=== PATIENT | female | born 1955 | race Caucasian/White ===

== ENCOUNTER 2019-04-26 13:24 | Outpatient (CLI) | payer BC, MEDICARE, SELFPAY ==
--- NOTE | ~2019-04-26 | XR_ITS ---
XR thoracic spine 3V 04/26/2019 14:24 Indication: Back pain Procedure: 3 views thoracic spine Comparison: No prior studies for comparison. Findings: There is mild thoracic spondylosis. No fracture, subluxation or dislocation. There is mild shaped curvature of the thoracic spine. Paraspinal soft tissues within normal limits. Pedicles are in tact. Surrounding osseous structures are unremarkable. Impression: 1: Mild thoracic spondylosis. Reviewed, dictated and finalized at location A. CTOR DATA ARCHITECTURE Impression: 1: Mild thoracic spondylosis.
--- NOTE | ~2019-04-26 | XR_ITS ---
XR lumbar spine 2-3V 04/26/2019 14:24 Indication: Low back pain Procedure: 3 views lumbar spine Comparison: No prior studies for comparison. Findings: There is mild disc narrowing at all lumbar levels. No fracture, subluxation or dislocation. No evidence for spondylolysis or spondylolisthesis. There is atherosclerosis of the aorta. Impression: 1: Mild lumbar spondylosis. Reviewed, dictated and finalized at location A. WORKER Impression: 1: Mild lumbar spondylosis.
--- NOTE | ~2019-04-26 | CT_ITS ---
EXAMINATION:CT lung screening DATE: 04/26/2019 14:12 INDICATION: Tobacco use. Current smoker with 50 pack year history. TECHNIQUE: Computed tomography (CT) of the chest was performed without intravenous contrast. Automate d exposure control and iterative reconstruction technique were employed. The dose-length product (DLP ) was 146.18 mGy-cm. COMPARISON: CT abdomen and pelvis 08/03/2018 FINDINGS: There is mild emphysema. There is mild scarring at the lung apices. Again seen is a 4 mm no dule in left lower lobe. There are mild chronic peripheral reticular opacities in the inferior lungs. There are a few other scattered nodules in the lungs measuring up to 3 mm. No pleural effusion. The heart size is normal. There are coronary artery calcifications. No pericardial effusion. There is a s mall sliding hiatal hernia. There is mild thoracic spondylosis. IMPRESSION: 1. Lung-RADS category 2: Benign appearance or behavior. Continue annual screening with noncontrast lo w-dose chest CT in 12 months. Reviewed, dictated and finalized at location B. ITY REVIEWER IMPRESSION: 1. Lung-RADS category 2: Benign appearance or behavior. Continue annual screeni ng with noncontrast low-dose chest CT in 12 months.
--- NOTE | ~2019-04-26 | XR_ITS ---
EXAMINATION: XR chest 2V 04/26/2019 14:24 INDICATION: Tobacco use. PROCEDURE: 2 view chest COMPARISON: Comparison to multiple prior studies sequentially, with oldest reviewed study dated 01/12. FINDINGS: The lungs are clear. The cardiomediastinal silhouette is within normal limits. There are no pleural effusions. There is no pneumothorax suspected. IMPRESSION: 1: NO ACUTE CARDIOPULMONARY DISEASE. Reviewed, dictated and finalized at location A. UTING ARCHITECT
--- NOTE | ~2019-04-26 | XR_ITS ---
EXAMINATION: XR tibia fibula RT 2V DATE: 04/26/2019 14:24 INDICATION: Right knee pain TECHNIQUE: Anteroposterior and lateral views of the right tibia and fibula were obtained. COMPARISON: Right knee radiographs dated 09/06/2018 FINDINGS: Right total knee arthroplasty with patellar resurfacing which appears to remain well seated in near-a natomic alignment. No fracture. Normal joint space at the right ankle and hindfoot. Soft tissues are unremarkable. No right ankle joint effusion. IMPRESSION: 1. Right total knee arthroplasty. No acute osseous abnormality. Reviewed, dictated and finalized at location A. RANGER
--- NOTE | ~2019-04-26 | XR_ITS ---
EXAMINATION: XR tibia fibula LT 2V DATE: 04/26/2019 14:24 INDICATION: Left knee pain TECHNIQUE: Anteroposterior and lateral views of the left tibia and fibula were obtained. COMPARISON: Left knee radiographs dated 12/04/2014 FINDINGS: Again seen is a left total knee arthroplasty with patellar resurfacing which appears to remain well s eated in near anatomic alignment. No fracture. No periprosthetic lucency to suggest loosening or infe ction. Although only partially imaged at the cephalad margin of the adonj-mt-lusg there appears to be increased density at the suprapatellar pouch suggesting a possible left knee joint effusion. Left an kle joint space appears relatively preserved. There is however a small lucent lesion with thin sclero tic margins at the medial aspect of the talar dome consistent with degenerative subchondral cyst or o steochondral lesion. No left ankle joint effusion. Soft tissues are otherwise unremarkable. IMPRESSION: 1. Left total knee arthroplasty with suggestion of possible left knee joint effusion. 2. Likely osteochondral lesion at the medial aspect of the talar dome. Reviewed, dictated and finalized at location A. K TECHNICIAN IMPRESSION: 1. Left total knee arthroplasty with suggestion of possible left knee joint eff usion. 2. Likely osteochondral lesion at the medial aspect of the talar dome.
[2019-04-26 14:35] LABS: Hematocrit 44.6 % (37.0-47.0); Hemoglobin 14.1 g/dL (12.0-15.0); Mean Corpuscular HGB Conc 31.6 g/dl (32-36); Mean Corpuscular Hemoglobin 29.1 pg (26-34); Mean Corpuscular Volume 92.1 fl (80-100); Mean Platelet Volume 10.7 fl (7.4-10.4); Platelet Count Result 270 k/mm3 (150-375); Red Blood Count 4.84 M/mm3 (4.2-5.4); Red Cell Distribution Width 14.6 % (11.5-14.5); White Blood Count 7.1 K/mm3 (4.5-10.0)
[2019-04-26 14:37] LABS: Add Urine Microscopic? NO; Appearance Urine Clear (Clear); Bilirubin Urine Negative (Negative); Blood Urine Negative (Negative); Color Urine Straw (Yellow); Glucose Urine UA Negative (Negative); Ketones Urine Negative (Negative); Leukocyte Esterase Ur Negative LEU/UL (NEGATIVE); Nitrate Urine Negative (Negative); Protein Urine Negative (Negative); Specific Grav Ur 1.009 (1.001-1.035); Urobilinogen Urine Negative mg/dL (<2.0)
[2019-04-26 14:48] LABS: Alanine Aminotransferase 19 U/L (4-35); Albumin Level 4.2 g/dL (3.5-5.1); Alkaline Phosphatase 139 U/L (38-126); Amylase 72 U/L (30-110); Aspartate Amino Transferase 22 U/L (14-36); Bilirubin,Total 0.6 mg/dL (0.2-1.3); Blood Urea Nitrogen 10 mg/dL (7-17); Calcium 9.7 mg/dL (8.4-10.2); Carbon Dioxide 28 mmol/L (22-30); Chloride 103 mmol/L (98-107); Cholesterol 133 mg/dL (0-200); Estimated Glomerular Filt Rate > 60; Glucose 105 mg/dL (65-105); HDL Direct 29 mg/dL; Lipase 150 U/L (23-300); Phosphorus 3.9 mg/dL (2.5-4.5); Sodium 140 mmol/L (137-145); Triglycerides 177 mg/dL (<150)
[2019-04-26 14:51] LABS: Hemoglobin A1C 7.2 % (<5.7)
[2019-04-26 15:00] LABS: LDL Cholesterol Direct 84 mg/dL
[2019-04-26 15:05] LABS: Erythrocyte Sedimentation Rate 29 mm/hr (0-20)
[2019-04-26 15:06] LABS: Creatinine Urine 31.9 mg/dL
[2019-04-26 15:18] LABS: Hepatitis B Surface Antigen Negative (Negative)
[2019-04-26 15:24] LABS: Free T4 Free Thyroxine 1.18 ng/mL (0.78-2.19); HAV RESULT Negative (Negative); Hepatitis B Core IgM Result Negative (Negative)
[2019-04-26 15:33] LABS: Microalbumin Urine Random < 6.0 mg/L (0-16.7)
[2019-04-26 15:34] LABS: MALB Creatinine Ratio < 18.8 mg/g (0-30)
[2019-04-26 15:36] LABS: Hepatitis C Virus Antibody Negative (Negative)
== END 2019-04-26 13:25 | disposition home or self-care (01) ==
LOC: ANHIMG 13:30
PROVIDERS: Visit Provider Emergency Medicine
DX: M12.9 Arthropathy, unspecified (principal); E11.9 Type 2 diabetes mellitus without complications; R05 Cough; Z12.2 Encounter for screening for malignant neoplasm of respiratory organs; Z72.0 Tobacco use
CPT/HCPCS: 36415; 71046; 72072; 72100; 73590; 80053; 80061; 80069; 81003; 82043; 82150; 83036; 83690; 84100; 84439; 84443; 85027; 85652; 86038; 86039; G0297

== ENCOUNTER 2019-07-25 10:06 | Outpatient (CLI) | payer BC, MEDICARE, SELFPAY ==
[2019-07-25] VITALS (7 sets, daily range): PULSE 73–101; O2SAT 85–97
--- NOTE | 2019-07-25 12:02 | HOMEO2EVAL ---
Home Oxygen Evaluation RC: Home Oxygen (O2) Evaluation Start: 07/25/19 11:53 Freq: Status: Active Protocol: RPE Activity Type Activity Date Activity User E-Sign Co-Sign Detail Recorded Client Recorded Date Recorded By Document 07/25/19 11:00 LORIE [email or web address] 07/25/19 12:02 LORIE Document 07/25/19 11:03 LORIE [email or web address] 07/25/19 12:02 LORIE Document 07/25/19 11:05 LORIE [email or web address] 07/25/19 12:02 LORIE Document 07/25/19 11:07 LORIE [email or web address] 07/25/19 12:02 LORIE Document 07/25/19 11:10 LORIE [email or web address] 07/25/19 12:02 LORIE Document 07/25/19 11:13 LORIE [email or web address] 07/25/19 12:02 LORIE Document 07/25/19 11:25 LORIE [email or web address] 07/25/19 12:02 LORIE 07/25/19 07/25/19 07/25/19 11:00 11:03 11:05 Home O2 Evaluation Test Phase Resting Exercise Exercise Oxygen Delivery Room Air Room Air Nasal Cannula Oxygen Flow Rate (L/min) 1 Pulse Oximetry (90-100 %) 97 85 L 85 L Pulse Rate (60-100 beats/min) 73 101 H Ambulation Distance (feet) Home Oxygen Evaluation Comments Treatment Charges O2 Evaluation 07/25/19 07/25/19 07/25/19 11:07 11:10 11:13 Home O2 Evaluation Test Phase Exercise Exercise Exercise Oxygen Delivery Nasal Cannula Nasal Cannula Nasal Cannula Oxygen Flow Rate (L/min) 2 3 4 Pulse Oximetry (90-100 %) 86 L 87 L 91 Pulse Rate (60-100 beats/min) 92 90 Ambulation Distance (feet) 600 Home Oxygen Evaluation Comments PT REQUIRES 4 L WITH ACTIVITY ONLY Treatment Charges 07/25/19 11:25 Home O2 Evaluation Test Phase Resting Oxygen Delivery Room Air Oxygen Flow Rate (L/min) Pulse Oximetry (90-100 %) 96 Pulse Rate (60-100 beats/min) 76 Ambulation Distance (feet) Home Oxygen Evaluation Comments Treatment Charges
--- NOTE | 2019-07-25 12:03 | PCRCNOTE ---
NO 6MWT COMPLETED, PT DESATS WITH WALKING, HOME O2 EVAL COMPLETED AND FAXED TO DR OFFICE. NEEDED 4 L WITH ACTIVITY. OFFICE TO SET UP
--- NOTE | 2019-07-25 12:04 | PCRCNOTE ---
NO POST SPIROMETRY COMPLETED. PT USED ALBUTEROL INHALER BEFORE COMING IN FOR TEST.
--- NOTE | 2019-07-29 14:02 | WPDPFTINT ---
PFT Interpretation PFT Interpretation: DOS: 07/25/2019 REQUESTING: Dr Neal REASON FOR TESTING: Shortness of breath PULMONARY FUNCTION TESTS Results are reproducible. Spirometry: FEV1 is 61%, moderately reduced, 1.3 L. FVC is mildly reduced, 71% predicted. FEV1% is reduced consistent with airflow obstruction. The [facility]01-07% is extremely reduced 30%. No bronchodilator was given as the patient used albuterol prior to arrival for testing. Lung volumes: Total lung capacity is 118%, normal. Residual volume is severely increased at 193% predicted consistent with air trapping. Diffusion: DLCO is 54%, moderately decreased. Flow volume loop: Irregular in shape, not reliable. IMPRESSION: Moderate obstructive ventilatory impairment, severe air trapping, moderate diffusion impairment. No bronchodilator was given due to the patient using albuterol prior to testing. This pattern can be seen in emphysema. Carole Neal MD
== END 2019-07-25 10:07 | disposition home or self-care (01) ==
PROVIDERS: PCP Family Medicine; Visit Provider Internal Medicine Critical Care Medicine
DX: J44.9 Chronic obstructive pulmonary disease, unspecified (principal)
CPT/HCPCS: 94375; 94618; 94726; 94729

== ENCOUNTER 2019-11-27 09:07 | Outpatient (CLI) | payer BC, MEDICARE, SELFPAY ==
--- NOTE | ~2019-11-27 | US_ITS ---
EXAMINATION: US aorta DATE: 11/27/2019 09:38 INDICATION: Abdominal aortic aneurysm without rupture TECHNIQUE: Grayscale, color Doppler, and pulsed Doppler images of the aorta and common iliac arteries were obtained. COMPARISON: 07/03/2018 FINDINGS: Maximum vascular dimensions are as follows: Proximal aorta: 2.5 cm Mid aorta: 2.3 cm Distal aorta: 4.4 cm Right common iliac artery: 1.4 cm Left common iliac artery: 1.8 cm Again seen is a fusiform infrarenal abdominal aortic aneurysm which measures 4.4 x 4.0 cm, previously up to 3.5 cm. IMPRESSION: 1. Fusiform infrarenal abdominal aortic aneurysm with sonographic increase in size. Reviewed, dictated and finalized at location A. IMPRESSION: 1. Fusiform infrarenal abdominal aortic aneurysm with sonographic increase in s ize.
== END 2019-11-27 09:08 | disposition home or self-care (01) ==
LOC: ANHIMG 09:12
PROVIDERS: PCP Family Medicine; Visit Provider Family Medicine
DX: I71.4 Abdominal aortic aneurysm, without rupture (principal)
CPT/HCPCS: 76775

== ENCOUNTER 2020-02-12 07:45 | Outpatient (CLI) | payer BC, MEDICARE, SELFPAY ==
--- NOTE | ~2020-02-12 | MR_ITS ---
EXAMINATION: MR MRCP wo con/w 3D wo ind pp DATE: 02/12/2020 09:15 INDICATION: Pancreatic cyst. TECHNIQUE: Magnetic resonance imaging (MRI) of the abdomen was performed without and with 16 mL Multi Agustin intravenous contrast. Sequences included coronal T2-weighted FS FSE, coronal T2-weighted FSE, a xial T1-weighted LAVA, coronal FS FIESTA, axial dual-echo T1-weighted SPGR, coronal lava-FLEX, sagitt al T2-weighted FSE, axial T2-weighted FSE, and axial DWI. Thick-slab T2-weighted FSE images were obta ined for magnetic resonance cholangiopancreatography (MRCP). Maximum intensity projection 3-D reconst ructions of the volumetric data were created by the technologist. Postcontrast sequences included cor onal LAVA-flex and time course of axial T1-weighted LAVA. COMPARISON: MRCP 02/16/2016 FINDINGS: ABDOMEN MRI: There is diffuse hepatic steatosis. The liver and spleen are normal. There are changes o f cholecystectomy. There are 7 mm and 5 mm cystic lesions in the body of pancreas that communicate wi th the main pancreatic duct. The adrenal glands and right kidney are normal. There is mild atrophy of left kidney. There are no dilated loops of bowel. There are no pathologically enlarged lymph nodes. There is no free intraperitoneal fluid. There is a 3.6 cm fusiform aneurysm of infrarenal aorta. ABDOMEN MRCP: The common duct is normal in caliber. No choledocholithiasis. The main pancreatic duct is normal in caliber. Again seen are the cystic lesions in the body of the pancreas. IMPRESSION: 1. Small cystic lesions of the body of the pancreas that communicate with the main pancreatic duct, s table from 02/16/2016, most likely benign. Abdomen MRI without and with contrast is recommended in on e year. 2. 3.6 cm fusiform aneurysm of infrarenal aorta. Reviewed, dictated and finalized at location A. IMPRESSION: 1. Small cystic lesions of the body of the pancreas that communicate with the m ain pancreatic duct, stable from 02/16/2016, most likely benign. Abdomen MRI wi thout and with contrast is recommended in one year. 2. 3.6 cm fusiform aneurysm of infrarenal aorta.
[2020-02-12 08:26] LABS: Estimated Glomerular Filt Rate > 60
== END 2020-02-12 07:46 | disposition home or self-care (01) ==
LOC: ANHIMG 07:55
PROVIDERS: PCP Family Medicine
DX: K86.2 Cyst of pancreas (principal); I71.4 Abdominal aortic aneurysm, without rupture
CPT/HCPCS: 74181; 76376; A9577

== ENCOUNTER 2020-02-12 09:39 | Outpatient (CLI) | payer BC, MEDICARE, SELFPAY ==
[2020-02-12 10:30] LABS: Basophils Percent Auto 0.3 % (0.2-1.2); Eosinophils Absolute Auto 0.1 K/mm3 (0-0.3); Eosinophils Percent Auto 1.3 % (0-4.4); Hematocrit 43.1 % (37.0-47.0); Hemoglobin 14.3 g/dL (12.0-15.0); Immature Granulocyte Absolute 0.01 K/mm3 (0.00-0.031); Immature Granulocyte Percent A 0.2 % (0-0.5); Lymphocytes Absolute Auto 2.26 K/mm3 (0.9-3.2); Lymphocytes Percent Auto 37.5 % (18.3-44.2); Mean Corpuscular HGB Conc 33.2 g/dl (32-36); Mean Corpuscular Hemoglobin 30.4 pg (26-34); Mean Corpuscular Volume 91.7 fl (80-100); Mean Platelet Volume 10.6 fl (7.4-10.4); Monocytes Absolute Auto 0.3 K/mm3 (0.1-0.6); Monocytes Percent Auto 4.8 % (2.6-8.5); Neutrophils Absolute Auto 3.4 K/mm3 (1.3-6.7); Neutrophils Percent Auto 55.9 % (45.5-73.1); Platelet Count Result 197 k/mm3 (150-375); Red Cell Distribution Width 14.1 % (11.5-14.5)
[2020-02-12 10:39] LABS: INR 0.9; Prothrombin Time 11.9 Seconds (11.1-14.7)
[2020-02-12 10:43] LABS: Alanine Aminotransferase 25 U/L (4-35); Albumin Level 4.3 g/dL (3.5-5.1); Alkaline Phosphatase 113 U/L (38-126); Anion Gap 6 mmol/L (8-16); Aspartate Amino Transferase 25 U/L (14-36); Bilirubin,Total 0.4 mg/dL (0.2-1.3); Blood Urea Nitrogen 12 mg/dL (7-17); Calcium 9.5 mg/dL (8.4-10.2); Carbon Dioxide 29 mmol/L (22-30); Chloride 106 mmol/L (98-107); Estimated Glomerular Filt Rate > 60; Glucose 125 mg/dL (65-105); Potassium 4.8 mmol/L (3.4-5.0); Sodium 141 mmol/L (137-145)
== END 2020-02-12 09:40 | disposition home or self-care (01) ==
PROVIDERS: PCP Family Medicine; Visit Provider Internal Medicine Cardiovascular Disease
DX: I25.118 Atherosclerotic heart disease of native coronary artery with other forms of angina pectoris (principal); Z01.810 Encounter for preprocedural cardiovascular examination
CPT/HCPCS: 36415; 80053; 85025; 85610

== ENCOUNTER 2020-02-15 00:51 | Outpatient (CLI) | payer BC, MEDICARE, SELFPAY ==
[2020-02-15 18:05] LABS: SARS-CoV-2 RNA PCR Negative
== END 2020-02-15 00:52 | disposition home or self-care (01) ==
LOC: ANHCOVIDDT 00:51
PROVIDERS: PCP Family Medicine; Visit Provider Internal Medicine Cardiovascular Disease
DX: Z01.812 Encounter for preprocedural laboratory examination (principal); Z20.828 Contact with and (suspected) exposure to other viral communicable diseases
CPT/HCPCS: 87635; C9803; U0003

== ENCOUNTER 2020-02-18 00:16 | Day surgery (SDC) | payer BC, MEDICARE, SELFPAY ==
[2020-02-18] VITALS (17 sets, daily range): BP systolic 101–125; BP diastolic 56–93; PULSE 55–79; RESP 14–20; TEMP 36–36.7; O2SAT 94–100; BMI 32.0
--- NOTE | 2020-02-18 08:41 | WPDMODSED ---
Moderate Sedation Note-Pt Data Patient Data Allergies Allergy/AdvReac Type Severity Reaction Status Date / Time canagliflozin Allergy Severe PANCREATITI Verified 02/17/20 15:38 S meperidine Allergy Severe TONGUE Verified 02/17/20 15:38 SWELLING/HIVES methotrexate Allergy Severe PANCREATITI Verified 02/17/20 15:38 S metformin AdvReac Diarrhea Verified 02/17/20 15:38 Home Medications Medication Instructions Recorded Confirmed Type Lantus U-100 Insulin 30 unit SUBCUT HS 03/07/19 02/18/20 History atorvastatin 80 mg PO DAILY 03/07/19 02/18/20 History carvedilol 3.125 mg PO BID 03/07/19 02/18/20 History lisinopril 5 mg PO DAILY 03/07/19 02/18/20 History tofacitinib 11 mg tablet,extended 11 mg PO DAILY 07/11/19 02/18/20 History release 24 hr fluticasone fur. 100 mcg-umeclid 1 inhalation INHALATION Q24H 90 10/18/19 02/18/20 Rx 62.5 mcg-vilant 25 mcg Days #28 each inhalat.powder albuterol sulfate 2.5 mg INHALATION Q4H PRN 10/29/19 02/17/20 History aspirin 81 mg tablet,delayed 81 mg PO DAILY tablet 10/29/19 02/18/20 History release glipizide 5 mg tablet 2.5 mg PO BID tablet 10/30/19 02/18/20 History ticagrelor 60 mg tablet 60 mg PO Q12H 10/30/19 02/18/20 History ezetimibe 10 mg PO DAILY 02/17/20 02/18/20 History isosorbide mononitrate 30 mg PO DAILY 02/17/20 02/18/20 History nitroglycerin 0.4 mg SUBLINGUAL Q5M PRN 02/17/20 02/17/20 History ergocalciferol (vitamin D2) 1,250 mcg PO WEEKLY 02/18/20 02/18/20 History pregabalin 50 mg PO BID 02/18/20 02/18/20 History Current Medications: Active Medications Sodium Chloride (Normal Saline Iv) 500 mls @ 100 mls/hr IV CONT .Q5H MARIA T Sedation/Anesthesia: No previous sedation/anesthesia problems (including family history). [facility] Past Medical History Medical History (Updated 10/30/19 @ 18:22 by Cholo Wilson MD) Abdominal aortic aneurysm (AAA) without rupture Arthritis Edmonds's palsy CAD in [place] artery Cataracts, bilateral Cholecystitis, acute COPD (chronic obstructive pulmonary disease) Coronary artery disease Diverticulitis Dyslipidemia Emphysema (subcutaneous) (surgical) resulting from a procedure Fatty liver disease, nonalcoholic Fibromyalgia GERD (gastroesophageal reflux disease) Hemorrhoids History of blood transfusion History of chemotherapy History of pancreatitis Hypercholesterolemia Irritable bowel syndrome Kidney stones Mitral valve prolapse Obstructive sleep apnea Osteoporosis Pancreatitis Peripheral neuropathy Peripheral polyneuropathy Rectal polyp Rheumatoid arthritis Sleep apnea Tobacco abuse Tonsillectomy planned Type 2 diabetes mellitus Type 2 diabetes mellitus without complication, without long-term current use of insulin Ulcer Vitamin D deficiency Surgical History Surgical History (Updated 10/30/19 @ 13:51 by Cholo Wilson MD) H/O cardiac catheterization with 4 cardiac stents History of cholecystectomy History of coronary artery stent placement 01/2018 and 04/2016 History of incisional hernia repair Family History Family History Father Family history of emphysema Other Cerebrovascular accident Diabetes mellitus Family history of cardiovascular disease Family history of coronary artery disease Family history of heart disease in male family member before age 55 Family history of lupus erythematosus Family history of osteoarthritis Family history of rheumatoid arthritis Family history of tuberculosis Hypertension Social History Social History (Updated 10/18/19 @ 10:16 by Ellie Macedo [facility]) Social History: started age 16, up at most 3 ppd; quit totally 2 years ago in Apr; restarted after of a niece and 2 brothers, now smokes less about half pack/day. Smoking packs per day: 0.75 Smoking cigarettes per day: 15.0 Years smoked: 48 Smoking pack-years: 36.00 Smoking status: Current every day smoker Tobacco t
--- NOTE | 2020-02-18 08:52 | PM.IMHP ---
H&P: HPI History of Present Illness Date/Time: 02/18/20 08:52 Chief complaint: CAD, stable angina Narrative: Keyla Arreaga is a 64 year old female With multiple medical problems -CAD, history of non ST elevation CT status post PCI / stenting of totally occluded mid LAD using 2.5 x 20 mm everolimus eluting stent on 12/22/2016, status post stenting of proximal LAD using 3.5 x 12 mm everolimus eluting stent, status post balloon angioplasty of ISR of major diagonal branch using a noncompliant balloon on 02/20/2018; type 2 diabetes mellitus, dyslipidemia, rheumatoid arthritis, chronic pancreatitis, AAA 3 cm from 01/29/2016 CT scan, tobacco abuse. patient has been experiencing recurrent episodes of chest discomfort. Her MPI from 12/18/2019 showed predominantly fixed defect with emelina-infarct ischemia in the anterior/anteroseptal area. Due to the recurrent episodes of chest discomfort, cardiac catheterization was recommended to re-evaluate coronary anatomy and rule out InStent restenosis. Review of Systems Review of Systems: Narrative: General: Negative for fever, chills, fatigue Psychological: positive for anxiety Ophthalmic: negative for loss of vision ENT: Negative for epistaxis, headaches Allergy and immunology: Negative for hives, nasal congestion Hematologic and lymphatic: Negative for overt bleeding problems Endocrine: Negative for hot flashes, palpitations Respiratory: Negative for cough, hemoptysis Cardiovascular: positive for chest pain Gastrointestinal: Negative for abdominal pain, nausea, vomiting, hematochezia Musculoskeletal: Negative for myalgia, joint pains Neurological: Negative for weakness Dermatological: Negative for rash, skin discoloration PMFSH Past Medical History Medical History Abdominal aortic aneurysm (AAA) without rupture Arthritis Edmonds's palsy CAD in [place] artery Cataracts, bilateral Cholecystitis, acute COPD (chronic obstructive pulmonary disease) Coronary artery disease Diverticulitis Dyslipidemia Emphysema (subcutaneous) (surgical) resulting from a procedure Fatty liver disease, nonalcoholic Fibromyalgia GERD (gastroesophageal reflux disease) Hemorrhoids History of blood transfusion History of chemotherapy History of pancreatitis Hypercholesterolemia Irritable bowel syndrome Kidney stones Mitral valve prolapse Obstructive sleep apnea Osteoporosis Pancreatitis Peripheral neuropathy Peripheral polyneuropathy Rectal polyp Rheumatoid arthritis Sleep apnea Tobacco abuse Tonsillectomy planned Type 2 diabetes mellitus Type 2 diabetes mellitus without complication, without long-term current use of insulin Ulcer Vitamin D deficiency Surgical History Surgical History H/O cardiac catheterization with 4 cardiac stents History of cholecystectomy History of coronary artery stent placement 01/2018 and 04/2016 History of incisional hernia repair Family History Family History Father Family history of emphysema Other Cerebrovascular accident Diabetes mellitus Family history of cardiovascular disease Family history of coronary artery disease Family history of heart disease in male family member before age 55 Family history of lupus erythematosus Family history of osteoarthritis Family history of rheumatoid arthritis Family history of tuberculosis Hypertension Social History Social History Social History: started age 16, up at most 3 ppd; quit totally 2 years ago in Apr; restarted after of a niece and 2 brothers, now smokes less about half pack/day. Smoking packs per day: 0.75 Smoking cigarettes per day: 15.0 Years smoked: 48 Smoking pack-years: 36.00 Smoking status: Current every day smoker Tobacco type: cigarettes Second hand tobacco smoke exposure: No
--- NOTE | 2020-02-18 08:57 | WPDCARDPROC ---
Cardiac Cath Procedure Note Date of procedure:: 02/18/20 Performing physician:: Karan Ngo MD
--- NOTE | 2020-02-18 09:26 | WPDCARDPROC ---
Cardiac Cath Procedure Note Date of procedure:: 02/18/20 Performing physician:: Karan Ngo MD Procedure Procedure note:: LEFT HEART CATHETERIZATION AND CORONARY ANGIOGRAM REPORT DATE OF PROCEDURE: 02/18/2020 INDICATION FOR PROCEDURE: chest pain, known CAD BRIEF CLINICAL HISTORY:64 year old female With multiple medical problems -CAD, history of non ST elevation [place] status post PCI / stenting of totally occluded mid LAD using 2.5 x 20 mm everolimus eluting stent on 12/22/2016, status post stenting of proximal LAD using 3.5 x 12 mm everolimus eluting stent, status post balloon angioplasty of ISR of major diagonal branch using a noncompliant balloon on 02/20/2018; type 2 diabetes mellitus, dyslipidemia, rheumatoid arthritis, chronic pancreatitis, AAA 3 cm from 01/29/2016 CT scan, tobacco abuse. patient has been experiencing recurrent episodes of chest discomfort. Her MPI from 12/18/2019 showed predominantly fixed defect with emelina-infarct ischemia in the anterior/anteroseptal area. Due to the recurrent episodes of chest discomfort, cardiac catheterization was recommended to re-evaluate coronary anatomy and rule out InStent restenosis. Benefits and risks of the procedure were discussed with the patient in depth, and informed consent was obtained prior to the procedure. Risks of the procedure include but are not limited to vascular complications including groin hematoma, retroperitoneal bleed, vessel perforation; periprocedural [place], cardiac arrhythmias, stroke, contrast induced nephropathy, and . After discussing all the benefits, risks and alternatives, patient was willing to proceed with the procedure. PROCEDURES PERFORMED: 1. Left heart catheterization- Selective left and right coronary angiogram; left ventriculogram and hemodynamic assessment 2. Selective right common femoral angiogram and deployment of Angio-Seal hemostatic device 3. Moderate sedation-CPT code 83774 MODERATE SEDATION: Midazolam 3 mg; fentanyl 75 mcg; Start time 0850 , Stop time 0920 ; Total [id number] time 30 minutes; Lauryn Kaur RN was trained observer for moderate sedation. ACCESS SITE: Right common femoral artery PROCEDURE NOTE: After obtaining informed consent, patient was brought to catheterization lab and prepped and draped in a usual sterile manner. After local anesthesia with lidocaine, right common femoral artery access was taken with micropuncture needle followed by insertion of a 6 [place] sheath. Selective left and right coronary angiogram was performed using 5 [place] JL4 and JR4 catheters respectively. Orthogonal views were taken. Next, a 5 [place] pigtail catheter was advanced in the LV cavity and was flushed with normal saline. LV pressure measurement was performed. After this, left ventriculogram was performed. The catheter was flushed again, and gradient across the aortic valve was measured on the pullback of the catheter. Finally, selective right common femoral angiogram was performed. The common femoral arteries relatively smaller caliber, therefore, closure device was not used. Patient tolerated procedure well without any immediate procedure related complications. FINDINGS: LEFT MAIN CORONARY: The left main coronary artery is a medium caliber, long vessel without significant focal stenosis. The vessel bifurcates into LAD and left circumflex branches. LEFT ANTERIOR DESCENDING ARTERY: The LAD is a smaller caliber vessel, tapers distally and becomes a very small caliber vessel near LV apex. Previously placed stents in the proximal and mid segment are widely patent without significant normal arch. Major diagonal branch stent is patent with mildl diffuse luminal loss. There is about 50% narrowing in the lower part of the proximal LAD and upper part of the mid LAD at the origin of the diagonal branch. LEFT CIRCUMFLEX ARTERY: The left circumflex artery is a medium caliber vessel, with mild diffuse disease. The vessel continues as OM 1 b
--- NOTE | 2020-02-18 09:40 | SUR.PHASEII ---
0930-pt back to room from CCL. Groin soft and non-tender, no evidence of bleeding or hematoma noted. 5F sheath in place. Moderate right pedal pulse noted. Will continue to monitor.
--- NOTE | 2020-02-18 12:11 | SUR.PHASEII ---
0945-5F sheath pulled by Esthela Ricketts RN with firm pressure applied. Firm pressure discontinued at 1015. Groin soft and non-tender, no evidence of bleeding or hematoma noted. Moderate right pedal pulse noted. Will continue to monitor.
--- NOTE | 2020-02-18 17:32 | SUR.PHASEII ---
1725-pt given D/C orders and instructions. Questions answered and verbalized understanding. AOx4. Groin soft and non-tender, no evidence of bleeding or hematoma noted. Moderate to weak right pedal pulse noted. Taken via wheelchair to waiting vehicle. No distress noted or verbalized at time of departure.
== END 2020-02-18 17:25 | disposition home or self-care (01) ==
PROVIDERS: PCP Family Medicine; Visit Provider Internal Medicine Cardiovascular Disease
PROC: 4A023N7 Measurement of Cardiac Sampling and Pressure, Left Heart, Percutaneous Approach (ICD-10-PCS; CPT 93452; principal; 2020-02-18 08:30)
DX: I25.10 Atherosclerotic heart disease of native coronary artery without angina pectoris (principal); T82.855A Stenosis of coronary artery stent, initial encounter; R07.9 Chest pain, unspecified; I25.2 Old myocardial infarction; Z95.5 Presence of coronary angioplasty implant and graft; E78.5 Hyperlipidemia, unspecified; E11.42 Type 2 diabetes mellitus with diabetic polyneuropathy; M06.9 Rheumatoid arthritis, unspecified; K86.1 Other chronic pancreatitis; I71.4 Abdominal aortic aneurysm, without rupture; Y83.8 Other surgical procedures as the cause of abnormal reaction of the patient, or of later complication, without mention of misadventure at the time of the procedure; J44.9 Chronic obstructive pulmonary disease, unspecified; K76.0 Fatty (change of) liver, not elsewhere classified; K21.9 Gastro-esophageal reflux disease without esophagitis; M79.7 Fibromyalgia; K58.9 Irritable bowel syndrome, unspecified; I34.1 Nonrheumatic mitral (valve) prolapse; G47.30 Sleep apnea, unspecified; M81.0 Age-related osteoporosis without current pathological fracture; E55.9 Vitamin D deficiency, unspecified; F17.210 Nicotine dependence, cigarettes, uncomplicated; Z79.4 Long term (current) use of insulin; Z79.82 Long term (current) use of aspirin
CPT/HCPCS: 93458; C1887; C1894; J1644; J2250; J3010; J7040

== ENCOUNTER 2020-02-25 07:36 | Outpatient (CLI) | payer BC, MEDICARE, SELFPAY ==
--- NOTE | ~2020-02-25 | DEXA_ITS ---
Bone Density Report Name: Keyla Arreaga Age: 64 Sex: Female Ethnicity: White Date of : 1955 Indication: monitoring treatment; cancer; asthma or emphysema; rheumatoid arthritis; postmenopausal Referring Provider: Cholo Wilson Study: Bone densitometry was performed. Exam Date: February 25, 2020 Accession number: [id number] Bone Density: Region BMD T-score Z-score Classification AP Spine (L1-L4) 0.970 -0.7 0.9 Normal Femoral Neck (Left) 0.655 -1.7 -0.3 Osteopenia Total Hip (Left) 0.970 0.2 1.4 Normal Total Hip Bilateral Avg 0.984 0.3 1.5 Normal Femoral Neck (Right) 0.671 -1.6 -0.2 Osteopenia Total Hip (Right) 0.996 0.4 1.6 Normal World Health Organization criteria for BMD impression classify patients as: Normal (T-score at or above -1.0), Osteopenia (T-score between -1.0 and -2.5), or Osteoporosis (T-score at or below -2.5). 10-year Fracture Risk: FRAX not reported because: Treated for osteoporosis Previous Exams: Region Exam Age BMD T-score BMD Change BMD Change Date g/cm2 vs Baseline vs Previous AP Spine(L1-L4) 02/25/2020 64 0.970 -0.7 -0.049(-4.8%)* -0.049(-4.8%)* 12/15/2014 59 1.018 -0.3 Total Hip(Left) 02/25/2020 64 0.970 0.2 -0.099(-9.3%)* -0.099(-9.3%)* 12/15/2014 59 1.069 1.0 Total Hip(Right) 02/25/2020 64 0.996 0.4 -0.068(-6.4%)* -0.068(-6.4%)* 12/15/2014 59 1.064 1.0 *Denotes significance at 95% confidence level, LSC for AP Spine = 0.022 g/cm2, LSC for Total Hip = 0.027 g/cm2 Clinical Information Provided by Patient: Smokes Has rheumatoid arthritis Is being treated for osteoporosis Has the following medical conditions: Asthma or Emphysema, Cancer Patient maximum height was 63 Menopause Age: 49 No regular weight bearing exercise Drinks caffeinated beverages Onset of menses at age 15 Number of children 2 Impression: The patient has low bone mass, based on the Left Femoral Neck T-score. The patient has risk factors, including: smoking. The BMD for the AP Spine(L1-L4) decreased, changing by -4.8% since the last DXA exam. The BMD for the Total Hip(Left) decreased, changing by -9.3% since the last DXA exam. The BMD for the Total Hip(Right) decreased, changing by -6.4% since the last DXA exam. Discussion: SIGNIFICANT BONE LOSS OBSERVED. Adherence to therapy (including calcium and vitamin D intake) should be assessed. If compliance is not a factor, review management and exclusion of secondary causes of bone loss.
--- NOTE | ~2020-02-25 | MM_ITS ---
EXAMINATION: MM screening jayda BI w rodney HISTORY: Screening TECHNIQUE: Craniocaudal and mediolateral oblique 3-D tomosynthesis images were obtained and synthetic 2-D images were generated. CAD analysis was submitted and interpreted. COMPARISON: Comparison to multiple prior studies sequentially, with oldest reviewed study dated 04/2016. BREAST PARENCHYMAL COMPOSITION: There are scattered areas of fibroglandular density. FINDINGS: There is no evidence of suspicious mass, calcification, or architectural distortion to sugg est malignancy in either breast. There has been no suspicious interval change. IMPRESSION: 1. No mammographic evidence of malignancy. 2. Recommend routine screening mammography in one year. BI-RADS Category 1: Negative Reviewed, dictated and finalized at location A. [facility]
== END 2020-02-25 07:37 | disposition home or self-care (01) ==
LOC: ANHIMG 07:39
PROVIDERS: PCP Family Medicine; Visit Provider Family Medicine
DX: Z12.31 Encounter for screening mammogram for malignant neoplasm of breast (principal); M85.89 Other specified disorders of bone density and structure, multiple sites; Z78.0 Asymptomatic menopausal state
CPT/HCPCS: 77063; 77067; 77080

== ENCOUNTER 2020-05-06 09:23 | Outpatient (CLI) | payer BC, MEDICARE, SELFPAY ==
--- NOTE | ~2020-05-06 | CT_ITS ---
EXAMINATION: CT lung screening EXAM DATE: 05/06/2020 09:54 INDICATION: Personal history of nicotine dependence. TECHNIQUE: Spiral low dose CT of the chest without contrast. Axial, coronal and sagittal images were reviewed. The dose-length product (DLP) for this examination was 142.13 mGy-cm. The exposure was t ailored according to patient size (auto mA exposure control), and iterative reconstruction (ASIR) was used as additional dose reduction technique. Comparison is made to prior examination from 04/26/2019. FINDINGS: Mild to moderate emphysema and hyperinflation. 3 mm pleural-based left lower lobe nodule un changed. 3 mm right upper lobe groundglass opacity unchanged. Tracheobronchial tree is patent. The re is no mediastinal, hilar or axillary lymphadenopathy. There are no pleural or pericardial effusi ons. There is no pneumothorax. Heart normal in size. There are dense left anterior descending c oronary arteries, could be severe coronary arterial sclerosis and/or coronary artery stent(s), which are difficult to distinguish due to cardiac motion on this non-gated exam. Correlate with cardiac his tory and consider cardiology consult if not recently evaluated. Upper abdomen is unremarkable. T here is mild thoracic spondylosis without osteoblastic or osteolytic lesions identified. IMPRESSION: 1. Lung-RADS category 2s, benign appearance or behavior (<1% chance of malignancy); recommend contin ued LDCT screening in 1 year. 2. Dense left anterior descending coronary arteries versus dense, clinical correlation. Consider car diology consult if these are not stents. Reviewed, dictated and finalized at location B. LIER QUALITY MANAGER IMPRESSION: 1. Lung-RADS category 2s, benign appearance or behavior (<1% chance of maligna ncy); recommend continued LDCT screening in 1 year. 2. Dense left anterior descending coronary arteries versus dense, clinical cor relation. Consider cardiology consult if these are not stents.
== END 2020-05-06 09:24 | disposition home or self-care (01) ==
PROVIDERS: PCP Family Medicine; Visit Provider Nurse Practitioner Family
DX: Z12.2 Encounter for screening for malignant neoplasm of respiratory organs (principal); Z87.891 Personal history of nicotine dependence
CPT/HCPCS: 71271

== ENCOUNTER 2020-06-18 07:59 | Outpatient (CLI) | payer MEDICARE, OTHER, SELFPAY ==
--- NOTE | ~2020-06-18 | US_ITS ---
EXAMINATION: US aorta EXAM DATE: 06/18/2020 08:37 INDICATION: I71.4 - Abdominal aortic aneurysm, without rupture F/U AAA. TECHNIQUE: Multiple grayscale and Doppler images of the aorta were obtained (by a technologist who pe rformed the scan) and subsequently reviewed. Comparison is made to prior examination from 11/27/2019. FINDINGS: Moderate amount of scattered aortic arteriosclerotic disease. The proximal aspect of the a portia measures 2.0 cm, the mid aspect measures up to 4.2 x 4.4 cm (last year maximal dimension was 4.0 x 4.4). IMPRESSION: Aneurysmal mid abdominal aorta up to 4.2 x 4.4 cm, stable or with minimal increase compar ed to last year. Reviewed, dictated and finalized at location B. 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
== END 2020-06-18 08:00 | disposition home or self-care (01) ==
PROVIDERS: PCP Family Medicine; Visit Provider Family Medicine
DX: I71.4 Abdominal aortic aneurysm, without rupture (principal)
CPT/HCPCS: 76775

== ENCOUNTER 2020-07-10 16:01 | Outpatient (CLI) | payer MEDICARE, OTHER, SELFPAY | END 2020-07-10 16:02 | disposition home or self-care (01) | LOC: ANHCOVIDVC 16:01 | PROVIDERS: PCP Family Medicine | DX: Z23 Encounter for immunization (principal) | CPT/HCPCS: 0001A; 91300 ==

== ENCOUNTER 2020-07-31 15:48 | Outpatient (CLI) | payer MEDICARE, OTHER, SELFPAY | END 2020-07-31 15:49 | disposition home or self-care (01) | LOC: ANHCOVIDVC 15:48 | PROVIDERS: PCP Family Medicine | DX: Z23 Encounter for immunization (principal) | CPT/HCPCS: 0002A; 91300 ==

== ENCOUNTER 2020-09-13 07:13 | Emergency (ER) | payer MEDICARE, OTHER, SELFPAY ==
[2020-09-13 07:20] VITALS: BP 145/84; PULSE 81; RESP 20; TEMP 36.2; O2SAT 100
[2020-09-13 07:38] LABS: Add Urine Microscopic? YES; Appearance Urine Cloudy (Clear); Bacteria Urine 1+ /hpf; Bilirubin Urine Negative (Negative); Blood Urine 3+ (Negative); Glucose Urine UA 1+ mg/dL (Negative); Ketones Urine Negative (Negative); Leukocyte Esterase Ur 2+ LEU/UL (Negative); Nitrate Urine Negative (Negative); Protein Urine 2+ mg/dL (Negative); RBC Urine 51-75 /hpf (0-2); Specific Grav Ur 1.005 (1.001-1.035); Squamous Epithelial Cell Urine Rare /hpf (Few); Urobilinogen Urine Negative mg/dL (<2.0); WBC Urine >75 /hpf
[2020-09-13 07:42] LABS: Color Urine Light Red (Yellow)
--- NOTE | 2020-09-13 08:27 | ED.FEMALEGU ---
HPI - Female Genitourinary General Chief complaint: Urogenital-Female Stated complaint: possible uti Time Seen by Provider: 09/13/20 08:11 Source: patient, family and RN notes reviewed Mode of arrival: ambulatory Limitations: no limitations History of Present Illness HPI Narrative: 64 years old white female with come this morning with severe burning urination and blood in the urine. Also complaining of bilateral flank pain. Patient denies any fever, chills, nausea, vomiting or having similar symptoms. Patient does not remember when the last time she had blood test. Related Data Home Medications Medication Instructions Recorded Confirmed Lantus U-100 Insulin 30 unit SUBCUT HS 03/07/19 09/13/20 atorvastatin 80 mg PO DAILY 03/07/19 09/13/20 carvedilol 3.125 mg PO BID 03/07/19 09/13/20 lisinopril 5 mg PO DAILY 03/07/19 09/13/20 tofacitinib 11 mg tablet,extended 11 mg PO DAILY 07/11/19 09/13/20 release 24 hr aspirin 81 mg tablet,delayed 81 mg PO DAILY tablet 10/29/19 09/13/20 release glipizide 5 mg tablet 2.5 mg PO BID tablet 10/30/19 09/13/20 ticagrelor 60 mg tablet 60 mg PO Q12H 10/30/19 09/13/20 ezetimibe 10 mg PO DAILY 02/17/20 09/13/20 isosorbide mononitrate 30 mg PO DAILY 02/17/20 09/13/20 nitroglycerin 0.4 mg SUBLINGUAL Q5M PRN 02/17/20 09/13/20 ergocalciferol (vitamin D2) 1,250 mcg PO WEEKLY 02/18/20 09/13/20 pregabalin 50 mg PO BID 02/18/20 09/13/20 Allergies Allergy/AdvReac Type Severity Reaction Status Date / Time canagliflozin Allergy Severe PANCREATITI Verified 09/13/20 07:23 S meperidine Allergy Severe TONGUE Verified 09/13/20 07:23 SWELLING/HIVES methotrexate Allergy Severe PANCREATITI Verified 09/13/20 07:23 S metformin AdvReac Diarrhea Verified 09/13/20 07:23 Review of Systems Review of Systems: Narrative: CONSTITUTIONAL: Denies fever, chills, or sweats. EYES: Denies visual changes, redness, or discharge. ENT: Denies rhinorrhea, congestion, sore throat, or otalgia. CARDIOVASCULAR: Denies chest pain, palpitations, or edema. RESPIRATORY: Denies cough or dyspnea. GASTROINTESTINAL: Denies abdominal pain, nausea, vomiting, or diarrhea. GENITOURINARY: Denies dysuria or hematuria. SKIN: Denies rash or itching. MUSCULOSKELETAL: Denies back pain, joint pain, or myalgia. NEUROLOGIC: Denies headache, numbness, or weakness. PSYCHIATRIC: Denies anxiety or depression. [facility] Past Medical History Medical History Abdominal aortic aneurysm (AAA) without rupture Arthritis Edmonds's palsy CAD in [place] artery Cataracts, bilateral Cholecystitis, acute COPD (chronic obstructive pulmonary disease) Coronary artery disease Diverticulitis Dyslipidemia Emphysema (subcutaneous) (surgical) resulting from a procedure Fatty liver disease, nonalcoholic Fibromyalgia GERD (gastroesophageal reflux disease) Hemorrhoids History of blood transfusion History of chemotherapy History of pancreatitis Hypercholesterolemia Irritable bowel syndrome Kidney stones Mitral valve prolapse Obstructive sleep apnea Osteoporosis Pancreatitis Peripheral neuropathy Peripheral polyneuropathy Rectal polyp Rheumatoid arthritis Sleep apnea Tobacco abuse Tonsillectomy planned Type 2 diabetes mellitus Type 2 diabetes mellitus without complication, without long-term current use of insulin Ulcer Vitamin D deficiency Surgical History Surgical History H/O cardiac catheterization with 4 cardiac stents History of cholecystectomy History of coronary artery stent placement 01/2018 and 04/2016 History of incisional hernia repair Family History Family History Father Family history of emphysema Other Cerebrovascular accident Diabetes mellitus Family history of cardiovascular disease Family history of coronary artery disease Family history of heart disease in male family
[2020-09-13] MEDS: NITROFURANTOIN MONOHYD MACROCR 100 MG CAP PO (08:38)
[2020-09-13] MEDS: PHENAZOPYRIDINE HCL 100 MG TABLET 200 MG PO (08:38)
[2020-09-13] MEDS: IBUPROFEN 600 MG TABLET PO (08:38)
== END 2020-09-13 08:48 | disposition home or self-care (01) ==
PROVIDERS: Emergency Provider Emergency Medicine; PCP Family Medicine
DX: N39.0 Urinary tract infection, site not specified (principal); R31.9 Hematuria, unspecified; I25.10 Atherosclerotic heart disease of native coronary artery without angina pectoris; J43.9 Emphysema, unspecified; E78.5 Hyperlipidemia, unspecified; E11.42 Type 2 diabetes mellitus with diabetic polyneuropathy; M06.9 Rheumatoid arthritis, unspecified; E55.9 Vitamin D deficiency, unspecified; G47.33 Obstructive sleep apnea (adult) (pediatric); K58.9 Irritable bowel syndrome, unspecified; K21.9 Gastro-esophageal reflux disease without esophagitis; M19.90 Unspecified osteoarthritis, unspecified site; Z79.82 Long term (current) use of aspirin; Z79.4 Long term (current) use of insulin; Z87.442 Personal history of urinary calculi; Z92.21 Personal history of antineoplastic chemotherapy; Z95.5 Presence of coronary angioplasty implant and graft; F17.210 Nicotine dependence, cigarettes, uncomplicated
CPT/HCPCS: 81001; 87077; 87086; 87088; 87186; 99283; A9270

== ENCOUNTER 2020-09-30 07:30 | Outpatient (CLI) | payer OTHER, MEDICARE, SELFPAY ==
--- NOTE | ~2020-09-30 | MR_ITS ---
EXAMINATION: MR MRCP wo/w con/w 3D wo ind DATE: 09/30/2020 09:08 INDICATION: Pancreatitis. TECHNIQUE: Magnetic resonance imaging (MRI) of the abdomen was performed without and with 16 mL Multi Agustin intravenous contrast. Sequences included coronal T2-weighted FS FSE, coronal T2-weighted FSE, a xial T1-weighted LAVA, coronal FS FIESTA, axial dual-echo T1-weighted SPGR, coronal lava-FLEX, sagitt al T2-weighted FSE, axial T2-weighted FSE, and axial DWI. Thick-slab T2-weighted FSE images were obta ined for magnetic resonance cholangiopancreatography (MRCP). Maximum intensity projection 3-D reconst ructions of the volumetric data were created by the technologist. Postcontrast sequences included cor onal LAVA-flex and time course of axial T1-weighted LAVA. COMPARISON: MRCP 02/12/2020, 02/16/2016 FINDINGS: ABDOMEN MRI: There is diffuse hepatic steatosis. There are 9 mm and 4 mm cystic lesions in the body o f the pancreas that communicate with the main pancreatic duct. The gallbladder is absent. The spleen, adrenal glands, and kidneys are normal. There is a 3.9 cm fusiform aneurysm of infrarenal aorta. The re is diverticulosis of the colon without evidence of diverticulitis. There are no dilated loops of b owel. There are no pathologically enlarged lymph nodes. There is no free intraperitoneal fluid. ABDOMEN MRCP: The common duct is normal in caliber. No choledocholithiasis. The main pancreatic duct is normal in caliber. IMPRESSION: 1. Small cystic lesions of the body of pancreas that can communicate with the main pancreatic duct wi th slight increase in size in the larger lesion, most likely benign. Abdomen MRI without and with con trast is recommended in one year. 2. 3.9 cm fusiform aneurysm of infrarenal aorta. Reviewed, dictated and finalized at location A. IMPRESSION: 1. Small cystic lesions of the body of pancreas that can communicate with the m ain pancreatic duct with slight increase in size in the larger lesion, most lik jose benign. Abdomen MRI without and with contrast is recommended in one year. 2. 3.9 cm fusiform aneurysm of infrarenal aorta.
[2020-09-30 08:16] LABS: Estimated Glomerular Filt Rate 50
== END 2020-09-30 07:31 | disposition home or self-care (01) ==
PROVIDERS: PCP Family Medicine
DX: K85.90 Acute pancreatitis without necrosis or infection, unspecified (principal); K86.2 Cyst of pancreas; I71.4 Abdominal aortic aneurysm, without rupture
CPT/HCPCS: 74183; 76376; A9577

== ENCOUNTER 2021-01-06 07:46 | Outpatient (CLI) | payer MEDICARE, OTHER, SELFPAY ==
--- NOTE | 2021-01-21 21:00 | WPDSLEEPSTUD ---
Sleep Study Date of Study: 01/06/21 Ordering Provider: Chip Flannery APRN Interpreting Physician: Carole Neal MD Sleep Study Type: Split Polysomnogram Height: 1.6 m Weight: 86.2 kg Body Mass Index: 33.6 Neck Circumference (inches): 17 [place]: 18 Reason for Sleep Study history of obstructive sleep apnea with CPAP * 02/12/2009 - Mild obstructive sleep apnea with an apnea-hypopnea index of 88.8, oxygen desaturation and heavy snoring Sleep History Keyla Arreaga is a 65 year old female with obstructive sleep apnea diagnosed in 2017. She was put on CPAP but was not able to tolerate a full face mask or a nasal mask. She wakes up at night gasping for breath and coughing. 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 She occasionally awakens from sleep feeling short of breath. She frequently awakens at night with heartburn, belching or coughing. She frequently snores loudly. She occasionally has trouble sleeping with a cold. She frequently wakes up gasping for breath at night. She constantly has breathing problems at night observed by others. She occasionally sweats excessively at night. She frequently notices her heart pounding or beating irregularly at night. She frequently falls asleep during the day, frequently falls asleep involuntarily rarely falls asleep while driving. She does not have loss of muscle tone with strong emotion. She does not have daytime difficulties due to excessive sleepiness. She is retired. She does not feel paralyzed on waking or falling asleep. She rarely has vivid dreamlike scenes on awakening or falling asleep. She does not feel afraid to go to sleep. She rarely has nightmares. She occasionally remembers her dreams. She does not have racing thoughts. She frequently feels sad or depressed. She does not have anxiety. She rarely has muscular tension. She constantly notices parts of her body jerking. She constantly kicks at night. She occasionally has crawling and aching feelings in her legs. She frequently has leg pain during the night. She occasionally has morning jaw pain. She does not grind her teeth during sleep. She constantly is bothered by pain during the day, but constantly awakened by pain at night. She constantly wakes up feeling stiff in the morning with sore achy muscles and pain in the neck and spine. She has fatigue, sexual problems, memory problems and concentration difficulties. She also has palpitations. Her normal bedtime is 11:30 p.m. falling asleep within 5 minutes. She may wake up once at night for 1/2 hour. During this time she may smoke and go to the bathroom. She wakes in the morning between 5:30 a.m. and 6:00 a.m.. She estimates getting 5-6 hours of sleep at night. Her weekend schedule is similar, going to bed at latest midnight. She takes naps in the afternoon or evening. A short nap 10 or 15 minutes is not refreshing. Habits: She is a current smoker. [facility] Past Medical History Medical History Abdominal aortic aneurysm (AAA) without rupture Arthritis Edmonds's palsy CAD in [place] artery Cholecystitis, acute COPD (chronic obstructive pulmonary disease) Coronary artery disease Diverticulitis Dyslipidemia Fatty liver disease, nonalcoholic Fibromyalgia GERD (gastroesophageal reflux disease) Hemorrhoids History of chemotherapy Irritable bowel syndrome Kidney stones Mitral valve prolapse Obstructive sleep apnea Osteoporosis Pancreatitis Peripheral neuropathy Rectal polyp Rheumatoid arthritis Sleep apnea Tobacco abuse Type 2 diabetes mellitus without complication, without long-term current use of insulin Ulcer Vitamin D deficiency Surgical History Surgical History Cataracts, bilateral H/O cardiac catheterization with 4 cardiac stents History of cholecystectomy History of coronary artery stent placement 01/2018 an
[2021-01-21 22:33] VITALS: BMI 33.6
== END 2021-01-07 06:48 | disposition home or self-care (01) ==
LOC: ANHCSM 07:53
PROVIDERS: PCP Family Medicine; Visit Provider Nurse Practitioner Family
DX: G47.33 Obstructive sleep apnea (adult) (pediatric) (principal)
CPT/HCPCS: 95811

== ENCOUNTER 2021-01-29 15:39 | Outpatient (CLI) | payer MEDICARE, SELFPAY ==
[2021-01-29 16:24] LABS: Add Urine Microscopic? YES; Appearance Urine Clear (Clear); Bilirubin Urine Negative (Negative); Blood Urine Negative (Negative); Color Urine Yellow (Yellow); Glucose Urine UA 2+ mg/dL (Negative); Ketones Urine Negative (Negative); Leukocyte Esterase Ur Negative LEU/UL (NEGATIVE); Mucus Urine Rare /lpf; Nitrate Urine Negative (Negative); Protein Urine Negative (Negative); RBC Urine 0-2 /hpf (0-2); Specific Grav Ur 1.015 (1.001-1.035); Squamous Epithelial Cell Urine Rare /hpf (Few); Urobilinogen Urine Negative mg/dL (<2.0)
== END 2021-01-29 15:40 | disposition home or self-care (01) ==
PROVIDERS: PCP Family Medicine; Visit Provider Urology
DX: N39.3 Stress incontinence (female) (male) (principal)
CPT/HCPCS: 81001

== ENCOUNTER 2021-02-19 14:51 | Emergency (ER) | payer MEDICARE, SELFPAY ==
[2021-02-19 14:56] VITALS: BP 124/93; PULSE 100; RESP 18; TEMP 36.3; O2SAT 99
--- NOTE | 2021-02-19 18:14 | PC.NURSE ---
called at 181
== END 2021-02-19 18:20 | disposition left against medical advice (07) ==
PROVIDERS: PCP Family Medicine
DX: U07.1 COVID-19 (principal)
CPT/HCPCS: 99199

== ENCOUNTER 2021-05-06 10:30 | Outpatient (CLI) | payer MEDICARE, SELFPAY ==
--- NOTE | ~2021-05-06 | CT_ITS ---
EXAMINATION:CT diagnostic chest w con DATE: 05/06/2021 11:02 INDICATION: Other nonspecific abnormal finding of lung field. Pulmonary nodules. TECHNIQUE: Computed tomography (CT) of the chest was performed with 75 mL Omnipaque 350 intravenous c ontrast. Automated exposure control and iterative reconstruction technique were employed. The dose-le ngth product (DLP) was 364.44 mGy-cm. COMPARISON: Chest CT 05/06/2020 FINDINGS: There is mild emphysema. There is mild scarring at the lung apices. There is mild atelectas is bilaterally. Again seen is a 4 mm nodule in right upper lobe. There are a few scattered nodules me asuring up to 3 mm. No pleural effusion. The heart size is normal. There are coronary artery calcific ations. No pericardial effusion. There is a small sliding hiatal hernia. There is cortical thinning o f the kidneys. There is moderate thoracic spondylosis and severe cervical spondylosis. IMPRESSION: 1. Lung-RADS category 2: Benign appearance or behavior. Continue annual screening with noncontrast lo w-dose chest CT in 12 months. Reviewed, dictated and finalized at location B. DO RESIDENT URGENT CARE IMPRESSION: 1. Lung-RADS category 2: Benign appearance or behavior. Continue annual screeni ng with noncontrast low-dose chest CT in 12 months.
[2021-05-06 10:58] LABS: Estimated Glomerular Filt Rate > 60
== END 2021-05-06 10:31 | disposition home or self-care (01) ==
LOC: ANHIMG 10:34
PROVIDERS: PCP Family Medicine; Visit Provider Nurse Practitioner
DX: R91.8 Other nonspecific abnormal finding of lung field (principal); I25.10 Atherosclerotic heart disease of native coronary artery without angina pectoris; K44.9 Diaphragmatic hernia without obstruction or gangrene; M47.813 Spondylosis without myelopathy or radiculopathy, cervicothoracic region
CPT/HCPCS: 71260; Q9967

== ENCOUNTER 2021-05-24 11:40 | Outpatient (CLI) | payer MEDICARE, SELFPAY ==
--- NOTE | ~2021-05-24 | XR_ITS ---
EXAMINATION: XR hip BI 2V w AP pelvis DATE: 05/24/2021 12:14 INDICATION: Ankylosing spondylitis of multiple sites TECHNIQUE: AP view the pelvis and two views of each hip were obtained. COMPARISON: 12/04/2014 FINDINGS: Bone alignment is normal. There is no fracture. There is mild osteoarthritis of the hips. N o abnormal sclerosis or erosion is identified. There are phleboliths of the pelvis. IMPRESSION: 1. No acute osseous abnormality. Reviewed, dictated and finalized at location B. ING WORKER
--- NOTE | ~2021-05-24 | XR_ITS ---
EXAMINATION: XR lumbar spine 2-3V DATE: 05/24/2021 12:14 INDICATION: Low back pain TECHNIQUE: Anteroposterior and lateral views of the lumbar spine, and cone-down lateral view of the l umbosacral junction were obtained. COMPARISON: 04/26/2019 FINDINGS: There is no fracture, dislocation, or subluxation. The vertebral body heights are normal. T here is mild loss of intervertebral disc space height throughout the lumbar spine. Small degenerative osteophytes project from the anterior endplates of multiple vertebral bodies. There is fusiform enla rgement of the infrarenal abdominal aorta, consistent with known aneurysm. IMPRESSION: 1. Mild lumbar spondylosis without acute findings or significant interval change. Reviewed, dictated and finalized at location B. ATCH MANAGER IMPRESSION: 1. Mild lumbar spondylosis without acute findings or significant interval denise gastelum
== END 2021-05-24 11:41 | disposition home or self-care (01) ==
LOC: ANHIMG 11:49
PROVIDERS: PCP Family Medicine; Visit Provider Internal Medicine
DX: M45.0 Ankylosing spondylitis of multiple sites in spine (principal); G47.01 Insomnia due to medical condition; M47.816 Spondylosis without myelopathy or radiculopathy, lumbar region
CPT/HCPCS: 72100; 73521

== ENCOUNTER 2021-06-09 07:59 | Outpatient (CLI) | payer MEDICARE, SELFPAY ==
--- NOTE | ~2021-06-09 | US_ITS ---
EXAMINATION: US aorta DATE: 06/09/2021 08:36 INDICATION: Abdominal aortic aneurysm without rupture TECHNIQUE: Grayscale, color Doppler, and pulsed Doppler images of the aorta and common iliac arteries were obtained. COMPARISON: 06/18/2020 FINDINGS: Maximum vascular dimensions are as follows: Proximal aorta: 2.7 cm Mid aorta: 4.6 cm Distal aorta: 1.8 cm Right common iliac artery: 1.4 cm Left common iliac artery: 1.1 cm There is a 4.6 x 4.1 cm fusiform aneurysm of the mid aorta without significant change. IMPRESSION: 1. 4.6 cm fusiform aneurysm of the mid abdominal aorta without significant change. Reviewed, dictated and finalized at location A. NE SERVICE STATION ATTENDANT IMPRESSION: 1. 4.6 cm fusiform aneurysm of the mid abdominal aorta without significant boo .
== END 2021-06-09 08:00 | disposition home or self-care (01) ==
LOC: ANHIMG 08:03
PROVIDERS: PCP Family Medicine; Visit Provider Internal Medicine Cardiovascular Disease
DX: I71.4 Abdominal aortic aneurysm, without rupture (principal)
CPT/HCPCS: 76775

== ENCOUNTER 2021-06-21 08:11 | Outpatient (CLI) | payer MEDICARE, SELFPAY ==
--- NOTE | ~2021-06-21 | MM_ITS ---
EXAMINATION: MM screening jayda BI w rodney HISTORY: Screening mammogram, family history of breast cancer in her sister. TECHNIQUE: Craniocaudal and mediolateral oblique 3-D tomosynthesis images were obtained and synthetic 2-D images were generated. CAD analysis was submitted and interpreted. COMPARISON: 02/25/2020, 12/12/2018 BREAST PARENCHYMAL COMPOSITION: There are scattered areas of fibroglandular density. FINDINGS: There is no evidence of suspicious mass, calcification, or architectural distortion to sugg est malignancy in either breast. There has been no suspicious interval change. IMPRESSION: 1. No mammographic evidence of malignancy. 2. Recommend routine screening mammography in one year. BI-RADS Category 1: Negative Reviewed, dictated and finalized at location A. AL WEAVER
== END 2021-06-21 08:12 | disposition home or self-care (01) ==
LOC: ANHIMG 08:12
PROVIDERS: PCP Family Medicine; Visit Provider Nurse Practitioner
DX: Z12.31 Encounter for screening mammogram for malignant neoplasm of breast (principal)
CPT/HCPCS: 77063; 77067

== ENCOUNTER 2021-06-24 01:18 | Day surgery (SDC) | payer MEDICARE, SELFPAY ==
[2021-05-20 12:31] VITALS: BMI 32.4
[2021-06-17 13:01] VITALS: BMI 32.4
[2021-06-24 08:15] VITALS: BP 138/85; PULSE 81; RESP 20; TEMP 36.4; O2SAT 100; BMI 32.5
[2021-06-24] MEDS: LACTATED RINGERS 1,000 ML 150 ML IV CONT (08:21)
[2021-06-24 08:22] LABS: Glucose Point of Care 176 mg/dl (65-105)
--- NOTE | 2021-06-24 08:51 | WPDANESEPPF ---
Anes - Initial Pre Proc Eval Procedure: Operation Date: 06/24/21 09:30 Proposed Procedures p Screening Colonoscopy - Eldon Carter MD Date/Time: 06/24/21 08:51 Surgeon: Eldon Carter MD Pre Op Diagnosis: neoplasm screening Patient Data Age: 65 Gender: F Height: 1.6 m Weight: 83.2 kg Last Vital Signs Temp 36.4 C L 06/24/21 08:15 Pulse 81 06/24/21 08:15 Resp 20 06/24/21 08:15 BP 138/85 06/24/21 08:15 Pulse Ox 100 06/24/21 08:15 Allergies Allergy/AdvReac Type Severity Reaction Status Date / Time canagliflozin Allergy Severe PANCREATITI Verified 06/24/21 08:13 S meperidine Allergy Severe TONGUE Verified 06/24/21 08:13 SWELLING/HIVES methotrexate Allergy Severe PANCREATITI Verified 06/24/21 08:13 S metformin AdvReac Diarrhea Verified 06/24/21 08:13 Home Medications Medication Instructions Recorded Confirmed Type atorvastatin 80 mg PO DAILY 03/07/19 06/24/21 History carvedilol 3.125 mg PO BID 03/07/19 06/24/21 History lisinopril 5 mg PO DAILY 03/07/19 06/24/21 History tofacitinib 11 mg tablet,extended 11 mg PO DAILY 07/11/19 06/24/21 History release 24 hr aspirin 81 mg tablet,delayed 81 mg PO DAILY tablet 10/29/19 06/24/21 History release nitroglycerin 0.4 mg SUBLINGUAL Q5M PRN 02/17/20 06/24/21 History ergocalciferol (vitamin D2) 1,250 mcg PO WEEKLY 02/18/20 06/24/21 History albuterol sulfate 2.5 mg INHALATION Q6H PRN #360 ml 08/03/20 06/24/21 Rx blood sugar diagnostic #50 ea 05/04/21 06/24/21 Rx blood-glucose meter #1 ea 05/04/21 06/24/21 Rx pen needle, diabetic 32 gauge x #50 ea 05/04/21 06/24/21 Rx 1/4 triamcinolone acetonide 0.1 % 1 applic TOPICAL BID 49 Days #30 g 05/10/21 06/24/21 Rx topical ointment albuterol sulfate 90 mcg/actuation 1 - 2 inh INHALATION Q4-6H PRN 05/12/21 06/24/21 Rx aerosol inhaler #8.5 g clopidogrel 75 mg PO DAILY 05/20/21 06/24/21 History glipizide 5 mg PO BID 05/20/21 06/24/21 History isosorbide mononitrate 60 mg PO DAILY 05/20/21 06/24/21 History pregabalin 100 mg PO HS 05/20/21 06/24/21 History dapagliflozin [Farxiga] 10 mg PO BIDWMEAL 06/17/21 06/24/21 History insulin glargine [Basaglar KwikPen 47 unit SUBCUT HS 06/17/21 06/24/21 History U-100 Insulin] Laboratory Tests 06/24/21 08:19 POC Capillary Glucose 176 mg/dl H mg/dl (65-105) Patient hx anesthesia problems: none Family hx anesthesia problems: none Results Review: All pre-operative results and documents have been reviewed as part of the pre-operative evaluation. [facility] Past Medical History Medical History Abdominal aortic aneurysm (AAA) without rupture Arthritis Edmonds's palsy CAD in [place] artery Cholecystitis, acute COPD (chronic obstructive pulmonary disease) Coronary artery disease Diverticulitis Dyslipidemia Fatty liver disease, nonalcoholic Fibromyalgia GERD (gastroesophageal reflux disease) Hemorrhoids History of chemotherapy Irritable bowel syndrome Kidney stones Mitral valve prolapse Obstructive sleep apnea Osteoporosis Pancreatitis Peripheral neuropathy Rectal polyp Rheumatoid arthritis Sleep apnea Tobacco abuse Ulcer Vitamin D deficiency Surgical History Surgical History Cataracts, bilateral H/O cardiac catheterization with 4 cardiac stents History of cholecystectomy History of coronary artery stent placement 01/2018 and 04/2016 History of incisional hernia repair Family History Family History Father Family history of emphysema Other Cerebrovascular accident Diabetes mellitus Family history of cardiovascular disease Family history of coronary artery disease Family history of heart disease in male family member before age 55 Family history of lupus erythematosus Family history of osteoarthritis Family history of rheumatoid arthritis
--- NOTE | 2021-06-24 08:53 | WPDGICN ---
Assessment and Plan Assessment and plan (1) Family history of colon cancer: Code(s): Z80.0 - Family history of malignant neoplasm of digestive organs Status: Acute Assessment and Plan: brother had colon cancer and a grandparent had colon cancer (2) Colon cancer screening: Code(s): Z12.11 - Encounter for screening for malignant neoplasm of colon Status: Acute Assessment and Plan: Colonoscopy with possible biopsy or polypectomy or cautery or injection of substances. (3) Change in bowel habits: Code(s): R19.4 - Change in bowel habit Status: Acute Assessment and Plan: will look for evidence of colitis. We may consider a trial of cholestyramine GI Consult Note Consult date/time: 06/24/21 08:53 HPI: Keyla Arreaga is a 65 year old female Who is referred for colon cancer screening. Her grandfather had colon cancer. Also, her brother has colon cancer in the last few years. She has had polyps in the past herself. She has not had a screening examination since 2008. She has had loose stools were alternating loose and hard stools for many years. Her gallbladder was removed about 40 years ago. She is diabetic but not currently on metformin Review of Systems Review of Systems: All systems reviewed & are unremarkable except as noted in HPI and below PMFSH Past Medical History Medical History Abdominal aortic aneurysm (AAA) without rupture Arthritis Edmonds's palsy CAD in [place] artery Cholecystitis, acute COPD (chronic obstructive pulmonary disease) Coronary artery disease Diverticulitis Dyslipidemia Fatty liver disease, nonalcoholic Fibromyalgia GERD (gastroesophageal reflux disease) Hemorrhoids History of chemotherapy Irritable bowel syndrome Kidney stones Mitral valve prolapse Obstructive sleep apnea Osteoporosis Pancreatitis Peripheral neuropathy Rectal polyp Rheumatoid arthritis Sleep apnea Tobacco abuse Ulcer Vitamin D deficiency Surgical History Surgical History Cataracts, bilateral H/O cardiac catheterization with 4 cardiac stents History of cholecystectomy History of coronary artery stent placement 01/2018 and 04/2016 History of incisional hernia repair Family History Family History Father Family history of emphysema Other Cerebrovascular accident Diabetes mellitus Family history of cardiovascular disease Family history of coronary artery disease Family history of heart disease in male family member before age 55 Family history of lupus erythematosus Family history of osteoarthritis Family history of rheumatoid arthritis Family history of tuberculosis Hypertension Social History Social History Social History: started age 16, up at most 3 ppd; quit totally 2 years ago in Apr; restarted after of a niece and 2 brothers, now smokes less about half pack/day. 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
[2021-06-24 09:53] VITALS: BP 94/53; PULSE 77; RESP 20; O2SAT 99
[2021-06-24 10:03] VITALS: BP 112/66; PULSE 78; RESP 22; O2SAT 98
[2021-06-24 10:13] VITALS: BP 122/72; PULSE 69; RESP 22; O2SAT 98
== END 2021-06-24 10:22 | disposition home or self-care (01) ==
PROVIDERS: PCP Family Medicine; Visit Provider Internal Medicine Gastroenterology
PROC: 0DJD8ZZ Inspection of Lower Intestinal Tract, Via Natural or Artificial Opening Endoscopic (ICD-10-PCS; CPT 45378; principal; 2021-06-24 09:30)
DX: Z12.11 Encounter for screening for malignant neoplasm of colon (principal); K57.30 Diverticulosis of large intestine without perforation or abscess without bleeding; R19.4 Change in bowel habit; Z80.0 Family history of malignant neoplasm of digestive organs; I71.4 Abdominal aortic aneurysm, without rupture; I25.10 Atherosclerotic heart disease of native coronary artery without angina pectoris; J44.9 Chronic obstructive pulmonary disease, unspecified; E78.5 Hyperlipidemia, unspecified; K75.81 Nonalcoholic steatohepatitis (NASH); M79.7 Fibromyalgia; K21.9 Gastro-esophageal reflux disease without esophagitis; I34.1 Nonrheumatic mitral (valve) prolapse; G47.33 Obstructive sleep apnea (adult) (pediatric); M81.0 Age-related osteoporosis without current pathological fracture; G62.9 Polyneuropathy, unspecified; M06.9 Rheumatoid arthritis, unspecified; E55.9 Vitamin D deficiency, unspecified; Z95.5 Presence of coronary angioplasty implant and graft; F17.210 Nicotine dependence, cigarettes, uncomplicated; Z79.82 Long term (current) use of aspirin; Z79.51 Long term (current) use of inhaled steroids; Z79.02 Long term (current) use of antithrombotics/antiplatelets; Z79.84 Long term (current) use of oral hypoglycemic drugs; Z79.4 Long term (current) use of insulin; E66.9 Obesity, unspecified; Z68.32 Body mass index [BMI] 32.0-32.9, adult
CPT/HCPCS: G0105; 82948; J2704; J7120

== ENCOUNTER 2021-10-13 07:51 | Outpatient (CLI) | payer OTHER, SELFPAY ==
[2021-10-13 08:00] VITALS: PULSE 80; O2SAT 95
[2021-10-13 08:05] VITALS: PULSE 92; O2SAT 86
[2021-10-13 08:10] VITALS: PULSE 94; O2SAT 88
[2021-10-13 08:15] VITALS: PULSE 96; O2SAT 90
[2021-10-13 08:25] VITALS: PULSE 81; O2SAT 95
--- NOTE | 2021-10-13 09:03 | HOMEO2EVAL ---
Evaluation was performed at [facility] Home Oxygen Evaluation RC: Home Oxygen (O2) Evaluation Start: 10/13/21 08:59 Freq: Status: Active Protocol: RPE Activity Type Activity Date Activity User E-sign Co-sign Detail Recorded Client Recorded Date Recorded By Document 10/13/21 08:00 [email or web address] [id number] 10/13/21 09:03 DJO Document 10/13/21 08:05 [email or web address] [email or web address] 10/13/21 09:03 DJO Document 10/13/21 08:10 [email or web address] [email or web address] 10/13/21 09:03 DJO Document 10/13/21 08:15 [email or web address] [email or web address] 10/13/21 09:03 DJO Document 10/13/21 08:25 [email or web address] [email or web address] 10/13/21 09:03 DJO 10/13/21 10/13/21 10/13/21 08:00 08:05 08:10 Home O2 Evaluation Test Phase Resting Exercise Exercise Oxygen Delivery Room Air Room Air Nasal Cannula Oxygen Flow Rate (L/min) 1 Pulse Oximetry (90-100 %) 95 86 L 88 L Pulse Rate (60-100 beats/min) 80 92 94 Activity Tolerance Rating of Perceived Dyspnea (PD) Ambulation Distance (feet) Ambulation Distance (meters) Treatment Charges O2 Evaluation - Inpatient 10/13/21 10/13/21 08:15 08:25 Home O2 Evaluation Test Phase Exercise Resting Oxygen Delivery Nasal Cannula Room Air Oxygen Flow Rate (L/min) 2 Pulse Oximetry (90-100 %) 90 95 Pulse Rate (60-100 beats/min) 96 81 Activity Tolerance Good Rating of Perceived Dyspnea (PD) +3 Moderate Difficulty, But Can Continue Ambulation Distance (feet) 750 Ambulation Distance (meters) 228.58 Treatment Charges
== END 2021-10-13 07:52 | disposition home or self-care (01) ==
LOC: ANHPFT 07:52
PROVIDERS: PCP Family Medicine; Visit Provider Physician Assistant
DX: J44.9 Chronic obstructive pulmonary disease, unspecified (principal); R09.02 Hypoxemia
CPT/HCPCS: 94618

== ENCOUNTER 2021-10-22 07:35 | Outpatient (CLI) | payer OTHER, SELFPAY ==
--- NOTE | ~2021-10-22 | MR_ITS ---
EXAMINATION: MR MRCP wo/w con/w 3D wo ind DATE: 10/22/2021 09:16 INDICATION: Pancreatic cyst TECHNIQUE: Magnetic resonance imaging (MRI) of the abdomen was performed without and with intravenous contrast. Sequences included coronal T2-weighted SS-FSE ARC, coronal T2-weighted FS SS-FSE, coronal T2-weighted 2D FS FIESTA, Water:Coronal LAVA-Flex, sagittal T2-weighted SS-FSE ARC, axial SSFSE ARC, axial 3D DualEcho, axial DWI B=600, axial T1-weighted LAVA, FAT:Coronal LAVA-Flex, and coronal in and opposed phase LAVA-Flex. Thick-slab T2-weighted FRFSE-XL images were obtained for magnetic resonance cholangiopancreatography (MRCP). Maximum intensity projection 3-D reconstructions of the volumetric data were created by the technologist. Postcontrast sequences included a time course of axial T1-weig hted LAVA, FAT:Coronal LAVA-Flex, coronal in and opposed phase LAVA-Flex, and Water:Coronal LAVA-Flex . COMPARISON: 09/30/2020, 02/12/2020, 02/16/2016 CONTRAST: Multihance, 17 cc FINDINGS: ABDOMEN MRI: There are adjacent cystic lesions of the pancreas which measure 6 mm and 4 mm, previousl y 7 mm and 5 mm, which connect to the main pancreatic duct. No new cystic lesion of the pancreas is i dentified. There is loss of hepatic parenchymal signal on opposed phase imaging, consistent with hepa tic steatosis. The gallbladder is surgically absent. The spleen and adrenal glands are normal. The ri ght kidney is unremarkable. There is mild atrophy of the left kidney. No pathologically enlarged abdo monserrat lymph nodes are identified. There are no dilated loops of bowel. There is a 3.9 cm fusiform inf rarenal abdominal aortic aneurysm. ABDOMEN MRCP: There is no intrahepatic or extrahepatic biliary dilatation. The pancreatic duct is nor mal in course and caliber. IMPRESSION: 1. Cystic lesions in the body of the pancreas, with communication to the main pancreatic duct, stable to slightly decreased in size. Follow-up abdominal MRI without and with contrast in one year is sylvia mmended. 2. 3.9 cm fusiform infrarenal abdominal aortic aneurysm. Reviewed, dictated and finalized at location F. IMPRESSION: 1. Cystic lesions in the body of the pancreas, with communication to the main p ancreatic duct, stable to slightly decreased in size. Follow-up abdominal MRI w ithout and with contrast in one year is recommended. 2. 3.9 cm fusiform infrarenal abdominal aortic aneurysm.
[2021-10-22 08:21] LABS: Estimated Glomerular Filt Rate > 60
== END 2021-10-22 07:36 | disposition home or self-care (01) ==
PROVIDERS: PCP Family Medicine
DX: K86.2 Cyst of pancreas (principal); I71.4 Abdominal aortic aneurysm, without rupture
CPT/HCPCS: 74183; 76376; A9577

== ENCOUNTER 2022-02-25 11:34 | Emergency (ER) | payer OTHER, SELFPAY ==
--- NOTE | ~2022-02-25 | XR_ITS ---
XR shoulder LT min 2V 02/25/2022 12:33 INDICATION: Left shoulder pain PROCEDURE: 4 views left shoulder COMPARISON: 12/04/2014 FINDINGS: Fracture, dislocation or subluxation is not identified. The soft tissues appear within norm al limits. No foreign bodies are identified. IMPRESSION: 1: NO ACUTE BONE OR JOINT ABNORMALITY IDENTIFIED. Reviewed, dictated and finalized at location A.
[2022-02-25 11:43] VITALS: BP 126/76; PULSE 86; RESP 16; TEMP 36.2; O2SAT 99
--- NOTE | 2022-02-25 12:14 | ED.EXTPRO ---
HPI - Extremity Problem General Chief complaint: Extremity Problem,Nontraumatic Stated complaint: left Shoulder pain Time Seen by Provider: 02/25/22 12:14 Source: patient, RN notes reviewed and old records reviewed Mode of arrival: ambulatory Limitations: no limitations History of Present Illness HPI Narrative: [age] year presents to [facility] of left shoulder pain since Monday. Has decreased range of motion. History of arthritis. Patient states that she was pushing herself to an upward position in bed when she felt a pop. No bruising or swelling noted, decreased range of motion secondary to pain. Full range of motion of the elbow, wrist. Positive radial pulse. Reports that she has been taking Tylenol Related Data Home Medications Medication Instructions Recorded Confirmed atorvastatin 80 mg tablet 80 mg PO DAILY 03/07/19 02/25/22 carvedilol 3.125 mg tablet 3.125 mg PO BID 03/07/19 02/25/22 lisinopril 5 mg tablet 5 mg PO DAILY 03/07/19 02/25/22 tofacitinib 11 mg tablet,extended 11 mg PO DAILY 07/11/19 02/25/22 release 24 hr (Xeljanz XR) aspirin 81 mg tablet,delayed 81 mg PO DAILY 10/29/19 02/25/22 release (Adult Low Dose Aspirin) ergocalciferol (vitamin D2) 1,250 1,250 mcg PO WEEKLY 02/18/20 02/25/22 mcg (50,000 unit) capsule clopidogrel 75 mg tablet 75 mg PO DAILY 05/20/21 02/25/22 isosorbide mononitrate 60 mg 60 mg PO DAILY 05/20/21 02/25/22 tablet,extended release 24 hr pregabalin 50 mg capsule 100 mg PO HS 05/20/21 02/25/22 insulin glargine 100 unit/mL (3 50 unit subcut .COMPLEX 11/02/21 02/25/22 mL) subcutaneous pen (Lantus Solostar U-100 Insulin) Allergies Allergy/AdvReac Type Severity Reaction Status Date / Time canagliflozin Allergy Severe PANCREATITI Verified 02/25/22 11:43 S meperidine Allergy Severe TONGUE Verified 02/25/22 11:43 SWELLING/HIVES methotrexate Allergy Severe PANCREATITI Verified 02/25/22 11:43 S metformin AdvReac Diarrhea Verified 02/25/22 11:43 Review of Systems Review of Systems: All systems reviewed & are unremarkable except as noted in HPI and below Constitutional: Constitutional: Reports no additional constitutional complaints, Denies chills and Denies fever(s) Eyes: Eyes: Reports no additional eye complaints ENT: Reports system reviewed and no additional complaints, except as documented Cardiovascular: Cardiovascular: Reports no additional cardiovascular complaints Respiratory: Respiratory: Reports no additional respiratory complaints Gastrointestinal: Gastrointestinal: Reports no additional gastrointestinal complaints Musculoskeletal: Musculoskeletal: Reports as per HPI and Reports arthralgias ( left shoulder anterior) Integumentary/Breasts: Skin/Breast: Reports system reviewed and no additional complaints, except as docu Neurologic: Reports system reviewed and no additional complaints, except as documented Psychiatric: Psychiatric: Reports no additional psychiatric complaints Allergic/Immunologic: Allergic/Immunologic: Reports no additional allergic/immunologic complaints COUNT INCLUDES THE [facility] Past Medical History Medical History Abdominal aortic aneurysm (AAA) without rupture Arthritis Edmonds's palsy CAD in [place] artery Cholecystitis, acute COPD (chronic obstructive pulmonary disease) Coronary artery disease Diverticulitis Dyslipidemia Fatty liver disease, nonalcoholic Fibromyalgia GERD (gastroesophageal reflux disease) Hemorrhoids History of chemotherapy Irritable bowel syndrome Kidney stones Mitral valve prolapse Obstructive sleep apnea Osteoporosis Pancreatitis Peripheral neuropathy Rectal polyp Rheumatoid arthritis Sleep apnea Ulcer Vitamin D deficiency Surgical History Surgical History Cataracts, bilateral H/O cardiac catheterization with 4 cardiac stents History of cholecystectomy History of coronary artery kylee
== END 2022-02-25 12:55 | disposition home or self-care (01) ==
PROVIDERS: Emergency Provider Nurse Practitioner; PCP Family Medicine
DX: M25.512 Pain in left shoulder (principal); F17.210 Nicotine dependence, cigarettes, uncomplicated; I25.10 Atherosclerotic heart disease of native coronary artery without angina pectoris; J44.9 Chronic obstructive pulmonary disease, unspecified; E78.5 Hyperlipidemia, unspecified; K76.0 Fatty (change of) liver, not elsewhere classified; K21.9 Gastro-esophageal reflux disease without esophagitis; I34.1 Nonrheumatic mitral (valve) prolapse; G47.33 Obstructive sleep apnea (adult) (pediatric); M81.0 Age-related osteoporosis without current pathological fracture; M06.9 Rheumatoid arthritis, unspecified; G62.9 Polyneuropathy, unspecified; Z95.5 Presence of coronary angioplasty implant and graft; Z79.82 Long term (current) use of aspirin
CPT/HCPCS: 73030; 99213; A4565; G0463

== ENCOUNTER 2022-05-10 11:18 | Outpatient (CLI) | payer MEDICARE, SELFPAY ==
--- NOTE | ~2022-05-10 | CT_ITS ---
EXAMINATION:CT lung screening DATE: 05/10/2022 11:38 INDICATION: Tobacco use. Current smoker with 51 pack year history. TECHNIQUE: Computed tomography (CT) of the chest was performed without intravenous contrast. Automate d exposure control and iterative reconstruction technique were employed. The dose-length product (DLP ) was 154.20 mGy-cm. COMPARISON: Chest CT 05/06/2021 FINDINGS: There is stable mild chronic scarring at the lung apices. There is mild emphysema. Again se en is a 4 mm nodule in right upper lobe. There is chronic peripheral septal thickening in the inferio r lungs. No pleural effusion. The heart size is normal. There are coronary artery calcifications. No pericardial effusion. There is severe thoracic spondylosis. IMPRESSION: 1. Lung-RADS category 2: Benign appearance or behavior. Continue annual screening with noncontrast lo w-dose chest CT in 12 months. Reviewed, dictated and finalized at location A. 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 Lung-RADS category 2: Benign appearance or behavior. Continue annual screeni ng with noncontrast low-dose chest CT in 12 months.
== END 2022-05-10 11:19 | disposition home or self-care (01) ==
PROVIDERS: PCP Family Medicine; Visit Provider Nurse Practitioner Family
DX: Z12.2 Encounter for screening for malignant neoplasm of respiratory organs (principal); F17.210 Nicotine dependence, cigarettes, uncomplicated
CPT/HCPCS: 71271

== ENCOUNTER 2022-10-22 17:00 | Emergency (ER) | payer MEDICARE, SELFPAY ==
--- NOTE | ~2022-10-22 | CT_ITS ---
EXAMINATION: CT abdomen pelvis w con DATE: 10/22/2022 20:15 INDICATION: Pancreatitis. Epigastric tenderness. TECHNIQUE: Computed tomography (CT) of the abdomen and pelvis was performed with 100 mL Omnipaque-350 intravenous contrast. Automated exposure control and iterative reconstruction technique were employe d. The dose-length product was 815.00 mGy-cm. COMPARISON: CT dated 08/03/2018 and MRI dated 10/22/2021 FINDINGS: Mild atelectasis and small pneumatocele at the right lung base. Heart size is normal. No pericardial or pleural effusion. Small sliding-type hiatal hernia. Gallbladder is again not visualized consistent with prior cholecystectomy. Liver, spleen, bilateral adrenal glands and right kidney are normal. Aga in seen are mildly dilated pancreatic side branches communicating with the borderline dilated main pa ncreatic duct at the body the pancreas which likely represents sequela chronic pancreatitis. Couple s mall regions of cortical scarring at the left kidney. There is marked descending and sigmoid colon di verticulosis without inflammatory change to suggest diverticulitis. No dilated bowel to suggest obstr uction. The appendix is not visualized. No pericecal inflammatory change to suggest acute appendiciti s. Stable appearance of postoperative change of prior umbilical/ventral hernia repair. Bladder, uteru s and bilateral adnexa are unremarkable. No free intraperitoneal gas or fluid. No pathologically enla rged abdominal or pelvic lymphadenopathy. Fusiform infrarenal abdominal aortic aneurysm which measure s up to 4.1 x 3.4 cm. No free intraperitoneal gas or fluid. No pathologically enlarged abdominal or p elvic lymphadenopathy. Mild lumbar and lower thoracic spondylosis. IMPRESSION: 1. No acute intra-abdominal/pelvic process. 2. Small sliding-type hiatal hernia. 3. Extensive diverticulosis. 4. 4.1 x 3.4 cm fusiform infrarenal abdominal aortic aneurysm. Reviewed, dictated and finalized at location A.
[2022-10-22 17:14] VITALS: BP 152/89; PULSE 75; RESP 17; TEMP 36.6; O2SAT 98
[2022-10-22 17:35] LABS: Basophils Percent Auto 0.3 % (0.2-1.2); Eosinophils Absolute Auto 0.1 K/mm3 (0-0.3); Eosinophils Percent Auto 1.2 % (0-4.4); Hematocrit 43.5 % (37.0-47.0); Immature Granulocyte Absolute 0.01 K/mm3 (0.00-0.031); Immature Granulocyte Percent A 0.1 % (0-0.5); Lymphocytes Absolute Auto 1.86 K/mm3 (0.9-3.2); Lymphocytes Percent Auto 27.6 % (18.3-44.2); Mean Corpuscular HGB Conc 32.2 g/dl (32-36); Mean Corpuscular Hemoglobin 29.9 pg (26-34); Mean Corpuscular Volume 92.8 fl (80-100); Mean Platelet Volume 9.9 fl (7.4-10.4); Monocytes Absolute Auto 0.4 K/mm3 (0.1-0.6); Monocytes Percent Auto 5.2 % (2.6-8.5); Neutrophils Absolute Auto 4.4 K/mm3 (1.3-6.7); Neutrophils Percent Auto 65.6 % (45.5-73.1); Platelet Count Result 204 k/mm3 (150-375); Red Blood Count 4.69 M/mm3 (4.2-5.4); Red Cell Distribution Width 14.9 % (11.5-14.5); White Blood Count 6.7 K/mm3 (4.5-10.0)
[2022-10-22 17:44] LABS: Alanine Aminotransferase 23 U/L (6-35); Albumin Level 4.3 g/dL (3.5-5.1); Alkaline Phosphatase 79 U/L (38-126); Anion Gap 4 mmol/L (8-16); Aspartate Amino Transferase 28 U/L (14-36); Bilirubin,Total 0.4 mg/dL (0.2-1.3); Blood Urea Nitrogen 12 mg/dL (7-17); Calcium 9.3 mg/dL (8.4-10.2); Carbon Dioxide 31 mmol/L (22-30); Chloride 106 mmol/L (98-107); Estimated Glomerular Filt Rate > 60; Glucose 139 mg/dL (65-110); Lipase 645 U/L (23-300); Potassium 4.1 mmol/L (3.4-5.0); Sodium 141 mmol/L (137-145)
[2022-10-22 17:52] LABS: Appearance Urine Clear (Clear); Bilirubin Urine Negative (Negative); Blood Urine Negative (Negative); Color Urine Yellow (Yellow); Glucose Urine UA Negative (Negative); Ketones Urine Negative (Negative); Leukocyte Esterase Ur Negative LEU/UL (Negative); Nitrate Urine Negative (Negative); Protein Urine Negative (Negative); Specific Grav Ur 1.006 (1.001-1.035); Urobilinogen Urine 0.2 mg/dL (<2.0); pH Urine 6.5 (5.0-9.0)
[2022-10-22 17:58] LABS: Add Urine Microscopic? NO
[2022-10-22 18:43] VITALS: BP 162/85; PULSE 76; RESP 18; O2SAT 96
--- NOTE | 2022-10-22 19:33 | ED.ABDPAIN ---
HPI - Abdominal Pain General Chief Complaint: Abdominal Pain Stated Complaint: i think I have pancreatitis .Hx with RUQ abd pain Time Seen by Provider: 10/22/22 18:49 History of Present Illness HPI narrative: Patient is a 66-year-old female with a history of pancreatitis, COPD, diabetes presenting with abdominal pain. Patient states that for the last 2 to 3 days she has had epigastric and left upper quadrant pain that radiates into her back that feels exactly like her prior episodes of pancreatitis. She denies any nausea or vomiting. States that she is still able to eat and drink though she cannot really eat much. Denies fevers, headache, chest pain, shortness of breath, cough, dysuria, leg swelling. States that she did have an episode of mild diarrhea earlier. Related Data Home Medications Medication Instructions Recorded Confirmed atorvastatin 80 mg tablet 80 mg PO DAILY 03/07/19 05/09/22 carvedilol 3.125 mg tablet 3.125 mg PO BID 03/07/19 05/09/22 lisinopril 5 mg tablet 5 mg PO DAILY 03/07/19 05/09/22 tofacitinib 11 mg tablet,extended 11 mg PO DAILY 07/11/19 05/09/22 release 24 hr (Xeljanz XR) aspirin 81 mg tablet,delayed 81 mg PO DAILY 10/29/19 05/09/22 release (Adult Low Dose Aspirin) clopidogrel 75 mg tablet 75 mg PO DAILY 05/20/21 05/09/22 isosorbide mononitrate 60 mg 60 mg PO DAILY 05/20/21 05/09/22 tablet,extended release 24 hr pregabalin 50 mg capsule 100 mg PO HS 05/20/21 05/09/22 insulin glargine 100 unit/mL (3 50 unit subcut .COMPLEX 11/02/21 05/09/22 mL) subcutaneous pen (Lantus Solostar U-100 Insulin) Allergies Allergy/AdvReac Type Severity Reaction Status Date / Time canagliflozin Allergy Severe PANCREATITI Verified 10/22/22 18:44 S meperidine Allergy Severe TONGUE Verified 10/22/22 18:44 SWELLING/HIVES methotrexate Allergy Severe PANCREATITI Verified 10/22/22 18:44 S metformin AdvReac Diarrhea Verified 10/22/22 18:44 Review of Systems Review of Systems: All systems reviewed & are unremarkable except as noted in HPI and below PMFSH Past Medical History Medical History Abdominal aortic aneurysm (AAA) without rupture Angina at rest Arthritis Edmonds's palsy CAD in [place] artery Cholecystitis, acute COPD (chronic obstructive pulmonary disease) Coronary artery disease Diverticulitis Dyslipidemia Fatty liver disease, nonalcoholic Fibromyalgia GERD (gastroesophageal reflux disease) Hemorrhoids History of chemotherapy Irritable bowel syndrome Kidney stones Mitral valve prolapse Obstructive sleep apnea Osteoporosis Pancreatitis Peripheral neuropathy Rectal polyp Rheumatoid arthritis Skin cancer Sleep apnea Ulcer Surgical History Surgical History Cataracts, bilateral H/O cardiac catheterization with 4 cardiac stents History of cholecystectomy History of coronary artery stent placement 01/2018 and 04/2016 History of incisional hernia repair Family History Family History Father Family history of emphysema Other Cerebrovascular accident Diabetes mellitus Family history of cardiovascular disease Family history of coronary artery disease Family history of heart disease in male family member before age 55 Family history of lupus erythematosus Family history of osteoarthritis Family history of rheumatoid arthritis Family history of tuberculosis Hypertension Social History Social History Social History: started age 16, up at most 3 ppd; quit totally 2 years ago in Apr; restarted after of a niece and 2 brothers, now smokes less about half pack/day. Smoking packs per day: 1 Smoking cigarettes per day: 20.0 Years smoked: 51 Smoking pack-years: 51.00 Smoking status: Current every day smoker Tobacco type: cigarette
[2022-10-22] MEDS: HYDROmorphone HCL INJ (*CRX) 1 MG/ML SYR 0.5 MG IV PUSH (19:45)
[2022-10-22] MEDS: SODIUM CHLORIDE 0.9% IV 1,000 ML 999 ML IV CONT (19:46)
[2022-10-22] MEDS: ONDANSETRON HCL ODT 4 MG TABLET PO (21:31)
[2022-10-22] MEDS: HYDROcodone/acetaminophen (*CRX) 5-325 MG TABLET 1 TAB PO (21:31)
== END 2022-10-22 21:33 | disposition home or self-care (01) ==
PROVIDERS: Emergency Provider Emergency Medicine; PCP Family Medicine
DX: K86.1 Other chronic pancreatitis (principal); J44.9 Chronic obstructive pulmonary disease, unspecified; E11.42 Type 2 diabetes mellitus with diabetic polyneuropathy; I25.10 Atherosclerotic heart disease of native coronary artery without angina pectoris; I34.1 Nonrheumatic mitral (valve) prolapse; E78.5 Hyperlipidemia, unspecified; K76.0 Fatty (change of) liver, not elsewhere classified; G47.33 Obstructive sleep apnea (adult) (pediatric); M06.9 Rheumatoid arthritis, unspecified; M79.7 Fibromyalgia; M81.0 Age-related osteoporosis without current pathological fracture; M19.90 Unspecified osteoarthritis, unspecified site; G47.30 Sleep apnea, unspecified; F17.210 Nicotine dependence, cigarettes, uncomplicated; Z95.5 Presence of coronary angioplasty implant and graft; Z85.828 Personal history of other malignant neoplasm of skin; Z92.21 Personal history of antineoplastic chemotherapy; Z98.42 Cataract extraction status, left eye; Z98.41 Cataract extraction status, right eye; Z90.49 Acquired absence of other specified parts of digestive tract; Z79.4 Long term (current) use of insulin; Z79.82 Long term (current) use of aspirin; I71.43 Infrarenal abdominal aortic aneurysm, without rupture; K57.90 Diverticulosis of intestine, part unspecified, without perforation or abscess without bleeding; K44.9 Diaphragmatic hernia without obstruction or gangrene
CPT/HCPCS: 36415; 74177; 80053; 81003; 83690; 85025; 96361; 96374; 99284; A9270; J1170; J7030; Q9967

== ENCOUNTER 2022-11-02 11:19 | Outpatient (CLI) | payer MEDICARE, SELFPAY ==
[2022-11-02 19:14] LABS: Appearance Urine Clear (Clear); Bacteria Urine None Seen /hpf; Bilirubin Urine Negative (Negative); Blood Urine Negative (Negative); Color Urine Yellow (Yellow); Glucose Urine UA Negative (Negative); Ketones Urine Negative (Negative); Leukocyte Esterase Ur Trace LEU/UL (Negative); Nitrate Urine Negative (Negative); Non Pathogenic Casts 0-2; Protein Urine Negative (Negative); RBC Urine 0-2 /hpf (0-2); Specific Grav Ur 1.004 (1.001-1.035); Squamous Epithelial Cell Urine Occasional /hpf (Few); Urobilinogen Urine 0.2 mg/dL (<2.0); WBC Urine 0-5 /hpf; pH Urine 5.5 (5.0-9.0)
[2022-11-02 19:29] LABS: Add Urine Microscopic? YES
== END 2022-11-02 11:20 | disposition home or self-care (01) ==
PROVIDERS: PCP Nurse Practitioner Adult Health; Visit Provider Internal Medicine
DX: R30.0 Dysuria (principal)
CPT/HCPCS: 81001

== ENCOUNTER 2022-11-03 07:21 | Outpatient (CLI) | payer MEDICARE, SELFPAY ==
--- NOTE | ~2022-11-03 | CT_ITS ---
CT of the Abdomen: Indication: Adrenal adenoma Technique: 2.5 mm axial scans were obtained through the abdomen prior to and following intravenous a dministration of 100 cc of Omnipaque 350. Dose reduction technique was used on this scan by utilizing automated exposure control and iterative reconstruction technique. The dose-length product (DLP) was 1406.27 mGy-cm. COMPARISON: 10/22/2022, 08/03/2018 Findings: Scans through the lung bases are unremarkable. The liver, spleen, pancreas, and kidneys are within normal limits. Gallbladder not visualized. Infrar enal abdominal aortic aneurysm measures 4.1 cm in diameter. Suggestion of subtle bilateral adrenal no dules, which are low-density on precontrast images, consistent with benign adenomas. No lymphadenopat hy. Visualized bowel loops are unremarkable. No ascites. Impression: Probable small bilateral adrenal nodules, consistent with benign adenomas. 4.1 cm infrarenal abdominal aortic aneurysm. Reviewed, dictated and finalized at location . Impression: Probable small bilateral adrenal nodules, consistent with benign adenomas. 4.1 cm infrarenal abdominal aortic aneurysm.
[2022-11-03 08:44] LABS: Hematocrit 43.2 % (37.0-47.0); Hemoglobin 14.1 g/dL (12.0-15.0); Mean Corpuscular HGB Conc 32.6 g/dl (32-36); Mean Corpuscular Hemoglobin 30.5 pg (26-34); Mean Corpuscular Volume 93.5 fl (80-100); Mean Platelet Volume 9.9 fl (7.4-10.4); Platelet Count Result 162 k/mm3 (150-375); Red Blood Count 4.62 M/mm3 (4.2-5.4); Red Cell Distribution Width 14.8 % (11.5-14.5); White Blood Count 6.3 K/mm3 (4.5-10.0)
[2022-11-03 09:03] LABS: Alanine Aminotransferase 21 U/L (6-35); Albumin Level 4.1 g/dL (3.5-5.1); Alkaline Phosphatase 85 U/L (38-126); Anion Gap 3 mmol/L (8-16); Aspartate Amino Transferase 23 U/L (14-36); Bilirubin,Total 0.3 mg/dL (0.2-1.3); Blood Urea Nitrogen 14 mg/dL (7-17); CRP < 0.5 mg/dL (<1.0); Calcium 9.2 mg/dL (8.4-10.2); Carbon Dioxide 30 mmol/L (22-30); Chloride 104 mmol/L (98-107); Estimated Glomerular Filt Rate > 60; Glucose 110 mg/dL (65-110); Potassium 4.3 mmol/L (3.4-5.0); Sodium 137 mmol/L (137-145)
[2022-11-03 09:42] LABS: Hepatitis B Surface Antigen Negative (Negative)
[2022-11-03 09:42] LABS: Rheumatoid Factor > 120.0 IU/ML (<12)
[2022-11-03 09:48] LABS: Erythrocyte Sedimentation Rate 19 mm/hr (0-20)
[2022-11-03 10:00] LABS: Hepatitis B Surface Anti Res Negative; Hepatitis C Virus Antibody Negative (Negative)
[2022-11-06 23:32] LABS: Anti Cyclic Citrullinated Pept >250 Units (<20)
[2022-11-07 12:43] LABS: NIL 0.02 IU/mL; Quantiferon TB Plus, 1T NEGATIVE (NEGATIVE)
== END 2022-11-03 07:22 | disposition home or self-care (01) ==
PROVIDERS: Internal Medicine; PCP Family Medicine; Visit Provider Internal Medicine Endocrinology, Diabetes & Metabolism
DX: M06.041 Rheumatoid arthritis without rheumatoid factor, right hand (principal); M06.042 Rheumatoid arthritis without rheumatoid factor, left hand; M06.9 Rheumatoid arthritis, unspecified; M19.90 Unspecified osteoarthritis, unspecified site; D35.00 Benign neoplasm of unspecified adrenal gland; I71.43 Infrarenal abdominal aortic aneurysm, without rupture
CPT/HCPCS: 36415; 74170; 80053; 85027; 85652; 86140; 86200; 86430; 86480; 86706; 86803; 87340; Q9967

== ENCOUNTER 2022-11-29 14:53 | Outpatient (CLI) | payer MEDICARE, SELFPAY ==
--- NOTE | ~2022-11-29 | MM_ITS ---
EXAMINATION: MM screening jayda BI w rodney HISTORY: Screening mammogram, family history of breast cancer in her mother and sister. TECHNIQUE: Craniocaudal and mediolateral oblique 3-D tomosynthesis images were obtained and synthetic 2-D images were generated. CAD analysis was submitted and interpreted. COMPARISON: 06/21/2021, 02/25/2020, 12/12/2018 BREAST PARENCHYMAL COMPOSITION: There are scattered areas of fibroglandular density. FINDINGS: No suspicious mass, calcification, or architectural distortion are identified in either ines ast to suggest malignancy. There has been no suspicious interval change. IMPRESSION: 1. No mammographic evidence of malignancy. 2. Recommend routine screening mammography in one year. BI-RADS Category 1: Negative Reviewed, dictated and finalized at location A.
--- NOTE | ~2022-11-29 | DEXA_ITS ---
Bone Density Report Name: ALBERTO STEIN Age: 67 Sex: Female Ethnicity: White Date of : 1955 Indication: postmenopausal; screening for osteoporosis; parental hip fracture; asthma or emphysema; rheumatoid arthritis; Referring Provider: JOCE, J LUIS Alatorre Study: Bone densitometry was performed. Exam Date: November 29, 2022 Accession number: [id number] Bone Density: Region BMD T-score Z-score Classification AP Spine(L1-L4) 0.954 -0.8 1.0 Normal Femoral Neck (Left) 0.639 -1.9 -0.3 Osteopenia Total Hip (Left) 0.900 -0.3 0.9 Normal Femoral Neck (Right) 0.616 -2.1 -0.5 Osteopenia Total Hip (Right) 0.925 -0.1 1.1 Normal Total Hip Mean 0.913 -0.2 1.0 Normal World Health Organization criteria for BMD impression classify patients as: Normal (T-score at or above -1.0), Osteopenia (T-score between -1.0 and -2.5), or Osteoporosis (T-score at or below -2.5). 10-year Fracture Risk(1): Major Osteoporotic Fracture 24% Hip Fracture 4.6% Reported Risk Factors: [place] (), Neck BMD=0.616, BMI=32.2, parental fracture, smoking, rheumatoid arthritis (1) FRAX(R) Version 3.08. Fracture probability calculated for an untreated patient. Fracture probability may be lower if the patient has received treatment. Previous Exams: Region Exam Age BMD T-score BMD Change BMD Change Date g/cm2 vs Baseline vs Previous AP Spine (L1-L4) 11/29/2022 67 0.954 -0.8 -0.064 (-6.3%) -0.015 (-1.6%) 02/25/2020 64 0.970 -0.7 -0.049 (-4.8%) -0.049 (-4.8%) 12/15/2014 59 1.018 -0.3 Total Hip(Left) 11/29/2022 67 0.900 -0.3 -0.169 (-15.8% -0.069 (-7.2%) 02/25/2020 64 0.970 0.2 -0.099 (-9.3%) -0.099 (-9.3%) 12/15/2014 59 1.069 1.0 Total Hip(Right) 11/29/2022 67 0.925 -0.1 -0.139 (-13.1% -0.071 (-7.1%) 02/25/2020 64 0.996 0.4 -0.068 (-6.4%) -0.068 (-6.4%) 12/15/2014 59 1.064 1.0 *Denotes significance at 95% confidence level, LSC for AP Spine = 0.022 g/cm2, LSC for Total Hip = 0.027 g/cm2 Clinical Information Provided by Patient: Parent has had a hip fracture Smokes Has rheumatoid arthritis Has the following medical conditions: Asthma or Emphysema Patient maximum height was 63 Menopause Age: 49 No regular weight bearing exercise Does not regularly consume dairy products Drinks caffeinated beverages Onset of menses at age 15 Number of children 2 Impression: The patient has low bone mass, based on t
== END 2022-11-29 14:54 | disposition home or self-care (01) ==
LOC: ANHIMG 14:54
PROVIDERS: PCP Family Medicine; Visit Provider Internal Medicine Endocrinology, Diabetes & Metabolism
DX: Z12.31 Encounter for screening mammogram for malignant neoplasm of breast (principal); Z78.0 Asymptomatic menopausal state; M85.852 Other specified disorders of bone density and structure, left thigh; M85.851 Other specified disorders of bone density and structure, right thigh
CPT/HCPCS: 77063; 77067; 77080

== ENCOUNTER 2022-12-02 12:21 | Emergency (ER) | payer MEDICARE, SELFPAY ==
[2022-12-02 12:27] VITALS: BP 121/64; PULSE 80; RESP 16; TEMP 36.2; O2SAT 100
--- NOTE | 2022-12-02 12:29 | ED.FEMALEGU ---
HPI - Female Genitourinary General Chief complaint: Urogenital-Female Stated complaint: Side Pain Source: patient and RN notes reviewed History of Present Illness HPI Narrative: 67 yo F presents to urgent care with complaints of left side pain since Monday. PT states this pain is constant and continues to get worse; rating her pain 8-10/10 on the pain scale. Pt reports chills the last couple nights. States she always has diarrhea and constipation but nothing new. Denies any N/V. Denies any new chest pain or new SOB. Denies any dysuria or hematuria at home. Reports hx of chronic pancreatitis, diverticulosis, and an abdominal aneurysm. Related Data Home Medications Medication Instructions Recorded Confirmed carvedilol 3.125 mg tablet 3.125 mg PO BID 03/07/19 12/02/22 aspirin 81 mg tablet,delayed 81 mg PO DAILY 10/29/19 12/02/22 release (Adult Low Dose Aspirin) glimepiride 2 mg tablet 2 mg PO QAM 11/24/22 12/02/22 insulin glargine 100 unit/mL (3 50 unit subcut .COMPLEX 11/24/22 12/02/22 mL) subcutaneous pen (Lantus Solostar U-100 Insulin) rosuvastatin 40 mg tablet 40 mg PO DAILY 11/24/22 12/02/22 Allergies Allergy/AdvReac Type Severity Reaction Status Date / Time canagliflozin Allergy Severe PANCREATITI Verified 12/02/22 12:32 S meperidine Allergy Severe TONGUE Verified 12/02/22 12:32 SWELLING/HIVES methotrexate Allergy Severe PANCREATITI Verified 12/02/22 12:32 S metformin AdvReac Diarrhea Verified 12/02/22 12:32 Review of Systems Review of Systems: Pertinent positives and pertinent negatives per HPI. [facility] Past Medical History Medical History Abdominal aortic aneurysm (AAA) without rupture Angina at rest Arthritis Edmonds's palsy CAD in [place] artery Cholecystitis, acute COPD (chronic obstructive pulmonary disease) Coronary artery disease Diverticulitis Dyslipidemia Fatty liver disease, nonalcoholic Fibromyalgia GERD (gastroesophageal reflux disease) Hemorrhoids History of chemotherapy Irritable bowel syndrome Kidney stones Mitral valve prolapse Obstructive sleep apnea Osteoporosis Pancreatitis Peripheral neuropathy Rectal polyp Rheumatoid arthritis Skin cancer Sleep apnea Ulcer Surgical History Surgical History Cataracts, bilateral H/O cardiac catheterization with 4 cardiac stents History of cholecystectomy History of coronary artery stent placement 01/2018 and 04/2016 History of incisional hernia repair Family History Family History Father Family history of emphysema Other Cerebrovascular accident Diabetes mellitus Family history of cardiovascular disease Family history of coronary artery disease Family history of heart disease in male family member before age 55 Family history of lupus erythematosus Family history of osteoarthritis Family history of rheumatoid arthritis Family history of tuberculosis Hypertension Social History Social History (Updated 10/24/22 @ 13:31 by La Pineda MA) Social History: started age 16, up at most 3 ppd; quit totally 2 years ago in Apr; restarted after of a niece and 2 brothers, now smokes less about half pack/day. Smoking packs per day: 1 Smoking cigarettes per day: 20.0 Years smoked: 51 Smoking pack-years: 51.00 Smoking status: Current every day smoker Tobacco type: cigarettes Second hand tobacco smoke exposure: No Additional smoking assessment comments: started age 16, Alcohol intake: never Substance use: never Substance use type: does not use Lack of Transportation: No Lack of Food: Sometimes True Current Housing: I Do Not Have Housing Concerned About Future Housing: No Difficulty Paying Gas/Electric Bills: No Difficulty Paying for Meds: No Currently Unemployed: No Education: High Scho
--- NOTE | 2022-12-02 13:42 | PC.NURSE ---
NO UC ORDERED PER PROVIDER
== END 2022-12-02 12:50 | disposition short-term general hospital (02) ==
PROVIDERS: Emergency Provider Nurse Practitioner Family; PCP Family Medicine
DX: R10.9 Unspecified abdominal pain (principal); M19.90 Unspecified osteoarthritis, unspecified site; I25.110 Atherosclerotic heart disease of native coronary artery with unstable angina pectoris; J44.9 Chronic obstructive pulmonary disease, unspecified; E78.5 Hyperlipidemia, unspecified; K76.0 Fatty (change of) liver, not elsewhere classified; M79.7 Fibromyalgia; K21.9 Gastro-esophageal reflux disease without esophagitis; I34.1 Nonrheumatic mitral (valve) prolapse; M81.0 Age-related osteoporosis without current pathological fracture; G62.9 Polyneuropathy, unspecified; M06.9 Rheumatoid arthritis, unspecified; Z85.828 Personal history of other malignant neoplasm of skin; Z92.21 Personal history of antineoplastic chemotherapy; Z95.5 Presence of coronary angioplasty implant and graft; Z79.82 Long term (current) use of aspirin
CPT/HCPCS: 81003; 99212; G0463

== ENCOUNTER 2022-12-02 13:19 | Emergency (ER) | payer MEDICARE, SELFPAY ==
[2022-12-02] VITALS (20 sets, daily range): BP systolic 94–135; BP diastolic 68–80; PULSE 70–87; RESP 14–26; TEMP 36.2; O2SAT 96–100
--- NOTE | ~2022-12-02 | CT_ITS ---
EXAMINATION: CT abdomen pelvis w con DATE: 12/02/2022 18:00 INDICATION: LUQ pain TECHNIQUE: Computed tomography (CT) of the abdomen and pelvis was performed with 100 mL Omnipaque-350 intravenous contrast. Automated exposure control and iterative reconstruction technique were employe d. The dose-length product was 905.69 mGy-cm. COMPARISON: CT abdomen 11/03/2022; CT abdomen pelvis 10/22/2022; MR MRCP 10/22/2021. FINDINGS: Lower thorax: Minimal bibasilar scar/atelectasis. Scattered air cysts in the right lower lobe. Ko ry artery calcifications. Small hiatal hernia. Liver: Normal. Biliary/Gallbladder: Gallbladder is absent. No bile duct dilation. Pancreas: Stable prominence of the pancreatic duct and sidebranches as well as subcentimeter pancreas cysts. Spleen: Normal. Adrenals:No mass. Kidneys: No suspicious mass or calcification. Bilateral cortical scarring. No hydronephrosis. Mild bi lateral urothelial enhancement in the ureters. GI tract: Moderate distal esophageal and antral wall edema. No small or large bowel dilation. Appendi x not visualized, presumably surgically absent. Moderate diverticulosis. Short segment pericolonic in flammatory change involving the descending colon in the left lateral abdomen. Mesentery/Peritoneum: No ascites, mass, or free air. Retroperitoneum: No mass. Atherosclerotic abdominal aortic and/or arterial calcifications. 4.6 cm fus iform infrarenal abdominal aortic aneurysm. Pelvis: Distended urinary bladder with mild wall thickening and inflammatory change. Soft Tissues: Soft tissues and body wall unremarkable. Bones: No acute osseous finding. IMPRESSION: Moderate esophagitis/gastritis. Pancreatic cysts. Patient is due for a previously recommended one year follow-up abdominal MRI withou t and with contrast. Mild uncomplicated mid descending colon diverticulitis. Possible cystitis and bilateral ascending infection. 4.6 cm infrarenal abdominal aortic aneurysm, recommend CT follow-up in 6 months. Reviewed, dictated and finalized at location K. IMPRESSION: Moderate esophagitis/gastritis. Pancreatic cysts. Patient is due for a previously recommended one year follow-u p abdominal MRI without and with contrast. Mild uncomplicated mid descending colon diverticulitis. Possible cystitis and bilateral ascending infection. 4.6 cm infrarenal abdominal aortic aneurysm, recommend CT follow-up in 6 months .
--- NOTE | ~2022-12-02 | XR_ITS ---
EXAMINATION: XR chest 1V Exam Date/Time: 12/02/2022 18:00 CDT HISTORY: dyspnea- hx of emphysema Comparison: 05/08/2019. RESULT: Lines, tubes, and devices: None. Lungs and pleura: Clear. Cardiomediastinal silhouette: Stable. Other: No acute osseous or upper abdominal finding. IMPRESSION: No acute cardiopulmonary process. Reviewed, dictated and finalized at location K.
[2022-12-02 13:43] LABS: Basophils Percent Auto 0.3 % (0.2-1.2); Eosinophils Absolute Auto 0.1 K/mm3 (0-0.3); Eosinophils Percent Auto 0.9 % (0-4.4); Hematocrit 43.2 % (37.0-47.0); Hemoglobin 13.6 g/dL (12.0-15.0); Immature Granulocyte Absolute 0.02 K/mm3 (0.00-0.031); Immature Granulocyte Percent A 0.2 % (0-0.5); Lymphocytes Percent Auto 23.3 % (18.3-44.2); Mean Corpuscular HGB Conc 31.5 g/dl (32-36); Mean Corpuscular Hemoglobin 29.7 pg (26-34); Mean Corpuscular Volume 94.3 fl (80-100); Mean Platelet Volume 10.1 fl (7.4-10.4); Monocytes Absolute Auto 0.5 K/mm3 (0.1-0.6); Monocytes Percent Auto 5.2 % (2.6-8.5); Neutrophils Percent Auto 70.1 % (45.5-73.1); Platelet Count Result 178 k/mm3 (150-375); Red Blood Count 4.58 M/mm3 (4.2-5.4); Red Cell Distribution Width 15.1 % (11.5-14.5); White Blood Count 8.6 K/mm3 (4.5-10.0)
[2022-12-02 13:56] LABS: Alanine Aminotransferase 27 U/L (6-35); Alkaline Phosphatase 76 U/L (38-126); Anion Gap 2 mmol/L (8-16); Aspartate Amino Transferase 26 U/L (14-36); Bilirubin,Total 0.4 mg/dL (0.2-1.3); Blood Urea Nitrogen 11 mg/dL (7-17); Carbon Dioxide 28 mmol/L (22-30); Chloride 104 mmol/L (98-107); Estimated CRCL calculation 61 ml/min; Estimated Glomerular Filt Rate > 60; Glucose 199 mg/dL (65-110); Potassium 4.1 mmol/L (3.4-5.0); Sodium 134 mmol/L (137-145)
[2022-12-02 15:42] LABS: Appearance Urine Clear (Clear); Bilirubin Urine Negative (Negative); Blood Urine Negative (Negative); Color Urine Yellow (Yellow); Glucose Urine UA 2+ mg/dL (Negative); Ketones Urine Negative (Negative); Leukocyte Esterase Ur Negative LEU/UL (Negative); Nitrate Urine Negative (Negative); Protein Urine Negative (Negative); Specific Grav Ur 1.011 (1.001-1.035); Urobilinogen Urine 0.2 mg/dL (<2.0); pH Urine 5.5 (5.0-9.0)
[2022-12-02 15:44] LABS: Add Urine Microscopic? NO
--- NOTE | 2022-12-02 15:45 | PC.NURSE ---
per pt, took tylenol at 0700, total 1000mg.
--- NOTE | 2022-12-02 16:54 | ECG_ITS ---
Measurements Intervals [place] Rate: 70 P: 59 NE: 165 QRS: 56 QRSD: 84 T: 70 QT: 397 QTc: 431 Interpretive Statements SINUS RHYTHM NORMAL ECG COMPARED TO ECG 05/08/2019 16:29:15 NO SIGNIFICANT CHANGES Electronically Signed On 12-03-2022 12:37:51 CDT by Salinas Murray M.D.
--- NOTE | 2022-12-02 16:57 | ED.ABDPAIN ---
HPI - Abdominal Pain General Chief Complaint: Abdominal Pain <Sherin Darden PA-C - Last Filed: 12/02/22 19:13> Stated Complaint: side pain <Sherin Darden PA-C - Last Filed: 12/02/22 19:13> Time Seen by Provider: 12/02/22 15:52 <Sherin Darden PA-C - Last Filed: 12/02/22 19:13> History of Present Illness HPI narrative: 67-year-old female with a history of COPD, diabetes, dyslipidemia, CAD with stent x4, [place] x2, CANDICE, abdominal aortic aneurysm without rupture and chronic pancreatitis reports for evaluation for left upper quadrant pain x4 days. Patient sent here from urgent care for further evaluation. She reports her pain started 4 days ago and was mild and intermittent, but has slowly progressed to increased pain that is now constant. Patient states that she normally has a right upper quadrant pain when she has pancreatitis flares. She is reporting nausea, no emesis. Last bowel movement today was normal. Patient is also reporting chest pain, shortness of breath and cough that is unchanged from her baseline. She states has been diagnosed with angina and follows with Dr. Ngo cardiology. States she had a stress test done 3 months ago that was normal. She denies fever, vomiting, urinary complaints, diarrhea, lower extremity edema. <Sherin Darden PA-C - Last Filed: 12/02/22 19:13> Related Data Home Medications: Home Medications Medication Instructions Recorded Confirmed carvedilol 3.125 mg tablet 3.125 mg PO BID 03/07/19 12/02/22 aspirin 81 mg tablet,delayed 81 mg PO DAILY 10/29/19 12/02/22 release (Adult Low Dose Aspirin) glimepiride 2 mg tablet 2 mg PO QAM 11/24/22 12/02/22 insulin glargine 100 unit/mL (3 50 unit subcut .COMPLEX 11/24/22 12/02/22 mL) subcutaneous pen (Lantus Solostar U-100 Insulin) rosuvastatin 40 mg tablet 40 mg PO DAILY 11/24/22 12/02/22 <PAULINO George Last Filed: 12/02/22 19:13> Allergies/Adverse Reactions: Allergies Allergy/AdvReac Type Severity Reaction Status Date / Time canagliflozin Allergy Severe PANCREATITI Verified 12/02/22 12:32 S meperidine Allergy Severe TONGUE Verified 12/02/22 12:32 SWELLING/HIVES methotrexate Allergy Severe PANCREATITI Verified 12/02/22 12:32 S metformin AdvReac Diarrhea Verified 12/02/22 12:32 <Sherin Darden PA-C - Last Filed: 12/02/22 19:13> Review of Systems Review of Systems: CONSTITUTIONAL: Denies fever, chills EYES: Denies visual changes, redness, or discharge. ENT: Denies rhinorrhea, congestion, sore throat, or otalgia. CARDIOVASCULAR: HPI RESPIRATORY: See HPI GASTROINTESTINAL: See HPI GENITOURINARY: Denies dysuria or hematuria. SKIN: Denies rash or itching. MUSCULOSKELETAL: Denies back pain, joint pain, or myalgia. NEUROLOGIC: Denies headache, numbness, dizziness, or weakness. PSYCHIATRIC: Denies anxiety or depression. <Sherin Darden PA-C - Last Filed: 12/02/22 19:13> [facility] Past Medical History Medical History: Medical History Abdominal aortic aneurysm (AAA) without rupture Angina at rest Arthritis Edmonds's palsy CAD in [place] artery Cholecystitis, acute COPD (chronic obstructive pulmonary disease) Coronary artery disease Diverticulitis Dyslipidemia Fatty liver disease, nonalcoholic Fibromyalgia GERD (gastroesophageal reflux disease) Hemorrhoids History of chemotherapy Irritable bowel syndrome Kidney stones Mitral valve prolapse Obstructive sleep apnea Osteoporosis Pancreatitis Peripheral neuropathy Rectal polyp Rheumatoid arthritis Skin cancer Sleep apnea Ulcer <Sherin Darden PA-C - Last Filed: 12/02/22 19:13> Surgical History Surgical History: Surgical History Cataracts, bilateral H/O cardiac catheterization with 4 cardiac stents History of cholecystectomy History of coronary artery stent placement 10
[2022-12-02] MEDS: ALBUTEROL SULFATE NEB 2.5 MG/3 ML INH INHALATION (17:11)
[2022-12-02] MEDS: IPRATROPIUM BR 0.02% INH SOLN 0.5 MG/2.5 ML VIAL INHALATION (17:11)
[2022-12-02] MEDS: SODIUM CHLORIDE 0.9% IV 1,000 ML 999 ML IV CONT (17:20)
[2022-12-02] MEDS: MORPHINE SULFATE (*CRX) 4 MG/ML INJ IV PUSH (17:21)
[2022-12-02 17:35] LABS: Lipase 99 U/L (23-300)
[2022-12-02 17:47] LABS: NT Pro B Type Natriuretic Pept 162 pg/mL (19.9-100); Troponin I < 0.012 ng/mL (0.000-0.034)
--- NOTE | 2022-12-02 18:59 | PC.NURSE ---
Pt given soda and sandwich for PO challange and pts request.
[2022-12-02] MEDS: AMOXICILLIN/CLAVULANATE K 875-125 MG TAB 1 TABLET PO (19:17)
== END 2022-12-02 19:33 | disposition home or self-care (01) ==
PROVIDERS: Preventive Medicine Aerospace Medicine; Emergency Provider Physician Assistant; PCP Family Medicine
DX: K57.92 Diverticulitis of intestine, part unspecified, without perforation or abscess without bleeding (principal); R06.02 Shortness of breath; J44.9 Chronic obstructive pulmonary disease, unspecified; E78.5 Hyperlipidemia, unspecified; E11.9 Type 2 diabetes mellitus without complications; I25.10 Atherosclerotic heart disease of native coronary artery without angina pectoris; I25.2 Old myocardial infarction; F17.210 Nicotine dependence, cigarettes, uncomplicated; Z79.82 Long term (current) use of aspirin; Z79.4 Long term (current) use of insulin
CPT/HCPCS: 36415; 71045; 74177; 80053; 81003; 83690; 83880; 84484; 85025; 93005; 94640; 96361; 96374; 99284; A9270; J2270; J7030; Q9967

== ENCOUNTER 2022-12-30 08:24 | Outpatient (CLI) | payer MEDICARE, SELFPAY ==
--- NOTE | ~2022-12-30 | MR_ITS ---
MRI of the abdomen: Clinical indication: Pancreatic cyst. Technique: Coronal SSFSE ARC, WATER:coronal LAVA-FLEX, Coronal 2D FIESTA FatSat, Axial SSFSE BH ARC, Axial 3D DualEcho BH, Axial SSFSE-IR, Axial DWI b=500, Axial 2D FIESTA FatSat, pre and dynamic postco ntrast Axial LAVA ARC, postcontrast Coronal In and Opposed phase LAVA FLEX . Following intravenous ad ministration of 16 cc MultiHance gadolinium, T1-weighted fat-sat imaging was performed in the axial a nd coronal planes. COMPARISON: 10/22/2021 Findings: Gallbladder is absent. The common bile duct is unremarkable. No filling defects are seen wi thin the CBD. No evidence of intrahepatic biliary ductal dilatation. The pancreatic duct is normal in size. There is relative signal drop off in the liver noted phase images relative to in phase images, consis tent with diffuse fatty infiltration. There is stable small cystic lesions in the pancreas, which shaji ear to communicate with the pancreatic ductal system comminuted mildly dilated at the pancreatic neck /body. No suspicious postcontrast enhancement identified. The spleen, adrenals, kidneys appear normal . There is focal aneurysmal dilatation of the distal abdominal aorta to 3.9 cm. Impression: Stable small cystic lesions of the pancreas, with communication with the pancreatic ductal system. Mi nimal dilatation of the pancreatic duct at the neck and body/neck. Overall, there is no significant i nterval change from prior exam. Diffuse fatty infiltration of liver. 3.9 cm distal abdominal aortic aneurysm. Reviewed, dictated and finalized at location . Impression: Stable small cystic lesions of the pancreas, with communication with the pancre atic ductal system. Minimal dilatation of the pancreatic duct at the neck and b venkata/neck. Overall, there is no significant interval change from prior exam. Diffuse fatty infiltration of liver. 3.9 cm distal abdominal aortic aneurysm.
== END 2022-12-30 08:25 | disposition home or self-care (01) ==
LOC: ANHIMG 08:28
PROVIDERS: PCP Family Medicine; Visit Provider Family Medicine
DX: K86.2 Cyst of pancreas (principal); I71.40 Abdominal aortic aneurysm, without rupture, unspecified
CPT/HCPCS: 74183; A9577

== ENCOUNTER 2023-01-09 20:50 | Emergency (ER) | payer MEDICARE, SELFPAY ==
--- NOTE | ~2023-01-09 | CT_ITS ---
Clinical Indication: Shortness of breath CT Scan of the Chest with Contrast: Technique: Contiguous sections were acquired throughout the chest after intravenous administration of 100 cc of Omnipaque 350. Dose reduction technique was used on this scan by utilizing automated expos ure control and iterative reconstruction technique. The dose-length product (DLP) was 521.91 mGy-cm. COMPARISON: 05/10/2022 Findings: There is no evidence of any significant mediastinal, hilar or axillary lymphadenopathy. There is no f illing defect in the pulmonary arterial tree to suggest pulmonary embolus. There is no evidence of ao rtic dissection or aneurysm. There is no evidence of pleural or pericardial effusion. The lungs are clear. No pulmonary nodules or infiltrates are noted. Mild emphysematous change noted. Images through the upper abdomen reveal no abnormalities. Impression: No evidence of pulmonary embolus, aortic dissection, or aortic aneurysm. Clear lungs. Mild emphysematous change. Reviewed, dictated and finalized at [facility]. Impression: No evidence of pulmonary embolus, aortic dissection, or aortic aneurysm. Clear lungs. Mild emphysematous change.
--- NOTE | ~2023-01-09 | XR_ITS ---
EXAMINATION: XR chest 2V DATE: 01/09/2023 23:04 INDICATION: Shortness of breath. TECHNIQUE: Frontal and lateral views of the chest were obtained. COMPARISON: Chest single view 12/02/2022, CT abdomen and pelvis 12/02/2022 FINDINGS: There is no pneumonia, pleural effusion, or pneumothorax. The heart size is normal. IMPRESSION: 1. No acute cardiopulmonary disease. Reviewed, dictated and finalized at location E.
[2023-01-09 20:52] VITALS: BP 156/98; PULSE 87; RESP 24; TEMP 36.4; O2SAT 97
--- NOTE | 2023-01-09 22:37 | ECG_ITS ---
Measurements Intervals [place] Rate: 73 P: 62 MO: 155 QRS: 52 QRSD: 87 T: 70 QT: 371 QTc: 409 Interpretive Statements SINUS RHYTHM BASELINE WANDER- I, AVR, AVL, AVF, V4-V6 NORMAL ECG COMPARED TO ECG 12/02/2022 17:12:32 NO SIGNIFICANT CHANGES Electronically Signed On 01-10-2023 6:28:45 CDT by Abel Leonard D.O.
[2023-01-09 22:39] VITALS: O2SAT 98
[2023-01-09 23:09] LABS: Basophils Percent Auto 0.2 % (0.2-1.2); Eosinophils Percent Auto 0.2 % (0-4.4); Hematocrit 42.2 % (37.0-47.0); Immature Granulocyte Absolute 0.05 K/mm3 (0.00-0.031); Immature Granulocyte Percent A 0.5 % (0-0.5); Lymphocytes Absolute Auto 2.87 K/mm3 (0.9-3.2); Lymphocytes Percent Auto 30.2 % (18.3-44.2); Mean Corpuscular HGB Conc 33.2 g/dl (32-36); Mean Corpuscular Volume 93.4 fl (80-100); Mean Platelet Volume 10.1 fl (7.4-10.4); Monocytes Absolute Auto 0.6 K/mm3 (0.1-0.6); Monocytes Percent Auto 6.7 % (2.6-8.5); Neutrophils Absolute Auto 5.9 K/mm3 (1.3-6.7); Neutrophils Percent Auto 62.2 % (45.5-73.1); Platelet Count Result 234 k/mm3 (150-375); Red Blood Count 4.52 M/mm3 (4.2-5.4); Red Cell Distribution Width 14.7 % (11.5-14.5); White Blood Count 9.5 K/mm3 (4.5-10.0)
--- NOTE | 2023-01-09 23:16 | PC.NURSE ---
report and care given to PRESTON Russo. all questions answered.
[2023-01-09 23:19] VITALS: O2SAT 98
[2023-01-09 23:20] VITALS: PULSE 81; RESP 23; O2SAT 98
[2023-01-09 23:21] LABS: Alanine Aminotransferase 34 U/L (6-35); Albumin Level 4.3 g/dL (3.5-5.1); Alkaline Phosphatase 76 U/L (38-126); Anion Gap 8 mmol/L (8-16); Aspartate Amino Transferase 30 U/L (14-36); Bilirubin,Total 0.4 mg/dL (0.2-1.3); Blood Urea Nitrogen 24 mg/dL (7-17); Calcium 9.4 mg/dL (8.4-10.2); Carbon Dioxide 28 mmol/L (22-30); Chloride 104 mmol/L (98-107); Estimated CRCL calculation 61 ml/min; Estimated Glomerular Filt Rate > 60; Glucose 119 mg/dL (65-110); Potassium 3.8 mmol/L (3.4-5.0); Sodium 140 mmol/L (137-145)
[2023-01-09] MEDS: methylPREDNISolone SOD SUCC 125 MG VIAL IV PUSH (23:35)
[2023-01-09] MEDS: MAGNESIUM SULF 2 GM/WATER 50ML 2 GM/50 ML BAG IVPB (23:36)
[2023-01-10] VITALS: PULSE 69; RESP 21
[2023-01-10] MEDS: ALBUTEROL SULFATE NEB 2.5 MG/3 ML INH 10 MG INHALATION
--- NOTE | 2023-01-10 00:06 | PCRCNOTE ---
pt refused ABG at this time. Doctor is aware
[2023-01-10 00:15] VITALS: BP 152/92; PULSE 68; RESP 18; O2SAT 100
[2023-01-10 00:39] LABS: D Dimer 3.15 ug/mL (<0.48)
[2023-01-10 00:55] LABS: NT Pro B Type Natriuretic Pept 356 pg/mL (19.9-100); Troponin I < 0.012 ng/mL (0.000-0.034)
[2023-01-10 01:08] VITALS: BP 154/88; PULSE 74; RESP 20; O2SAT 97; O2SAT 98
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
--- NOTE | 2023-01-10 02:20 | PC.NURSE ---
Pt able to ambulate to restroom without increase in SOB.
[2023-01-10 02:21] VITALS: BP 161/81; PULSE 69; RESP 17; O2SAT 94
[2023-01-10] MEDS: cefTRIAXone 2 GM/NS 100 ML 2 GM/100 ML BAG IVPB (03:53)
[2023-01-10 03:57] VITALS: BP 119/82; PULSE 92; RESP 21; O2SAT 92; O2SAT 94
== END 2023-01-10 04:44 | disposition home or self-care (01) ==
PROVIDERS: Emergency Provider Emergency Medicine; PCP Family Medicine
DX: J44.0 Chronic obstructive pulmonary disease with (acute) lower respiratory infection (principal); J20.9 Acute bronchitis, unspecified; I34.1 Nonrheumatic mitral (valve) prolapse; I25.10 Atherosclerotic heart disease of native coronary artery without angina pectoris; E78.5 Hyperlipidemia, unspecified; K21.9 Gastro-esophageal reflux disease without esophagitis; K58.9 Irritable bowel syndrome, unspecified; G47.33 Obstructive sleep apnea (adult) (pediatric); G62.9 Polyneuropathy, unspecified; M19.90 Unspecified osteoarthritis, unspecified site; M79.7 Fibromyalgia; M81.0 Age-related osteoporosis without current pathological fracture; M06.9 Rheumatoid arthritis, unspecified; F17.210 Nicotine dependence, cigarettes, uncomplicated; Z95.5 Presence of coronary angioplasty implant and graft; Z92.21 Personal history of antineoplastic chemotherapy; Z85.828 Personal history of other malignant neoplasm of skin; Z87.442 Personal history of urinary calculi; Z98.42 Cataract extraction status, left eye; Z98.41 Cataract extraction status, right eye; Z90.49 Acquired absence of other specified parts of digestive tract; Z79.84 Long term (current) use of oral hypoglycemic drugs; Z79.82 Long term (current) use of aspirin; Z79.4 Long term (current) use of insulin
CPT/HCPCS: 36415; 36600; 71046; 71275; 80053; 82805; 83880; 84145; 84484; 85025; 85380; 93005; 96365; 96367; 96375; 99284; J0696; J2930; J3475; Q9967

== ENCOUNTER 2023-01-26 13:10 | Outpatient (CLI) | payer MEDICARE, SELFPAY ==
[2023-01-26 14:15] VITALS: PULSE 80; O2SAT 97
[2023-01-26 14:30] VITALS: PULSE 67; O2SAT 96
[2023-01-26 14:32] VITALS: PULSE 89; O2SAT 87
[2023-01-26 14:34] VITALS: O2SAT 87
[2023-01-26 14:35] VITALS: O2SAT 92
--- NOTE | 2023-01-26 15:04 | HOMEO2EVAL ---
Evaluation was performed at [facility] Home Oxygen Evaluation RC: Home Oxygen (O2) Evaluation Start: 01/26/23 15:02 Freq: Status: Active Protocol: RPE Activity Type Activity Date Activity User E-sign Co-sign Detail Recorded Client Recorded Date Recorded By Document 01/26/23 14:15 LORIE [email or web address] 01/26/23 15:04 LORIE Document 01/26/23 14:30 LORIE [email or web address] 01/26/23 15:04 LORIE Document 01/26/23 14:32 LORIE [email or web address] 01/26/23 15:04 LORIE Document 01/26/23 14:34 LORIE [email or web address] 01/26/23 15:04 LORIE Document 01/26/23 14:35 LORIE [email or web address] 01/26/23 15:04 LORIE 01/26/23 01/26/23 01/26/23 14:15 14:30 14:32 Home O2 Evaluation [Oxygen] -Test Phase Resting Resting Exercise -Oxygen Delivery Room Air Room Air Room Air -Oxygen Flow Rate (L/min) [Pulse Oximetry] -Pulse Oximetry (90-100 %) 97 96 87 L [Pulse Rate] -Pulse Rate (60-100 beats/min) 80 67 89 [Comments] -Home Oxygen Evaluation Comments [Charges] -Treatment Charges O2 Evaluation - Outpatient 01/26/23 01/26/23 14:34 14:35 Home O2 Evaluation [Oxygen] -Test Phase Exercise Exercise -Oxygen Delivery Nasal Cannula Nasal Cannula -Oxygen Flow Rate (L/min) 1 2 [Pulse Oximetry] -Pulse Oximetry (90-100 %) 87 L 92 [Pulse Rate] -Pulse Rate (60-100 beats/min) [Comments] -Home Oxygen Evaluation Comments 2 L WITH ACTIVITY [Charges] -Treatment Charges
--- NOTE | 2023-01-27 09:03 | P.PCNPFT_ITS ---
PFT Procedure Performed PFT Procedure Performed Spirometry with Pre/Post Bronchodilator Plethysmography (Lung Vol) Diffusing Cap (DLCO) Flow Vol Loop PFT Interpretation Lung volumes were measured with the body plethysmography method. Lung volumes are unremarkable. Spirometry showed diminished expiratory flow rates and a normal FEV1 to FVC ratio 73%. No post bronchodilator study carried out. Lung diffusion capacity is severely reduced at 45% predicted. The restrictive pattern on spirometry in the face of a normal total lung capacity is suggestive of a nonspecific pattern. Flow-volume loop is unremarkable. In comparison to previous study done in 2020, the forced vital capacity is now lower by shaji roximately 0.5 L and FEV1 is also lower by approximately 0.2 L. Impression: Nonspecific pattern. Severely reduced lung diffusion capacity
== END 2023-01-26 13:11 | disposition home or self-care (01) ==
LOC: ANHPFT 13:12
PROVIDERS: PCP Family Medicine; Visit Provider Physician Assistant
DX: J44.9 Chronic obstructive pulmonary disease, unspecified (principal); R94.2 Abnormal results of pulmonary function studies
CPT/HCPCS: 94060; 94375; 94618; 94726; 94729

== ENCOUNTER 2023-04-21 09:39 | Outpatient (CLI) | payer MEDICARE, SELFPAY ==
--- NOTE | ~2023-04-21 | CT_ITS ---
EXAMINATION: CT brain wo con DATE: 04/21/2023 10:00 INDICATION: Obesity. TECHNIQUE: Computed tomography (CT) of the head was performed without intravenous contrast. The dose- length product was 605.33 mGy-cm. Automated exposure control and iterative reconstruction technique w ere employed. COMPARISON: MRI dated 08/19/2011 FINDINGS: Brain parenchymal volume is normal for age. There are scattered mild periventricular and hoskins bcortical white matter changes, most likely related to small vessel ischemic disease (microangiopathy ). No ventriculomegaly or midline shift. Basilar cisterns are patent. Mild mucosal thickening of the maxillary sinuses. Mastoids are pneumatized. No depressed skull fractures. No acute infarction, hemor rhage or mass. IMPRESSION: 1. No acute intracranial abnormality. Reviewed, dictated and finalized at location A. 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
== END 2023-04-21 09:40 | disposition home or self-care (01) ==
PROVIDERS: PCP Family Medicine; Visit Provider Family Medicine
DX: R41.3 Other amnesia (principal); E66.9 Obesity, unspecified
CPT/HCPCS: 70450

== ENCOUNTER 2023-06-20 10:11 | Outpatient (CLI) | payer MEDICARE, SELFPAY ==
--- NOTE | 2023-07-11 17:55 | WPDSLEEPSTUD ---
Sleep Study Date of Study: 06/20/23 Ordering Provider: MACY Garay Interpreting Physician: Taniya Callejas DO Sleep Study Type: Polysomnogram Height: 1.57 m Weight: 82.554 kg Body Mass Index: 33.3 Neck Circumference (inches): 17.75 [place]: 16 Reason for Sleep Study Previously diagnosed CANDICE and was on PAP but could no longer afford it. Wants to restart therapy. Sleep History The patient is a 67-year-old female with COPD on oxygen, coronary artery disease, cardiac stents, history of myocardial infarction, diabetes, GERD, recurrent pancreatitis, dyslipidemia, current tobacco use and previously diagnosed sleep apnea that had a sleep study ordered the pulmonary group. The patient frequently awakens from sleep short of breath. She frequently awakens at night with heartburn, belching or cough. She constantly snores loudly enough that others complain. She rarely has trouble sleeping when she has a cold. She frequently wakes up gasping for air throughout the night. She frequently has breathing problems at night observed by herself or others. She rarely sweats excessively at night. She occasionally has heart palpitations or irregular heartbeats during the night. She constantly falls asleep during the day but rarely falls asleep while driving. She rarely experiences loss of muscle tone when extremely emotional. She denies having trouble at school or work due to sleepiness. She rarely feels unable to move while waking up or falling asleep. She occasionally experiences vivid dreamlike scenes upon awakening or falling asleep. She occasionally feels afraid of going to sleep. She rarely has nightmares and rarely remembers her dreams. She rarely has thoughts racing through her mind. She rarely feels sad, depressed or anxious. She occasionally has muscular tension. She constantly notices parts of her body jerk. She constantly kicks during the night. She frequently has crawling and aching feelings in her legs and frequently has leg pain during the night. She denies grinding her teeth during sleep and rarely awakens with morning jaw pain. She is constantly bothered by pain during the day and frequently awakened by pain during the night. She constantly wakes up feeling stiff in morning. She constantly wakes up with sore or achy muscles. She constantly wakes up with pain in the neck, spine and other joints. She goes to bed between 12 30-1 a.m. on weekdays and between midnight to 2:00 a.m. on the weekends. It takes her 5 minutes to fall asleep. She wakes up 2-3 times throughout the night and a can take 3-4 hours for her to fall back asleep. She wakes up between 3-5 a.m. on both weekdays and weekends. She typically gets 3-5 hours of sleep per night. She currently lives with her . She denies consuming any caffeinated beverages within 2 hours of bedtime. She denies engaging in physical exercise before bedtime. She will watch television before falling asleep. She will take naps in afternoon or the evening and they are refreshing. She consumes 2-3 cups of caffeinated beverage per day. She currently smokes 1 pack of cigarettes per day. She denies alcohol and recreational drug PMFSH Past Medical History Medical History Abdominal aortic aneurysm (AAA) without rupture Angina at rest Arthritis Edmonds's palsy CAD in [place] artery Choking due to food in larynx Cholecystitis, acute COPD (chronic obstructive pulmonary disease) Coronary artery disease Diverticulitis Dyslipidemia Fatty liver disease, nonalcoholic Fibromyalgia GERD (gastroesophageal reflux disease) Hemorrhoids History of chemotherapy Irritable bowel syndrome Kidney stones Mitral valve prolapse Obstructive sleep apnea Oropharyngeal dysphagia Osteoporosis Pancreatitis Peripheral neuropathy Rectal polyp Rheumatoid arthritis Skin cancer Sleep apnea Ulcer Surgical History Surgical History (Reviewe
[2023-07-11 18:02] VITALS: BMI 33.3
== END 2023-06-21 06:21 | disposition home or self-care (01) ==
LOC: ANHCSM 10:13
PROVIDERS: PCP Family Medicine; Visit Provider Physician Assistant
DX: G47.33 Obstructive sleep apnea (adult) (pediatric) (principal); G47.61 Periodic limb movement disorder; G31.84 Mild cognitive impairment of uncertain or unknown etiology; Z86.79 Personal history of other diseases of the circulatory system
CPT/HCPCS: 95810

== ENCOUNTER 2023-07-05 14:49 | Outpatient (CLI) | payer MEDICARE, SELFPAY ==
[2023-07-05 19:29] LABS: Appearance Urine Turbid (Clear); Bacteria Urine 2+ /hpf; Bilirubin Urine Negative (Negative); Blood Urine 2+ (Negative); Color Urine Yellow (Yellow); Glucose Urine UA Negative (Negative); Ketones Urine Negative (Negative); Leukocyte Esterase Ur 3+ LEU/UL (Negative); Nitrate Urine Negative (Negative); Non Pathogenic Casts 0-2; Protein Urine Negative (Negative); Specific Grav Ur 1.011 (1.001-1.035); Squamous Epithelial Cell Urine Occasional /hpf (Few); Urobilinogen Urine 0.2 mg/dL (<2.0); WBC Urine >100 /hpf (0-3); pH Urine 5.5 (5.0-9.0)
[2023-07-05 19:31] LABS: Add Urine Microscopic? YES
[2023-07-05 21:11] LABS: Creatinine Urine 46.1 mg/dL
[2023-07-05 21:17] LABS: MALB Creatinine Ratio 97.8 mg/g (0-30); Microalbumin Urine Random 45.1 mg/L (0-16.7)
== END 2023-07-05 14:50 | disposition home or self-care (01) ==
LOC: ANHBWCLAB 14:50
PROVIDERS: PCP Family Medicine; Visit Provider Nurse Practitioner Adult Health
DX: R39.9 Unspecified symptoms and signs involving the genitourinary system (principal); E11.9 Type 2 diabetes mellitus without complications
CPT/HCPCS: 82043; 87077; 87086; 87088; 87186

== ENCOUNTER 2023-08-15 11:44 | Outpatient (CLI) | payer MEDICARE, SELFPAY ==
[2023-08-15 18:54] LABS: Appearance Urine Clear (Clear); Bacteria Urine 4+ /hpf; Bilirubin Urine Negative (Negative); Blood Urine Negative (Negative); Color Urine Yellow (Yellow); Glucose Urine UA Negative (Negative); Ketones Urine Negative (Negative); Leukocyte Esterase Ur Trace LEU/UL (Negative); Nitrate Urine Positive (Negative); Non Pathogenic Casts 0-2; Protein Urine Negative (Negative); RBC Urine 0-2 /hpf (0-2); Squamous Epithelial Cell Urine Occasional /hpf (Few); Urobilinogen Urine 0.2 mg/dL (<2.0); pH Urine 5.5 (5.0-9.0)
[2023-08-15 19:17] LABS: Add Urine Microscopic? YES
== END 2023-08-15 11:45 | disposition home or self-care (01) ==
PROVIDERS: PCP Family Medicine; Visit Provider Nurse Practitioner Adult Health
DX: R39.9 Unspecified symptoms and signs involving the genitourinary system (principal)
CPT/HCPCS: 81001; 87077; 87086; 87088; 87186

== ENCOUNTER 2023-08-23 03:10 | Day surgery (SDC) | payer MEDICARE, SELFPAY ==
[2023-08-09 10:37] VITALS: BMI 32.0
[2023-08-23 07:15] VITALS: BP 134/70; PULSE 72; RESP 20; TEMP 36.2; O2SAT 98; BMI 33.0
[2023-08-23] MEDS: LACTATED RINGERS 1,000 ML 150 ML IV CONT (07:29)
[2023-08-23 07:31] LABS: Glucose Point of Care 123 mg/dl (65-105)
--- NOTE | 2023-08-23 08:10 | WPDANESEPPF ---
Anes - Initial Pre Proc Eval Procedure: Operation Date: 08/23/23 08:30 Proposed Procedures p Esophagogastroduodenoscopy - Syed Mishra MD Date/Time: 08/23/23 08:10 Surgeon: Syed Mishra MD Pre Op Diagnosis: GERD,Dysphagia,Oropharyneal Phase Patient Data Age: 67 Gender: F Height: 1.6 m Weight: 84.7 kg Last Vital Signs Temp 97.1 F L 08/23/23 07:15 Pulse 72 08/23/23 07:15 Resp 20 08/23/23 07:15 BP 134/70 08/23/23 07:15 Pulse Ox 98 08/23/23 07:15 O2 Del Method Room Air 08/23/23 07:15 Allergies Allergy/AdvReac Type Severity Reaction Status Date / Time canagliflozin Allergy Severe PANCREATITI Verified 08/23/23 07:14 S meperidine Allergy Severe TONGUE Verified 08/23/23 07:14 SWELLING/HIVES methotrexate Allergy Severe PANCREATITI Verified 08/23/23 07:14 S metformin AdvReac Diarrhea Verified 08/23/23 07:14 Home Medications Medication Instructions Recorded Confirmed Type aspirin 81 mg tablet,delayed 81 mg PO DAILY 10/29/19 08/23/23 History release (Adult Low Dose Aspirin) blood-glucose meter (OneTouch #1 ea 05/04/21 08/23/23 Rx Ultra2 Meter kit) pen needle, diabetic 32 gauge x #50 ea 05/04/21 08/23/23 Rx 1/4 (Comfort EZ Pen [place]) nitroglycerin 0.4 mg sublingual 0.4 mg sublingual Q5M PRN Chest 08/04/21 08/23/23 Rx tablet Pain #30 tabs blood sugar diagnostic (OneTouch #100 ea 09/28/21 08/23/23 Rx Ultra Test strips) flash glucose scanning reader #1 ea 12/20/22 08/23/23 Rx (FreeStyle Uday 2 [place]) ipratropium bromide 0.02 % 2.5 ml inhalation QID PRN 01/20/23 08/23/23 Rx solution for inhalation shortness of breath or wheezing #300 mL albuterol sulfate 2.5 mg/3 mL 2.5 mg (3 mL) inhalation BID PRN 03/13/23 08/23/23 Rx (0.083 %) solution for nebulization shortness of breath or wheezing #180 mL furosemide 20 mg tablet (Lasix) 20 mg PO QAM PRN edema #30 tabs 04/03/23 08/23/23 Rx tramadol 50 mg tablet 50 mg PO BID PRN pain #60 tabs 05/30/23 08/23/23 Rx arformoterol 15 mcg/2 mL solution 2 ml inhalation BID #120 mL 06/14/23 08/23/23 Rx for nebulization (Brovana) budesonide 0.5 mg/2 mL suspension 0.5 mg (2 mL) inhalation BID #120 06/14/23 08/23/23 Rx for nebulization mL [id number] 2 cap PO QID #300 caps 06/15/23 08/23/23 Rx 36,000-114,000-180,000 unit capsule,delay rel (Creon) carvedilol 3.125 mg tablet 3.125 mg PO BID #180 tabs 07/05/23 08/23/23 Rx cholecalciferol (vitamin D3) 1,250 1,250 mcg PO WEEKLY #90 caps 07/05/23 08/23/23 Rx mcg (50,000 unit) capsule albuterol sulfate 90 mcg/actuation See Rx Instructions .Route 07/14/23 08/23/23 Rx aerosol inhaler .COMPLEX #8.5 ea flash glucose sensor (FreeStyle #6 ea 07/22/23 08/23/23 Rx Uday 2 Sensor kit) ferrous sulfate 325 mg (65 mg 325 mg PO DAILY #30 tabs 07/24/23 08/23/23 Rx iron) tablet insulin glargine 100 unit/mL (3 55 unit (0.55 mL) subcut .COMPLEX 07/24/23 08/23/23 Rx mL) subcutaneous pen (Lantus #15 mL Solostar U-100 Insulin) flash glucose sensor (FreeStyle #6 ea 07/26/23 08/23/23 Rx Uday 2 Sensor kit) acetaminophen 650 mg 650 mg PO Q12H 08/09/23 08/23/23 History tablet,extended release glimepiride 2 mg tablet 2 mg PO BID 08/09/23 08/23/23 History isosorbide mononitrate 60 mg 60 mg PO DAILY 08/09/23 08/23/23 History tablet,extended release 24 hr lisinopril 5 mg tablet 5 mg PO DAILY 08/09/23 08/23/23 History rosuvastatin 40 mg tablet 40 mg PO HS 08/09/23 08/23/23 History Laboratory Tests 08/23/23 07:23 POC Capillary Glucose 123 H mg/dl (65-105) Patient hx anesthesia problems: none Family hx anesthesia problems: none Results Review: All pre-operative results and documents have been reviewed as part of the pre-operative evaluation. [facility] Past Medical History Medical History Abdominal aortic aneurysm (AAA) without rupture An
--- NOTE | 2023-08-23 08:20 | PM.HPGS ---
History of Present Illness History of Present Illness Consent: Risks, benefits, and alternatives have been discussed and questions answered. Patient agrees to proceed with procedure. Chief complaint: GERD,Dysphagia,Oropharyneal Phase Narrative: Keyla Arreaga is a 67 year old female with dysphagia initially with liquids now with some solids at throat level, brother with throat cancer. Review of Systems Review of Systems: All systems reviewed & are unremarkable except as noted in HPI and below PMFSH Past Medical History Medical History Abdominal aortic aneurysm (AAA) without rupture Angina at rest Arthritis Edmonds's palsy CAD [place] artery Choking due to food in larynx Cholecystitis, acute COPD (chronic obstructive pulmonary disease) Coronary artery disease Diverticulitis Dyslipidemia Fatty liver disease, nonalcoholic Fibromyalgia GERD (gastroesophageal reflux disease) Hemorrhoids History of chemotherapy Irritable bowel syndrome Kidney stones Mitral valve prolapse Obstructive sleep apnea Oropharyngeal dysphagia Osteoporosis Pancreatitis Peripheral neuropathy Rectal polyp Rheumatoid arthritis Skin cancer Sleep apnea Ulcer Surgical History Surgical History Cataracts, bilateral H/O cardiac catheterization with 4 cardiac stents History of cholecystectomy History of coronary artery stent placement 01/2018 and 04/2016 History of incisional hernia repair Family History Family History Father Family history of emphysema Other Cerebrovascular accident Diabetes mellitus Family history of cardiovascular disease Family history of coronary artery disease Family history of heart disease in male family member before age 55 Family history of lupus erythematosus Family history of osteoarthritis Family history of rheumatoid arthritis Family history of tuberculosis Hypertension Social History Social History Social History: started age 16, up at most 3 ppd; quit totally 2 years ago in Apr; restarted after of a niece and 2 brothers, now smokes less about half pack/day. Smoking packs per day: 1 Smoking cigarettes per day: 20.0 Years smoked: 51 Smoking pack-years: 51.00 Smoking status: Current every day smoker Tobacco type: cigarettes Second hand tobacco smoke exposure: No Additional smoking assessment comments: started age 16, Alcohol intake: never Substance use: never Substance use type: marijuana Lack of Transportation: No Lack of Food: Sometimes True Current Housing: I Do Not Have Housing Concerned About Future Housing: No Difficulty Paying Gas/Electric Bills: No Difficulty Paying for Meds: No Currently Unemployed: No Education: High School Diploma/GED Difficulty w/ Childcare or Family Care: No Living arrangements: with family Additional living arrangements comments: with , cat Elisa and a dog; cat plays hard, scratches Occupation/Education: retired Additional occupation/education comments: 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, 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[employer], 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, Gender identity (if verbalized by the patient): Female Spiritual care concerns: No Meds Home Medications and Allergies Home Medications Medication Instructions Recorded Confirmed Type aspirin 81 mg tablet,delayed 81 mg PO DAILY 10/29/19 08/23/23 History release (Adult Low Dose Aspirin) blood-glucose meter (OneTouch #1 ea 05/04/21 08/23/23 Rx Ultra2 Meter kit) pen needle, diabetic 32 gauge x #50 ea 05/04/21 08/23/23 Rx 1/4 (Comfort EZ Pen [place]) nitroglycerin 0.4 mg sublingual 0.4 mg sublingual Q5M PRN Chest 08/04/21 08/23/23 Rx tablet Pain #30 tabs blood sugar diagnostic (OneTouch #100 ea 09/28/21 08/23/23 Rx Ultra Test s
[2023-08-23 08:41] VITALS: BP 124/72; PULSE 77; RESP 24; O2SAT 100
[2023-08-23 08:51] VITALS: BP 122/76; PULSE 70; RESP 19; O2SAT 100
[2023-08-23 09:01] VITALS: BP 138/86; PULSE 71; RESP 19; O2SAT 100
== END 2023-08-23 09:04 | disposition home or self-care (01) ==
PROVIDERS: PCP Family Medicine; Visit Provider Internal Medicine Gastroenterology
PROC: 0DJ08ZZ Inspection of Upper Intestinal Tract, Via Natural or Artificial Opening Endoscopic (ICD-10-PCS; CPT 43235; principal; 2023-08-23 08:30)
DX: K22.2 Esophageal obstruction (principal); K29.50 Unspecified chronic gastritis without bleeding; K44.9 Diaphragmatic hernia without obstruction or gangrene; I71.40 Abdominal aortic aneurysm, without rupture, unspecified; I25.10 Atherosclerotic heart disease of native coronary artery without angina pectoris; J44.9 Chronic obstructive pulmonary disease, unspecified; E78.5 Hyperlipidemia, unspecified; K75.81 Nonalcoholic steatohepatitis (NASH); M79.7 Fibromyalgia; K21.9 Gastro-esophageal reflux disease without esophagitis; G47.33 Obstructive sleep apnea (adult) (pediatric); M06.9 Rheumatoid arthritis, unspecified; M81.0 Age-related osteoporosis without current pathological fracture; Z95.5 Presence of coronary angioplasty implant and graft; Z79.51 Long term (current) use of inhaled steroids; Z79.82 Long term (current) use of aspirin; Z79.4 Long term (current) use of insulin; Z79.84 Long term (current) use of oral hypoglycemic drugs; F17.210 Nicotine dependence, cigarettes, uncomplicated; E66.9 Obesity, unspecified; Z68.33 Body mass index [BMI] 33.0-33.9, adult
CPT/HCPCS: 43249; 43239; 82948; 88305; C1726; J2704; J7120

== ENCOUNTER 2023-10-05 11:38 | Outpatient (CLI) | payer MEDICARE, SELFPAY ==
[2023-10-05 19:07] LABS: Estimated Glomerular Filt Rate > 60
[2023-10-05 19:23] LABS: Creatinine Urine 73.7 mg/dL
[2023-10-05 19:36] LABS: Appearance Urine Cloudy (Clear); Bacteria Urine 4+ /hpf; Bilirubin Urine Negative (Negative); Blood Urine Negative (Negative); Color Urine Yellow (Yellow); Glucose Urine UA Negative (Negative); Ketones Urine Negative (Negative); Leukocyte Esterase Ur 2+ LEU/UL (Negative); Nitrate Urine Positive (Negative); Protein Urine Negative (Negative); RBC Urine 0-2 /hpf (0-2); Specific Grav Ur 1.011 (1.001-1.035); Squamous Epithelial Cell Urine Occasional /hpf (Few); Urobilinogen Urine 0.2 mg/dL (<2.0); WBC Urine 21-50 /hpf (0-3); pH Urine 5.5 (5.0-9.0)
[2023-10-05 19:38] LABS: Add Urine Microscopic? YES
[2023-10-05 19:58] LABS: MALB Creatinine Ratio < 8.1 mg/g (0-30); Microalbumin Urine Random < 6.0 mg/L (0-16.7)
== END 2023-10-05 11:39 | disposition home or self-care (01) ==
PROVIDERS: PCP Family Medicine; Visit Provider Nurse Practitioner Adult Health
DX: R39.9 Unspecified symptoms and signs involving the genitourinary system (principal); E11.9 Type 2 diabetes mellitus without complications
CPT/HCPCS: 36415; 81001; 82043; 82565; 87077; 87086; 87088; 87186

== ENCOUNTER → 2023-12-08 12:16 | Outpatient (CLI) | payer MEDICARE, SELFPAY ==
--- NOTE | ~2023-12-08 | XR_ITS ---
XR wrist LT 2V Ordering provider: Enio Lopez History: . HX RA/CHRONIC PAIN . Comparison: None. FINDINGS: BONES: No acute fracture or dislocation. No definite scaphoid fracture. Multiple lucencies in the di stal radius. JOINT SPACES: Narrowing of the radiocarpal joint. Narrowing of the carpometacarpal joints. Cystic changes seen in the lunate and capitate bones Osteoarthritic changes of the first carpometacarpal joint. SOFT TISSUES: Normal. IMPRESSION: No acute osseous abnormality left wrist. Osteopenia of the bones. Multiple joint narrowing. Cystic changes in the lunate and capitate bones. Rheumatoid arthritis is possible. Clinical evaluatio n advised. Osteoarthritic changes of the first carpometacarpal joint. Reviewed, dictated and finalized at location A. IMPRESSION: No acute osseous abnormality left wrist. Osteopenia of the bones. Multiple joint narrowing. Cystic changes in the lunate and capitate bones. Rheumatoid arthritis is possib le. Clinical evaluation advised. Osteoarthritic changes of the first carpometacarpal joint.
--- NOTE | ~2023-12-08 | XR_ITS ---
XR wrist RT 2V Ordering provider: Enio Lopez History: . HX RA/CHRONIC PAIN . Comparison: None. FINDINGS: BONES: No acute fracture or dislocation. No definite scaphoid fracture. Mild osteopenia of the bones . JOINT SPACES: Narrowing of the radiocarpal joint. Narrowing of the carpometacarpal and intercarpal melvin ints. SOFT TISSUES: Normal. IMPRESSION: No acute osseous abnormality right wrist. Reviewed, dictated and finalized at location A.
--- NOTE | ~2023-12-08 | XR_ITS ---
EXAMINATION: XR ankle RT 2V, XR foot RT 2V DATE: 12/08/2023 12:50 INDICATION: Rheumatoid arthritis with chronic right foot and ankle pain TECHNIQUE: 1. Anteroposterior and lateral view of the affected ankle were obtained. 2. Dorsoplantar and lateral views of the right foot were obtained. COMPARISON: None. FINDINGS: Alignment of the right foot and ankle is normal. No fracture. Suggestion of a prior bunionectomy at t he medial head of the first metatarsal. Polyarticular osteoarthritis at the right fore and midfoot, m oderate severity at the first metatarsophalangeal joint and mild at multiple tarsal metatarsal, inter phalangeal and remaining metatarsophalangeal joints. Small plantar calcaneal spur. No ankle joint eff usion. Soft tissue swelling about the lateral malleolus. IMPRESSION: 1. 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 Reviewed, dictated and finalized at location A. IMPRESSION: 1. 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
--- NOTE | ~2023-12-08 | XR_ITS ---
XR ankle LT 2V 12/08/2023 12:50 Indication: Left ankle pain Procedure: 2 views left ankle Comparison: No prior studies for comparison. Findings: No fracture or traumatic malalignment. Osteopenia. Ankle mortise intact. Talar dome is norm al. Small degenerative calcaneal enthesophytes. No foreign bodies. Impression: 1: No acute bone or joint abnormality. Reviewed, dictated and finalized at location B. Impression: 1: No acute bone or joint abnormality.
--- NOTE | ~2023-12-08 | XR_ITS ---
XR hand RT 2V Ordering provider: Pio Ayala History: . HX RA/CHRONIC PAIN . Comparison: None. FINDINGS: BONES: No acute fracture or dislocation. Osteopenia of the bones. JOINT SPACES: Narrowing of the proximal and distal interphalangeal joints. Subchondral cystic changes with possible erosions are noted. Which raises the possibility of rheumatoid arthritis. SOFT TISSUES: Normal. IMPRESSION: No acute osseous abnormality right hand. Rheumatoid arthritis changes are suggested. Reviewed, dictated and finalized at location A.
--- NOTE | ~2023-12-08 | XR_ITS ---
XR hand LT 2V Ordering provider: Pio Ayala History: . HX RA/CHRONIC PAIN . Comparison: None. FINDINGS: BONES: No acute fracture or dislocation. Osteopenia of the bones. JOINT SPACES: Narrowing of the proximal and distal interphalangeal joints. Subarticular erosions are seen with cystic changes which raises the possibility of rheumatoid arthritis. SOFT TISSUES: Unremarkable. IMPRESSION: No acute osseous abnormality left hand. Highly suggestive rheumatoid arthritis. Reviewed, dictated and finalized at location A.
--- NOTE | ~2023-12-08 | XR_ITS ---
XR foot LT 2V Ordering provider: Pio Ayala History: . HX RA/CHRONIC PAIN . Comparison: None. FINDINGS: BONES: No acute fracture or dislocation. JOINT SPACES: Slight narrowing of the proximal and distal interphalangeal joints. No tarsal coalition . SOFT TISSUES: Normal. IMPRESSION: No acute osseous abnormality left foot. Reviewed, dictated and finalized at location A.
== END ==
LOC: EXPBRAD 12:22
DX: M25.571 Pain in right ankle and joints of right foot (principal); M25.572 Pain in left ankle and joints of left foot; M25.542 Pain in joints of left hand; M25.541 Pain in joints of right hand; M25.532 Pain in left wrist; M25.531 Pain in right wrist; M06.9 Rheumatoid arthritis, unspecified; G89.29 Other chronic pain; M85.842 Other specified disorders of bone density and structure, left hand; M15.9 Polyosteoarthritis, unspecified
CPT/HCPCS: 73100; 73120; 73600; 73620

== ENCOUNTER 2024-01-13 11:23 | Outpatient (CLI) | payer MEDICARE, SELFPAY ==
--- NOTE | ~2024-01-13 | MM_ITS ---
EXAMINATION: MM screening jayda BI w rodney HISTORY: Screening TECHNIQUE: Craniocaudal and mediolateral oblique 3-D tomosynthesis images were obtained and synthetic 2-D images were generated. CAD analysis was submitted and interpreted. COMPARISON: Comparison to multiple prior studies sequentially, with oldest reviewed study dated 11/22. BREAST PARENCHYMAL COMPOSITION: Not dense: There are scattered areas of fibroglandular density. FINDINGS: There is no evidence of suspicious mass, calcification, or architectural distortion to sugg est malignancy in either breast. There has been no suspicious interval change. IMPRESSION: 1. No mammographic evidence of malignancy. 2. Recommend routine screening mammography in one year. BI-RADS Category 1: Negative Reviewed, dictated and finalized at location B.
== END 2024-01-13 11:24 | disposition home or self-care (01) ==
LOC: ANHIMG 11:25
PROVIDERS: PCP Nurse Practitioner Adult Health; Visit Provider Family Medicine
DX: Z12.31 Encounter for screening mammogram for malignant neoplasm of breast (principal)
CPT/HCPCS: 77063; 77067

== ENCOUNTER 2024-01-15 08:24 | Outpatient (CLI) | payer MEDICARE, SELFPAY ==
--- NOTE | ~2024-01-15 | CT_ITS ---
CT Scan of the Chest without Contrast: Clinical Indication: Negative dependence, lung cancer screening Technique: Contiguous sections were acquired throughout the chest without intravenous contrast. Dose reduction technique was used on this scan by utilizing automated exposure control and iterative recon struction technique. The dose-length product (DLP) was 239.79 mGy-cm. COMPARISON: 01/09/2023 Findings: There is no evidence of any significant mediastinal, hilar or axillary lymphadenopathy. Coronary bakari ry calcifications are present. There is no evidence of pleural or pericardial effusion. The lungs are clear. No pulmonary nodules or infiltrates are noted. Mild emphysema or cystic disease in the lungs. Images through the upper abdomen reveal no abnormalities. Impression: Lung RADS 1: Negative. 12 month follow-up screening CT advised. Mild emphysema. Reviewed, dictated and finalized at [facility]. Impression: Lung RADS 1: Negative. 12 month follow-up screening CT advised. Mild emphysema.
== END 2024-01-15 08:25 | disposition home or self-care (01) ==
PROVIDERS: PCP Nurse Practitioner Adult Health; Visit Provider Physician Assistant
DX: Z12.2 Encounter for screening for malignant neoplasm of respiratory organs (principal); J43.9 Emphysema, unspecified; Z87.891 Personal history of nicotine dependence
CPT/HCPCS: 71271

== ENCOUNTER → 2024-03-07 11:31 | Outpatient (CLI) | payer MEDICARE, SELFPAY ==
--- NOTE | ~2024-03-07 | XR_ITS ---
EXAMINATION: XR lumbar spine 2-3V DATE: 03/07/2024 13:12 INDICATION: Low back pain. TECHNIQUE: 5 views of lumbar spine were obtained. COMPARISON: Lumbar spine radiographs 05/24/2021 FINDINGS: Alignment is normal. Vertebral body heights are normal. There is mildly decreased disc heig ht from L1-L2 through L4-L5. There is multilevel facet joint osteoarthritis, severe in lower lumbar s pine. There is a 4.0 cm fusiform aneurysm of infrarenal aorta. IMPRESSION: 1. Mild lumbar spondylosis. 2. 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 Reviewed, dictated and finalized at location A. ESSOR [employer] LAW
--- NOTE | ~2024-03-07 | XR_ITS ---
EXAMINATION: XR sacroiliac joints min 3V DATE: 03/07/2024 13:11 INDICATION: Low back pain. TECHNIQUE: 3 views of the sacroiliac joints on 4 radiographs were obtained. COMPARISON: CT abdomen and pelvis 12/02/2022 FINDINGS: Alignment is normal. No fracture. There is mild osteoarthritis of the sacroiliac joints. Th ere is moderate lumbar spondylosis. There is mild osteoarthritis of the hips. IMPRESSION: 1. Mild osteoarthritis of the sacroiliac joints. No evidence of inflammatory arthropathy. Reviewed, dictated and finalized at location A. IC SERVICE ADMINISTRATOR IMPRESSION: 1. Mild osteoarthritis of the sacroiliac joints. No evidence of inflammatory ar thropathy.
== END ==
LOC: EXPBETH 11:36
DX: M47.816 Spondylosis without myelopathy or radiculopathy, lumbar region (principal); I71.9 Aortic aneurysm of unspecified site, without rupture; M46.1 Sacroiliitis, not elsewhere classified
CPT/HCPCS: 72100; 72202

== ENCOUNTER 2024-03-23 14:15 | Emergency (ER) | payer MEDICARE, SELFPAY ==
--- NOTE | ~2024-03-23 | CT_ITS ---
EXAMINATION: CT abdomen pelvis w con DATE: 03/23/2024 18:36 INDICATION: RUQ abdominal pain TECHNIQUE: Computed tomography (CT) of the abdomen and pelvis was performed with 100 mL Omnipaque-350 intravenous contrast. Automated exposure control and iterative reconstruction technique were employe d. The dose-length product was 863.30 mGy-cm. COMPARISON: None. FINDINGS: Lower thorax: Coronary artery calcification. Scattered air cysts. Mild peripheral reticular opacities . Liver: Normal. Biliary/Gallbladder: Gallbladder is absent. No bile duct dilation. Pancreas: Grossly stable appearing prominence of the pancreatic duct and side branches, with multiple pancreatic cysts. Spleen: Normal. Adrenals:No mass. Kidneys: No suspicious mass, obstructing stone, or hydronephrosis. Bilateral cortical thinning and sc arring. Left renal atrophy. GI tract: No small or large bowel dilation. Appendix not confidently visualized. Diverticulosis witho ut diverticulitis. Mesentery/Peritoneum: No ascites, mass, or free air. Retroperitoneum: No mass. Atherosclerotic abdominal aortic and/or arterial calcifications. 4.8 cm fus iform infrarenal abdominal aortic aneurysm. Pelvis: Pelvic organs are within normal limits. Soft Tissues: Small fat-containing, uncomplicated appearing supraumbilical ventral hernia. Bones: No acute osseous finding. IMPRESSION: No acute abdominopelvic process detected. Very mild, possible early interstitial changes in the lungs. 4.7 cm fusiform infrarenal abdominal aortic aneurysm, recommend follow-up CT abdomen and pelvis with contrast in 6 months. Multiple pancreatic cysts, recommend continued biannual follow-up with contrast-enhanced MR or pancre as protocol CT. Reviewed, dictated and finalized at location K. NITRATE PROCESSOR IMPRESSION: No acute abdominopelvic process detected. Very mild, possible early interstitial changes in the lungs. 4.7 cm fusiform infrarenal abdominal aortic aneurysm, recommend follow-up CT ab domen and pelvis with contrast in 6 months. Multiple pancreatic cysts, recommend continued biannual follow-up with contrast -enhanced MR or pancreas protocol CT.
[2024-03-23 15:09] VITALS: BP 135/93; PULSE 70; RESP 15; TEMP 36.6; O2SAT 97
[2024-03-23 15:20] LABS: Basophils Percent Auto 0.3 % (0.2-1.2); Eosinophils Absolute Auto 0.1 K/mm3 (0-0.3); Eosinophils Percent Auto 1.6 % (0-4.4); Hematocrit 41.7 % (37.0-47.0); Hemoglobin 13.8 g/dL (12.0-15.0); Immature Granulocyte Absolute 0.02 K/mm3 (0.00-0.031); Immature Granulocyte Percent A 0.3 % (0-0.5); Lymphocytes Percent Auto 29.6 % (18.3-44.2); Mean Corpuscular HGB Conc 33.1 g/dl (32-36); Mean Corpuscular Hemoglobin 30.7 pg (26-34); Mean Corpuscular Volume 92.7 fl (80-100); Monocytes Absolute Auto 0.4 K/mm3 (0.1-0.6); Monocytes Percent Auto 7.5 % (2.6-8.5); Neutrophils Absolute Auto 3.5 K/mm3 (1.3-6.7); Neutrophils Percent Auto 60.7 % (45.5-73.1); Platelet Count Result 173 k/mm3 (150-375); Red Cell Distribution Width 13.7 % (11.5-14.5); White Blood Count 5.7 K/mm3 (4.5-10.0)
[2024-03-23 15:31] LABS: Alanine Aminotransferase 21 U/L (6-35); Albumin Level 4.5 g/dL (3.5-5.1); Alkaline Phosphatase 86 U/L (38-126); Anion Gap 5 mmol/L (4-12); Aspartate Amino Transferase 27 U/L (14-36); Bilirubin,Total 0.5 mg/dL (0.2-1.3); Blood Urea Nitrogen 11 mg/dL (7-17); Calcium 9.6 mg/dL (8.4-10.2); Carbon Dioxide 30 mmol/L (22-30); Chloride 104 mmol/L (98-107); Estimated CRCL calculation 55 ml/min; Estimated Glomerular Filt Rate > 60; Glucose 201 mg/dL (65-110); Lipase 232 U/L (23-300); Potassium 4.2 mmol/L (3.4-5.0); Sodium 139 mmol/L (137-145)
[2024-03-23 15:33] LABS: Add Urine Microscopic? YES; Appearance Urine Clear (Clear); Bacteria Urine None Seen /hpf; Bilirubin Urine Negative (Negative); Blood Urine Negative (Negative); Color Urine Yellow (Yellow); Glucose Urine UA Negative (Negative); Ketones Urine Negative (Negative); Leukocyte Esterase Ur 2+ LEU/UL (Negative); Nitrate Urine Negative (Negative); Non Pathogenic Casts 0-2; Protein Urine Negative (Negative); RBC Urine 0-2 /hpf (0-2); Specific Grav Ur 1.004 (1.001-1.035); Squamous Epithelial Cell Urine None Seen /hpf (Few); Urobilinogen Urine 0.2 mg/dL (<2.0); pH Urine 5.5 (5.0-9.0)
[2024-03-23] MEDS: ONDANSETRON INJ 4 MG/2 ML VIAL IV PUSH (17:21)
[2024-03-23] MEDS: MORPHINE SULFATE (*CRX) 2 MG/ML INJ IV PUSH (17:31)
[2024-03-23 17:34] VITALS: BP 138/85; PULSE 71; RESP 18; O2SAT 95
--- NOTE | 2024-03-23 19:34 | ED.ABDPAIN ---
HPI - Abdominal Pain General Chief Complaint: Abdominal Pain Stated Complaint: pancreatitis Time Seen by Provider: 03/23/24 15:59 Source: patient Mode of arrival: ambulatory Limitations: no limitations History of Present Illness HPI narrative: This is a 68-year-old female, with history of pancreatitis, presents emergency department complaining of right upper quadrant and back pain for the past 2 days. The patient states this is similar to previous episodes of pancreatitis. Her pain is rated 8/10 described as sharp. She denies associated nausea, vomiting or bleeding of any kind. She has no other complaints at this time. Related Data Home Medications Medication Instructions Recorded Confirmed aspirin 81 mg tablet,delayed 81 mg PO DAILY 10/29/19 01/17/24 release (Adult Low Dose Aspirin) acetaminophen 650 mg 650 mg PO Q12H 08/09/23 01/17/24 tablet,extended release glimepiride 2 mg tablet 2 mg PO BID 08/09/23 01/17/24 isosorbide mononitrate 60 mg 60 mg PO DAILY 08/09/23 01/17/24 tablet,extended release 24 hr lisinopril 5 mg tablet 5 mg PO DAILY 08/09/23 01/17/24 rosuvastatin 40 mg tablet 40 mg PO HS 08/09/23 01/17/24 insulin glargine 100 unit/mL (3 55 unit subcut .COMPLEX 01/08/24 01/17/24 mL) subcutaneous pen (Lantus Solostar U-100 Insulin) clopidogrel 75 mg tablet 75 mg PO DAILY 01/17/24 01/17/24 etanercept 50 mg/mL (1 mL) 50 mg subcut WEEKLY 01/17/24 01/17/24 subcutaneous pen injector (Enbrel SureClick) Allergies Allergy/AdvReac Type Severity Reaction Status Date / Time canagliflozin Allergy Severe PANCREATITI Verified 03/23/24 14:18 S meperidine Allergy Severe TONGUE Verified 03/23/24 14:18 SWELLING/HIVES methotrexate Allergy Severe PANCREATITI Verified 03/23/24 14:18 S metformin AdvReac Diarrhea Verified 03/23/24 14:18 Review of Systems Review of Systems: All systems reviewed & are unremarkable except as noted in HPI and below PMFSH Past Medical History Medical History Abdominal aortic aneurysm (AAA) without rupture Angina at rest Arthritis Edmonds's palsy CAD in [place] artery Choking due to food in larynx Cholecystitis, acute COPD (chronic obstructive pulmonary disease) Coronary artery disease Diverticulitis Dyslipidemia Fatty liver disease, nonalcoholic Fibromyalgia GERD (gastroesophageal reflux disease) Hemorrhoids History of chemotherapy Irritable bowel syndrome Kidney stones Mitral valve prolapse Obstructive sleep apnea Oropharyngeal dysphagia Osteoporosis Pancreatitis Peripheral neuropathy Rectal polyp Rheumatoid arthritis Skin cancer Sleep apnea Systemic lupus Ulcer Surgical History Surgical History Cataracts, bilateral H/O cardiac catheterization with 4 cardiac stents History of cholecystectomy History of coronary artery stent placement 01/2018 and 04/2016 History of incisional hernia repair Family History Family History Father Family history of emphysema Other Cerebrovascular accident Diabetes mellitus Family history of cardiovascular disease Family history of coronary artery disease Family history of heart disease in male family member before age 55 Family history of lupus erythematosus Family history of osteoarthritis Family history of rheumatoid arthritis Family history of tuberculosis Hypertension Social History Social History Social History: started age 16, up at most 3 ppd; quit totally 2 years ago in Apr; restarted after of a niece and 2 brothers, now smokes less about half pack/day. Smoking packs per day: 1 Smoking cigarettes per day: 20.0 Years smoked: 51 Smoking pack-years: 51.00 Smoking status: Former smoker Tobacco type: cigarettes Second hand tobacco smoke exposure: No Smoking end date: 12/13/23 Additional smoking assessment comments: started age 16, Alcohol intake: never Substance use: never Substance use type: marijuana Lack of Transportation: No Lack of Food: Sometimes True Current Housing: I Do Not Have Housing Concerned About Future Housing: No Difficulty Paying Gas/Electric Bills: No Difficulty Paying for Meds: No Currently Unemployed: No Education: High School Diploma/GED Difficulty w/ Childcare or Family Care: No Living arrangements: with family Additional living arrangements comments: with , cat Elisa and a dog; cat plays hard, scratches Occupation/Education: retired Additional occupation/education comments: [employer]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 HEAD: Normocephalic, atraumatic. EYES: PERRLA and EOMI. CHEST: Clear to auscultation. No respiratory distress. No wheezes rales or rhonchi HEART: Regular rate and rhythm. No murmur heard. Normal peripheral pulses. ABDOMEN: Soft, tender palpation in the right upper quadrant and epigastrium, without rebound or guarding, nondistended, normal active bowel sounds. Bilateral CVA tenderness to palpation EXTREMITIES: Normal range of motion. No edema. SKIN: Warm, dry, no rash. NEURO: Alert and oriented x3. No focal deficit. Moving all 4 limbs spontaneously PSYCH: Normal mood and affect. Course Course Emergency Course: 19:35 - CBC unremarkable. Chemistries demonstrate mild hyperglycemia glucose of 2 1 but is otherwise unremarkable, including a lipase of 232. Urinalysis shows changes consistent with urinary tract infection. CT abdomen pelvis not concerning for acute intra-abdominal process and shows unchanged cysts on the pancreas. On re-evaluation, the patient states her pain is significantly improved. Will discharge with oral antibiotics for suspected pyelonephritis and pain medications. I discussed the findings and recommendations with the patient. Discussed return and emergency precautions including signs/symptoms of acute abdomen intractable vomiting. The patient voiced understanding and agreement with the plan. All questions answered to her satisfaction. Vital Signs Vital signs: Vital Signs Temperature 97.8 F 03/23/24 15:09 Pulse Rate 70 03/23/24 15:09 Respiratory Rate 15 03/23/24 15:09 Blood Pressure 135/93 H 03/23/24 15:09 Pulse Oximetry 97 03/23/24 15:09 Temperature 97.8 F 03/23/24 15:09 Pulse Rate 71 03/23/24 17:34 Respiratory Rate 18 03/23/24 17:34 Blood Pressure 138/85 03/23/24 17:34 Pulse Oximetry 95 03/23/24 17:34 MDM - Abdominal Pain MDM Narrative Medical decision making narrative: Plan: Labs, imaging, pain control, reassess Differential Diagnosis Differential diagnosis: Likely calculus of kidney, diverticulitis, gastroenteritis, pancreatitis, small bowel obstruction and other (Pyelonephritis, metabolic abnormality, other) Lab Data 03/23/24 15:14 03/23/24 15:14 Labs: Lab Results 03/23/24 Range/Units 15:14 WBC 5.7 (4.5-10.0) K/mm3 RBC 4.50 (4.2-5.4) M/mm3 Hgb 13.8 (12.0-15.0) g/dL Hct 41.7 (37.0-47.0) % MCV 92.7 (80-100) fl MCH 30.7 (26-34) pg MCHC 33.1 (32-36) g/dl RDW 13.7 (11.5-14.5) % Plt Count 173 (150-375) k/mm3 MPV 10.0 (7.4-10.4) fl Immature Gran % (Auto) 0.3 (0-0.5) % Neut % (Auto) 60.7 (45.5-73.1) % Lymph % (Auto) 29.6 (18.3-44.2) % [place] % (Auto) 7.5 (2.6-8.5) % Eos % (Auto) 1.6 (0-4.4) % Baso % (Auto) 0.3 (0.2-1.2) % Lymph # (Auto) 1.70 (0.9-3.2) K/mm3 [place] # (Auto) 0.4 (0.1-0.6) K/mm3 Eos # (Auto) 0.1 (0-0.3) K/mm3 Baso # (Auto) 0.0 (0.0-0.1) K/mm3 Abs Immat Gran (auto) 0.02 (0.00-0.031) K/mm3 Absolute Neuts (auto) 3.5 (1.3-6.7) K/mm3 Absolute Nucleated RBC 0.000 (0.0-0.012) K/mm3 Nucleated RBC % 0.0 (0.0-0.2) % Sodium 139 (137-145) mmol/L Potassium 4.2 (3.4-5.0) mmol/L Chloride 104 (98-107) mmol/L Carbon Dioxide 30 (22-30) mmol/L Anion Gap 5 (4-12) mmol/L BUN 11 D (7-17) mg/dL Creatinine 0.90 (0.7-1.0) mg/dL Estim Creat Clear Calc 55 ml/min Estimated GFR > 60 (59 - ) Glucose 201 H (65-110) mg/dL Calcium 9.6 (8.4-10.2) mg/dL Total Bilirubin 0.5 (0.2-1.3) mg/dL AST 27 (14-36) U/L ALT 21 (6-35) U/L Alkaline Phosphatase 86 (38-126) U/L Total Protein 8.0 (6.3-8.2) g/dL Albumin 4.5 (3.5-5.1) g/dL Lipase 232 (23-300) U/L Urine Color Yellow (Yellow) Urine Appearance Clear (Clear) Urine pH 5.5 (5.0-9.0) Ur Specific [place] 1.004 (1.001-1.035) Urine Protein Negative (Negative) mg/dL Urine Glucose (UA) Negative (Negative) mg/dL Urine Ketones Negative (Negative) mg/dL Ur Blood (Man) Negative (Negative) Urine Nitrate Negative (Negative) Urine Bilirubin Negative (Negative) Urine Urobilinogen 0.2 (<2.0) mg/dL Leukocyte Esterase Rfl 2+ H (Negative) REBEKAH/UL Urine RBC 0-2 (0-2) /hpf Urine WBC 11-20 H (0-3) /hpf Ur Squamous Epith Cells None seen (Few) /hpf Urine Bacteria None seen /hpf Urine Casts 0-2 Imaging Data Radiologist's impression: ITS Impressions Abdomen/Pelvis CT 03/23/24 18:49 IMPRESSION: No acute abdominopelvic process detected. Very mild, possible early interstitial changes in the lungs. 4.7 cm fusiform infrarenal abdominal aortic aneurysm, recommend follow-up CT abdomen and pelvis with contrast in 6 months. Multiple pancreatic cysts, recommend continued biannual follow-up with contrast-enhanced MR or pancreas protocol CT. Discharge Plan Discharge Clinical Impression: Acute pyelonephritis, Acute right flank pain Patient Disposition: Home, Self-Care Condition: Stable Instructions: Antibiotic Form Additional Instructions: You were seen in the emergency department. Your labs show changes consistent with a urinary tract infection. A CT of the abdomen was not concerning for acute intra-abdominal process. I recommend a course of antibiotic, pain medications and follow-up with your primary care doctor. If you develop severe abdominal pain, abdominal pain with fevers, persistent vomiting, or if you have other emergent concerns for life, limb, or eyesight, return to the emergency department. Patient Language: Irish Prescriptions: New sulfamethoxazole-trimethoprim 800-160 mg tablet 1 tablet PO Q12H 14 Days Qty: 28 0RF hydrocodone-acetaminophen 5-325 mg tablet 1 tablet PO Q12H PRN (Reason: pain, severe) Qty: 8 0RF No Action (DME) FreeStyle Uday 2 [place] Misc See Rx Instructions .Route Qty: 1 0RF Rx Instructions: As directed carvedilol 3.125 mg tablet 3.125 mg PO BID Qty: 180 3RF cholecalciferol (vitamin D3) 1,250 mcg (50,000 unit) capsule 1,250 mcg PO WEEKLY Qty: 90 0RF Rx Instructions: Monday clopidogrel 75 mg tablet 75 mg PO DAILY Enbrel SureClick 50 mg/mL (1 mL) pen injector 50 mg subcut WEEKLY albuterol sulfate 2.5 mg/0.5 mL solution for nebulization 2.5 mg inhalation Q6H PRN (Reason: shortness of breath or wheezing) Qty: 90 3RF albuterol sulfate 90 mcg/actuation HFA aerosol inhaler 1 - 2 puff inhalation Q4-6H PRN (Reason: shortness of breath or wheezing) Qty: 8.5 2RF Breztri Aerosphere 160-9-4.8 mcg/actuation HFA aerosol inhaler 2 inh inhalation BID Qty: 10.7 5RF Rx Instructions: Rinse mouth and spit after each use. insulin glargine [Lantus Solostar U-100 Insulin] 100 unit/mL (3 mL) insulin pen 55 unit subcut .COMPLEX Rx Instructions: 40 units in the morning and 55 units at night; (DME) FreeStyle Uday 2 Sensor Kit See Rx Instructions .Route Qty: 6 5RF Rx Instructions: As directed aspirin [Adult Low Dose Aspirin] 81 mg tablet,delayed release (DR/EC) 81 mg PO DAILY (DME) blood-glucose meter [OneTouch Ultra2 Meter] Kit See Rx Instructions .Route Qty: 1 0RF Rx Instructions: use daily (DME) pen needle, diabetic [Comfort EZ Pen [place]] 32 gauge x 1/4 needle See Rx Instructions .Route Qty: 50 5RF Rx Instructions: use daily furosemide [Lasix] 20 mg tablet 20 mg PO QAM PRN (Reason: edema) Qty: 30 0RF Creon 36,000-114,000- 180,000 unit capsule,delayed release(DR/EC) 2 cap PO QID Qty: 300 6RF Rx Instructions: administer with meals and/or snacks tramadol 50 mg tablet 50 mg PO BID PRN (Reason: pain) Qty: 60 1RF glimepiride 2 mg Tablet 2 mg PO BID acetaminophen [Tylenol Arthritis] 650 mg Tablet Extended Release 650 mg PO Q12H isosorbide mononitrate 60 mg tablet extended release 24 hr 60 mg PO DAILY lisinopril 5 mg Tablet 5 mg PO DAILY rosuvastatin 40 mg tablet 40 mg PO HS nitroglycerin 0.4 mg tablet, sublingual 0.4 mg SUBLINGUAL Q5M PRN (Reason: Chest Pain) Qty: 30 1RF Rx Instructions: may repeat every 5 minutes up to 3 doses. (DME) OneTouch Ultra Test Strip See Rx Instructions .Route Qty: 100 1RF Rx Instructions: Check blood sugar daily pantoprazole 40 mg tablet,delayed release (DR/EC) 40 mg PO QAM Qty: 30 5RF insulin lispro [Humalog U-100 Insulin] 100 unit/mL solution 5 unit subcut .COMPLEX Qty: 10 1RF Rx Instructions: 5 units subcutaneously tid prior to meals if blood sugar > 150; (DME) insulin syringe-needle U-100 [BD Insulin Syringe] 0.3 mL 29 gauge x 1/2 syringe See Rx Instructions .Route Qty: 10 1RF Rx Instructions: As directed with humalog ferrous sulfate 325 mg (65 mg iron) tablet See Rx Instructions .ROUTE .COMPLEX Qty: 90 1RF Dose Instruction: TAKE 1 TABLET EACH MORNING ON AN EMPTY STOMACH. Rx Instructions: TAKE 1 TABLET EACH MORNING ON AN EMPTY STOMACH. insulin lispro [Humalog KwikPen Insulin] 100 unit/mL insulin pen See Rx Instructions subcut USEASDIRECTD Qty: 3 6RF Rx Instructions: Inject 5 units prior to meals if blood sugar > 150 subcutaneously use as directed; Follow-up/Referrals: Rohith Sen MD [Primary Care Provider] - 1 Week Time of Disposition: 19:49
[2024-03-23] MEDS: SULFAMETHOXAZOLE/TRIMETHOPRIM 800/160 MG DS TABLET 1 TAB PO (20:04)
== END 2024-03-23 20:08 | disposition home or self-care (01) ==
PROVIDERS: Emergency Provider Preventive Medicine Aerospace Medicine; PCP Family Medicine
DX: N10 Acute pyelonephritis (principal); I25.10 Atherosclerotic heart disease of native coronary artery without angina pectoris; I34.1 Nonrheumatic mitral (valve) prolapse; J44.9 Chronic obstructive pulmonary disease, unspecified; E11.9 Type 2 diabetes mellitus without complications; E78.5 Hyperlipidemia, unspecified; K21.9 Gastro-esophageal reflux disease without esophagitis; K58.9 Irritable bowel syndrome, unspecified; M79.7 Fibromyalgia; M32.9 Systemic lupus erythematosus, unspecified; M06.9 Rheumatoid arthritis, unspecified; M81.0 Age-related osteoporosis without current pathological fracture; M19.90 Unspecified osteoarthritis, unspecified site; Z95.5 Presence of coronary angioplasty implant and graft; G47.33 Obstructive sleep apnea (adult) (pediatric); Z87.442 Personal history of urinary calculi; Z85.828 Personal history of other malignant neoplasm of skin; Z92.21 Personal history of antineoplastic chemotherapy; Z86.0100 Personal history of colon polyps, unspecified; Z90.49 Acquired absence of other specified parts of digestive tract; Z98.42 Cataract extraction status, left eye; Z98.41 Cataract extraction status, right eye; Z79.4 Long term (current) use of insulin; Z79.84 Long term (current) use of oral hypoglycemic drugs; Z79.02 Long term (current) use of antithrombotics/antiplatelets; Z79.82 Long term (current) use of aspirin; Z79.899 Other long term (current) drug therapy; I71.43 Infrarenal abdominal aortic aneurysm, without rupture; K86.2 Cyst of pancreas
CPT/HCPCS: 36415; 74177; 80053; 81001; 83690; 85025; 87077; 87086; 87186; 96374; 96375; 99284; A9270; J2270; J2405; Q9967

== ENCOUNTER 2024-05-14 08:43 | Outpatient (CLI) | payer MEDICARE, SELFPAY ==
[2024-05-14 20:14] LABS: Alanine Aminotransferase 22 U/L (6-35); Albumin Level 3.9 g/dL (3.5-5.1); Alkaline Phosphatase 85 U/L (38-126); Anion Gap 5 mmol/L (4-12); Aspartate Amino Transferase 32 U/L (14-36); Bilirubin,Total 0.4 mg/dL (0.2-1.3); Blood Urea Nitrogen 15 mg/dL (7-17); Calcium 9.7 mg/dL (8.4-10.2); Carbon Dioxide 31 mmol/L (22-30); Chloride 105 mmol/L (98-107); Cholesterol 131 mg/dL (0-200); Estimated Glomerular Filt Rate > 60; Glucose 138 mg/dL (65-110); HDL Direct 37 mg/dL; Potassium 4.3 mmol/L (3.4-5.0); Sodium 141 mmol/L (137-145); Triglycerides 249 mg/dL (<150)
[2024-05-14 20:24] LABS: LDL Cholesterol Direct 53 mg/dL
[2024-05-14 20:33] LABS: Vitamin D 25 Hydroxy 75.9 ng/mL
[2024-05-14 20:41] LABS: Creatinine Urine 49.6 mg/dL
[2024-05-14 20:47] LABS: Microalbumin Urine Random < 6.0 mg/L (0-16.7)
[2024-05-14 20:48] LABS: MALB Creatinine Ratio < 12.1 mg/g (0-30)
== END 2024-05-14 08:44 | disposition home or self-care (01) ==
LOC: ANHBWCLAB 08:44
PROVIDERS: PCP Nurse Practitioner Adult Health; Visit Provider Nurse Practitioner Adult Health
DX: E11.9 Type 2 diabetes mellitus without complications (principal); E55.9 Vitamin D deficiency, unspecified
CPT/HCPCS: 36415; 80053; 80061; 82043; 82306; 82565; 83036

== ENCOUNTER 2024-06-13 12:20 | Outpatient (CLI) | payer MEDICARE, SELFPAY ==
--- OUTSIDE RECORDS SUMMARY | 2024-06-13 12:31 | XMS_ITS | Clinical Summary ---
Author Organization [facility] Address [address] [place] [address] Phone Care Team Providers Care School Guard Name Role Phone Joseph Sweet MD Primary Care Provider Kenneth Ward DPM Unavailable [phone] Hermann Olivia DO Unavailable [phone] Naida Odonnell MD Unavailable Allergies Active Allergy Reactions Criticality Noted Date Comments Meperidine Hives,Swelling 06/12/2015 Swelling in mouth, hard to swollow Methotrexate Other (see Comments) 06/12/2015 pancreatitis Medications PROAIR HFA 108 (90 BASE) MCG/ACT Aerosol Solution as needed. 5 Active cyanocobalamin (VITAMIN B-12) 1000 MCG/ML Solution Once a month 6 Active famotidine (PEPCID) 40 MG Tablet 1 Tab daily. 5 Active Meloxicam 15 MG Tablet 1 Tab daily. 5 Active metFORMIN (GLUCOPHAGE-XR) 500 MG TABLET SR 24 HR 1 Tab daily. 5 Active TOPROL XL 100 MG TABLET SR 24 HR 1 Tab daily. 5 Active metroNIDAZOLE (FLAGYL) 500 MG Tablet 1 Tab daily. 0 5 Active DULERA 100-5 MCG/ACT Aerosol 2 Puffs 2 times daily. 5 Active pramipexole (MIRAPEX) 0.125 MG Tablet 1 Tab daily. 6 Active LYRICA 50 MG Capsule 1 Tab 3 times daily. 5 Active venlafaxine (EFFEXOR-XR) 75 MG CAPSULE SR 24 HR 1 Cap daily. 5 Active traMADol (ULTRAM) 50 MG Tablet Take 1 Tab by mouth every 6 hours as needed for Pain. 10 Tab 0 6 Active polyethylene glycol (MIRALAX) Powder Use entire 255g bottle with 64oz of clear liquid as directed for colonoscopy prep. 255 g 0 6 Active Active Problems Problem Noted Date Diagnosed Date Diabetic polyneuropathy asso ciated with type 2 diabetes mellitus 06/12/2015 Ingrown right greater toenail 06/12/2015 Family History Medical History Relation Name Comments Colon Cancer Paternal Grandmother Other-comment Son pancreatitis Relation Name Status Comments Paternal Grandmother Son Social History Tobacco Use Types Packs/Day Years Used Date Smoking Tobacco: Every Day Cigarettes 1 43 Smokeless Tobacco: Never Tobacco Cessation:Ready to Q uit: Yes; Counseling Given: Yes Alcohol Use Standard Drinks/Week Comments No 0 (1 standard drink = 0.6 oz pur e alcohol) Comments No Sex and Gender Information Value Date Recorded Sex Assigned at Not on file Legal Sex Female 9:19 PM CDT Gender Identity Not on file Sexual Orientation Not on file Last Filed Vital Signs Vital Sign Reading Time Taken Comments Blood Pressure 116/80 02/03/2016 9:39 AM CDT Pulse 65 02/03/2016 9:39 AM CDT Temperature 36.1 C (96.9 F) 02/03/2016 9:39 AM CDT Respiratory Rate 20 02/03/2016 9:39 AM CDT Oxygen Saturation 96% 02/03/2016 9:39 AM CDT Inhaled Oxygen Concentration - - Weight 92.5 kg (204 lb) 02/03/2016 9:39 AM CDT Height 160 cm (5' 3 ) 02/03/2016 9:39 AM CDT Body Mass Index 36.14 02/03/2016 9:39 AM CDT Plan of Treatment Health Maintenance Due Date Last Done Comments DEXA Bone Density 1956 Diabetes: Eye Exam 1956 Diabetes: Foot Exam 1956 Diabetes: Hemoglobin A1c 1955 Hepatitis C Virus (HCV) Screening 1955 TdaP Immunization 1956 Diabetes: Nephropathy Screening 1974 Pneumococcal Immunization (5 0+ years) (1 of 2 - PCV) 11/16/1975 Colonoscopy 2001 Colorectal Cancer Screening 2001 Cologuard 2006 Immunochemical Fecal Occult Blood 2006 Mammogram 2006 Zoster Immunization (1 of 2) 2006 Respiratory Syncytial Virus (RSV) Immunization (Adult) (1 - Risk 60-74 years 1-dose series) 2016 Influenza Immunization (#1) 2023 SARS-COV-2 Immunization () 12/24/2023 Hepatitis B Immunization Aged Out No longer eligible based on patient's age to complete this topic Meningococcal Immunization (ACWY) Aged Out No longer eligible based on patient's age to complete this topic Rotavirus Immunization Aged Out No lo nger eligible based on patient's age to complete this topic Insurance MEDICARE Care Teams School Guard Relationship Specialty Start Date End Date Joseph Sweet MD [address] [place] [address] PCP - General Family Medicine 06/12/15 Kenneth Ward DPM [address] [place] [address] Podiatry 06/12/15 Hermann Olivia [place] [address] Gastroenterology 02/02/16 Naida Odonnell MD [address] [place] [address] Family Medicine 02/02/16
--- OUTSIDE RECORDS SUMMARY | 2024-06-13 12:32 | XMS_ITS | Encounter Summary ---
Author Organization [facility] Address [address] [place] [address] Care Team Providers Care Mustanger Name Role Phone Karan Ngo MD Unavailable Abdulkadir Craft MD Unavailable Carole Neal MD Unavailable [phone] Rohith Sen MD Primary Care Provider [phone] Encounter Details Date Type Department Care Team (Late st Contact Info) Description 01/30/[address] [facility] [place] [id number] Maximo Jones MD [address] [facility]. [place], [place] [id number] Social History Tobacco Use Types Packs/Day Years Used Date Smoking Tobacco: Every Day Cigarettes 1 51 Smokeless Tobacco: Never Alcohol Use Standard Drinks/Week Comments Not Currently 0 (1 standard drink = 0.6 oz pur e alcohol) Comments No Sex and Gender Information Value Date Recorded Sex Assigned at Not on file Legal Sex Female 6:09 PM CDT Gender Identity Not on file Sexual Orientation Not on file COVID-19 Exposure Response Date Recorded In the last month, have you been in contact with someone who was confirmed or suspected to have Coronavirus / COVID-19? No / Unsure 01/29/2021 12:39 PM CDT documented as of this encounter H&P Notes * Maximo Jones MD - 01/30/2021 1:48 PM CDT Attending Provider: No att. providers found PCP: No primary care provider on file. Keyla Arreaga is an 65-year-old female. Reason for Admission: surgical procedure HPI: Mixed incontinence. ROHAN prodominates Past Medical History: Diagnosis Date ??? Arthritis RA, osteoarthritis, psoriatric arthritis ??? Cancer ([facility]) leukemia as a child ??? Colitis ??? COPD (chronic obstructive pulmonary disease) ([facility]) ??? Coronary artery disease ??? 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 Diabetes mellitus ([facility]) ??? Diverticulitis ??? Emphysema lung ([facility]) ??? MVP (mitral valve prolapse) ??? Neuropathy feet ??? On supplemental oxygen by nasal cannula 4L O2 PRN ??? Seizure ([facility]) patient unsure about this ??? Stroke ([facility]) possible TIA? Allergies: Allergies Allergen Reactions ??? Meloxicam Other (see comment) pancreatitis ??? Methotrexate Other (see comment) pancreatitis Social History Tobacco Use ??? Smoking status: Current Every Day Smoker Packs/day: 1.00 Years: 51.00 Pack years: 51.00 Types: Cigarettes ??? Smokeless tobacco: Never Used Substance Use Topics ??? Alcohol use: Not Currently Past Surgical History: Procedure Laterality Date ??? CARDIAC CATHETERIZATION 4 stents ??? CHOLECYSTECTOMY ??? COLONOSCOPY ??? HERNIA REPAIR x3 ??? JOINT REPLACEMENT bilateral knee Family History Problem Relation Name Age of Onset ??? Diabetes Mother ??? Stroke Mother ??? Dementia Mother ??? Heart Disease Father ??? COPD Father ??? Cancer Sister ??? Breast Cancer Sister ??? Cancer Brother ??? No Known Problems Son ??? Cancer Brother ??? Cancer Brother ??? Cancer Sister ??? Uterine Cancer Sister Travel Exposure: Current Outpatient Medications on File Prior to Visit Medication Sig ??? albuterol (2.5 MG/3ML) 0.083% nebulizer solution Take 2.5 mg by nebulization every 6 (six) hours as needed for Wheezing or Shortness of breath. ??? aspirin EC (ASPIRIN EC) 81 MG tablet Take 81 mg by mouth daily. ??? atorvastatin 80 MG tablet Take 80 mg by mouth nightly at bedtime. ??? carvedilol 3.125 MG tablet Take 3.125 mg by mouth 2 (two) times daily. ??? ezetimibe 10 MG tablet Take 10 mg by mouth daily. ??? glipiZIDE 10 MG tablet Take 10 mg by mouth every morning before breakfast. ??? insulin glargine (BASAGLAR KWIKPEN) 100 UNIT/ML injection (PEN) Inject into the skin nightly atbedtime. ??? lisinopril 5 MG tablet Take 5 mg by mouth daily. ??? nitroglycerin 0.4 MG/HR Place 1 patch onto the skin daily as needed (chest pain). ??? predniSONE 20 MG tablet Take 20 mg by mouth daily. ??? pregabalin 100 MG capsule Take 1 capsule by mouth nightly at bedtime. ??? ticagrelor 60 MG tablet Take 60 mg by mouth 2 (two) times daily. ??? tofacitinib 10 MG tablet Take 10 mg by mouth 2 (two) times daily. No current facility-administered medications on file prior to visit. There were no vitals taken for this visit. ROS neg Physical Exam + urethral hypermobility Assessment: ROHAN Plan: Pt has elected to undergo Mid-urethral sling. Risks, benefits and alternative d/w the patient. Risks include but not limited to bleeding, infection, pain, anesthesia, damage to surrounding organs. There is a risk of failure, recurrance and that this procedure will not help OAB symptoms if present and in some cases may worsen. There is a risk of mesh erosion or exposure in the vagina or urinary tract. There is a risk of urinary retention requiring catheterization and secondary procedure to lossen, cut or remove the sling. There is a risk of returning to the OR for any of the above listed complications. Patient understands and wishes to proceed. MAXIMO JONES MD 01/30/2021 documented in this encounter Plan of Treatment Not on file documented as of this encounter Visit Diagnoses Not on filedocumented in this encounter Care Teams Mustanger Relationship Specialty Start Date End Date Rohith Sen MD [address] [id number] PCP - General FAMILY PRACTICE 02/03/23 Karan Ngo MD [address] [facility] [address] [place] [address] CARDIOVASCULAR DISEASE 01/29/21 [place] [address] [place] [address] Referring Physician RHEUMATOLOGY 01/29/21 Carole Neal MD [address] [place] [address] PULMONARY DISEASE 01/29/21 documented as of this encounter
--- OUTSIDE RECORDS SUMMARY | 2024-06-13 12:32 | XMS_ITS | Referral Summary ---
Author Organization [facility] [place] [address] [facility] [address] Address [address] [place] [address] Care Team Providers Care Proc Tech Name Role Phone Karan Ngo MD Unavailable Rohith Sen MD Primary Care Provider [phone] Encounters Date Type Department Care Team Description 05/06/2024 Telephone [facility] Cardiology [address] [place] [address] Karan Ngo MD from Last 3 Months Allergies Active Allergy Reactions Criticality Noted Date Comments Meloxicam Other (See comments) Low 01/29/2021 pancreatitis Meperidine Other (See comments),Hives,Swelling Medium 06/12/2015 Swelling in mouth, hard to swollow Reaction: anaphylaxis, Metformin Diarrhea Low 07/10/2018 Methotrexate Other (See comments) Low 06/12/2015 pancreatitis Reaction: pancreatitis, pancreatitis pancreatitis Medications aspirin 81 mg tabletIndications :prevention of thrombosis Take 1 tablet (81 mg total) by mouth daily 11 12/25/19 17 Active ergocalciferol (VITAMIN D) 50,000 unit capsuleIndication s:Monday Take 1 capsule (50,000 Units total) by mouth once a week Active albuterol (PROVENTIL,VENTOL IN) 2.5 mg /3 mL (0.083 %) nebulizer solution U 3 ML VIA NEB Q 4 H PRN 1 02/17/20 17 Active insulin glargine (BASAGLAR) 100 unit/mL (3 mL) pen for injection Inject 32 units under the skin nightly 30 mL 1 08/29/19 21 Active Additional Information Patient taking differently: 32 Units subcutaneous Nightly, Inject 32 units under the skin nightly, Indications: type 2 diabetes mellitus, Reported on 12/16/2021 ipratropium-albut Caleb (DUO-NEB) 0.5-2.5 mg/3 mL nebulizer solutionIndicatio ns:Chronic Obstructive Pulmonary Disease with Bronchospasms Take 3 mL by nebulization every 6 (six) hours 180 mL 1 10/13/19 21 Active traMADoL (ULTRAM) 50 mg tablet TAKE 1-2 TABLETS BY MOUTH WITH OTC TYLEONOL THREE TIMES DAILY NEEDED FOR PAIN 10/28/19 22 Active nitroglycerin (NITROSTAT) 0.4 mg SL tabletIndications :acute episode of anginal pain Place 1 tablet (0.4 mg total) under the tongue every 5 (five) minutes as needed for chest pain May repeat every 5 min, up to 3 doses. 25 tablet 3 12/17/19 22 Active insulin lispro (HumaLOG, ADMELOG) 100 unit/mL vial for injection 5 UNITS SUBCUTANEOUSLY 3 TIMES DAILY PRIOR TO MEALS IF BLOOD SUGAR > 150 09/08/19 24 Active isosorbide mononitrate ER (IMDUR) 60 mg 24 hr tabletIndications :Coronary artery disease of [place] artery of [place] heart with stable angina pectoris (HCC) TAKE 1 TABLET BY MOUTH EVERY DAY 90 tablet 3 01/17/20 24 Active ezetimibe (ZETIA) 10 mg tablet Take 1 tablet (10 mg total) by mouth daily 30 tablet 11 01/17/20 24 025 Active rosuvastatin (CRESTOR) 40 mg tablet TAKE 1 TABLET BY MOUTH EVERY DAY AT NIGHT 90 tablet 3 01/25/20 24 Active clopidogreL (PLAVIX) 75 mg tablet TAKE 1 TABLET BY MOUTH EVERY DAY 90 tablet 1 02/23/20 24 Active lisinopriL (PRINIVIL,ZESTRIL ) 5 mg tablet TAKE 1 TABLET (5 MG TOTAL) BY MOUTH DAILY. 90 tablet 1 02/23/20 24 Active carvediloL (COREG) 3.125 mg tablet Take 1 tablet (3.125 mg total) by mouth 2 (two) times a day with meals 180 tablet 1 05/06/19 25 Active Active Problems Problem Noted Date Diagnosed Date COPD exacerbation (CMS/HCC) 10/10/2020 Acute on chronic respiratory failure with hypoxe brian 10/10/2020 Pancreatic cyst 03/23/2020 Type 2 diabetes mellitus wit h hyperglycemia, with long-term current use of insulin 03/16/2020 Assessment & Plan (03/16/2020 2:22 PM ASSESSMENT EXPERT): Diagnosed in 2013- Had recurrent pancreatitis. Started insulin 2019 Did not tolerate Metformin Had side effects from Invokana. Control : reasonable control She is having memory problems affecting her compliance. A1c 7.1% on 03/16/20 A1c 7.5% on 02/21/19. A1c 7.9% on 11/07/18. A1c 8.9% on 07/10/18 Kidney: normal GFR in April/2019 Neuropathy : Symptomatic on gabapentin. Plan: Continue diet plan- eat 2-3 meals /day and suggested Stressed on compliance with medication. increase lantus insulin 32 U Qhs. Continue Glipizide to 2.5 mg bid. Monitor sugars 3 x per day. Consider adding pre-meal insulin based on results. Hypoglycemia symptoms and treatment reviewed with patient. Call if having low sugars. Ophthalmology exam on regular basis. Essential hypertension 03/16/2020 Assessment & Plan (03/16/2020 2:23 PM ASSESSMENT EXPERT): Complicated with CAD Controlled with medication - continue medication per PCP Fatty liver disease, nonalcoholic 11/12/2018 Assessment & Plan (12/11/2018 5:11 PM CDT): Discussed with the patient diet and weight loss. Control weight and fat intake I think will be helpful to prevent further episodes of pancreatitis in the future. Assessment & Plan (11/12/2018 5:28 PM CDT): This is another consequence of her hyperlipidemia and diabetes and obesity. Again discussed with the patient starting fish oil, continue metformin, engage in exercise and weight loss program. Recurrent pancreatitis 11/02/2018 Overview (11/02/2018): Added automatically from request for surgery [id number] Assessment & Plan (12/11/2018 5:10 PM CDT): No sign of activity at this time. Endoscopic ultrasound of the pancreas showed small cysts in the pancreas but otherwise unremarkable. Assessment & Plan (11/12/2018 5:16 PM CDT): Discussed with the patient to start fish oil and maintain low-fat diet and stop smoking. Will refer the patient for endoscopic ultrasound of the pancreas. Follow-up in 6 weeks. COPD (chronic obstructive pulmonary disease) Fibromyalgia 07/10/2018 Rheumatoid arthritis 07/10/2018 Ingrown right greater toenail 06/12/2015 Diabetic polyneuropathy asso ciated with type 2 diabetes mellitus ([facility]) 06/12/2015 Assessment & Plan (09/20/2019 2:50 PM CDT): Condition is stable, controlled, Labs reviewed. Diagnosed in 2013- Had recurrent pancreatitis. Started insulin 2018 Did not tolerate Metformin Had side effects from Invokana. Medication- continue Lantus 30 units daily at hs, decrease glipizide to 2.5 mg twice a day at breakfast and lunch. Surveillance of Diabetes complications protective sensation to feet intact- on lyrica. BP today- 120/60 , currently on lisinopril 5mg daily LDL - 84, 04/2019 - lipitor 80 mg daily history of macrovascular disease - CAD. Eye exam - 01/2019 Results for ALBERTO STEIN ( ) as of 09/20/2019 14:37 Ref. Range 12/22/2016 03:05 04/06/2017 12:04 04/07/2017 06:15 09/21/2017 11:44 GFR Latest Units: mL/min/1.73 m2 56 65 74 >60 Patient Education Encouraged to eat a healthy low carb diet, include fresh fruits and vegetables daily. Encouraged to try moving at least a total of 30 minutes/day. Encouraged to wash, dry lotion and check feet daily. Instructed to notify office if blood sugars are less than 80 or greater than 250 for 3 days Coronary artery disease Tobacco abuse Social History Tobacco Use Types Packs/Day Years Used Date Smoking Tobacco: Every Day Cigarettes 0.8 50 Smokeless Tobacco: Never Tobacco Cessation:Ready to Q uit: Not Asked; Counseling Given: Not Answered Comments:2 Cigs a Day Alcohol Use Standard Drinks/Week Comments No 0 (1 standard drink = 0.6 oz pur e alcohol) AUDIT-C Answer Date Recorded Q1: How often do you have a drink containing alc ohol? Never 10/10/2020 Average Number of Drinks Not on file 021 Frequency of Binge Drinking Not on file 09/22 Personal Safety Answer Date Recorded Getting School Help Needed Not on file 04/19 Comments No Sex and Gender Information Value Date Recorded Sex Assigned at Not on file Legal Sex Female 1:49 PM ASSESSMENT EXPERT Gender Identity Not on file Sexual Orientation Not on file Last Filed Vital Signs Vital Sign Reading Time Taken Comments Blood Pressure 120/80 01/17/2024 8:40 AM CDT Pulse 71 01/17/2024 8:40 AM CDT Temperature 37.1 C (98.8 F) 09/10/2021 7:15 PM CDT Respiratory Rate 21 09/10/2021 8:55 PM CDT Oxygen Saturation 97% 01/17/2024 8:40 AM CDT Inhaled Oxygen Concentration - - Weight 86 kg (189 lb 9.6 oz) 01/17/2024 8:40 AM CDT Height 160 cm (5' 3 ) 01/17/2024 8:40 AM CDT Body Mass Index 33.59 01/17/2024 8:40 AM CDT Plan of Treatment Not on file Medical Devices Implanted Type Area Postage Machine Operator Device Identifier Shelf Expiration Date Model / Serial / Lot System Coronary Stent Synergy Pebax Everolimus Eluting [place] Chromium Plga L12 Mm L144 Cm Od2.25 Mm Radiopaque 1 Access Port Inflation Lumen Accepts .014 In Guidewire - [id number] Implanted:Qty: 1 on 04/06/2017 by Karan Ngo MD at [facility] [employer] [facility] 12/19/2017 [id number] / / [id number] Procedures Procedure Name Priority Date/Time Associated Diagnosis Comments POCT LIPID PANEL Routine 12/05/2023 11:2 5 AM CDT Lipid screening EGFR STAT 09/10/2021 3:31 PM CDT POCT HEMOGLOBIN A1C Routine 03/16/2020 2 :10 PM ASSESSMENT EXPERT Type 2 diabetes mellitus with hyperglycemia, with long-term current use of insulin ([facility]) DIABETES EYE EXAM Routine 02/06/2019 from Last 3 Months or Most Recently Relevant to Health Maintenance Results * POCT lipid panel (12/05/2023 11:25 AM CDT) Cholesterol, POC 100 mg/dL HDL, POC 18 mg/dL Triglycerides, POC 157 mg/dL LDL Cholesterol POC 59 mg/dL Chol/HDL Ratio, POC - Non-HDL Cholesterol, POC - mg/dL Cholesterol Total, POC 100 mg/dL Capillary blood 12/05/2023 1 1:25 AM CDT us Marta Concepcion NP POINT OF CARE TEST ORDERA BLES Final Result * eGFR (09/10/2021 3:31 PM CDT) eGFR 78 mL/min/1. 73 m2 [place]IN CUELLAR (ANISH) Comment: Interpretive Data Reference Interval Normal >/= 90 mL/min/1.73m2 Mildly decreased* 60 - 89 mL/min/1.73m2 Mildly to moderately decreased 45 - 59 mL/min/1.73m2 Moderately to severely decreased 30 - 44 mL/min/1.73m2 Severely decreased 15 - 29 mL/min/1.73m2 Kidney Failure < 15 mL/min/1.73m2 *Relative to young adult level Estimated glomerular filtration rate is determined by the 2020 CKD-EPI equation recommended by the National Kidney Foundation (A Unifying Approach to GFR Estimation: Recommendations of the NKF-ASK Task Force on Reassessing the Inclusion of Race in Diagnosing Kidney Disease, JASN 2020). The CKD-EPI equation should not be used for patients with unstable renal function and has not been validated in children and those over 70. Current interpretive data was last reviewed 2021. Blood 09/10/2021 3:31 PM CDT 09/10/2021 3:44 PM CDT Brenda Mast MD LAB BLOOD ORDERABLES Tanika gildardo Result [facility] ([place]) [facility] Department [place] [address] * POCT hemoglobin A1c (03/16/2020 2:10 PM ASSESSMENT EXPERT) Hemoglobin A1C, POC 7.1 Blood specimen (specimen) 03/16/2020 2:10 PM ASSESSMENT EXPERT Abena Ronquillo MD POINT OF CARE TEST ORDERABLES Final Result * DIABETES EYE EXAM (02/06/2019) Diabetic Eye Exam Unknown Historical Provider MD HEALTH MAINTENANCE Final Result from Last 3 Months or Most Recently Relevant to Health Maintenance Insurance MEDICARE SOLUTIONS Advance Directives For more information, please contact: [phone] * Full Code (Latest Code Status on File) Date Activated Date Inactivated Comments 10/10/2020 6:56 PM 10/12/2020 5:57 PM * Full Code Date Activated Date Inactivated Comments 11/30/2018 7:41 AM 11/30/2018 1:32 PM * Full Code Date Activated Date Inactivated Comments 04/06/2017 3:48 PM 04/07/2017 2:06 PM Care Teams Proc Tech Relationship Specialty Start Date End Date Rohith Sen MD [address] [id number] PCP - General Family Practice 12/05/23 Karan Ngo MD [address] [id number] Consulting Physician Cardiology 11/02/18
--- OUTSIDE RECORDS SUMMARY | 2024-06-13 12:32 | XMS_ITS | Data Portability ---
Author Organization [facility] Downstream, Main Office Address [address] [place] [address] Care Team Providers Care Information Security Engineer Name Role Phone TIMOTHY LOVELL Primary Care Provider [phone] Assessment No assessment recorded. Plan of Treatment Reminders Order Date Submit Date Provider Last Modified By Organization Details Last Modified Time Details Appointments None recorded. Lab cortisol, am, serum 2022 023 [facility] [facility], [address], [place], [address], 3 15:23:09 dexamethaso ne, serum 2022 023 [facility], [address], [place], [address], 3 15:23:07 microalbumi n/creatinin e, mass ratio, urine 2022 023 [facility], [address], [place], [address], 3 15:23:07 CMP, serum or plasma 2022 023 [email or web address] [facility], [address], [place], [address], 3 15:23:06 HbA1c (hemoglobin A1c), blood 2022 023 [facility], [address], [place], [address], 3 15:23:10 lipid panel, serum 2022 023 [email or web address] [facility], [address], [place], [address], 3 15:23:05 TSH, serum or plasma 2022 023 [email or web address] [facility], [address], [place], [address], 3 15:23:08 T4, free, serum 2022 023 [employer] [facility], [address], [place], [address], 3 15:23:08 Referral None recorded. Procedures None recorded. Surgeries None recorded. Imaging bone density [address] [facility] (Im[facility]), [address] [place] [address], [address], 3 18:06:42 Medication Orders dexamethaso ne 1 mg tablet 2022 023 [id number], [address] [place], [address], 3 15:14:07 Patient TargetsNo targets recorded. Patient InstructionsNo instructions recorded. Reason for Referral None Reported. Results Created Date Observation Date Name Description Value Unit Range Abnormal Flag Note LastModifiedBy Organization Detail LastModifiedTime 06/09/1906/10/2021 HEMOG LOBIN A1C hemoglobin A1C 7.6 %_of_ total _HGB <5.7 high For someo ne witho ut known diabe abby, a hemog lobin A1c value of 6.5% or great er indic ates that they may have diabe abby and this shoul d be confi rmed with a follo w-up test. For someo ne with known diabe abby, a value <7% indic ates that their diabe abby is well contr olled and a value great er than or equal to 7% indic ates subop timal contr ol. A1c targe ts shoul d be indiv idual ized based on durat ion of diabe abby, age, comor bid condi tions , and other consi derat ions. Curre ntly, no conse nsus exist s maria fernanda bose use of hemog lobin A1c for diagn osis of diabe abby for child adebayo. Not Available [address] [place], [address], 06/10/2021 12:18:35 06/09/19 22 06/10/2021 TSH+F REE T4 TSH 2.16 mIU/L 0.40-4 .50 normal Not Available [address] [place], [address], 06/10/2021 12:18:34 06/09/19 22 06/10/2021 TSH+F REE T4 T4, free 1.2 NG/dL 0.8-1. 8 normal Not Available [address] [address] [place], [address], 06/10/2021 12:18:34 06/09/19 22 06/10/2021 ALBUM IN, RANDO M URINE W/CRE ATINI NE creatinine, random urine 74 mg/dL 20-275 normal Not Available [address] [address] [place], [address], 06/10/2021 12:18:33 06/09/19 22 06/10/2021 ALBUM IN, RANDO M URINE W/CRE ATINI NE albumin, urine 0.2 mg/dL see note: normal Refer ence Range : Refer ence Range Not estab lishe d Not Available [address] [address] [place], [address], 06/10/2021 12:18:33 06/09/19 22 06/10/2021 ALBUM IN, RANDO M URINE W/CRE ATINI NE albumin/crea tinine ratio, random urine 3 mcg/m g_cre at <30 normal The ADA defin es abnor malit ies in album in excre tion as follo ws: Album inuri a Categ ory Resul t (mcg/ mg creat inine ) Sandrita l to Mildl y incre ased <30 Moder ately incre ased 30-29 9 Sever jose incre ased > OR = 300 The ADA recom mends that at least two of three speci mens colle cted withi n a 3-6 month perio d be abnor mal befor e consi alondra g a patie nt to be withi n a diagn ostic categ ory. Not Available [facility] [address] [address] [place], [address], 06/10/2021 12:18:33 06/09/19 22 06/10/2021 COMPR EHENS ABBY METAB OLIC PANEL glucose 166 mg/dL 65-99 high Fasti ng refer ence inter aiden For someo ne witho ut known diabe abby, a gluco se value >125 mg/dL indic ates that they may have diabe abby and this shoul d be confi rmed with a follo w-up test. Not Available [facility] [address] [place], [address], 06/10/2021 12:18:32 06/09/19 22 06/10/2021 COMPR EHENS ABBY METAB OLIC PANEL urea nitrogen (BUN) 17 mg/dL 7-25 normal Not Available [facility] [address] [address] [place], [address], 06/10/2021 12:18:32 06/09/19 22 06/10/2021 COMPR EHENS ABBY METAB OLIC PANEL creatinine 1.14 mg/dL 0.50-0 .99 high For patie nts >49 years of age, the refer ence limit for Creat inine is appro ximat jose 13% highe r for peopl e ident ified as Afric an-Am jailyn n. Not Available [facility] [address] [place], [address], 06/10/2021 12:18:32 06/09/19 22 06/10/2021 COMPR EHENS ABBY METAB OLIC PANEL eGFR non-afr. citizen of [place] 51 mL/mi n/1.7 3m2 > or = 60 low Not Available [address], [address], 06/10/2021 12:18:32 06/09/19 22 06/10/2021 COMPR EHENS ABBY METAB OLIC PANEL eGFR 59 mL/mi n/1.7 3m2 > or = 60 low Not Available [address], [address], 06/10/2021 12:18:32 06/09/19 22 06/10/2021 COMPR EHENS ABBY METAB OLIC PANEL BUN/creatini ne ratio 15 (calc ) 6-22 normal Not Available [address], [address], 06/10/2021 12:18:32 06/09/19 22 06/10/2021 COMPR EHENS ABBY METAB OLIC PANEL sodium 139 mmol/ L 135-14 6 normal Not Available [address], [address], 06/10/2021 12:18:32 06/09/19 22 06/10/2021 COMPR EHENS ABBY METAB OLIC PANEL potassium 4.4 mmol/ L 3.5-5. 3 normal Not Available [address], [address], 06/10/2021 12:18:32 06/09/19 22 06/10/2021 COMPR EHENS ABBY METAB OLIC PANEL chloride 103 mmol/ L 98-110 normal Not Available [address], [address], 06/10/2021 12:18:32 06/09/19 22 06/10/2021 COMPR EHENS ABBY METAB OLIC PANEL carbon dioxide 25 mmol/ L 20-32 normal Not Available [address], [address], 06/10/2021 12:18:32 06/09/19 22 06/10/2021 COMPR EHENS ABBY METAB OLIC PANEL calcium 9.7 mg/dL 8.6-10 .4 normal Not Available [address], [address], 06/10/2021 12:18:32 06/09/19 22 06/10/2021 COMPR EHENS ABBY METAB OLIC PANEL protein, total 7.3 g/dL 6.1-8. 1 normal Not Available [address], [address], 06/10/2021 12:18:32 06/09/19 22 06/10/2021 COMPR EHENS ABBY METAB OLIC PANEL albumin 4.7 g/dL 3.6-5. 1 normal Not Available [address], [address], 06/10/2021 12:18:32 06/09/19 22 06/10/2021 COMPR EHENS ABBY METAB OLIC PANEL globulin 2.6 g/dL_ (calc ) 1.9-3. 7 normal Not Available [address], [address], 06/10/2021 12:18:32 06/09/19 22 06/10/2021 COMPR EHENS ABBY METAB OLIC PANEL albumin/glob ulin ratio 1.8 (calc ) 1.0-2. 5 normal Not Available [address], [address], 06/10/2021 12:18:32 06/09/19 22 06/10/2021 COMPR EHENS ABBY METAB OLIC PANEL bilirubin, total 0.4 mg/dL 0.2-1. 2 normal Not Available [address], [address], 06/10/2021 12:18:32 06/09/19 22 06/10/2021 COMPR EHENS ABBY METAB OLIC PANEL alkaline phosphatase 95 U/L 37-153 normal Not Available [facility] [address] [address] [place], [address], 06/10/2021 12:18:32 06/09/19 22 06/10/2021 COMPR EHENS ABBY METAB OLIC PANEL AST 19 U/L 10-35 normal Not Available [address], [address], 06/10/2021 12:18:32 06/09/19 22 06/10/2021 COMPR EHENS ABBY METAB OLIC PANEL ALT 22 U/L 6-29 normal Not Available [address], [address], 06/10/2021 12:18:32 06/09/19 22 06/10/2021 LIPID PANEL , STAND JOSE ENRIQUE cholesterol, total 215 mg/dL <200 high Not Available [address], [address], 06/10/2021 12:18:32 06/09/19 22 06/10/2021 LIPID PANEL , STAND JOSE ENRIQUE HDL cholesterol 51 mg/dL > or = 50 normal Not Available [address], [address], 06/10/2021 12:18:32 06/09/19 22 06/10/2021 LIPID PANEL , STAND JOSE ENRIQUE triglyceride s 223 mg/dL <150 high If a non-f astin g speci men was colle cted, consi dheeraj repea t trigl yceri de testi ng on a fasti ng speci men if clini sam indic ated. Abhishek amezquita et al. J. of Clin. Lipid ol. 2015; 9:129 -169. Not Available [address] [place], [address], 06/10/2021 12:18:32 06/09/19 22 06/10/2021 LIPID PANEL , STAND JOSE ENRIQUE LDL-choleste rol 128 mg/dL _(roxie c) high Refer ence range : <100 Kaushik able range <100 mg/dL for prima ry preve ntion ; <70 mg/dL for patie nts with CHD or diabe tic patie nts with > or = 2 CHD risk facto rs. LDL-C is now calcu lated using the Dee n-Hop kins calcu latio n, which is a valid ated novel metho d provi juice murillo r accur acy than the Fried reina equat ion in the estim ation of LDL-C . Dee cruz SS et al. FREDDY. 2013; 310(1 9): 2061- 2068 (http ://ed ucati on.Zaiseoul. com/f aq/FA Q164) Not Available [facility] [address] [address] [address], [place], [address], 06/10/2021 12:18:32 06/09/19 22 06/10/2021 LIPID PANEL , STAND JOSE ENRIQUE chol/HDLC ratio 4.2 (calc ) <5.0 normal Not Available [facility] [address] [address], [place], [address], 06/10/2021 12:18:32 06/09/19 22 06/10/2021 LIPID PANEL , STAND JOSE ENRIQUE non HDL cholesterol 164 mg/dL _(roxie c) <130 high For patie nts with diabe abby plus 1 major ASCVD risk facto r, treat ing to a non-H DL-C goal of <100 mg/dL (LDL- C of <70 mg/dL ) is puneet stafford optio n. Not Available [facility] [address] [address], [place], [address], 06/10/2021 12:18:32 10/29/19 22 10/29/2021 HEMOG LOBIN A1C hemoglobin A1C 7.5 %_of_ total _HGB <5.7 high For someo ne witho ut known diabe abby, a hemog lobin A1c value of 6.5% or great er indic ates that they may have diabe abby and this shoul d be confi rmed with a follo w-up test. For someo ne with known diabe abby, a value <7% indic ates that their diabe abby is well contr olled and a value great er than or equal to 7% indic ates subop timal contr ol. A1c targe ts shoul d be indiv idual ized based on durat ion of diabe abby, age, comor bid condi tions , and other consi derat ions. Curre ntly, no conse nsus exist s maria fernanda ding use of hemog lobin A1c for diagn osis of diabe abby for child adebayo. Not Available [address], [address], 10/29/2021 12:12:32 10/29/19 22 10/29/2021 TSH+F REE T4 TSH 1.43 mIU/L 0.40-4 .50 normal Not Available [address], [address], 10/29/2021 12:12:32 10/29/19 22 10/29/2021 TSH+F REE T4 T4, free 0.9 NG/dL 0.8-1. 8 normal Not Available [address], [address], 10/29/2021 12:12:32 10/29/19 22 10/29/2021 ALBUM IN, RANDO M URINE W/CRE ATINI NE creatinine, random urine 79 mg/dL 20-275 normal Not Available [address], [address], 10/29/2021 12:12:31 10/29/19 22 10/29/2021 ALBUM IN, RANDO M URINE W/CRE ATINI NE albumin, urine 1.1 mg/dL see note: normal Refer ence Range : Refer ence Range Not estab lishe d Not Available [address], [address], 10/29/2021 12:12:31 10/29/19 22 10/29/2021 ALBUM IN, RANDO M URINE W/CRE ATINI NE albumin/crea tinine ratio, random urine 14 mcg/m g_cre at <30 normal The ADA defin es abnor malit ies in album in excre tion as follo ws: Album inuri a Categ ory Resul t (mcg/ mg creat inine ) Sandrita l to Mildl y incre ased <30 Moder ately incre ased 30-29 9 Sever jose incre ased > OR = 300 The ADA recom mends that at least two of three speci mens colle cted withi n a 3-6 month perio d be abnor mal befor e consi alondra g a patie nt to be withi n a diagn ostic categ ory. Not Available [address] [place], [address], 10/29/2021 12:12:31 10/29/19 22 10/29/2021 COMPR EHENS ABBY METAB OLIC PANEL glucose 87 mg/dL 65-99 normal Fasti ng refer ence inter aiden Not Available [address], [address], 10/29/2021 12:12:31 10/29/19 22 10/29/2021 COMPR EHENS ABBY METAB OLIC PANEL urea nitrogen (BUN) 9 mg/dL 7-25 normal Not Available [facility] [address] [place], [address], 10/29/2021 12:12:31 10/29/19 22 10/29/2021 COMPR EHENS ABBY METAB OLIC PANEL creatinine 0.91 mg/dL 0.50-0 .99 normal For patie nts >49 years of age, the refer ence limit for Creat inine is appro ximat jose 13% highe r for peopl e ident ified as Afric an-Am jailyn n. Not Available [address], [address], 10/29/2021 12:12:31 10/29/19 22 10/29/2021 COMPR EHENS ABBY METAB OLIC PANEL eGFR non-afr. citizen of [place] 67 mL/mi n/1.7 3m2 > or = 60 normal Not Available [address], [address], 10/29/2021 12:12:31 10/29/19 22 10/29/2021 COMPR EHENS ABBY METAB OLIC PANEL eGFR 77 mL/mi n/1.7 3m2 > or = 60 normal Not Available [address], [address], 10/29/2021 12:12:31 10/29/19 22 10/29/2021 COMPR EHENS ABBY METAB OLIC PANEL BUN/creatini ne ratio not applic able (calc ) 6-22 Not Available [address], [address], 10/29/2021 12:12:31 10/29/19 22 10/29/2021 COMPR EHENS ABBY METAB OLIC PANEL sodium 143 mmol/ L 135-14 6 normal Not Available [address], [address], 10/29/2021 12:12:31 10/29/19 22 10/29/2021 COMPR EHENS ABBY METAB OLIC PANEL potassium 4.3 mmol/ L 3.5-5. 3 normal Not Available [address], [address], 10/29/2021 12:12:31 10/29/19 22 10/29/2021 COMPR EHENS ABBY METAB OLIC PANEL chloride 105 mmol/ L 98-110 normal Not Available [address], [address], 10/29/2021 12:12:31 10/29/19 22 10/29/2021 COMPR EHENS ABBY METAB OLIC PANEL carbon dioxide 31 mmol/ L 20-32 normal Not Available [address], [address], 10/29/2021 12:12:31 10/29/19 22 10/29/2021 COMPR EHENS ABBY METAB OLIC PANEL calcium 9.6 mg/dL 8.6-10 .4 normal Not Available [address], [address], 10/29/2021 12:12:31 10/29/19 22 10/29/2021 COMPR EHENS ABBY METAB OLIC PANEL protein, total 6.8 g/dL 6.1-8. 1 normal Not Available [address], [address], 10/29/2021 12:12:31 10/29/19 22 10/29/2021 COMPR EHENS ABBY METAB OLIC PANEL albumin 4.2 g/dL 3.6-5. 1 normal Not Available [address], [address], 10/29/2021 12:12:31 10/29/19 22 10/29/2021 COMPR EHENS ABBY METAB OLIC PANEL globulin 2.6 g/dL_ (calc ) 1.9-3. 7 normal Not Available [address], [address], 10/29/2021 12:12:31 10/29/19 22 10/29/2021 COMPR EHENS ABBY METAB OLIC PANEL albumin/glob ulin ratio 1.6 (calc ) 1.0-2. 5 normal Not Available [address], [address], 10/29/2021 12:12:31 10/29/19 22 10/29/2021 COMPR EHENS ABBY METAB OLIC PANEL bilirubin, total 0.5 mg/dL 0.2-1. 2 normal Not Available [address], [address], 10/29/2021 12:12:31 10/29/19 22 10/29/2021 COMPR EHENS ABBY METAB OLIC PANEL alkaline phosphatase 99 U/L 37-153 normal Not Available [address], [address], 10/29/2021 12:12:31 10/29/19 22 10/29/2021 COMPR EHENS ABBY METAB OLIC PANEL AST 18 U/L 10-35 normal Not Available [address], [address], 10/29/2021 12:12:31 10/29/19 22 10/29/2021 COMPR EHENS ABBY METAB OLIC PANEL ALT 15 U/L 6-29 normal Not Available [address], [address], 10/29/2021 12:12:31 10/29/19 22 10/29/2021 LIPID PANEL , STAND JOSE ENRIQUE cholesterol, total 160 mg/dL <200 normal Not Available [address], [address], 10/29/2021 12:12:30 10/29/19 22 10/29/2021 LIPID PANEL , STAND JOSE ENRIQUE HDL cholesterol 49 mg/dL > or = 50 low Not Available [address], [address], 10/29/2021 12:12:30 10/29/19 22 10/29/2021 LIPID PANEL , STAND JOSE ENRIQUE triglyceride s 266 mg/dL <150 high If a non-f astin g speci men was colle cted, consi dheeraj repea t trigl yceri de testi ng on a fasti ng speci men if clini sam indic ated. Abhishek amezquita et al. J. of Clin. Lipid ol. 2015; 9:129 -169. Not Available [facility] [address] [place] [address], [address], 10/29/2021 12:12:30 10/29/19 22 10/29/2021 LIPID PANEL , STAND JOSE ENRIQUE LDL-choleste rol 76 mg/dL _(roxie c) normal Refer ence range : <100 Kaushik able range <100 mg/dL for prima ry preve ntion ; <70 mg/dL for patie nts with CHD or diabe tic patie nts with > or = 2 CHD risk facto rs. LDL-C is now calcu lated using the Dee n-Hop kins calcu denzel n, which is a valid ated novel metho d provi ding lidia r accur acy than the Fried reina equat ion in the estim ation of LDL-C . Dee cruz SS et al. FREDDY. 2013; 310(1 9): 2061- 2068 (http ://ed ucati on.Zaiseoul. com/f aq/FA Q164) Not Available [facility] [address] [place], [address], 10/29/2021 12:12:30 10/29/19 22 10/29/2021 LIPID PANEL , STAND JOSE ENRIQUE chol/HDLC ratio 3.3 (calc ) <5.0 normal Not Available [facility] [address] [address] [place], [address], 10/29/2021 12:12:30 10/29/19 22 10/29/2021 LIPID PANEL , STAND JOSE ENRIQUE non HDL cholesterol 111 mg/dL _(roxie c) <130 normal For patie nts with diabe abby plus 1 major ASCVD risk facto r, treat ing to a non-H DL-C goal of <100 mg/dL (LDL- C of <70 mg/dL ) is consi dered a thera peuti c optio n. Not Available [facility] [address] [place], [address], 10/29/2021 12:12:30 02/26/2002/26/2022 HEMOG LOBIN A1C hemoglobin A1C 6.8 %_of_ total _HGB <5.7 high For someo ne witho ut known diabe abby, a hemog lobin A1c value of 6.5% or great er indic ates that they may have diabe abby and this shoul d be confi rmed with a follo w-up test. For someo ne with known diabe abby, a value <7% indic ates that their diabe abby is well contr olled and a value great er than or equal to 7% indic ates subop timal contr ol. A1c targe ts shoul d be indiv idual ized based on durat ion of diabe abby, age, comor bid condi tions , and other consi derat ions. Curre ntly, no conse nsus exist s maria fernanda bose use of hemog lobin A1c for diagn osis of diabe abby for child adebayo. Not Available [address] [place], [address], 02/26/2022 15:45:07 02/26/20 22 02/26/2022 TSH TSH 3.04 mIU/L 0.40-4 .50 normal Not Available [facility] [address] [address] [place], [address], 02/26/2022 15:45:07 02/26/20 22 02/26/2022 T4, FREE T4, free 1.1 NG/dL 0.8-1. 8 normal Not Available [facility] [address] [address] [place], [address], 02/26/2022 15:45:06 02/26/20 22 02/26/2022 ALBUM IN, RANDO M URINE W/CRE ATINI NE creatinine, random urine 67 mg/dL 20-275 normal Not Available [address] [address] [place], [address], 02/26/2022 15:45:06 02/26/20 22 02/26/2022 ALBUM IN, RANDO M URINE W/CRE ATINI NE albumin, urine 0.2 mg/dL see note: normal Refer ence Range : Refer ence Range Not estab lishe d Not Available [facility] [address] [address] [address], [place], [address], 02/26/2022 15:45:06 02/26/20 22 02/26/2022 ALBUM IN, RANDO M URINE W/CRE ATINI NE albumin/crea tinine ratio, random urine 3 mcg/m g_cre at <30 normal The ADA defin es abnor malit ies in album in excre tion as follo ws: Album inuri a Categ ory Resul t (mcg/ mg creat inine ) Sandrita l to Mildl y incre ased <30 Moder ately incre ased 30-29 9 Sever jose incre ased > OR = 300 The ADA recom mends that at least two of three speci mens colle cted withi n a 3-6 month perio d be abnor mal befor e consi alondra g a patie nt to be withi n a diagn ostic categ ory. Not Available [facility] [address] [address] [facility] [place], [address], 02/26/2022 15:45:06 02/26/20 22 02/26/2022 COMPR EHENS ABBY METAB OLIC PANEL glucose 121 mg/dL 65-99 high Fasti ng refer ence inter aiden For someo ne witho ut known diabe abby, a gluco se value betwe en 100 and 125 mg/dL is consi stent with predi abete s and shoul d be confi rmed with a follo w-up test. Not Available [facility] [address] [address] , [place], [address], 02/26/2022 15:45:05 02/26/20 22 02/26/2022 COMPR EHENS ABBY METAB OLIC PANEL urea nitrogen (BUN) 12 mg/dL 7-25 normal Not Available [address] [address] [place], [address], 02/26/2022 15:45:05 02/26/20 22 02/26/2022 COMPR EHENS ABBY METAB OLIC PANEL creatinine 0.83 mg/dL 0.50-1 .05 normal Not Available [address] [address] [place], [address], 02/26/2022 15:45:05 02/26/20 22 02/26/2022 COMPR EHENS ABBY METAB OLIC PANEL eGFR 78 mL/mi n/1.7 3m2 > or = 60 normal The eGFR is based on the CKD-E PI 2020 equat ion. To calcu late the new eGFR from a previ ous Creat inine or Cysta tin C resul t, go to https ://abimbola perez.ernie landeros/iris martin s/ kdoqi /gfr% 5Fcal culat or Not Available [address], [address], 02/26/2022 15:45:05 02/26/20 22 02/26/2022 COMPR EHENS ABBY METAB OLIC PANEL BUN/creatini ne ratio not applic able (calc ) 6-22 Not Available [address] [address] [place], [address], 02/26/2022 15:45:05 02/26/20 22 02/26/2022 COMPR EHENS ABBY METAB OLIC PANEL sodium 139 mmol/ L 135-14 6 normal Not Available [address], [address], 02/26/2022 15:45:05 02/26/20 22 02/26/2022 COMPR EHENS ABBY METAB OLIC PANEL potassium 4.5 mmol/ L 3.5-5. 3 normal Not Available [address] [address] [place], [address], 02/26/2022 15:45:05 02/26/20 22 02/26/2022 COMPR EHENS ABBY METAB OLIC PANEL chloride 103 mmol/ L 98-110 normal Not Available [address], [address], 02/26/2022 15:45:05 02/26/20 22 02/26/2022 COMPR EHENS ABBY METAB OLIC PANEL carbon dioxide 28 mmol/ L 20-32 normal Not Available [address], [address], 02/26/2022 15:45:05 02/26/20 22 02/26/2022 COMPR EHENS ABBY METAB OLIC PANEL calcium 9.4 mg/dL 8.6-10 .4 normal Not Available [address], [address], 02/26/2022 15:45:05 02/26/20 22 02/26/2022 COMPR EHENS ABBY METAB OLIC PANEL protein, total 6.7 g/dL 6.1-8. 1 normal Not Available [address], [address], 02/26/2022 15:45:05 02/26/20 22 02/26/2022 COMPR EHENS ABBY METAB OLIC PANEL albumin 4.0 g/dL 3.6-5. 1 normal Not Available [address], [address], 02/26/2022 15:45:05 02/26/20 22 02/26/2022 COMPR EHENS ABBY METAB OLIC PANEL globulin 2.7 g/dL_ (calc ) 1.9-3. 7 normal Not Available [address], [address], 02/26/2022 15:45:05 02/26/20 22 02/26/2022 COMPR EHENS ABBY METAB OLIC PANEL albumin/glob ulin ratio 1.5 (calc ) 1.0-2. 5 normal Not Available [address], [address], 02/26/2022 15:45:05 02/26/20 22 02/26/2022 COMPR EHENS ABBY METAB OLIC PANEL bilirubin, total 0.3 mg/dL 0.2-1. 2 normal Not Available [address], [address], 02/26/2022 15:45:05 02/26/20 22 02/26/2022 COMPR EHENS ABBY METAB OLIC PANEL alkaline phosphatase 90 U/L 37-153 normal Not Available [address], [address], 02/26/2022 15:45:05 02/26/20 22 02/26/2022 COMPR EHENS ABBY METAB OLIC PANEL AST 14 U/L 10-35 normal Not Available [address], [address], 02/26/2022 15:45:05 02/26/20 22 02/26/2022 COMPR EHENS ABBY METAB OLIC PANEL ALT 13 U/L 6-29 normal Not Available [address], [address], 02/26/2022 15:45:05 02/26/20 22 02/26/2022 LIPID PANEL , STAND JOSE ENRIQUE cholesterol, total 109 mg/dL <200 normal Not Available [address], [address], 02/26/2022 15:45:05 02/26/20 22 02/26/2022 LIPID PANEL , STAND JOSE ENRIQUE HDL cholesterol 34 mg/dL > or = 50 low Not Available [address], [address], 02/26/2022 15:45:05 02/26/20 22 02/26/2022 LIPID PANEL , STAND JOSE ENRIQUE triglyceride s 192 mg/dL <150 high Not Available [facility] [address] [place], [address], 02/26/2022 15:45:05 02/26/20 22 02/26/2022 LIPID PANEL , STAND JOSE ENRIQUE LDL-choleste rol 49 mg/dL _(roxie c) normal Refer ence range : <100 Kaushik able range <100 mg/dL for prima ry preve ntion ; <70 mg/dL for patie nts with CHD or diabe tic patie nts with > or = 2 CHD risk facto rs. LDL-C is now calcu lated using the Dee n-Hop kins calcu denzel n, which is a valid ated novel marcelao georgina cardenasi juice lidia r accur acy than the Fried reina equat ion in the estim ation of LDL-C . Dee cruz SS et al. FREDDY. 2013; 310(1 9): 2061- 2068 (http ://ed ucati on.Qu [employer]. com/f aq/FA Q164) Not Available [facility] [address] [place], [address], 02/26/2022 15:45:05 02/26/20 22 02/26/2022 LIPID PANEL , STAND JOSE ENRIQUE chol/HDLC ratio 3.2 (calc ) <5.0 normal Not Available [facility] [address] [place], [address], 02/26/2022 15:45:05 02/26/20 22 02/26/2022 LIPID PANEL , STAND OJSE ENRIQUE non HDL cholesterol 75 mg/dL _(roxie c) <130 normal For patie nts with diabe abby plus 1 major ASCVD risk facto r, treat ing to a non-H DL-C goal of <100 mg/dL (LDL- C of <70 mg/dL ) is consi dered a thera peuti c optio n. Not Available [facility] [address] [place], [address], 02/26/2022 15:45:05 09/03/19 23 09/14/2022 LIPID PANEL , STAND JOSE ENRIQUE cholesterol, total 130 mg/dL <200 normal Not Available [address], [address], 09/14/2022 15:23:05 09/03/19 23 09/14/2022 LIPID PANEL , STAND JOSE ENRIQUE HDL cholesterol 42 mg/dL > or = 50 low Not Available [address], [address], 09/14/2022 15:23:05 09/03/19 23 09/14/2022 LIPID PANEL , STAND JOSE ENRIQUE triglyceride s 150 mg/dL <150 high Not Available [address], [address], 09/14/2022 15:23:05 09/03/19 23 09/14/2022 LIPID PANEL , STAND JOSE ENRIQUE LDL-choleste rol 65 mg/dL _(roxie c) normal Refer ence range : <100 Kaushik able range <100 mg/dL for prima ry preve ntion ; <70 mg/dL for patie nts with CHD or diabe tic patie nts with > or = 2 CHD risk facto rs. LDL-C is now calcu lated using the Dee n-Hop kins calcu denzel n, which is a valid ated novel marcelao georgina murillo r accur acy than the Fried reina equat ion in the estim ation of LDL-C . Dee cruz SS et al. FREDDY. 2013; 310(1 9): 2061- 2068 (http ://ed ucati on.Qu Majo lopezBrandShield. com/f aq/FA Q164) Not Available [address], [address], 09/14/2022 15:23:05 09/03/19 23 09/14/2022 LIPID PANEL , STAND JOSE ENRIQUE chol/HDLC ratio 3.1 (calc ) <5.0 normal Not Available [address] [place], [address], 09/14/2022 15:23:05 09/03/19 23 09/14/2022 LIPID PANEL , STAND JOSE ENRIQUE non HDL cholesterol 88 mg/dL _(roxie c) <130 normal For patie nts with diabe abby plus 1 major ASCVD risk facto r, treat ing to a non-H DL-C goal of <100 mg/dL (LDL- C of <70 mg/dL ) is consi dered a thera peuti c optio n. Not Available [address] [address] [place], [address], 09/14/2022 15:23:05 09/03/19 23 09/14/2022 COMPR EHENS ABBY METAB OLIC PANEL glucose 258 mg/dL 65-99 high Fasti ng refer ence inter aiden For someo ne witho ut known diabe abby, a gluco se value >125 mg/dL indic ates that they may have diabe abby and this shoul d be confi rmed with a follo w-up test. Not Available [facility] [address] [place], [address], 09/14/2022 15:23:06 09/03/19 23 09/14/2022 COMPR EHENS ABBY METAB OLIC PANEL urea nitrogen (BUN) 11 mg/dL 7-25 normal Not Available [facility] [address] [place], [address], 09/14/2022 15:23:06 09/03/19 23 09/14/2022 COMPR EHENS ABBY METAB OLIC PANEL creatinine 0.87 mg/dL 0.50-1 .05 normal Not Available [facility] [address], [address], 09/14/2022 15:23:06 09/03/19 23 09/14/2022 COMPR EHENS ABBY METAB OLIC PANEL eGFR 74 mL/mi n/1.7 3m2 > or = 60 normal The eGFR is based on the CKD-E PI 2020 equat ion. To calcu late the new eGFR from a previ ous Creat inine or Cysta manan C resul t, go to https ://abimbola landeros/iris martin s/ kdoqi /gfr% 5Fcal culat or Not Available [address] [place], [address], 09/14/2022 15:23:06 09/03/19 23 09/14/2022 COMPR EHENS ABBY METAB OLIC PANEL BUN/creatini ne ratio NOT APPLIC ABLE (calc ) 6-22 Not Available [address], [address], 09/14/2022 15:23:06 09/03/19 23 09/14/2022 COMPR EHENS ABBY METAB OLIC PANEL sodium 138 mmol/ L 135-14 6 normal Not Available [address], [address], 09/14/2022 15:23:06 09/03/19 23 09/14/2022 COMPR EHENS ABBY METAB OLIC PANEL potassium 4.7 mmol/ L 3.5-5. 3 normal Not Available [address], [address], 09/14/2022 15:23:06 09/03/19 23 09/14/2022 COMPR EHENS ABBY METAB OLIC PANEL chloride 103 mmol/ L 98-110 normal Not Available [address], [address], 09/14/2022 15:23:06 09/03/19 23 09/14/2022 COMPR EHENS ABBY METAB OLIC PANEL carbon dioxide 28 mmol/ L 20-32 normal Not Available [address], [address], 09/14/2022 15:23:06 09/03/19 23 09/14/2022 COMPR EHENS ABBY METAB OLIC PANEL calcium 9.6 mg/dL 8.6-10 .4 normal Not Available [address], [address], 09/14/2022 15:23:06 09/03/19 23 09/14/2022 COMPR EHENS ABBY METAB OLIC PANEL protein, total 7.2 g/dL 6.1-8. 1 normal Not Available [address], [address], 09/14/2022 15:23:06 09/03/19 23 09/14/2022 COMPR EHENS ABBY METAB OLIC PANEL albumin 4.3 g/dL 3.6-5. 1 normal Not Available [address], [address], 09/14/2022 15:23:06 09/03/19 23 09/14/2022 COMPR EHENS ABBY METAB OLIC PANEL globulin 2.9 g/dL_ (calc ) 1.9-3. 7 normal Not Available [address], [address], 09/14/2022 15:23:06 09/03/19 23 09/14/2022 COMPR EHENS ABBY METAB OLIC PANEL albumin/glob ulin ratio 1.5 (calc ) 1.0-2. 5 normal Not Available [address], [address], 09/14/2022 15:23:06 09/03/19 23 09/14/2022 COMPR EHENS ABBY METAB OLIC PANEL bilirubin, total 0.4 mg/dL 0.2-1. 2 normal Not Available [address], [address], 09/14/2022 15:23:06 09/03/19 23 09/14/2022 COMPR EHENS ABBY METAB OLIC PANEL alkaline phosphatase 97 U/L 37-153 normal Not Available [address] [address] [place], [address], 09/14/2022 15:23:06 09/03/19 23 09/14/2022 COMPR EHENS ABBY METAB OLIC PANEL AST 11 U/L 10-35 normal Not Available [address] [address] [place], [address], 09/14/2022 15:23:06 09/03/19 23 09/14/2022 COMPR EHENS ABBY METAB OLIC PANEL ALT 12 U/L 6-29 normal Not Available [address] [address] [place], [address], 09/14/2022 15:23:06 09/03/19 23 09/14/2022 ALBUM IN, RANDO M URINE W/CRE ATINI NE creatinine, random urine 21 mg/dL 20-275 normal Not Available [address] [address] [place], [address], 09/14/2022 15:23:06 09/03/19 23 09/14/2022 ALBUM IN, RANDO M URINE W/CRE ATINI NE albumin, urine <0.2 mg/dL see note: normal Refer ence Range : Refer ence Range Not estab lishe d Not Available [address], [address], 09/14/2022 15:23:06 09/03/19 23 09/14/2022 ALBUM IN, RANDO M URINE W/CRE ATINI NE albumin/crea tinine ratio, random urine NOTE mcg/m g_cre at <30 normal NOTE: The urine album in value is less than 0.2 mg/dL there fore we are unabl e to calcu late excre tion and/o r creat inine ratio . The ADA defin es abnor malit ies in album in excre tion as follo ws: Album inuri a Categ ory Resul t (mcg/ mg creat inine ) Sandrita l to Mildl y incre ased <30 Moder ately incre ased 30-29 9 Sever jose incre ased > OR = 300 The ADA recom mends that at least two of three speci mens colle cted withi n a 3-6 month perio d be abnor mal befor e consi alondra g a patie nt to be withi n a diagn ostic categ ory. Not Available [facility] [address] [place], [address], 09/14/2022 15:23:06 09/03/1909/14/2022 DEXAM ETHAS ONE dexamethason e 986 NG/dL Refer ence Range s for Dexam ethas one: Basel ine: Less than 20 ng/dL 1 mg dexam ethas one overn ight: 180-5 50 ng/dL (8:00 -10:0 0 AM) This test was devel oped and its diaz tical perfo rmanc e evgeny cteri stics have been deter mined by [facility] Daniel Salmeron tranernie . It has not been clear ed or appro millicent by FDA. This assay has been valid ated pursu ant to the CLIA regul ation s and is used for clini roxie purpo ses. Not Available [facility] [address] [address] [place], [address], 09/14/2022 15:23:07 09/03/1909/14/2022 T4, FREE T4, free 0.9 NG/dL 0.8-1. 8 normal Not Available [facility] [address] [address] [place], [address], 09/14/2022 15:23:08 09/03/1909/14/2022 TSH TSH 0.81 mIU/L 0.40-4 .50 normal Not Available [facility] [address] [address] [place], [address], 09/14/2022 15:23:08 09/03/1909/14/2022 CORTI NERI, A.M. cortisol, A.M. 1.4 mcg/d L low Refer ence Range 8 a.m. (7-9 a.m.) Speci men: 4.0-2 2.0 Not Available [address] [address] [place], [address], 09/14/2022 15:23:09 09/03/19 23 09/14/2022 HEMOG LOBIN A1C hemoglobin A1C 7.2 %_of_ total _HGB <5.7 high For someo ne witho ut known diabe abby, a hemog lobin A1c value of 6.5% or great er indic ates that they may have diabe abby and this shoul d be confi rmed with a follo w-up test. For someo ne with known diabe abby, a value <7% indic ates that their diabe abby is well contr olled and a value great er than or equal to 7% indic ates subop timal contr ol. A1c targe ts shoul d be indiv idual ized based on durat ion of diabe abby, age, comor bid condi tions , and other consi derat ions. Curre ntly, no conse nsus exist s maria fernanda bose use of hemog lobin A1c for diagn osis of diabe abby for child adebayo. Not Available [address] [address] [place], [address], 09/14/2022 15:23:09 10/04/19 23 10/11/2022 ACTH, PLASM A acth, plasma 29 pg/mL 6-50 Refer ence range appli es only to speci mens colle cted betwe en 7am-1 0am. Not Available [facility] [address] [address] [place], [address], 10/12/2022 00:03:05 10/04/19 23 10/11/2022 CORTI NERI, FREE, 24 HOUR URINE total volume 1000 mL Not Available [facility] [address] [address] [place], [address], 10/12/2022 00:03:06 10/04/19 23 10/11/2022 CORTI NERI, FREE, 24 HOUR URINE cortisol, free, urine 12.1 mcg/2 4_h 4.0-50 .0 Not Available [facility] [address], [address], 10/12/2022 00:03:06 10/04/1910/11/2022 CORTI NERI, FREE, 24 HOUR URINE cortisol, free, urine 12.5 mcg/g _crea t Refer ence Range : ADULT S: 3.1-4 2.3 Not Available [facility] [address] [address] [place], [address], 10/12/2022 00:03:06 10/04/1910/11/2022 CORTI NERI, FREE, 24 HOUR URINE creatinine, urine 0.97 g/24_ h 0.50-2 .15 This test was gerry link and its diaz tical perfo rmanc e evgeny cteri stics have been deter mined by [facility] Daniel Salmeron tranernie . It has not been clear ed or appro millicent by FDA. This assay has been valid ated pursu ant to the CLIA regul ation s and is used for clini roxie purpo ses. Not Available [facility] [address] [place], [address], 10/12/2022 00:03:06 10/04/1910/11/2022 CORTI NERI, LC/MS , SALIV A, 2 SAMPL ES draw date 1 023 Not Available [facility] [address] [address] [place], [address], 10/12/2022 00:03:06 10/04/1910/11/2022 CORTI NERI, LC/MS , SALIV A, 2 SAMPL ES draw time 1 2330 Not Available [facility] [address] [place], [address], 10/12/2022 00:03:06 10/04/19 23 10/11/2022 CORTI NERI, LC/MS , SALIV A, 2 SAMPL ES cortisol, saliva sample 1 <0.03 mcg/d L 8-10 AM: 0.04- 0.56 mcg/d L noon- 2 PM: < OR = 0.21 mcg/d L 4-6 PM: < OR = 0.15 mcg/d L 10 PM-1 AM: < OR = 0.09 mcg/d L Plesteve peters note, Saliv ette( R) (Orde r numbe r: 51.15 34) is not an accep table saliv a colle ction devic e for this assay . We will rejec t all white top Saliv ette( R) colle ction devic es as wrong speci men type. Plesteve peters conta ct [facility] for the Saliv ette( R) Corti neri with blue screw top (Orde r numbe r: 51.15 34.50 0) if you are still using white top Saliv ette( R). This test was devel oped and its diaz tical perfo rmanc e evgeny cteri stics have been deter mined by [facility] Daniel Salmeron tranernie . It has not been clear ed or appro millicent by FDA. This assay has been valid ated pursu ant to the CLIA regul ation s and is used for clini roxie purpo ses. Not Available [facility] [address] [place], [address], 10/12/2022 00:03:06 10/04/19 23 10/11/2022 CORTI NERI, LC/MS , SALIV A, 2 SAMPL ES draw date 2 023 Not Available [facility] [address] [place], [address], 10/12/2022 00:03:06 10/04/19 23 10/11/2022 CORTI NERI, LC/MS , SALIV A, 2 SAMPL ES draw time 2 2330 Not Available [facility] [address] [place], [address], 10/12/2022 00:03:06 10/04/19 23 10/11/2022 CORTI NERI, LC/MS , SALIV A, 2 SAMPL ES cortisol, saliva sample 2 <0.03 mcg/d L 8-10 AM: 0.04- 0.56 mcg/d L noon- 2 PM: < OR = 0.21 mcg/d L 4-6 PM: < OR = 0.15 mcg/d L 10 PM-1 AM: < OR = 0.09 mcg/d L Pleas e note, Saliv ette( R) (Orde r numbe r: 51.15 34) is not an accep table saliv a colle ction devic e for this assay . We will rejec t all white top Saliv ette( R) colle ction devic es as wrong speci men type. Pleas e conta ct [facility] for the Saliv ette( R) Corti neri with blue screw top (Orde r numbe r: 51.15 34.50 0) if you are still using white top Saliv ette( R). This test was devel oped and its diaz tical perfo rmanc e evgeny cteri stics have been deter mined by [facility] Daniel katz . It has not been clear ed or appro millicent by FDA. This assay has been valid ated pursu ant to the CLIA regul ation s and is used for clini roxie purpo ses. Not Available [facility] [address] [place], [address], 10/12/2022 00:03:06 10/04/19 23 10/11/2022 CORTI NERI, A.M. cortisol, A.M. 20.0 mcg/d L normal Refer ence Range 8 a.m. (7-9 a.m.) Speci men: 4.0-2 2.0 Not Available [facility] [address] [place], [address], 10/12/2022 00:03:07 11/04/19 23 11/03/2022 CT, adren al, w/ wo contr ast No observ ation record ed. [email or web address] [facility] [address], [place], [address], 11/14/2022 15:31:03 11/30/19 23 11/29/2022 MAMMO , scree aly, digit al, bilat eral No observ ation record ed. [email or web address] [facility] [address], [place], [address], 12/09/2022 14:24:07 12/01/19 23 11/29/2022 bone densi ty No observ ation record ed. [email or web address] [facility] [address], [place], [address], 11/30/2022 20:16:19 Result Notes None recorded. Problems Name Problem SNOMED Code Status Onset Date Resolution Date Notes Provider Name and Address Organization Details Recorded Time Uncontrolled type 2 diabetes mellitus 584493740 Active 2021 Not Available [facility] 3 01:55:21 Well controlled type 2 diabetes mellitus 028864327 Active 2022 Not Available [facility] 3 01:55:21 Dyslipidemia 448955694 Active 2022 Not Available [facility] 3 01:55:21 Menopausal and postmenopausa l disorders 077514634 Active 2022 Not Available [facility] 3 01:55:21 Weight gain 3430598 Active 2022 Not Available [facility] 3 01:55:21 Abnormal cortisol 730347515 Active 2022 Not Available [facility] 3 01:55:21 Adrenal adenoma 889369463 Active 2022 Not Available [facility] 3 01:55:21 Adrenal Nathalie's syndrome 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 Procedures Surgical History Date Name Laterality Status Provider Name and Address Organization Details Recorded Time Colonoscopy completed Not Available [facility] 06/22/2022 13:12:18 Imaging Results Imaging Date Name Status LastModified by Organiz ation Details LastModified Time 11/03/2022 CT, adrenal, w/ wo contrast completed [facility] [address], [place], [address], 11/14/2022 15:31:03 11/29/2022 MAMMO, screening, digital, bilateral completed [email or web address] [address], [address], 12/09/2022 14:24:07 11/29/2022 bone density completed [email or web address] [address], [place], [address], 11/30/2022 20:16:19 Procedure Notes None recorded. Medical Equipment None Reported. Allergies No known drug allergies Medications Name Sig Start Date Stop Date Status Note LastModified by Organization Details LastModified Time amoxicillin 500 mg capsule TAKE ONE CAPSULE BY MOUTH THREE TIMES DAILY 05/31 completed Not Available Not Available Not Available atorvastati n 80 mg tablet TAKE 1 TABLET BY MOUTH EVERY DAY active Not Available Not Available No t Available prednisone 10 mg tablet PLEASE SEE ATTACHED FOR DETAILED DIRECTION S 08/09 completed Not Available Not Available Not Available ipratropium 0.5 mg-albutero l 3 mg (2.5 mg base)/3 mL nebulizatio n soln INHALE 1 VIAL VIA NEBULIZER EVERY 6 HOURS 08/09 completed Not Available Not Available Not Available albuterol sulfate 2.5 mg/3 mL (0.083 %) solution for nebulizatio n USE 1 VIAL VIA NEBULIZER EVERY 6 HOURS NEEDED FOR SHORTNESS OF BREATH / WHEEZING active Not Available Not Available No t Available azithromyci n 250 mg tablet TAKE 2 TABLETS BY MOUTH TODAY, THEN TAKE 1 TABLET DAILY FOR 4 DAYS 12/28 completed Not Available Not Available Not Available hydrocodone 5 mg-acetamin ophen 325 mg tablet 08/09 completed Not Available Not Available Not Available prednisone 20 mg tablet TAKE 1 TABLET BY MOUTH TWICE A DAY FOR 5 DAYS 08/09 completed Not Available Not Available Not Available prednisone 5 mg tablet TAKE 2 TABLETS DAILY FOR 7 DAYS FOR FLARE UPS 08/09 completed Not Available Not Available Not Available clopidogrel 75 mg tablet TAKE 1 TABLET (75 MG TOTAL) BY MOUTH DAILY (STOP BRILINTA WHEN YOU START THIS MEDICATIO N) active Not Available Not Available No t Available sulfamethox azole 800 mg-trimetho prim 160 mg tablet 08/09 completed Not Available Not Available Not Available tramadol 50 mg tablet TAKE 1-2 TABLETS BY MOUTH WITH OTC TYLEONOL THREE TIMES DAILY NEEDED FOR PAIN 08/09 completed Not Available Not Available Not Available glimepiride 2 mg tablet TAKE 1 TABLET BY MOUTH TWICE A DAY BEFORE MEALS active Not Available Not Available No t Available carvedilol 3.125 mg tablet TAKE 1 TABLET BY MOUTH TWICE A DAY WITH MEALS active Not Available Not Available No t Available isosorbide mononitrate ER 60 mg tablet,exte nded release 24 hr TAKE 1 TABLET BY MOUTH EVERY DAY 08/09 completed Not Available Not Available Not Available imiquimod 5 % topical cream packet PLEASE SEE ATTACHED FOR DETAILED DIRECTION S 08/09 completed Not Available Not Available Not Available dexamethaso ne 1 mg tablet take dexa tablet at 10 pm night before 8 am cortisol 2022 active Not Available Not Available Not Avai lable cephalexin 500 mg capsule TAKE 1 CAPSULE BY MOUTH TWICE A DAY UNTIL FINISHED 08/09 completed Not Available Not Available Not Available triamcinolo ne acetonide 0.1 % topical ointment APPLY TO AFFECTED AREA TWICE A DAY FOR 7 WEEKS 08/09 completed Not Available Not Available Not Available dexamethaso ne 4 mg tablet TAKE 1.5 TABLETS BY MOUTH DAILY WITH BREAKFAST FOR 4 DAYS 05/31 completed Not Available Not Available Not Available nitroglycer in 0.4 mg sublingual tablet PLEASE SEE ATTACHED FOR DETAILED DIRECTION S active Not Available Not Available No t Available gabapentin 300 mg capsule TAKE 1 TO 3 CAPSULES BY MOUTH ONCE DAILY AT BEDTIME 08/09 completed Not Available Not Available Not Available lisinopril 5 mg tablet TAKE 1 TABLET BY MOUTH EVERY DAY active Not Available Not Available No t Available albuterol sulfate HFA 90 mcg/actuati on aerosol inhaler INHALE 1-2 PUFFS BY MOUTH EVERY 4 TO 6 HOURS NEEDED FOR SHORTNESS OF BREATH OR WHEEZING active Not Available Not Available No t Available ondansetron 4 mg disintegrat ing tablet DISSOLVE 1 TABLET ON THE TONGUE EVERY 8 HOURS NEEDED FOR NAUSEA AND VOMITING 08/09 completed Not Available Not Available Not Available doxycycline hyclate 100 mg tablet TAKE 1 TABLET BY MOUTH EVERY DAY WITH FOOD 08/09 completed Not Available Not Available Not Available dicyclomine 10 mg capsule TAKE ONE CAPSULE BY MOUTH TWO TIMES A DAY NEEDED FOR ABDOMINAL PAIN 08/09 completed Not Available Not Available Not Available glipizide 5 mg tablet TAKE 1/2 TABLET (2.5MG) BY MOUTH TWICE DAILY BEFORE BREAKFAST AND LUNCH 07/23 completed Not Available Not Available Not Available amoxicillin 875 mg-potassiu m clavulanate 125 mg tablet TAKE 1 TABLET BY MOUTH EVERY 12 HOURS 05/31 completed Not Available Not Available Not Available amoxicillin -potassium clavulanate 1,000 mg-62.5 mg tablet,ext. rel 12hr TAKE 1 TABLET BY MOUTH EVERY 12 HOURS 08/09 completed Not Available Not Available Not Available ezetimibe 10 mg tablet TAKE 1 TABLET BY MOUTH DAILY THE PATIEN T NEEDS TO BE SEEN PRIOR TO ANY MORE REFILLS. active Not Available Not Available No t Available rosuvastati n 40 mg tablet one tablet daily x 90 days 2022 active Not Available Not Available Not Avai lable nitrofurant oin monohydrate /macrocryst als 100 mg capsule TAKE 1 CAPSULE BY MOUTH EVERY 12 HOURS FOR 5 DAYS, MUST ADMINISTE R WITH A MEAL/FOOD 08/09 completed Not Available Not Available Not Available duloxetine 60 mg capsule,del ayed release TAKE 1 CAPSULE BY MOUTH EVERY DAY 08/09 completed Not Available Not Available Not Available pregabalin 50 mg capsule TAKE 1 CAPSULE BY MOUTH THREE TIMES DAILY FOR PAIN CONTROL 08/09 completed Not Available Not Available Not Available pregabalin 100 mg capsule TAKE ONE CAPSULE BY MOUTH THREE TIMES DAILY 08/09 completed Not Available Not Available Not Available aspirin 2021 active Not Available Not Available Not Avai lable ranolazine ER 500 mg tablet,exte nded release,12 hr Take 1 tablet twice a day by oral route. 08/09 completed Not Available Not Available Not Available Lantus Solostar U-100 Insulin 100 unit/mL (3 mL) subcutaneou s pen INJECT 30 UNITS UNDER THE SKIN EACH EVENING AND 55 UNITS EVERY NIGHT AT BEDTIME 2022 active Not Available Not Available Not Avai lable Contour Next Test Strips TEST SUGARS TWICE DAILY BEFORE MEALS X 90 DAYS active Not Available Not Available No t Available Contour Next Meter USE DAILY DIRECTED active Not Available Not Available No t Available Farxiga 10 mg tablet Take 1 tablet every day by oral route in the morning for 90 days. 07/23 completed Not Available Not Available Not Available Brilinta 60 mg tablet TAKE 1 TABLET BY MOUTH 2 TIMES A DAY. 08/09 completed Not Available Not Available Not Available Tresiba FlexTouch U-200 insulin 200 unit/mL (3 mL) subcutaneou s pen Inject 46 units every day by subcutane ous route at bedtime for 90 days. 07/23 completed Not Available Not Available Not Available Xeljanz XR 08/09 completed Not Available Not Available Not Available bupropion HCl 150 mg tablet,12 hr sustained-r elease(smok ing deterrent) TAKE 1 TABLET BY MOUTH TWICE A DAY 08/09 completed Not Available Not Available Not Available Basaglar KwikPen U-100 Insulin 2021 active Not Available Not Available Not Avai lable ergocalcife rol (vit D2) (bulk) 08/09 completed Not Available Not Available Not Available Vitals Date Recorded Body mass index (BMI) Body mass index (BMI) Body mass index (BMI) Body height Body height Body height Oxygen saturation Oxygen saturation in Arterial blood by Pulse oximetry Oxygen saturation Oxygen saturation in Arterial blood by Pulse oximetry Oxygen saturation Oxygen saturation in Arterial blood by Pulse oximetry Heart rate Heart rate Heart rate Body temperature Body temperature Body temperature Body weight Body weight Body weight Systolic blood pressure Diastolic blood pressure Systolic blood pressure Diastolic blood pressure Systolic blood pressure Diastolic blood pressure Provider Name and Address Organization Details Last Updated DateTime 3 33.1 kg/m2 32.4 kg/m2 32.9 kg/m2 160.02 cm 160.02 cm 160.02 cm 96 % 96 % 99 % 99 % 97 % 97 % 72 /min 79 /min 69 /min 97.7 [degF] 97.8 [degF] 97.8 [degF] 94591.7 7 g 36992.4 g 41762.1 8 g 120 mm[Hg] 82 mm[Hg] 110 mm[Hg] 80 mm[Hg] 110 mm[Hg] 75 mm[Hg] Not Available [facility] 3 13:12:33 Date Recorded Body height Body mass index (BMI) Body weight Body temperature Respiratory rate Heart rate Systolic blood pressure Diastolic blood pressure Provider Name and Address Organization Details Last Updated DateTime 3 160.02 cm 32.9 kg/m2 30665.4 6 g 97.3 [degF] 20 /min 95 /min 144 mm[Hg] 91 mm[Hg] ZA Grimes [place] [facility] 3 14:52:28 Social History Question Answer Notes LastModified by Organizat ion Details LastModified Time Tobacco Smoking Status Current Every Day Smoker Not Available [facility] 06/22/2022 13:12:14 What Is Your Level Of Alcohol Consumption? None [id number] Information not available 06/22/2022 What Is Your Level Of Caffeine Consumption? Moderate [id number] Information not available 06/22/2022 In The 14 Days Before Symptom Onset, Have You Had Close Contact With A Laboratory-confirm ed COVID-19 While That Case Was Ill? No [id number] Information not available 06/22/2022 In The 14 Days Before Symptom Onset, Have You Had Close Contact With A Person Who Is Under Investigation For COVID-19 While That Person Was Ill? No [id number] Information not available 06/22/2022 What Type Of Diet Are You Following? REGULAR [id number] Information not available 06/22/2022 What Is Your Relationship Status? [id number] Information not available 06/22/2022 Do You Use Your Seat Belt Or Car Seat Routinely? Yes [id number] Information not available 06/22/2022 How Much Tobacco Do You Smoke? 1 PPW [id number] Information not available 06/22/2022 Do You Use Any Illicit Or Recreational Drugs? No [id number] Information not available 06/22/2022 Have You Recently Traveled Abroad? No [id number] Information not available 06/22/2022 Do You Have Any Dietary Restrictions? No [id number] Information not available 06/22/2022 Sex: Female Functional Status None recorded. Mental Status None recorded. Family History Nothing Reported. Medical History Condition Response LUNG DISEASE/DISORDER COPD Y HIGH CHOLESTEROL / HYPERLIPIDEMIA Y EYE PROBLEMS Y HAVE YOU BEEN HOSPITALIZED OR SEEN IN [facility] ER IN THE PAST YEAR ? Y STROKE/TIA Y GERD/NAUSEA Y USE OF BLOOD THINNERS Y SKIN PROBLEMS Y DIABETES, TYPE GI PROBLEMS Y HEART DISEASE/HEART PROBLEMS Y LIVER DISEASE Y CANCER: SPECIFY Y Gynecological HistoryNo gynecological history recorded. Obstetrics History GPAL:G 0 P 0 0 0 0 Past Encounters Encounter ID Performer Location Encounter Start Date Encounter Closed Date Diagnosis/Indication Diagnosis SNOMED-CT Code Diagnosis ICD10 Code Diagnosis Note [id number] [facility] [address] [place] [address] 05/31/2021 00:00:00 05/31/2021 14:06:32 [id number] [facility] [address] [place] [address] 07/23/2021 00:00:00 07/23/2021 16:29:56 [id number] [facility] [address] [place] [address] 12/28/2021 00:00:00 12/28/2021 13:59:46 [id number] Yumiko Acosta MD [facility] [address] [place] [address] 08/09/2022 14:28:35 08/09/2022 15:17:25 Well controlled type 2 diabetes mellitus 305517462 E11.9 A1C of 6.8% down from 7.2%-carmen nue on lantus 35 units am and 55 units in evening and she is aware on self titration. Recommende d transition to tresiba she will ask pharmacy to see if covered. Continue glimepirid e scale. Cannot take DPP4 inh, GLP1 agonist, metformin, SGLT2 inh due to intoleranc e and pancreatit is. Send for DST to screen for hypercorti solism. Dyslipidemia 696555343 E 78.5 Continue statin therapy. Menopausal and postmenopausal disorders 301088939 N95.9 Send for bone density to screen for osteoporos is. Weight gain 1248826 R63. 5 Will send for low dose dexa suppressio n testing to screen for hypercorti solic state. Spent up to 28 minutes preparing to see the patient (eg, review of tests), obtaining and/or reviewing separately obtained history, performing a medically appropriat e examinatio n and evaluation , counseling and educating the patient, ordering medication s, tests, along with documentin g clinical informatio n in the electronic health record, lisa piña interpreti ng results and communicat ing results to the patient. RTC in 4 months. Patient was provided a handwritte n lab order which contains our fax number. If she chooses to go outside of the [facility] system to obtain labwork she was advised to provide our fax number and my informatio n to the lab she will be obtaining labwork from in order to have her labs properly forwarded over for me to review so there is no loss of follow up due to use of outside network. She was also advised to contact our clinic informing us that she has completed her labwork so we are aware we will need to reach out to the appropriat e laboratory to request her results be forwarded to us so I might have the ability to review and make further medical decision making in her case. She voiced understand ing. Health Concerns Section Related Observation LastModified by Organization Detai ls LastModified Time None Recorded Concern Status LastModified by Organization Details LastModified Time None Recorded Advance Directives Directive None Recorded Payers Encounter Date Sequence Insurance Name Policy Number Policy Borrero Covered Member ID Borrero Member ID Guarantor Name 08/09/2022 1 [facility] (MEDICARE REPLACEMENT/A DVANTAGE - HMO) [id number] Keyla Arreaga [id number] Keyla Arreaga Notes Date Note Type Note Provider Name and Address Organization Details Recorded Time 08/09/2022 text/html 66 yo female com es in for follow up in management of overall controlled type 2 DM (A1C of 6.8%), dyslipidemia. last seen in Dec at that time we had patient continue on lantus 35 units in morning and 55 units at bedtime as patient aware to titrate slowly every 3 days to maintain fasting glucose of 90-130 mg/dL. 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 De Souza. usually controlled around 150 mg/dL or lessusually 120-140 mg/dL fasting and may be up to 180 mg/dL-she has had a few highs. She is taking lantus 35 units am and 55 units in evening. She may only take 20 units in morning. She is not taking her lgimepiridlabs are old from 03/15:a1c of 6.8%TSH of 3.04 uIU/mlFT4 of 1.1 ng/mLmicroalbumin 3 ug/mgglucose 121 mg/dLCr normalLFT [id number]/34/49 Yumiko Acosta MD [address] [facility], [facility] [address], [place], [address], [facility] 08/09/2022 15:19:30 OBGyn Episode No OBEpisode recorded.
--- OUTSIDE RECORDS SUMMARY | 2024-06-13 12:32 | XMS_ITS | Encounter Summary ---
Author Organization [facility] Address [address] [place] [address] Care Team Providers Care Tobacco Grader Name Role Phone Karan Ngo MD Unavailable Abdulkadir Craft MD Unavailable Carole Neal MD Unavailable [phone] Rohith Sen MD Primary Care Provider Encounter Details Date Type Department Care Team (Late st Contact Info) Description 11/17/2015 Abstract [facility] CONVERSION [address] [place], [place] [id number] , Olinda Polo MD Social History Tobacco Use Types Packs/Day Years Used Date Smoking Tobacco: Never Assessed Comments Unknown Sex and Gender Information Value Date Recorded Sex Assigned at Not on file Legal Sex Female 6:09 PM CDT Gender Identity Not on file Sexual Orientation Not on file documented as of this encounter Plan of Treatment Not on file documented as of this encounter Visit Diagnoses Not on filedocumented in this encounter Care Teams Tobacco Grader Relationship Specialty Start Date End Date Rohith Sen MD [address] [place] [address] PCP - General FAMILY PRACTICE 02/03/23 Karan Ngo MD [address] [address] CARDIOVASCULAR DISEASE 01/29/21 [place] [address] [place] [address] Referring Physician RHEUMATOLOGY 01/29/21 Carole Neal MD [address] [place] [address] PULMONARY DISEASE 01/29/21 documented as of this encounter
--- OUTSIDE RECORDS SUMMARY | 2024-06-13 12:32 | XMS_ITS | Encounter Summary ---
Author Organization [facility] Address [address] [place] [address] Phone Care Team Providers Care Financial Data Analyst Name Role Phone Karan Ngo MD Unavailable Gin Wilson MD Primary Care Provider Gin Wilson MD Primary Care Provider Rohith Sen MD Primary Care Provider [phone] Encounter Details Date Type Department Care Team (Late st Contact Info) Description 09/30/2020 Orders Only [facility] Scanning, Provider Social History Tobacco Use Types Packs/Day Years Used Date Smoking Tobacco: Every Day Cigarettes 0.8 50 Smokeless Tobacco: Never Comments:2 Cigs a Day Alcohol Use Standard Drinks/Week Comments No 0 (1 standard drink = 0.6 oz pur e alcohol) Comments No Sex and Gender Information Value Date Recorded Sex Assigned at Not on file Legal Sex Female 1:49 PM REFRIGERATION BRAZER/SOLDERER Gender Identity Not on file Sexual Orientation Not on file documented as of this encounter Plan of Treatment Not on file documented as of this encounter Procedures Procedure Name Priority Date/Time Associated Diagnosis Comments SCAN - RADIOLOGY/IMAGING 09/30/2020 documented in this encounter Results * SCAN - RADIOLOGY/IMAGING (09/30/2020) Anatomical Region Laterality Modality Other us Provider Scanning Edited Result - Final documented in this encounter Visit Diagnoses Not on filedocumented in this encounter Additional Health Concerns Infection Onset Date Last Indicated Resolved Time COVID: Suspected 02/19/2021 02/19/2021 02/19/2021 1:40 PM CDT COVID19 02/19/2021 02/19/2021 03/05/2021 3:05 AM REFRIGERATION BRAZER/SOLDERER COVID: Recovered Comment:Added based on recent COVID infection. 03/05/2021 06/08/2021 07/03/2021 3:[address] documented as of this encounter Care Teams Financial Data Analyst Relationship Specialty Start Date End Date Gin Wilson MD [address] [place] [address] PCP - General Family Practice 06/19/19 01/31/21 Gin Wilson MD [address] [place] [address] PCP - General Family Practice 02/01/21 12/04/23 Rohith Sen MD [address] [place] [address] PCP - General Family Practice 12/05/23 Karan Ngo MD [address] [place] [address] Consulting Physician Cardiology 11/02/18 documented as of this encounter
--- OUTSIDE RECORDS SUMMARY | 2024-06-13 12:32 | XMS_ITS | Clinical Summary ---
Author Organization [facility] [address] [facility] [address] Address [address] [place] [address] Care Team Providers Care Biologics Specialist Name Role Phone Karan Ngo MD Unavailable Rohith Sen MD Primary Care Provider [phone] Allergies Active Allergy Reactions Criticality Noted Date [...] 24 hr tabletIndications :Coronary artery disease of [place] artery of [place] heart with stable angina pectoris (HCC) TAKE [...] 03/16/2020 Assessment & Plan (03/16/2020 2:22 PM WATER TREATMENT PLANT SUPERVISOR): Diagnosed in 2013- Had recurrent pancreatitis. Started [...] 03/16/2020 Assessment & Plan (03/16/2020 2:23 PM WATER TREATMENT PLANT SUPERVISOR): Complicated with CAD Controlled with medication - [...] (11/02/2018): Added automatically from request for surgery [id number] Assessment & Plan (12/11/2018 5:10 PM CDT): [...] asso ciated with type 2 diabetes mellitus (CMS/HCC) 06/12/2015 Assessment & Plan (09/20/2019 2:50 PM [...] 3 days Coronary artery disease Tobacco abuse Encounters Date Type Department Care Team Description 05/06/2024 Telephone [facility] Cardiology [address] [place] [address] Karan Ngo MD from Last 3 Months Surgical History Surgery Date Site/Laterality Comments CARDIAC STENT PLACEMENT CHOLECYSTECTOMY TONSILLECTOMY JOINT REPLACEMENT bilateral knees HERNIA REPAIR X 3 GANGLION CYST EXCISION X 3 Medical History Medical History Date Comments Hyperlipidemia GERD (gastroesophageal reflux disease) Diverticulitis Sleep apnea Valvular disease Diabetes mellitus (HCC) AAA (abdominal aortic aneurysm) (HCC) Neuropathy (CMS/HCC) RA (rheumatoid arthritis) (HCC) Rheumatoid arthritis (HCC) Psoriatic arthritis (HCC) Cancer (CMS/HCC) (HCC) childhood leukemia Cataract Myocardial infarction (HCC) Coronary artery disease stents x feb 2018 last 2 placed / 2017 COPD (chronic obstructive pu lmonary disease) (HCC) MCMAHON / CANDICE/ does not wear CPA P Emphysema lung (HCC) Emphysema of lung (HCC) Type 2 diabetes mellitus (HCC) Rheumatoid arthritis (HCC) and o steoarthritis / uses walker at home Family History Medical History Relation Name Comments Cancer Brother Heart attack Father Stroke Mother Cancer Paternal Grandmother Cancer Sister Relation Name Status Comments Brother Father Mother Paternal Grandmother Sister Social History Tobacco Use Types Packs/Day Years [...] on file Legal Sex Female 1:49 PM WATER TREATMENT PLANT SUPERVISOR Gender Identity Not on file Sexual Orientation Not on file Obstetrics History Last Filed Vital Signs Vital Sign Reading [...] 01/17/2024 8:40 AM CDT Plan of Treatment Health Maintenance Due Date Last Done Comments Albumin Creatinine Ratio, Urine 1955 Breast Cancer Screening-Mammogram 1955 Colon Cancer Screening-Colonoscopy 1955 Depression Screening 1955 Hepatitis C Screening 1956 Osteoporosis Screening-Bone Density Scan 1956 DTaP/Tdap/Td Vaccine (1 - Tdap) 11/16/1967 Hepatitis B Screening 1974 Pneumococcal vaccine 65+ (1 of 2 - PCV) 11/16/1975 Lung Cancer Screening 2006 Zoster Vaccine (1 of 2) 2006 Dilated Eye Exam 02/07/2020 02/06/2019 Hemoglobin A1C 09/13/2020 03/16/2020, 08/23, 04/26/2019, Additional history exists Foot Exam 09/19/2020 09/20/2019, 07/10/2018 Fall Risk Assessment 10/12/2021 10/12/2020, 06/28/19 Well Visit 65+ 2021 eGFR 09/10/2022 09/10/2021, 06/22, 02/20/2021, Additional history exists Influenza Vaccine (#1) 2023 Lipid Panel 12/04/2024 12/05/2023, 11/23, 02/03/2021, Additional history exists Medical Devices Implanted Type Area Title Examiner Device Identifier Shelf Expiration Date Model / Serial / Lot System Coronary Stent Synergy Pebax Everolimus Eluting [place] Chromium Plga L12 Mm L144 Cm Od2.25 Mm Radiopaque 1 Access Port Inflation Lumen Accepts .014 In Guidewire - [id number] Implanted:Qty: 1 on 04/06/2017 by Karan Ngo MD at [facility] 12/19/2017 [id number] / / [id number] Procedures Procedure Name Priority Date/Time Associated Diagnosis Comments POCT LIPID PANEL Routine 12/05/2023 11:2 5 AM CDT Lipid screening EGFR STAT 09/10/2021 3:31 PM CDT POCT HEMOGLOBIN A1C Routine 03/16/2020 2 :10 PM WATER TREATMENT PLANT SUPERVISOR Type 2 diabetes mellitus with hyperglycemia, with long-term current use of insulin ([facility]) DIABETES EYE EXAM Routine 02/06/2019 from Last 3 Months or Most Recently Relevant to Health Maintenance Results * POCT lipid panel (12/05/2023 11:25 AM CDT) Cholesterol, POC 100 mg/dL HDL, POC 18 mg/dL Triglycerides, POC 157 mg/dL LDL Cholesterol POC 59 mg/dL Chol/HDL Ratio, POC - Non-HDL Cholesterol, POC - mg/dL Cholesterol Total, POC 100 mg/dL Capillary blood 12/05/2023 1 1:25 AM CDT Marta Concepcion NP POINT OF CARE TEST [...] Brenda Mast MD LAB BLOOD ORDERABLES Tanika l Result [facility] ([facility]) [address] [facility] Department [place] [address] * POCT hemoglobin A1c (03/16/2020 2:10 PM WATER TREATMENT PLANT SUPERVISOR) Hemoglobin A1C, POC 7.1 Blood specimen (specimen) 03/16/2020 2:10 PM WATER TREATMENT PLANT SUPERVISOR Abena Ronquillo MD POINT OF CARE TEST ORDERABLES Final Result * DIABETES EYE EXAM (02/06/2019) Diabetic Eye Exam Unknown Historical Provider HEALTH MAINTENANCE Final Result from Last 3 Months or Most Recently Relevant to Health Maintenance Insurance MEDICARE SOLUTIONS Advance Directives For more information, please contact: [phone] * Full Code (Latest Code Status on File) Date Activated Date Inactivated Comments 10/10/2020 6:56 PM 10/12/2020 5:57 PM * Full Code Date Activated Date Inactivated Comments 11/30/2018 7:41 AM 11/30/2018 1:32 PM * Full Code Date Activated Date Inactivated Comments 04/06/2017 3:48 PM 04/07/2017 2:06 PM Care Teams Biologics Specialist Relationship Specialty Start Date End Date Rohith Sen MD [address] [place] [address] PCP - General Family Practice 12/05/23 Karan Ngo MD [address] [place] [address] Consulting Physician Cardiology 11/02/18
--- OUTSIDE RECORDS SUMMARY | 2024-06-13 12:32 | XMS_ITS | Clinical Summary ---
Author Organization [facility] Address [address] [place] [address] Care Team Providers Care Plate And Weld Inspector Name Role Phone Karan Ngo MD Unavailable Abdulkadir Craft MD Unavailable Carole Neal MD Unavailable [phone] Rohith Sen MD Primary Care Provider [phone] Allergies Active Allergy Reactions Criticality Noted Date Comments Meloxicam Other (see comment) 01/29/2021 pancreatitis Methotrexate Other (see comment) 01/29/2021 pancreatitis Medications No known medications Family History Medical History Relation Comments Cancer Brother 1 Cancer Brother 2 Cancer Brother 3 COPD Father Heart Disease Father Dementia Mother Diabetes Mother Stroke Mother Breast Cancer Sister 1 Cancer Sister 1 Cancer Sister 2 Uterine Cancer Sister 2 No Known Problems Son 1 Relation Status Comments Brother 1 Brother 2 Brother 3 Father Mother Sister 1 Alive Sister 2 Alive Son 1 Alive Son 2 (Age 26) brain injury f rom fall Social History Tobacco Use Types Packs/Day Years [...] Sign Reading Time Taken Comments Blood Pressure - - Pulse - - Temperature - - Respiratory Rate - - Oxygen Saturation - - Inhaled Oxygen Concentration - - Weight 86.2 kg (190 lb) 01/29/2021 1:01 PM CDT Height 160 cm (5' 3 ) 01/29/2021 1:01 PM CDT Body Mass Index 33.66 01/29/2021 1:01 PM CDT Plan of Treatment Health Maintenance Due Date Last Done Comments Colorectal Cancer Screening Colonoscopy (10 Years) 1956 Pneumococcal Vaccine: 65+ Years (1 of 2 - PCV) 1962 Hepatitis C 1974 DTaP, Tdap and Td Vaccines ( 1 - Tdap) 11/16/1975 Mammogram Screening 1996 Zoster Vaccines (1 of 2) 2006 Annual Medicare Wellness Visit 2021 Dexa Scan (General) 2021 COVID-19 Vaccine (3 - 2023-2 5 season) 2023 07/31/2020, 07/10/2020 Influenza Adult (#1) 2024 RSV Immunization or 60+ Years (1 - 1-dose 75+ series) 11/16/2031 Meningococcal B Vaccine Aged Out No l onger eligible based on patient's age to complete this topic Meningococcal Vaccine Aged Out No rui vanessa eligible based on patient's age to complete this topic RSV Immunizations Under 20 Months Aged Out No longer eligible b ased on patient's age to complete this topic Insurance AETNA [facility] Care Teams Plate And Weld Inspector Relationship Specialty Start Date End Date Rohith Sen MD [address] [place] [address] PCP - General FAMILY PRACTICE 02/03/23 Karan Ngo MD [address] [facility] [address] [place] [address] CARDIOVASCULAR DISEASE 01/29/21 [place] [address] [place] [address] Referring Physician RHEUMATOLOGY 01/29/21 Carole Neal MD [address] [place] [address] PULMONARY DISEASE 01/29/21
[2024-06-13 12:57] LABS: Hemoglobin 12.9 g/dL (12.0-15.0); Mean Corpuscular HGB Conc 32.3 g/dl (32-36); Mean Corpuscular Hemoglobin 29.9 pg (26-34); Mean Corpuscular Volume 92.8 fl (80-100); Mean Platelet Volume 10.3 fl (7.4-10.4); Platelet Count Result 166 k/mm3 (150-375); Red Blood Count 4.31 M/mm3 (4.2-5.4); Red Cell Distribution Width 13.3 % (11.5-14.5); White Blood Count 5.4 K/mm3 (4.5-10.0)
[2024-06-13 13:06] LABS: Ammonia < 9 umol/L (9-30)
[2024-06-13 13:07] LABS: INR 0.9; Prothrombin Time 12.8 Seconds (11.1-14.7)
[2024-06-13 13:19] LABS: Iron 68 ug/dL (37-170)
[2024-06-13 13:24] LABS: Alanine Aminotransferase 23 U/L (6-35); Albumin Level 4.1 g/dL (3.5-5.1); Alkaline Phosphatase 88 U/L (38-126); Anion Gap 10 mmol/L (4-12); Aspartate Amino Transferase 25 U/L (14-36); Bilirubin,Total 0.5 mg/dL (0.2-1.3); Blood Urea Nitrogen 17 mg/dL (7-17); Calcium 9.7 mg/dL (8.4-10.2); Carbon Dioxide 26 mmol/L (22-30); Chloride 105 mmol/L (98-107); Estimated Glomerular Filt Rate > 60; Glucose 137 mg/dL (65-110); Potassium 4.3 mmol/L (3.4-5.0); Sodium 141 mmol/L (137-145)
[2024-06-13 13:28] LABS: Immunoglobulin G 1094 mg/dL (700-1600)
[2024-06-13 13:29] LABS: Percent Iron Saturation 18 % (20-50)
[2024-06-13 13:51] LABS: Hepatitis B Surface Antigen Negative (Negative)
[2024-06-13 13:57] LABS: HAV RESULT Negative (Negative); Hepatitis B Core IgM Result Negative (Negative)
[2024-06-13 14:09] LABS: Hepatitis C Virus Antibody Negative (Negative)
[2024-06-15 02:48] LABS: Alpha-1-Antitrypsin, QN 143 mg/dL (83-199)
[2024-06-17 05:03] LABS: Actin Antibody (IgG) <20 U (<20)
[2024-06-17 16:12] LABS: Immunoglobulin A 265 mg/dL (70-320); TTG IGA AB <1.0 U/mL
[2024-06-18 08:23] LABS: LKM 1 Antibody <=20.0 U (<=20.0)
== END 2024-06-13 12:21 | disposition home or self-care (01) ==
PROVIDERS: PCP Nurse Practitioner Adult Health; Visit Provider Nurse Practitioner
DX: K74.60 Unspecified cirrhosis of liver (principal); K75.81 Nonalcoholic steatohepatitis (NASH); R68.89 Other general symptoms and signs
CPT/HCPCS: 36415; 80053; 80074; 82103; 82140; 82728; 82784; 83520; 83540; 83550; 85027; 85610; 86038; 86039; 86364; 86376

== ENCOUNTER 2024-07-17 12:32 | Outpatient (CLI) | payer MEDICARE, SELFPAY ==
--- NOTE | ~2024-07-17 | MR_ITS ---
EXAMINATION: MR abdomen wo/w con DATE: 07/17/2024 13:49 INDICATION: Pancreatic cyst. TECHNIQUE: Magnetic resonance imaging (MRI) of the abdomen was performed without and with 18 mL ProHa nce intravenous contrast. COMPARISON: Abdomen MRI 12/30/2022, 12/30/22, 02/16/16 FINDINGS: The liver is normal. The gallbladder is absent. The spleen, adrenal glands, and kidneys are normal. T here is a 9 mm cystic lesion of the body of the pancreas that communicates with the main pancreatic d uct. There are multiple dilated side chains of the main pancreatic duct in the body of the pancreas. The main pancreatic duct is dilated to 6 mm in the body of the pancreas. There is a 4.5 cm fusiform a neurysm of infrarenal aorta. There are no dilated loops of bowel. There are no pathologically enlarge d lymph nodes. There is no free intraperitoneal fluid. IMPRESSION: 1. Stable duct dilatation and cystic lesion involving the body of the pancreas, likely chronic pancre atitis. 2. 4.5 cm fusiform aneurysm of infrarenal aorta. Reviewed, dictated and finalized at location A. IMPRESSION: 1. Stable duct dilatation and cystic lesion involving the body of the pancreas, likely chronic pancreatitis. 2. 4.5 cm fusiform aneurysm of infrarenal aorta.
--- OUTSIDE RECORDS SUMMARY | 2024-07-17 13:36 | XMS_ITS | Clinical Summary ---
Author Organization [facility] Address [address] [place] [address] Care Team Providers Care Button Maker And Installer Name Role Phone Karan Ngo MD Unavailable Abdulkadir Craft MD Unavailable Carole Neal MD Unavailable [phone] Rohith Sen MD Primary Care Provider [phone] Allergies Active Allergy Reactions Criticality Noted Date [...] age to complete this topic Insurance AETNA [facility] Care Teams Button Maker And Installer Relationship Specialty Start Date End Date Rohith Sen MD [address] [place] [address] PCP - General FAMILY PRACTICE 02/03/23 Karan Ngo MD [address] [facility] [address] [place] [address] CARDIOVASCULAR DISEASE 01/29/21 [place] [address] [place] [address] Referring Physician RHEUMATOLOGY 01/29/21 Carole Neal MD [address] [place] [address] PULMONARY DISEASE 01/29/21
--- OUTSIDE RECORDS SUMMARY | 2024-07-17 13:36 | XMS_ITS | Clinical Summary ---
Author Organization [facility] [place] [address] [facility] [address] Address [address] [place] [address] Care Team Providers Care Employee Benefits Director Name Role Phone Karan Ngo MD Unavailable Rohith Sen MD Primary Care Provider [phone] Allergies Active Allergy Reactions Criticality Noted Date [...] 24 hr tabletIndications :Coronary artery disease of [place] artery of [place] heart with stable angina pectoris TAKE 1 TABLET BY MOUTH EVERY DAY [...] 03/16/2020 Assessment & Plan (03/16/2020 2:22 PM TECHNICAL INSTRUCTOR COURSE DEVELOPER): Diagnosed in 2013- Had recurrent pancreatitis. Started [...] 03/16/2020 Assessment & Plan (03/16/2020 2:23 PM TECHNICAL INSTRUCTOR COURSE DEVELOPER): Complicated with CAD Controlled with medication - [...] (11/02/2018): Added automatically from request for surgery [id number] Assessment & Plan (12/11/2018 5:10 PM CDT): [...] ciated with type 2 diabetes mellitus 06/12/2015 Assessment & Plan (09/20/2019 2:50 PM [...] Type Department Care Team Description 05/06/2024 Telephone [facility] Cardiology [address] [place] [address] Karan Ngo MD from Last 3 Months Surgical History Surgery Date Site/Laterality Comments CARDIAC STENT PLACEMENT CHOLECYSTECTOMY TONSILLECTOMY JOINT REPLACEMENT bilateral knees HERNIA REPAIR X 3 GANGLION CYST EXCISION X 3 Medical History Medical History Date Comments Hyperlipidemia GERD (gastroesophageal reflux disease) Diverticulitis Sleep apnea Valvular disease Diabetes mellitus (HCC) AAA (abdominal aortic aneurysm) Neuropathy RA (rheumatoid arthritis) (HCC) Rheumatoid arthritis (HCC) Psoriatic arthritis (HCC) Cancer (HCC) childhood leukem ia Cataract Myocardial infarction (HCC) Coronary artery disease [...] on file Legal Sex Female 1:49 PM TECHNICAL INSTRUCTOR COURSE DEVELOPER Gender Identity Not on file Sexual Orientation [...] history exists Medical Devices Implanted Type Area Poultry Scientist Device Identifier Shelf Expiration Date Model / Serial / Lot System Coronary Stent Synergy Pebax Everolimus Eluting [place] Chromium Plga L12 Mm L144 Cm Od2.25 Mm Radiopaque 1 Access Port Inflation Lumen Accepts .014 In Guidewire - [id number] Implanted:Qty: 1 on 04/06/2017 by Karan Ngo MD at [facility] [employer] [facility] 12/19/2017 [id number] / / [id number] Procedures Procedure Name Priority Date/Time Associated Diagnosis Comments POCT LIPID PANEL Routine 12/05/2023 11:2 5 AM CDT Lipid screening EGFR STAT 09/10/2021 3:31 PM CDT POCT HEMOGLOBIN A1C Routine 03/16/2020 2 :10 PM TECHNICAL INSTRUCTOR COURSE DEVELOPER Type 2 diabetes mellitus with hyperglycemia, with long-term current use of insulin (HCC) HM DIABETES EYE EXAM Routine 02/06/2019 from Last [...] LAB BLOOD ORDERABLES Tanika l Result [place] CUELLAR ([place]) [facility] Department [place] [address] * POCT hemoglobin A1c (03/16/2020 2:10 PM TECHNICAL INSTRUCTOR COURSE DEVELOPER) Hemoglobin A1C, POC 7.1 Blood specimen (specimen) 03/16/2020 2:10 PM TECHNICAL INSTRUCTOR COURSE DEVELOPER us Abena Ronquillo MD POINT OF CARE TEST ORDERABLES Final Result * DIABETES EYE EXAM (02/06/2019) Diabetic Eye Exam Unknown us Historical Provider HEALTH MAINTENANCE Final Result from Last 3 Months or Most Recently Relevant to Health Maintenance Insurance [facility] MEDIC[facility] Address: [address] [address] [facility] MEDICARE Address: [address] [address] [place] [address] [facility] MEDICARE ADVANTAGE Member Subscriber Plan / Payer (Ef fective 2023-Present) Name:Alberto Stein Relation to Subscriber:Self Name:Alberto Stein Payer ID:[id number] ([facility]) Type:[facility] MEDICARE Address: [address] [address] [place] [address] Advance Directives For more information, please contact: [phone] * Full Code (Latest Code Status on File) Date Activated Date Inactivated Comments 10/10/2020 6:56 PM 10/12/2020 5:57 PM * Full Code Date Activated Date Inactivated Comments 11/30/2018 7:41 AM 11/30/2018 1:32 PM * Full Code Date Activated Date Inactivated Comments 04/06/2017 3:48 PM 04/07/2017 2:06 PM Care Teams Employee Benefits Director Relationship Specialty Start Date End Date Rohith Sen MD [address] [id number] PCP - General Family Practice 12/05/23 Karan Ngo MD [address] [address] Consulting Physician Cardiology 11/02/18
--- OUTSIDE RECORDS SUMMARY | 2024-07-17 13:36 | XMS_ITS | Encounter Summary ---
Author Organization [facility] Address [address] [place] [address] Care Team Providers Care Rack Room Worker Name Role Phone Karan Ngo MD Unavailable Abdulkadir Craft MD Unavailable Carole Neal MD Unavailable [phone] Rohith Sen MD Primary Care Provider [phone] Encounter Details Date Type Department Care Team (Late st Contact Info) Description 11/17/2015 Abstract [facility] CONVERSION [address] [place], [place] [id number] , Olinda Polo MD Social History Tobacco [...] on filedocumented in this encounter Care Teams Rack Room Worker Relationship Specialty Start Date End Date Rohith Sen MD [address] [place] [id number] PCP - General FAMILY PRACTICE 02/03/23 Karan Ngo MD [address] [address] CARDIOVASCULAR DISEASE 01/29/21 [place] [address] [place] [address] Referring Physician RHEUMATOLOGY 01/29/21 Carole Neal MD [address] [place] [address] PULMONARY DISEASE 01/29/21 documented as of this encounter
--- OUTSIDE RECORDS SUMMARY | 2024-07-17 13:36 | XMS_ITS | Data Portability ---
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 Plan of Treatment Reminders Order Date Submit Date Provider Last Modified By Organization Details Last Modified Time Details Appointments None recorded. Lab cortisol, am, serum 2022 023 [employer] [facility], [address], [place], [address], 3 15:23:09 dexamethaso ne, serum 2022 023 [facility], [address], [place], [address], 3 15:23:07 microalbumi n/creatinin e, mass ratio, urine 2022 023 [facility], [address], [place], [address], 3 15:23:07 CMP, serum or plasma 2022 023 [employer] [facility], [address], [place], [address], 3 15:23:06 HbA1c (hemoglobin A1c), blood 2022 023 [facility] [facility], [address], [place], [address], 3 15:23:10 lipid panel, serum 2022 023 [employer] [facility], [address], [place], [address], 3 15:23:05 TSH, serum or plasma 2022 023 [employer] [facility], [address], [place], [address], 3 15:23:08 T4, free, serum 2022 023 [employer] [facility], [address], [place], [address], 3 15:23:08 Referral None recorded. Procedures None recorded. Surgeries None recorded. Imaging bone density [address] [facility] (Im[facility]), [address] [place] [address], [address], 3 18:06:42 Medication Orders dexamethaso ne 1 mg tablet 2022 023 [id number], [address] [place], [address], 3 15:14:07 Patient TargetsNo targets recorded. Patient [...] diabe abby for child adebayo. Not Available [address] [place], [address], 06/10/2021 12:18:35 06/09/19 22 06/10/2021 TSH+F REE T4 TSH 2.16 mIU/L 0.40-4 .50 normal Not Available [address] [place], [address], 06/10/2021 12:18:34 06/09/19 22 06/10/2021 TSH+F REE T4 T4, free 1.2 NG/dL 0.8-1. 8 normal Not Available [address] [address] [place], [address], 06/10/2021 12:18:34 06/09/19 22 06/10/2021 ALBUM IN, RANDO M URINE W/CRE ATINI NE creatinine, random urine 74 mg/dL 20-275 normal Not Available [address] [address] [place], [address], 06/10/2021 12:18:33 06/09/19 22 06/10/2021 ALBUM IN, RANDO M URINE W/CRE ATINI NE albumin, urine 0.2 mg/dL see note: normal Refer ence Range : Refer ence Range Not estab lishe d Not Available [address] [address] [place], [address], 06/10/2021 12:18:33 06/09/19 22 06/10/2021 ALBUM IN, [...] a diagn ostic categ ory. Not Available [facility] [address] [address] [place], [address], 06/10/2021 12:18:33 06/09/19 22 06/10/2021 COMPR EHENS ABBY METAB OLIC PANEL glucose 166 mg/dL 65-99 high Fasti ng refer ence inter aiden For someo ne witho ut known diabe abby, a gluco se value >125 mg/dL indic ates that they may have diabe abby and this shoul d be confi rmed with a follo w-up test. Not Available [facility] [address] [place], [address], 06/10/2021 12:18:32 06/09/19 22 06/10/2021 COMPR EHENS ABBY METAB OLIC PANEL urea nitrogen (BUN) 17 mg/dL 7-25 normal Not Available [facility] [address] [address] [place], [address], 06/10/2021 12:18:32 06/09/19 22 06/10/2021 COMPR EHENS ABBY METAB OLIC PANEL creatinine 1.14 mg/dL 0.50-0 .99 high For patie nts >49 years of age, the refer ence limit for Creat inine is appro ximat jose 13% highe r for peopl e ident ified as Afric an-Am jailyn n. Not Available [facility] [address] [place], [address], 06/10/2021 12:18:32 06/09/19 22 06/10/2021 COMPR EHENS ABBY METAB OLIC PANEL eGFR non-afr. south korean 51 mL/mi n/1.7 3m2 > or = 60 low Not Available [address], [address], 06/10/2021 12:18:32 06/09/19 22 06/10/2021 COMPR EHENS ABBY METAB OLIC PANEL eGFR 59 mL/mi n/1.7 3m2 > or = 60 low Not Available [address], [address], 06/10/2021 12:18:32 06/09/19 22 06/10/2021 COMPR EHENS ABBY METAB OLIC PANEL BUN/creatini ne ratio 15 (calc ) 6-22 normal Not Available [address], [address], 06/10/2021 12:18:32 06/09/19 22 06/10/2021 COMPR EHENS ABBY METAB OLIC PANEL sodium 139 mmol/ L 135-14 6 normal Not Available [address], [address], 06/10/2021 12:18:32 06/09/19 22 06/10/2021 COMPR EHENS ABBY METAB OLIC PANEL potassium 4.4 mmol/ L 3.5-5. 3 normal Not Available [address], [address], 06/10/2021 12:18:32 06/09/19 22 06/10/2021 COMPR EHENS ABBY METAB OLIC PANEL chloride 103 mmol/ L 98-110 normal Not Available [address], [address], 06/10/2021 12:18:32 06/09/19 22 06/10/2021 COMPR EHENS ABBY METAB OLIC PANEL carbon dioxide 25 mmol/ L 20-32 normal Not Available [address], [address], 06/10/2021 12:18:32 06/09/19 22 06/10/2021 COMPR EHENS ABBY METAB OLIC PANEL calcium 9.7 mg/dL 8.6-10 .4 normal Not Available [address], [address], 06/10/2021 12:18:32 06/09/19 22 06/10/2021 COMPR EHENS ABBY METAB OLIC PANEL protein, total 7.3 g/dL 6.1-8. 1 normal Not Available [address], [address], 06/10/2021 12:18:32 06/09/19 22 06/10/2021 COMPR EHENS ABBY METAB OLIC PANEL albumin 4.7 g/dL 3.6-5. 1 normal Not Available [address], [address], 06/10/2021 12:18:32 06/09/19 22 06/10/2021 COMPR EHENS ABBY METAB OLIC PANEL globulin 2.6 g/dL_ (calc ) 1.9-3. 7 normal Not Available [address], [address], 06/10/2021 12:18:32 06/09/19 22 06/10/2021 COMPR EHENS ABBY METAB OLIC PANEL albumin/glob ulin ratio 1.8 (calc ) 1.0-2. 5 normal Not Available [address], [address], 06/10/2021 12:18:32 06/09/19 22 06/10/2021 COMPR EHENS ABBY METAB OLIC PANEL bilirubin, total 0.4 mg/dL 0.2-1. 2 normal Not Available [address], [address], 06/10/2021 12:18:32 06/09/19 22 06/10/2021 COMPR EHENS ABBY METAB OLIC PANEL alkaline phosphatase 95 U/L 37-153 normal Not Available [facility] [employer] [address] [address] [place], [address], 06/10/2021 12:18:32 06/09/19 22 06/10/2021 COMPR EHENS ABBY METAB OLIC PANEL AST 19 U/L 10-35 normal Not Available [address], [address], 06/10/2021 12:18:32 06/09/19 22 06/10/2021 COMPR EHENS ABBY METAB OLIC PANEL ALT 22 U/L 6-29 normal Not Available [address], [address], 06/10/2021 12:18:32 06/09/19 22 06/10/2021 LIPID PANEL , STAND JOSE ENRIQUE cholesterol, total 215 mg/dL <200 high Not Available [address], [address], 06/10/2021 12:18:32 06/09/19 22 06/10/2021 LIPID PANEL , STAND JOSE ENRIQUE HDL cholesterol 51 mg/dL > or = 50 normal Not Available [address], [address], 06/10/2021 12:18:32 06/09/19 22 06/10/2021 LIPID PANEL , STAND JOSE ENRIQUE triglyceride s 223 mg/dL <150 high If a non-f astin g speci men was colle cted, consi dheeraj repea t trigl yceri de testi ng on a fasti ng speci men if clini sam indic ated. Abhishek amezquita et al. J. of Clin. Lipid ol. 2015; 9:129 -169. Not Available [address] [place], [address], 06/10/2021 12:18:32 06/09/19 22 06/10/2021 LIPID PANEL [...] 310(1 9): 2061- 2068 (http ://ed ucati on.Source Audio. com/f aq/FA Q164) Not Available [facility] [address] [address] [address], [place], [address], 06/10/2021 12:18:32 06/09/19 22 06/10/2021 LIPID PANEL , STAND JOSE ENRIQUE chol/HDLC ratio 4.2 (calc ) <5.0 normal Not Available [facility] [address] [address], [place], [address], 06/10/2021 12:18:32 06/09/19 22 06/10/2021 LIPID PANEL , STAND JOSE ENRIQUE non HDL cholesterol 164 mg/dL _(roxie c) <130 high For patie nts with diabe abby plus 1 major ASCVD risk facto r, treat ing to a non-H DL-C goal of <100 mg/dL (LDL- C of <70 mg/dL ) is puneet stafford optio n. Not Available [facility] [address] [address], [place], [address], 06/10/2021 12:18:32 10/29/19 22 10/29/2021 HEMOG LOBIN [...] diabe abby for child adebayo. Not Available [address], [address], 10/29/2021 12:12:32 10/29/19 22 10/29/2021 TSH+F REE T4 TSH 1.43 mIU/L 0.40-4 .50 normal Not Available [address], [address], 10/29/2021 12:12:32 10/29/19 22 10/29/2021 TSH+F REE T4 T4, free 0.9 NG/dL 0.8-1. 8 normal Not Available [address], [address], 10/29/2021 12:12:32 10/29/19 22 10/29/2021 ALBUM IN, RANDO M URINE W/CRE ATINI NE creatinine, random urine 79 mg/dL 20-275 normal Not Available [address], [address], 10/29/2021 12:12:31 10/29/19 22 10/29/2021 ALBUM IN, RANDO M URINE W/CRE ATINI NE albumin, urine 1.1 mg/dL see note: normal Refer ence Range : Refer ence Range Not estab lishe d Not Available [address], [address], 10/29/2021 12:12:31 10/29/19 22 10/29/2021 ALBUM IN, [...] a diagn ostic categ ory. Not Available [address] [place], [address], 10/29/2021 12:12:31 10/29/19 22 10/29/2021 COMPR EHENS ABBY METAB OLIC PANEL glucose 87 mg/dL 65-99 normal Fasti ng refer ence inter aiden Not Available [address], [address], 10/29/2021 12:12:31 10/29/19 22 10/29/2021 COMPR EHENS ABBY METAB OLIC PANEL urea nitrogen (BUN) 9 mg/dL 7-25 normal Not Available [facility] [address] [place], [address], 10/29/2021 12:12:31 10/29/19 22 10/29/2021 COMPR EHENS ABBY METAB OLIC PANEL creatinine 0.91 mg/dL 0.50-0 .99 normal For patie nts >49 years of age, the refer ence limit for Creat inine is appro ximat jose 13% highe r for peopl e ident ified as Afric an-Am jailyn n. Not Available [address], [address], 10/29/2021 12:12:31 10/29/19 22 10/29/2021 COMPR EHENS ABBY METAB OLIC PANEL eGFR non-afr. south korean 67 mL/mi n/1.7 3m2 > or = 60 normal Not Available [address], [address], 10/29/2021 12:12:31 10/29/19 22 10/29/2021 COMPR EHENS ABBY METAB OLIC PANEL eGFR 77 mL/mi n/1.7 3m2 > or = 60 normal Not Available [address], [address], 10/29/2021 12:12:31 10/29/19 22 10/29/2021 COMPR EHENS ABBY METAB OLIC PANEL BUN/creatini ne ratio not applic able (calc ) 6-22 Not Available [address], [address], 10/29/2021 12:12:31 10/29/19 22 10/29/2021 COMPR EHENS ABBY METAB OLIC PANEL sodium 143 mmol/ L 135-14 6 normal Not Available [address], [address], 10/29/2021 12:12:31 10/29/19 22 10/29/2021 COMPR EHENS ABBY METAB OLIC PANEL potassium 4.3 mmol/ L 3.5-5. 3 normal Not Available [address], [address], 10/29/2021 12:12:31 10/29/19 22 10/29/2021 COMPR EHENS ABBY METAB OLIC PANEL chloride 105 mmol/ L 98-110 normal Not Available [address], [address], 10/29/2021 12:12:31 10/29/19 22 10/29/2021 COMPR EHENS ABBY METAB OLIC PANEL carbon dioxide 31 mmol/ L 20-32 normal Not Available [address], [address], 10/29/2021 12:12:31 10/29/19 22 10/29/2021 COMPR EHENS ABBY METAB OLIC PANEL calcium 9.6 mg/dL 8.6-10 .4 normal Not Available [address], [address], 10/29/2021 12:12:31 10/29/19 22 10/29/2021 COMPR EHENS ABBY METAB OLIC PANEL protein, total 6.8 g/dL 6.1-8. 1 normal Not Available [address], [address], 10/29/2021 12:12:31 10/29/19 22 10/29/2021 COMPR EHENS ABBY METAB OLIC PANEL albumin 4.2 g/dL 3.6-5. 1 normal Not Available [address], [address], 10/29/2021 12:12:31 10/29/19 22 10/29/2021 COMPR EHENS ABBY METAB OLIC PANEL globulin 2.6 g/dL_ (calc ) 1.9-3. 7 normal Not Available [address], [address], 10/29/2021 12:12:31 10/29/19 22 10/29/2021 COMPR EHENS ABBY METAB OLIC PANEL albumin/glob ulin ratio 1.6 (calc ) 1.0-2. 5 normal Not Available [address], [address], 10/29/2021 12:12:31 10/29/19 22 10/29/2021 COMPR EHENS ABBY METAB OLIC PANEL bilirubin, total 0.5 mg/dL 0.2-1. 2 normal Not Available [address], [address], 10/29/2021 12:12:31 10/29/19 22 10/29/2021 COMPR EHENS ABBY METAB OLIC PANEL alkaline phosphatase 99 U/L 37-153 normal Not Available [address], [address], 10/29/2021 12:12:31 10/29/19 22 10/29/2021 COMPR EHENS ABBY METAB OLIC PANEL AST 18 U/L 10-35 normal Not Available [address], [address], 10/29/2021 12:12:31 10/29/19 22 10/29/2021 COMPR EHENS ABBY METAB OLIC PANEL ALT 15 U/L 6-29 normal Not Available [address], [address], 10/29/2021 12:12:31 10/29/19 22 10/29/2021 LIPID PANEL , STAND JOSE ENRIQUE cholesterol, total 160 mg/dL <200 normal Not Available [address], [address], 10/29/2021 12:12:30 10/29/19 22 10/29/2021 LIPID PANEL , STAND JOSE ENRIQUE HDL cholesterol 49 mg/dL > or = 50 low Not Available [address], [address], 10/29/2021 12:12:30 10/29/19 22 10/29/2021 LIPID PANEL , STAND JOSE ENRIQUE triglyceride s 266 mg/dL <150 high If a non-f astin g speci men was colle cted, consi dheeraj repea t trigl yceri de testi ng on a fasti ng speci men if clini sam indic ated. Abhishek amezquita et al. J. of Clin. Lipid ol. 2015; 9:129 -169. Not Available [facility] [address] [place] [address], [address], 10/29/2021 12:12:30 10/29/19 22 10/29/2021 LIPID PANEL [...] 310(1 9): 2061- 2068 (http ://ed ucati on.Source Audio. com/f aq/FA Q164) Not Available [facility] [address] [place], [address], 10/29/2021 12:12:30 10/29/19 22 10/29/2021 LIPID PANEL , STAND JOSE ENRIQUE chol/HDLC ratio 3.3 (calc ) <5.0 normal Not Available [facility] [address] [facility] [place], [address], 10/29/2021 12:12:30 10/29/19 22 10/29/2021 LIPID PANEL , STAND JOSE ENRIQUE non HDL cholesterol 111 mg/dL _(roxie c) <130 normal For patie nts with diabe abby plus 1 major ASCVD risk facto r, treat ing to a non-H DL-C goal of <100 mg/dL (LDL- C of <70 mg/dL ) is consi dered a thera peuti c optio n. Not Available [facility] [address] [place], [address], 10/29/2021 12:12:30 02/26/2002/26/2022 HEMOG LOBIN A1C hemoglobin A1C 6.8 %_of_ total _HGB <5.7 high For someo ne witho ut known diabe abby, a hemog lobin A1c value of 6.5% or great er indic ates that they may have diabe abyb and this shoul d be confi rmed [...] diabe abby for child adebayo. Not Available [address] [place], [address], 02/26/2022 15:45:07 02/26/20 22 02/26/2022 TSH TSH 3.04 mIU/L 0.40-4 .50 normal Not Available [facility] [address] [address] [place], [address], 02/26/2022 15:45:07 02/26/20 22 02/26/2022 T4, FREE T4, free 1.1 NG/dL 0.8-1. 8 normal Not Available [facility] [address] [address] [place], [address], 02/26/2022 15:45:06 02/26/20 22 02/26/2022 ALBUM IN, RANDO M URINE W/CRE ATINI NE creatinine, random urine 67 mg/dL 20-275 normal Not Available [address] [address] [place], [address], 02/26/2022 15:45:06 02/26/20 22 02/26/2022 ALBUM IN, RANDO M URINE W/CRE ATINI NE albumin, urine 0.2 mg/dL see note: normal Refer ence Range : Refer ence Range Not estab lishe d Not Available [facility] [address] [address] [address], [place], [address], 02/26/2022 15:45:06 02/26/20 22 02/26/2022 ALBUM IN, [...] a diagn ostic categ ory. Not Available [facility] [address] [address] [facility] [place], [address], 02/26/2022 15:45:06 02/26/20 22 02/26/2022 COMPR EHENS ABBY METAB OLIC PANEL glucose 121 mg/dL 65-99 high Fasti ng refer ence inter aiden For someo ne witho ut known diabe abby, a gluco se value betwe en 100 and 125 mg/dL is consi stent with predi abete s and shoul d be confi rmed with a follo w-up test. Not Available [facility] [address] [address] , [place], [address], 02/26/2022 15:45:05 02/26/20 22 02/26/2022 COMPR EHENS ABBY METAB OLIC PANEL urea nitrogen (BUN) 12 mg/dL 7-25 normal Not Available [address] [address] [place], [address], 02/26/2022 15:45:05 02/26/20 22 02/26/2022 COMPR EHENS ABBY METAB OLIC PANEL creatinine 0.83 mg/dL 0.50-1 .05 normal Not Available [address] [address] [place], [address], 02/26/2022 15:45:05 02/26/20 22 02/26/2022 COMPR EHENS [...] kdoqi /gfr% 5Fcal culat or Not Available [address], [address], 02/26/2022 15:45:05 02/26/20 22 02/26/2022 COMPR EHENS ABBY METAB OLIC PANEL BUN/creatini ne ratio not applic able (calc ) 6-22 Not Available [address] [address] [place], [address], 02/26/2022 15:45:05 02/26/20 22 02/26/2022 COMPR EHENS ABBY METAB OLIC PANEL sodium 139 mmol/ L 135-14 6 normal Not Available [address], [address], 02/26/2022 15:45:05 02/26/20 22 02/26/2022 COMPR EHENS ABBY METAB OLIC PANEL potassium 4.5 mmol/ L 3.5-5. 3 normal Not Available [address] [address] [place], [address], 02/26/2022 15:45:05 02/26/20 22 02/26/2022 COMPR EHENS ABBY METAB OLIC PANEL chloride 103 mmol/ L 98-110 normal Not Available [address], [address], 02/26/2022 15:45:05 02/26/20 22 02/26/2022 COMPR EHENS ABBY METAB OLIC PANEL carbon dioxide 28 mmol/ L 20-32 normal Not Available [address], [address], 02/26/2022 15:45:05 02/26/20 22 02/26/2022 COMPR EHENS ABBY METAB OLIC PANEL calcium 9.4 mg/dL 8.6-10 .4 normal Not Available [address], [address], 02/26/2022 15:45:05 02/26/20 22 02/26/2022 COMPR EHENS ABBY METAB OLIC PANEL protein, total 6.7 g/dL 6.1-8. 1 normal Not Available [address], [address], 02/26/2022 15:45:05 02/26/20 22 02/26/2022 COMPR EHENS ABBY METAB OLIC PANEL albumin 4.0 g/dL 3.6-5. 1 normal Not Available [address], [address], 02/26/2022 15:45:05 02/26/20 22 02/26/2022 COMPR EHENS ABBY METAB OLIC PANEL globulin 2.7 g/dL_ (calc ) 1.9-3. 7 normal Not Available [address], [address], 02/26/2022 15:45:05 02/26/20 22 02/26/2022 COMPR EHENS ABBY METAB OLIC PANEL albumin/glob ulin ratio 1.5 (calc ) 1.0-2. 5 normal Not Available [address], [address], 02/26/2022 15:45:05 02/26/20 22 02/26/2022 COMPR EHENS ABBY METAB OLIC PANEL bilirubin, total 0.3 mg/dL 0.2-1. 2 normal Not Available [address], [address], 02/26/2022 15:45:05 02/26/20 22 02/26/2022 COMPR EHENS ABBY METAB OLIC PANEL alkaline phosphatase 90 U/L 37-153 normal Not Available [address], [address], 02/26/2022 15:45:05 02/26/20 22 02/26/2022 COMPR EHENS ABBY METAB OLIC PANEL AST 14 U/L 10-35 normal Not Available [address], [address], 02/26/2022 15:45:05 02/26/20 22 02/26/2022 COMPR EHENS ABBY METAB OLIC PANEL ALT 13 U/L 6-29 normal Not Available [address], [address], 02/26/2022 15:45:05 02/26/20 22 02/26/2022 LIPID PANEL , STAND JOSE ENRIQUE cholesterol, total 109 mg/dL <200 normal Not Available [address], [address], 02/26/2022 15:45:05 02/26/20 22 02/26/2022 LIPID PANEL , STAND JOSE ENRIQUE HDL cholesterol 34 mg/dL > or = 50 low Not Available [address], [address], 02/26/2022 15:45:05 02/26/20 22 02/26/2022 LIPID PANEL , STAND JOSE ENRIQUE triglyceride s 192 mg/dL <150 high Not Available [facility] [address] [place], [address], 02/26/2022 15:45:05 02/26/20 22 02/26/2022 LIPID PANEL [...] 2061- 2068 (http ://ed ucati on.Qu Majo CSID. com/f aq/FA Q164) Not Available [facility] [address] [place], [address], 02/26/2022 15:45:05 02/26/20 22 02/26/2022 LIPID PANEL , STAND JOSE ENRIQUE chol/HDLC ratio 3.2 (calc ) <5.0 normal Not Available [facility] [address] [place], [address], 02/26/2022 15:45:05 02/26/20 22 02/26/2022 LIPID PANEL , STAND JOSE ENRIQUE non HDL cholesterol 75 mg/dL _(roxie c) <130 normal For patie nts with diabe abby plus 1 major ASCVD risk facto r, treat ing to a non-H DL-C goal of <100 mg/dL (LDL- C of <70 mg/dL ) is consi dered a thera peuti c optio n. Not Available [facility] [address] [place], [address], 02/26/2022 15:45:05 09/03/19 23 09/14/2022 LIPID PANEL , STAND JOSE ENRIQUE cholesterol, total 130 mg/dL <200 normal Not Available [address], [address], 09/14/2022 15:23:05 09/03/19 23 09/14/2022 LIPID PANEL , STAND JOSE ENRIQUE HDL cholesterol 42 mg/dL > or = 50 low Not Available [address], [address], 09/14/2022 15:23:05 09/03/19 23 09/14/2022 LIPID PANEL , STAND JOSE ENRIQUE triglyceride s 150 mg/dL <150 high Not Available [address], [address], 09/14/2022 15:23:05 09/03/19 23 09/14/2022 LIPID PANEL [...] 2061- 2068 (http ://ed ucati on.Qu Majo lopezGlarity. com/f aq/FA Q164) Not Available [address], [address], 09/14/2022 15:23:05 09/03/19 23 09/14/2022 LIPID PANEL , STAND JOSE ENRIQUE chol/HDLC ratio 3.1 (calc ) <5.0 normal Not Available [address] [place], [address], 09/14/2022 15:23:05 09/03/19 23 09/14/2022 LIPID PANEL , STAND JOSE ENRIQUE non HDL cholesterol 88 mg/dL _(roxie c) <130 normal For patie nts with diabe abby plus 1 major ASCVD risk facto r, treat ing to a non-H DL-C goal of <100 mg/dL (LDL- C of <70 mg/dL ) is consi dered a thera peuti c optio n. Not Available [address] [address] [place], [address], 09/14/2022 15:23:05 09/03/19 23 09/14/2022 COMPR EHENS ABBY METAB OLIC PANEL glucose 258 mg/dL 65-99 high Fasti ng refer ence inter aiden For someo ne witho ut known diabe abby, a gluco se value >125 mg/dL indic ates that they may have diabe abby and this shoul d be confi rmed with a follo w-up test. Not Available [facility] [address] [place], [address], 09/14/2022 15:23:06 09/03/19 23 09/14/2022 COMPR EHENS ABBY METAB OLIC PANEL urea nitrogen (BUN) 11 mg/dL 7-25 normal Not Available [facility] [address] [place], [address], 09/14/2022 15:23:06 09/03/19 23 09/14/2022 COMPR EHENS ABBY METAB OLIC PANEL creatinine 0.87 mg/dL 0.50-1 .05 normal Not Available [facility] [address], [address], 09/14/2022 15:23:06 09/03/19 23 09/14/2022 COMPR EHENS [...] kdoqi /gfr% 5Fcal culat or Not Available [address] [place], [address], 09/14/2022 15:23:06 09/03/19 23 09/14/2022 COMPR EHENS ABBY METAB OLIC PANEL BUN/creatini ne ratio NOT APPLIC ABLE (calc ) 6-22 Not Available [address], [address], 09/14/2022 15:23:06 09/03/19 23 09/14/2022 COMPR EHENS ABBY METAB OLIC PANEL sodium 138 mmol/ L 135-14 6 normal Not Available [address], [address], 09/14/2022 15:23:06 09/03/19 23 09/14/2022 COMPR EHENS ABBY METAB OLIC PANEL potassium 4.7 mmol/ L 3.5-5. 3 normal Not Available [address], [address], 09/14/2022 15:23:06 09/03/19 23 09/14/2022 COMPR EHENS ABBY METAB OLIC PANEL chloride 103 mmol/ L 98-110 normal Not Available [address], [address], 09/14/2022 15:23:06 09/03/19 23 09/14/2022 COMPR EHENS ABBY METAB OLIC PANEL carbon dioxide 28 mmol/ L 20-32 normal Not Available [address], [address], 09/14/2022 15:23:06 09/03/19 23 09/14/2022 COMPR EHENS ABBY METAB OLIC PANEL calcium 9.6 mg/dL 8.6-10 .4 normal Not Available [address], [address], 09/14/2022 15:23:06 09/03/19 23 09/14/2022 COMPR EHENS ABBY METAB OLIC PANEL protein, total 7.2 g/dL 6.1-8. 1 normal Not Available [address], [address], 09/14/2022 15:23:06 09/03/19 23 09/14/2022 COMPR EHENS ABBY METAB OLIC PANEL albumin 4.3 g/dL 3.6-5. 1 normal Not Available [address], [address], 09/14/2022 15:23:06 09/03/19 23 09/14/2022 COMPR EHENS ABBY METAB OLIC PANEL globulin 2.9 g/dL_ (calc ) 1.9-3. 7 normal Not Available [address], [address], 09/14/2022 15:23:06 09/03/19 23 09/14/2022 COMPR EHENS ABBY METAB OLIC PANEL albumin/glob ulin ratio 1.5 (calc ) 1.0-2. 5 normal Not Available [address], [address], 09/14/2022 15:23:06 09/03/19 23 09/14/2022 COMPR EHENS ABBY METAB OLIC PANEL bilirubin, total 0.4 mg/dL 0.2-1. 2 normal Not Available [address], [address], 09/14/2022 15:23:06 09/03/19 23 09/14/2022 COMPR EHENS ABBY METAB OLIC PANEL alkaline phosphatase 97 U/L 37-153 normal Not Available [address] [address] [place], [address], 09/14/2022 15:23:06 09/03/19 23 09/14/2022 COMPR EHENS ABBY METAB OLIC PANEL AST 11 U/L 10-35 normal Not Available [address] [address] [place], [address], 09/14/2022 15:23:06 09/03/19 23 09/14/2022 COMPR EHENS ABBY METAB OLIC PANEL ALT 12 U/L 6-29 normal Not Available [address] [address] [place], [address], 09/14/2022 15:23:06 09/03/19 23 09/14/2022 ALBUM IN, RANDO M URINE W/CRE ATINI NE creatinine, random urine 21 mg/dL 20-275 normal Not Available [address] [address] [place], [address], 09/14/2022 15:23:06 09/03/19 23 09/14/2022 ALBUM IN, RANDO M URINE W/CRE ATINI NE albumin, urine <0.2 mg/dL see note: normal Refer ence Range : Refer ence Range Not estab lishe d Not Available [address], [address], 09/14/2022 15:23:06 09/03/19 23 09/14/2022 ALBUM IN, [...] a diagn ostic categ ory. Not Available [facility] [address] [place], [address], 09/14/2022 15:23:06 09/03/1909/14/2022 DEXAM ETHAS ONE dexamethason [...] for clini roxie purpo ses. Not Available [facility] [address] [address] [place], [address], 09/14/2022 15:23:07 09/03/1909/14/2022 T4, FREE T4, free 0.9 NG/dL 0.8-1. 8 normal Not Available [facility] [address] [address] [place], [address], 09/14/2022 15:23:08 09/03/1909/14/2022 TSH TSH 0.81 mIU/L 0.40-4 .50 normal Not Available [facility] [address] [address] [place], [address], 09/14/2022 15:23:08 09/03/1909/14/2022 CORTI NERI, A.M. cortisol, A.M. 1.4 mcg/d L low Refer ence Range 8 a.m. (7-9 a.m.) Speci men: 4.0-2 2.0 Not Available [address] [address] [place], [address], 09/14/2022 15:23:09 09/03/19 23 09/14/2022 HEMOG LOBIN [...] diabe abby for child adebayo. Not Available [address] [address] [place], [address], 09/14/2022 15:23:09 10/04/19 23 10/11/2022 ACTH, PLASM A acth, plasma 29 pg/mL 6-50 Refer ence range appli es only to speci mens colle cted betwe en 7am-1 0am. Not Available [facility] [address] [address] [place], [address], 10/12/2022 00:03:05 10/04/19 23 10/11/2022 CORTI NERI, FREE, 24 HOUR URINE total volume 1000 mL Not Available [facility] [address] [address] [place], [address], 10/12/2022 00:03:06 10/04/19 23 10/11/2022 CORTI NERI, FREE, 24 HOUR URINE cortisol, free, urine 12.1 mcg/2 4_h 4.0-50 .0 Not Available [facility] [address], [address], 10/12/2022 00:03:06 10/04/1910/11/2022 CORTI NERI, FREE, 24 HOUR URINE cortisol, free, urine 12.5 mcg/g _crea t Refer ence Range : ADULT S: 3.1-4 2.3 Not Available [facility] [address] [address] [place], [address], 10/12/2022 00:03:06 10/04/1910/11/2022 CORTI NERI, FREE, 24 [...] for clini roxie purpo ses. Not Available [facility] [address] [place], [address], 10/12/2022 00:03:06 10/04/1910/11/2022 CORTI NERI, LC/MS , SALIV A, 2 SAMPL ES draw date 1 023 Not Available [facility] [address] [address] [place], [address], 10/12/2022 00:03:06 10/04/1910/11/2022 CORTI NERI, LC/MS , SALIV A, 2 SAMPL ES draw time 1 2330 Not Available [facility] [address] [place], [address], 10/12/2022 00:03:06 10/04/19 23 10/11/2022 CORTI NERI, [...] for clini roxie purpo ses. Not Available [facility] [address] [place], [address], 10/12/2022 00:03:06 10/04/19 23 10/11/2022 CORTI NERI, LC/MS , SALIV A, 2 SAMPL ES draw date 2 023 Not Available [facility] [address] [place], [address], 10/12/2022 00:03:06 10/04/19 23 10/11/2022 CORTI NERI, LC/MS , SALIV A, 2 SAMPL ES draw time 2 2330 Not Available [facility] [address] [place], [address], 10/12/2022 00:03:06 10/04/19 23 10/11/2022 CORTI NERI, [...] for clini roxie purpo ses. Not Available [facility] [address] [place], [address], 10/12/2022 00:03:06 10/04/19 23 10/11/2022 CORTI NERI, A.M. cortisol, A.M. 20.0 mcg/d L normal Refer ence Range 8 a.m. (7-9 a.m.) Speci men: 4.0-2 2.0 Not Available [facility] [address] [place], [address], 10/12/2022 00:03:07 11/04/19 23 11/03/2022 CT, adren al, w/ wo contr ast No observ ation record ed. [facility] [address], [place], [address], 11/14/2022 15:31:03 11/30/19 23 11/29/2022 MAMMO , scree aly, digit al, bilat eral No observ ation record ed. [email or web address] [facility] [address], [place], [address], 12/09/2022 14:24:07 12/01/19 23 11/29/2022 bone densi ty No observ ation record ed. [email or web address] [facility] [address], [place], [address], 11/30/2022 20:16:19 Result Notes None recorded. Problems Name Problem SNOMED Code Status Onset Date Resolution Date Notes Provider Name and Address Organization Details Recorded Time Uncontrolled type 2 diabetes mellitus 402374941 Active 2021 Not Available [facility] 3 01:55:21 Well controlled type 2 diabetes mellitus 834110875 Active 2022 Not Available [facility] 3 01:55:21 Dyslipidemia 934238984 Active 2022 Not Available [facility] 3 01:55:21 Menopausal and postmenopausa l disorders 828104880 Active 2022 Not Available [facility] 3 01:55:21 Weight gain 5870831 Active 2022 Not Available [facility] 3 01:55:21 Abnormal cortisol 112337529 Active 2022 Not Available [facility] 3 01:55:21 Adrenal adenoma 473707852 Active 2022 Not Available [facility] 3 01:55:21 Adrenal Nathalie's syndrome 714251543 Active 2022 Not Available [facility] 3 01:55:21 Problem Notes None recorded. Procedures Surgical History Date Name Laterality Status Provider Name and Address Organization Details Recorded Time Colonoscopy completed Not Available [facility] 06/22/2022 13:12:18 Imaging Results Imaging Date Name Status LastModified by Organiz ation Details LastModified Time 11/03/2022 CT, adrenal, w/ wo contrast completed [email or web address] [facility] [address], [place], [address], 11/14/2022 15:31:03 11/29/2022 MAMMO, screening, digital, bilateral completed [email or web address] [address], [address], 12/09/2022 14:24:07 11/29/2022 bone density completed [address], [place], [address], 11/30/2022 20:16:19 Procedure Notes None recorded. Medical [...] Date Recorded Body mass index (BMI) Body height Oxygen saturation Oxygen saturation in Arterial blood by Pulse oximetry Heart rate Body temperature Body weight Systolic blood pressure Diastolic blood pressure Provider Name and Address Organization Details Last Updated DateTime 2 33.1 kg/m2 160.02 cm 96 % 96 % 72 /min 97.7 [degF] 32353.7 7 g 120 mm[Hg] 82 mm[Hg] Not Available [facility] 3 13:12:33 Date Recorded Body mass index (BMI) Body height Oxygen saturation Oxygen saturation in Arterial blood by Pulse oximetry Heart rate Body temperature Body weight Systolic blood pressure Diastolic blood pressure Provider Name and Address Organization Details Last Updated DateTime 2 32.4 kg/m2 160.02 cm 99 % 99 % 79 /min 97.8 [degF] 51818.4 g 110 mm[Hg] 80 mm[Hg] Not Available [facility] 3 13:12:33 Date Recorded Body mass index (BMI) Body height Oxygen saturation Oxygen saturation in Arterial blood by Pulse oximetry Heart rate Body temperature Body weight Systolic blood pressure Diastolic blood pressure Provider Name and Address Organization Details Last Updated DateTime 2 32.9 kg/m2 160.02 cm 97 % 97 % 69 /min 97.8 [degF] 66406.1 8 g 110 mm[Hg] 75 mm[Hg] Not Available [facility] 3 13:12:33 Date Recorded Body height Body mass index (BMI) Body weight Body temperature Respiratory rate Heart rate Systolic blood pressure Diastolic blood pressure Provider Name and Address Organization Details Last Updated DateTime 3 160.02 cm 32.9 kg/m2 51239.4 6 g 97.3 [degF] 20 /min 95 /min 144 mm[Hg] 91 mm[Hg] ZA Grimes [place] [facility] [employer] [facility] 3 14:52:28 Social History Question Answer Notes LastModified by Organizat ion Details LastModified Time Tobacco Smoking Status Current Every Day Smoker Not Available [facility] 06/22/2022 13:12:14 What Is Your Level Of Alcohol Consumption? None [id number] Information not available 06/22/2022 What Is Your Level Of Caffeine Consumption? Moderate [id number] Information not available 06/22/2022 In The 14 Days Before Symptom Onset, Have You Had Close Contact With A Laboratory-confirm ed COVID-19 While That Case Was Ill? No [id number] Information not available 06/22/2022 In The 14 Days Before Symptom Onset, Have You Had Close Contact With A Person Who Is Under Investigation For COVID-19 While That Person Was Ill? No [id number] Information not available 06/22/2022 What Type Of Diet Are You Following? REGULAR [id number] Information not available 06/22/2022 What Is Your Relationship Status? [id number] Information not available 06/22/2022 Do You Use Your Seat Belt Or Car Seat Routinely? Yes [id number] Information not available 06/22/2022 How Much Tobacco Do You Smoke? 1 PPW [id number] Information not available 06/22/2022 Do You Use Any Illicit Or Recreational Drugs? No [id number] Information not available 06/22/2022 Have You Recently Traveled Abroad? No [id number] Information not available 06/22/2022 Do You Have Any Dietary Restrictions? No [id number] Information not available 06/22/2022 Sex: Female Functional Status None recorded. Mental Status None recorded. Family History Nothing Reported. Medical History Condition Response LUNG DISEASE/DISORDER COPD Y HIGH CHOLESTEROL / HYPERLIPIDEMIA Y EYE PROBLEMS Y HAVE YOU BEEN HOSPITALIZED OR SEEN IN [facility] ER IN THE PAST YEAR ? Y STROKE/TIA Y GERD/NAUSEA Y USE OF BLOOD THINNERS Y DIABETES, TYPE SKIN PROBLEMS Y GI PROBLEMS Y HEART DISEASE/HEART PROBLEMS Y LIVER DISEASE Y CANCER: SPECIFY Y Gynecological HistoryNo gynecological history recorded. Obstetrics History GPAL:G 0 P 0 0 0 0 Past Encounters Encounter ID Performer Location Encounter Start Date Encounter Closed Date Diagnosis/Indication Diagnosis SNOMED-CT Code Diagnosis ICD10 Code Diagnosis Note [id number] [facility] [address] [place] [address] 05/31/2021 00:00:00 05/31/2021 14:06:32 [id number] [facility] [address] [place] [address] 07/23/2021 00:00:00 07/23/2021 16:29:56 [id number] [facility] [address] [place] [address] 12/28/2021 00:00:00 12/28/2021 13:59:46 [id number] Yumiko Acosta MD [facility] [address] [place] [address] 08/09/2022 14:28:35 08/09/2022 15:17:25 Well controlled type 2 diabetes mellitus 981473847 E11.9 A1C of 6.8% down from 7.2%-carmen [...] DST to screen for hypercorti solism. Dyslipidemia 139150849 E 78.5 Continue statin therapy. Menopausal and postmenopausal disorders 029570693 N95.9 Send for bone density to screen for osteoporos is. Weight gain 1135146 R63. 5 Will send for low dose [...] informatio n in the electronic health record, independen ayana interpreti ng results and communicat ing results to the patient. RTC in 4 months. Patient was provided a handwritte n lab order which contains our fax number. If she chooses to go outside of the [facility] system to obtain labwork she was [...] Borrero Member ID Guarantor Name 08/09/2022 1 [facility] (MEDICARE REPLACEMENT/A DVANTAGE - HMO) [id number] Keyla Arreaga [id number] Keyla Arreaga Notes Date Note Type Note [...] her right ring finger removed- went to [place] we referred to Dr. De Souza. usually [...] 1.1 ng/mLmicroalbumin 3 ug/mgglucose 121 mg/dLCr normalLFT /192/34/49 Yumiko Acosta MD [address], [place], [address], [facility] 08/09/2022 15:19:30 OBGyn Episode No OBEpisode recorded.
--- OUTSIDE RECORDS SUMMARY | 2024-07-17 13:36 | XMS_ITS | Referral Summary ---
Author Organization [facility] [address] [facility] [address] [place] [address] Care Team Providers Care Vegetables Cook Name Role Phone Karan Ngo MD Unavailable Rohith Sen MD Primary Care Provider [phone] Encounters Date Type Department Care Team Description 05/06/2024 Telephone [facility] Cardiology [address] [place] [address] Karan Ngo MD from Last [...] 24 hr tabletIndications :Coronary artery disease of [place] artery of [place] heart with stable angina pectoris TAKE 1 [...] Problem Noted Date Diagnosed Date COPD exacerbation ([facility]) 10/10/2020 Acute on chronic respiratory failure with hypoxe brian 10/10/2020 Pancreatic cyst 03/23/2020 Type 2 diabetes mellitus wit h hyperglycemia, with long-term current use of insulin 03/16/2020 Assessment & Plan (03/16/2020 2:22 PM CYBER SECURITY ANALYST): Diagnosed in 2013- Had recurrent pancreatitis. Started [...] 03/16/2020 Assessment & Plan (03/16/2020 2:23 PM CYBER SECURITY ANALYST): Complicated with CAD Controlled with medication - [...] (11/02/2018): Added automatically from request for surgery [id number] Assessment & Plan (12/11/2018 5:10 PM CDT): [...] on file Legal Sex Female 1:49 PM CYBER SECURITY ANALYST Gender Identity Not on file Sexual Orientation [...] on file Medical Devices Implanted Type Area Commercial Analyst Device Identifier Shelf Expiration Date Model / Serial / Lot System Coronary Stent Synergy Pebax Everolimus Eluting [employer] [place] Chromium Plga L12 Mm L144 Cm Od2.25 Mm Radiopaque 1 Access Port Inflation Lumen Accepts .014 In Guidewire - [id number] Implanted:Qty: 1 on 04/06/2017 by Karan Ngo MD at [facility] [employer] [facility] 12/19/2017 [id number] / / [id number] Procedures Procedure Name Priority Date/Time Associated Diagnosis Comments POCT LIPID PANEL Routine 12/05/2023 11:2 5 AM CDT Lipid screening EGFR STAT 09/10/2021 3:31 PM CDT POCT HEMOGLOBIN A1C Routine 03/16/2020 2 :10 PM CYBER SECURITY ANALYST Type 2 diabetes mellitus with hyperglycemia, with [...] BLOOD ORDERABLES Tanika l Result [facility] CUELLAR ([place]) [address] [facility] Department [place] [address] * POCT hemoglobin A1c (03/16/2020 2:10 PM CYBER SECURITY ANALYST) Pathologist [facility] Hemoglobin A1C, POC 7.1 Blood specimen (specimen) 03/16/2020 2:10 PM CYBER SECURITY ANALYST Abena Ronquillo MD POINT OF CARE TEST ORDERABLES Final Result * DIABETES EYE EXAM (02/06/2019) Pathologist [facility] Diabetic Eye Exam Unknown us Historical Provider HEALTH MAINTENANCE Final Result from Last 3 Months or Most Recently Relevant to Health Maintenance Insurance [facility] MEDIC[facility] ADVANTAGE [facility] MED[facility] Advance Directives For more information, please contact: [phone] * Full Code (Latest Code Status on File) Date Activated Date Inactivated Comments 10/10/2020 6:56 PM 10/12/2020 5:57 PM * Full Code Date Activated Date Inactivated Comments 11/30/2018 7:41 AM 11/30/2018 1:32 PM * Full Code Date Activated Date Inactivated Comments 04/06/2017 3:48 PM 04/07/2017 2:06 PM Care Teams Vegetables Cook Relationship Specialty Start Date End Date Rohith Sen MD [address] [address] PCP - General Family Practice 12/05/23 Karan Ngo MD [address] [address] Consulting Physician Cardiology 11/02/18
--- OUTSIDE RECORDS SUMMARY | 2024-07-17 13:36 | XMS_ITS | Clinical Summary ---
Author Organization [facility] Address [address] [facility] [place] [address] Phone Care Team Providers Care Control Tower Radio Operator Name Role Phone Joseph Sweet MD Primary Care Provider Kenneth Ward DPM Unavailable Hermann Olivia DO Unavailable [phone] Naida Odonnell MD Unavailable Allergies Active [...] complete this topic Insurance MEDICARE Care Teams Control Tower Radio Operator Relationship Specialty Start Date End Date Joseph Sweet MD [address] [place] [address] PCP - General Family Medicine 06/12/15 Kenneth Ward DPM [address] [place] [address] Podiatry 06/12/15 Herm[place] [address] Gastroenterology 02/02/16 Naida Odonnell MD [address] [place] [address] Family Medicine 02/02/16
--- OUTSIDE RECORDS SUMMARY | 2024-07-17 13:36 | XMS_ITS | Data Portability ---
Author Organization [facility] Address [address] [place] [address] Care Team Providers Care Underground Roof Bolter Name Role Phone ELIZ GEORGE Brick Tender ABDULKADIR CRAFT OTHER RADHA LYNCH Primary Care Provider MIGUEL Agudelo Funeral Director And Embalmer Assessment No assessment recorded. Plan of Treatment Reminders Order Date Submit Date Provider Last Modified By Organization Details Last Modified Time Details Appointments None recorded. Lab amylase + lipase, serum 2018 019 THERESA [facility], [address] [facility], [facility] [address], [place], [address], 9 06:37:29 CMP, serum or plasma 2018 019 [facility]ER[facility]A [facility], [address] [facility], [facility] [address], [place], [address], 9 06:37:29 erythrocy te sedimenta tion rate by arturo n method 2018 019 THERESA [facility], [address] [facility], [facility], [place], [address], 9 06:37:30 Referral diabetic ophthalmo logy referral 2018 019 [email or web address] [facility], [address], [place], [address], 9 09:48:59 gastroent erologist referral 2018 019 [email or web address] Not available 9 17:41:39 gastroent erologist referral - Please call pt to schedule appointme nt, Thank you 2018 019 THERESA Abby Munoz, [address], [address], [place], [address], 9 13:40:42 Procedures None recorded. Surgeries None recorded. Imaging MAMMO, screening , digital, bilateral 2018 [facility], [address], [facility] [address], [place], [address], 9 15:48:23 Medication Orders Lyrica 50 mg capsule 2018 019 [facility], [address] [place] [address], [address], 0 09:21:41 Xeljanz XR 11 mg tablet,ex tended release 2018 019 crexford [facility], [address] [place] [address], [address], 9 10:46:38 Creon 6,000-19, 000-30,00 0 unit capsule,d elayed release 2018 019 kyoungma [facility], [address] [place] [address], [address], 9 11:58:52 Lantus U-100 Insulin 100 unit/mL subcutane ous solution 2018 019 jdeyto [id number], [address], [place], [place], [id number], 9 12:20:48 gabapenti n 300 mg capsule 2018 019 INTERFACE [facility] #[id number], [address], [place], [place], [id number], 9 11:45:34 guaifenes in ER 600 mg tablet, extended release 12 hr 2018 019 jeremi [id number], [address], [place], [place], [id number], 9 11:56:09 Patient TargetsNo targets recorded. 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 Supposed to be repeated 2014. Schedule for February Referring Physician: Eliz George ROAD PRODUCTION GENERAL MANAGER, Encounter Date: 12/03/2018 Results Created Date Observation Date Name Description Value Unit Range Abnormal Flag Note LastModifiedBy Organization Detail LastModifiedTime 11/21/19 19 11/21/2018 CMP, serum or plasm a glucose 251 mg/dL 65-99 above high normal Not Available [facility] ([facility]) [address] [facility], [place], [address], 11/21/2018 06:37:29 11/21/19 19 11/21/2018 CMP, serum or plasm a BUN 8 mg/dL 8-27 Not Available [facility] ([facility]) [address] [facility] [place], [address], 11/21/2018 06:37:29 11/21/1911/21/2018 CMP, serum or plasm a creatinine 0.75 mg/dL 0.57-1 .00 Not Available [facility] ([facility]) [address] [place], [address], 11/21/2018 06:37:29 11/21/1911/21/2018 CMP, serum or plasm a eGFR if nonafricn AM 86 mL/mi n/1.7 3 >59 Not Available [facility] ([facility]) [address] [facility] [place], [address], 11/21/2018 06:37:29 11/21/1911/21/2018 CMP, serum or plasm a eGFR if africn AM 99 mL/mi n/1.7 3 >59 Not Available [facility] ([facility]) [address] [facility] [place], [address], 11/21/2018 06:37:29 11/21/1911/21/2018 CMP, serum or plasm a BUN/creatini ne ratio 11 12-28 below low normal Not Available [facility] ([facility]) [address] [facility] [place], [address], 11/21/2018 06:37:29 11/21/1911/21/2018 CMP, serum or plasm a sodium 138 mmol/ L 134-14 4 Not Available [facility] ([facility]) [address] [facility] [place], [address], 11/21/2018 06:37:29 11/21/1911/21/2018 CMP, serum or plasm a potassium 4.3 mmol/ L 3.5-5. 2 Not Available [facility] ([facility]) [address] [facility] [place], [address], 11/21/2018 06:37:29 11/21/1911/21/2018 CMP, serum or plasm a chloride 101 mmol/ L 96-106 Not Available [facility] ([facility]) [address] [facility] [place], [address], 11/21/2018 06:37:29 11/21/1911/21/2018 CMP, serum or plasm a carbon dioxide, total 23 mmol/ L 20-29 Not Available [facility] ([facility]) [address] [facility] [place], [address], 11/21/2018 06:37:29 11/21/1911/21/2018 CMP, serum or plasm a calcium 9.3 mg/dL 8.7-10 .3 Not Available [facility] ([facility]) [address] [facility] [place], [address], 11/21/2018 06:37:29 11/21/1911/21/2018 CMP, serum or plasm a protein, total 6.6 g/dL 6.0-8. 5 Not Available [facility] ([facility]) [address] [facility] [place], [address], 11/21/2018 06:37:29 11/21/1911/21/2018 CMP, serum or plasm a albumin 4.0 g/dL 3.6-4. 8 Not Available [facility] ([facility]) [address] [facility] [place], [address], 11/21/2018 06:37:29 11/21/1911/21/2018 CMP, serum or plasm a globulin, total 2.6 g/dL 1.5-4. 5 Not Available [facility] ([facility]) [address] [facility] [place], [address], 11/21/2018 06:37:29 11/21/1911/21/2018 CMP, serum or plasm a A/G ratio 1.5 1.2-2. 2 Not Available [facility] ([facility]) [address] [facility] [place], [address], 11/21/2018 06:37:29 11/21/1911/21/2018 CMP, serum or plasm a bilirubin, total 0.4 mg/dL 0.0-1. 2 Not Available [facility] ([facility]) [address] [facility] [place], [address], 11/21/2018 06:37:29 11/21/1911/21/2018 CMP, serum or plasm a alkaline phosphatase 137 IU/L 39-117 above high normal Not Available [facility] ([facility]) [address] [facility] [place], [address], 11/21/2018 06:37:29 11/21/1911/21/2018 CMP, serum or plasm a AST (SGOT) 22 IU/L 0-40 Not Available [facility] ([facility]) [address] [facility] [place], [address], 11/21/2018 06:37:29 11/21/1911/21/2018 CMP, serum or plasm a ALT (SGPT) 22 IU/L 0-32 Not Available [facility] ([facility]) [address] [facility] [place], [address], 11/21/2018 06:37:29 11/21/19 19 11/21/2018 amyla se + lipas e, serum amylase 72 U/L 31-124 Not Available [facility] ([facility]) [address] [facility] [place], [address], 11/21/2018 06:37:29 11/21/1911/21/2018 amyla se + lipas e, serum lipase 49 U/L 14-72 Not Available [facility] ([facility]) [address] [facility] [place], [address], 11/21/2018 06:37:29 11/21/1911/21/2018 eryth rocyt e sedim entat ion rate by emeka zelaya metho d sedimentatio n rate-westerg adebayo 58 mm/HR 0-40 above high normal Not Available [facility] ([facility]) [address], [place], [address], 11/21/2018 06:37:30 08/05/19 19 08/03/2018 CT, abdom en + pelvi s, w/ contr ast No observ ation record ed. [facility] ([facility]) [address] [facility], [place], [address], 08/06/2018 09:32:46 12/13/19 19 12/12/2018 MAMMO , scree aly, digit al, bilat eral No observ ation record ed. [address] (Imaging) [address], [place], [address], 01/01/2019 10:13:18 Result Notes None recorded. Problems Name Problem SNOMED Code Status Onset Date Resolution Date Notes Provider Name and Address Organization Details Recorded Time Rheumato id arthridereck s 44767273 Active Crystal Kyburz [place], [place] [facility] 9 10:46:46 Abdomina l aortic aneurysm 840536747 Active 2017 Crystal [place] [facility] 9 10:46:46 Tobacco user 661248809 Active 2017 Crystal [place] [facility] 9 10:46:46 Fibromya lgia 290167727 Active Crystal [place] [facility] 9 10:46:46 History of pancreat itis 22827109185 107 Active medicati on induced from MTX and Invokana Crystal [place] [facility] 9 10:46:46 Vitamin D deficien cy 18159751 Active [place] [facility] 9 10:46:46 Chronic obstruct kendra pulmonar y disease 60822093 Active per prior PCP had been on Dulera 100/5, albutero l nebs Crystal [place] [facility] 9 10:46:46 Coronary atherosc lerosis 470707088 Active s/p stent 04/2016 Gillian [place] [facility] 9 10:46:46 Mixed hyperlip idemia 963910445 [place] [facility] 9 10:46:46 Polyneur opathy 43113912 [place] [facility] 9 10:46:46 Obstruct kendra sleep apnea syndrome 00571711 Active 2015 severe REM dependen t CANDICE; recommen d CPAP titratio n (Dr. Abdulkadir Craft) Gillian [place] [facility] 9 10:46:46 Divertic ulosis of sigmoid colon 890080061 Active [address] abd/pelv is report Gillian cardenas [place] [facility] 9 10:46:46 Steatosi s of liver 276418874 Active 2015 per MRI MRCP [place] [facility] 9 10:46:46 Sliding hiatus hernia 715473429 [place] [facility] 9 10:46:46 Bilatera l inguinal hernia 13169420 Active containi ng fat. [place] [facility] 9 10:46:46 Chronic pancreat itis 290836980 Active 2019 FRANCIS [place] [facility] 0 09:33:29 Arthriti s 5376308 Completed 201612/28/2017 Radha Lynch PA-C Attn: Yolanda g,[address] [facility], [place], [address] , [place] [facility] 8 14:50:36 Neuropat hy 210695687 Active 2016 Gillian [place] [facility] 9 10:46:46 Type 2 diabetes mellitus 72613803 Active 2016 Gillian [place] [facility] 9 10:46:46 Problem Notes None recorded. Procedures Surgical History Date Name Laterality Status Provider Name and Address Organization Details Recorded Time 12/13/19 19 Most Recent Mammogram completed Gillian JohnsonFRANCIS mcgill [place] - [facility] 03/03/2020 09:22:59 05/25/19 19 Nebulizer tx completed Radha Lynch PA-C Attn: Accounting, [address] [facility], [place], [address], [place] [facility] 05/25/2018 12:49:54 02/23/20 17 Angioplasty With Stent completed ZA Kohli [place] [facility] 12/28/2017 14:33:23 11/16/19 17 Date of Last Pap Smear completed Gillian [place] [facility] 12/03/2018 10:46:14 10/23/19 17 Angioplasty With Stent [place] ZA Kohli [place] [facility] 12/28/2017 14:33:19 09/01/19 10 Other completed Gillian [place] [facility] 2016 14:31:50 04/24/19 10 [facility] 14:32:15 04/24/19 10 Hernia Repair completed Gillian Kyburz [place] [facility] 2016 14:32:37 04/24/18 84 Other completed Crystal Kyburz [place] [facility] 2016 14:33:17 04/24/18 78 [facility] 14:32:54 Imaging Results Imaging Date Name Status LastModified by Organiz ation Details LastModified Time 08/03/2018 CT, abdomen + pelvis, w/ contrast completed [facility] ([facility]) [address] [place] [address], [address], 08/06/2018 09:32:46 12/12/2018 MAMMO, screening, digital, bilateral [address] [place] [address], [address], 01/01/2019 10:13:18 Procedure Notes None recorded. Medical Equipment None Reported. Allergies Allergen ID Allergen Name Allergen Category Reaction Reaction Severity Criticality Documentation Date Start Date Code Code System Note Provider Name and Address Organization Details Recorded Time 119523 metformin medicatio n nausea vomiting Not available Not available Not available 12/28/2017 6809 RxNorm Not Available Not Available Not Available 12947 Invokana medicatio n other Not available Not available 2016 49675 64 RxNorm cause s pt to have pancr eatit is Not Available Not Available Not Available 37244 methotrex ate medicatio n other Not available Not available 2016 6851 RxNorm pancr eaiti s Not Available Not Available Not Available Medications Name Sig Start Date Stop Date Status Note LastModified by Organization Details LastModified Time amoxicill in 500 mg capsule 05/17 completed Not Available Not Available Not Available atorvasta tin 80 mg tablet Take 1 tablet every day by oral route. active Not Available Not Available No t Available albuterol sulfate 2.5 mg/3 mL (0.083 %) solution for nebulizat ion Inhale 3 mL every 4-6 hours by nebuliza tion route as needed. active Not Available Not Available No t Available cetirizin e 10 mg tablet Take 1 tablet every day by oral route as needed. 06/07 completed Not Available Not Available Not Available azithromy eulogio 250 mg tablet TAKE 2 TABLETS (500 MG) BY ORAL ROUTE ONCE DAILY FOR 1 DAY THEN 1 TABLET (250 MG) BY ORAL ROUTE ONCE DAILY FOR 4 DAYS 03/03 completed Not Available Not Available Not Available benzonata te 200 mg capsule 03/03 completed Not Available Not Available Not Available glipizide ER 10 mg tablet, extended release 24 hr TAKE 1 TABLET BY MOUTH EVERY DAY WITH BREAKFAS T 05/17 completed Not Available Not Available Not Available prednison e 20 mg tablet Take 2 tablets every day by oral route for 5 days. 03/03 completed Not Available Not Available Not Available isosorbid e mononitra te ER 30 mg tablet,ex tended release 24 hr active Not Available Not Available Not Available Lantus U-100 Insulin 100 unit/mL subcutane ous solution Inject 18 units every day by subcutan eous route at bedtime for 30 days. 08/21 completed Not Available Not Available Not Available clopidogr el 75 mg tablet Take 1 tablet every day by oral route. 03/01 completed Not Available Not Available Not Available tramadol 50 mg tablet 12/03 completed Not Available Not Available Not Available carvedilo l 3.125 mg tablet Take 1 tablet twice a day by oral route. active Not Available Not Available No t Available isosorbid e mononitra te ER 60 mg tablet,ex tended release 24 hr active Not Available Not Available Not Available hydrocodo ne 7.5 mg-acetam inophen 325 mg tablet 03/03 completed Not Available Not Available Not Available Advair Diskus 250 mcg-50 mcg/dose powder for inhalatio n active Not Available Not Available Not Available gabapenti n 300 mg capsule TAKE 1 CAPSULE EVERY MORNING AND AT NOON, THEN TAKE 2 CAPSULES AT BEDTIME active Not Available Not Available No t Available lisinopri l 5 mg tablet Take 1 tablet every day by oral route. active Not Available Not Available No t Available polyethyl maria m glycol 3350 17 gram/dose oral powder Take 17 g every day by oral route. 11/20 completed Not Available Not Available Not Available cefdinir 300 mg capsule 03/03 completed Not Available Not Available Not Available fluticaso ne propionat e 50 mcg/actua tion nasal spray,alvin pension 1 spray each nostril daily for nasal congesti on as needed 06/07 completed Not Available Not Available Not Available metformin ER 500 mg tablet,ex tended release 24 hr 05/17 completed pt is not taking, causes nausea and vomittin g Not Available Not Available Not Available insulin syringe U-100 with needle 0.5 mL 31 gauge x 5/16 active Not Available Not Available Not Available glipizide 5 mg tablet take 2 tab qam and 1 tab qpm with meals active Not Available Not Available No t Available Ventolin HFA 90 mcg/actua tion aerosol inhaler active Not Available Not Available Not Available ezetimibe 10 mg tablet 03/03 completed Not Available Not Available Not Available pregabali n 50 mg capsule Take 1 capsule twice a day by oral route. 03/03 completed Not Available Not Available Not Available pregabali n 100 mg capsule active Not Available Not Available Not Available Aspir-81 active Not Available Not Avai lable Not Available Chantix 0.5 mg tablet 05/17 completed Not Available Not Available Not Available Chantix 1 mg tablet TAKE 1 TABLET BY MOUTH TWICE DAILY 03/03 completed Not Available Not Available Not Available Chantix 05/17 completed Not Available Not Available Not Available Lant Solostar U-100 Insulin 100 unit/mL (3 mL) subcutane ous pen per Shima 28u at bedtime active Not Available Not Available No t Available Creon 6,000-19, 000-30,00 0 unit capsule,d elayed release start with 1 capsule 4 times daily with meals & snack 11/20 completed Not Available Not Available Not Available Brilinta 90 mg tablet Take 1 tablet twice a day by oral route. active Not Available Not Available No t Available Brilinta 05/17 completed unknown dosage Not Available Not Available Not Available Chantix Starting Month Box 0.5 mg (11)-1 mg (42) tablets in dose pack 05/17 completed Not Available Not Available Not Available guaifenes in ER 600 mg tablet, extended release 12 hr Take 1 tablet every 12 hours by oral route. 08/21 completed Not Available Not Available Not Available Brilinta 60 mg tablet active Not Available Not Available Not Available Xeljanz XR 11 mg tablet,ex tended release Take 1 tablet every day by oral route in the morning. active Not Available Not Available No t Available TRUEplus Pen Needle 31 gauge x 1/4 active Not Available Not Available Not Available Trelegy Ellipta 100 mcg-62.5 mcg-25 mcg powder for inhalatio n active Not Available Not Available Not Available Vitals Date Recorded Body height Body mass index (BMI) Body weight Heart rate Respiratory rate Body temperature Oxygen saturation Oxygen saturation in Arterial blood by Pulse oximetry Systolic blood pressure Diastolic blood pressure Provider Name and Address Organization Details Last Updated DateTime 9 160.02 cm 33.2 kg/m2 51995.4 9 g 97 /min 16 /min 96.1 [degF] 98 % 98 % 128 mm[Hg] 84 mm[Hg] ZA Kohli [place] - [facility] 9 11:31:33 Date Recorded Body height Body mass index (BMI) Body weight Heart rate Body temperature Oxygen saturation Oxygen saturation in Arterial blood by Pulse oximetry Provider Name and Address Organization Details Last Updated DateTime 9 160.02 cm 32.5 kg/m2 80630.1 2 g 79 /min 98.6 [degF] 97 % 97 % ZA Kohli [facility] 9 11:54:15 Date Recorded Body height Body mass index (BMI) Body weight Heart rate Respiratory rate Body temperature Oxygen saturation Oxygen saturation in Arterial blood by Pulse oximetry Systolic blood pressure Diastolic blood pressure Provider Name and Address Organization Details Last Updated DateTime 9 160.02 cm 32.7 kg/m2 90518.4 3 g 94 /min 16 /min 97.2 [degF] 96 % 96 % 122 mm[Hg] 78 mm[Hg] ZA Kohli [facility] 9 12:01:42 Date Recorded Body height Body mass index (BMI) Body weight Systolic blood pressure Diastolic blood pressure Provider Name and Address Organization Details Last Updated DateTime 12/03/2018 160.02 cm 32.9 kg/m2 50464.74 g 120 mm[Hg] 90 mm[Hg] Gillian Washburn [facility] 9 10:49:55 Social History Question Answer Notes LastModified by Organizat ion Details LastModified Time Tobacco Smoking Status Current Every Day Smoker Gillian JohnsonFRANCIS mcgill [facility], [facility] 03/03/2020 09:23:36 What Is Your Level Of Alcohol Consumption? None Information not available 2016 Is Blood Transfusion Acceptable In An Emergency? No Information not available 2016 What Is Your Level Of Caffeine Consumption? Moderate 1 Cups Coffee Daily, Information not available 12/28/2017 How Much Tobacco Do You Chew? None Information not available 2016 Are You Currently Employed? No Disabled Information not available 2016 What Type Of Diet Are You Following? REGULAR One Meal A Day Information not available 12/28/2017 Which Illicit Or Recreational Drugs Have You Used? Denies Information not available 2016 Do You Or Have You Ever Used E-cigarettes Or Vape? Never Used Electronic Cigarettes Information not available 11/20/2018 Education 12 Information no t available 2016 What Is Your Occupation? Disabled Information not available 12/28/2017 Hard Of Hearing Or Deaf In One Or Both Ears? No Information not available 12/28/2017 Legally Blind In One Or Both Eyes? No Information not available 12/28/2017 Live Alone Or With Others? With Others Information not available 2016 Marital Status jeremi Rosen n not available 12/28/2017 What Was The Date Of Your Most Recent Tobacco Screening? 03/03/2020 Information not available 03/03/2020 How Many Children Do You Have? 2 Information not available 2016 Performs Monthly Self-breast Exam? No Information not available 2016 What Is Your Relationship Status? Information not available 2016 Seat Belts Used Routinely Yes Information not available 2016 Are You Sexually Active? Yes Information not available 03/03/2020 At What Age Did You Start Smoking Tobacco? 16 Information not available 2016 Do You Or Have You Ever Used Smokeless Tobacco? Never Used Smokeless Tobacco Information not available 11/20/2018 How Much Tobacco Do You Smoke? 0.5 PPD Information not available 03/03/2020 General Stress Level Medium Information not available 11/20/2018 Do You Use Sunscreen Routinely? No Information not available 2016 On What Date Was Tobacco Cessation Counseling Provided? 03/03/2020 Information not available 03/03/2020 How Many Years Have You Smoked Tobacco? 45 Information not available 2016 Sex: Unknown Functional Status Question Answer Note LastModified by Organization D etails LastModified Time What is your exercise level? None Information not available 2016 Mental Status None recorded. Family History Relationship Description Onset Age of this Age Resolved Age Notes LastModified by Organization Details LastModified Time Father Heart disease [place] Not available 2016 14:24:35 Father Hypertensive disorder [place] Not available 2016 14:25:01 Father Hypercholest erolemia [place] Not available 2016 14:28:25 Paternal Grandfather Heart disease [place] Not available 2016 14:24:35 Paternal Grandfather Hypertensive disorder [place] Not available 2016 14:25:01 Mother Hypertensive disorder [place] Not available 2016 14:25:01 Mother Cerebrovascu lar accident [place] Not available 14:25:11 Mother Malignant tumor of breast 89 [place] Not available 2016 14:26:08 Mother Diabetes mellitus [place] Not available 2016 14:27:47 Mother Epilepsy [place] Not available 2016 14:28:01 Mother Hypercholest erolemia [place] Not available 2016 14:28:25 Mother Osteoporosis [place] Not avail able 2016 14:29:01 Sister Hypertensive disorder [place] Not available 2016 14:25:01 Sister Malignant tumor of breast 55 x 2 [email or web address] Not available 2017 14:30:15 Sister Diabetes mellitus [place] Not available 2016 14:27:47 Sister Hypercholest erolemia [place] Not available 2016 14:28:25 Sister Osteoporosis [place] Not avail able 2016 14:29:01 Sister Malignant neoplasm of uterus 64 jdeyto Not available 2017 13:05:04 Sister Heart disease 60 jdeyto Not available 2017 13:05:32 Sister Aortic aneurysm 64 jdeyto Not available 2017 13:06:20 Maternal Grandmother Malignant neoplasm of uterus [place] Not available 2016 14:26:20 Brother Malignant tumor of pharynx [place] Not available 2016 14:26:56 Brother Diabetes mellitus [place] Not available 2016 14:27:47 Brother Hypercholest erolemia [place] Not available 2016 14:28:25 Paternal Grandmother Malignant tumor of kidney [place] Not available 2016 14:27:17 Paternal Grandmother Kidney disease [place] Not available 2016 14:28:45 Notes:sister is Johanna davies Medical History Condition Response Coronary Artery Disease N Other N Atrial Fibrillation N High Blood Pressure N Breast Cancer N Thyroid Problems N Kidney or Bladder Problems N Lung Disease Y Depression N COPD Y Blood Clots N GI Problems Y Acne N Breast Problem N Skin Problems Y Eating Disorder N Anemia N Anesthesia Complications N Heart Attack (KS) Y Headaches/Migraines Y Anxiety Disorder Y Diabetes Y Ovarian Cancer N Muscle, Joint, or Bone Problems Y Blood Transfusions N Seizures/Epilepsy N Infertility N Polyps Y Acid Reflux (GERD) Y Cancer Y Stroke N Abuse/Domestic Violence N Asthma N Allergies N Endometriosis N High Cholesterol Y Hepatitis N Liver Disease Y Heart Disease Y Pre-Eclampsia N Heart Failure N Osteoporosis Y Gynecological History Statement/Question Response Abnormal Pap N On BCP's at Conception? N STIs/STDs N HPV Vaccine N Most Recent Mammogram 12/12/2018 Age at Menarche 15 Current Control Method Menopause Age at First Child 21 If Post Menopausal, Age at Menopause 46 Sexually Active? Y Menses Monthly N Date of Last Pap Smear 2016 Sexual Problems? N LMP Approximate Obstetrics History GPAL:G 2 P 2 0 0 1 Type Value Multiple Births 0 Full Term 2 Induced 0 Spontaneous 0 Premature 0 Living 1 Ectopics 0 Total 2 Past Encounters Encounter ID Performer Location Encounter Start Date Encounter Closed Date Diagnosis/Indication Diagnosis SNOMED-CT Code Diagnosis ICD10 Code Diagnosis Note [id number] Eliz George Mina RAMSEY (ROAD PRODUCTION GENERAL MANAGER) [address] [place] [address] 2016 13:54:39 11/17/2016 11:52:56 Screening for malignant neoplasm of colon 912220670 Z12.11 Was supposed to have 5 year repeat in 2014. Saw Dr. Carter at [facility]. Referral sent to Dr. Carter Screening for malignant neoplasm of breast 464973235 Z12.31 Gynecologi c examination 28425225 Z01.411 No pap since 1999. Pap done. Pt. to call for results. Obesity 424905421 E66.9 Nutrition and exercise discussed. [id number] PAULINO Saunders (Adult Med) [address] [place] [address] 12/28/2017 13:53:36 01/16/2018 09:20:43 Type 2 diabetes mellitus 42660579 E11.69 reviewed diet with patient, possible gastropare sis due to DM. Also discussed medication s and cause for possible hypoglycem ia especially if she is not eating while taking SFU. We will check A1c and see what med changes can be done. Multi vess el coronary artery disease 159855045 I25.10 we will get records from cardiology , cont plavix, statin, ASA, carvedilol Neuropathy 738941489 G62 .9 She felt gabapentin trial worked better than lyrica will start that. Try OTC lidocaine 4% at bedtime. Rheumatoid arthritis 698 84970 M06.9 sees Rheum, on xeljan x2 yrs. Nausea, vo miting and diarrhea 1263476 R11.2 need to eval for gastropare sis due to recurrent sxs and poor appetite. also has h/o pancreatit is on MTX. Chronic constipation 236 271644 K59.09 possibly related to gastropare sis. Immunization refused 275 450387 Z28.20 Tobacco user 974147017 Z 72.0 patient advised to restart Chantix, she will call when she is ready to restart. Abdominal aortic aneurysm 955422967 I71.4 3.5cm per patient at last u/s. cont to follow w/ vascular surgery Depressive disorder 3548 9007 F33.1 she is reluctant to start anti-depre ssant at this time. we will revisit at f/u. [id number] PAULINO Saunders (Adult Med) [address] [place] [address] 01/25/2018 14:58:13 01/26/2018 17:55:04 Type 2 diabetes mellitus 76311011 E11.69 reviewed A1c, blood sugars, says she still doesn't understand it. Patient advised that she needs to call cardiology about the chest pain first we can reschedule for diabetes management . Neuropathy 099009229 G62 .89 with DM and CAD x 2 stents. She feels gabapentin is helping, she hasn't fully titrated up to TID dose yet. Chest pain 34534205 R07. 89 Monday had sharp pain started underneath right breast and then moved to left side of chest into left jaw and shoulder. Patient advised to call her cardiologi st today, provided number and go to ER if pain returns. Chronic constipation 236 761910 K59.09 possibly related to gastropare sis. advised her to schedule gastric emptying study. Nausea and vomiting 1692 1999 R11.2 improved since constipati on has been better. [id number] PUALINO Saunders (Adult Med) [address] [place] [address] 03/01/2018 14:52:45 03/23/2018 15:06:16 Coronary atherosclerosis 935559256 I25.119 s/p stent placement at proximal LAD, cont f/u with cardiology as planned, cont smoking cessation. Agree w/ nutritioni st referral for both DM and CAD. Cont all meds from hospital stay. Type 2 sanjuana betes mellitus 71273875 E11.[address] and DM management as she is still not sure how to manage her blood sugars [id number] PAULINO Saunders (Adult Med) [address] [place] [address] 05/17/2018 10:11:00 05/21/2018 10:26:57 Type 2 diabetes mellitus 94800963 E11.69 reviewed A1c 7.7%, blood sugars in 300s to 500s lately. Discussed options and with her recent KS, recommend she start insulin rather than DPP4. Instructed on how to use the pen, but she would prefer insulin vial, her mom used it and she is familiar on how to use the insulin syringe and needle. Cont to keep track of glucose, short term f/u in 4 weeks. Call if any problems. Discussed hypoglycem ia sxs. Cont oral meds for now. [id number] PAULINO Saunders (Adult Med) [address] [place] [address] 05/25/2018 11:10:10 05/28/2018 09:20:51 Chronic obstructive pulmonary disease 60226237 J44.0 likely cause of current cough sxs. Cont zyrtec, fluticsone nasal spray, treat w/ abx and use pro-air inhaler which she hasn't been using. she has nebulizer at home, not using currently. cont smoking cessation Type 2 sanjuana betes mellitus 95685558 E11.69 Increase insulin to 15u if glucose 300s, up to 20u if glucose 400 or greater. Staff assisted pt logging into portal and she will send blood sugars if not responding to increase in Lantus. [id number] PAULINO Saunders (Adult Med) [address] [place] [address] 06/07/2018 10:57:08 06/08/2018 08:49:31 Type 2 diabetes mellitus 78123399 E11.69 reviewed her glucometer readings for last month. Increase lantus to 18u at bedtime, cont to follow w/ nutritioni st to manage diet better. cont glipizide 10mg QAM and 5mg QPM Cough 76108556 R05 improved lung sounds on exam today after completing short course of steroids; try mucinex & cont to drink plenty of water. Use nebulizer at least once a day when she is having her worst coughing spasms Diabetic p eripheral neuropathy 318556233 E11.40 Worse lately, cont to drink water and increase nighttime gabapentin to 600mg. [id number] PAULINO Saunders (Adult Med) [address] [place] [address] 08/21/2018 11:09:19 08/21/2018 13:37:18 Type 2 diabetes mellitus 66769250 E11.69 saw endocrinol ogy, increased lantus, decreased glipizide. reviewed diet and how DM contribute s to pancreatit is. Recurrent pancreatitis 914077045 K86.1 This is her 5th episode, she had reaction to Invokana and MTX in past. discussed w/ patient possible DM cause vs. autoimmune etiology vs. idiopathic . She is very scared of dying from it, son from this possibly linked to depakote use. Start pancreatic enzymes, see GI specialist . Advised on low fat diet, reduce sugars, carbs. drink plenty of fluids. [id number] PAULINO Saunders (Adult Med) [address] [place] [address] 11/20/2018 11:48:05 11/21/2018 08:39:54 Rheumatoid arthritis 05455956 M06.9 will see Rheum in Dec, on xeljan x2 yrs but stopped when she lost her rheumatolo gist and too expensive on previous insurance. Would like to see if new Rx pharmacy will cover it better. Humira and Remicaid not a good option, increased risk of pancreatit is. short course of steroids if ESR is high, but she has hx of high blood sugars on steroids. Hopefully insurance will cover Xeljianz since she had no side effects with that med advised to use cane or walker for stability and prevent falls/inju ry. Chronic pancreatitis 235 929779 K86.1 multiple factors including DM, RA, medication s, HLD with elevated triglyceri lane (300s last checked here i n Dec). to get ERCP at [facility] soon. cont to f/u with GI for colonoscop y as well. Fibromyalgia 736184024 M 79.7 felt better when she was on Lyrica, but insurance didn't cover it last year, too expensive out of pocket. Will try w/ new insurance. She also has rheum f/u in Dec. Tobacco user 752474630 Z 72.0 Cont Chantix, cont to try and wean down cigarettes . [id number] Eliz Enriquez (ROAD PRODUCTION GENERAL MANAGER) [address] [place] [address] 12/03/2018 10:25:24 12/04/2018 11:20:38 Gynecologic examination 67323590 Z01.411 Last pap done 09/15/16 was negative QNS for hr-HPV. Therefore, no pap needed. Screening for malignant neoplasm of breast 161386390 Z12.31 Last 2016. Mammogram ordered. Screening for malignant neoplasm of colon 064155678 Z12.11 Last 2009. Was supposed to have 5 year repeat in 2014. Saw Dr. Carter at [facility]. Referral sent to Dr. Carter Type 2 sanjuana betes mellitus 83206456 E11.9 [id number] Eliz Enriquez (ROAD PRODUCTION GENERAL MANAGER) [address] [place] [address] 03/03/2020 08:16:43 03/05/2020 11:02:01 Urinary incontinence 978957902 R32 Pt. with c/o worsening urinary incontinen ce. She previously declined interventi on but now wants a pessary. Will schedule pelvic exam for fitting, dwp. Health Concerns Section Related Observation LastModified by Organization Detai ls LastModified Time None Recorded Concern Status LastModified by Organization Details LastModified Time None Recorded Advance Directives Directive None Recorded Payers Encounter Date Sequence Insurance Name Policy Number Policy Borrero Covered Member ID Borrero Member ID Guarantor Name 06/07/2018 2 [facility] (MEDICARE REPLACEMENT/ ADVANTAGE - HMO) [id number] Keyla Cotog [id number] Keyla Arreaga 06/07/2018 1 [employer] [facility] (O) [id number] Mike Cotog [id number] 0001 Keyla Liuigg 08/21/2018 2 [facility] (MEDICARE REPLACEMENT/ ADVANTAGE - HMO) [id number] Keyla Cotog [id number] Keyla Sena [place] 08/21/2018 1 [employer] [facility] (PPO) [id number] Mike Cotog [id number] 0001 Keyla Sena [place] 11/20/2018 2 [facility] (MEDICARE REPLACEMENT/ ADVANTAGE - HMO) [id number] Keyla Cotog [id number] Keyla Liuigg 11/20/2018 1 [employer] [facility] (PPO) [id number] Mike Arreaga [id number] 0001 Keyla Liuigg 12/03/2018 2 [facility] (MEDICARE REPLACEMENT/ ADVANTAGE - HMO) [id number] Keyla Cotog [id number] [facility] 12/03/2018 1 [facility] [facility] [id number] Mike Cotog [id number] 0001 Keyla Liuigg 03/03/2020 2 [facility] (MEDICARE REPLACEMENT/ ADVANTAGE - HMO) [id number] Keyla Cotog [id number] Keyla Liuigg 03/03/2020 1 [employer] [facility] (O) [id number] Mike Cotog [id number] 0001 [facility] Notes Date Note Type Note Provider Name and Address Organization Details Recorded Time 9 text/html Care Management - HypertensionReported bypatient.Self Care:not under emotional stress; using an PJ inhibitor; using a beta maciel Severity:symptoms are improving; does not interfere with daily activities Associated Symptoms:no blurred vision; no confusion; no headaches; no fatigueHypertension F/UReported bypatient.Associated Symptoms:no dizziness; no lightheadedness; no chest pain; no shortness of breath; no palpitations; no edema; no calf pain with exertion Lifestyle:limiting/avoidi ng salt;not exercising regularly Medications:taking medications as directed; no side effects from medication Feet are cramping & burning, severe last night and for past week more frequent. keeps her awake taking lantus 16u; changed glipizide 2qam and 1 at dinner. blood sugars are better since she completed steroids, was high into 600s. Now range is 140-300. Higher numbers pre-lunch and dinner.No problems administering insulin via syringe, she denies any hypoglycemia episodes. Overall she feels much better, less depressed and less fatigued. has quit all regular soda, shoe salesman said ok to drink diet Dr. Dacosta. but pt limiting it to 2 a day and rest of day drinking at least 3 8oz glasses of water. has appt w/ ball machine operator in June.Cont to be tobacco free. doesn't drink much alcohol but craving beer, will check w/ ball machine operator to see if that is ok. still has cough, but not as bad, not able to cough up mucous, feels it gets stuck in throat. no more wheezing, not using nebulizer every day Radha Lynch PA-C Attn: Accounting,[address] [facility], [place], [address], [facility] [employer] 06/07/2018 13:23:33 9 text/html Diabetes F/UReported bypatient.Context:checkin g feet regularly; taking aspirin daily; no side effects from medications;home blood sugar range low (below 70);not seeing eye doctor yearly Associated Symptoms:no weight gain; no dizziness; no sweats; no headaches; no increased thirst; no increased urination; no calluses on feet;weight loss (5 lbs);confusion;blurred vision;numbness of feet 5 episodes of pancreatitis. she is anxious about since her son from it. Radha Lynch PA-C Attn: Accounting,[address] [facility], [place], [address], [facility] [employer] 11/28/2018 14:19:52 9 text/html Diabetes F/UReported bypatient.Labs:last A1C result: 7.9; done at endocrine office 11/07 Context:normal range of home blood sugars (in the low 100s); checking feet regularly; taking aspirin daily; not missing doses of medications; no side effects from medications;not seeing eye doctor yearly(but will schedule appt) Associated Symptoms:no dizziness; no headaches; no confusion; no increased urination feels pancreatitis coming back, pain comes & goes to RUQ and her back. trying to not eat too much and drinking plenty of fluids. Referred to [facility] for ERCP by Dr. munoz, to get colonoscopy after that procedure. pains all over, can't see rheum until Dec. Right hand pain, nodules, knuckles swelling more. IV infusion helped the most. has been off xeljans for about a year since her dredge hand left area, but now Dr. Craft [place]; no falls tobacco still smoking and using Chantix, down to 1/2 ppd or less. right knee surgery postponed until Dec ortho f/u. Radha Lynch PA-C Attn: Accounting,[address] [place], [address], [facility] 11/20/2018 13:11:21 9 text/html Annual GYNReported bypatient.Menstrual cycle:Normal menses Urinary symptoms:No hematuria; No incontinence Vulva:No genital lesion Vagina:Normal vaginal discharge Breast:No breast pain; No breast lump; No nipple discharge Current Contraception:menopause Sexual complaints:No sexual complaints; No pain during intercourse; Normal libido Menopausal Symptoms:No menopausal symptoms; Normal vaginal lubrication Psychological symptoms:No depression; No anxiety; No PMDD Preventive measures:Encourage self breast examination; Encourage regular exercise; Encourage no tobacco use; Encourage regular mammograms starting age 40; Needs to schedule mammogram; Needs to schedule colonoscopy (Pt to call Dr. Carter, her sales applications engineer.) Eliz cardenas [facility] 12/03/2018 11:53:17 0 text/html Telephone visit due to COVID-19 pandemic. Pt. with c/o urinary incontinence that is getting progressively worse. She is using 2-3 pads daily and they are irritating her. She now wants a pessary. Eliz cardenas [facility] 03/03/2020 09:42:32 OBGyn Episode Ob Episode Information Episode Created Date Number of Fetuses Patient Bloodtype Patient rh Status Prepregnancy Weight lbs Domestic Partner Domestic Partner Phone Father Name Online Marketing Analyst Status 11/16/19 17 1 CLOSED Fetus Data First Name Last Name Admitted to NICU Weight (g) Sex Living Outcome Pediatric Complications Fetus ID Race Codes Race Delivery Type 1814.36 8 M Full Term 12357 Vaginal Ashish Calculation Initial Ashish Date Initial Exam Date Initial Exam Provider Initial Ultrasound Date Last Menstrual Period Date Ultra Sound Weeks Gestation 0 Eighteen To Twenty Week Ashish Update Ultra Sound Date Fundal Height At Umbil Quickening Date Ultra Sound Latest Weeks Gestation Final Ashish Confirmed By Final Ashish Confirmed Date Final Ashish Date Ultra Sound Latest Days Gestation 0 0 Menstrual History Last Menstrual Date Menses Monthly On Bcp Conception Prior Menses Frequency Hcg Plus Date Menarche Onset Age Delivery Information Delivery Date Delivery Type Labor Anesthesia Weeks Gestation Incision Type Labor Labor Length Hrs Delivered By Post Complications Tubal Sterilization Discharge Date Comments 0 Discharge Information Feeding Method Contraceptive Method Maternal HG B and HCT Levels Ob Episode Information Episode Created Date Number of Fetuses Patient Bloodtype Patient rh Status Prepregnancy Weight lbs Domestic Partner Domestic Partner Phone Father Name Online Marketing Analyst Status 11/16/19 17 1 CLOSED Fetus Data First Name Last Name Admitted to NICU Weight (g) Sex Living Outcome Pediatric Complications Fetus ID Race Codes Race Delivery Type 2636.27 6704 M Full Term 90143 Vaginal Ashish Calculation Initial Ashish Date Initial Exam Date Initial Exam Provider Initial Ultrasound Date Last Menstrual Period Date Ultra Sound Weeks Gestation 0 Eighteen To Twenty Week Ashish Update Ultra Sound Date Fundal Height At Umbil Quickening Date Ultra Sound Latest Weeks Gestation Final Ashish Confirmed By Final Ashish Confirmed Date Final Ashish Date Ultra Sound Latest Days Gestation 0 0 Menstrual History Last Menstrual Date Menses Monthly On Bcp Conception Prior Menses Frequency Hcg Plus Date Menarche Onset Age Delivery Information Delivery Date Delivery Type Labor Anesthesia Weeks Gestation Incision Type Labor Labor Length Hrs Delivered By Post Complications Tubal Sterilization Discharge Date Comments 8 Discharge Information Feeding Method Contraceptive Method Maternal HG B and HCT Levels
--- OUTSIDE RECORDS SUMMARY | 2024-07-17 13:36 | XMS_ITS | Encounter Summary ---
Author Organization [facility] Address [address] [place] [address] Phone Care Team Providers Care Topography Technician Name Role Phone Karan Ngo MD Unavailable Gin Wilson MD Primary Care Provider Gin Wilson MD Primary Care Provider Rohith Sen MD Primary Care Provider [phone] Encounter Details Date Type Department Care Team [...] on file Legal Sex Female 1:49 PM FINANCIAL SALES REPRESENTATIVE Gender Identity Not on file Sexual Orientation [...] CDT COVID19 02/19/2021 02/19/2021 03/05/2021 3:05 AM FINANCIAL SALES REPRESENTATIVE COVID: Recovered Comment:Added based on recent COVID infection. 03/05/2021 06/08/2021 07/03/2021 3:[address] documented as of this encounter Care Teams Topography Technician Relationship Specialty Start Date End Date Gin Wilson MD [address] [place] [address] PCP - General Family Practice 06/19/19 01/31/21 Gin Wilson MD [address] [place] [address] PCP - General Family Practice 02/01/21 12/04/23 Rohith Sen MD [address] [place] [address] PCP - General Family Practice 12/05/23 Karan Ngo MD [address] [place] [address] Consulting Physician Cardiology 11/02/18 documented as of this encounter
--- OUTSIDE RECORDS SUMMARY | 2024-07-17 13:36 | XMS_ITS | Encounter Summary ---
Author Organization [facility] Address [address] [place] [address] Care Team Providers Care Supervisor Show Operations Name Role Phone Karan Ngo MD Unavailable Abdulkadir Craft MD Unavailable Carole Neal MD Unavailable [phone] Rohith Sen MD Primary Care Provider Encounter Details Date Type Department Care Team (Late st Contact Info) Description 01/30/[address] [facility] [id number] Maximo Jones MD [address] [facility]. [place], [place] [id number] Social History Tobacco Use Types Packs/Day Years [...] Arthritis RA, osteoarthritis, psoriatric arthritis ??? Cancer ([facility]) leukemia as a child ??? Colitis ??? COPD (chronic obstructive pulmonary disease) ([facility]) ??? Coronary artery disease ??? 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 Diabetes mellitus ([facility]) ??? Diverticulitis ??? Emphysema lung ([facility]) ??? MVP (mitral valve prolapse) ??? Neuropathy feet ??? On supplemental oxygen by nasal cannula 4L O2 PRN ??? Seizure ([facility]) patient unsure about this ??? Stroke ([facility]) possible TIA? Allergies: Allergies Allergen Reactions ??? [...] on filedocumented in this encounter Care Teams Supervisor Show Operations Relationship Specialty Start Date End Date Rohith Sen MD [address] [id number] PCP - General FAMILY PRACTICE 02/03/23 Karan Ngo MD [address] [facility] [address] [place] [address] CARDIOVASCULAR DISEASE 01/29/21 [place] [address] [place] [address] Referring Physician RHEUMATOLOGY 01/29/21 Carole Neal MD [address] [place] [address] PULMONARY DISEASE 01/29/21 documented as of this encounter
== END 2024-07-17 12:33 | disposition home or self-care (01) ==
PROVIDERS: PCP Nurse Practitioner Adult Health; Visit Provider Nurse Practitioner
DX: R93.2 Abnormal findings on diagnostic imaging of liver and biliary tract (principal); K86.2 Cyst of pancreas; I35.8 Other nonrheumatic aortic valve disorders; I71.43 Infrarenal abdominal aortic aneurysm, without rupture
CPT/HCPCS: 74183; A9579

== ENCOUNTER 2024-07-28 09:21 | Emergency (ER) | payer MEDICARE, SELFPAY ==
--- NOTE | ~2024-07-28 | XR_ITS ---
XR chest 1V Ordering provider: Andrés Person MD History: 68 years Female with . sob . Comparison: January 09, 2023 FINDINGS: MEDIASTINUM: The cardiac silhouette is not enlarged. LUNGS: No infiltrates, effusions or pneumothorax. OTHER: No free air under the diaphragm. IMPRESSION: No acute cardiopulmonary pathology. Reviewed, dictated and finalized at location A.
--- OUTSIDE RECORDS SUMMARY | 2024-07-28 09:23 | XMS_ITS | Referral Summary ---
Author Organization [facility] [address] [facility] [address] Address [address] [place] [address] Care Team Providers Care M1 Armor Crewman Name Role Phone Karan Ngo MD Unavailable Rohith Sen MD Primary Care Provider [phone] Encounters Date Type Department Care Team Description 05/06/2024 Telephone [facility] Medical Group Cardiology [address] [place] [address] Karan Ngo MD from Last [...] 24 hr tabletIndications :Coronary artery disease of [place] artery of [place] heart with stable angina pectoris TAKE 1 [...] Problem Noted Date Diagnosed Date COPD exacerbation ([facility]) 10/10/2020 Acute on chronic respiratory failure with hypoxe brian 10/10/2020 Pancreatic cyst 03/23/2020 Type 2 diabetes mellitus wit h hyperglycemia, with long-term current use of insulin 03/16/2020 Assessment & Plan (03/16/2020 2:22 PM MATCHER LEATHER PARTS): Diagnosed in 2013- Had recurrent pancreatitis. Started [...] 03/16/2020 Assessment & Plan (03/16/2020 2:23 PM MATCHER LEATHER PARTS): Complicated with CAD Controlled with medication - [...] (11/02/2018): Added automatically from request for surgery [id number] Assessment & Plan (12/11/2018 5:10 PM CDT): [...] on file Legal Sex Female 1:49 PM MATCHER LEATHER PARTS Gender Identity Not on file Sexual Orientation [...] on file Medical Devices Implanted Type Area Closet Organizer Device Identifier Shelf Expiration Date Model / Serial / Lot System Coronary Stent Synergy Pebax Everolimus Eluting [place] Chromium Plga L12 Mm L144 Cm Od2.25 Mm Radiopaque 1 Access Port Inflation Lumen Accepts .014 In Guidewire - [id number] Implanted:Qty: 1 on 04/06/2017 by Karan Ngo MD at [facility] 12/19/2017 [id number] 220 / / [id number] Procedures Procedure Name Priority Date/Time Associated Diagnosis Comments POCT LIPID PANEL Routine 12/05/2023 11:2 5 AM CDT Lipid screening EGFR STAT 09/10/2021 3:31 PM CDT POCT HEMOGLOBIN A1C Routine 03/16/2020 2 :10 PM MATCHER LEATHER PARTS Type 2 diabetes mellitus with hyperglycemia, with [...] BLOOD ORDERABLES Tanika l Result AUSTIN CUELLAR ([place]) 1 [facility] [place] [address] * POCT hemoglobin A1c (03/16/2020 2:10 PM MATCHER LEATHER PARTS) Pathologist [facility] Hemoglobin A1C, POC 7.1 Blood specimen (specimen) 03/16/2020 2:10 PM MATCHER LEATHER PARTS Abena Ronquillo MD POINT OF CARE TEST ORDERABLES Final Result * DIABETES EYE EXAM (02/06/2019) Pathologist [facility] Diabetic Eye Exam Unknown us Historical Provider HEALTH MAINTENANCE Final Result from Last 3 Months or Most Recently Relevant to Health Maintenance Insurance [facility] Address: [address] [address] [facility] MEDICARE ADVANTAGE [facility] Address: [address] [address] [place] [address] [facility] MEDICARE ADVANTAGE [facility] Address: [address] [address] [place] [address] Advance Directives For more information, please contact: [phone] * Full Code (Latest Code Status on File) Date Activated Date Inactivated Comments 10/10/2020 6:56 PM 10/12/2020 5:57 PM * Full Code Date Activated Date Inactivated Comments 11/30/2018 7:41 AM 11/30/2018 1:32 PM * Full Code Date Activated Date Inactivated Comments 04/06/2017 3:48 PM 04/07/2017 2:06 PM Care Teams M1 Armor Crewman Relationship Specialty Start Date End Date Rohith Sen MD [address] [place] [address] [place] [address] PCP - General Family Practice 12/05/23 Karan Ngo MD [address] [place] [address] Consulting Physician Cardiology 11/02/18
--- OUTSIDE RECORDS SUMMARY | 2024-07-28 09:23 | XMS_ITS | Encounter Summary ---
Author Organization [facility] Address [address] [place] [address] Phone Care Team Providers Care Pre Fabricator Name Role Phone Karan Ngo MD Unavailable Gin Wilson MD Primary Care Provider Gin Wilson MD Primary Care Provider Rohith Sen MD Primary Care Provider [phone] Encounter Details Date Type Department Care Team [...] on file Legal Sex Female 1:49 PM HIDE HANDLER Gender Identity Not on file Sexual Orientation [...] CDT COVID19 02/19/2021 02/19/2021 03/05/2021 3:05 AM HIDE HANDLER COVID: Recovered Comment:Added based on recent COVID infection. 03/05/2021 06/08/2021 07/03/2021 3:[address] documented as of this encounter Care Teams Pre Fabricator Relationship Specialty Start Date End Date Gin Wilson MD [address] [place] [address] PCP - General Family Practice 06/19/19 01/31/21 Gin Wilson MD [address] [place] [address] PCP - General Family Practice 02/01/21 12/04/23 Rohith Sen MD [address] [place] [address] PCP - General Family Practice 12/05/23 Karan Ngo MD [address] [place] [address] Consulting Physician Cardiology 11/02/18 documented as of this encounter
--- OUTSIDE RECORDS SUMMARY | 2024-07-28 09:23 | XMS_ITS | Clinical Summary ---
Author Organization [facility] [place] [address] [facility] [address] Address [address] [place] [address] Care Team Providers Care Office Services Representative Name Role Phone Karan Ngo MD Unavailable Rohith Sen MD Primary Care Provider [phone] Allergies Active Allergy Reactions Criticality Noted Date [...] 24 hr tabletIndications :Coronary artery disease of [place] artery of [place] heart with stable angina pectoris TAKE 1 [...] 03/16/2020 Assessment & Plan (03/16/2020 2:22 PM TENSILE TESTER): Diagnosed in 2013- Had recurrent pancreatitis. Started [...] 03/16/2020 Assessment & Plan (03/16/2020 2:23 PM TENSILE TESTER): Complicated with CAD Controlled with medication - [...] (11/02/2018): Added automatically from request for surgery [id number] Assessment & Plan (12/11/2018 5:10 PM CDT): [...] Type Department Care Team Description 05/06/2024 Telephone [facility] Medical Group Cardiology [address] [place] [address] Karan Ngo MD from Last [...] on file Legal Sex Female 1:49 PM TENSILE TESTER Gender Identity Not on file Sexual Orientation [...] history exists Medical Devices Implanted Type Area School Age Program Associate Device Identifier Shelf Expiration Date Model / Serial / Lot System Coronary Stent Synergy Pebax Everolimus Eluting [place] Chromium Plga L12 Mm L144 Cm Od2.25 Mm Radiopaque 1 Access Port Inflation Lumen Accepts .014 In Guidewire - [id number] Implanted:Qty: 1 on 04/06/2017 by Karan Ngo MD at [facility] [employer] [facility] 12/19/2017 [id number] 220 / / [id number] Procedures Procedure Name Priority Date/Time Associated Diagnosis Comments POCT LIPID PANEL Routine 12/05/2023 11:2 5 AM CDT Lipid screening EGFR STAT 09/10/2021 3:31 PM CDT POCT HEMOGLOBIN A1C Routine 03/16/2020 2 :10 PM TENSILE TESTER Type 2 diabetes mellitus with hyperglycemia, with [...] BLOOD ORDERABLES Tanika l Result AUSTIN CUELLAR ([place]) 1 [facility] Department [place] [address] * POCT hemoglobin A1c (03/16/2020 2:10 PM TENSILE TESTER) Hemoglobin A1C, POC 7.1 Blood specimen (specimen) 03/16/2020 2:10 PM TENSILE TESTER us Abena Ronquillo MD POINT OF CARE TEST ORDERABLES Final Result * DIABETES EYE EXAM (02/06/2019) Diabetic Eye Exam Unknown us Historical Provider HEALTH MAINTENANCE Final Result from Last 3 Months or Most Recently Relevant to Health Maintenance Insurance [facility] MEDICARE ADVANTAGE Advance Directives For more information, please contact: [phone] * Full Code (Latest Code Status on File) Date Activated Date Inactivated Comments 10/10/2020 6:56 PM 10/12/2020 5:57 PM * Full Code Date Activated Date Inactivated Comments 11/30/2018 7:41 AM 11/30/2018 1:32 PM * Full Code Date Activated Date Inactivated Comments 04/06/2017 3:48 PM 04/07/2017 2:06 PM Care Teams Office Services Representative Relationship Specialty Start Date End Date Rohith Sen MD [address] [place] [address] PCP - General Family Practice 12/05/23 Karan Ngo MD [address] [address] [place] [address] Consulting Physician Cardiology 11/02/18
--- OUTSIDE RECORDS SUMMARY | 2024-07-28 09:23 | XMS_ITS | Encounter Summary ---
Author Organization [facility] Address [address] [place] [address] Care Team Providers Care Senior Structural Engineer Name Role Phone Karan Ngo MD Unavailable Abdulkadir Craft MD Unavailable Carole Neal MD Unavailable [phone] Rohith Sen MD Primary Care Provider [phone] Encounter Details Date Type Department Care Team (Late st Contact Info) Description 01/30/[address] [facility] [id number] Maximo Jones MD [address] [facility]. [place], [place] [id number] Social History Tobacco Use Types Packs/Day Years [...] Arthritis RA, osteoarthritis, psoriatric arthritis ??? Cancer ([facility]) leukemia as a child ??? Colitis ??? COPD (chronic obstructive pulmonary disease) ([facility]) ??? Coronary artery disease ??? 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 Diabetes mellitus ([facility]) ??? Diverticulitis ??? Emphysema lung ([facility]) ??? MVP (mitral valve prolapse) ??? Neuropathy feet ??? On supplemental oxygen by nasal cannula 4L O2 PRN ??? Seizure ([facility]) patient unsure about this ??? Stroke ([facility]) possible TIA? Allergies: Allergies Allergen [...] on filedocumented in this encounter Care Teams Senior Structural Engineer Relationship Specialty Start Date End Date Rohith Sen MD [address] [id number] PCP - General FAMILY PRACTICE 02/03/23 Karan Ngo MD [address] [facility] [address] [place] [address] CARDIOVASCULAR DISEASE 01/29/21 [place] [address] [place] [address] Referring Physician RHEUMATOLOGY 01/29/21 Carole Neal MD [address] [place] [address] PULMONARY DISEASE 01/29/21 documented as of this encounter
--- OUTSIDE RECORDS SUMMARY | 2024-07-28 09:23 | XMS_ITS | Encounter Summary ---
Author Organization [facility] Address [address] [place] [address] Care Team Providers Care Veterinary Milk Specialist Name Role Phone Karan Ngo MD Unavailable Abdulkadir Craft MD Unavailable Carole Neal MD Unavailable [phone] Rohith Sen MD Primary Care Provider [phone] Encounter Details Date Type Department Care Team (Late st Contact Info) Description 11/17/2015 Abstract [facility] CONVERSION [address] [place], [place] [id number] , Olinda Polo MD Social History Tobacco [...] on filedocumented in this encounter Care Teams Veterinary Milk Specialist Relationship Specialty Start Date End Date Rohith Sen MD [address] [place] [address] PCP - General FAMILY PRACTICE 02/03/23 Karan Ngo MD [address] [address] CARDIOVASCULAR DISEASE 01/29/21 [place] [address] [place] [address] Referring Physician RHEUMATOLOGY 01/29/21 Carole Neal MD [address] [place] [address] PULMONARY DISEASE 01/29/21 documented as of this encounter
--- OUTSIDE RECORDS SUMMARY | 2024-07-28 09:23 | XMS_ITS | Data Portability ---
Author Organization [facility], Main Office Address [address] [place] [address] Care Team Providers Care Skate Boarder Name Role Phone TIMOTHY LOVELL Primary Care Provider [phone] Assessment No assessment recorded. Plan of Treatment Reminders Order Date Submit Date Provider Last Modified By Organization Details Last Modified Time Details Appointments None recorded. Lab cortisol, am, serum 2022 023 [facility], [address], [place], [address], 3 15:23:09 dexamethaso ne, serum 2022 023 [facility], [address], [place], [address], 3 15:23:07 microalbumi n/creatinin e, mass ratio, urine 2022 023 [facility], [address], [place], [address], 3 15:23:07 CMP, serum or plasma 2022 023 [facility], [address], [place], [address], 3 15:23:06 HbA1c (hemoglobin A1c), blood 2022 023 [facility], [address], [place], [address], 3 15:23:10 lipid panel, serum 2022 023 [facility], [address], [place], [address], 3 15:23:05 TSH, serum or plasma 2022 023 [facility], [address], [place], [address], 3 15:23:08 T4, free, serum 2022 023 [facility], [address], [place], [address], 3 15:23:08 Referral None recorded. Procedures None recorded. Surgeries None recorded. Imaging bone density 2022 023 [facility] (Im[facility]), [address] [place] [address], [address], 3 18:06:42 Medication Orders dexamethaso ne 1 mg tablet 2022 023 [id number], [address] [place], [address], 3 15:14:07 Patient TargetsNo targets recorded. Patient [...] diabe abby for child adebayo. Not Available [address] [place], [address], 06/10/2021 12:18:35 06/09/19 22 06/10/2021 TSH+F REE T4 TSH 2.16 mIU/L 0.40-4 .50 normal Not Available [address] [place], [address], 06/10/2021 12:18:34 06/09/19 22 06/10/2021 TSH+F REE T4 T4, free 1.2 NG/dL 0.8-1. 8 normal Not Available [address] [address] [place], [address], 06/10/2021 12:18:34 06/09/19 22 06/10/2021 ALBUM IN, RANDO M URINE W/CRE ATINI NE creatinine, random urine 74 mg/dL 20-275 normal Not Available [address] [address] [place], [address], 06/10/2021 12:18:33 06/09/19 22 06/10/2021 ALBUM IN, RANDO M URINE W/CRE ATINI NE albumin, urine 0.2 mg/dL see note: normal Refer ence Range : Refer ence Range Not estab lishe d Not Available [address] [address] [place], [address], 06/10/2021 12:18:33 06/09/19 22 06/10/2021 ALBUM IN, [...] a diagn ostic categ ory. Not Available [facility] [address] [address] [place], [address], 06/10/2021 12:18:33 06/09/19 22 06/10/2021 COMPR EHENS ABBY METAB OLIC PANEL glucose 166 mg/dL 65-99 high Fasti ng refer ence inter aiden For someo ne witho ut known diabe abby, a gluco se value >125 mg/dL indic ates that they may have diabe abby and this shoul d be confi rmed with a follo w-up test. Not Available [facility] [address] [place], [address], 06/10/2021 12:18:32 06/09/19 22 06/10/2021 COMPR EHENS ABBY METAB OLIC PANEL urea nitrogen (BUN) 17 mg/dL 7-25 normal Not Available [facility] [address] [address] [place], [address], 06/10/2021 12:18:32 06/09/19 22 06/10/2021 COMPR EHENS ABBY METAB OLIC PANEL creatinine 1.14 mg/dL 0.50-0 .99 high For patie nts >49 years of age, the refer ence limit for Creat inine is appro ximat jose 13% highe r for peopl e ident ified as Afric an-Am jailyn n. Not Available [facility] [address] [place], [address], 06/10/2021 12:18:32 06/09/19 22 06/10/2021 COMPR EHENS ABBY METAB OLIC PANEL eGFR non-afr. senegalese 51 mL/mi n/1.7 3m2 > or = 60 low Not Available [address], [address], 06/10/2021 12:18:32 06/09/19 22 06/10/2021 COMPR EHENS ABBY METAB OLIC PANEL eGFR 59 mL/mi n/1.7 3m2 > or = 60 low Not Available [address], [address], 06/10/2021 12:18:32 06/09/19 22 06/10/2021 COMPR EHENS ABBY METAB OLIC PANEL BUN/creatini ne ratio 15 (calc ) 6-22 normal Not Available [address], [address], 06/10/2021 12:18:32 06/09/19 22 06/10/2021 COMPR EHENS ABBY METAB OLIC PANEL sodium 139 mmol/ L 135-14 6 normal Not Available [address], [address], 06/10/2021 12:18:32 06/09/19 22 06/10/2021 COMPR EHENS ABBY METAB OLIC PANEL potassium 4.4 mmol/ L 3.5-5. 3 normal Not Available [address], [address], 06/10/2021 12:18:32 06/09/19 22 06/10/2021 COMPR EHENS ABBY METAB OLIC PANEL chloride 103 mmol/ L 98-110 normal Not Available [address], [address], 06/10/2021 12:18:32 06/09/19 22 06/10/2021 COMPR EHENS ABBY METAB OLIC PANEL carbon dioxide 25 mmol/ L 20-32 normal Not Available [address], [address], 06/10/2021 12:18:32 06/09/19 22 06/10/2021 COMPR EHENS ABBY METAB OLIC PANEL calcium 9.7 mg/dL 8.6-10 .4 normal Not Available [address], [address], 06/10/2021 12:18:32 06/09/19 22 06/10/2021 COMPR EHENS ABBY METAB OLIC PANEL protein, total 7.3 g/dL 6.1-8. 1 normal Not Available [address], [address], 06/10/2021 12:18:32 06/09/19 22 06/10/2021 COMPR EHENS ABBY METAB OLIC PANEL albumin 4.7 g/dL 3.6-5. 1 normal Not Available [address], [address], 06/10/2021 12:18:32 06/09/19 22 06/10/2021 COMPR EHENS ABBY METAB OLIC PANEL globulin 2.6 g/dL_ (calc ) 1.9-3. 7 normal Not Available [address], [address], 06/10/2021 12:18:32 06/09/19 22 06/10/2021 COMPR EHENS ABBY METAB OLIC PANEL albumin/glob ulin ratio 1.8 (calc ) 1.0-2. 5 normal Not Available [address], [address], 06/10/2021 12:18:32 06/09/19 22 06/10/2021 COMPR EHENS ABBY METAB OLIC PANEL bilirubin, total 0.4 mg/dL 0.2-1. 2 normal Not Available [address], [address], 06/10/2021 12:18:32 06/09/19 22 06/10/2021 COMPR EHENS ABBY METAB OLIC PANEL alkaline phosphatase 95 U/L 37-153 normal Not Available [facility] [employer] [address] [address] [place], [address], 06/10/2021 12:18:32 06/09/19 22 06/10/2021 COMPR EHENS ABBY METAB OLIC PANEL AST 19 U/L 10-35 normal Not Available [address], [address], 06/10/2021 12:18:32 06/09/19 22 06/10/2021 COMPR EHENS ABBY METAB OLIC PANEL ALT 22 U/L 6-29 normal Not Available [address], [address], 06/10/2021 12:18:32 06/09/19 22 06/10/2021 LIPID PANEL , STAND JOSE ENRIQUE cholesterol, total 215 mg/dL <200 high Not Available [address], [address], 06/10/2021 12:18:32 06/09/19 22 06/10/2021 LIPID PANEL , STAND JOSE ENRIQUE HDL cholesterol 51 mg/dL > or = 50 normal Not Available [address], [address], 06/10/2021 12:18:32 06/09/19 22 06/10/2021 LIPID PANEL , STAND JOSE ENRIQUE triglyceride s 223 mg/dL <150 high If a non-f astin g speci men was colle cted, consi dheeraj repea t trigl yceri de testi ng on a fasti ng speci men if clini sam indic ated. Abhishek amezquita et al. J. of Clin. Lipid ol. 2015; 9:129 -169. Not Available [address] [place], [address], 06/10/2021 12:18:32 06/09/19 22 06/10/2021 LIPID PANEL [...] 310(1 9): 2061- 2068 (http ://ed ucati on.CamSemi. com/f aq/FA Q164) Not Available [facility] [address] [address] [address], [place], [address], 06/10/2021 12:18:32 06/09/19 22 06/10/2021 LIPID PANEL , STAND JOSE ENRIQUE chol/HDLC ratio 4.2 (calc ) <5.0 normal Not Available [facility] [address] [address], [place], [address], 06/10/2021 12:18:32 06/09/19 22 06/10/2021 LIPID PANEL , STAND JOSE ENRIQUE non HDL cholesterol 164 mg/dL _(roxie c) <130 high For patie nts with diabe abby plus 1 major ASCVD risk facto r, treat ing to a non-H DL-C goal of <100 mg/dL (LDL- C of <70 mg/dL ) is puneet stafford optio n. Not Available [facility] [address] [address], [place], [address], 06/10/2021 12:18:32 10/29/19 22 10/29/2021 HEMOG LOBIN [...] diabe abby for child adebayo. Not Available [address], [address], 10/29/2021 12:12:32 10/29/19 22 10/29/2021 TSH+F REE T4 TSH 1.43 mIU/L 0.40-4 .50 normal Not Available [address], [address], 10/29/2021 12:12:32 10/29/19 22 10/29/2021 TSH+F REE T4 T4, free 0.9 NG/dL 0.8-1. 8 normal Not Available [address], [address], 10/29/2021 12:12:32 10/29/19 22 10/29/2021 ALBUM IN, RANDO M URINE W/CRE ATINI NE creatinine, random urine 79 mg/dL 20-275 normal Not Available [address], [address], 10/29/2021 12:12:31 10/29/19 22 10/29/2021 ALBUM IN, RANDO M URINE W/CRE ATINI NE albumin, urine 1.1 mg/dL see note: normal Refer ence Range : Refer ence Range Not estab lishe d Not Available [address], [address], 10/29/2021 12:12:31 10/29/19 22 10/29/2021 ALBUM IN, [...] a diagn ostic categ ory. Not Available [address] [place], [address], 10/29/2021 12:12:31 10/29/19 22 10/29/2021 COMPR EHENS ABBY METAB OLIC PANEL glucose 87 mg/dL 65-99 normal Fasti ng refer ence inter aiden Not Available [address], [address], 10/29/2021 12:12:31 10/29/19 22 10/29/2021 COMPR EHENS ABBY METAB OLIC PANEL urea nitrogen (BUN) 9 mg/dL 7-25 normal Not Available [facility] [address] [place], [address], 10/29/2021 12:12:31 10/29/19 22 10/29/2021 COMPR EHENS ABBY METAB OLIC PANEL creatinine 0.91 mg/dL 0.50-0 .99 normal For patie nts >49 years of age, the refer ence limit for Creat inine is appro ximat jose 13% highe r for peopl e ident ified as Afric an-Am jailyn n. Not Available [address], [address], 10/29/2021 12:12:31 10/29/19 22 10/29/2021 COMPR EHENS ABBY METAB OLIC PANEL eGFR non-afr. senegalese 67 mL/mi n/1.7 3m2 > or = 60 normal Not Available [address], [address], 10/29/2021 12:12:31 10/29/19 22 10/29/2021 COMPR EHENS ABBY METAB OLIC PANEL eGFR 77 mL/mi n/1.7 3m2 > or = 60 normal Not Available [address], [address], 10/29/2021 12:12:31 10/29/19 22 10/29/2021 COMPR EHENS ABBY METAB OLIC PANEL BUN/creatini ne ratio not applic able (calc ) 6-22 Not Available [address], [address], 10/29/2021 12:12:31 10/29/19 22 10/29/2021 COMPR EHENS ABBY METAB OLIC PANEL sodium 143 mmol/ L 135-14 6 normal Not Available [address], [address], 10/29/2021 12:12:31 10/29/19 22 10/29/2021 COMPR EHENS ABBY METAB OLIC PANEL potassium 4.3 mmol/ L 3.5-5. 3 normal Not Available [address], [address], 10/29/2021 12:12:31 10/29/19 22 10/29/2021 COMPR EHENS ABBY METAB OLIC PANEL chloride 105 mmol/ L 98-110 normal Not Available [address], [address], 10/29/2021 12:12:31 10/29/19 22 10/29/2021 COMPR EHENS ABBY METAB OLIC PANEL carbon dioxide 31 mmol/ L 20-32 normal Not Available [address], [address], 10/29/2021 12:12:31 10/29/19 22 10/29/2021 COMPR EHENS ABBY METAB OLIC PANEL calcium 9.6 mg/dL 8.6-10 .4 normal Not Available [address], [address], 10/29/2021 12:12:31 10/29/19 22 10/29/2021 COMPR EHENS ABBY METAB OLIC PANEL protein, total 6.8 g/dL 6.1-8. 1 normal Not Available [address], [address], 10/29/2021 12:12:31 10/29/19 22 10/29/2021 COMPR EHENS ABBY METAB OLIC PANEL albumin 4.2 g/dL 3.6-5. 1 normal Not Available [address], [address], 10/29/2021 12:12:31 10/29/19 22 10/29/2021 COMPR EHENS ABBY METAB OLIC PANEL globulin 2.6 g/dL_ (calc ) 1.9-3. 7 normal Not Available [address], [address], 10/29/2021 12:12:31 10/29/19 22 10/29/2021 COMPR EHENS ABBY METAB OLIC PANEL albumin/glob ulin ratio 1.6 (calc ) 1.0-2. 5 normal Not Available [address], [address], 10/29/2021 12:12:31 10/29/19 22 10/29/2021 COMPR EHENS ABBY METAB OLIC PANEL bilirubin, total 0.5 mg/dL 0.2-1. 2 normal Not Available [address], [address], 10/29/2021 12:12:31 10/29/19 22 10/29/2021 COMPR EHENS ABBY METAB OLIC PANEL alkaline phosphatase 99 U/L 37-153 normal Not Available [address], [address], 10/29/2021 12:12:31 10/29/19 22 10/29/2021 COMPR EHENS ABBY METAB OLIC PANEL AST 18 U/L 10-35 normal Not Available [address], [address], 10/29/2021 12:12:31 10/29/19 22 10/29/2021 COMPR EHENS ABBY METAB OLIC PANEL ALT 15 U/L 6-29 normal Not Available [address], [address], 10/29/2021 12:12:31 10/29/19 22 10/29/2021 LIPID PANEL , STAND JOSE ENRIQUE cholesterol, total 160 mg/dL <200 normal Not Available [address], [address], 10/29/2021 12:12:30 10/29/19 22 10/29/2021 LIPID PANEL , STAND JOSE ENRIQUE HDL cholesterol 49 mg/dL > or = 50 low Not Available [address], [address], 10/29/2021 12:12:30 10/29/19 22 10/29/2021 LIPID PANEL , STAND JOSE ENRIQUE triglyceride s 266 mg/dL <150 high If a non-f astin g speci men was colle cted, consi dheeraj repea t trigl yceri de testi ng on a fasti ng speci men if clini sam indic ated. Abhishek amezquita et al. J. of Clin. Lipid ol. 2015; 9:129 -169. Not Available [facility] [address] [place] [address], [address], 10/29/2021 12:12:30 10/29/19 22 10/29/2021 LIPID PANEL [...] 310(1 9): 2061- 2068 (http ://ed ucati on.CamSemi. com/f aq/FA Q164) Not Available [facility] [address] [place], [address], 10/29/2021 12:12:30 10/29/19 22 10/29/2021 LIPID PANEL , STAND JOSE ENRIQUE chol/HDLC ratio 3.3 (calc ) <5.0 normal Not Available [facility] [address] [facility] [place], [address], 10/29/2021 12:12:30 10/29/19 22 10/29/2021 LIPID PANEL , STAND JOSE ENRIQUE non HDL cholesterol 111 mg/dL _(roxie c) <130 normal For patie nts with diabe abby plus 1 major ASCVD risk facto r, treat ing to a non-H DL-C goal of <100 mg/dL (LDL- C of <70 mg/dL ) is consi dered a thera peuti c optio n. Not Available [facility] [address] [place], [address], 10/29/2021 12:12:30 02/26/2002/26/2022 HEMOG LOBIN A1C hemoglobin [...] diabe abby for child adebayo. Not Available [address] [place], [address], 02/26/2022 15:45:07 02/26/20 22 02/26/2022 TSH TSH 3.04 mIU/L 0.40-4 .50 normal Not Available [facility] [address] [address] [place], [address], 02/26/2022 15:45:07 02/26/20 22 02/26/2022 T4, FREE T4, free 1.1 NG/dL 0.8-1. 8 normal Not Available [facility] [address] [address] [place], [address], 02/26/2022 15:45:06 02/26/20 22 02/26/2022 ALBUM IN, RANDO M URINE W/CRE ATINI NE creatinine, random urine 67 mg/dL 20-275 normal Not Available [address] [address] [place], [address], 02/26/2022 15:45:06 02/26/20 22 02/26/2022 ALBUM IN, RANDO M URINE W/CRE ATINI NE albumin, urine 0.2 mg/dL see note: normal Refer ence Range : Refer ence Range Not estab lishe d Not Available [facility] [address] [address] [address], [place], [address], 02/26/2022 15:45:06 02/26/20 22 02/26/2022 ALBUM IN, [...] a diagn ostic categ ory. Not Available [facility] [address] [address] [facility] [place], [address], 02/26/2022 15:45:06 02/26/20 22 02/26/2022 COMPR EHENS ABBY METAB OLIC PANEL glucose 121 mg/dL 65-99 high Fasti ng refer ence inter aiden For someo ne witho ut known diabe abby, a gluco se value betwe en 100 and 125 mg/dL is consi stent with predi abete s and shoul d be confi rmed with a follo w-up test. Not Available [facility] [address] [address] , [place], [address], 02/26/2022 15:45:05 02/26/20 22 02/26/2022 COMPR EHENS ABBY METAB OLIC PANEL urea nitrogen (BUN) 12 mg/dL 7-25 normal Not Available [address] [address] [place], [address], 02/26/2022 15:45:05 02/26/20 22 02/26/2022 COMPR EHENS ABBY METAB OLIC PANEL creatinine 0.83 mg/dL 0.50-1 .05 normal Not Available [address] [address] [place], [address], 02/26/2022 15:45:05 02/26/20 22 02/26/2022 COMPR EHENS [...] kdoqi /gfr% 5Fcal culat or Not Available [address], [address], 02/26/2022 15:45:05 02/26/20 22 02/26/2022 COMPR EHENS ABBY METAB OLIC PANEL BUN/creatini ne ratio not applic able (calc ) 6-22 Not Available [address] [address] [place], [address], 02/26/2022 15:45:05 02/26/20 22 02/26/2022 COMPR EHENS ABBY METAB OLIC PANEL sodium 139 mmol/ L 135-14 6 normal Not Available [address], [address], 02/26/2022 15:45:05 02/26/20 22 02/26/2022 COMPR EHENS ABBY METAB OLIC PANEL potassium 4.5 mmol/ L 3.5-5. 3 normal Not Available [address] [address] [place], [address], 02/26/2022 15:45:05 02/26/20 22 02/26/2022 COMPR EHENS ABBY METAB OLIC PANEL chloride 103 mmol/ L 98-110 normal Not Available [address], [address], 02/26/2022 15:45:05 02/26/20 22 02/26/2022 COMPR EHENS ABBY METAB OLIC PANEL carbon dioxide 28 mmol/ L 20-32 normal Not Available [address], [address], 02/26/2022 15:45:05 02/26/20 22 02/26/2022 COMPR EHENS ABBY METAB OLIC PANEL calcium 9.4 mg/dL 8.6-10 .4 normal Not Available [address], [address], 02/26/2022 15:45:05 02/26/20 22 02/26/2022 COMPR EHENS ABBY METAB OLIC PANEL protein, total 6.7 g/dL 6.1-8. 1 normal Not Available [address], [address], 02/26/2022 15:45:05 02/26/20 22 02/26/2022 COMPR EHENS ABBY METAB OLIC PANEL albumin 4.0 g/dL 3.6-5. 1 normal Not Available [address], [address], 02/26/2022 15:45:05 02/26/20 22 02/26/2022 COMPR EHENS ABBY METAB OLIC PANEL globulin 2.7 g/dL_ (calc ) 1.9-3. 7 normal Not Available [address], [address], 02/26/2022 15:45:05 02/26/20 22 02/26/2022 COMPR EHENS ABBY METAB OLIC PANEL albumin/glob ulin ratio 1.5 (calc ) 1.0-2. 5 normal Not Available [address], [address], 02/26/2022 15:45:05 02/26/20 22 02/26/2022 COMPR EHENS ABBY METAB OLIC PANEL bilirubin, total 0.3 mg/dL 0.2-1. 2 normal Not Available [address], [address], 02/26/2022 15:45:05 02/26/20 22 02/26/2022 COMPR EHENS ABBY METAB OLIC PANEL alkaline phosphatase 90 U/L 37-153 normal Not Available [address], [address], 02/26/2022 15:45:05 02/26/20 22 02/26/2022 COMPR EHENS ABBY METAB OLIC PANEL AST 14 U/L 10-35 normal Not Available [address], [address], 02/26/2022 15:45:05 02/26/20 22 02/26/2022 COMPR EHENS ABBY METAB OLIC PANEL ALT 13 U/L 6-29 normal Not Available [address], [address], 02/26/2022 15:45:05 02/26/20 22 02/26/2022 LIPID PANEL , STAND JOSE ENRIQUE cholesterol, total 109 mg/dL <200 normal Not Available [address], [address], 02/26/2022 15:45:05 02/26/20 22 02/26/2022 LIPID PANEL , STAND JOSE ENRIQUE HDL cholesterol 34 mg/dL > or = 50 low Not Available [address], [address], 02/26/2022 15:45:05 02/26/20 22 02/26/2022 LIPID PANEL , STAND JOSE ENRIQUE triglyceride s 192 mg/dL <150 high Not Available [facility] [address] [place], [address], 02/26/2022 15:45:05 02/26/20 22 02/26/2022 LIPID PANEL , STAND JOSE ENRIQUE LDL-choleste rol 49 mg/dL _(roxie c) normal Refer ence range : <100 Akushik able range <100 mg/dL for prima ry [...] 2061- 2068 (http ://ed ucati on.Qu [employer]. com/f aq/FA Q164) Not Available [facility] [address] [place], [address], 02/26/2022 15:45:05 02/26/20 22 02/26/2022 LIPID PANEL , STAND JOSE ENRIQUE chol/HDLC ratio 3.2 (calc ) <5.0 normal Not Available [facility] [address] [place], [address], 02/26/2022 15:45:05 02/26/20 22 02/26/2022 LIPID PANEL , STAND JOSE ENRIQUE non HDL cholesterol 75 mg/dL _(roxie c) <130 normal For patie nts with diabe abby plus 1 major ASCVD risk facto r, treat ing to a non-H DL-C goal of <100 mg/dL (LDL- C of <70 mg/dL ) is consi dered a thera peuti c optio n. Not Available [facility] [address] [place], [address], 02/26/2022 15:45:05 09/03/19 23 09/14/2022 LIPID PANEL , STAND JOSE ENRIQUE cholesterol, total 130 mg/dL <200 normal Not Available [address], [address], 09/14/2022 15:23:05 09/03/19 23 09/14/2022 LIPID PANEL , STAND JOSE ENRIQUE HDL cholesterol 42 mg/dL > or = 50 low Not Available [address], [address], 09/14/2022 15:23:05 09/03/19 23 09/14/2022 LIPID PANEL , STAND JOSE ENRIQUE triglyceride s 150 mg/dL <150 high Not Available [address], [address], 09/14/2022 15:23:05 09/03/19 23 09/14/2022 LIPID PANEL [...] 2061- 2068 (http ://ed ucati on.Qu Majo lopezNetronome [employer]. com/f aq/FA Q164) Not Available [address], [address], 09/14/2022 15:23:05 09/03/19 23 09/14/2022 LIPID PANEL , STAND JOSE ENRIQUE chol/HDLC ratio 3.1 (calc ) <5.0 normal Not Available [address] [place], [address], 09/14/2022 15:23:05 09/03/19 23 09/14/2022 LIPID PANEL , STAND JOSE ENRIQUE non HDL cholesterol 88 mg/dL _(roxie c) <130 normal For patie nts with diabe abby plus 1 major ASCVD risk facto r, treat ing to a non-H DL-C goal of <100 mg/dL (LDL- C of <70 mg/dL ) is consi dered a thera peuti c optio n. Not Available [address] [address] [place], [address], 09/14/2022 15:23:05 09/03/19 23 09/14/2022 COMPR EHENS ABBY METAB OLIC PANEL glucose 258 mg/dL 65-99 high Fasti ng refer ence inter aiden For someo ne witho ut known diabe abby, a gluco se value >125 mg/dL indic ates that they may have diabe abby and this shoul d be confi rmed with a follo w-up test. Not Available [facility] [address] [place], [address], 09/14/2022 15:23:06 09/03/19 23 09/14/2022 COMPR EHENS ABBY METAB OLIC PANEL urea nitrogen (BUN) 11 mg/dL 7-25 normal Not Available [facility] [address] [place], [address], 09/14/2022 15:23:06 09/03/19 23 09/14/2022 COMPR EHENS ABBY METAB OLIC PANEL creatinine 0.87 mg/dL 0.50-1 .05 normal Not Available [facility] [address], [address], 09/14/2022 15:23:06 09/03/19 23 09/14/2022 COMPR EHENS [...] kdoqi /gfr% 5Fcal culat or Not Available [address] [place], [address], 09/14/2022 15:23:06 09/03/19 23 09/14/2022 COMPR EHENS ABBY METAB OLIC PANEL BUN/creatini ne ratio NOT APPLIC ABLE (calc ) 6-22 Not Available [address], [address], 09/14/2022 15:23:06 09/03/19 23 09/14/2022 COMPR EHENS ABBY METAB OLIC PANEL sodium 138 mmol/ L 135-14 6 normal Not Available [address], [address], 09/14/2022 15:23:06 09/03/19 23 09/14/2022 COMPR EHENS ABBY METAB OLIC PANEL potassium 4.7 mmol/ L 3.5-5. 3 normal Not Available [address], [address], 09/14/2022 15:23:06 09/03/19 23 09/14/2022 COMPR EHENS ABBY METAB OLIC PANEL chloride 103 mmol/ L 98-110 normal Not Available [address], [address], 09/14/2022 15:23:06 09/03/19 23 09/14/2022 COMPR EHENS ABBY METAB OLIC PANEL carbon dioxide 28 mmol/ L 20-32 normal Not Available [address], [address], 09/14/2022 15:23:06 09/03/19 23 09/14/2022 COMPR EHENS ABBY METAB OLIC PANEL calcium 9.6 mg/dL 8.6-10 .4 normal Not Available [address], [address], 09/14/2022 15:23:06 09/03/19 23 09/14/2022 COMPR EHENS ABBY METAB OLIC PANEL protein, total 7.2 g/dL 6.1-8. 1 normal Not Available [address], [address], 09/14/2022 15:23:06 09/03/19 23 09/14/2022 COMPR EHENS ABBY METAB OLIC PANEL albumin 4.3 g/dL 3.6-5. 1 normal Not Available [address], [address], 09/14/2022 15:23:06 09/03/19 23 09/14/2022 COMPR EHENS ABBY METAB OLIC PANEL globulin 2.9 g/dL_ (calc ) 1.9-3. 7 normal Not Available [address], [address], 09/14/2022 15:23:06 09/03/19 23 09/14/2022 COMPR EHENS ABBY METAB OLIC PANEL albumin/glob ulin ratio 1.5 (calc ) 1.0-2. 5 normal Not Available [address], [address], 09/14/2022 15:23:06 09/03/19 23 09/14/2022 COMPR EHENS ABBY METAB OLIC PANEL bilirubin, total 0.4 mg/dL 0.2-1. 2 normal Not Available [address], [address], 09/14/2022 15:23:06 09/03/19 23 09/14/2022 COMPR EHENS ABBY METAB OLIC PANEL alkaline phosphatase 97 U/L 37-153 normal Not Available [address] [address] [place], [address], 09/14/2022 15:23:06 09/03/19 23 09/14/2022 COMPR EHENS ABBY METAB OLIC PANEL AST 11 U/L 10-35 normal Not Available [address] [address] [place], [address], 09/14/2022 15:23:06 09/03/19 23 09/14/2022 COMPR EHENS ABBY METAB OLIC PANEL ALT 12 U/L 6-29 normal Not Available [address] [address] [place], [address], 09/14/2022 15:23:06 09/03/19 23 09/14/2022 ALBUM IN, RANDO M URINE W/CRE ATINI NE creatinine, random urine 21 mg/dL 20-275 normal Not Available [address] [address] [place], [address], 09/14/2022 15:23:06 09/03/19 23 09/14/2022 ALBUM IN, RANDO M URINE W/CRE ATINI NE albumin, urine <0.2 mg/dL see note: normal Refer ence Range : Refer ence Range Not estab lishe d Not Available [address], [address], 09/14/2022 15:23:06 09/03/19 23 09/14/2022 ALBUM IN, [...] a diagn ostic categ ory. Not Available [employer] [address] [place], [address], 09/14/2022 15:23:06 09/03/1909/14/2022 DEXAM ETHAS ONE dexamethason [...] for clini roxie purpo ses. Not Available [employer] [address] [address] [place], [address], 09/14/2022 15:23:07 09/03/1909/14/2022 T4, FREE T4, free 0.9 NG/dL 0.8-1. 8 normal Not Available [facility] [address] [address] [place], [address], 09/14/2022 15:23:08 09/03/1909/14/2022 TSH TSH 0.81 mIU/L 0.40-4 .50 normal Not Available [employer] [address] [address] [place], [address], 09/14/2022 15:23:08 09/03/1909/14/2022 CORTI NERI, A.M. cortisol, A.M. 1.4 mcg/d L low Refer ence Range 8 a.m. (7-9 a.m.) Speci men: 4.0-2 2.0 Not Available [address] [address] [place], [address], 09/14/2022 15:23:09 09/03/19 23 09/14/2022 HEMOG LOBIN [...] diabe abby for child adebayo. Not Available [address] [address] [place], [address], 09/14/2022 15:23:09 10/04/19 23 10/11/2022 ACTH, PLASM A acth, plasma 29 pg/mL 6-50 Refer ence range appli es only to speci mens colle cted betwe en 7am-1 0am. Not Available [facility] [address] [address] [place], [address], 10/12/2022 00:03:05 10/04/19 23 10/11/2022 CORTI NERI, FREE, 24 HOUR URINE total volume 1000 mL Not Available [facility] [address] [address] [place], [address], 10/12/2022 00:03:06 10/04/19 23 10/11/2022 CORTI NERI, FREE, 24 HOUR URINE cortisol, free, urine 12.1 mcg/2 4_h 4.0-50 .0 Not Available [facility] [address], [address], 10/12/2022 00:03:06 10/04/1910/11/2022 CORTI NERI, FREE, 24 HOUR URINE cortisol, free, urine 12.5 mcg/g _crea t Refer ence Range : ADULT S: 3.1-4 2.3 Not Available [facility] [address] [address] [place], [address], 10/12/2022 00:03:06 10/04/1910/11/2022 CORTI NERI, FREE, 24 [...] for clini roxie purpo ses. Not Available [employer] [address] [place], [address], 10/12/2022 00:03:06 10/04/1910/11/2022 CORTI NERI, LC/MS , SALIV A, 2 SAMPL ES draw date 1 023 Not Available [employer] [address] [address] [place], [address], 10/12/2022 00:03:06 10/04/1910/11/2022 CORTI NERI, LC/MS , SALIV A, 2 SAMPL ES draw time 1 2330 Not Available [employer] [address] [place], [address], 10/12/2022 00:03:06 10/04/19 23 10/11/2022 CORTI NERI, [...] for clini roxie purpo ses. Not Available [employer] [facility] [address] [place], [address], 10/12/2022 00:03:06 10/04/19 23 10/11/2022 CORTI NERI, LC/MS , SALIV A, 2 SAMPL ES draw date 2 023 Not Available [facility] [address] [place], [address], 10/12/2022 00:03:06 10/04/19 23 10/11/2022 CORTI NERI, LC/MS , SALIV A, 2 SAMPL ES draw time 2 2330 Not Available [employer] [facility] [address] [place], [address], 10/12/2022 00:03:06 10/04/19 23 10/11/2022 CORTI NERI, [...] for clini roxie purpo ses. Not Available [employer] [facility] [address] [place], [address], 10/12/2022 00:03:06 10/04/19 23 10/11/2022 CORTI NERI, A.M. cortisol, A.M. 20.0 mcg/d L normal Refer ence Range 8 a.m. (7-9 a.m.) Speci men: 4.0-2 2.0 Not Available [employer] [facility] [address] [place], [address], 10/12/2022 00:03:07 11/04/19 23 11/03/2022 CT, adren al, w/ wo contr ast No observ ation record ed. [facility] [address] [facility] [address], [place], [address], 11/14/2022 15:31:03 11/30/19 23 11/29/2022 MAMMO , scree aly, digit al, bilat eral No observ ation record ed. [email or web address] [facility] [address] [facility] [address], [place], [address], 12/09/2022 14:24:07 12/01/19 23 11/29/2022 bone densi ty No observ ation record ed. [email or web address] [facility] [address] [facility] [address], [place], [address], 11/30/2022 20:16:19 Result Notes None recorded. Problems Name Problem SNOMED Code Status Onset Date Resolution Date Notes Provider Name and Address Organization Details Recorded Time Uncontrolled type 2 diabetes mellitus 098620014 Active 2021 Not Available [facility] 3 01:55:21 Well controlled type 2 diabetes mellitus 133715740 Active 2022 Not Available [facility] 3 01:55:21 Dyslipidemia 957794972 Active 2022 Not Available [facility] 3 01:55:21 Menopausal and postmenopausa l disorders 942809855 Active 2022 Not Available [facility] 3 01:55:21 Weight gain 4583864 Active 2022 Not Available [facility] 3 01:55:21 Abnormal cortisol 509292545 Active 2022 Not Available [facility] 3 01:55:21 Adrenal adenoma 530735882 Active 2022 Not Available [facility] 3 01:55:21 Adrenal [place]'s syndrome 337299690 Active 2022 Not Available [facility] 3 01:55:21 Problem Notes None recorded. Procedures Surgical History Date Name Laterality Status Provider Name and Address Organization Details Recorded Time Colonoscopy completed Not Available [facility] 06/22/2022 13:12:18 Imaging Results Imaging Date Name Status LastModified by Organiz ation Details LastModified Time 11/03/2022 CT, adrenal, w/ wo contrast completed [email or web address] [facility] [address] [facility] [address], [place], [address], 11/14/2022 15:31:03 11/29/2022 MAMMO, screening, digital, bilateral completed [email or web address] [address], [address], 12/09/2022 14:24:07 11/29/2022 bone density completed [email or web address] [address], [place], [address], 11/30/2022 20:16:19 Procedure Notes None recorded. Medical [...] % 96 % 72 /min 97.7 [degF] 97454.7 7 g 120 mm[Hg] 82 mm[Hg] Not Available [facility] 3 13:12:33 Date Recorded Body mass index (BMI) Body height Oxygen saturation Oxygen saturation in Arterial blood by Pulse oximetry Heart rate Body temperature Body weight Systolic blood pressure Diastolic blood pressure Provider Name and Address Organization Details Last Updated DateTime 2 32.4 kg/m2 160.02 cm 99 % 99 % 79 /min 97.8 [degF] 30555.4 g 110 mm[Hg] 80 mm[Hg] Not Available [facility] 3 13:12:33 Date Recorded Body mass index (BMI) Body height Oxygen saturation Oxygen saturation in Arterial blood by Pulse oximetry Heart rate Body temperature Body weight Systolic blood pressure Diastolic blood pressure Provider Name and Address Organization Details Last Updated DateTime 2 32.9 kg/m2 160.02 cm 97 % 97 % 69 /min 97.8 [degF] 91449.1 8 g 110 mm[Hg] 75 mm[Hg] Not Available [facility] 3 13:12:33 Date Recorded Body height Body mass index (BMI) Body weight Body temperature Respiratory rate Heart rate Systolic blood pressure Diastolic blood pressure Provider Name and Address Organization Details Last Updated DateTime 3 160.02 cm 32.9 kg/m2 51702.4 6 g 97.3 [degF] 20 /min 95 /min 144 mm[Hg] 91 mm[Hg] ZA Grimes [place] [facility] [place] [facility] 3 14:52:28 Social History Question Answer Notes LastModified by Organizat ion Details LastModified Time Tobacco Smoking Status Current Every Day Smoker Not Available [facility] 06/22/2022 13:12:14 What Is Your Level Of Alcohol Consumption? None [id number] Information not available 06/22/2022 What Is Your Level Of Caffeine Consumption? Moderate [id number] Information not available 06/22/2022 In The 14 Days Before Symptom Onset, Have You Had Close Contact With A Laboratory-confirm ed COVID-19 While That Case Was Ill? No [id number] Information not available 06/22/2022 In The 14 Days Before Symptom Onset, Have You Had Close Contact With A Person Who Is Under Investigation For COVID-19 While That Person Was Ill? No [id number] Information not available 06/22/2022 What Type Of Diet Are You Following? REGULAR [id number] Information not available 06/22/2022 What Is Your Relationship Status? [id number] Information not available 06/22/2022 Do You Use Your Seat Belt Or Car Seat Routinely? Yes [id number] Information not available 06/22/2022 How Much Tobacco Do You Smoke? 1 PPW [id number] Information not available 06/22/2022 Do You Use Any Illicit Or Recreational Drugs? No [id number] Information not available 06/22/2022 Have You Recently Traveled Abroad? No [id number] Information not available 06/22/2022 Do You Have Any Dietary Restrictions? No [id number] Information not available 06/22/2022 Sex: Female Functional Status None recorded. Mental Status None recorded. Family History Nothing Reported. Medical History Condition Response LUNG DISEASE/DISORDER COPD Y HIGH CHOLESTEROL / HYPERLIPIDEMIA Y EYE PROBLEMS Y HAVE YOU BEEN HOSPITALIZED OR SEEN IN [facility] ER IN THE PAST YEAR ? [...] SNOMED-CT Code Diagnosis ICD10 Code Diagnosis Note [id number] [facility] [address] [place] [address] 05/31/2021 00:00:00 05/31/2021 14:06:32 [id number] [facility] [address] [place] [address] 07/23/2021 00:00:00 07/23/2021 16:29:56 [id number] [facility] [address] [place] [address] 12/28/2021 00:00:00 12/28/2021 13:59:46 [id number] Yumiko Acosta MD [facility] [address] [place] [address] 08/09/2022 14:28:35 08/09/2022 15:17:25 Well controlled type 2 diabetes mellitus 293124919 E11.9 A1C of 6.8% down from 7.2%-carmen [...] DST to screen for hypercorti solism. Dyslipidemia 656911741 E 78.5 Continue statin therapy. Menopausal and postmenopausal disorders 135861797 N95.9 Send for bone density to screen for osteoporos is. Weight gain 5915238 R63. 5 Will send for low dose [...] she chooses to go outside of the [facility] system to obtain labwork she was [...] [employer] Member ID Guarantor Name 08/09/2022 1 [facility] (MEDICARE REPLACEMENT/A DVANTAGE - HMO) [id number] Keyla Arreaga [id number] Keyla Arreaga Notes Date Note Type Note [...] her right ring finger removed- went to [place] we referred to Dr. De Souza. usually [...] 1.1 ng/mLmicroalbumin 3 ug/mgglucose 121 mg/dLCr normalLFT [id number]/34/49 Yumiko Acosta MD [address], [place], [address], [facility] 08/09/2022 15:19:30 OBGyn Episode No OBEpisode recorded.
--- OUTSIDE RECORDS SUMMARY | 2024-07-28 09:23 | XMS_ITS | Data Portability ---
Author Organization [facility] SYSTEM[facility] Harjinder Address [address] [place] [address] Care Team Providers Care Accounting Support Specialist Name Role Phone ELIZ GEORGE Retail Special Event Associate ABDULKADIR CRAFT OTHER RADHA LYNCH Primary Care Provider MIGUEL Agudelo Photo Intern Assessment No assessment recorded. Plan of Treatment Reminders Order Date Submit Date Provider Last Modified By Organization Details Last Modified Time Details Appointments None recorded. Lab amylase + lipase, serum 2018 019 [facility], [address] [facility], [facility], [place], [address], 9 06:37:29 CMP, serum or plasma 2018 019 [facility], [address] [facility], [facility], [place], [address], 9 06:37:29 erythrocy te sedimenta tion rate by arturo n method 2018 019 [facility]A [facility], [address] [facility], [facility], [place], [address], 9 06:37:30 Referral diabetic ophthalmo logy referral 2018 019 [email or web address] [facility], [address], [place], [address], 9 09:48:59 gastroent erologist referral 2018 019 [email or web address] Not available 9 17:41:39 gastroent erologist referral - Please call pt to schedule appointme nt, Thank you 2018 019 THERESA Abby Munoz, [address], [place], [address], 9 13:40:42 Procedures None recorded. Surgeries None recorded. Imaging MAMMO, screening , digital, bilateral 2018 [facility], [address], [facility] [address], [place], [address], 9 15:48:23 Medication Orders Lyrica 50 mg capsule 2018 019 [email or web address], [address] [place] [address], [address], 0 09:21:41 Xeljanz XR 11 mg tablet,ex tended release 2018 019 [email or web address] [employer] [facility], [address] [place] [address], [address], 9 10:46:38 Creon 6,000-19, 000-30,00 0 unit capsule,d elayed release 2018 019 [email or web address] [employer] [facility], [address] [place] [address], [address], 9 11:58:52 Lantus U-100 Insulin 100 unit/mL subcutane ous solution 2018 019 [facility], [address], [place], [place], [id number], 9 12:20:48 gabapenti n 300 mg capsule 2018 019 [facility], [address], [place], [place], [id number], 9 11:45:34 guaifenes in ER 600 mg tablet, extended release 12 hr 2018 019 [email or web address] [facility] #[facility]71, [address], [place], [place], [id number], 9 11:56:09 Patient TargetsNo targets recorded. Patient Instructions Encounter Date Encounter Id Patient Instructions Last Modified By Organization Details Last Modified Time 12/03/2018 [id number] learning about type 2 diabetes [email or web address] Not available 12/03/2018 11:48:49 type 2 diabetes: care instructions Not available 12/03/2018 11:48:49 learning about breast cancer screening Not available 12/03/2018 11:48:49 03/03/2020 [id number] Stress Incontinence: Care Instructions Not available 03/03/2020 09:42:07 Reason for Referral Baggage Agent Supervisor Referral for Recurrent pancreatitis recurrent pancreatitis, possible Lupus (seeing rheum) Please call pt to schedule appointment, Thank you Referring Physician: Radha Lynch, Internal Medicine, Encounter Date: 08/21/2018 Diabetic Ophthalmology Refer ral for Type 2 diabetes mellitus Referring Physician: Eliz George SEAFOOD PROCESS WORKER, Encounter Date: 12/03/2018 Baggage Agent Supervisor Referral for Screening for malignant neoplasm of colon Colonoscopy done 2009. Supposed to be repeated 2014. Schedule for February Referring Physician: Eliz George SEAFOOD PROCESS WORKER, Encounter Date: 12/03/2018 Results Created Date Observation Date Name Description Value Unit Range Abnormal Flag Note LastModifiedBy Organization Detail LastModifiedTime 11/21/19 19 11/21/2018 CMP, serum or plasm a glucose 251 mg/dL 65-99 above high normal Not Available [facility] ([facility]) [address] [facility], [place], [address], 11/21/2018 06:37:29 11/21/19 19 11/21/2018 CMP, serum or plasm a BUN 8 mg/dL 8-27 Not Available [facility] ([facility]) [address] [place], [address], 11/21/2018 06:37:29 11/21/1911/21/2018 CMP, serum or plasm a creatinine 0.75 mg/dL 0.57-1 .00 Not Available [facility] ([facility]) [address] [place], [address], 11/21/2018 06:37:29 11/21/1911/21/2018 CMP, serum or plasm a eGFR if nonafricn AM 86 mL/mi n/1.7 3 >59 Not Available [facility] ([facility]) [address] [facility] [place], [address], 11/21/2018 06:37:29 11/21/1911/21/2018 CMP, serum or plasm a eGFR if africn AM 99 mL/mi n/1.7 3 >59 Not Available [facility] ([facility]) [address] [facility] [place], [address], 11/21/2018 06:37:29 11/21/1911/21/2018 CMP, serum or plasm a BUN/creatini ne ratio 11 12-28 below low normal Not Available [facility] ([facility]) [address] [place] [place], [address], 11/21/2018 06:37:29 11/21/1911/21/2018 CMP, serum or plasm a sodium 138 mmol/ L 134-14 4 Not Available [facility] ([facility]) [address] [facility] [place], [address], 11/21/2018 06:37:29 11/21/1911/21/2018 CMP, serum or plasm a potassium 4.3 mmol/ L 3.5-5. 2 Not Available [facility] ([facility]) [address] [place] [place], [address], 11/21/2018 06:37:29 11/21/1911/21/2018 CMP, serum or plasm a chloride 101 mmol/ L 96-106 Not Available [facility] ([facility]) [address] [place] [place], [address], 11/21/2018 06:37:29 11/21/1911/21/2018 CMP, serum or plasm a carbon dioxide, total 23 mmol/ L 20-29 Not Available [facility] ([facility]) [address] [place] [place], [address], 11/21/2018 06:37:29 11/21/1911/21/2018 CMP, serum or plasm a calcium 9.3 mg/dL 8.7-10 .3 Not Available [facility] ([facility]) [address] [place] [place], [address], 11/21/2018 06:37:29 11/21/1911/21/2018 CMP, serum or plasm a protein, total 6.6 g/dL 6.0-8. 5 Not Available [facility] ([facility]) [address] [place] [place], [address], 11/21/2018 06:37:29 11/21/1911/21/2018 CMP, serum or plasm a albumin 4.0 g/dL 3.6-4. 8 Not Available [facility] ([facility]) [address] [place], [address], 11/21/2018 06:37:29 11/21/1911/21/2018 CMP, serum or plasm a globulin, total 2.6 g/dL 1.5-4. 5 Not Available [facility] ([facility]) [address] [place] [place], [address], 11/21/2018 06:37:29 11/21/1911/21/2018 CMP, serum or plasm a A/G ratio 1.5 1.2-2. 2 Not Available [facility] ([facility]) [address] [place], [address], 11/21/2018 06:37:29 11/21/1911/21/2018 CMP, serum or plasm a bilirubin, total 0.4 mg/dL 0.0-1. 2 Not Available [facility] ([facility]) [address] [facility] [place], [address], 11/21/2018 06:37:29 11/21/1911/21/2018 CMP, serum or plasm a alkaline phosphatase 137 IU/L 39-117 above high normal Not Available [facility] ([facility]) [address] [facility] [place], [address], 11/21/2018 06:37:29 11/21/1911/21/2018 CMP, serum or plasm a AST (SGOT) 22 IU/L 0-40 Not Available [facility] ([facility]) [address] [place], [address], 11/21/2018 06:37:29 11/21/1911/21/2018 CMP, serum or plasm a ALT (SGPT) 22 IU/L 0-32 Not Available [facility] ([facility]) [address] [place], [address], 11/21/2018 06:37:29 11/21/19 19 11/21/2018 amyla se + lipas e, serum amylase 72 U/L 31-124 Not Available [facility] ([facility]) [address] [place], [address], 11/21/2018 06:37:29 11/21/1911/21/2018 amyla se + lipas e, serum lipase 49 U/L 14-72 Not Available [facility] ([facility]) [address] [place], [address], 11/21/2018 06:37:29 11/21/1911/21/2018 eryth rocyt e sedim entat ion rate by emeka zelaya metho d sedimentatio n rate-westerg adebayo 58 mm/HR 0-40 above high normal Not Available [facility] ([facility]) [address], [place], [address], 11/21/2018 06:37:30 08/05/19 19 08/03/2018 CT, abdom en + pelvi s, w/ contr ast No observ ation record ed. [facility] (Imaging) [address] [facility] [address] [facility], [place], [address], 08/06/2018 09:32:46 12/13/19 19 12/12/2018 MAMMO , scree aly, digit al, bilat eral No observ ation record ed. [address] (Imaging) [address] [facility] [address], [place], [address], 01/01/2019 10:13:18 Result Notes None recorded. Problems Name Problem SNOMED Code Status Onset Date Resolution Date Notes Provider Name and Address Organization Details Recorded Time Rheumato id arthridereck s 18326848 Active [place], [place] - [facility] 9 10:46:46 Abdomina l aortic aneurysm 727534380 Active 2017 [place] [facility] 9 10:46:46 Tobacco user 752204294 Active 2017 [place] [facility] 9 10:46:46 Fibromya lgia 171337175 Active [place] [facility] 9 10:46:46 History of pancreat itis 87460414289 107 Active medicati on induced from MTX and Invokana [place] [facility] 9 10:46:46 Vitamin D deficien cy 38440723 Active [place] [facility] 9 10:46:46 Chronic obstruct kendra pulmonar y disease 32227686 Active per prior PCP had been on Dulera 100/5, albutero l nebs [place] [facility] 9 10:46:46 Coronary atherosc lerosis 396221738 Active s/p stent 04/2016 Gillian [place], [place] [facility] 9 10:46:46 Mixed hyperlip idemia 439513753 [place] [facility] 9 10:46:46 Polyneur opathy 77976197 [place] [facility] 9 10:46:46 Obstruct kendra sleep apnea syndrome 49162571 Active 2015 severe REM dependen t CANDICE; recommen d CPAP titratio n (Dr. Abdulkadir Craft) [place] [facility] 9 10:46:46 Divertic ulosis of sigmoid colon 879581222 Active [address] abd/pelv is report Gillian [place] - [facility] 9 10:46:46 Steatosi s of liver 349818309 Active 2015 per MRI MRCP report [place] [facility] 9 10:46:46 Sliding hiatus hernia 284910285 [place] Gill[place] [facility] 9 10:46:46 Bilatera l inguinal hernia 68256348 Active containi ng fat. [place] [facility] 9 10:46:46 Chronic pancreat itis 829104384 Active 2019 FRANCIS [place], [place] [facility] 0 09:33:29 Arthriti s 1077709 Completed 201612/28/2017 Radha Lynch PA-C Attn: Yolanda g,[address] [facility], [place], [address] , [place] [facility] 8 14:50:36 Neuropat hy 796637098 Active 2016 Gillian [place] [facility] 9 10:46:46 Type 2 diabetes mellitus 51077808 Active 2016 Gill[place] [facility] 9 10:46:46 Problem Notes None recorded. Procedures Surgical History Date Name Laterality Status Provider Name and Address Organization Details Recorded Time 12/13/19 19 Most Recent Mammogram completed Gillian JohnsonFRANCIS mcgill [place] - [facility] 03/03/2020 09:22:59 05/25/19 19 Nebulizer tx completed Radha Lynch PA-C Attn: Accounting, [address] [facility], [place], [address], [place] [facility] 05/25/2018 12:49:54 02/23/20 17 Angioplasty With Stent completed ZA Kohli [place] - [facility] 12/28/2017 14:33:23 11/16/19 17 Date of Last Pap Smear completed Gillian [place] - [facility] 12/03/2018 10:46:14 10/23/19 17 Angioplasty With Stent completed ZA Kohli [place] - [facility] 12/28/2017 14:33:19 09/01/19 10 Other completed Gillian [place] - [facility] 2016 14:31:50 04/24/19 10 [facility] 14:32:15 04/24/19 10 Hernia Repair completed [place]ian [place] - [facility] 2016 14:32:37 04/24/18 84 Other completed [place] [facility] 2016 14:33:17 04/24/18 78 [facility] 14:32:54 Imaging Results Imaging Date Name Status LastModified by Organiz ation Details LastModified Time 08/03/2018 CT, abdomen + pelvis, w/ contrast completed [facility] (Imaging) [address] [place] [address], [address], 08/06/2018 09:32:46 12/12/2018 MAMMO, screening, digital, bilateral [address] [place] [address], [address], 01/01/2019 10:13:18 Procedure Notes None recorded. Medical Equipment None Reported. Allergies Allergen ID Allergen Name Allergen Category Reaction Reaction Severity Criticality Documentation Date Start Date Code Code System Note Provider Name and Address Organization Details Recorded Time 536473 metformin medicatio n nausea vomiting Not available Not available Not available 12/28/2017 6809 RxNorm Not Available Not Available Not Available 94102 Invokana medicatio n other Not available Not available 2016 97518 64 RxNorm cause s pt to have pancr eatit is Not Available Not Available Not Available 68991 methotrex ate medicatio n other Not available [...] Updated DateTime 9 160.02 cm 33.2 kg/m2 28342.4 9 g 97 /min 16 /min 96.1 [degF] 98 % 98 % 128 mm[Hg] 84 mm[Hg] ZA Kohli [place] - [facility] 9 11:31:33 Date Recorded Body height Body mass index (BMI) Body weight Heart rate Body temperature Oxygen saturation Oxygen saturation in Arterial blood by Pulse oximetry Provider Name and Address Organization Details Last Updated DateTime 9 160.02 cm 32.5 kg/m2 55942.1 2 g 79 /min 98.6 [degF] 97 % 97 % ZA Kohli [facility] 9 11:54:15 Date Recorded Body height Body mass index (BMI) Body weight Heart rate Respiratory rate Body temperature Oxygen saturation Oxygen saturation in Arterial blood by Pulse oximetry Systolic blood pressure Diastolic blood pressure Provider Name and Address Organization Details Last Updated DateTime 9 160.02 cm 32.7 kg/m2 85562.4 3 g 94 /min 16 /min 97.2 [degF] 96 % 96 % 122 mm[Hg] 78 mm[Hg] ZA Kohli [facility] 9 12:01:42 Date Recorded Body height Body mass index (BMI) Body weight Systolic blood pressure Diastolic blood pressure Provider Name and Address Organization Details Last Updated DateTime 12/03/2018 160.02 cm 32.9 kg/m2 28996.74 g 120 mm[Hg] 90 mm[Hg] Gillian Washburn [facility] 9 10:49:55 Social History Question Answer Notes LastModified by Organizat ion Details LastModified Time Tobacco Smoking Status Current Every Day Smoker Gillian JohnsonFRANCIS mcgill [facility], [facility] 03/03/2020 09:23:36 What Is Your [...] Anemia N Anesthesia Complications N Heart Attack ([place]) Y Headaches/Migraines Y Anxiety Disorder Y Diabetes [...] SNOMED-CT Code Diagnosis ICD10 Code Diagnosis Note [id number] Eliz George Mina RAMSEY (SEAFOOD PROCESS WORKER) [address] [place] [address] 2016 13:54:39 11/17/2016 11:52:56 Screening for malignant neoplasm of colon 220627308 Z12.11 Was supposed to have 5 year repeat in 2014. Saw Dr. Carter at [place]. Referral sent to Dr. Carter Screening for malignant neoplasm of breast 457030124 Z12.31 Gynecologi c examination 17862847 Z01.411 No pap since 1999. Pap done. Pt. to call for results. Obesity 664570039 E66.9 Nutrition and exercise discussed. [id number] PAULINO Saunders (Adult Med) [address] [place] [address] 12/28/2017 13:53:36 01/16/2018 09:20:43 Type 2 diabetes mellitus 25971782 E11.69 reviewed diet with patient, possible gastropare sis due to DM. Also discussed medication s and cause for possible hypoglycem ia especially if she is not eating while taking SFU. We will check A1c and see what med changes can be done. Multi vess el coronary artery disease 090641190 I25.10 we will get records from cardiology , cont plavix, statin, ASA, carvedilol Neuropathy 074505471 G62 .9 She felt gabapentin trial worked better than lyrica will start that. Try OTC lidocaine 4% at bedtime. Rheumatoid arthritis 698 26896 M06.9 sees Rheum, on xeljan x2 yrs. Nausea, vo miting and diarrhea 9302262 R11.2 need to eval for gastropare sis due to recurrent sxs and poor appetite. also has h/o pancreatit is on MTX. Chronic constipation 236 974345 K59.09 possibly related to gastropare sis. Immunization refused 275 437357 Z28.20 Tobacco user 466248323 Z 72.0 patient advised to restart Chantix, she will call when she is ready to restart. Abdominal aortic aneurysm 862186459 I71.4 3.5cm per patient at last u/s. cont to follow w/ vascular surgery Depressive disorder 3548 9007 F33.1 she is reluctant to start anti-depre ssant at this time. we will revisit at f/u. [id number] PAULINO Saunders (Adult Med) [address] [place] [address] 01/25/2018 14:58:13 01/26/2018 17:55:04 Type 2 diabetes mellitus 55619416 E11.69 reviewed A1c, blood sugars, says she still doesn't understand it. Patient advised that she needs to call cardiology about the chest pain first we can reschedule for diabetes management . Neuropathy 954372518 G62 .89 with DM and CAD x 2 stents. She feels gabapentin is helping, she hasn't fully titrated up to TID dose yet. Chest pain 53650671 R07. 89 Monday had sharp pain started underneath right breast and then moved to left side of chest into left jaw and shoulder. Patient advised to call her cardiologi st today, provided number and go to ER if pain returns. Chronic constipation 236 875755 K59.09 possibly related to gastropare sis. advised her to schedule gastric emptying study. Nausea and vomiting 1692 1999 R11.2 improved since constipati on has been better. [id number] PAULINO Saunders (Adult Med) [address] [place] [address] 03/01/2018 14:52:45 03/23/2018 15:06:16 Coronary atherosclerosis 520331288 I25.119 s/p stent placement at proximal LAD, cont f/u with cardiology as planned, cont smoking cessation. Agree w/ nutritioni st referral for both DM and CAD. Cont all meds from hospital stay. Type 2 sanjuana betes mellitus 46595865 E11.[address] and DM management as she is still not sure how to manage her blood sugars [id number] PAULINO Saunders (Adult Med) [address] [place] [address] 05/17/2018 10:11:00 05/21/2018 10:26:57 Type 2 diabetes mellitus 97106203 E11.69 reviewed A1c 7.7%, blood sugars in 300s to 500s lately. Discussed options and with her recent MO, recommend she start insulin rather than DPP4. Instructed on how to use the pen, but she would prefer insulin vial, her mom used it and she is familiar on how to use the insulin syringe and needle. Cont to keep track of glucose, short term f/u in 4 weeks. Call if any problems. Discussed hypoglycem ia sxs. Cont oral meds for now. [id number] PAULINO Saunders (Adult Med) [address] [place] [address] 05/25/2018 11:10:10 05/28/2018 09:20:51 Chronic obstructive pulmonary disease 27132425 J44.0 likely cause of current cough sxs. Cont zyrtec, fluticsone nasal spray, treat w/ abx and use pro-air inhaler which she hasn't been using. she has nebulizer at home, not using currently. cont smoking cessation Type 2 sanjuana betes mellitus 14376801 E11.69 Increase insulin to 15u if glucose 300s, up to 20u if glucose 400 or greater. Staff assisted pt logging into portal and she will send blood sugars if not responding to increase in Lantus. [id number] PAULINO Saunders (Adult Med) [address] [place] [address] 06/07/2018 10:57:08 06/08/2018 08:49:31 Type 2 diabetes mellitus 65773038 E11.69 reviewed her glucometer readings for last month. Increase lantus to 18u at bedtime, cont to follow w/ nutritioni st to manage diet better. cont glipizide 10mg QAM and 5mg QPM Cough 52346533 R05 improved lung sounds on exam today after completing short course of steroids; try mucinex & cont to drink plenty of water. Use nebulizer at least once a day when she is having her worst coughing spasms Diabetic p eripheral neuropathy 460805709 E11.40 Worse lately, cont to drink water and increase nighttime gabapentin to 600mg. [id number] PAULINO Saunders (Adult Med) [address] [place] [address] 08/21/2018 11:09:19 08/21/2018 13:37:18 Type 2 diabetes mellitus 03686084 E11.69 saw endocrinol ogy, increased lantus, decreased glipizide. reviewed diet and how DM contribute s to pancreatit is. Recurrent pancreatitis 981199886 K86.1 This is her 5th episode, she had reaction to Invokana and MTX in past. discussed w/ patient possible DM cause vs. autoimmune etiology vs. idiopathic . She is very scared of dying from it, son from this possibly linked to depakote use. Start pancreatic enzymes, see GI specialist . Advised on low fat diet, reduce sugars, carbs. drink plenty of fluids. [id number] PAULINO Saunders (Adult Med) [address] [place] [address] 11/20/2018 11:48:05 11/21/2018 08:39:54 Rheumatoid arthritis 58265288 M06.9 will see Rheum in Dec, on [...] and prevent falls/inju ry. Chronic pancreatitis 235 217323 K86.1 multiple factors including DM, RA, medication s, HLD with elevated triglyceri lane (300s last checked here i n Dec). to get ERCP at [place] soon. cont to f/u with GI for colonoscop y as well. Fibromyalgia 201286739 M 79.7 felt better when she was on Lyrica, but insurance didn't cover it last year, too expensive out of pocket. Will try w/ new insurance. She also has rheum f/u in Dec. Tobacco user 921822484 Z 72.0 Cont Chantix, cont to try and wean down cigarettes . [id number] Eliz Enriquez (SEAFOOD PROCESS WORKER) [address] [place] [address] 12/03/2018 10:25:24 12/04/2018 11:20:38 Gynecologic examination 86008729 Z01.411 Last pap done 09/15/16 was negative QNS for hr-HPV. Therefore, no pap needed. Screening for malignant neoplasm of breast 757984907 Z12.31 Last 2016. Mammogram ordered. Screening for malignant neoplasm of colon 146635266 Z12.11 Last 2009. Was supposed to have 5 year repeat in 2014. Saw Dr. Carter at [place]. Referral sent to Dr. Carter Type 2 sanjuana betes mellitus 76733169 E11.9 [id number] Eliz Enriquez (SEAFOOD PROCESS WORKER) [address] [place] [address] 03/03/2020 08:16:43 03/05/2020 11:02:01 Urinary incontinence 727644132 R32 Pt. with c/o worsening urinary incontinen [...] Borrero Member ID Guarantor Name 06/07/[address] [facility] (MEDICARE REPLACEMENT/ ADVANTAGE - HMO) [id number] Keyla Cotog [id number] Keyla Arreaga 06/07/2018 1 [employer] [facility] (O) [id number] Mike Cotog [id number] 0001 Keyla iLuigg 08/21/[address] [facility] (MEDICARE REPLACEMENT/ ADVANTAGE - HMO) [id number] Keyla Cotog [id number] Keyla Sena Whitley 08/21/2018 1 [employer] [facility] (PPO) [id number] Mike Cotog [id number] 0001 Keyla Sena Whitley 11/20/[address] [facility] (MEDICARE REPLACEMENT/ ADVANTAGE - HMO) [id number] Keyla Cotog [id number] Keyla Liuigg 11/20/2018 1 [employer] [facility] (PPO) [id number] Mike Arreaga [id number] 0001 Keyla Liuigg 12/03/[address] [facility] (MEDICARE REPLACEMENT/ ADVANTAGE - HMO) [id number] Keyla Cotog [id number] [facility] 12/03/2018 1 [employer] [facility] (PPO) [id number] Mike Cotog [id number] 0001 Keyla Liuigg 03/03/[address] [facility] (MEDICARE REPLACEMENT/ ADVANTAGE - HMO) [id number] Keyla Cotog [id number] Keyla Liuigg 03/03/2020 1 [employer] [facility] (O) [id number] Mike Cotog [id number] 0001 [facility] Notes Date Note Type Note Provider Name [...] less fatigued. has quit all regular soda, aviation boatswain's mate said ok to drink diet Dr. Dacosta. but pt limiting it to 2 a day and rest of day drinking at least 3 8oz glasses of water. has appt w/ tree tapping laborer in June.Cont to be tobacco free. doesn't drink much alcohol but craving beer, will check w/ tree tapping laborer to see if that is ok. still has cough, but not as bad, not able to cough up mucous, feels it gets stuck in throat. no more wheezing, not using nebulizer every day Radha Lynch PA-C Attn: Accounting,[address] [facility], [place], [address], [facility] ([facility]) 06/07/2018 13:23:33 9 text/html Diabetes F/UReported bypatient.Context:checkin [...] it. Radha Lynch PA-C Attn: Accounting,[address] [facility], [place], [address], [facility] ([facility]) 11/28/2018 14:19:52 9 text/html Diabetes F/UReported bypatient.Labs:last [...] xeljans for about a year since her grain mill worker left area, but now Dr. Craft [place] back [place] cane for ambulation; no falls tobacco still smoking and using Chantix, down to 1/2 ppd or less. right knee surgery postponed until Dec ortho f/u. Radha Lynch PA-C Attn: Accounting,[address] [place], [address], [facility] 11/20/2018 13:11:21 9 text/html Annual GYNReported bypatient.Menstrual [...] colonoscopy (Pt to call Dr. Carter, her cashier greeter.) Eliz cardenas [facility] 12/03/2018 11:53:17 0 text/html Telephone visit due to COVID-19 pandemic. Pt. with c/o urinary incontinence that is getting progressively worse. She is using 2-3 pads daily and they are irritating her. She now wants a pessary. Eliz cardenas [facility] 03/03/2020 09:42:32 OBGyn Episode Ob Episode Information Episode Created Date Number of Fetuses Patient Bloodtype Patient rh Status Prepregnancy Weight lbs Domestic Partner Domestic Partner Phone Father Name [employer] Status 11/16/19 17 1 CLOSED Fetus Data First Name Last Name Admitted to NICU Weight (g) Sex Living Outcome Pediatric Complications Fetus ID Race Codes Race Delivery Type 1814.36 8 M Full Term [id number] Vaginal Ashish Calculation Initial Ashish Date Initial [...] Domestic Partner Domestic Partner Phone Father Name [employer] Status 11/16/19 17 1 CLOSED Fetus Data First Name Last Name Admitted to NICU Weight (g) Sex Living Outcome Pediatric Complications Fetus ID Race Codes Race Delivery Type 2636.27 6704 M Full Term [id number] Vaginal Ashish Calculation Initial Ashish Date Initial [...]
--- OUTSIDE RECORDS SUMMARY | 2024-07-28 09:23 | XMS_ITS | Clinical Summary ---
Author Organization [facility] Address [address] [facility], [place] [address] Phone Care Team Providers Care Shape Carver Name Role Phone Joseph Sweet MD Primary Care Provider [phone] Kenneth Ward DPM Unavailable [phone] Hermann Olivia DO Unavailable [phone] Naida Odonnell MD Unavailable Allergies Active [...] complete this topic Insurance MEDICARE Care Teams Shape Carver Relationship Specialty Start Date End Date Joseph Sweet MD [address] [place] [address] PCP - General Family Medicine 06/12/15 Kenneth Ward DPM [address] [place] [address] Podiatry 06/12/15 Herm[place] [address] Gastroenterology 02/02/16 Naida Odonnell MD [address] [place] [address] Family Medicine 02/02/16
--- OUTSIDE RECORDS SUMMARY | 2024-07-28 09:23 | XMS_ITS | Clinical Summary ---
Author Organization [facility] Address [address] [place] [address] Care Team Providers Care Putty Mixer And Applier Name Role Phone Karan Ngo MD Unavailable Abdulkadir Craft MD Unavailable Carole Neal MD Unavailable [phone] Rohith Sen MD Primary Care Provider [phone] Allergies Active Allergy Reactions Criticality Noted Date [...] - 2023-2 5 season) 2023 07/31/2020, 07/10/2020 RSV Immunization or 60+ Years (1 - [...] patient's age to complete this topic Insurance [facility] Care Teams Putty Mixer And Applier Relationship Specialty Start Date End Date Rohith Sen MD [address] [place] [address] PCP - General FAMILY PRACTICE 02/03/23 Karan Ngo MD [address] [facility] [address] [place] [address] CARDIOVASCULAR DISEASE 01/29/21 [place] [address] [place] [address] Referring Physician RHEUMATOLOGY 01/29/21 Carole Neal MD [address], [address] [place] [address] PULMONARY DISEASE 01/29/21
[2024-07-28 09:29] VITALS: BP 139/78; PULSE 82; RESP 18; TEMP 36.1; O2SAT 97
[2024-07-28 09:54] VITALS: O2SAT 98
[2024-07-28 09:55] VITALS: BP 145/84; PULSE 79; RESP 21; O2SAT 98
--- NOTE | 2024-07-28 10:00 | ECG_ITS ---
Test Date: 2024-07-28 10:39:35 Measurements Intervals [place] Rate: 72 P: 64 GA: 169 QRS: 67 QRSD: 84 T: 67 QT: 372 QTc: 409 Interpretive Statements SINUS RHYTHM LOW QRS VOLTAGE IN PRECORDIAL LEADS BORDERLINE ECG No previous ECG available for comparison Electronically Signed On 07-28-2024 12:16:21 CDT by Abel Leonard D.O.
--- OUTSIDE RECORDS SUMMARY | 2024-07-28 10:05 | XMS_ITS | Clinical Summary ---
Author Organization [facility] Address [address] [facility], [place] [address] Phone Care Team Providers Care Mother Repairer Name Role Phone Joseph Sweet MD Primary Care Provider [phone] Kenneth Ward DPM Unavailable Hermann Olivia DO Unavailable [phone] Naida Odonnell MD Unavailable Allergies Active [...] complete this topic Insurance MEDICARE Care Teams Mother Repairer Relationship Specialty Start Date End Date Joseph Sweet MD [address] [place] [address] PCP - General Family Medicine 06/12/15 Kenneth Ward DPM [address] [place] [address] Podiatry 06/12/15 Herm[place] [address] Gastroenterology 02/02/16 Naida Odonnell MD [address] [place] [address] Family Medicine 02/02/16
--- OUTSIDE RECORDS SUMMARY | 2024-07-28 10:06 | XMS_ITS | Referral Summary ---
Author Organization [facility] [address] [facility] [address] Address [address] [place] [address] Care Team Providers Care Pipe Supervisor Name Role Phone Karan Ngo MD Unavailable Rohith Sen MD Primary Care Provider [phone] Encounters Date Type Department Care Team Description 05/06/2024 Telephone [facility] Cardiology [address] [place] [address] Karan Ngo MD from Last [...] 24 hr tabletIndications :Coronary artery disease of [place] artery of [place] heart with stable angina pectoris TAKE 1 [...] Problem Noted Date Diagnosed Date COPD exacerbation ([facility]) 10/10/2020 Acute on chronic respiratory failure with hypoxe brian 10/10/2020 Pancreatic cyst 03/23/2020 Type 2 diabetes mellitus wit h hyperglycemia, with long-term current use of insulin 03/16/2020 Assessment & Plan (03/16/2020 2:22 PM LOIN TRIMMER): Diagnosed in 2013- Had recurrent pancreatitis. Started [...] 03/16/2020 Assessment & Plan (03/16/2020 2:23 PM LOIN TRIMMER): Complicated with CAD Controlled with medication - [...] (11/02/2018): Added automatically from request for surgery [id number] Assessment & Plan (12/11/2018 5:10 PM CDT): [...] on file Legal Sex Female 1:49 PM LOIN TRIMMER Gender Identity Not on file Sexual Orientation [...] on file Medical Devices Implanted Type Area Mattress And Foundation Sewer Device Identifier Shelf Expiration Date Model / Serial / Lot System Coronary Stent Synergy Pebax Everolimus Eluting [place] Chromium Plga L12 Mm L144 Cm Od2.25 Mm Radiopaque 1 Access Port Inflation Lumen Accepts .014 In Guidewire - [id number] Implanted:Qty: 1 on 04/06/2017 by Karan Ngo MD at [facility] [employer] [facility] 12/19/2017 [id number] 220 / / [id number] Procedures Procedure Name Priority Date/Time Associated Diagnosis Comments POCT LIPID PANEL Routine 12/05/2023 11:2 5 AM CDT Lipid screening EGFR STAT 09/10/2021 3:31 PM CDT POCT HEMOGLOBIN A1C Routine 03/16/2020 2 :10 PM LOIN TRIMMER Type 2 diabetes mellitus with hyperglycemia, with [...] BLOOD ORDERABLES Tanika l Result A[place]IN CUELLAR ([place]) 1 [facility] Department [place] [address] * POCT hemoglobin A1c (03/16/2020 2:10 PM LOIN TRIMMER) Pathologist [facility] Hemoglobin A1C, POC 7.1 Blood specimen (specimen) 03/16/2020 2:10 PM LOIN TRIMMER Abena Ronquillo MD POINT OF CARE TEST ORDERABLES Final Result * DIABETES EYE EXAM (02/06/2019) Pathologist [facility] Diabetic Eye Exam Unknown us Historical Provider HEALTH MAINTENANCE Final Result from Last 3 Months or Most Recently Relevant to Health Maintenance Insurance [facility] MEDICARE ADVANTAGE [facility] MEDICARE ADVANTAGE Advance Directives For more information, please contact: [phone] * Full Code (Latest Code Status on File) Date Activated Date Inactivated Comments 10/10/2020 6:56 PM 10/12/2020 5:57 PM * Full Code Date Activated Date Inactivated Comments 11/30/2018 7:41 AM 11/30/2018 1:32 PM * Full Code Date Activated Date Inactivated Comments 04/06/2017 3:48 PM 04/07/2017 2:06 PM Care Teams Pipe Supervisor Relationship Specialty Start Date End Date Rohith Sen MD [address] [address] PCP - General Family Practice 12/05/23 Karan Ngo MD [address] [address] Consulting Physician Cardiology 11/02/18
--- OUTSIDE RECORDS SUMMARY | 2024-07-28 10:06 | XMS_ITS | Encounter Summary ---
Author Organization [facility] Address [address] [place] [address] Care Team Providers Care Varnisher Apprentice Name Role Phone Karan Ngo MD Unavailable Abdulkadir Craft MD Unavailable Carole Neal MD Unavailable [phone] Rohith Sen MD Primary Care Provider [phone] Encounter Details Date Type Department Care Team (Late st Contact Info) Description 01/30/[address] [facility] [place] [id number] Maximo Jones MD [address] [facility] [place], [place] [id number] Social History Tobacco Use Types Packs/Day Years [...] Arthritis RA, osteoarthritis, psoriatric arthritis ??? Cancer ([facility]) leukemia as a child ??? Colitis ??? COPD (chronic obstructive pulmonary disease) ([facility]) ??? Coronary artery disease ??? 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 Diabetes mellitus ([facility]) ??? Diverticulitis ??? Emphysema lung ([facility]) ??? MVP (mitral valve prolapse) ??? Neuropathy feet ??? On supplemental oxygen by nasal cannula 4L O2 PRN ??? Seizure ([facility]) patient unsure about this ??? Stroke ([facility]) possible TIA? Allergies: Allergies Allergen Reactions ??? [...] on filedocumented in this encounter Care Teams Varnisher Apprentice Relationship Specialty Start Date End Date Rohith Sen MD [address] [place] [id number] PCP - General FAMILY PRACTICE 02/03/23 Karan Ngo MD [address] [facility] [address] [place] [address] CARDIOVASCULAR DISEASE 01/29/21 [place] [address] [place] [address] Referring Physician RHEUMATOLOGY 01/29/21 Carole Neal MD [address] [place] [address] PULMONARY DISEASE 01/29/21 documented as of this encounter
--- OUTSIDE RECORDS SUMMARY | 2024-07-28 10:06 | XMS_ITS | Clinical Summary ---
Author Organization [facility] [address] [facility] [address] Address [address] [place] [address] Care Team Providers Care Transportation Escort Name Role Phone Karan Ngo MD Unavailable Rohith Sen MD Primary Care Provider [phone] Allergies Active Allergy Reactions Criticality Noted Date [...] 24 hr tabletIndications :Coronary artery disease of [place] artery of [place] heart with stable angina pectoris TAKE 1 [...] 03/16/2020 Assessment & Plan (03/16/2020 2:22 PM VETERINARY SCIENCE TEACHER): Diagnosed in 2013- Had recurrent pancreatitis. Started [...] 03/16/2020 Assessment & Plan (03/16/2020 2:23 PM VETERINARY SCIENCE TEACHER): Complicated with CAD Controlled with medication - [...] (11/02/2018): Added automatically from request for surgery [id number] Assessment & Plan (12/11/2018 5:10 PM CDT): [...] Type Department Care Team Description 05/06/2024 Telephone [facility] Cardiology [address] [place] [address] Karan Ngo MD from Last [...] on file Legal Sex Female 1:49 PM VETERINARY SCIENCE TEACHER Gender Identity Not on file Sexual Orientation [...] history exists Medical Devices Implanted Type Area Pre Sales Technical Engineer Device Identifier Shelf Expiration Date Model / Serial / Lot System Coronary Stent Synergy Pebax Everolimus Eluting [place] Chromium Plga L12 Mm L144 Cm Od2.25 Mm Radiopaque 1 Access Port Inflation Lumen Accepts .014 In Guidewire - [id number] Implanted:Qty: 1 on 04/06/2017 by Karan Ngo MD at [facility] 12/19/2017 [id number] 220 / / [id number] Procedures Procedure Name Priority Date/Time Associated Diagnosis Comments POCT LIPID PANEL Routine 12/05/2023 11:2 5 AM CDT Lipid screening EGFR STAT 09/10/2021 3:31 PM CDT POCT HEMOGLOBIN A1C Routine 03/16/2020 2 :10 PM VETERINARY SCIENCE TEACHER Type 2 diabetes mellitus with hyperglycemia, with [...] BLOOD ORDERABLES Tanika l Result [place]IN CUELLAR ([place]) 1 [facility] [place] [address] * POCT hemoglobin A1c (03/16/2020 2:10 PM VETERINARY SCIENCE TEACHER) Hemoglobin A1C, POC 7.1 Blood specimen (specimen) 03/16/2020 2:10 PM VETERINARY SCIENCE TEACHER us Abena Ronquillo MD POINT OF CARE TEST ORDERABLES Final Result * DIABETES EYE EXAM (02/06/2019) Diabetic Eye Exam Unknown us Historical Provider HEALTH MAINTENANCE Final Result from Last 3 Months or Most Recently Relevant to Health Maintenance Insurance [facility] MEDICARE Address: [address] [address] [facility] MEDICARE Address: [address] [address] [place] [address] [facility] MEDICARE ADVANTAGE [facility] MEDICARE Address: [address] [address] [place] [address] Advance Directives For more information, please contact: [phone] * Full Code (Latest Code Status on File) Date Activated Date Inactivated Comments 10/10/2020 6:56 PM 10/12/2020 5:57 PM * Full Code Date Activated Date Inactivated Comments 11/30/2018 7:41 AM 11/30/2018 1:32 PM * Full Code Date Activated Date Inactivated Comments 04/06/2017 3:48 PM 04/07/2017 2:06 PM Care Teams Transportation Escort Relationship Specialty Start Date End Date Rohith Sen MD [address] [address] PCP - General Family Practice 12/05/23 Karan Ngo MD [address] [address] Consulting Physician Cardiology 11/02/18
--- OUTSIDE RECORDS SUMMARY | 2024-07-28 10:06 | XMS_ITS | Clinical Summary ---
Author Organization [facility] Address [address] [place] [address] Care Team Providers Care Salvage Repairer Name Role Phone Karan Ngo MD Unavailable Abdulkadir Craft MD Unavailable Carole Neal MD Unavailable [phone] Rohith Sen MD Primary Care Provider [phone] Allergies Active Allergy Reactions Criticality Noted Date [...] patient's age to complete this topic [facility] Care Teams Salvage Repairer Relationship Specialty Start Date End Date Rohith Sen MD [address] [place] [address] PCP - General FAMILY PRACTICE 02/03/23 Karan Ngo MD [address] [facility] [address] [place] [address] CARDIOVASCULAR DISEASE 01/29/21 [place] [address] [place] [address] Referring Physician RHEUMATOLOGY 01/29/21 Carole Neal MD [address] [place] [address] PULMONARY DISEASE 01/29/21
--- OUTSIDE RECORDS SUMMARY | 2024-07-28 10:06 | XMS_ITS | Encounter Summary ---
Author Organization [facility] Address [address] [place] [address] Care Team Providers Care Reach Lift Truck Driver Name Role Phone Karan Ngo MD Unavailable Abdulkadir Craft MD Unavailable Carole Neal MD Unavailable [phone] Rohith Sen MD Primary Care Provider [phone] Encounter Details Date Type Department Care Team (Late st Contact Info) Description 11/17/2015 Abstract [facility] CONVERSION [address] [place], [place] [id number] , Olinda Polo MD Social History Tobacco [...] on filedocumented in this encounter Care Teams Reach Lift Truck Driver Relationship Specialty Start Date End Date Rohith Sen MD [address] [place] [address] PCP - General FAMILY PRACTICE 02/03/23 Karan Ngo MD [address] [address] CARDIOVASCULAR DISEASE 01/29/21 [place] [address] [place] [address] Referring Physician RHEUMATOLOGY 01/29/21 Carole Neal MD [address] [place] [address] PULMONARY DISEASE 01/29/21 documented as of this encounter
--- OUTSIDE RECORDS SUMMARY | 2024-07-28 10:06 | XMS_ITS | Encounter Summary ---
Author Organization [facility] Address [address] [place] [address] Phone Care Team Providers Care Sales And Service Associate Name Role Phone Karan Ngo MD Unavailable Gin Wilson MD Primary Care Provider Gin Wilson MD Primary Care Provider Rohith Sen MD Primary Care Provider [phone] Encounter Details Date Type Department Care Team [...] on file Legal Sex Female 1:49 PM DELINQUENT TAX COLLECTION ASSISTANT Gender Identity Not on file Sexual Orientation [...] CDT COVID19 02/19/2021 02/19/2021 03/05/2021 3:05 AM DELINQUENT TAX COLLECTION ASSISTANT COVID: Recovered Comment:Added based on recent COVID infection. 03/05/2021 06/08/2021 07/03/2021 3:[address] documented as of this encounter Care Teams Sales And Service Associate Relationship Specialty Start Date End Date Gin Wilson MD [address] [place] [address] PCP - General Family Practice 06/19/19 01/31/21 Gin Wilson MD [address] [place] [address] PCP - General Family Practice 02/01/21 12/04/23 Rohith Sen MD [address] [place] [address] PCP - General Family Practice 12/05/23 Karan Ngo MD [address] [place] [address] Consulting Physician Cardiology 11/02/18 documented as of this encounter
[2024-07-28 10:30] VITALS: BP 122/79; PULSE 77; RESP 16; O2SAT 97
[2024-07-28 10:33] LABS: Fractional Inspired Oxygen 21 %; HCO3 VBG 28.6 mEq/l (24.0-30.0); PCO2 VBG 52.7 mmHg (42.0-48.0); pH VBG 7.352 (7.300-7.400)
[2024-07-28 10:35] LABS: Basophils Percent Auto 0.2 % (0.2-1.2); Eosinophils Absolute Auto 0.1 K/mm3 (0-0.3); Eosinophils Percent Auto 1.6 % (0-4.4); Hematocrit 42.7 % (37.0-47.0); Hemoglobin 13.6 g/dL (12.0-15.0); Immature Granulocyte Absolute 0.01 K/mm3 (0.00-0.031); Immature Granulocyte Percent A 0.2 % (0-0.5); Lymphocytes Absolute Auto 1.01 K/mm3 (0.9-3.2); Lymphocytes Percent Auto 23.2 % (18.3-44.2); Mean Corpuscular HGB Conc 31.9 g/dl (32-36); Mean Corpuscular Hemoglobin 29.7 pg (26-34); Mean Corpuscular Volume 93.2 fl (80-100); Mean Platelet Volume 10.2 fl (7.4-10.4); Monocytes Absolute Auto 0.5 K/mm3 (0.1-0.6); Monocytes Percent Auto 10.6 % (2.6-8.5); Neutrophils Absolute Auto 2.8 K/mm3 (1.3-6.7); Neutrophils Percent Auto 64.2 % (45.5-73.1); Platelet Count Result 188 k/mm3 (150-375); Red Blood Count 4.58 M/mm3 (4.2-5.4); Red Cell Distribution Width 13.9 % (11.5-14.5); White Blood Count 4.4 K/mm3 (4.5-10.0)
[2024-07-28 10:37] LABS: Device ROOM AIR; PO2 VBG < 27.0 mmHg (35.0-45.0)
[2024-07-28 10:48] LABS: Alanine Aminotransferase 31 U/L (6-35); Albumin Level 4.5 g/dL (3.5-5.1); Alkaline Phosphatase 109 U/L (38-126); Anion Gap 11 mmol/L (4-12); Aspartate Amino Transferase 35 U/L (14-36); Bilirubin,Total 0.4 mg/dL (0.2-1.3); Blood Urea Nitrogen 12 mg/dL (7-17); Calcium 9.5 mg/dL (8.4-10.2); Carbon Dioxide 28 mmol/L (22-30); Chloride 104 mmol/L (98-107); Estimated CRCL calculation 54 ml/min; Estimated Glomerular Filt Rate > 60; Glucose 139 mg/dL (65-110); Potassium 4.1 mmol/L (3.4-5.0); Sodium 143 mmol/L (137-145)
[2024-07-28 11:00] LABS: NT Pro B Type Natriuretic Pept 187 pg/mL (19.9-100); Troponin I < 0.012 ng/mL (0.000-0.034)
[2024-07-28 11:11] LABS: Influenza A QL RT-PCR Negative (Negative); Influenza B QL RT-PCR Negative (Negative); RSV RNA, RT-PCR Negative (Negative); SARS-CoV-2 RNA PCR Negative (Negative)
--- NOTE | 2024-07-28 12:08 | ED.SOB ---
HPI - SOB/Dyspnea General Chief Complaint: Shortness of Breath/Dyspnea Stated Complaint: SOB, cough Time Seen by Provider: 07/28/24 09:59 Source: patient Mode of arrival: ambulatory Limitations: no limitations History of Present Illness HPI Narrative: 68-year-old with a history of COPD, home oxygen on needed basis presents to the ER with a complains of cough which is nonproductive, mild shortness of breath for past 3-4 days. She denies any fever or chills. Denies any chest pain. Pertinent past history: COPD Timing: intermittent Severity: moderate Exacerbating factors: nothing Relieving factors: nothing Known history of: COPD Associated symptoms: cough Related Data Home Medications ?Medication ?Instructions ?Recorded ?Confirmed ?Last Taken ?Type aspirin 81 mg tablet,delayed 81 mg PO DAILY 10/29/19 03/28/24 02/17/20 History release (Adult Low Dose Aspirin) acetaminophen 650 mg 650 mg PO Q12H 08/09/23 03/28/24 Unknown History tablet,extended release glimepiride 2 mg tablet 2 mg PO BID 08/09/23 03/28/24 Unknown History isosorbide mononitrate 60 mg 60 mg PO DAILY 08/09/23 03/28/24 Unknown History tablet,extended release 24 hr lisinopril 5 mg tablet 5 mg PO DAILY 08/09/23 03/28/24 Unknown History rosuvastatin 40 mg tablet 40 mg PO HS 08/09/23 03/28/24 Unknown History insulin glargine 100 unit/mL (3 55 unit subcut .COMPLEX 01/08/24 03/28/24 Unknown History mL) subcutaneous pen (Lantus Solostar U-100 Insulin) clopidogrel 75 mg tablet 75 mg PO DAILY 01/17/24 03/28/24 Unknown History etanercept 50 mg/mL (1 mL) 50 mg subcut WEEKLY 01/17/24 03/28/24 Unknown History subcutaneous pen injector (Enbrel SureClick) Allergies Allergy/AdvReac Type Severity Reaction Status Date / Time canagliflozin Allergy Severe PANCREATITI Verified 07/28/24 09:56 S meperidine Allergy Severe TONGUE Verified 07/28/24 09:56 SWELLING/HIVES methotrexate Allergy Severe PANCREATITI Verified 07/28/24 09:56 S metformin AdvReac Diarrhea Verified 07/28/24 09:56 Review of Systems Review of Systems: All systems reviewed & are unremarkable except as noted in HPI and below Constitutional: Constitutional: Reports no additional constitutional complaints Eyes: Eyes: Reports no additional eye complaints ENT: Reports system reviewed and no additional complaints, except as documented Cardiovascular: Cardiovascular: Reports no additional cardiovascular complaints Respiratory: Respiratory: Reports as per HPI Gastrointestinal: Gastrointestinal: Reports no additional gastrointestinal complaints Musculoskeletal: Musculoskeletal: Reports no additional musculoskeletal complaints [facility] Past Medical History Medical History Choking due to food in larynx Oropharyngeal dysphagia Systemic lupus Skin cancer Angina at rest Abdominal aortic aneurysm (AAA) without rupture CAD in [place] artery Dyslipidemia Rheumatoid arthritis Obstructive sleep apnea Cholecystitis, acute Fatty liver disease, nonalcoholic History of chemotherapy Osteoporosis Arthritis Fibromyalgia Kidney stones GERD (gastroesophageal reflux disease) Hemorrhoids Irritable bowel syndrome Rectal polyp Pancreatitis Ulcer Diverticulitis Sleep apnea COPD (chronic obstructive pulmonary disease) Coronary artery disease Mitral valve prolapse Peripheral neuropathy Edmonds's palsy Surgical History Surgical History History of incisional hernia repair History of coronary artery stent placement 01/2018 and 04/2016 History of cholecystectomy H/O cardiac catheterization with 4 cardiac stents Cataracts, bilateral Family History Family History Father Family history of emphysema Other Cerebrovascular accident Diabetes mellitus Family history of cardiovascular disease Family history of coronary artery disease Family history of heart disease in male family member before age 55 Family history of lupus erythematosus Family history of osteoarthritis Family history of rheumatoid arthritis Family history of tuberculosis Hypertension Social History Social History Social History: started age 16, up at most 3 ppd; quit totally 2 years ago in Apr; restarted after of a niece and 2 brothers, now smokes less about half pack/day. Smoking packs per day: 1 Smoking cigarettes per day: 20.0 Years smoked: 51 Smoking pack-years: 51.00 Smoking status: Former smoker Tobacco type: cigarettes Second hand tobacco smoke exposure: No Smoking end date: 12/13/23 Additional smoking assessment comments: started age 16, Alcohol intake: never Substance use: never Substance use type: marijuana Lack of Transportation: No Lack of Food: Sometimes True Current Housing: I Do Not Have Housing Concerned About Future Housing: No Difficulty Paying Gas/Electric Bills: No Difficulty Paying for Meds: No Currently Unemployed: No Education: High School Diploma/GED Difficulty w/ Childcare or Family Care: No Living arrangements: with family Additional living arrangements comments: with , cat Elisa and a dog; cat plays hard, scratches Occupation/Education: retired Additional occupation/education comments: 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 HEAD: Normocephalic, atraumatic. EYES: PERRLA and EOMI. ENT: Nares clear, no rhinorrhea or epistaxis. Mucous membranes moist. NECK: Supple. CHEST: Mild bilateral wheeze . No respiratory distress. HEART: Regular rate and rhythm. No murmur heard. Normal peripheral pulses. ABDOMEN: Soft, nontender, nondistended, normal active bowel sounds. EXTREMITIES: Normal range of motion. No edema. SKIN: Warm, dry, no rash. NEURO: No focal deficits. Alert and oriented x3. PSYCH: Normal mood and affect. Course Course Emergency Course: Notified patient about her lab work, chest x-ray and findings. Advised her to cut down her smoking take steroids as prescribed continue a home neb treatment. Follow with the primary doctor Vital Signs Vital signs: Vital Signs Temperature 36.1 C L 07/28/24 09:29 Pulse Rate 82 07/28/24 09:29 Respiratory Rate 18 07/28/24 09:29 Blood Pressure 139/78 07/28/24 09:29 Pulse Oximetry 97 07/28/24 09:29 Oxygen Delivery Room Air 07/28/24 09:29 Temperature 36.1 C L 07/28/24 09:29 Pulse Rate 77 07/28/24 10:30 Respiratory Rate 16 07/28/24 10:30 Blood Pressure 122/79 07/28/24 10:30 Pulse Oximetry 97 07/28/24 10:30 Oxygen Delivery Room Air 07/28/24 09:54 MDM - SOB/Dyspnea Differential Diagnosis Differential diagnosis: Likely acute exacerbation of chronic obstructive airways disease, community acquired pneumonia and asthma with exacerbation Medical Records Attestation: I reviewed the patient's medical records. Lab Data Attestation: I reviewed the patient's lab results. 07/28/24 10:28 07/28/24 10:28 Labs: Lab Results 07/28/24 Range/Units 10:28 WBC 4.4 L (4.5-10.0) K/mm3 RBC 4.58 (4.2-5.4) M/mm3 Hgb 13.6 (12.0-15.0) g/dL Hct 42.7 (37.0-47.0) % MCV 93.2 (80-100) fl MCH 29.7 (26-34) pg MCHC 31.9 L (32-36) g/dl RDW 13.9 (11.5-14.5) % Plt Count 188 (150-375) k/mm3 MPV 10.2 (7.4-10.4) fl Immature Gran % (Auto) 0.2 (0-0.5) % Neut % (Auto) 64.2 (45.5-73.1) % Lymph % (Auto) 23.2 (18.3-44.2) % Becker % (Auto) 10.6 H (2.6-8.5) % Eos % (Auto) 1.6 (0-4.4) % Baso % (Auto) 0.2 (0.2-1.2) % Lymph # (Auto) 1.01 (0.9-3.2) K/mm3 Becker # (Auto) 0.5 (0.1-0.6) K/mm3 Eos # (Auto) 0.1 (0-0.3) K/mm3 Baso # (Auto) 0.0 (0.0-0.1) K/mm3 Abs Immat Gran (auto) 0.01 (0.00-0.031) K/mm3 Absolute Neuts (auto) 2.8 (1.3-6.7) K/mm3 Absolute Nucleated RBC 0.000 (0.0-0.012) K/mm3 Nucleated RBC % 0.0 (0.0-0.2) % PT 13.0 (11.1-14.7) Seconds INR 1.0 Sodium 143 (137-145) mmol/L Potassium 4.1 (3.4-5.0) mmol/L Chloride 104 (98-107) mmol/L Carbon Dioxide 28 (22-30) mmol/L Anion Gap 11 (4-12) mmol/L BUN 12 D (7-17) mg/dL Creatinine 0.92 (0.7-1.0) mg/dL Estim Creat Clear Calc 54 ml/min Estimated GFR > 60 (59 - ) Glucose 139 H (65-110) mg/dL Calcium 9.5 (8.4-10.2) mg/dL Total Bilirubin 0.4 (0.2-1.3) mg/dL AST 35 (14-36) U/L ALT 31 (6-35) U/L Alkaline Phosphatase 109 (38-126) U/L Troponin I < 0.012 (0.000-0.034) ng/mL NT-Pro-B Natriuret Pep 187 H (19.9-100) pg/mL Total Protein 8.0 (6.3-8.2) g/dL Albumin 4.5 (3.5-5.1) g/dL Influenza A (RT-PCR) Negative (Negative) Influenza B (RT-PCR) Negative (Negative) RSV (RT-PCR) Negative (Negative) SARS-CoV-2 RNA (RT-PCR) Negative (Negative) ABG Data ABG results: 07/28/24 10:26 VBG pH 7.352 VBG pCO2 52.7 H VBG pO2 < 27.0 L VBG HCO3 28.6 O2 Delivery Device Room air O2 Liters/Min Not Reportable FiO2 21 Imaging Data Radiologist's impression: ITS Impressions Chest X-Ray 07/28/24 10:38 IMPRESSION: No acute cardiopulmonary pathology. ECG Data EKG #1: ECG completion date: 07/28/24 ECG completion time: 10:39 EKG Interpretation: normal rate (72), sinus rhythm, no ectopy, no ST changes, normal QRS and normal QT Discharge Plan Discharge Clinical Impression: COPD (chronic obstructive pulmonary disease) Qualifiers: COPD type: COPD with acute lower respiratory infection Qualified Code(s): J44.0 - Chronic obstructive pulmonary disease with (acute) lower respiratory infection Patient Disposition: Home, Self-Care Condition: Stable Instructions: Antibiotic Form, COPD (Chronic Obstructive Pulmonary Disease) (DC) Additional Instructions: Continue home medication including any treatment. Take steroids as prescribed which will increase your blood sugars to be watchful with your diet may have to take extra insulin. Patient Language: Tajik Prescriptions: New prednisone 20 mg tablet 20 mg PO BID Qty: 10 0RF doxycycline hyclate 100 mg tablet 100 mg PO BID Qty: 14 0RF No Action (DME) FreeStyle Uday 2 [place] Misc See Rx Instructions .Route Qty: 1 0RF Rx Instructions: As directed carvedilol 3.125 mg tablet 3.125 mg PO BID Qty: 180 3RF clopidogrel 75 mg tablet 75 mg PO DAILY Enbrel SureClick 50 mg/mL (1 mL) pen injector 50 mg subcut WEEKLY albuterol sulfate 90 mcg/actuation HFA aerosol inhaler 1 - 2 puff inhalation Q4-6H PRN (Reason: shortness of breath or wheezing) Qty: 8.5 2RF Breztri Aerosphere 160-9-4.8 mcg/actuation HFA aerosol inhaler 2 inh inhalation BID Qty: 10.7 5RF Rx Instructions: Rinse mouth and spit after each use. insulin glargine [Lantus Solostar U-100 Insulin] 100 unit/mL (3 mL) insulin pen 55 unit subcut .COMPLEX Rx Instructions: 40 units in the morning and 55 units at night; (DME) FreeStyle Uday 2 Sensor Kit See Rx Instructions .Route Qty: 6 5RF Rx Instructions: As directed nicotine 21 mg/24 hr patch 24 hour 1 patch transdermal DAILY Qty: 28 1RF aspirin [Adult Low Dose Aspirin] 81 mg tablet,delayed release (DR/EC) 81 mg PO DAILY (DME) blood-glucose meter [OneTouch Ultra2 Meter] Kit See Rx Instructions .Route Qty: 1 0RF Rx Instructions: use daily (DME) pen needle, diabetic [Comfort EZ Pen Joaquin] 32 gauge x 1/4 needle See Rx Instructions .Route Qty: 50 5RF Rx Instructions: use daily furosemide [Lasix] 20 mg tablet 20 mg PO QAM PRN (Reason: edema) Qty: 30 0RF tramadol 50 mg tablet 50 mg PO BID PRN (Reason: pain) Qty: 60 1RF colestipol 1 gram tablet 1 g PO BID Qty: 60 3RF sulfamethoxazole-trimethoprim 800-160 mg tablet 1 tablet PO Q12H 14 Days Qty: 28 0RF hydrocodone-acetaminophen 5-325 mg tablet 1 tablet PO Q12H PRN (Reason: pain, severe) Qty: 8 0RF glimepiride 2 mg Tablet 2 mg PO BID acetaminophen [Tylenol Arthritis] 650 mg Tablet Extended Release 650 mg PO Q12H isosorbide mononitrate 60 mg tablet extended release 24 hr 60 mg PO DAILY lisinopril 5 mg Tablet 5 mg PO DAILY rosuvastatin 40 mg tablet 40 mg PO HS nitroglycerin 0.4 mg tablet, sublingual 0.4 mg SUBLINGUAL Q5M PRN (Reason: Chest Pain) Qty: 30 1RF Rx Instructions: may repeat every 5 minutes up to 3 doses. (DME) OneTouch Ultra Test Strip See Rx Instructions .Route Qty: 100 1RF Rx Instructions: Check blood sugar daily (DME) insulin syringe-needle U-100 [BD Insulin Syringe] 0.3 mL 29 gauge x 1/2 syringe See Rx Instructions .Route Qty: 10 1RF Rx Instructions: As directed with humalog ferrous sulfate 325 mg (65 mg iron) tablet See Rx Instructions .ROUTE .COMPLEX Qty: 90 1RF Dose Instruction: TAKE 1 TABLET EACH MORNING ON AN EMPTY STOMACH. Rx Instructions: TAKE 1 TABLET EACH MORNING ON AN EMPTY STOMACH. insulin lispro [Humalog KwikPen Insulin] 100 unit/mL insulin pen See Rx Instructions subcut USEASDIRECTD Qty: 3 6RF Rx Instructions: Inject 5 units prior to meals if blood sugar > 150 subcutaneously use as directed; albuterol sulfate 2.5 mg/0.5 mL solution for nebulization 2.5 mg inhalation Q6H PRN (Reason: shortness of breath or wheezing) Qty: 90 3RF hydrocodone-acetaminophen 5-325 mg tablet 1 tablet PO Q12H PRN (Reason: pain) Qty: 30 0RF albuterol sulfate 2.5 mg /3 mL (0.083 %) solution for nebulization 2.5 mg inhalation Q4-6H PRN (Reason: shortness of breath or wheezing) Qty: 180 3RF fluconazole 150 mg tablet 150 mg PO ONCE Qty: 1 0RF Rx Instructions: as a single dose cholecalciferol (vitamin D3) 1,250 mcg (50,000 unit) capsule See Rx Instructions .ROUTE .COMPLEX Qty: 12 7RF Dose Instruction: TAKE 1 CAPSULE BY MOUTH ONCE WEEKLY Rx Instructions: TAKE 1 CAPSULE BY MOUTH ONCE WEEKLY Follow-up/Referrals: Beatriz Cuevas APRN [Primary Care Provider] - Time of Disposition: 12:14
[2024-07-28 12:16] VITALS: BP 132/89; PULSE 82; RESP 18; O2SAT 96
== END 2024-07-28 12:44 | disposition home or self-care (01) ==
PROVIDERS: Emergency Provider Family Medicine; PCP Nurse Practitioner Adult Health
DX: J44.0 Chronic obstructive pulmonary disease with (acute) lower respiratory infection (principal); Z20.822 Contact with and (suspected) exposure to COVID-19; I25.10 Atherosclerotic heart disease of native coronary artery without angina pectoris; I34.1 Nonrheumatic mitral (valve) prolapse; E78.5 Hyperlipidemia, unspecified; M32.9 Systemic lupus erythematosus, unspecified; M06.9 Rheumatoid arthritis, unspecified; M19.90 Unspecified osteoarthritis, unspecified site; M81.0 Age-related osteoporosis without current pathological fracture; K21.9 Gastro-esophageal reflux disease without esophagitis; K58.9 Irritable bowel syndrome, unspecified; G47.33 Obstructive sleep apnea (adult) (pediatric); G62.9 Polyneuropathy, unspecified; F17.210 Nicotine dependence, cigarettes, uncomplicated; Z99.81 Dependence on supplemental oxygen; Z95.5 Presence of coronary angioplasty implant and graft; Z92.21 Personal history of antineoplastic chemotherapy; Z85.828 Personal history of other malignant neoplasm of skin; Z86.0100 Personal history of colon polyps, unspecified; Z87.442 Personal history of urinary calculi; Z98.41 Cataract extraction status, right eye; Z98.42 Cataract extraction status, left eye; Z90.49 Acquired absence of other specified parts of digestive tract; Z79.84 Long term (current) use of oral hypoglycemic drugs; Z79.4 Long term (current) use of insulin; Z79.82 Long term (current) use of aspirin; Z79.899 Other long term (current) drug therapy; Z79.02 Long term (current) use of antithrombotics/antiplatelets
CPT/HCPCS: 36415; 36600; 71045; 80053; 82803; 83880; 84484; 85025; 85610; 87637; 93005; 99284

== ENCOUNTER 2024-09-09 14:16 | Outpatient (CLI) | payer MEDICARE, SELFPAY ==
--- OUTSIDE RECORDS SUMMARY | 2024-09-09 14:19 | XMS_ITS | Clinical Summary ---
Author Organization [facility] Address [address] [facility] [place] [address] Phone Care Team Providers Care Echocardiologist Name Role Phone Joseph Sweet MD Primary Care Provider [phone] Kenneth Ward DPM Unavailable [phone] Hermann Olivia DO Unavailable Naida Odonnell MD Unavailable Allergies Active Allergy [...] 2016 Influenza Immunization (#1) 2023 SARS-COV-2 Immunization ( season) 2023 Hepatitis B Immunization Aged Out No longer eligible based on patient's age to complete this topic Meningococcal Immunization (ACWY) Aged Out No longer eligible based on patient's age to complete this topic Rotavirus Immunization Aged Out No lo nger eligible based on patient's age to complete this topic Insurance [facility] MEDICARE Care Teams Echocardiologist Relationship Specialty Start Date End Date Joseph Sweet MD [address] [place] [address] PCP - General Family Medicine 06/12/15 Kenneth Ward DPM [address] [place] [address] Podiatry 06/12/15 Hermann Olivia DO [address] [place] [address] Gastroenterology 02/02/16 Naida Odonnell MD [address] [place] [address] Family Medicine 02/02/16
--- OUTSIDE RECORDS SUMMARY | 2024-09-09 14:19 | XMS_ITS | Data Portability ---
Author Organization [facility] Address [address] [place] [address] Care Team Providers Care Adventure Therapist Name Role Phone ELIZ GEORGE Property Management Accountant ABDULKADIR CRAFT OTHER RADHA LYNCH Primary Care Provider MIGUEL Agudelo Surveillance Operator Assessment No assessment recorded. Plan of Treatment Reminders Order Date Submit Date Provider Last Modified By Organization Details Last Modified Time Details Appointments None recorded. Lab amylase + lipase, serum 2018 019 THERESA [facility], [address] [facility], [facility] [address], [place], [address], 9 06:37:29 CMP, serum or plasma 2018 019 [facility]ER[facility]A [facility], [address] [facility], [facility], [place], [address], 9 06:37:29 erythrocy te sedimenta tion rate by arturo n method 2018 019 [facility]ER[facility]A [facility], [address] [facility], [facility], [place], [address], 9 06:37:30 Referral diabetic ophthalmo logy referral 2018 019 [email or web address] [facility], [address], [place], [address], 9 09:48:59 gastroent erologist referral 2018 019 [email or web address] Not available 9 17:41:39 gastroent erologist referral - Please call pt to schedule appointme nt, Thank you 2018 019 THERESA Abby Munoz, [address], [place], [address], 9 13:40:42 Procedures None recorded. Surgeries None recorded. Imaging MAMMO, screening , digital, bilateral 2018 [facility], [address], [facility] [address], [place], [address], 9 15:48:23 Medication Orders Lyrica 50 mg capsule 2018 019 crexMorgan [facility], [address] [place] [address], [address], 0 09:21:41 Xeljanz XR 11 mg tablet,ex tended release 2018 019 crexford [facility], [address] [place] [address], [address], 9 10:46:38 Creon 6,000-19, 000-30,00 0 unit capsule,d elayed release 2018 019 kyoungma [facility], [address] [place] [address], [address], 9 11:58:52 Lantus U-100 Insulin 100 unit/mL subcutane ous solution 2018 019 jdeyto [id number], [address], [place], [place], [id number], 9 12:20:48 gabapenti n 300 mg capsule 2018 019 INTERFACE [facility] #[id number], [address], [place], [place], [id number], 9 11:45:34 guaifenes in ER 600 mg tablet, extended release 12 hr 2018 019 jeremi [id number], [address], [place], [place], [id number], 9 11:56:09 Patient TargetsNo targets recorded. Patient Instructions Encounter Date Encounter Id Patient Instructions Last Modified By Organization Details Last Modified Time 12/03/2018 [id number] learning about type 2 diabetes [email or web address] Not available 12/03/2018 11:48:49 type 2 diabetes: care instructions Not available 12/03/2018 11:48:49 learning about breast cancer screening Not available 12/03/2018 11:48:49 03/03/2020 [id number] Stress Incontinence: Care Instructions Not available 03/03/2020 09:42:07 Reason for Referral Director Home Health Referral for Recurrent pancreatitis recurrent pancreatitis, possible Lupus (seeing rheum) Please call pt to schedule appointment, Thank you Referring Physician: Radha Lynch, Internal Medicine, Encounter Date: 08/21/2018 Diabetic Ophthalmology Refer ral for Type 2 diabetes mellitus Referring Physician: Eliz George [facility]INE, Encounter Date: 12/03/2018 Director Home Health Referral for Screening for malignant neoplasm of colon Colonoscopy done 2009. Supposed to be repeated 2014. Schedule for February Referring Physician: Eliz George [facility], Encounter Date: 12/03/2018 Results Created Date Observation Date Name Description Value Unit Range Abnormal Flag Note LastModifiedBy Organization Detail LastModifiedTime 11/21/19 19 11/21/2018 CMP, serum or plasm a glucose 251 mg/dL 65-99 above high normal Not Available [facility] ([facility]) [address] [facility], [place], [address], 11/21/2018 06:37:29 11/21/19 19 11/21/2018 CMP, serum or plasm a BUN 8 mg/dL 8-27 Not Available [facility] ([facility]) [address] [place], [address], 11/21/2018 06:37:29 11/21/1911/21/2018 CMP, serum or plasm a creatinine 0.75 mg/dL 0.57-1 .00 Not Available [facility] ([facility]) [address] [place], [address], 11/21/2018 06:37:29 11/21/1911/21/2018 CMP, serum or plasm a eGFR if nonafricn AM 86 mL/mi n/1.7 3 >59 Not Available [facility] ([facility]) [address] [facility] [place], [address], 11/21/2018 06:37:29 11/21/1911/21/2018 CMP, serum or plasm a eGFR if africn AM 99 mL/mi n/1.7 3 >59 Not Available [facility] ([facility]) [address] [place], [address], 11/21/2018 06:37:29 11/21/1911/21/2018 CMP, serum or plasm a BUN/creatini ne ratio 11 12-28 below low normal Not Available [facility] ([facility]) [address] [place], [address], 11/21/2018 06:37:29 11/21/1911/21/2018 CMP, serum or plasm a sodium 138 mmol/ L 134-14 4 Not Available [facility] ([facility]) [address] [place], [address], 11/21/2018 06:37:29 11/21/1911/21/2018 CMP, serum or plasm a potassium 4.3 mmol/ L 3.5-5. 2 Not Available [facility] ([facility]) [address] [place], [address], 11/21/2018 06:37:29 11/21/1911/21/2018 CMP, serum or plasm a chloride 101 mmol/ L 96-106 Not Available [facility] ([facility]) [address] [place], [address], 11/21/2018 06:37:29 11/21/1911/21/2018 CMP, serum or plasm a carbon dioxide, total 23 mmol/ L 20-29 Not Available [facility] ([facility]) [address] [place], [address], 11/21/2018 06:37:29 11/21/1911/21/2018 CMP, serum or plasm a calcium 9.3 mg/dL 8.7-10 .3 Not Available [facility] ([facility]) [address] [place], [address], 11/21/2018 06:37:29 11/21/1911/21/2018 CMP, serum or plasm a protein, total 6.6 g/dL 6.0-8. 5 Not Available [facility] ([facility]) [address] [place], [address], 11/21/2018 06:37:29 11/21/1911/21/2018 CMP, serum or plasm a albumin 4.0 g/dL 3.6-4. 8 Not Available [facility] ([facility]) [address] [place], [address], 11/21/2018 06:37:29 11/21/1911/21/2018 CMP, serum or plasm a globulin, total 2.6 g/dL 1.5-4. 5 Not Available [facility] ([facility]) [address] [place], [address], 11/21/2018 06:37:29 11/21/1911/21/2018 CMP, serum or plasm a A/G ratio 1.5 1.2-2. 2 Not Available [facility] ([facility]) [address] [place], [address], 11/21/2018 06:37:29 11/21/1911/21/2018 CMP, serum or plasm a bilirubin, total 0.4 mg/dL 0.0-1. 2 Not Available [facility] ([facility]) [address] [facility] [place], [address], 11/21/2018 06:37:29 11/21/1911/21/2018 CMP, serum or plasm a alkaline phosphatase 137 IU/L 39-117 above high normal Not Available [facility] ([facility]) [address] [facility] [place], [address], 11/21/2018 06:37:29 11/21/1911/21/2018 CMP, serum or plasm a AST (SGOT) 22 IU/L 0-40 Not Available [facility] ([facility]) [address] [place], [address], 11/21/2018 06:37:29 11/21/1911/21/2018 CMP, serum or plasm a ALT (SGPT) 22 IU/L 0-32 Not Available [facility] ([facility]) [address] [place], [address], 11/21/2018 06:37:29 11/21/19 19 11/21/2018 amyla se + lipas e, serum amylase 72 U/L 31-124 Not Available [facility] ([facility]) [address] [place], [address], 11/21/2018 06:37:29 11/21/1911/21/2018 amyla se + lipas e, serum lipase 49 U/L 14-72 Not Available [facility] ([facility]) [address] [place], [address], 11/21/2018 06:37:29 11/21/1911/21/2018 eryth rocyt e sedim entat ion rate by emeka zelaya metho d sedimentatio n rate-westerg adebayo 58 mm/HR 0-40 above high normal Not Available [facility] ([facility]) [address], [place], [address], 11/21/2018 06:37:30 08/05/19 19 08/03/2018 CT, abdom en + pelvi s, w/ contr ast No observ ation record ed. [facility] (Imaging) [address] [facility] [address] [facility], [place], [address], 08/06/2018 09:32:46 12/13/19 19 12/12/2018 MAMMO , scree aly, digit al, bilat eral No observ ation record ed. [address] (Imaging) [address] [facility] [address], [place], [address], 01/01/2019 10:13:18 Result Notes None recorded. Problems Name Problem SNOMED Code Status Onset Date Resolution Date Notes Provider Name and Address Organization Details Recorded Time Rheumato id arthridereck s 60847987 Active Crystal Allenhurst null, [place] [facility] 9 10:46:46 Abdomina l aortic aneurysm 310889023 Active 2017 Crystal [place] [facility] 9 10:46:46 Tobacco user 034081578 Active 2017 Crystal [place] [facility] 9 10:46:46 Fibromya lgia 051901295 Active Crystal [place] [facility] 9 10:46:46 History of pancreat itis 40138578818 107 Active medicati on induced from MTX and Invokana Crystal [place] [facility] 9 10:46:46 Vitamin D deficien cy 14323507 Active [place] [facility] 9 10:46:46 Chronic obstruct kendra pulmonar y disease 49425854 Active per prior PCP had been on Dulera 100/5, albutero l nebs Crystal [place] [facility] 9 10:46:46 Coronary atherosc lerosis 083774353 Active s/p stent 04/2016 Gillian [place] [facility] 9 10:46:46 Mixed hyperlip idemia 000456168 [place] [facility] 9 10:46:46 Polyneur opathy 64404685 [place] [facility] 9 10:46:46 Obstruct kendra sleep apnea syndrome 66874044 Active 2015 severe REM dependen t CANDICE; recommen d CPAP titratio n (Dr. Abdulkadir Craft) [place] [facility] 9 10:46:46 Divertic ulosis of sigmoid colon 586687686 Active [address] abd/pelv is report Gillian cardenas [place] [facility] 9 10:46:46 Steatoti c liver disease 836879187 Active 2015 per MRI MRCP [place] [facility] 9 10:46:46 Sliding hiatus hernia 770557693 [place] [facility] 9 10:46:46 Bilatera l inguinal hernia 92337406 Active containi ng fat. [place] [facility] 9 10:46:46 Chronic pancreat itis 716114800 Active 2019 FRANCIS [place] [facility] 0 09:33:29 Arthriti s 0729698 Completed 201612/28/2017 Radha Lynch PA-C Attn: Yolanda g,[address] [facility], [place], [address] [place] [facility] 8 14:50:36 Neuropat hy 521835268 Active 2016 Gillian [place] [facility] 9 10:46:46 Type 2 diabetes mellitus 36831989 Active 2016 Gill[place] [facility] 9 10:46:46 Problem Notes None recorded. Procedures Surgical History Date Name Laterality Status Provider Name and Address Organization Details Recorded Time 12/13/19 19 Most Recent Mammogram completed Gillian JohnsonFRANCIS mcgill [place] - [facility] 03/03/2020 09:22:59 05/25/19 19 Nebulizer tx completed Radha Lynch PA-C Attn: Accounting, [address] [facility], [place], [address], [place] [facility] 05/25/2018 12:49:54 02/23/20 17 Angioplasty With Stent completed ZA Kohli [place] [facility] 12/28/2017 14:33:23 11/16/19 17 Date of Last Pap Smear completed Gillian Johnsonford [place] - [facility] 12/03/2018 10:46:14 10/23/19 17 Angioplasty With Stent completed ZA Kohli [place] [facility] 12/28/2017 14:33:19 09/01/19 10 Other completed Gillian Washburn [place] - [facility] 2016 14:31:50 04/24/19 10 [facility] 14:32:15 04/24/19 10 Hernia Repair completed Gillian Allenhurst [place] - [facility] 2016 14:32:37 04/24/18 84 Other completed Crystal Allenhurst [place] [facility] 2016 14:33:17 04/24/18 78 [facility] 14:32:54 Imaging Results Imaging Date Name Status LastModified by Organiz ation Details LastModified Time 08/03/2018 CT, abdomen + pelvis, w/ contrast completed [facility] (Imaging) [address] [place] [address], [address], 08/06/2018 09:32:46 12/12/2018 MAMMO, screening, digital, bilateral completed [address] [place] [address], [address], 01/01/2019 10:13:18 Procedure Notes None recorded. Medical Equipment None Reported. Allergies Allergen ID Allergen Name Allergen Category Reaction Reaction Severity Criticality Documentation Date Start Date Code Code System Note Provider Name and Address Organization Details Recorded Time 385303 metformin medicatio n nausea vomiting Not available Not available Not available 12/28/2017 6809 RxNorm ZA [place], [place] [facility] 8 14:25:40 92726 Invokana medicatio n other Not available Not available 2016 87045 64 RxNorm cause s pt to have pancr eatit is Crystal Maddison null, [place] [facility] 7 14:17:27 38738 methotrex ate medicatio n other Not available Not available 2016 6851 RxNorm pancr eaiti s ZA [place] [facility] 8 14:25:53 Medications Name Sig Start Date Stop Date [...] with needle 0.5 mL 31 gauge x 09/06 active Not Available Not Available Not Available [...] Updated DateTime 9 160.02 cm 33.2 kg/m2 50872.4 9 g 97 /min 16 /min 96.1 [degF] 98 % 98 % 128 mm[Hg] 84 mm[Hg] ZA Kohli [place] - [facility] 9 11:31:33 Date Recorded Body height Body mass index (BMI) Body weight Heart rate Body temperature Oxygen saturation Oxygen saturation in Arterial blood by Pulse oximetry Provider Name and Address Organization Details Last Updated DateTime 9 160.02 cm 32.5 kg/m2 49296.1 2 g 79 /min 98.6 [degF] 97 % 97 % ZA Kohli [facility] 9 11:54:15 Date Recorded Body height Body mass index (BMI) Body weight Heart rate Respiratory rate Body temperature Oxygen saturation Oxygen saturation in Arterial blood by Pulse oximetry Systolic blood pressure Diastolic blood pressure Provider Name and Address Organization Details Last Updated DateTime 9 160.02 cm 32.7 kg/m2 45490.4 3 g 94 /min 16 /min 97.2 [degF] 96 % 96 % 122 mm[Hg] 78 mm[Hg] ShenaSTEPHANIE BaileyYvnone [facility] 9 12:01:42 Date Recorded Body height Body mass index (BMI) Body weight Systolic blood pressure Diastolic blood pressure Provider Name and Address Organization Details Last Updated DateTime 12/03/2018 160.02 cm 32.9 kg/m2 51280.74 g 120 mm[Hg] 90 mm[Hg] Gillian Washburn [facility] 9 10:49:55 Social History Question Answer Notes LastModified by Organizat ion Details LastModified Time Tobacco Smoking Status Current Every Day Smoker Gillian Washburn MA [facility], [facility] 03/03/2020 09:23:36 Is Blood Transfusion Acceptable In An Emergency? No Information not available 2016 What Is Your Level Of Caffeine Consumption? Moderate 1 Cups Coffee Daily, Information not available 12/28/2017 How Much Tobacco Do You Chew? None Information not available 2016 What Type Of Diet Are You Following? REGULAR One Meal A Day Information not available 12/28/2017 Which Illicit Or Recreational Drugs Have You Used? Denies Information not available 2016 Education 12 Information no t available 2016 Hard Of Hearing Or Deaf In One Or Both Ears? No Information not available 12/28/2017 Legally Blind In One Or Both Eyes? No Information not available 12/28/2017 Live Alone Or With Others? With Others Information not available 2016 Marital Status jeremi Informatio n not available 12/28/2017 What Was The [...] Smoking Tobacco? 15 Information not available 2016 How Much Tobacco Do You Smoke? 0.5 [...] Functional Status Question Answer Note LastModified by Organizat ion Details LastModified Time What is your level of alcohol consumption? None Information not available 2016 Do you or have you ever used smokeless tobacco? Never used smokeless tobacco Information not available 11/20/2018 Are you currently employed? No disabled Information not available 2016 What is your occupation? disabled Information not available 12/28/2017 Do you or have you ever used e-cigarettes or vape? Never used electronic cigarettes Information not available 11/20/2018 What is your exercise level? None Information [...] Response Coronary Artery Disease N Other N High Blood Pressure N Atrial Fibrillation N Breast Cancer N Thyroid Problems N Kidney or Bladder Problems N Depression N COPD Y Blood Clots N GI Problems Y Lung Disease Y Acne N Eating Disorder N Skin Problems Y Breast Problem N Anemia N Anesthesia Complications N Heart Attack ([place]) Y Headaches/Migraines Y Anxiety Disorder Y Ovarian Cancer N Diabetes Y Muscle, Joint, or Bone Problems Y Blood Transfusions N Seizures/Epilepsy N Polyps Y Infertility N Acid Reflux (GERD) Y Cancer Y Stroke N Abuse/Domestic Violence N Asthma N Allergies N Endometriosis N High Cholesterol Y Hepatitis N Liver Disease Y Heart Disease Y Pre-Eclampsia N Osteoporosis Y Heart Failure N Gynecological History Statement/Question Response Abnormal Pap N [...] SNOMED-CT Code Diagnosis ICD10 Code Diagnosis Note [id number] MD Mina Dubois (LABOR[facility] MINE) [address] [place] [address] 2016 13:54:39 11/17/2016 11:52:56 Screening for malignant neoplasm of colon 577141305 Z12.11 Was supposed to have 5 year repeat in 2014. Saw Dr. Carter at [place]. Referral sent to Dr. Carter Screening for malignant neoplasm of breast 153226622 Z12.31 Gynecologi c examination 99427923 Z01.411 No pap since 1999. Pap done. Pt. to call for results. Obesity 786764751 E66.9 Nutrition and exercise discussed. [id number] MD Mina Segovia (Adult Med) [address] [place] [address] 12/28/2017 13:53:36 01/16/2018 09:20:43 Type 2 diabetes mellitus 29841153 E11.69 reviewed diet with patient, possible gastropare sis due to DM. Also discussed medication s and cause for possible hypoglycem ia especially if she is not eating while taking SFU. We will check A1c and see what med changes can be done. Multi vess el coronary artery disease 121369368 I25.10 we will get records from cardiology , cont plavix, statin, ASA, carvedilol Neuropathy 018555649 G62 .9 She felt gabapentin trial worked better than lyrica will start that. Try OTC lidocaine 4% at bedtime. Rheumatoid arthritis 698 86380 M06.9 sees Rheum, on xeljan x2 yrs. Nausea, vo miting and diarrhea 2253054 R11.2 need to eval for gastropare sis due to recurrent sxs and poor appetite. also has h/o pancreatit is on MTX. Chronic constipation 236 954127 K59.09 possibly related to gastropare sis. Immunization refused 275 746981 Z28.20 Tobacco user 964771963 Z 72.0 patient advised to restart Chantix, she will call when she is ready to restart. Abdominal aortic aneurysm 303620427 I71.4 3.5cm per patient at last u/s. cont to follow w/ vascular surgery Depressive disorder 3548 9007 F33.1 she is reluctant to start anti-depre ssant at this time. we will revisit at f/u. [id number] [facility] [address] [place] [address] 01/25/2018 14:58:13 01/26/2018 17:55:04 Type 2 diabetes mellitus 95624463 E11.69 reviewed A1c, blood sugars, says she still doesn't understand it. Patient advised that she needs to call cardiology about the chest pain first we can reschedule for diabetes management . Neuropathy 633579937 G62 .89 with DM and CAD x 2 stents. She feels gabapentin is helping, she hasn't fully titrated up to TID dose yet. Chest pain 27002537 R07. 89 Monday had sharp pain started underneath right breast and then moved to left side of chest into left jaw and shoulder. Patient advised to call her cardiologi today, provided number and go to ER if pain returns. Chronic constipation 236 034596 K59.09 possibly related to gastropare sis. advised her to schedule gastric emptying study. Nausea and vomiting 1692 1999 R11.2 improved since constipati on has been better. [id number] MD Mina Segovia (Adult Med) [address] [place] [address] 03/01/2018 14:52:45 03/23/2018 15:06:16 Coronary atherosclerosis 308314502 I25.119 s/p stent placement at proximal LAD, cont f/u with cardiology as planned, cont smoking cessation. Agree w/ nutritioni st referral for both DM and CAD. Cont all meds from hospital stay. Type 2 sanjuana betes mellitus 10112986 E11.[address] and DM management as she is still not sure how to manage her blood sugars [id number] MD Mina Segovia (Adult Med) [address] [place] [address] 05/17/2018 10:11:00 05/21/2018 10:26:57 Type 2 diabetes mellitus 05617517 E11.69 reviewed A1c 7.7%, blood sugars in 300s to 500s lately. Discussed options and with her recent UT, recommend she start insulin rather than DPP4. Instructed on how to use the pen, but she would prefer insulin vial, her mom used it and she is familiar on how to use the insulin syringe and needle. Cont to keep track of glucose, short term f/u in 4 weeks. Call if any problems. Discussed hypoglycem ia sxs. Cont oral meds for now. [id number] MD Mina Segovia (Adult Med) [address] [place] [address] 05/25/2018 11:10:10 05/28/2018 09:20:51 Chronic obstructive pulmonary disease 20518967 J44.0 likely cause of current cough sxs. Cont zyrtec, fluticsone nasal spray, treat w/ abx and use pro-air inhaler which she hasn't been using. she has nebulizer at home, not using currently. cont smoking cessation Type 2 sanjuana betes mellitus 05131704 E11.69 Increase insulin to 15u if glucose 300s, up to 20u if glucose 400 or greater. Staff assisted pt logging into portal and she will send blood sugars if not responding to increase in Lantus. [id number] MD Mina Segovia (Adult Med) [address] [place] [address] 06/07/2018 10:57:08 06/08/2018 08:49:31 Type 2 diabetes mellitus 69786796 E11.69 reviewed her glucometer readings for last month. Increase lantus to 18u at bedtime, cont to follow w/ nutritioni st to manage diet better. cont glipizide 10mg QAM and 5mg QPM Cough 78323611 R05 improved lung sounds on exam today after completing short course of steroids; try mucinex & cont to drink plenty of water. Use nebulizer at least once a day when she is having her worst coughing spasms Diabetic p eripheral neuropathy 709944898 E11.40 Worse lately, cont to drink water and increase nighttime gabapentin to 600mg. [id number] MD Mina Segovia (Adult Med) [address] [place] [address] 08/21/2018 11:09:19 08/21/2018 13:37:18 Type 2 diabetes mellitus 86046441 E11.69 saw endocrinol ogy, increased lantus, decreased glipizide. reviewed diet and how DM contribute s to pancreatit is. Recurrent pancreatitis 934401288 K86.1 This is her 5th episode, she had reaction to Invokana and MTX in past. discussed w/ patient possible DM cause vs. autoimmune etiology vs. idiopathic . She is very scared of dying from it, son from this possibly linked to depakote use. Start pancreatic enzymes, see GI specialist . Advised on low fat diet, reduce sugars, carbs. drink plenty of fluids. [id number] PAULINO Saunders (Adult Med) [address] [place] [address] 11/20/2018 11:48:05 11/21/2018 08:39:54 Rheumatoid arthritis 32938873 M06.9 will see Rheum in Dec, on [...] and prevent falls/inju ry. Chronic pancreatitis 235 717601 K86.1 multiple factors including DM, RA, medication s, HLD with elevated triglyceri lane (300s last checked here i n Dec). to get ERCP at [facility] soon. cont to f/u with GI for colonoscop y as well. Fibromyalgia 413970333 M 79.7 felt better when she was on Lyrica, but insurance didn't cover it last year, too expensive out of pocket. Will try w/ new insurance. She also has rheum f/u in Dec. Tobacco user 971246029 Z 72.0 Cont Chantix, cont to try and wean down cigarettes . [id number] MD Mina Dubois ([facility]) [address] [place] [address] 12/03/2018 10:25:24 12/04/2018 11:20:38 Gynecologic examination 19064844 Z01.411 Last pap done 09/15/16 was negative QNS for hr-HPV. Therefore, no pap needed. Screening for malignant neoplasm of breast 966711435 Z12.31 Last 2016. Mammogram ordered. Screening for malignant neoplasm of colon 341715353 Z12.11 Last 2009. Was supposed to have 5 year repeat in 2014. Saw Dr. Carter at [place]. Referral sent to Dr. Carter Type 2 sanjuana betes mellitus [id number] E11.9 [id number] MD Mina Dubois (LABORER MINE) [address] [place] [address] 03/03/2020 08:16:43 03/05/2020 11:02:01 Urinary incontinence [id number] R32 Pt. with c/o worsening urinary incontinen [...] Borrero Member ID Guarantor Name 06/07/2018 2 [facility] (MEDICARE REPLACEMENT/ ADVANTAGE - HMO) [id number] Keyla Cotog [id number] Keyla Whitley 06/07/2018 1 [employer] [employer] (O) [id number] Mike Cotog [id number] 0001 [facility]yla [facility] 08/21/2018 2 [facility] (MEDICARE REPLACEMENT/ ADVANTAGE - HMO) [id number] Keyla Cotog [id number] [facility] 08/21/2018 1 [employer] [employer] (PPO) [id number] Mike Cotog [id number] 0001 [facility] 11/20/2018 2 [facility] (MEDICARE REPLACEMENT/ ADVANTAGE - HMO) [id number] Keyla Cotog [id number] [facility] 11/20/2018 1 [employer] [employer] [place] (PPO) [id number] Mike Cotog [id number] 0001 [facility] 12/03/2018 2 [facility] (MEDICARE REPLACEMENT/ ADVANTAGE - HMO) [id number] Keyla Cotog [id number] [facility] 12/03/2018 1 [employer] [employer] (PPO) [id number] Mike Cotog [id number] 0001 [facility] 03/03/2020 2 [facility] (MEDICARE REPLACEMENT/ ADVANTAGE - HMO) [id number] Keyla Cotog [id number] [facility] 03/03/2020 1 [employer] [facility] (PPO) [id number] Mike Liuigg [id number] 0001 [facility] Notes Date Note Type Note Provider Name [...] less fatigued. has quit all regular soda, salesperson jewelry said ok to drink diet Dr. Dacosta. but pt limiting it to 2 a day and rest of day drinking at least 3 8oz glasses of water. has appt w/ assembler small products in June.Cont to be tobacco free. doesn't drink much alcohol but craving beer, will check w/ assembler small products to see if that is ok. still has cough, but not as bad, not able to cough up mucous, feels it gets stuck in throat. no more wheezing, not using nebulizer every day Radha Lynch PA-C Attn: Accounting,[address] [place], [address], [facility] [employer] 06/07/2018 13:23:33 9 text/html Diabetes F/UReported bypatient.Context:checkin [...] it. Radha Lynch PA-C Attn: Accounting,[address] [facility], [place], [address], [facility] 11/28/2018 14:19:52 9 text/html Diabetes F/UReported bypatient.Labs:last [...] xeljans for about a year since her executive secretary left area, but now Dr. [place]; no falls tobacco still smoking and using Chantix, down to 1/2 ppd or less. right knee surgery postponed until Dec ortho f/u. Radha Lynch PA-C Attn: Accounting[address] [place], [address], [facility] 11/20/2018 13:11:21 9 text/html Annual GYNReported bypatient.Menstrual [...] colonoscopy (Pt to call Dr. Carter, her supervisor wrapping room.) Eliz George [facility] 12/03/2018 11:53:17 0 text/html Telephone visit due to COVID-19 pandemic. Pt. with c/o urinary incontinence that is getting progressively worse. She is using 2-3 pads daily and they are irritating her. She now wants a pessary. Eliz [place], [place] - [facility] 03/03/2020 09:42:32 OBGyn Episode Ob Episode Information Episode Created Date Number of Fetuses Patient Bloodtype Patient rh Status Prepregnancy Weight lbs Domestic Partner Domestic Partner Phone Father Name Termite Inspector Status 11/16/19 17 1 CLOSED Fetus Data First Name Last Name Admitted to NICU Weight (g) Sex Living Outcome Pediatric Complications Fetus ID Race Codes Race Delivery Type 1814.36 8 M Full Term [id number] Vaginal Ashish Calculation Initial Ashish Date Initial [...] Domestic Partner Domestic Partner Phone Father Name Termite Inspector Status 11/16/19 17 1 CLOSED Fetus Data First Name Last Name Admitted to NICU Weight (g) Sex Living Outcome Pediatric Complications Fetus ID Race Codes Race Delivery Type 2636.27 6704 M Full Term [id number] Vaginal Ashish Calculation Initial Ashish Date Initial Exam Date Initial Exam Provider Initial Ultrasound Date Last Menstrual Period Date Ultra Sound Weeks Gestation 0 Eighteen To Twenty Week Ashish Update Ultra Sound Date Fundal Height At Umbil Quickening Date Ultra Sound Latest Weeks Gestation Final Ashish Confirmed By Final Ashish Confirmed Date Final Asihsh Date Ultra Sound Latest Days Gestation 0 [...]
--- OUTSIDE RECORDS SUMMARY | 2024-09-09 14:20 | XMS_ITS | Clinical Summary ---
Author Organization [facility] Address [address] [place] [address] Care Team Providers Care Teenage Program Director Name Role Phone Karan Ngo MD Unavailable Abdulkadir Craft MD Unavailable Carole Neal MD Unavailable [phone] Rohith Sen MD Primary Care Provider [phone] Allergies Active Allergy Reactions Criticality Noted Date [...] Colorectal Cancer Screening Colonoscopy (10 Years) 1956 Hepatitis C 1974 DTaP, Tdap and Td Vaccines ( 1 - Tdap) 11/16/1975 Pneumococcal Vaccine: 50+ Years (1 of 2 - PCV) 11/16/1975 Mammogram Screening 1996 Zoster Vaccines (1 [...] patient's age to complete this topic Insurance [facility] Care Teams Teenage Program Director Relationship Specialty Start Date End Date Rohith Sen MD [address] [place] [address] PCP - General FAMILY PRACTICE 02/03/23 Karan Ngo MD [address] [facility] [address] [place] [address] CARDIOVASCULAR DISEASE 01/29/21 [place] [address] [place] [address] Referring Physician RHEUMATOLOGY 01/29/21 Carole Neal MD [address] [place] [address] PULMONARY DISEASE 01/29/21
--- OUTSIDE RECORDS SUMMARY | 2024-09-09 14:20 | XMS_ITS | Encounter Summary ---
Author Organization [facility] Address [address] [place] [address] Care Team Providers Care Chain Offbearer Name Role Phone Karan Ngo MD Unavailable Abdulkadir Craft MD Unavailable Carole Neal MD Unavailable [phone] Rohith Sen MD Primary Care Provider [phone] Encounter Details Date Type Department Care Team (Late st Contact Info) Description 01/30/[address] [facility] [place] [id number] Maximo Jones MD [address] [facility] [place], [place] [id number] Social History Tobacco Use Types Packs/Day Years [...] Arthritis RA, osteoarthritis, psoriatric arthritis ??? Cancer ([facility]) leukemia as a child ??? Colitis ??? COPD (chronic obstructive pulmonary disease) ([facility]) ??? Coronary artery disease ??? 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 Diabetes mellitus ([facility]) ??? Diverticulitis ??? Emphysema lung ([facility]) ??? MVP (mitral valve prolapse) ??? Neuropathy feet ??? On supplemental oxygen by nasal cannula 4L O2 PRN ??? Seizure ([facility]) patient unsure about this ??? Stroke ([facility]) possible TIA? Allergies: Allergies Allergen Reactions [...] on filedocumented in this encounter Care Teams Chain Offbearer Relationship Specialty Start Date End Date Rohith Sen MD [address] [place] [id number] PCP - General FAMILY PRACTICE 02/03/23 Karan Ngo MD [address] [facility] [address] [place] [address] CARDIOVASCULAR DISEASE 01/29/21 [place] [address] [place] [address] Referring Physician RHEUMATOLOGY 01/29/21 Carole Neal MD [address] [place] [address] PULMONARY DISEASE 01/29/21 documented as of this encounter
--- OUTSIDE RECORDS SUMMARY | 2024-09-09 14:20 | XMS_ITS | Clinical Summary ---
Author Organization [facility] [address] [facility] [address] Address [address] [place] [address] Care Team Providers Care Industrial Sweeper Cleaner Name Role Phone Karan Ngo MD Unavailable Rohith Sen MD Primary Care Provider [phone] Allergies Active Allergy Reactions Criticality Noted Date Comments Meloxicam Other (See comments) Low 01/29/2021 pancreatitis Meperidine Other (See comments),Hives,Swelling Medium 06/12/2015 Swelling in mouth, hard to swollow Reaction: anaphylaxis, Metformin Diarrhea Low 07/10/2018 Methotrexate Other (See comments) Low 06/12/2015 pancreatitis Reaction: pancreatitis, pancreatitis pancreatitis Medications aspirin 81 mg tabletIndication s:prevention of thrombosis Take 1 tablet (81 mg total) by mouth daily 11 017 Active ergocalciferol (VITAMIN D) 50,000 unit capsuleIndicatio ns:Monday Take 1 capsule (50,000 Units total) by mouth once a week Active albuterol (PROVENTIL,LIU LIVIA) 2.5 mg /3 mL (0.083 %) nebulizer solution U 3 ML VIA NEB Q 4 H PRN 1 017 Active insulin glargine (BASAGLAR) 100 unit/mL (3 mL) pen for injection Inject 32 units under the skin nightly 30 mL 1 021 Active Additional Information Patient taking differently: 32 Units subcutaneous Nightly, Inject 32 units under the skin nightly, Indications: type 2 diabetes mellitus, Reported on 12/16/2021 ipratropium-albu teroL (DUO-NEB) 0.5-2.5 mg/3 mL nebulizer solutionIndicati ons:Chronic Obstructive Pulmonary Disease with Bronchospasms Take 3 mL by nebulization every 6 (six) hours 180 mL 1 021 Active traMADoL (ULTRAM) 50 mg tablet TAKE 1-2 TABLETS BY MOUTH WITH OTC TYLEONOL THREE TIMES DAILY NEEDED FOR PAIN Active nitroglycerin (NITROSTAT) 0.4 mg SL tabletIndication s:acute episode of anginal pain Place 1 tablet (0.4 mg total) under the tongue every 5 (five) minutes as needed for chest pain May repeat every 5 min, up to 3 doses. 25 tablet 3 Active insulin lispro (HumaLOG, ADMELOG) 100 unit/mL vial for injection 5 UNITS SUBCUTANEOUSLY 3 TIMES DAILY PRIOR TO MEALS IF BLOOD SUGAR > 150 Active isosorbide mononitrate ER (IMDUR) 60 mg 24 hr tabletIndication s:Coronary artery disease of [place] artery of [place] heart with stable angina pectoris TAKE 1 TABLET BY MOUTH EVERY DAY 90 tablet 3 024 Active ezetimibe (ZETIA) 10 mg tablet Take 1 tablet (10 mg total) by mouth daily 30 tablet 11 024 2024 Active rosuvastatin (CRESTOR) 40 mg tablet TAKE 1 TABLET BY MOUTH EVERY DAY AT NIGHT 90 tablet 3 024 Active carvediloL (COREG) 3.125 mg tablet Take 1 tablet (3.125 mg total) by mouth 2 (two) times a day with meals 180 tablet 1 025 Active clopidogreL (PLAVIX) 75 mg tablet TAKE 1 TABLET BY MOUTH EVERY DAY 90 tablet 1 025 Active lisinopriL (PRINIVIL,ZESTRI L) 5 mg tablet TAKE 1 TABLET (5 MG TOTAL) BY MOUTH DAILY. 90 tablet 1 025 Active clopidogreL (PLAVIX) 75 mg tablet TAKE 1 TABLET BY MOUTH EVERY DAY 90 tablet 1 024 2024 Discontinued lisinopriL (PRINIVIL,ZESTRI L) 5 mg tablet TAKE 1 TABLET (5 MG TOTAL) BY MOUTH DAILY. 90 tablet 1 024 2024 Discontinued Active Problems Problem Noted Date Diagnosed Date COPD exacerbation ([facility]) 10/10/2020 Acute on chronic respiratory failure with hypoxe brian 10/10/2020 Pancreatic cyst 03/23/2020 Type 2 diabetes mellitus wit h hyperglycemia, with long-term current use of insulin 03/16/2020 Assessment & Plan (03/16/2020 2:22 PM SENIOR CORPORATE STRATEGY MANAGER): Diagnosed in 2013- Had recurrent pancreatitis. Started [...] 03/16/2020 Assessment & Plan (03/16/2020 2:23 PM SENIOR CORPORATE STRATEGY MANAGER): Complicated with CAD Controlled with medication - [...] (11/02/2018): Added automatically from request for surgery [id number] Assessment & Plan (12/11/2018 5:10 PM CDT): [...] 3 days Coronary artery disease Tobacco abuse Surgical History Surgery Date Site/Laterality Comments CARDIAC [...] on file Legal Sex Female 1:49 PM SENIOR CORPORATE STRATEGY MANAGER Gender Identity Not on file Sexual Orientation [...] 09/10/2022 09/10/2021, 06/22, 02/20/2021, Additional history exists Lipid Panel 12/04/2024 12/05/2023, 11/23, 02/03/2021, Additional history exists Influenza Vaccine (Season Ended) 2024 Medical Devices Implanted Type Area Executive Chef Assistant Device Identifier Shelf Expiration Date Model / Serial / Lot System Coronary Stent Synergy Pebax Everolimus Eluting [place] Chromium Plga L12 Mm L144 Cm Od2.25 Mm Radiopaque 1 Access Port Inflation Lumen Accepts .014 In Guidewire - [id number] Implanted:Qty: 1 on 04/06/2017 by Karan Ngo MD [facility] 12/19/2017 [id number] 220 / / [id number] Procedures Procedure Name Priority Date/Time Associated Diagnosis Comments POCT LIPID PANEL Routine 12/05/2023 11:2 5 AM CDT Lipid screening EGFR STAT 09/10/2021 3:31 PM CDT POCT HEMOGLOBIN A1C Routine 03/16/2020 2 :10 PM SENIOR CORPORATE STRATEGY MANAGER Type 2 diabetes mellitus with hyperglycemia, with long-term current use of insulin (HCC) DIABETES EYE EXAM Routine 02/06/2019 from Last [...] 3:31 PM CDT 09/10/2021 3:44 PM CDT us Brenda Mast MD LAB BLOOD ORDERABLES Tanika l Result [facility] [address] [facility] [place] [address] * POCT hemoglobin A1c (03/16/2020 2:10 PM SENIOR CORPORATE STRATEGY MANAGER) Hemoglobin A1C, POC 7.1 Blood specimen (specimen) 03/16/2020 2:10 PM SENIOR CORPORATE STRATEGY MANAGER us Abena Ronquillo MD POINT OF CARE TEST ORDERABLES Final Result * DIABETES EYE EXAM (02/06/2019) Diabetic Eye Exam Unknown Historical Provider HEALTH MAINTENANCE Final Result from Last 3 Months or Most Recently Relevant to Health Maintenance Insurance [facility] MEDICARE ADVANTAGE Advance Directives For more information, please contact: [phone] * Full Code (Latest Code Status on File) Date Activated Date Inactivated Comments 10/10/2020 6:56 PM 10/12/2020 5:57 PM * Full Code Date Activated Date Inactivated Comments 11/30/2018 7:41 AM 11/30/2018 1:32 PM * Full Code Date Activated Date Inactivated Comments 04/06/2017 3:48 PM 04/07/2017 2:06 PM Care Teams Industrial Sweeper Cleaner Relationship Specialty Start Date End Date Rohith Sen MD [address] [place] [address] [place] [address] PCP - General Family Practice 12/05/23 Karan Ngo MD [address] [place] [address] [place] [address] Consulting Physician Cardiology 11/02/18
--- OUTSIDE RECORDS SUMMARY | 2024-09-09 14:20 | XMS_ITS | Encounter Summary ---
Author Organization [facility] Address [address] [place] [address] Phone Care Team Providers Care Flight Superintendent Name Role Phone Karan Ngo MD Unavailable Gin Wilson MD Primary Care Provider Gin Wilson MD Primary Care Provider Rohith Sen MD Primary Care Provider [phone] Encounter Details Date Type Department Care Team [...] on file Legal Sex Female 1:49 PM LINE CAMERA OPERATOR Gender Identity Not on file Sexual Orientation [...] CDT COVID19 02/19/2021 02/19/2021 03/05/2021 3:05 AM LINE CAMERA OPERATOR COVID: Recovered Comment:Added based on recent COVID infection. 03/05/2021 06/08/2021 07/03/2021 3:[address] documented as of this encounter Care Teams Flight Superintendent Relationship Specialty Start Date End Date Gin Wilson MD [address] [place] [address] PCP - General Family Practice 06/19/19 01/31/21 Gin Wilson MD [address] [address] [place] [address] PCP - General Family Practice 02/01/21 12/04/23 Rohith Sen MD [address] [place] [address] PCP - General Family Practice 12/05/23 Karan Ngo MD [address] [place] [address] Consulting Physician Cardiology 11/02/18 documented as of this encounter
--- OUTSIDE RECORDS SUMMARY | 2024-09-09 14:20 | XMS_ITS | Referral Summary ---
Author Organization [facility] [address] [facility] [address] Address [address] [place] [address] Care Team Providers Care Plant Machinist Name Role Phone Karan Ngo MD Unavailable Rohith Sen MD Primary Care Provider [phone] Allergies Active Allergy Reactions Criticality Noted Date [...] 24 hr tabletIndication s:Coronary artery disease of [place] artery of [place] heart with stable angina pectoris TAKE 1 [...] Problem Noted Date Diagnosed Date COPD exacerbation ([facility]) 10/10/2020 Acute on chronic respiratory failure with hypoxe brian 10/10/2020 Pancreatic cyst 03/23/2020 Type 2 diabetes mellitus wit h hyperglycemia, with long-term current use of insulin 03/16/2020 Assessment & Plan (03/16/2020 2:22 PM GLASS SCIENCE ENGINEER): Diagnosed in 2013- Had recurrent pancreatitis. Started [...] 03/16/2020 Assessment & Plan (03/16/2020 2:23 PM GLASS SCIENCE ENGINEER): Complicated with CAD Controlled with medication - [...] (11/02/2018): Added automatically from request for surgery [id number] Assessment & Plan (12/11/2018 5:10 PM CDT): [...] on file Legal Sex Female 1:49 PM GLASS SCIENCE ENGINEER Gender Identity Not on file Sexual Orientation [...] on file Medical Devices Implanted Type Area Ankle Patch Molder Device Identifier Shelf Expiration Date Model / Serial / Lot System Coronary Stent Synergy Pebax Everolimus Eluting [place] Chromium Plga L12 Mm L144 Cm Od2.25 Mm Radiopaque 1 Access Port Inflation Lumen Accepts .014 In Guidewire - [id number] Implanted:Qty: 1 on 04/06/2017 by Karan Ngo MD at [facility] 12/19/2017 [id number] 220 / / [id number] Procedures Procedure Name Priority Date/Time Associated Diagnosis Comments POCT LIPID PANEL Routine 12/05/2023 11:2 5 AM CDT Lipid screening EGFR STAT 09/10/2021 3:31 PM CDT POCT HEMOGLOBIN A1C Routine 03/16/2020 2 :10 PM GLASS SCIENCE ENGINEER Type 2 diabetes mellitus with hyperglycemia, with long-term current use of insulin ([facility]) DIABETES EYE EXAM Routine 02/06/2019 from Last [...] MD LAB BLOOD ORDERABLES Tanika l Result [facility] ([place] 1 [facility] Department [place] [address] * POCT hemoglobin A1c (03/16/2020 2:10 PM GLASS SCIENCE ENGINEER) Hemoglobin A1C, POC 7.1 Blood specimen (specimen) 03/16/2020 2:10 PM GLASS SCIENCE ENGINEER Abena Ronquillo MD POINT OF CARE TEST ORDERABLES Final Result * DIABETES EYE EXAM (02/06/2019) Diabetic Eye Exam Unknown Historical Provider HEALTH MAINTENANCE Final Result from Last 3 Months or Most Recently Relevant to Health Maintenance Insurance [facility] MEDICARE ADVANTAGE Advance Directives For more information, please contact: [phone] * Full Code (Latest Code Status on File) Date Activated Date Inactivated Comments 10/10/2020 6:56 PM 10/12/2020 5:57 PM * Full Code Date Activated Date Inactivated Comments 11/30/2018 7:41 AM 11/30/2018 1:32 PM * Full Code Date Activated Date Inactivated Comments 04/06/2017 3:48 PM 04/07/2017 2:06 PM Care Teams Plant Machinist Relationship Specialty Start Date End Date Rohith Sen MD [address] [address] PCP - General Family Practice 12/05/23 Karan Ngo MD [address] [address] [place] [address] Consulting Physician Cardiology 11/02/18
--- OUTSIDE RECORDS SUMMARY | 2024-09-09 14:20 | XMS_ITS | Data Portability ---
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 Plan of Treatment Reminders Order Date Submit Date Provider Last Modified By Organization Details Last Modified Time Details Appointments None recorded. Lab cortisol, am, serum 2022 023 [facility], [address], [place], [address], 3 15:23:09 dexamethaso ne, serum 2022 023 [facility], [address], [place], [address], 3 15:23:07 microalbumi n/creatinin e, mass ratio, urine 2022 023 [facility], [address], [place], [address], 3 15:23:07 CMP, serum or plasma 2022 023 [employer], [address], [place], [address], 3 15:23:06 HbA1c (hemoglobin A1c), blood 2022 023 [facility], [address], [place], [address], 3 15:23:10 lipid panel, serum 2022 023 [employer], [address], [place], [address], 3 15:23:05 TSH, serum or plasma 2022 023 [employer] [facility], [address], [place], [address], 3 15:23:08 T4, free, serum 2022 023 [facility], [address], [place], [address], 3 15:23:08 Referral None recorded. Procedures None recorded. Surgeries None recorded. Imaging bone density 2022 023 [facility] (Imaging), [address] [place] [address], [address], 3 18:06:42 Medication Orders dexamethaso ne 1 mg tablet 2022 023 [id number], [address] [place], [address], 3 15:14:07 Patient TargetsNo targets recorded. Patient [...] diabe abby for child adebayo. Not Available [address] [place], [address], 06/10/2021 12:18:35 06/09/19 22 06/10/2021 TSH+F REE T4 TSH 2.16 mIU/L 0.40-4 .50 normal Not Available [address] [place], [address], 06/10/2021 12:18:34 06/09/19 22 06/10/2021 TSH+F REE T4 T4, free 1.2 NG/dL 0.8-1. 8 normal Not Available [address] [address] [place], [address], 06/10/2021 12:18:34 06/09/19 22 06/10/2021 ALBUM IN, RANDO M URINE W/CRE ATINI NE creatinine, random urine 74 mg/dL 20-275 normal Not Available [address] [address] [place], [address], 06/10/2021 12:18:33 06/09/19 22 06/10/2021 ALBUM IN, RANDO M URINE W/CRE ATINI NE albumin, urine 0.2 mg/dL see note: normal Refer ence Range : Refer ence Range Not estab lishe d Not Available [address] [address] [place], [address], 06/10/2021 12:18:33 06/09/19 22 06/10/2021 ALBUM IN, [...] a diagn ostic categ ory. Not Available [facility] [address] [address] [place], [address], 06/10/2021 12:18:33 06/09/19 22 06/10/2021 COMPR EHENS ABBY METAB OLIC PANEL glucose 166 mg/dL 65-99 high Fasti ng refer ence inter aiden For someo ne witho ut known diabe abby, a gluco se value >125 mg/dL indic ates that they may have diabe abby and this shoul d be confi rmed with a follo w-up test. Not Available [facility] [address] [place], [address], 06/10/2021 12:18:32 06/09/19 22 06/10/2021 COMPR EHENS ABBY METAB OLIC PANEL urea nitrogen (BUN) 17 mg/dL 7-25 normal Not Available [facility] [address] [address] [place], [address], 06/10/2021 12:18:32 06/09/19 22 06/10/2021 COMPR EHENS ABBY METAB OLIC PANEL creatinine 1.14 mg/dL 0.50-0 .99 high For patie nts >49 years of age, the refer ence limit for Creat inine is appro ximat jose 13% highe r for peopl e ident ified as Afric an-Am jailyn n. Not Available [facility] [address] [place], [address], 06/10/2021 12:18:32 06/09/19 22 06/10/2021 COMPR EHENS ABBY METAB OLIC PANEL eGFR non-afr. andorran 51 mL/mi n/1.7 3m2 > or = 60 low Not Available [address], [address], 06/10/2021 12:18:32 06/09/19 22 06/10/2021 COMPR EHENS ABBY METAB OLIC PANEL eGFR 59 mL/mi n/1.7 3m2 > or = 60 low Not Available [address], [address], 06/10/2021 12:18:32 06/09/19 22 06/10/2021 COMPR EHENS ABBY METAB OLIC PANEL BUN/creatini ne ratio 15 (calc ) 6-22 normal Not Available [address], [address], 06/10/2021 12:18:32 06/09/19 22 06/10/2021 COMPR EHENS ABBY METAB OLIC PANEL sodium 139 mmol/ L 135-14 6 normal Not Available [address], [address], 06/10/2021 12:18:32 06/09/19 22 06/10/2021 COMPR EHENS ABBY METAB OLIC PANEL potassium 4.4 mmol/ L 3.5-5. 3 normal Not Available [address], [address], 06/10/2021 12:18:32 06/09/19 22 06/10/2021 COMPR EHENS ABBY METAB OLIC PANEL chloride 103 mmol/ L 98-110 normal Not Available [address], [address], 06/10/2021 12:18:32 06/09/19 22 06/10/2021 COMPR EHENS ABBY METAB OLIC PANEL carbon dioxide 25 mmol/ L 20-32 normal Not Available [address], [address], 06/10/2021 12:18:32 06/09/19 22 06/10/2021 COMPR EHENS ABBY METAB OLIC PANEL calcium 9.7 mg/dL 8.6-10 .4 normal Not Available [address], [address], 06/10/2021 12:18:32 06/09/19 22 06/10/2021 COMPR EHENS ABBY METAB OLIC PANEL protein, total 7.3 g/dL 6.1-8. 1 normal Not Available [address], [address], 06/10/2021 12:18:32 06/09/19 22 06/10/2021 COMPR EHENS ABBY METAB OLIC PANEL albumin 4.7 g/dL 3.6-5. 1 normal Not Available [address], [address], 06/10/2021 12:18:32 06/09/19 22 06/10/2021 COMPR EHENS ABBY METAB OLIC PANEL globulin 2.6 g/dL_ (calc ) 1.9-3. 7 normal Not Available [address], [address], 06/10/2021 12:18:32 06/09/19 22 06/10/2021 COMPR EHENS ABBY METAB OLIC PANEL albumin/glob ulin ratio 1.8 (calc ) 1.0-2. 5 normal Not Available [address], [address], 06/10/2021 12:18:32 06/09/19 22 06/10/2021 COMPR EHENS ABBY METAB OLIC PANEL bilirubin, total 0.4 mg/dL 0.2-1. 2 normal Not Available [address], [address], 06/10/2021 12:18:32 06/09/19 22 06/10/2021 COMPR EHENS ABBY METAB OLIC PANEL alkaline phosphatase 95 U/L 37-153 normal Not Available [facility] [address] [address] [place], [address], 06/10/2021 12:18:32 06/09/19 22 06/10/2021 COMPR EHENS ABBY METAB OLIC PANEL AST 19 U/L 10-35 normal Not Available [address], [address], 06/10/2021 12:18:32 06/09/19 22 06/10/2021 COMPR EHENS ABBY METAB OLIC PANEL ALT 22 U/L 6-29 normal Not Available [address], [address], 06/10/2021 12:18:32 06/09/19 22 06/10/2021 LIPID PANEL , STAND JOSE ENRIQUE cholesterol, total 215 mg/dL <200 high Not Available [address], [address], 06/10/2021 12:18:32 06/09/19 22 06/10/2021 LIPID PANEL , STAND JOSE ENRIQUE HDL cholesterol 51 mg/dL > or = 50 normal Not Available [address], [address], 06/10/2021 12:18:32 06/09/19 22 06/10/2021 LIPID PANEL , STAND JOSE ENRIQUE triglyceride s 223 mg/dL <150 high If a non-f astin g speci men was colle cted, consi dheeraj repea t trigl yceri de testi ng on a fasti ng speci men if clini sam indic ated. Abhishek amezquita et al. J. of Clin. Lipid ol. 2015; 9:129 -169. Not Available [address] [place], [address], 06/10/2021 12:18:32 06/09/19 22 06/10/2021 LIPID PANEL [...] 310(1 9): 2061- 2068 (http ://ed ucati on.Metaresolver. com/f aq/FA Q164) Not Available [facility] [address] [address] [address], [place], [address], 06/10/2021 12:18:32 06/09/19 22 06/10/2021 LIPID PANEL , STAND JOSE ENRIQUE chol/HDLC ratio 4.2 (calc ) <5.0 normal Not Available [facility] [address] [address], [place], [address], 06/10/2021 12:18:32 06/09/19 22 06/10/2021 LIPID PANEL , STAND JOSE ENRIQUE non HDL cholesterol 164 mg/dL _(roxie c) <130 high For patie nts with diabe abby plus 1 major ASCVD risk facto r, treat ing to a non-H DL-C goal of <100 mg/dL (LDL- C of <70 mg/dL ) is puneet stafford optio n. Not Available [facility] [address] [address], [place], [address], 06/10/2021 12:18:32 10/29/19 22 10/29/2021 HEMOG LOBIN [...] diabe abby for child adebayo. Not Available [address], [address], 10/29/2021 12:12:32 10/29/19 22 10/29/2021 TSH+F REE T4 TSH 1.43 mIU/L 0.40-4 .50 normal Not Available [address], [address], 10/29/2021 12:12:32 10/29/19 22 10/29/2021 TSH+F REE T4 T4, free 0.9 NG/dL 0.8-1. 8 normal Not Available [address], [address], 10/29/2021 12:12:32 10/29/19 22 10/29/2021 ALBUM IN, RANDO M URINE W/CRE ATINI NE creatinine, random urine 79 mg/dL 20-275 normal Not Available [address], [address], 10/29/2021 12:12:31 10/29/19 22 10/29/2021 ALBUM IN, RANDO M URINE W/CRE ATINI NE albumin, urine 1.1 mg/dL see note: normal Refer ence Range : Refer ence Range Not estab lishe d Not Available [address], [address], 10/29/2021 12:12:31 10/29/19 22 10/29/2021 ALBUM IN, [...] a diagn ostic categ ory. Not Available [address] [place], [address], 10/29/2021 12:12:31 10/29/19 22 10/29/2021 COMPR EHENS ABBY METAB OLIC PANEL glucose 87 mg/dL 65-99 normal Fasti ng refer ence inter aiden Not Available [address], [address], 10/29/2021 12:12:31 10/29/19 22 10/29/2021 COMPR EHENS ABBY METAB OLIC PANEL urea nitrogen (BUN) 9 mg/dL 7-25 normal Not Available [facility] [address] [place], [address], 10/29/2021 12:12:31 10/29/19 22 10/29/2021 COMPR EHENS ABBY METAB OLIC PANEL creatinine 0.91 mg/dL 0.50-0 .99 normal For patie nts >49 years of age, the refer ence limit for Creat inine is appro ximat jose 13% highe r for peopl e ident ified as Afric an-Am jailyn n. Not Available [address], [address], 10/29/2021 12:12:31 10/29/19 22 10/29/2021 COMPR EHENS ABBY METAB OLIC PANEL eGFR non-afr. andorran 67 mL/mi n/1.7 3m2 > or = 60 normal Not Available [address], [address], 10/29/2021 12:12:31 10/29/19 22 10/29/2021 COMPR EHENS ABBY METAB OLIC PANEL eGFR 77 mL/mi n/1.7 3m2 > or = 60 normal Not Available [address], [address], 10/29/2021 12:12:31 10/29/19 22 10/29/2021 COMPR EHENS ABBY METAB OLIC PANEL BUN/creatini ne ratio not applic able (calc ) 6-22 Not Available [address], [address], 10/29/2021 12:12:31 10/29/19 22 10/29/2021 COMPR EHENS ABBY METAB OLIC PANEL sodium 143 mmol/ L 135-14 6 normal Not Available [address], [address], 10/29/2021 12:12:31 10/29/19 22 10/29/2021 COMPR EHENS ABBY METAB OLIC PANEL potassium 4.3 mmol/ L 3.5-5. 3 normal Not Available [address], [address], 10/29/2021 12:12:31 10/29/19 22 10/29/2021 COMPR EHENS ABBY METAB OLIC PANEL chloride 105 mmol/ L 98-110 normal Not Available [address], [address], 10/29/2021 12:12:31 10/29/19 22 10/29/2021 COMPR EHENS ABBY METAB OLIC PANEL carbon dioxide 31 mmol/ L 20-32 normal Not Available [address], [address], 10/29/2021 12:12:31 10/29/19 22 10/29/2021 COMPR EHENS ABBY METAB OLIC PANEL calcium 9.6 mg/dL 8.6-10 .4 normal Not Available [address], [address], 10/29/2021 12:12:31 10/29/19 22 10/29/2021 COMPR EHENS ABBY METAB OLIC PANEL protein, total 6.8 g/dL 6.1-8. 1 normal Not Available [address], [address], 10/29/2021 12:12:31 10/29/19 22 10/29/2021 COMPR EHENS ABBY METAB OLIC PANEL albumin 4.2 g/dL 3.6-5. 1 normal Not Available [address], [address], 10/29/2021 12:12:31 10/29/19 22 10/29/2021 COMPR EHENS ABBY METAB OLIC PANEL globulin 2.6 g/dL_ (calc ) 1.9-3. 7 normal Not Available [address], [address], 10/29/2021 12:12:31 10/29/19 22 10/29/2021 COMPR EHENS ABBY METAB OLIC PANEL albumin/glob ulin ratio 1.6 (calc ) 1.0-2. 5 normal Not Available [address], [address], 10/29/2021 12:12:31 10/29/19 22 10/29/2021 COMPR EHENS ABBY METAB OLIC PANEL bilirubin, total 0.5 mg/dL 0.2-1. 2 normal Not Available [address], [address], 10/29/2021 12:12:31 10/29/19 22 10/29/2021 COMPR EHENS ABBY METAB OLIC PANEL alkaline phosphatase 99 U/L 37-153 normal Not Available [address], [address], 10/29/2021 12:12:31 10/29/19 22 10/29/2021 COMPR EHENS ABBY METAB OLIC PANEL AST 18 U/L 10-35 normal Not Available [address], [address], 10/29/2021 12:12:31 10/29/19 22 10/29/2021 COMPR EHENS ABBY METAB OLIC PANEL ALT 15 U/L 6-29 normal Not Available [address], [address], 10/29/2021 12:12:31 10/29/19 22 10/29/2021 LIPID PANEL , STAND JOSE ENRIQUE cholesterol, total 160 mg/dL <200 normal Not Available [address], [address], 10/29/2021 12:12:30 10/29/19 22 10/29/2021 LIPID PANEL , STAND JOSE ENRIQUE HDL cholesterol 49 mg/dL > or = 50 low Not Available [address], [address], 10/29/2021 12:12:30 10/29/19 22 10/29/2021 LIPID PANEL , STAND JOSE ENRIQUE triglyceride s 266 mg/dL <150 high If a non-f astin g speci men was colle cted, consi dheeraj repea t trigl yceri de testi ng on a fasti ng speci men if clini sam indic ated. Abhishek amezquita et al. J. of Clin. Lipid ol. 2015; 9:129 -169. Not Available [facility] [id number] [place] [address], [address], 10/29/2021 12:12:30 10/29/19 22 10/29/2021 LIPID PANEL [...] 310(1 9): 2061- 2068 (http ://ed ucati on.Metaresolver. com/f aq/FA Q164) Not Available [facility] [address] [place], [address], 10/29/2021 12:12:30 10/29/19 22 10/29/2021 LIPID PANEL , STAND JOSE ENRIQUE chol/HDLC ratio 3.3 (calc ) <5.0 normal Not Available [facility] [address] [facility] [place], [address], 10/29/2021 12:12:30 10/29/19 22 10/29/2021 LIPID PANEL , STAND JOSE ENRIQUE non HDL cholesterol 111 mg/dL _(roxie c) <130 normal For patie nts with diabe abby plus 1 major ASCVD risk facto r, treat ing to a non-H DL-C goal of <100 mg/dL (LDL- C of <70 mg/dL ) is consi dered a thera peuti c optio n. Not Available [facility] [address] [place], [address], 10/29/2021 12:12:30 02/26/2002/26/2022 HEMOG LOBIN A1C hemoglobin [...] diabe abby for child adebayo. Not Available [address] [place], [address], 02/26/2022 15:45:07 02/26/20 22 02/26/2022 TSH TSH 3.04 mIU/L 0.40-4 .50 normal Not Available [facility] [address] [address] [place], [address], 02/26/2022 15:45:07 02/26/20 22 02/26/2022 T4, FREE T4, free 1.1 NG/dL 0.8-1. 8 normal Not Available [facility] [address] [address] [place], [address], 02/26/2022 15:45:06 02/26/20 22 02/26/2022 ALBUM IN, RANDO M URINE W/CRE ATINI NE creatinine, random urine 67 mg/dL 20-275 normal Not Available [address] [address] [place], [address], 02/26/2022 15:45:06 02/26/20 22 02/26/2022 ALBUM IN, RANDO M URINE W/CRE ATINI NE albumin, urine 0.2 mg/dL see note: normal Refer ence Range : Refer ence Range Not estab lishe d Not Available [facility] [address] [address] [address], [place], [address], 02/26/2022 15:45:06 02/26/20 22 02/26/2022 ALBUM IN, [...] a diagn ostic categ ory. Not Available [facility] [address] [address] [facility] [place], [address], 02/26/2022 15:45:06 02/26/20 22 02/26/2022 COMPR EHENS ABBY METAB OLIC PANEL glucose 121 mg/dL 65-99 high Fasti ng refer ence inter aiden For someo ne witho ut known diabe abby, a gluco se value betwe en 100 and 125 mg/dL is consi stent with predi abete s and shoul d be confi rmed with a follo w-up test. Not Available [facility] [address] [address] , [place], [address], 02/26/2022 15:45:05 02/26/20 22 02/26/2022 COMPR EHENS ABBY METAB OLIC PANEL urea nitrogen (BUN) 12 mg/dL 7-25 normal Not Available [address] [address] [place], [address], 02/26/2022 15:45:05 02/26/20 22 02/26/2022 COMPR EHENS ABBY METAB OLIC PANEL creatinine 0.83 mg/dL 0.50-1 .05 normal Not Available [address] [address] [place], [address], 02/26/2022 15:45:05 02/26/20 22 02/26/2022 COMPR EHENS [...] kdoqi /gfr% 5Fcal culat or Not Available [address], [address], 02/26/2022 15:45:05 02/26/20 22 02/26/2022 COMPR EHENS ABBY METAB OLIC PANEL BUN/creatini ne ratio not applic able (calc ) 6-22 Not Available [address] [address] [place], [address], 02/26/2022 15:45:05 02/26/20 22 02/26/2022 COMPR EHENS ABBY METAB OLIC PANEL sodium 139 mmol/ L 135-14 6 normal Not Available [address], [address], 02/26/2022 15:45:05 02/26/20 22 02/26/2022 COMPR EHENS ABBY METAB OLIC PANEL potassium 4.5 mmol/ L 3.5-5. 3 normal Not Available [address] [address] [place], [address], 02/26/2022 15:45:05 02/26/20 22 02/26/2022 COMPR EHENS ABBY METAB OLIC PANEL chloride 103 mmol/ L 98-110 normal Not Available [address], [address], 02/26/2022 15:45:05 02/26/20 22 02/26/2022 COMPR EHENS ABBY METAB OLIC PANEL carbon dioxide 28 mmol/ L 20-32 normal Not Available [address], [address], 02/26/2022 15:45:05 02/26/20 22 02/26/2022 COMPR EHENS ABBY METAB OLIC PANEL calcium 9.4 mg/dL 8.6-10 .4 normal Not Available [address], [address], 02/26/2022 15:45:05 02/26/20 22 02/26/2022 COMPR EHENS ABBY METAB OLIC PANEL protein, total 6.7 g/dL 6.1-8. 1 normal Not Available [address], [address], 02/26/2022 15:45:05 02/26/20 22 02/26/2022 COMPR EHENS ABBY METAB OLIC PANEL albumin 4.0 g/dL 3.6-5. 1 normal Not Available [address], [address], 02/26/2022 15:45:05 02/26/20 22 02/26/2022 COMPR EHENS ABBY METAB OLIC PANEL globulin 2.7 g/dL_ (calc ) 1.9-3. 7 normal Not Available [address], [address], 02/26/2022 15:45:05 02/26/20 22 02/26/2022 COMPR EHENS ABBY METAB OLIC PANEL albumin/glob ulin ratio 1.5 (calc ) 1.0-2. 5 normal Not Available [address], [address], 02/26/2022 15:45:05 02/26/20 22 02/26/2022 COMPR EHENS ABBY METAB OLIC PANEL bilirubin, total 0.3 mg/dL 0.2-1. 2 normal Not Available [address], [address], 02/26/2022 15:45:05 02/26/20 22 02/26/2022 COMPR EHENS ABBY METAB OLIC PANEL alkaline phosphatase 90 U/L 37-153 normal Not Available [address], [address], 02/26/2022 15:45:05 02/26/20 22 02/26/2022 COMPR EHENS ABBY METAB OLIC PANEL AST 14 U/L 10-35 normal Not Available [address], [address], 02/26/2022 15:45:05 02/26/20 22 02/26/2022 COMPR EHENS ABBY METAB OLIC PANEL ALT 13 U/L 6-29 normal Not Available [address], [address], 02/26/2022 15:45:05 02/26/20 22 02/26/2022 LIPID PANEL , STAND JOSE ENRIQUE cholesterol, total 109 mg/dL <200 normal Not Available [address], [address], 02/26/2022 15:45:05 02/26/20 22 02/26/2022 LIPID PANEL , STAND JOSE ENRIQUE HDL cholesterol 34 mg/dL > or = 50 low Not Available [address], [address], 02/26/2022 15:45:05 02/26/20 22 02/26/2022 LIPID PANEL , STAND JOSE ENRIQUE triglyceride s 192 mg/dL <150 high Not Available [facility] [address] [place], [address], 02/26/2022 15:45:05 02/26/20 22 02/26/2022 LIPID PANEL [...] 2061- 2068 (http ://ed ucati on.Qu Majo BeneChill. com/f aq/FA Q164) Not Available [facility] [address] [place], [address], 02/26/2022 15:45:05 02/26/20 22 02/26/2022 LIPID PANEL , STAND JOSE ENRIQUE chol/HDLC ratio 3.2 (calc ) <5.0 normal Not Available [facility] [address] [place], [address], 02/26/2022 15:45:05 02/26/20 22 02/26/2022 LIPID PANEL , STAND JOSE ENRIQUE non HDL cholesterol 75 mg/dL _(roxie c) <130 normal For patie nts with diabe abby plus 1 major ASCVD risk facto r, treat ing to a non-H DL-C goal of <100 mg/dL (LDL- C of <70 mg/dL ) is consi dered a thera peuti c optio n. Not Available [facility] [address] [place], [address], 02/26/2022 15:45:05 09/03/19 23 09/14/2022 LIPID PANEL , STAND JOSE ENRIQUE cholesterol, total 130 mg/dL <200 normal Not Available [address], [address], 09/14/2022 15:23:05 09/03/19 23 09/14/2022 LIPID PANEL , STAND JOSE ENRIQUE HDL cholesterol 42 mg/dL > or = 50 low Not Available [address], [address], 09/14/2022 15:23:05 09/03/19 23 09/14/2022 LIPID PANEL , STAND JOSE ENRIQUE triglyceride s 150 mg/dL <150 high Not Available [address], [address], 09/14/2022 15:23:05 09/03/19 23 09/14/2022 LIPID PANEL [...] 2061- 2068 (http ://ed ucati on.Qu Majo lopezNexidia. com/f aq/FA Q164) Not Available [address], [address], 09/14/2022 15:23:05 09/03/19 23 09/14/2022 LIPID PANEL , STAND JOSE ENRIQUE chol/HDLC ratio 3.1 (calc ) <5.0 normal Not Available [address] [place], [address], 09/14/2022 15:23:05 09/03/19 23 09/14/2022 LIPID PANEL , STAND JOSE ENRIQUE non HDL cholesterol 88 mg/dL _(roxie c) <130 normal For patie nts with diabe abby plus 1 major ASCVD risk facto r, treat ing to a non-H DL-C goal of <100 mg/dL (LDL- C of <70 mg/dL ) is consi dered a thera peuti c optio n. Not Available [address] [address] [place], [address], 09/14/2022 15:23:05 09/03/19 23 09/14/2022 COMPR EHENS ABBY METAB OLIC PANEL glucose 258 mg/dL 65-99 high Fasti ng refer ence inter aiden For someo ne witho ut known diabe abby, a gluco se value >125 mg/dL indic ates that they may have diabe abby and this shoul d be confi rmed with a follo w-up test. Not Available [facility] [address] [place], [address], 09/14/2022 15:23:06 09/03/19 23 09/14/2022 COMPR EHENS ABBY METAB OLIC PANEL urea nitrogen (BUN) 11 mg/dL 7-25 normal Not Available [facility] [address] [place], [address], 09/14/2022 15:23:06 09/03/19 23 09/14/2022 COMPR EHENS ABBY METAB OLIC PANEL creatinine 0.87 mg/dL 0.50-1 .05 normal Not Available [facility] [address], [address], 09/14/2022 15:23:06 09/03/19 23 09/14/2022 COMPR EHENS [...] kdoqi /gfr% 5Fcal culat or Not Available [address] [place], [address], 09/14/2022 15:23:06 09/03/19 23 09/14/2022 COMPR EHENS ABBY METAB OLIC PANEL BUN/creatini ne ratio NOT APPLIC ABLE (calc ) 6-22 Not Available [address], [address], 09/14/2022 15:23:06 09/03/19 23 09/14/2022 COMPR EHENS ABBY METAB OLIC PANEL sodium 138 mmol/ L 135-14 6 normal Not Available [address], [address], 09/14/2022 15:23:06 09/03/19 23 09/14/2022 COMPR EHENS ABBY METAB OLIC PANEL potassium 4.7 mmol/ L 3.5-5. 3 normal Not Available [address], [address], 09/14/2022 15:23:06 09/03/19 23 09/14/2022 COMPR EHENS ABBY METAB OLIC PANEL chloride 103 mmol/ L 98-110 normal Not Available [address], [address], 09/14/2022 15:23:06 09/03/19 23 09/14/2022 COMPR EHENS ABBY METAB OLIC PANEL carbon dioxide 28 mmol/ L 20-32 normal Not Available [address], [address], 09/14/2022 15:23:06 09/03/19 23 09/14/2022 COMPR EHENS ABBY METAB OLIC PANEL calcium 9.6 mg/dL 8.6-10 .4 normal Not Available [address], [address], 09/14/2022 15:23:06 09/03/19 23 09/14/2022 COMPR EHENS ABBY METAB OLIC PANEL protein, total 7.2 g/dL 6.1-8. 1 normal Not Available [address], [address], 09/14/2022 15:23:06 09/03/19 23 09/14/2022 COMPR EHENS ABBY METAB OLIC PANEL albumin 4.3 g/dL 3.6-5. 1 normal Not Available [address], [address], 09/14/2022 15:23:06 09/03/19 23 09/14/2022 COMPR EHENS ABBY METAB OLIC PANEL globulin 2.9 g/dL_ (calc ) 1.9-3. 7 normal Not Available [address], [address], 09/14/2022 15:23:06 09/03/19 23 09/14/2022 COMPR EHENS ABBY METAB OLIC PANEL albumin/glob ulin ratio 1.5 (calc ) 1.0-2. 5 normal Not Available [address], [address], 09/14/2022 15:23:06 09/03/19 23 09/14/2022 COMPR EHENS ABBY METAB OLIC PANEL bilirubin, total 0.4 mg/dL 0.2-1. 2 normal Not Available [address], [address], 09/14/2022 15:23:06 09/03/19 23 09/14/2022 COMPR EHENS ABBY METAB OLIC PANEL alkaline phosphatase 97 U/L 37-153 normal Not Available [address] [address] [place], [address], 09/14/2022 15:23:06 09/03/19 23 09/14/2022 COMPR EHENS ABBY METAB OLIC PANEL AST 11 U/L 10-35 normal Not Available [address] [address] [place], [address], 09/14/2022 15:23:06 09/03/19 23 09/14/2022 COMPR EHENS ABBY METAB OLIC PANEL ALT 12 U/L 6-29 normal Not Available [address] [address] [place], [address], 09/14/2022 15:23:06 09/03/19 23 09/14/2022 ALBUM IN, RANDO M URINE W/CRE ATINI NE creatinine, random urine 21 mg/dL 20-275 normal Not Available [address] [address] [place], [address], 09/14/2022 15:23:06 09/03/19 23 09/14/2022 ALBUM IN, RANDO M URINE W/CRE ATINI NE albumin, urine <0.2 mg/dL see note: normal Refer ence Range : Refer ence Range Not estab lishe d Not Available [address], [address], 09/14/2022 15:23:06 09/03/19 23 09/14/2022 ALBUM IN, [...] a diagn ostic categ ory. Not Available [facility] [address] [place], [address], 09/14/2022 15:23:06 09/03/1909/14/2022 DEXAM ETHAS ONE dexamethason [...] for clini roxie purpo ses. Not Available [facility] [address] [address] [place], [address], 09/14/2022 15:23:07 09/03/1909/14/2022 T4, FREE T4, free 0.9 NG/dL 0.8-1. 8 normal Not Available [facility] [address] [address] [place], [address], 09/14/2022 15:23:08 09/03/1909/14/2022 TSH TSH 0.81 mIU/L 0.40-4 .50 normal Not Available [facility] [address] [address] [place], [address], 09/14/2022 15:23:08 09/03/1909/14/2022 CORTI NERI, A.M. cortisol, A.M. 1.4 mcg/d L low Refer ence Range 8 a.m. (7-9 a.m.) Speci men: 4.0-2 2.0 Not Available [address] [address] [place], [address], 09/14/2022 15:23:09 09/03/19 23 09/14/2022 HEMOG LOBIN [...] diabe abby for child adebayo. Not Available [address] [address] [place], [address], 09/14/2022 15:23:09 10/04/19 23 10/11/2022 ACTH, PLASM A acth, plasma 29 pg/mL 6-50 Refer ence range appli es only to speci mens colle cted betwe en 7am-1 0am. Not Available [facility] [address] [address] [place], [address], 10/12/2022 00:03:05 10/04/19 23 10/11/2022 CORTI NERI, FREE, 24 HOUR URINE total volume 1000 mL Not Available [facility] [address] [address] [place], [address], 10/12/2022 00:03:06 10/04/19 23 10/11/2022 CORTI NERI, FREE, 24 HOUR URINE cortisol, free, urine 12.1 mcg/2 4_h 4.0-50 .0 Not Available [facility] [address], [address], 10/12/2022 00:03:06 10/04/1910/11/2022 CORTI NERI, FREE, 24 HOUR URINE cortisol, free, urine 12.5 mcg/g _crea t Refer ence Range : ADULT S: 3.1-4 2.3 Not Available [facility] [address] [address] [place], [address], 10/12/2022 00:03:06 10/04/1910/11/2022 CORTI NERI, FREE, 24 [...] for clini roxie purpo ses. Not Available [facility] [address] [place], [address], 10/12/2022 00:03:06 10/04/1910/11/2022 CORTI NERI, LC/MS , SALIV A, 2 SAMPL ES draw date 1 023 Not Available [facility] [address] [address] [place], [address], 10/12/2022 00:03:06 10/04/1910/11/2022 CORTI NERI, LC/MS , SALIV A, 2 SAMPL ES draw time 1 2330 Not Available [facility] [address] [place], [address], 10/12/2022 00:03:06 10/04/19 23 10/11/2022 CORTI NERI, [...] for clini roxie purpo ses. Not Available [facility] [address] [place], [address], 10/12/2022 00:03:06 10/04/19 23 10/11/2022 CORTI NERI, LC/MS , SALIV A, 2 SAMPL ES draw date 2 023 Not Available [facility] [address] [place], [address], 10/12/2022 00:03:06 10/04/19 23 10/11/2022 CORTI NERI, LC/MS , SALIV A, 2 SAMPL ES draw time 2 2330 Not Available [facility] [address] [place], [address], 10/12/2022 00:03:06 10/04/19 23 10/11/2022 CORTI NERI, [...] for clini roxie purpo ses. Not Available [facility] [address] [place], [address], 10/12/2022 00:03:06 10/04/19 23 10/11/2022 CORTI NERI, A.M. cortisol, A.M. 20.0 mcg/d L normal Refer ence Range 8 a.m. (7-9 a.m.) Speci men: 4.0-2 2.0 Not Available [facility] [address] [place], [address], 10/12/2022 00:03:07 11/04/19 23 11/03/2022 CT, adren al, w/ wo contr ast No observ ation record ed. [email or web address] [facility] [address] [facility] [address], [place], [address], 11/14/2022 15:31:03 11/30/19 23 11/29/2022 MAMMO , scree aly, digit al, bilat eral No observ ation record ed. [email or web address] [facility] [address] [facility] [address], [place], [address], 12/09/2022 14:24:07 12/01/19 23 11/29/2022 bone densi ty No observ ation record ed. [email or web address] [facility] [address] [facility] [address], [place], [address], 11/30/2022 20:16:19 Result Notes None recorded. Problems Name Problem SNOMED Code Status Onset Date Resolution Date Notes Provider Name and Address Organization Details Recorded Time Uncontrolled type 2 diabetes mellitus 865540774 Active 2021 Not Available [facility] 3 01:55:21 Well controlled type 2 diabetes mellitus 847705392 Active 2022 Not Available [facility] 3 01:55:21 Dyslipidemia 101170322 Active 2022 Not Available [facility] 3 01:55:21 Menopausal and postmenopausa l disorders 644065242 Active 2022 Not Available [facility] 3 01:55:21 Weight gain 1020822 Active 2022 Not Available [facility] 3 01:55:21 Abnormal cortisol 482422260 Active 2022 Not Available [facility] 3 01:55:21 Adrenal adenoma 154407129 Active 2022 Not Available [facility] 3 01:55:21 Adrenal Nathalie's syndrome 028886599 Active 2022 Not Available [facility] 3 01:55:21 Problem Notes None recorded. Procedures Surgical History Date Name Laterality Status Provider Name and Address Organization Details Recorded Time Colonoscopy completed Not Available [facility] 06/22/2022 13:12:18 Imaging Results Imaging Date Name Status LastModified by Organiz ation Details LastModified Time 11/03/2022 CT, adrenal, w/ wo contrast completed [email or web address] [facility] [address] [facility] [address], [place], [address], 11/14/2022 15:31:03 11/29/2022 MAMMO, screening, digital, bilateral completed [email or web address] [address], [place], [address], 12/09/2022 14:24:07 11/29/2022 bone density completed [email or web address] [address], [place], [address], 11/30/2022 20:16:19 Procedure Notes None recorded. Medical [...] % 96 % 72 /min 97.7 [degF] 95853.7 7 g 120 mm[Hg] 82 mm[Hg] Not Available [facility] 3 13:12:33 Date Recorded Body mass index (BMI) Body height Oxygen saturation Oxygen saturation in Arterial blood by Pulse oximetry Heart rate Body temperature Body weight Systolic blood pressure Diastolic blood pressure Provider Name and Address Organization Details Last Updated DateTime 2 32.4 kg/m2 160.02 cm 99 % 99 % 79 /min 97.8 [degF] 93000.4 g 110 mm[Hg] 80 mm[Hg] Not Available [facility] 3 13:12:33 Date Recorded Body mass index (BMI) Body height Oxygen saturation Oxygen saturation in Arterial blood by Pulse oximetry Heart rate Body temperature Body weight Systolic blood pressure Diastolic blood pressure Provider Name and Address Organization Details Last Updated DateTime 2 32.9 kg/m2 160.02 cm 97 % 97 % 69 /min 97.8 [degF] 58074.1 8 g 110 mm[Hg] 75 mm[Hg] Not Available [facility] 3 13:12:33 Date Recorded Body height Body mass index (BMI) Body weight Body temperature Respiratory rate Heart rate Systolic blood pressure Diastolic blood pressure Provider Name and Address Organization Details Last Updated DateTime 3 160.02 cm 32.9 kg/m2 22094.4 6 g 97.3 [degF] 20 /min 95 /min 144 mm[Hg] 91 mm[Hg] ZA Grimes [place] [facility] [employer] [facility] 3 14:52:28 Social History Question Answer Notes LastModified by [employer] Details LastModified Time Tobacco Smoking Status Current Every Day Smoker Not Available [facility] 06/22/2022 13:12:14 What Is Your Level Of Caffeine Consumption? Moderate [id number] Information not available 06/22/2022 In The 14 Days Before Symptom Onset, Have You Had Close Contact With A Laboratory-confirm ed COVID-19 While That Case Was Ill? No [id number] Information not available 06/22/2022 In The 14 Days Before Symptom Onset, Have You Had Close Contact With A Person Who Is Under Investigation For COVID-19 While That Person Was Ill? No [id number] Information not available 06/22/2022 What Type Of Diet Are You Following? REGULAR [id number] Information not available 06/22/2022 What Is Your Relationship Status? [id number] Information not available 06/22/2022 Do You Use Your Seat Belt Or Car Seat Routinely? Yes [id number] Information not available 06/22/2022 How Much Tobacco Do You Smoke? 1 PPW MIGRATION.[id number] 8598 Information not available 06/22/2022 Have You Recently Traveled Abroad? No [id number] Information not available 06/22/2022 Do You Have Any Dietary Restrictions? No [id number].[id number] Information not available 06/22/2022 Sex: Female Functional Status Question Answer Note LastModified by Organizat ion Details LastModified Time Do you use any illicit or recreational drugs? No [id number] 26 Information not available 06/22/2022 What is your level of alcohol consumption? None [id number] 26 Information not available 06/22/2022 Mental Status None recorded. Family History Nothing Reported. Medical History Condition Response GI PROBLEMS Y USE OF BLOOD THINNERS Y HEART DISEASE/HEART PROBLEMS Y SKIN PROBLEMS Y DIABETES, TYPE LIVER DISEASE Y LUNG DISEASE/DISORDER COPD Y HIGH CHOLESTEROL / HYPERLIPIDEMIA Y EYE PROBLEMS Y CANCER: SPECIFY Y GERD/NAUSEA Y HAVE YOU BEEN HOSPITALIZED OR SEEN IN [facility] ER IN THE PAST YEAR ? Y STROKE/TIA Y Gynecological HistoryNo gynecological history recorded. Obstetrics History GPAL:G 0 P 0 0 0 0 Past Encounters Encounter ID Performer Location Encounter Start Date Encounter Closed Date Diagnosis/Indication Diagnosis SNOMED-CT Code Diagnosis ICD10 Code Diagnosis Note [id number] Yumiko Acosta MD [facility] [address] [place] [address] 05/31/2021 00:00:00 05/31/2021 14:06:32 [id number] Yumiko Acosta MD [facility] [address] [place] [address] 07/23/2021 00:00:00 07/23/2021 16:29:56 [id number] Yumiko Acosta MD [facility] [address] [place] [address] 12/28/2021 00:00:00 12/28/2021 13:59:46 [id number] MD MICHAEL Roberts [facility] [address] [place] [address] 08/09/2022 14:28:35 08/09/2022 15:17:25 Well controlled type 2 diabetes mellitus 573083447 E11.9 A1C of 6.8% down from 7.2%-carmen [...] DST to screen for hypercorti solism. Dyslipidemia 775756457 E 78.5 Continue statin therapy. Menopausal and postmenopausal disorders 710770624 N95.9 Send for bone density to screen for osteoporos is. Weight gain 9295522 R63. 5 Will send for low dose [...] n in the electronic health record, independen tly interpreti ng results and communicat ing results to the patient. RTC in 4 months. Patient was provided a handwritte n lab order which contains our fax number. If she chooses to go outside of the [facility] system to obtain labwork she was [...] [employer] Member ID Guarantor Name 08/09/2022 1 [facility] (MEDICARE REPLACEMENT/A DVANTAGE - HMO) [id number] Keyla Arreaga [id number] Keyla Arreaga Notes Date Note Type Note [...] her right ring finger removed- went to [place] we referred to Dr. De Souza. usually [...] 1.1 ng/mLmicroalbumin 3 ug/mgglucose 121 mg/dLCr normalLFT xattyg768/192/34/49 Yumiko Acosta MD [address] [facility], [facility] [address], [place], [address], [place] [employer] 08/09/2022 15:19:30 OBGyn Episode No OBEpisode recorded.
--- OUTSIDE RECORDS SUMMARY | 2024-09-09 14:20 | XMS_ITS | Encounter Summary ---
Author Organization [facility] Address [address] [place] [address] Care Team Providers Care Barrel Turner Name Role Phone Karan Ngo MD Unavailable Abdulkadir Craft MD Unavailable Carole Neal MD Unavailable [phone] Rohith Sen MD Primary Care Provider [phone] Encounter Details Date Type Department Care Team (Late st Contact Info) Description 11/17/2015 Abstract [facility] CONVERSION [address] [place], [place] [id number] , Olinda Polo MD Social History Tobacco [...] on filedocumented in this encounter Care Teams Barrel Turner Relationship Specialty Start Date End Date Rohith Sen MD [address] [place] [address] PCP - General FAMILY PRACTICE 02/03/23 Karan Ngo MD [address] [address] CARDIOVASCULAR DISEASE 01/29/21 [place] [address] [place] [address] Referring Physician RHEUMATOLOGY 01/29/21 Carole Neal MD [address] [place] [address] PULMONARY DISEASE 01/29/21 documented as of this encounter
[2024-09-09 20:19] LABS: Add Urine Microscopic? YES; Appearance Urine Clear (Clear); Bacteria Urine None Seen /hpf; Bilirubin Urine Negative (Negative); Blood Urine Negative (Negative); Color Urine Yellow (Yellow); Glucose Urine UA Negative (Negative); Ketones Urine Negative (Negative); Leukocyte Esterase Ur Trace LEU/UL (Negative); Nitrate Urine Negative (Negative); Non Pathogenic Casts 0-2; Protein Urine Negative (Negative); RBC Urine 0-2 /hpf (0-2); Specific Grav Ur 1.012 (1.001-1.035); Squamous Epithelial Cell Urine Few /hpf (Few); Urobilinogen Urine 0.2 mg/dL (<2.0); WBC Urine 0-5 /hpf (0-3)
== END 2024-09-09 14:17 | disposition home or self-care (01) ==
PROVIDERS: PCP Nurse Practitioner Adult Health; Visit Provider Nurse Practitioner Adult Health
DX: R39.9 Unspecified symptoms and signs involving the genitourinary system (principal)
CPT/HCPCS: 81001; 87077; 87086; 87186

== ENCOUNTER 2024-11-14 10:58 | Outpatient (CLI) | payer MEDICARE, SELFPAY ==
--- NOTE | ~2024-11-14 | XR_ITS ---
EXAM/PROCEDURE: XR chest 2V - 11/14/2024 11:00 CDT HISTORY: 68 years old Female with chronic cough, sob, hx of smoking TECHNIQUE: Two view(s) of the chest. COMPARISON: None available. FINDINGS: LUNGS/ PLEURA: No focal consolidation. No appreciable pneumothorax or large pleural effusion. HEART/ MEDIASTINUM: Heart appears normal in size. BONES: No acute osseous abnormality. OTHER: Visualized upper abdomen is unremarkable. IMPRESSION: No acute process. Reviewed, dictated and finalized at location A. IMPRESSION: No acute process.
--- OUTSIDE RECORDS SUMMARY | 2024-11-14 11:04 | XMS_ITS | Clinical Summary ---
Author Organization [facility] Address [address] [place] [address] Care Team Providers Care Airplane Captain Name Role Phone Karan Ngo MD Unavailable Abdulkadir Craft MD Unavailable Carole Neal MD Unavailable [phone] Rohith Sen MD Primary Care Provider [phone] Allergies Active Allergy Reactions Criticality Noted Date [...] 1:01 PM CDT Height 160 cm (5' 3) 01/29/2021 1:01 PM CDT Body Mass Index [...] patient's age to complete this topic Insurance [facility] Care Teams Airplane Captain Relationship Specialty Start Date End Date Rohith Sen MD [address] [place] [address] PCP - General FAMILY PRACTICE 02/03/23 Karan Ngo MD [address] [facility] [address] [place] [address] CARDIOVASCULAR DISEASE 01/29/21 [place] [address] [place] [address] Referring Physician RHEUMATOLOGY 01/29/21 Carole Neal MD [address] [place] [address] PULMONARY DISEASE 01/29/21
--- OUTSIDE RECORDS SUMMARY | 2024-11-14 11:04 | XMS_ITS | Encounter Summary ---
Author Organization [facility] Address [address] [place] [address] Care Team Providers Care Industrial Controls Technician Name Role Phone Karan Ngo MD Unavailable Abdulkadir Craft MD Unavailable Carole Neal MD Unavailable [phone] Rohith Sen MD Primary Care Provider [phone] Encounter Details Date Type Department Care Team (Late st Contact Info) Description 01/30/[address] [facility] [place] [id number] Maximo Jones MD [address] [facility] [place], [place] [id number] Social History Tobacco Use Types Packs/Day Years [...] Arthritis RA, osteoarthritis, psoriatric arthritis ??? 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 Colitis ??? COPD (chronic obstructive pulmonary disease) ([facility]) ??? Coronary artery disease ??? 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 Diabetes mellitus ([facility]) ??? Diverticulitis ??? Emphysema lung ([facility]) ??? MVP (mitral valve prolapse) ??? Neuropathy feet ??? On supplemental oxygen by nasal cannula 4L O2 PRN ??? Seizure ([facility]) patient unsure about this ??? Stroke ([facility]) possible TIA? Allergies: Allergies Allergen Reactions ??? [...] on filedocumented in this encounter Care Teams Industrial Controls Technician Relationship Specialty Start Date End Date Rohith Sen MD [address] [place] [id number] PCP - General FAMILY PRACTICE 02/03/23 Karan Ngo MD [address] [facility] [address] [place] [address] CARDIOVASCULAR DISEASE 01/29/21 [place] [address] [place] [address] Referring Physician RHEUMATOLOGY 01/29/21 Carole Neal MD [address] [place] [address] PULMONARY DISEASE 01/29/21 documented as of this encounter
--- OUTSIDE RECORDS SUMMARY | 2024-11-14 11:04 | XMS_ITS | Encounter Summary ---
Author Organization [facility] Address [address] [place] [address] Phone Care Team Providers Care Machine Milker Name Role Phone Karan Ngo MD Unavailable Gin Wilson MD Primary Care Provider Gin Wilson MD Primary Care Provider Rohith Sen MD Primary Care Provider [phone] Beatriz Cuevas NP Primary Care Provider [phone] Encounter Details Date Type Department Care Team (Late st Contact Info) Description 09/30/2020 Orders Only [facility] Scanning, Provider Social History Tobacco Use Types Packs/Day Years Used Date Smoking Tobacco: Every Day Cigarettes 0.8 50 Smokeless Tobacco: Never Comments:2 Cigs a Day Alcohol Use Standard Drinks/Week Comments No 0 (1 standard drink = 0.6 oz pur e alcohol) Comments No Sex and Gender Information Value Date Recorded Sex Assigned at Not on file Legal Sex Female 1:49 PM CERAMICS INSTRUCTOR Gender Identity Not on file Sexual Orientation [...] CDT COVID19 02/19/2021 02/19/2021 03/05/2021 3:05 AM CERAMICS INSTRUCTOR COVID: Recovered Comment:Added based on recent COVID infection. 03/05/2021 06/08/2021 07/03/2021 3:[address] COVID: Suspected 11/03/2024 11/03/2024 11/03/2024 12:41 PM CDT COVID: Suspected 11/05/2024 11/05/2024 11/05/2024 1:53 PM CDT documented as of this encounter Care Teams Machine Milker Relationship Specialty Start Date End Date Gin Wilson MD [address] [place] [address] PCP - General Family Practice 06/19/19 01/31/21 Gin Wilson MD [address] [place] [address] [place] [address] PCP - General Family Practice 02/01/21 12/04/23 Rohith Sen MD [address] [place] [address] [place] [address] PCP - General Family Practice 12/05/23 10/01/24 Beatriz Cuevas NP [address] [place] [address] PCP - General Nurse Practitioner 10/02/24 Karan Ngo MD [address] [place], [place] [id number] Consulting Physician Cardiology 11/02/18 documented as of this encounter
--- OUTSIDE RECORDS SUMMARY | 2024-11-14 11:04 | XMS_ITS | Clinical Summary ---
Author Organization [facility] – [place] [address] Address [address] [place] [address] Care Team Providers Care Polisher Brass Name Role Phone Karan Ngo MD Unavailable Beatriz Cuevas NP Primary Care Provider [phone] Allergies Active Allergy Reactions Criticality Noted Date Comments Canagliflozin Other (See comments) Low 04/05/2017 pancreatitis Invokana Meloxicam Other (See comments) Low 01/29/2021 pancreatitis Meperidine Other (See comments),Hives,Swelling Medium 06/12/2015 Swelling in mouth, hard to swollow Reaction: anaphylaxis, Metformin Diarrhea Low 07/10/2018 Methotrexate Other (See comments) Low 06/12/2015 pancreatitis Reaction: pancreatitis, pancreatitis pancreatitis Medications aspirin 81 mg tabletIndication s:prevention of thrombosis Take 1 tablet (81 mg total) by mouth daily 11 12/25/19 17 Active ergocalciferol (VITAMIN D) 50,000 unit capsuleIndicatio [...] Indications: type 2 diabetes mellitus, Reported on 11/05/2024 ipratropium-albu teroL (DUO-NEB) 0.5-2.5 mg/3 mL nebulizer solutionIndicati ons:Chronic Obstructive Pulmonary Disease with Bronchospasms Take 3 mL by nebulization every 6 (six) hours 180 mL 1 10/13/19 21 Active traMADoL (ULTRAM) 50 mg tablet TAKE 1-2 TABLETS BY MOUTH WITH OTC TYLEONOL THREE TIMES DAILY NEEDED FOR PAIN 10/28/19 22 Active nitroglycerin (NITROSTAT) 0.4 mg SL tabletIndication [...] 24 hr tabletIndication s:Coronary artery disease of [place] artery of [place] heart with stable angina pectoris TAKE 1 TABLET BY MOUTH EVERY DAY 90 tablet 3 01/17/20 24 Active ezetimibe (ZETIA) 10 mg tablet Take 1 tablet (10 mg total) by mouth daily 30 tablet 11 01/17/20 24 025 Active rosuvastatin (CRESTOR) 40 mg tablet TAKE 1 TABLET BY MOUTH EVERY DAY AT NIGHT 90 tablet 3 01/25/20 24 Active carvediloL (COREG) 3.125 mg tablet Take 1 tablet (3.125 mg total) by mouth 2 (two) times a day with meals 180 tablet 1 05/06/19 25 Active clopidogreL (PLAVIX) 75 mg tablet TAKE 1 TABLET BY MOUTH EVERY DAY 90 tablet 1 08/28/19 25 Active lisinopriL (PRINIVIL,ZESTRI L) 5 mg tablet TAKE 1 TABLET (5 MG TOTAL) BY MOUTH DAILY. 90 tablet 1 08/28/19 25 Active glycopyrrolate-f ormoteroL (BEVESPI AEROSPHERE) 9-4.8 mcg inhaler Inhale 2 puffs 2 (two) times a day 1 each 11/08/19 25 Active predniSONE (DELTASONE) 10 mg tabletIndication s:COPD Exacerbation Take 4 tablets (40 mg) by mouth daily for 1 day, THEN 3 tablets (30 mg) daily for 3 days, THEN 2 tablets (20 mg) daily for 3 days, THEN 1 tablet (10 mg) daily for 3 days, THEN 0.5 tablets (5 mg) daily for 3 days. 24 tablet 11/09/19 25 025 Active nicotine (NICODERM CQ) [address] 1 patch on the skin daily for 24 hours 30 patch 2 11/08/19 25 025 Active varenicline tartrate (CHANTIX JUAN C) 0.5 mg (11)- 1 mg (42) tablet Take 0.5 mg by mouth 2 (two) times a day 53 tablet 11/08/19 25 025 Active cefuroxime (CEFTIN) 500 mg tablet Take 1 tablet (500 mg total) by mouth 2 (two) times a day for 7 days 14 tablet 11/04/19 25 025 predniSONE (DELTASONE) 20 mg tablet Take 2 tablets (40 mg) by mouth daily for 5 days 10 tablet 11/04/19 25 025 Discontin ued(Stop Taking at Discharge ) azithromycin (ZITHROMAX) 500 mg tabletIndication s:COPD Exacerbation Take 1 tablet (500 mg total) by mouth daily for 1 dose 1 tablet 11/09/19 25 025 Active Problems Problem Noted Date Diagnosed Date COPD exacerbation ([facility]) 10/10/2020 Acute on chronic respiratory failure with hypoxe brian 10/10/2020 Pancreatic cyst 03/23/2020 Type 2 diabetes mellitus wit h hyperglycemia, with long-term current use of insulin 03/16/2020 Assessment & Plan (03/16/2020 2:22 PM FRONT SIGHT ATTACHER): Diagnosed in 2013- Had recurrent pancreatitis. Started [...] 03/16/2020 Assessment & Plan (03/16/2020 2:23 PM FRONT SIGHT ATTACHER): Complicated with CAD Controlled with medication - [...] (11/02/2018): Added automatically from request for surgery [id number] Assessment & Plan (12/11/2018 5:10 PM CDT): [...] Encounters Date Type Department Care Team Description 11/05/2024 12:50 PM CDT - 11/07/2024 11:10 AM CDT Hospital Encounter [facility] Acute Medicine [address] [place] [address] Ruba Pratt MD COPD exacerbation (HCC) (Primary Dx) Discharge Disposition: Discharge to home or self care 11/03/2024 11:39 AM CDT - 11/03/2024 1:05 PM CDT Emergency [facility] Emergency Department 1 [place] [address] Imer Chang MD COPD exacerbation (HCC) (Primary Dx) Discharge Disposition: Discharge to home or self care 10/02/2024 11:30 AM CDT Office [address] [facility] [address] [place] [address] Karan Ngo MD Palpitations (Primary Dx); Coronary artery disease of [place] artery of [place] heart with stable angina pectoris; History of non-ST elevation myocardial infarction (NSTEMI); Status post angioplasty with stent; Hypertension associated with diabetes (HCC); Lipid screening; Tobacco abuse 10/02/2024 10:30 AM CDT Ancillary Procedure [facility] [address] [place] [address] Palpitations from Last 3 Months Surgical History Surgery [...] x feb 2018 last 2 placed / 2016 COPD (chronic obstructive pu lmonary disease) (HCC) [...] Types Packs/Day Years Used Date Smoking Tobacco: Some Days Cigarettes 0.8 50 Smokeless Tobacco: Never Tobacco Cessation:Ready to Q uit: Not Asked; Counseling Given: Not Answered Comments:2 Cigs a Day Alcohol Use Standard Drinks/Week Comments No 0 (1 standard drink = 0.6 oz pur e alcohol) [facility] Utilities Answer Date Recorded In the past 12 months has [employer], oil, or water Neighborhoods threatened to shut off services in your home? No 11/06/2024 Social Connection and Isolat ion Panel [NHANES] Answer Date Recorded In a typical week, how many times do you talk on the phone with family, friends, or neighbors? More than three times a week 11/06/2024 How often do you get togethe r with friends or relatives? More than three times a week 11/06/2024 How often do you attend [facility] or [facility] services? More than 4 times per year 11/06/2024 Do you belong to any clubs o r organizations such as temple groups, unions, fraternal or athletic groups, or school groups? No 11/06/2024 How often do you attend meet ings of the clubs or organizations you belong to? Never 11/06/2024 Are you , , di vorced, , never , or living with a partner? 11/06/2024 AUDIT-C Answer Date Recorded Q1: How often do you have a drink containing alcohol? Never 11/05/2024 Q2: How many drinks containi ng alcohol do you have on a typical day when you are drinking? Patient does not drink Q3: How often do you have si x or more drinks on one occasion? Never 11/05/2024 Overall Financial Resource Strain (CARDIA) Answe r Date Recorded How hard is it for you to pa y for the very basics like food, housing, medical care, and heating? Hard 11/06/2024 Hunger Vital Sign Answer Date Recorded Within the past 12 months, y ou worried that your food would run out before you got the money to buy more. Sometimes true Within the past 12 months, t he food you bought just didn't last and you didn't have money to get more. Sometimes true PRAPARE - Transportation Answer Date Re corded In the past 12 months, has l ack of transportation kept you from medical appointments or from getting medications? No 10/22 In the past 12 months, has l ack of transportation kept you from meetings, work, or from getting things needed for daily living? No 11/06/2024 Housing Stability Vital Sign Answer Robbin e Recorded In the last 12 months, was t here a time when you were not able to pay the mortgage or rent on time? No 11/06/2024 In the past 12 months, how m any times have you moved where you were living? 0 11/06/2024 At any time in the past 12 m [facility], were you homeless or living in a long term (including now)? No 11/06/2024 Personal Safety Answer Date Recorded Have you ever been in or are you currently in a harmful physical or emotional relationship or is someone making you feel afraid or unsafe? Denies 11/05/2024 Comments No Sex and Gender Information Value Date Recorded Sex Assigned at Not on file Legal Sex Female 1:49 PM FRONT SIGHT ATTACHER Gender Identity Not on file Sexual Orientation Not on file Obstetrics History Last Filed Vital Signs Vital Sign Reading Time Taken Comments Blood Pressure 147/73 11/07/2024 7:27 AM CDT Pulse 57 11/07/2024 7:27 AM CDT Temperature 36.3 C (97.3 F) 11/07/2024 7:27 AM CDT Respiratory Rate 16 11/07/2024 7:27 AM CDT Oxygen Saturation 95% 11/07/2024 7:27 AM CDT Inhaled Oxygen Concentration - - Weight 84.9 kg (187 lb 1.6 oz) 11/05/2024 4:25 P M CDT Height 160 cm (5' 3) 11/05/2024 4:25 PM CDT Body Mass Index 33.14 11/05/2024 4:25 PM CDT Plan of Treatment Health Maintenance [...] Exam 02/07/2020 02/06/2019 Hemoglobin A1C 09/13/2020 03/16/2020, 05/2 12/2019, 04/26/2019, Additional history exists Foot Exam 09/19/2020 09/20/2019, 07/10/2018 Well Visit 65+ 2021 Influenza Vaccine (#1) 2024 Lipid Panel 10/02/2025 10/02/2024, 11/22, 12/16/2021, Additional history exists eGFR 11/05/2025 11/05/2024, 10/22, 11/03/2024, Additional history exists Fall Risk Assessment 11/07/2025 11/07/2024, 06/28/19 19 Medical Devices Implanted Type Area Sericulture Teacher Device Identifier Shelf Expiration Date Model / Serial / Lot System Coronary Stent Synergy Pebax Everolimus Eluting [place] Chromium Plga L12 Mm L144 Cm Od2.25 Mm Radiopaque 1 Access Port Inflation Lumen Accepts .014 In Guidewire - [id number] Implanted:Qty: 1 on 04/06/2017 by Karan Ngo MD at [facility] [employer] [facility] 12/19/2017 [id number] / / [id number] Procedures Procedure Name Priority Date/Time Associated Diagnosis Comments POCT GLUCOSE DEVICE Routine 11/07/2024 7 :34 AM CDT POCT GLUCOSE DEVICE Routine 11/07/2024 1 :57 AM CDT POCT GLUCOSE DEVICE Routine 11/06/2024 7 :34 PM CDT POCT GLUCOSE DEVICE Routine 11/06/2024 4 :31 PM CDT POCT GLUCOSE DEVICE Routine 11/06/2024 1 1:12 AM CDT POCT GLUCOSE DEVICE Routine 11/06/2024 7 :36 AM CDT POCT GLUCOSE DEVICE Routine 11/06/2024 2 :13 AM CDT POCT GLUCOSE DEVICE Routine 11/05/2024 1 1:17 PM CDT POCT GLUCOSE DEVICE Routine 11/05/2024 8 :08 PM CDT POCT GLUCOSE DEVICE Routine 11/05/2024 7 :25 PM CDT TROPONIN T HIGH-SENSITIVITY 6-HOUR Timed 11/05/2024 6:25 PM CDT POCT GLUCOSE DEVICE Routine 11/05/2024 5 :22 PM CDT EGFR Routine 11/05/2024 4:52 PM CDT CBC WITHOUT DIFFERENTIAL Routine 025 4:52 PM CDT COMPREHENSIVE METABOLIC PANEL Routine 11/05/2024 4:52 PM CDT TROPONIN T HIGH-SENSITIVITY 4-HR Timed 11/05/2024 4:52 PM CDT TROPONIN T HIGH-SENSITIVITY 2-HOUR Timed 11/05/2024 3:08 PM CDT BLOOD GAS, VENOUS STAT 11/05/2024 2:2 4 PM CDT INFLUENZA A/B, RSV, AND COVID-19 PCR STAT 11/05/2024 1:12 PM CDT XR CHEST 1 VIEW ED 11/05/2024 1:11 PM CDT EGFR STAT 11/05/2024 12:59 PM CDT DIFFERENTIAL AUTO STAT 11/05/2024 12: 59 PM CDT TROPONIN T HIGH-SENSITIVITY SERIES (BASELINE, 2HR, 4HR, 6HR) STAT 11/05/2024 12:59 PM CDT PRO B-TYPE NATRIURETIC PEPTIDE STAT 11/05/2024 12:59 PM CDT COMPREHENSIVE METABOLIC PANEL STAT 11/05/2024 12:59 PM CDT CBC WITH AUTO DIFFERENTIAL STAT 11/05/2024 12:59 PM CDT ECG 12-LEAD Routine 11/05/2024 12:54 PM CDT ECG 12-LEAD STAT 11/03/2024 11:55 AM CDT XR CHEST 1 VIEW ED 11/03/2024 11:53 AM CDT INFLUENZA A/B, RSV, AND COVID-19 PCR STAT 11/03/2024 11:47 AM CDT EGFR STAT 11/03/2024 11:45 AM CDT DIFFERENTIAL AUTO STAT 11/03/2024 11: 45 AM CDT PRO B-TYPE NATRIURETIC PEPTIDE STAT 11/03/2024 11:45 AM CDT TROPONIN T HIGH-SENSITIVITY SERIES (BASELINE, 2HR, 4HR, 6HR) Routine 11/03/2024 11:45 AM CDT BLOOD GAS, VENOUS STAT 11/03/2024 11: 45 AM CDT SEPSIS LACTATE WITH REFLEX STAT 11/03/2024 11:45 AM CDT COMPREHENSIVE METABOLIC PANEL STAT 11/03/2024 11:45 AM CDT CBC WITH AUTO DIFFERENTIAL STAT 11/03/2024 11:45 AM CDT MCT - MOBILE CARDIAC TELEMETRY EVENT MONITOR Routine 10/02/2024 12:05 PM CDT Palpitations POCT LIPID PANEL Routine 10/02/2024 10:5 9 AM CDT Lipid screening ELECTROCARDIOGRAM REPORT Routine 10/02/2024 Coronary artery disease of [place] artery of [place] heart with stable angina pectoris POCT HEMOGLOBIN A1C Routine 03/16/2020 2 :10 PM FRONT SIGHT ATTACHER Type 2 diabetes mellitus with hyperglycemia, with long-term current use of insulin ([facility]) DIABETES EYE EXAM Routine 02/06/2019 from Last 3 Months or Most Recently Relevant to Health Maintenance Results * (ABNORMAL) POCT glucose (11/07/2024 7:34 AM CDT) Glucose, POC 235(H) 70 - 199 mg/dL Blood 11/07/2024 7:34 AM CDT 11/07/2024 7:34 AM CDT us Ruba Pratt MD LAB POCT ORDERABLES - DEVICE Final Result Performing Organization Address City/[facility] Co de Phone Number AUSTIN CUELLAR ([place]) 1 [facility] [place] [address] * (ABNORMAL) POCT glucose (11/07/2024 1:57 AM CDT) Glucose, POC 201(H) 70 - 199 mg/dL Blood 11/07/2024 1:57 AM CDT 11/07/2024 1:57 AM CDT us Ruba Pratt MD LAB POCT ORDERABLES - DEVICE Final Result Performing Organization Address [facility] Co de Phone Number AUSTIN CUELLAR ([place]) 1 [facility] [place] [address] * (ABNORMAL) POCT glucose (11/06/2024 7:34 PM CDT) Glucose, POC 282(H) 70 - 199 mg/dL Blood 11/06/2024 7:34 PM CDT 11/06/2024 7:34 PM CDT us Ruba Pratt MD LAB POCT ORDERABLES - DEVICE Final Result Performing Organization Address City/[facility]/[place] Co de Phone Number AUSTIN CUELLAR ([place]) 1 [facility] [place] [address] * (ABNORMAL) POCT glucose (11/06/2024 4:31 PM CDT) Glucose, POC 253(H) 70 - 199 mg/dL Blood 11/06/2024 4:31 PM CDT 11/06/2024 4:31 PM CDT Ruba Pratt MD LAB POCT ORDERABLES - DEVICE Final Result Performing Organization Address City/[facility]/ZIP Co de Phone Number AUSTIN CUELLAR ([place]ISH) 1 [facility] [place] [address] * (ABNORMAL) POCT glucose (11/06/2024 11:12 AM CDT) Glucose, POC 214(H) 70 - 199 mg/dL Blood 11/06/2024 11:1 2 AM CDT 11/06/2024 11:12 AM CDT us Ruba Pratt MD LAB POCT ORDERABLES - DEVICE Final Result Performing Organization Address [facility]/[place] Co de Phone Number AUSTIN CUELLAR ([place]) 1 [facility] [place] [address] * (ABNORMAL) POCT glucose (11/06/2024 7:36 AM CDT) Glucose, POC 229(H) 70 - 199 mg/dL Blood 11/06/2024 7:36 AM CDT 11/06/2024 7:36 AM CDT us Ruba Pratt MD LAB POCT ORDERABLES - DEVICE Final Result Performing Organization Address [facility]/ZIP Co de Phone Number AUSTIN CUELLAR ([place]) 1 [facility] [place] [address] * (ABNORMAL) POCT glucose (11/06/2024 2:13 AM CDT) Glucose, POC 317(H) 70 - 199 mg/dL Blood 11/06/2024 2:13 AM CDT 11/06/2024 2:13 AM CDT us Ruba Pratt MD LAB POCT ORDERABLES - DEVICE Final Result [facility]IN CUELLAR ([place]) 1 [facility] [place] [address] * (ABNORMAL) POCT glucose (11/05/2024 11:17 PM CDT) Glucose, POC 362(H) 70 - 199 mg/dL Blood 11/05/2024 11:1 7 PM CDT 11/05/2024 11:17 PM CDT Ruba Pratt MD LAB POCT ORDERABLES - DEVICE Final Result Performing Organization Address City/[facility]/ZIP Co de Phone Number AUSTIN CUELLAR ([place]) 1 [facility] [place] [address] * (ABNORMAL) POCT glucose (11/05/2024 8:08 PM CDT) Glucose, POC 338(H) 70 - 199 mg/dL Blood 11/05/2024 8:08 PM CDT 11/05/2024 8:08 PM CDT us Rbua Pratt MD LAB POCT ORDERABLES - DEVICE Final Result Performing Organization Address [facility]/[place] Co de Phone Number AUSTIN CUELLAR ([place]) 1 [facility] [place] [address] * (ABNORMAL) POCT glucose (11/05/2024 7:25 PM CDT) Glucose, POC 389(H) 70 - 199 mg/dL Blood 11/05/2024 7:25 PM CDT 11/05/2024 7:25 PM CDT Ruba Pratt MD LAB POCT ORDERABLES - DEVICE Final Result Performing Organization Address City/[facility]/[place] Co de Phone Number AUSTIN CUELLAR ([place]) 1 [facility] [place] [address] * Troponin T high-sensitivity 6-hour (11/05/2024 6:25 PM CDT) Trop T hs 8 <=14 ng/L [facility] ([place]) Comment: Interpretive Data For further hscTnT resources including the diagnostic algorithm and an aid in interpretation, copy and paste this link: https://nrl.testev-social.org/show/hsTrop Current Interpretive Data last revised 2020. Trop T hs delta -2 ng/L [facility] ([place]) Trop T hs interp Insignificant [facility] ([place]) Blood 11/05/2024 6:25 PM CDT 11/05/2024 6:30 PM CDT us Kaley ARIZMENDI LAB BLOOD ORDERABLES Tanika l Result [facility]IN CUELLAR ([place]) 1 [facility] Department [place] [address] * (ABNORMAL) POCT glucose (11/05/2024 5:22 PM CDT) Glucose, POC 247(H) 70 - 199 mg/dL Blood 11/05/2024 5:22 PM CDT 11/05/2024 5:22 PM CDT Ruba Pratt MD LAB POCT ORDERABLES - DEVICE Final Result AUSTIN CUELLAR ([place]) 1 [facility] [place] [address] * Troponin T high-sensitivity 4-hour (11/05/2024 4:52 PM CDT) Trop T hs 7 <=14 ng/L [facility] ([place]) Comment: Interpretive Data For further hscTnT resources including the diagnostic algorithm and an aid in interpretation, copy and paste this link: https://nrl.testev-social.org/show/hsTrop Current Interpretive Data last revised 2020. Trop T hs delta -3 ng/L [facility] ([place]) Trop T hs interp Insignificant [facility] ([place]) Blood 11/05/2024 4:52 PM CDT 11/05/2024 5:09 PM CDT Kaley ARIZMENDI LAB BLOOD ORDERABLES Tanika l Result AUSTIN CUELLAR ([place]ISH) 1 [facility] [employer] [place] [address] * eGFR (11/05/2024 4:52 PM CDT) eGFR 81 >=60 mL/min/1. 73 m2 Comment: Interpretive Data Reference Interval Normal >/= [...] interpretive data was last reviewed 2021. Blood 11/05/2024 4:52 PM CDT 11/05/2024 5:09 PM CDT Kaley ARIZMENDI LAB BLOOD ORDERABLES Tanika l Result AUSTIN CUELLAR ([place]) 1 [facility] Department [place] [address] * (ABNORMAL) CBC without differential (11/05/2024 4:52 PM CDT) Pathologist [facility] WBC 7.70 3.80 - 9.90 K/cumm Hgb 12.3 11.9 - 15.5 g/dL AUSTIN CUELLAR ([place]) Hct 38.5 35.6 - 45.5 % [facility] ([place]) Plt 166 150 - 400 K/cumm [facility] ([place]) MPV 10.4 9.1 - 12.3 fL [facility] ([place]) RBC 4.19 3.90 - 5.20 M/cumm [facility] ([place]) MCV 91.9 81.3 - 96.4 fL [facility] ([place]) MCH 29.4 27.1 - 33.3 pg [facility] ([place]) MCHC 31.9(L) 32.3 - 35.7 g/dL [facility] ([place]) RDW CV 14.9 11.1 - 14.9 % [facility] ([place]) RDW SD 51.0(H) 35.7 - 48.1 fL [facility] ([place]) NRBC abs 0.00 0.00 - 0.01 K/cumm [facility] ([place]) Blood 11/05/2024 4:52 PM CDT 11/05/2024 5:09 PM CDT us Kaley ARIZMENDI LAB BLOOD ORDERABLES Tanika l Result [facility] ([place]) 1 [facility] Department [place] [address] * (ABNORMAL) Comprehensive metabolic panel (11/05/2024 4:52 PM CDT) Sodium 138 135 - 145 mmol/L [facility] Potassium, pl 4.0 3.3 - 4.9 mmol/L [facility] ([place]) Chloride 100 97 - 110 mmol/L [facility] ([place]) CO2 22 22 - 32 mmol/L [facility] ([place]) Anion gap 16(H) 2 - 15 mmol/L [facility] ([place]) BUN 20 6 - 25 mg/dL [facility] ([place]) Creatinine 0.80 0.60 - 1.10 mg/dL [facility] ([place]) Glucose 341(H) 70 - 199 mg/dL [facility] ([place]) Comment: Interpretive Data Fasting glucose >/= 126 mg/dl is diagnostic for diabetes. Fasting is defined as no caloric intake for at least 8 hours. Fasting glucose between 100 mg/dl to 125 mg/dl is diagnostic of prediabetes. In a patient with classic symptoms of hyperglycemia or hyperglycemic crisis, a random glucose >/= 200 mg/dl is diagnostic for diabetes. In the absence of unequivocal hyperglycemia, results should be confirmed by repeat testing. The classification and Diagnosis of Diabetes Diabetes Care 2021; 46: S19-S40. Current interpretive data was last revised 2022. Calcium 9.1 8.5 - 10.3 mg/dL [facility] ([place]) Bilirubin, total 0.3 0.1 - 1.2 mg/dL [facility] ([place]) Protein, pl 7.6 6.5 - 8.5 g/dL [facility] ([place]) Albumin 4.2 3.5 - 5.0 g/dL [facility] ([place]) Alk phos 98 40 - 130 Units/L [facility] ([place]) ALT 28 7 - 45 Units/L [facility] ([place]) AST 34 10 - 45 Units/L [facility] ([place]) Blood 11/05/2024 4:52 PM CDT 11/05/2024 5:09 PM CDT Kaley ARIZMENDI LAB BLOOD ORDERABLES Tanika l Result [facility] 1 [facility] Department [place] [address] * Troponin T high-sensitivity 2-hour (11/05/2024 3:08 PM CDT) Trop T hs 9 <=14 ng/L [facility] ([place]) Comment: Interpretive Data For further hscTnT resources including the diagnostic algorithm and an aid in interpretation, copy and paste this link: https://nrl.testcatalog.org/show/hsTrop Current Interpretive Data last revised 2020. Trop T hs delta -1 ng/L [facility] ([place]) Trop T hs interp Insignificant [facility] ([place]) Blood 11/05/2024 3:08 PM CDT 11/05/2024 3:12 PM CDT Kaley ARIZMENDI LAB BLOOD ORDERABLES Tanika l Result Performing Organization Address [facility]/[place] Co de Phone Number AUSTIN CUELLAR ([place]) 1 [facility] [place] [address] * Blood gas, venous (11/05/2024 2:24 PM CDT) pH, Venous 7.32 7.32 - 7.43 PCO2, Venous 49 40 - 50 mmHg [facility] ([place]) PO2, Venous 86 mmHg [facility] ([place]) HCO3 Venous, Calculated 25 20 - 30 mmol/L [facility] ([place]) BE, venous -1 mmol/L [facility] ([place]) Comment: Interpretive Data No Reference Range Established Current Interpretive Data was last revised on 2017. Blood 11/05/2024 2:24 PM CDT 11/05/2024 2:30 PM CDT Kaley ARIZMENDI LAB BLOOD ORDERABLES Tanika l Result Performing Organization Address [facility]/[place] Co de Phone Number [facility] [address] [place] [address] * Influenza A/B, RSV, and COVID-19 PCR Nasopharyngeal (11/05/2024 1:12 PM CDT) COVID-19 RNA Negative Negative Influenza A RNA Negative Negative [facility] ([place]ISH) Influenza B RNA Negative Negative [facility] ([place]) RSV RNA Negative Negative [facility] ([place]) Comment: Interpretive data: Testing performed by [facility]. This test is performed using the [employer] Xpert Xpress CoV-2/Flu/RSV plus assay. This is a multiplex, real- time reverse transcriptase PCR assay intended for the qualitative detection of nucleic acid from SARS-CoV-2, influenza A, influenza B, and respiratory syncytial virus. This assay has been cleared by the [place] Food and Drug administration. The performance characteristics have been verified by the [facility]. Results must be considered in the clinical context, and a negative result does not rule out infection. Interpretive Data last revised 2023 Nasopharyngeal 11/05/2024 1: 12 PM CDT 11/05/2024 1:14 PM CDT Narrative AUSTIN CUELLAR ([place]) - 11/05/2024 1:52 PM CDT Is the Patient experiencing symptoms consistent with COVID?->Yes us Kaley ARIZMENDI LAB MICROBIOLOGY - GENERA L ORDERABLES Final Result AUSTIN CUELLAR ([place]) 1 [facility] Department [place] [address] * XR Chest 1 Vw Portable (11/05/2024 1:11 PM CDT) Anatomical Region Laterality Modality Body, Chest N/A Computed Radiogr aphy 11/05/2024 1:19 PM CDT Narrative 11/05/2024 1:20 PM CDT EXAM DESCRIPTION: XR CHEST 1 VIEW REASON FOR STUDY: sob Pt arrives from home with survival flight ems for sob. Pt was having trouble catching her breath at home. Tried to give herself treatments at home but they did not help. TECHNIQUE: Single frontal radiographic view(s) of the chest. COMPARISON: 11/03/2024 FINDINGS: The heart, mediastinum, and pulmonary vasculature are grossly stable. There are minimal atherosclerotic changes of the aorta. There is no definite evidence of a pneumothorax. There is no definite evidence of a focal consolidation or pleural effusion. The osseous structures are acutely grossly stable. IMPRESSION: 1. No acute cardiopulmonary abnormality. THIS IS AN ELECTRONICALLY VERIFIED FINAL REPORT 11/05/2024 1:20 PM - Electronically signed by Carlos Grossman D.O. PS: PS Report ID: [id number] Reading Location: [id number] Procedure Note Carlos Grossman, DO - 11/05/2024 EXAM DESCRIPTION: XR CHEST 1 VIEW REASON FOR STUDY: sob Pt arrives from home with survival flight ems for sob. Pt was havingtrouble catching her breath at home. Tried to give herself treatments at home butthey did not help. TECHNIQUE: Single frontal radiographic view(s) of the chest. COMPARISON: 11/03/2024 FINDINGS: The heart, mediastinum, and pulmonary vasculature are grossly stable.There are minimal atherosclerotic changes of the aorta. There is no definite evidence of a pneumothorax. There is no definite evidence of a focal consolidation or pleural effusion. The osseous structures are acutely grossly stable. IMPRESSION: 1. No acute cardiopulmonary abnormality. THIS IS AN ELECTRONICALLY VERIFIED FINAL REPORT 11/05/2024 1:20 PM - Electronically signed by Carlos Grossman D.O. PS: PS Report ID: [id number] Reading Location: [place] [address] Kaley ARIZMENDI IMG XR PROCEDURES Final R esult * Troponin T high-sensitivity series (baseline, 2hr, 4hr, 6hr) (11/05/2024 12:59 PM CDT) Pathologist [facility] Trop T hs 10 <=14 ng/L [facility] CUELL[facility] ([place]) Comment: Interpretive Data For further hscTnT resources including the diagnostic algorithm and an aid in interpretation, copy and paste this link: https://nrl.testcatalog.org/show/hsTrop Current Interpretive Data last revised 2020. Blood 11/05/2024 12:5 9 PM CDT 11/05/2024 1:09 PM CDT Kaley ARIZMENDI LAB BLOOD ORDERABLES Tanika l Result [facility] CUELLAR ([place]) 1 [facility] Department [place] [address] * eGFR (11/05/2024 12:59 PM CDT) eGFR 74 >=60 mL/min/1. 73 m2 Comment: Interpretive Data Reference Interval Normal >/= [...] interpretive data was last reviewed 2021. Blood 11/05/2024 12:5 9 PM CDT 11/05/2024 1:09 PM CDT us Kaley ARIZMENDI LAB BLOOD ORDERABLES Tanika ewing Result [facility]LL[facility] ([place]) 1 [facility] Department [place] [address] * (ABNORMAL) Differential, auto (11/05/2024 12:59 PM CDT) Pathologist [facility] Neutrophil abs 7.70(H) 1.50 - 6.50 K/cumm Imm gran abs 0.04 0.00 - 0.10 K/cumm [facility] ([place]) Lymphocyte abs 1.80 0.80 - 3.30 K/cumm [facility] ([place]) Monocyte abs 0.27 0.20 - 0.80 K/cumm [facility] ([place]) Eosinophil abs 0.01 0.00 - 0.50 K/cumm [facility] ([place]) Basophil abs 0.01 0.00 - 0.10 K/cumm [facility] ([place]) Neutrophil pct 78.4 % [facility] ([place]) Comment: Interpretive Data Percent cell count reference ranges are not reported, since discordance with absolute values may lead to misinterpretation of CBC data. Current Interpretive Data was last revised on 2017. Imm gran pct 0.4 % [facility] CUE[facility] ([place]) Comment: Interpretive Data Percent cell count reference ranges are not reported, since discordance with absolute values may lead to misinterpretation of CBC data. Current Interpretive Data was last revised on 2017. Lymphocyte pct 18.3 % [facility] ([place]) Comment: Interpretive Data Percent cell count reference ranges are not reported, since discordance with absolute values may lead to misinterpretation of CBC data. Current Interpretive Data was last revised on 2017. Monocyte pct 2.7 % [facility] CUELL[facility] ([place]) Comment: Interpretive Data Percent cell count reference ranges are not reported, since discordance with absolute values may lead to misinterpretation of CBC data. Current Interpretive Data was last revised on 2017. Eosinophil pct 0.1 % [facility] ([place]) Comment: Interpretive Data Percent cell count reference ranges are not reported, since discordance with absolute values may lead to misinterpretation of CBC data. Current Interpretive Data was last revised on 2017. Basophil pct 0.1 % [facility] CUE[facility] ([place]) Comment: Interpretive Data Percent cell count reference ranges are not reported, since discordance with absolute values may lead to misinterpretation of CBC data. Current Interpretive Data was last revised on 2017. Blood 11/05/2024 12:5 9 PM CDT 11/05/2024 1:09 PM CDT us Kaley ARIZMENDI LAB BLOOD ORDERABLES Tanika l Result [facility] CUELLAR ([place]) 1 [facility] Department of Laboratories [place], [place] [id number] * (ABNORMAL) Pro B-type natriuretic peptide (11/05/2024 12:59 PM CDT) NT-proBNP 308(H) <=300 pg/mL [facility] CUELL[facility] ([place]) Comment: Interpretive Comments: A. Dyspnea in Acute Care Setting All Ages: < 300 pg/ml, acute heart failure unlikely. < 50 yrs: 300 - 450 pg/ml, further investigation warranted. > 450 pg/ml, acute heart failure likely. 50 - 74 yrs: 300 - 900 pg/ml, further investigation warranted. > 900 pg/ml, acute heart failure likely . > or = 75 yrs: 450 - 1800 pg/ml, further investigation warranted. > 1800 pg/ml, acute heart failure likely. B. Non-acute Setting < 75 yrs < 125 pg/ml, rules out heart failure. > or = 125 pg/ml, further investigation warranted. > or = 75 yrs < 450 pg/ml, rules out heart failure. > or = 450 pg/ml, further investigation warranted. - Knowledge of each individual patient's NT-proBNP range may be more useful than using similar cut-points for every patient. Please note that marked elevations in NT-proBNP levels may be observed in state other than Left Ventricular Congestive Failure, including: acute coronary syndromes, right heart strain/failure (including pulmonary embolism and cor pulmonale), critical illness, renal failure, as well as advanced age. - References: 1. Patel BELTRÁN et.al. Eur Heart J. 2006:27:330-337. 2. David RW, Quiroz AM. J. AM Gianna Cardiol: Cardiovasc Imag. 2009;2: 216- 225. Interpretive Data Last Revised Date: 2017. Blood 11/05/2024 12:5 9 PM CDT 11/05/2024 1:09 PM CDT Kaley ARIZMENDI LAB BLOOD ORDERABLES Tanika l Result [facility] ([place]) 1 [facility] Department [place] [address] * (ABNORMAL) CBC with auto differential (11/05/2024 12:59 PM CDT) WBC 9.83 3.80 - 9.90 K/cumm Hgb 12.9 11.9 - 15.5 g/dL [facility] ([place]) Hct 40.5 35.6 - 45.5 % [facility] ([place]) Plt 172 150 - 400 K/cumm [facility]) MPV 10.2 9.1 - 12.3 fL [facility] RBC 4.42 3.90 - 5.20 M/cumm [facility] ([place]) MCV 91.6 81.3 - 96.4 fL [facility]) MCH 29.2 27.1 - 33.3 pg [facility] MCHC 31.9(L) 32.3 - 35.7 g/dL [facility] ([place]) RDW CV 15.0(H) 11.1 - 14.9 % [facility]) RDW SD 50.9(H) 35.7 - 48.1 fL [facility] NRBC abs 0.00 0.00 - 0.01 K/cumm [facility] Blood 11/05/2024 12:5 9 PM CDT 11/05/2024 1:09 PM CDT us Kaley ARIZMENDI LAB BLOOD ORDERABLES Tanika l Result [facility] ([place]) 1 [facility] Department [place] [address] * Comprehensive metabolic panel (11/05/2024 12:59 PM CDT) Sodium 141 135 - 145 mmol/L [facility] ([place]) Potassium, pl 4.2 3.3 - 4.9 mmol/L [facility] ([place]) Chloride 105 97 - 110 mmol/L [facility] CO2 24 22 - 32 mmol/L [facility] Anion gap 12 2 - 15 mmol/L [facility] ([place]) BUN 19 6 - 25 mg/dL [facility] ([place]) Creatinine 0.86 0.60 - 1.10 mg/dL [facility] Glucose 121 70 - 199 mg/dL [facility] ([place]) Comment: Interpretive Data Fasting glucose >/= 126 mg/dl is diagnostic for diabetes. Fasting is defined as no caloric intake for at least 8 hours. Fasting glucose between 100 mg/dl to 125 mg/dl is diagnostic of prediabetes. In a patient with classic symptoms of hyperglycemia or hyperglycemic crisis, a random glucose >/= 200 mg/dl is diagnostic for diabetes. In the absence of unequivocal hyperglycemia, results should be confirmed by repeat testing. The classification and Diagnosis of Diabetes Diabetes Care 2021; 46: S19-S40. Current interpretive data was last revised 2022. Calcium 9.2 8.5 - 10.3 mg/dL [facility] ([place]) Bilirubin, total 0.3 0.1 - 1.2 mg/dL [facility] ([place]) Protein, pl 7.5 6.5 - 8.5 g/dL [facility] ([place]) Albumin 4.1 3.5 - 5.0 g/dL [facility] ([place]) Alk phos 94 40 - 130 Units/L [facility] ([place]) ALT 25 7 - 45 Units/L [facility] ([place]) AST 31 10 - 45 Units/L [facility] ([place]) Blood 11/05/2024 12:5 9 PM CDT 11/05/2024 1:09 PM CDT us Kaley ARIZMENDI LAB BLOOD ORDERABLES Tanika ewing Result Performing Organization Address City/State/[place] Co de Phone Number [facility] CUELLAR ([place]) 1 [facility] Department [place] [address] * ECG 12 lead (11/05/2024 12:54 PM CDT) 11/05/2024 12:5 4 PM CDT Narrative [facility] - 11/05/2024 1:57 PM CDT Vent Rate: 65 bpm RR Interval: 921 msec ND Interval: 152 msec QRS Duration: 93 msec QT Interval: 394 msec QTC Interval: 405 msec P-R-T [place]: 60 - 50 - 52 degrees IMPRESSION: SINUS RHYTHM NORMAL ECG NO CHANGE FROM PREVIOUS TRACING NOTED Electronically Signed By: Mainor Lopez MD Brenda Mast MD ECG ORDERABLES Final Res ult Performing Organization Address City/State/[facility] de Phone Number [facility] [employer] [facility] * ECG 12 lead (11/03/2024 11:55 AM CDT) 11/03/2024 11:5 5 AM CDT Narrative [facility] - 11/04/2024 6:49 AM CDT Vent Rate: 75 bpm RR Interval: 796 msec ND Interval: 161 msec QRS Duration: 84 msec QT Interval: 380 msec QTC Interval: 409 msec P-R-T [place]: 56 - 53 - 55 degrees IMPRESSION: SINUS RHYTHM LOW QRS VOLTAGE IN PRECORDIAL LEADS [QRS DEFLECTION < 1.0 mV IN CHEST LEADS] BORDERLINE ECG NO CHANGE FROM PREVIOUS TRACING NOTED Electronically Signed By: Mainor Lopez MD Imer Chang MD ECG ORDERABLES Final Result Performing Organization Address [facility] Phone Number [facility] * XR CHEST 1 VIEW PORTABLE (11/03/2024 11:53 AM CDT) Anatomical Region Laterality Modality Body, Chest N/A Computed Radiogr aphy 11/03/2024 11:5 5 AM CDT Narrative 11/03/2024 11:56 AM CDT EXAM DESCRIPTION: XR CHEST 1 VIEW REASON FOR STUDY: shortness of breath Pt to the ED with increased shortness of breath and cough for the last week. Hx of COPD. TECHNIQUE: Frontal radiographic view(s) of the chest. COMPARISON: 09/10/2021. FINDINGS: LUNGS: No focal opacity, pleural effusion, or pneumothorax. HEART/MEDIASTINUM: Cardiac silhouette normal in size. Mediastinal and hilar contours appear normal. LINES/TUBES: None. BONES: No acute osseous abnormality. IMPRESSION: No acute cardiopulmonary abnormality. THIS IS AN ELECTRONICALLY VERIFIED FINAL REPORT 11/03/2024 11:56 AM - Electronically signed by Rubio Gallego M.D. CH: ZULLY Report ID: [id number] Reading Location: [id number] Procedure Note Rubio Gallego Jr., MD - 11/03/2024 EXAM DESCRIPTION: XR CHEST 1 VIEW REASON FOR STUDY: shortness of breath Pt to the ED with increased shortness of breath and cough for the lastweek. Hx of COPD. TECHNIQUE: Frontal radiographic view(s) of the chest. COMPARISON: 09/10/2021. FINDINGS: LUNGS: No focal opacity, pleural effusion, or pneumothorax. HEART/MEDIASTINUM: Cardiac silhouette normal in size. Mediastinal andhilar contours appear normal. LINES/TUBES: None. BONES: No acute osseous abnormality. IMPRESSION: No acute cardiopulmonary abnormality. THIS IS AN ELECTRONICALLY VERIFIED FINAL REPORT 11/03/2024 11:56 AM - Electronically signed by Rubio Gallego M.D. CH: ZULLY Report ID: [id number] Reading Location: [place] [address] Imer Chang MD IMG XR PROCEDURES Final Resu lt * Influenza A/B, RSV, and COVID-19 PCR Nasopharyngeal (11/03/2024 11:47 AM CDT) COVID-19 RNA Negative Negative Influenza A RNA Negative Negative [facility] ([place]) Influenza B RNA Negative Negative [facility] ([place]) RSV RNA Negative Negative [facility] ([place]) Comment: Interpretive data: Testing performed by [facility]. This test is performed using the [employer] Xpert Xpress CoV-2/Flu/RSV plus assay. This is a multiplex, real- time reverse transcriptase PCR assay intended for the qualitative detection of nucleic acid from SARS-CoV-2, influenza A, influenza B, and respiratory syncytial virus. This assay has been cleared by the [place] Food and Drug administration. The performance characteristics have been verified by the [facility]. Results must be considered in the clinical context, and a negative result does not rule out infection. Interpretive Data last revised 2023 Nasopharyngeal 11/03/2024 11 :47 AM CDT 11/03/2024 11:52 AM CDT Narrative [facility] ([place]) - 11/03/2024 12:40 PM CDT Is the Patient experiencing symptoms consistent with COVID?->Yes Imer Chang MD LAB MICROBIOLOGY - GENERAL O RDERABLES Final Result Performing Organization Address [facility]/[place] Co de Phone Number [facility] CUELLAR ([place]) 1 [place] [address] * Troponin T high-sensitivity series (baseline, 2hr, 4hr, 6hr) (11/03/2024 11:45 AM CDT) Trop T hs 9 <=14 ng/L Comment: Interpretive Data For further hscTnT resources including the diagnostic algorithm and an aid in interpretation, copy and paste this link: https://nrl.testcatalog.org/show/hsTrop Current Interpretive Data last revised 2020. Blood 11/03/2024 11:4 5 AM CDT 11/03/2024 11:51 AM CDT Imer Chang MD LAB BLOOD ORDERABLES Final R esult Performing Organization Address City/[facility]/[place] Co de Phone Number [facility] CUELLAR ([place]) [address] [place] [address] * Sepsis Lactate w/ Reflex (11/03/2024 11:45 AM CDT) [facility] Sepsis Lactate 1.7 0.7 - 2.0 mmol/L Blood 11/03/2024 11:4 5 AM CDT 11/03/2024 11:48 AM CDT Imer Chang MD LAB BLOOD ORDERABLES Final R esult Performing Organization Address [facility]/ZIP Co de Phone Number [facility] CUELLAR ([place]) 1 [place] [address] * eGFR (11/03/2024 11:45 AM CDT) Pathologist [facility] eGFR 72 >=60 mL/min/1. 73 m2 Comment: Interpretive Data Reference Interval Normal >/= [...] interpretive data was last reviewed 2021. Blood 11/03/2024 11:4 5 AM CDT 11/03/2024 11:48 AM CDT us Imer Chang MD LAB BLOOD ORDERABLES Final R esult [facility] ([place]) 1 [facility] Department [place] [address] * Differential, auto (11/03/2024 11:45 AM CDT) Neutrophil abs 3.34 1.50 - 6.50 K/cumm Imm gran abs 0.01 0.00 - 0.10 K/cumm [facility] ([place]) Lymphocyte abs 1.36 0.80 - 3.30 K/cumm [facility] ([place]) Monocyte abs 0.60 0.20 - 0.80 K/cumm [facility] ([place]) Eosinophil abs 0.06 0.00 - 0.50 K/cumm [facility] ([place]) Basophil abs 0.01 0.00 - 0.10 K/cumm [facility] ([place]) Neutrophil pct 62.0 % [facility] ([place]) Comment: Interpretive Data Percent cell count reference ranges are not reported, since discordance with absolute values may lead to misinterpretation of CBC data. Current Interpretive Data was last revised on 2017. Imm gran pct 0.2 % [facility] ([place]) Comment: Interpretive Data Percent cell count reference ranges are not reported, since discordance with absolute values may lead to misinterpretation of CBC data. Current Interpretive Data was last revised on 2017. Lymphocyte pct 25.3 % [facility] ([place]) Comment: Interpretive Data Percent cell count reference ranges are not reported, since discordance with absolute values may lead to misinterpretation of CBC data. Current Interpretive Data was last revised on 2017. Monocyte pct 11.2 % [facility] ([place]) Comment: Interpretive Data Percent cell count reference ranges are not reported, since discordance with absolute values may lead to misinterpretation of CBC data. Current Interpretive Data was last revised on 2017. Eosinophil pct 1.1 % [facility] ([place]) Comment: Interpretive Data Percent cell count reference ranges are not reported, since discordance with absolute values may lead to misinterpretation of CBC data. Current Interpretive Data was last revised on 2017. Basophil pct 0.2 % [facility] ([place]) Comment: Interpretive Data Percent cell count reference ranges are not reported, since discordance with absolute values may lead to misinterpretation of CBC data. Current Interpretive Data was last revised on 2017. Blood 11/03/2024 11:4 5 AM CDT 11/03/2024 11:48 AM CDT Imer Chang MD LAB BLOOD ORDERABLES Final R esult [facility] ([place]) 1 [facility] Department [place] [address] * Pro B-type natriuretic peptide (11/03/2024 11:45 AM CDT) NT-proBNP 125 <=300 pg/mL Comment: Interpretive Comments: A. Dyspnea in Acute Care Setting All Ages: < 300 pg/ml, acute heart failure unlikely. < 50 yrs: 300 - 450 pg/ml, further investigation warranted. > 450 pg/ml, acute heart failure likely. 50 - 74 yrs: 300 - 900 pg/ml, further investigation warranted. > 900 pg/ml, acute heart failure likely . > or = 75 yrs: 450 - 1800 pg/ml, further investigation warranted. > 1800 pg/ml, acute heart failure likely. B. Non-acute Setting < 75 yrs < 125 pg/ml, rules out heart failure. > or = 125 pg/ml, further investigation warranted. > or = 75 yrs < 450 pg/ml, rules out heart failure. > or = 450 pg/ml, further investigation warranted. - Knowledge of each individual patient's NT-proBNP range may be more useful than using similar cut-points for every patient. Please note that marked elevations in NT-proBNP levels may be observed in state other than Left Ventricular Congestive Failure, including: acute coronary syndromes, right heart strain/failure (including pulmonary embolism and cor pulmonale), critical illness, renal failure, as well as advanced age. - References: 1. Patel BELTRÁN et.al. Eur Heart J. 2006:27:330-337. 2. David RW, Gabriella LOPEZ. J. AM Gianna Cardiol: Cardiovasc Imag. 2009;2: 216- 225. Interpretive Data Last Revised Date: 2017. Blood 11/03/2024 11:4 5 AM CDT 11/03/2024 11:51 AM CDT us Imer Chang MD LAB BLOOD ORDERABLES Final R esult [facility] C[facility] ([place]) 1 [facility] Department of Laboratories [place], [place] [id number] * (ABNORMAL) CBC with auto differential (11/03/2024 11:45 AM CDT) WBC 5.38 3.80 - 9.90 K/cumm Hgb 13.6 11.9 - 15.5 g/dL [facility] ([place] Hct 41.9 35.6 - 45.5 % [facility] Plt 158 150 - 400 K/cumm [facility] ([place]) MPV 10.3 9.1 - 12.3 fL [facility] RBC 4.59 3.90 - 5.20 M/cumm [facility] ([place]) MCV 91.3 81.3 - 96.4 fL [facility]) MCH 29.6 27.1 - 33.3 pg [facility]) MCHC 32.5 32.3 - 35.7 g/dL [facility] ([place]) RDW CV 15.0(H) 11.1 - 14.9 % [facility]) RDW SD 50.4(H) 35.7 - 48.1 fL [facility] ([place]) NRBC abs 0.00 0.00 - 0.01 K/cumm [facility] Blood 11/03/2024 11:4 5 AM CDT 11/03/2024 11:48 AM CDT Imer Chang MD LAB BLOOD ORDERABLES Final R esult Performing Organization Address [facility] de Phone Number [facility] ([place]) 1 [facility] [employer] [place] [address] * (ABNORMAL) Blood gas, venous (11/03/2024 11:45 AM CDT) pH, Venous 7.34 7.32 - 7.43 PCO2, Venous 53(H) 40 - 50 mmHg [facility] ([place]) PO2, Venous 24 mmHg [facility] ([place]) HCO3 Venous, Calculated 28 20 - 30 mmol/L [facility]) BE, venous 1 mmol/L [facility] Comment: Interpretive Data No Reference Range Established Current Interpretive Data was last revised on 2017. Blood 11/03/2024 11:4 5 AM CDT 11/03/2024 11:50 AM CDT Imer Chang MD LAB BLOOD ORDERABLES Final R esult Performing Organization Address City/[facility]/[place] Co de Phone Number [facility] CUELL[facility] ([place]) 1 [facility] [place] [employer] [place] [address] * Comprehensive metabolic panel (11/03/2024 11:45 AM CDT) Sodium 136 135 - 145 mmol/L Potassium, pl 4.1 3.3 - 4.9 mmol/L [facility]) Chloride 98 97 - 110 mmol/L [facility] CO2 25 22 - 32 mmol/L [facility] Anion gap 13 2 - 15 mmol/L [facility]) BUN 10 6 - 25 mg/dL [facility]) Creatinine 0.88 0.60 - 1.10 mg/dL [facility] Glucose 196 70 - 199 mg/dL [facility] Comment: Interpretive Data Fasting glucose >/= 126 mg/dl is diagnostic for diabetes. Fasting is defined as no caloric intake for at least 8 hours. Fasting glucose between 100 mg/dl to 125 mg/dl is diagnostic of prediabetes. In a patient with classic symptoms of hyperglycemia or hyperglycemic crisis, a random glucose >/= 200 mg/dl is diagnostic for diabetes. In the absence of unequivocal hyperglycemia, results should be confirmed by repeat testing. The classification and Diagnosis of Diabetes Diabetes Care 202; 46: S19-S40. Current interpretive data was last revised 2022. Calcium 9.6 8.5 - 10.3 mg/dL [facility] ([place]) Bilirubin, total 0.3 0.1 - 1.2 mg/dL [facility] ([place]) Protein, pl 7.4 6.5 - 8.5 g/dL [facility] ([place]) Albumin 4.2 3.5 - 5.0 g/dL [facility]) Alk phos 103 40 - 130 Units/L [facility] ALT 21 7 - 45 Units/L [facility] AST 24 10 - 45 Units/L [facility]) Blood 11/03/2024 11:4 5 AM CDT 11/03/2024 11:48 AM CDT us Imer Chang MD LAB BLOOD ORDERABLES Final R esult [facility] ([place]) 1 [facility] Department [place] [address] * MCT Mobile Cardiac Telemetry Event Monitor (10/02/2024 12:05 PM CDT) Anatomical Region Laterality Modality Electrocardiogra phy Narrative 10/22/2024 1:20 PM CDT AMBULATORY CIVIL ATTORNEY REPORT Patient Name: Alberto Stein Date of : 1955 Requesting Physician: Dr. Ngo Date of interpretation: 10/22/24 Type of monitor : 2 week event monitor Date of the study/Enrollment period: 10/02/2024-10/15/2024 Indication: Palpitations Quality of the study: Adequate Interpretation: Predominant underlying rhythm is sinus rhythm, heart rate ranges between 52-115 beats per minute, average heart rate 75 beats per minute. QRS duration within normal limits. Occasional ventricular and supraventricular premature beats with a burden of less than 1% each for the duration of the study. No significant tachy or bradyarrhythmias. Patient reported an episode of flutter or skipped heartbeat which correlated with sinus rhythm and PVC. Conclusions: Predominant underlying rhythm is sinus rhythm, average heart rate 75 beats per minute. Occasional ventricular and supraventricular premature beats. No significant tachy or bradyarrhythmias. Patient reported an episode of skipped heartbeat which correlated with sinus rhythm with PVC. Voice recognition software was used to complete this document, therefore, pile driver engineer variances may occur. Karan Ngo MD, [facility] 10/22/24 Procedure Note Karan Ngo MD - 10/22/2024 AMBULATORY CIVIL ATTORNEY REPORT Patient Name: Alberto Stein Date of : 1955 Requesting Physician: Dr. Ngo Date of interpretation: 10/22/24 Type of monitor : 2 week event monitor Date of the study/Enrollment period: 10/02/2024-10/15/2024 Indication: Palpitations Quality of the study: Adequate Interpretation: Predominant underlying rhythm is sinus rhythm, heart rateranges between 52-115 beats per minute, average heart rate 75 beats perminute. QRS duration within normal limits. Occasional ventricular andsupraventricular premature beats with a burden of less than 1% each forthe duration of the study. No significant tachy or bradyarrhythmias.Patient reported an episode of flutter or skipped heartbeat whichcorrelated with sinus rhythm and PVC. Conclusions: Predominant underlying rhythm is sinus rhythm, average heart rate 75 beatsper minute. Occasional ventricular and supraventricular premature beats. No significant tachy or bradyarrhythmias. Patient reported an episode of skipped heartbeat which correlated withsinus rhythm with PVC. Voice recognition software was used to complete this document, therefore,pile driver engineer variances may occur. Karan Ngo MD, [facility] 10/22/24 Karan Ngo MD [facility] PROCEDURES F inal Result * (ABNORMAL) POCT lipid panel (10/02/2024 10:59 AM CDT) Cholesterol, POC 121 <200 MG/DL HDL, POC 41 >=40 mg/dL Triglycerides, POC 155(A) <=149 mg/dL LDL Cholesterol POC 49 <=129 mg/dL Chol/HDL Ratio, POC 1.2 NONE Non-HDL Cholesterol, POC 80 NONE mg/dL Cholesterol Total, POC 121 30 - 199 mg/dL Capillary blood 10/02/2024 1 0:59 AM CDT Result [facility] Karan Ngo MD POINT OF CARE TEST ORDERABLES Fi nal Result * Electrocardiogram Report (10/02/2024) 10/02/2024 Karan Ngo MD ECG ORDERABLES Edited Result - Final * POCT hemoglobin A1c (03/16/2020 2:10 PM FRONT SIGHT ATTACHER) Hemoglobin A1C, POC 7.1 Blood specimen (specimen) 03/16/2020 2:10 PM FRONT SIGHT ATTACHER Abena Ronquillo MD POINT OF CARE TEST ORDERABLES Final Result * DIABETES EYE EXAM (02/06/2019) [facility] Diabetic Eye Exam Unknown us Historical Provider HEALTH MAINTENANCE Final Result from Last 3 Months or Most Recently Relevant to Health Maintenance Insurance [place] [address] [place] [address] Advance Directives For more information, please contact: [phone] * Full Code (Latest Code Status on File) Date Activated Date Inactivated Comments 11/05/2024 4:12 PM 11/07/2024 3:15 PM * Full Code Date Activated Date Inactivated Comments 10/10/2020 6:56 PM 10/12/2020 5:57 PM * Full Code Date Activated Date Inactivated Comments 11/30/2018 7:41 AM 11/30/2018 1:32 PM * Full Code Date Activated Date Inactivated Comments 04/06/2017 3:48 PM 04/07/2017 2:06 PM Care Teams Polisher Brass Relationship Specialty Start Date End Date Beatriz Cuevas NP [address] [place] [id number] PCP - General Nurse Practitioner 10/02/24 Karan Ngo MD [address] [place] [address] Consulting Physician Cardiology 11/02/18
--- OUTSIDE RECORDS SUMMARY | 2024-11-14 11:04 | XMS_ITS | Encounter Summary ---
Author Organization [facility] Healthcare Address [address] [place] [id number] Care Team Providers Care Hearing Therapy Director Name Role Phone Karan Ngo MD Unavailable Rohith Sen MD Primary Care Provider [phone] Beatriz Cuevas NP Primary Care Provider [phone] Encounter Details Date Type Department Care Team (Late st Contact Info) Description 03/07/2024 Orders Only [facility] Health Information Management [address] [place] [id number] Scanning, Provider Social History Tobacco Use Types [...] of Binge Drinking Not on file 09/22 Comments No Sex and Gender Information Value Date Recorded Sex Assigned at Not on file 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 Gender Identity Not on file Sexual Orientation Not on file documented as of this encounter Plan of Treatment Not on file documented as of this encounter Procedures Procedure Name Priority Date/Time Associated Diagnosis Comments SCAN - RADIOLOGY/IMAGING 03/07/2024 documented in this encounter Results * SCAN - RADIOLOGY/IMAGING (03/07/2024) Anatomical Region Laterality Modality Other us Provider Scanning Final Result documented in this encounter Visit Diagnoses Not on filedocumented in this encounter Additional Health Concerns Infection Onset Date Last Indicated Resolved Time COVID: Suspected 11/03/2024 11/03/2024 11/03/2024 12:41 PM CDT COVID: Suspected 11/05/2024 11/05/2024 11/05/2024 1:53 PM CDT documented as of this encounter Care Teams Hearing Therapy Director Relationship Specialty Start Date End Date Rohith Sen MD [address] [place] [id number] PCP - General Family Practice 12/05/23 10/01/24 Beatriz Cuevas NP [address] [place] [id number] PCP - General Nurse Practitioner 10/02/24 Karan Ngo MD [address] [place] [id number] Consulting Physician Cardiology 11/02/18 documented as of this encounter
--- OUTSIDE RECORDS SUMMARY | 2024-11-14 11:04 | XMS_ITS | Referral Summary ---
Author Organization [facility] [place] [address] [facility] [address] Address [address] [place] [address] Care Team Providers Care Floorleader Name Role Phone Karan Ngo MD Unavailable Beatriz Cuevas NP Primary Care Provider [phone] Encounters Date Type Department Care Team Description 11/05/2024 12:50 PM CDT - 11/07/2024 11:10 AM CDT Hospital Encounter [facility] Acute Medicine 1 [place] [address] Ruba Pratt MD COPD exacerbation (HCC) (Primary Dx) Discharge Disposition: Discharge to home or self care 11/03/2024 11:39 AM CDT - 11/03/2024 1:05 PM CDT Emergency [facility] Emergency Department 1 [place] [address] Imer Chang MD COPD exacerbation (HCC) (Primary Dx) Discharge Disposition: Discharge to home or self care 10/02/2024 10:30 AM CDT Ancillary Procedure [facility] Cardiology [address] [facility] [address] [place] [address] Palpitations 10/02/2024 11:30 AM CDT Office Visit [facility] Cardiology [address] [place] [address] Karan Ngo MD Palpitations (Primary Dx); 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; History of non-ST elevation myocardial infarction (NSTEMI); Status post angioplasty with stent; Hypertension associated with diabetes (HCC); Lipid screening; Tobacco abuse from Last 3 Months Allergies Active Allergy [...] 24 hr tabletIndication s: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 Started [...] 03/16/2020 Assessment & Plan (03/16/2020 2:23 PM LEI SELLER): Complicated with CAD Controlled with medication - [...] (11/02/2018): Added automatically from request for surgery [id number] Assessment & Plan (12/11/2018 5:10 PM CDT): [...] drink = 0.6 oz pur e alcohol) [facility] [employer] Answer Date Recorded In the past 12 months has [employer], gas, oil, or water [employer] threatened to shut off services in your [...] week 11/06/2024 How often do you attend chur ch or scientologist services? More than 4 times per year 11/06/2024 Do you belong to any clubs o r organizations such as latter day groups, unions, fraternal or athletic groups, or [...] any time in the past 12 m [facility], were you homeless or living in a snf (including now)? No 11/06/2024 Personal Safety Answer Date Recorded Have you ever been in or are you currently in a harmful physical or emotional relationship or is someone making you feel afraid or unsafe? Denies 11/05/2024 Comments No Sex and Gender Information Value Date Recorded Sex Assigned at Not on file Legal Sex Female 1:49 PM LEI SELLER Gender Identity Not on file Sexual Orientation [...] kg (187 lb 1.6 oz) 11/05/2024 4:25 PM CDT Height 160 cm (5' 3) 11/05/2024 4:25 PM CDT Body Mass Index 33.14 11/05/2024 4:25 PM CDT Plan of Treatment Not on file Medical Devices Implanted Type Area Plate Put In Worker Device Identifier Shelf Expiration Date Model / Serial / Lot System Coronary Stent Synergy Pebax Everolimus Eluting [place] [employer] Chromium Plga L12 Mm L144 Cm Od2.25 Mm Radiopaque 1 Access Port Inflation Lumen Accepts .014 In Guidewire - [id number] Implanted:Qty: 1 on 04/06/2017 by Karan Ngo MD at [facility] 12/19/2017 [id number] / / [id number] Procedures Procedure Name Priority Date/Time Associated Diagnosis [...] REPORT Routine 10/02/2024 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 POCT HEMOGLOBIN A1C Routine 03/16/2020 2 :10 PM LEI SELLER Type 2 diabetes mellitus with hyperglycemia, with long-term current use of insulin ([facility]) DIABETES EYE EXAM Routine 02/06/2019 from Last 3 Months or Most Recently Relevant to Health Maintenance Results * (ABNORMAL) POCT glucose (11/07/2024 7:34 AM CDT) Pathologist [facility] Glucose, POC 235(H) 70 - 199 mg/dL Blood 11/07/2024 7:34 AM CDT 11/07/2024 7:34 AM CDT us Ruba Pratt MD LAB POCT ORDERABLES - DEVICE Final Result Performing Organization Address City/[facility]/ZIP Co de Phone Number AUSTIN CUELLAR ([place]) 1 [facility] [place] [address] * (ABNORMAL) POCT glucose (11/07/2024 1:57 AM CDT) Glucose, POC 201(H) 70 - 199 mg/dL Blood 11/07/2024 1:57 AM CDT 11/07/2024 1:57 AM CDT us Ruba Pratt MD LAB POCT ORDERABLES - DEVICE Final Result Performing Organization Address [facility] Co de Phone Number AUSTIN CUELLAR ([place]) 1 [facility] [place] [address] * (ABNORMAL) POCT glucose (11/06/2024 7:34 PM CDT) Glucose, POC 282(H) 70 - 199 mg/dL Blood 11/06/2024 7:34 PM CDT 11/06/2024 7:34 PM CDT us Ruba Pratt MD LAB POCT ORDERABLES - DEVICE Final Result Performing Organization Address [facility] Co de Phone Number AUSTIN CUELLAR ([place]) 1 [facility] [place] [address] * (ABNORMAL) POCT glucose (11/06/2024 4:31 PM CDT) Glucose, POC 253(H) 70 - 199 mg/dL Blood 11/06/2024 4:31 PM CDT 11/06/2024 4:31 PM CDT us Ruba Pratt MD LAB POCT ORDERABLES - DEVICE Final Result AUTSIN CUELLAR ([place]) 1 [facility] [place] [address] * (ABNORMAL) POCT glucose (11/06/2024 11:12 AM CDT) Glucose, POC 214(H) 70 - 199 mg/dL Blood 11/06/2024 11:1 2 AM CDT 11/06/2024 11:12 AM CDT Ruba Pratt MD LAB POCT ORDERABLES - DEVICE Final Result Performing Organization Address [facility]/ZIP Co de Phone Number AUSTIN CUELLAR ([place]) 1 [facility] [place] [address] * (ABNORMAL) POCT glucose (11/06/2024 7:36 AM CDT) Glucose, POC 229(H) 70 - 199 mg/dL Blood 11/06/2024 7:36 AM CDT 11/06/2024 7:36 AM CDT Ruba Pratt MD LAB POCT ORDERABLES - DEVICE Final Result Performing Organization Address [facility]/ZIP Co de Phone Number AUSTIN CUELLAR ([place]) 1 [facility] [place] [address] * (ABNORMAL) POCT glucose (11/06/2024 2:13 AM CDT) Glucose, POC 317(H) 70 - 199 mg/dL Blood 11/06/2024 2:13 AM CDT 11/06/2024 2:13 AM CDT Ruba Pratt MD LAB POCT ORDERABLES - DEVICE Final Result AUSTIN CUELLAR (ANISH) 1 [facility] [place] [address] * (ABNORMAL) POCT glucose (11/05/2024 11:17 PM CDT) Glucose, POC 362(H) 70 - 199 mg/dL Blood 11/05/2024 11:1 7 PM CDT 11/05/2024 11:17 PM CDT Ruba Pratt MD LAB POCT ORDERABLES - DEVICE Final Result ABRILMARYELLEN ALISA ([place]) 1 [facility] [place] [address] * (ABNORMAL) POCT glucose (11/05/2024 8:08 PM CDT) Glucose, POC 338(H) 70 - 199 mg/dL Blood 11/05/2024 8:08 PM CDT 11/05/2024 8:08 PM CDT Ruba Pratt MD LAB POCT ORDERABLES - DEVICE Final Result Performing Organization Address [facility]/ZIP Co de Phone Number AUSTIN CUELLAR ([place]) 1 [facility] [place] [address] * (ABNORMAL) POCT glucose (11/05/2024 7:25 PM CDT) Glucose, POC 389(H) 70 - 199 mg/dL Blood 11/05/2024 7:25 PM CDT 11/05/2024 7:25 PM CDT Ruba Pratt MD LAB POCT ORDERABLES - DEVICE Final Result AUSTIN CUELLAR ([place]) 1 [facility] [place] [address] * Troponin T high-sensitivity 6-hour (11/05/2024 6:25 PM CDT) Trop T hs 8 <=14 ng/L [facility]IN CUELLAR (ANISH) Comment: Interpretive Data For further hscTnT resources including the diagnostic algorithm and an aid in interpretation, copy and paste this link: https://nrl.testEyeNetra.org/show/hsTrop Current Interpretive Data last revised 2020. Trop T hs delta -2 ng/L [facility] ([place]) Trop T hs interp Insignificant [facility] ([place]) Blood 11/05/2024 6:25 PM CDT 11/05/2024 6:30 PM CDT us Kaley ARIZMENDI LAB BLOOD ORDERABLES Tanika l Result AUSTIN CUELLAR ([place]) 1 [facility] [place] [address] * (ABNORMAL) POCT glucose (11/05/2024 5:22 PM CDT) Glucose, POC 247(H) 70 - 199 mg/dL Blood 11/05/2024 5:22 PM CDT 11/05/2024 5:22 PM CDT Ruba Pratt MD LAB POCT ORDERABLES - DEVICE Final Result AUSTIN CUELLAR (ANISH) 1 [facility] [place] [address] * Troponin T high-sensitivity 4-hour (11/05/2024 4:52 PM CDT) Trop T hs 7 <=14 ng/L [facility] ([place]) Comment: Interpretive Data For further hscTnT resources including the diagnostic algorithm and an aid in interpretation, copy and paste this link: https://nrl.testEyeNetra.org/show/hsTrop Current Interpretive Data last revised 2020. Trop T hs delta -3 ng/L [facility] ([place]) Trop T hs interp Insignificant [facility] (ANISH) Blood 11/05/2024 4:52 PM CDT 11/05/2024 5:09 PM CDT Kaley ARIZMENDI LAB BLOOD ORDERABLES Tanika l Result AUSTIN CUELLAR ([place]) 1 [facility] [employer] [address] * eGFR (11/05/2024 4:52 PM CDT) eGFR [...] Tanika l Result AUSTIN CUELLAR (ANISH) 1 [facility] [place] [address] * (ABNORMAL) CBC without differential (11/05/2024 4:52 PM CDT) WBC 7.70 3.80 - 9.90 K/cumm Hgb 12.3 11.9 - 15.5 g/dL AUSTIN CUELLAR ([place]) Hct 38.5 35.6 - 45.5 % [facility] ([place]) Plt 166 150 - 400 K/cumm [facility] ([place]) MPV 10.4 9.1 - 12.3 fL [facility] ([place]) RBC 4.19 3.90 - 5.20 M/cumm [facility] (ANIHS) MCV 91.9 81.3 - 96.4 fL [facility] ([place]) MCH 29.4 27.1 - 33.3 pg [facility] ([place]) MCHC 31.9(L) 32.3 - 35.7 g/dL [facility] ([place]) RDW CV 14.9 11.1 - 14.9 % [facility] ([place]) RDW SD 51.0(H) 35.7 - 48.1 fL [facility] ([place]) NRBC abs 0.00 0.00 - 0.01 K/cumm [facility] Blood 11/05/2024 4:52 PM CDT 11/05/2024 5:09 PM CDT us Kaley ARIZMENDI LAB BLOOD ORDERABLES Tanika ewing Result [facility] (ANISH) 1 [facility] [place] [address] * (ABNORMAL) Comprehensive metabolic panel (11/05/2024 4:52 PM CDT) Sodium 138 135 - 145 mmol/L [facility] ([facility]) Potassium, pl 4.0 3.3 - 4.9 mmol/L [facility] ([place]) Chloride 100 97 - 110 mmol/L [facility] ([place]) CO2 22 22 - 32 mmol/L [facility] ([place]) Anion gap 16(H) 2 - 15 mmol/L [facility] ([place]) BUN 20 6 - 25 mg/dL [facility] ([facility]) Creatinine 0.80 0.60 - 1.10 mg/dL [facility] ([place]) Glucose 341(H) 70 - 199 mg/dL [facility] ([facility]) Comment: Interpretive Data Fasting glucose [...] ARIZMENDI LAB BLOOD ORDERABLES Tanika l Result [facility] ([place]ISH) 1 [facility] Department [place] [address] * Troponin T high-sensitivity 2-hour (11/05/2024 3:08 [...] ORDERABLES Tanika l Result Performing Organization Address [facility] Co de Phone Number AUSTIN CUELLAR ([place]) 1 [facility] [place] [address] * Blood gas, venous (11/05/2024 2:24 PM CDT) pH, Venous 7.32 7.32 - 7.43 PCO2, Venous 49 40 - 50 mmHg [facility] ([place]) PO2, Venous 86 mmHg [facility] ([place]) HCO3 Venous, Calculated 25 20 - 30 mmol/L [facility] ([place]) BE, venous -1 mmol/L [facility] ([place]) Comment: Interpretive Data No Reference Range Established Current Interpretive Data was last revised on 2017. Blood 11/05/2024 2:24 PM CDT 11/05/2024 2:30 PM CDT Kaley ARIZMENDI LAB BLOOD ORDERABLES Tanika l Result Performing Organization Address [facility] Co de Phone Number AUSTIN CUELLAR ([place]) [address] [place] [address] * Influenza A/B, RSV, and COVID-19 PCR Nasopharyngeal (11/05/2024 1:12 PM CDT) COVID-19 RNA Negative Negative Influenza A RNA Negative Negative [facility] (ANISH) Influenza B RNA Negative Negative [facility] (ANISH) RSV RNA Negative Negative [facility] ([place]) Comment: Interpretive data: Testing performed by [facility]. This test is performed using the Surplex Xpert Xpress CoV-2/Flu/RSV plus assay. This is a multiplex, real- time reverse transcriptase PCR assay intended for the qualitative detection of nucleic acid from SARS-CoV-2, influenza A, influenza B, and respiratory syncytial virus. This assay has been cleared by the [place] Food and Drug administration. The performance characteristics have been verified by the [facility]. Results must be considered in the clinical context, and a negative result does not rule out infection. Interpretive Data last revised 2023 Nasopharyngeal 11/05/2024 1: 12 PM CDT 11/05/2024 1:14 PM CDT Narrative [facility] CUELLAR ([place]) - 11/05/2024 1:52 PM CDT Is the Patient experiencing symptoms consistent with COVID?->Yes us Kaley ARIZMENDI LAB MICROBIOLOGY - GENERA L ORDERABLES Final Result ASUTIN CUELLAR ([place]) 1 [facility] Department [place] [address] * XR Chest 1 Vw Portable (11/05/2024 [...] Carlos Grossman D.O. PS: PS Report ID: [id number] Reading Location: [id number] Procedure Note Carlos Grossman, DO - 11/05/2024 [...] Carlos Grossman D.O. PS: PS Report ID: [id number] Reading Location: [place] [address] Kaley ARIZMENDI IMG XR PROCEDURES Final R esult * Troponin T high-sensitivity series (baseline, 2hr, 4hr, 6hr) (11/05/2024 12:59 PM CDT) Pathologist [facility] Trop T hs 10 <=14 ng/L AUSTIN CUELLAR ([place]) Comment: Interpretive Data For further hscTnT resources including the diagnostic algorithm and an aid in interpretation, copy and paste this link: https://nrl.testcatalog.org/show/hsTrop Current Interpretive Data last revised 2020. Blood 11/05/2024 12:5 9 PM CDT 11/05/2024 1:09 PM CDT Kaley ARIZMENDI LAB BLOOD ORDERABLES Tanika l Result AUSTIN CUELLAR ([place]) 1 [facility] Department [place] [address] * eGFR (11/05/2024 12:59 PM CDT) eGFR [...] ARIZMENDI LAB BLOOD ORDERABLES Tanika ewing Result [facility] ([place]) 1 [facility] Department [place] [address] * (ABNORMAL) Differential, auto (11/05/2024 12:59 PM CDT) Pathologist [facility] Neutrophil abs 7.70(H) 1.50 - 6.50 K/cumm [...] Neutrophil pct 78.4 % [facility] ([place]) Comment: Interpretive Data Percent cell count reference ranges are not reported, since discordance with absolute values may lead to misinterpretation of CBC data. Current Interpretive Data was last revised on 2017. Imm gran pct 0.4 % [facility] ([place]ISH) Comment: Interpretive Data Percent cell count reference ranges are not reported, since discordance with absolute values may lead to misinterpretation of CBC data. Current Interpretive Data was last revised on 2017. Lymphocyte pct 18.3 % [facility] ([place]) Comment: Interpretive Data Percent cell count reference ranges are not reported, since discordance with absolute values may lead to misinterpretation of CBC data. Current Interpretive Data was last revised on 2017. Monocyte pct 2.7 % [facility] ([place]) Comment: Interpretive Data Percent cell count reference ranges are not reported, since discordance with absolute values may lead to misinterpretation of CBC data. Current Interpretive Data was last revised on 2017. Eosinophil pct 0.1 % [facility] ([place]) Comment: Interpretive Data Percent cell count reference ranges are not reported, since discordance with absolute values may lead to misinterpretation of CBC data. Current Interpretive Data was last revised on 2017. Basophil pct 0.1 % [facility] ([place]ISH) Comment: Interpretive Data Percent cell count reference ranges are not reported, since discordance with absolute values may lead to misinterpretation of CBC data. Current Interpretive Data was last revised on 2017. Blood 11/05/2024 12:5 9 PM CDT 11/05/2024 1:09 PM CDT us Kaley ARIZMENDI LAB BLOOD ORDERABLES Tanika l Result AUSTIN CUELLAR (ANISH) 1 [facility] Department of Laboratories [place], [place] [id number] * (ABNORMAL) Pro B-type natriuretic peptide (11/05/2024 [...] Heart J. 2006:27:330-337. 2. David RW, Gabriella AM. J. AM Gianna Cardiol: Cardiovasc Imag. 2009;2: 216- 225. Interpretive Data Last Revised Date: 2017. Blood 11/05/2024 12:5 9 PM CDT 11/05/2024 1:09 PM CDT Kaley ARIZMENDI LAB BLOOD ORDERABLES Tanika ewing Result AUSTIN CUELLAR ([place]) 1 [facility] Department of Laboratories [place], [place] [id number] * (ABNORMAL) CBC with auto differential (11/05/2024 12:59 PM CDT) WBC 9.83 3.80 - 9.90 K/cumm Hgb 12.9 11.9 - 15.5 g/dL [facility] ([place]) Hct 40.5 35.6 - 45.5 % [facility] ([place]) Plt 172 150 - 400 K/cumm [facility] ([place]) MPV 10.2 9.1 - 12.3 fL [facility] ([place]) RBC 4.42 3.90 - 5.20 M/cumm [facility] ([place]) MCV 91.6 81.3 - 96.4 fL [facility] ([place]) MCH 29.2 27.1 - 33.3 pg [facility] ([place]ISH) MCHC 31.9(L) 32.3 - 35.7 g/dL [facility] ([place]ISH) RDW CV 15.0(H) 11.1 - 14.9 % [facility] ([place]ISH) RDW SD 50.9(H) 35.7 - 48.1 fL [facility] ([place]ISH) NRBC abs 0.00 0.00 - 0.01 K/cumm [facility] ([facility] Blood 11/05/2024 12:5 9 PM CDT 11/05/2024 1:09 PM CDT Kaley ARIZMENDI LAB BLOOD ORDERABLES Tanika l Result [facility] (ANISH) 1 [facility] Department [place] [address] * Comprehensive metabolic panel (11/05/2024 12:59 PM CDT) Sodium 141 135 - 145 mmol/L [facility] (ANISH) Potassium, pl 4.2 3.3 - 4.9 mmol/L [facility] ([facility]) Chloride 105 97 - 110 mmol/L [facility] ([facility]) CO2 24 22 - 32 mmol/L [facility] ([place]) Anion gap 12 2 - 15 mmol/L [facility] (ANISH) BUN 19 6 - 25 mg/dL [facility] (ANISH) Creatinine 0.86 0.60 - 1.10 mg/dL [facility] (ANISH) Glucose 121 70 - 199 mg/dL [facility] (ANISH) Comment: Interpretive Data Fasting glucose [...] ORDERABLES Tanika l Result Performing Organization Address [facility] Co de Phone Number AUSTIN CUELLAR (ANISH) 1 [facility] Department [place] [address] * ECG 12 lead (11/05/2024 12:54 PM CDT) 11/05/2024 12:5 4 PM CDT Narrative [facility] - 11/05/2024 1:57 PM CDT Vent Rate: 65 bpm RR Interval: 921 msec [place] Interval: 152 msec QRS Duration: 93 msec QT Interval: 394 msec QTC Interval: 405 msec P-R-T [place]: 60 - 50 - 52 degrees IMPRESSION: SINUS RHYTHM NORMAL ECG NO CHANGE FROM PREVIOUS TRACING NOTED Electronically Signed By: Mainor Lopez MD Brenda Mast MD ECG ORDERABLES Final Res ult Performing Organization Address City/[facility] Co de Phone Number [facility] * ECG 12 lead (11/03/2024 11:55 AM CDT) 11/03/2024 11:5 5 AM CDT Narrative [facility] - 11/04/2024 6:49 AM CDT Vent Rate: 75 bpm RR Interval: 796 msec [place] Interval: 161 msec QRS Duration: 84 msec QT Interval: 380 msec QTC Interval: 409 msec P-R-T [place]: 56 - 53 - 55 degrees IMPRESSION: SINUS RHYTHM LOW QRS VOLTAGE IN PRECORDIAL LEADS [QRS DEFLECTION < 1.0 mV IN CHEST LEADS] BORDERLINE ECG NO CHANGE FROM PREVIOUS TRACING NOTED Electronically Signed By: Mainor Lopez MD Imer Chang MD ECG ORDERABLES Final Result Performing Organization Address [facility] de Phone Number [facility] * XR CHEST 1 VIEW PORTABLE [...] Rubio Gallego M.D. CH: ZULLY Report ID: [id number] Reading Location: [id number] Procedure Note Rubio Gallego Jr., MD - [...] Rubio Gallego M.D. CH: ZULLY Report ID: [id number] Reading Location: [place] [address] Imer Chang MD IMG XR PROCEDURES Final Resu lt * Influenza A/B, RSV, and COVID-19 PCR Nasopharyngeal (11/03/2024 11:47 AM CDT) COVID-19 RNA Negative Negative Influenza A RNA Negative Negative [facility] ([place]) Influenza B RNA Negative Negative [facility] ([place]) RSV RNA Negative Negative [facility] ([place]) Comment: Interpretive data: Testing performed by [facility]. This test is performed using the Surplex Xpert Xpress CoV-2/Flu/RSV plus assay. This is a multiplex, real- time reverse transcriptase PCR assay intended for the qualitative detection of nucleic acid from SARS-CoV-2, influenza A, influenza B, and respiratory syncytial virus. This assay has been cleared by the [place] Food and Drug administration. The performance characteristics have been verified by the [facility]. Results must be considered in the clinical context, and a negative result does not rule out infection. Interpretive Data last revised 2023 Nasopharyngeal 11/03/2024 11 :47 AM CDT 11/03/2024 11:52 AM CDT Narrative [facility] ([place]) - 11/03/2024 12:40 PM CDT Is the Patient experiencing symptoms consistent with COVID?->Yes Imer Chang MD LAB MICROBIOLOGY - GENERAL O RDERABLES Final Result Performing Organization Address [facility] Co de Phone Number AUSTIN CUELLAR ([place]) 1 [facility] [place] [address] * Troponin T high-sensitivity series (baseline, 2hr, 4hr, 6hr) (11/03/2024 11:45 AM CDT) Pathologist [facility] Trop T hs 9 <=14 ng/L Comment: Interpretive Data For further hscTnT resources including the diagnostic algorithm and an aid in interpretation, copy and paste this link: https://nrl.testcatalog.org/show/hsTrop Current Interpretive Data last revised 2020. Blood 11/03/2024 11:4 5 AM CDT 11/03/2024 11:51 AM CDT Imer Chang MD LAB BLOOD ORDERABLES Final R esult Performing Organization Address [facility] Co de Phone Number AUSTIN CUELLAR ([place]) 1 [facility] [place] [address] * Sepsis Lactate w/ Reflex (11/03/2024 11:45 AM CDT) [facility] Sepsis Lactate 1.7 0.7 - 2.0 mmol/L Blood 11/03/2024 11:4 5 AM CDT 11/03/2024 11:48 AM CDT Imer Chang MD LAB BLOOD ORDERABLES Final R esult Performing Organization Address [facility] Co de Phone Number AUSTIN CUELLAR ([place]) 1 [facility] [place] [address] * eGFR (11/03/2024 11:45 AM CDT) [facility] eGFR 72 >=60 mL/min/1. 73 m2 Comment: [...] MD LAB BLOOD ORDERABLES Final R esult [facility] ([place]) 1 [facility] Department of Laboratories [place], [place] [address] * Differential, auto (11/03/2024 11:45 AM CDT) Neutrophil abs 3.34 1.50 - 6.50 K/cumm Imm gran abs 0.01 0.00 - 0.10 K/cumm [facility] ([place]ISH) Lymphocyte abs 1.36 0.80 - 3.30 K/cumm [facility] ([place]ISH) Monocyte abs 0.60 0.20 - 0.80 K/cumm [facility] ([place]) Eosinophil abs 0.06 0.00 - 0.50 K/cumm [facility] ([place]) Basophil abs 0.01 0.00 - 0.10 K/cumm [facility] (ANISH) Neutrophil pct 62.0 % [facility] (ANISH) Comment: Interpretive [...] Final R esult AUSTIN ALISA (ANISH) 1 [facility] Department [place] [address] * Pro B-type natriuretic peptide (11/03/2024 11:45 [...] BLOOD ORDERABLES Final R esult AUSTIN CUELLAR (BRY[place]) 1 [facility] [place] [address] * (ABNORMAL) CBC with auto differential (11/03/2024 [...] - 0.01 K/cumm [facility] (ANISH) Blood 11/03/2024 11:4 5 AM CDT 11/03/2024 11:48 AM CDT Imer Chang MD LAB BLOOD ORDERABLES Final R esult Performing Organization Address [facility] de Phone Number [facility] ([place]) 1 [facility] [employer] [place] [address] * (ABNORMAL) Blood gas, venous (11/03/2024 11:45 [...] ORDERABLES Final R esult Performing Organization Address City/[facility]/ZIP Co de Phone Number AUSTIN CUELLAR (BRYANT) 1 [facility] [place] [address] * Comprehensive metabolic panel (11/03/2024 11:45 AM [...] MD LAB BLOOD ORDERABLES Final R esult [facility] 1 [facility] Department [place] [address] * MCT Mobile Cardiac Telemetry Event Monitor (10/02/2024 12:05 PM CDT) Anatomical Region Laterality Modality Electrocardiogra phy Narrative 10/22/2024 1:20 PM CDT AMBULATORY BAG END SEWER REPORT Patient Name: Alberto Stein Date of [...] was used to complete this document, therefore, top dyeing machine loader variances may occur. Karan Ngo MD, [facility] 10/22/24 Procedure Note Karan Ngo MD - 10/22/2024 AMBULATORY BAG END SEWER REPORT Patient Name: Alberto Stein Date of [...] software was used to complete this document, therefore,top dyeing machine loader variances may occur. Karan Ngo MD, [facility] 10/22/24 Result [facility] Karan Ngo MD CV CARDIAC SERVICES PROCEDURES [...] blood 10/02/2024 1 0:59 AM CDT Result [facility] Karan Ngo MD POINT OF CARE TEST ORDERABLES Fi nal Result * Electrocardiogram Report (10/02/2024) 10/02/2024 Result [facility] Karan Ngo MD ECG ORDERABLES Edited Result - Final * POCT hemoglobin A1c (03/16/2020 2:10 PM LEI SELLER) Hemoglobin A1C, POC 7.1 Blood specimen (specimen) 03/16/2020 2:10 PM LEI SELLER Result [facility] Abena Ronquillo MD POINT OF CARE TEST ORDERABLES Final Result * DIABETES EYE EXAM (02/06/2019) [facility] Diabetic Eye Exam Unknown us Historical Provider HEALTH MAINTENANCE Final Result from Last 3 Months or Most Recently Relevant to Health Maintenance Insurance Member Subscriber Plan / Payer (Ef fective 2022-Present) Name:Alberto Stein Relation to Subscriber:Self Name:WhitleyJessicasia Wren Payer ID:[id number] (NAIC) Type:[employer] Address: [place] [phone] Member Subscriber Plan / Payer (Ef fective 2022-Present) Name:Whitley Alberto Siena Relation to Subscriber:Self Name:Whitley Alberto Siena Payer ID:[id number] (NAIC) Type:[employer] Address: [place] [phone] Advance Directives For more information, please contact: [phone] * Full Code (Latest Code Status on File) Date Activated Date Inactivated Comments 11/05/2024 4:12 PM 11/07/2024 3:15 PM * Full Code Date Activated Date Inactivated Comments 10/10/2020 6:56 PM 10/12/2020 5:57 PM * Full Code Date Activated Date Inactivated Comments 11/30/2018 7:41 AM 11/30/2018 1:32 PM * Full Code Date Activated Date Inactivated Comments 04/06/2017 3:48 PM 04/07/2017 2:06 PM Care Teams Floorleader Relationship Specialty Start Date End Date Beatriz Cuevas NP [address] [place] [address] PCP - General Nurse Practitioner 10/02/24 Karan Ngo MD [address] [place] [address] Consulting Physician Cardiology 11/02/18
--- OUTSIDE RECORDS SUMMARY | 2024-11-14 11:04 | XMS_ITS | Encounter Summary ---
Author Organization [facility] Address [address] [place] [address] Care Team Providers Care Unit Director Name Role Phone Karan Ngo MD Unavailable Abdulkadir Craft MD Unavailable Carole Neal MD Unavailable [phone] Rohith Sen MD Primary Care Provider [phone] Encounter Details Date Type Department Care Team (Late st Contact Info) Description 11/17/2015 Abstract [facility] CONVERSION [address] [place], [place] [id number] , Olinda Polo MD Social History Tobacco [...] on filedocumented in this encounter Care Teams Unit Director Relationship Specialty Start Date End Date Rohith Sen MD [address] [place] [address] PCP - General FAMILY PRACTICE 02/03/23 Karan Ngo MD [address] [address] CARDIOVASCULAR DISEASE 01/29/21 [place] [address] [place] [address] Referring Physician RHEUMATOLOGY 01/29/21 Carole Neal MD [address] [place] [address] PULMONARY DISEASE 01/29/21 documented as of this encounter
--- OUTSIDE RECORDS SUMMARY | 2024-11-14 11:04 | XMS_ITS | Clinical Summary ---
Author Organization [facility] Address [address] [facility] [place] [address] Phone Care Team Providers Care Medical Reception Name Role Phone Joseph Sweet MD Primary Care Provider [phone] Kenneth Ward DPM Unavailable [phone] Hermann Olivia DO Unavailable [phone] Naida Odonnell MD Unavailable Allergies Active Allergy [...] 9:39 AM CDT Height 160 cm (5' 3) 02/03/2016 9:39 AM CDT Body Mass Index 36.14 02/03/2016 9:39 AM CDT Plan of Treatment Health Maintenance Due Date Last Done Comments Diabetes: Eye Exam 1956 Diabetes: Foot Exam 1956 Diabetes: Hemoglobin A1c 1955 Hepatitis C Virus (HCV) Screening 1955 TdaP Immunization 1956 Diabetes: Nephropathy Screening 1974 Pneumococcal Immunization (5 0+ years) (1 of 2 - PCV) 11/16/1975 Cologuard 2001 Colonoscopy 2001 Colorectal Cancer Screening 2001 Immunochemical Fecal Occult Blood 2001 Zoster Immunization (1 of 2) 2006 Respiratory Syncytial Virus (RSV) Immunization (Adult) (1 - Risk 60-74 years 1-dose series) 2016 SARS-COV-2 Immunization (1 - 2023- season) 2023 Influenza Immunization (#1) 2024 Hepatitis B Immunization Aged Out No longer eligible based on patient's age to complete this topic Human Papillomavirus (HPV) Immunization Aged Out No longer eligible b ased on patient's age to complete this topic Meningococcal Immunization (ACWY) Aged Out No longer eligible based on patient's age to complete this topic Rotavirus Immunization Aged Out No lo nger eligible based on patient's age to complete this topic Insurance [facility] MEDIC[facility] [phone] Care Teams Medical Reception Relationship Specialty Start Date End Date Joseph Sweet MD [address] [place] [id number] PCP - General Family Medicine 06/12/15 Kenneth Ward DPM [address] [place] [address] Podiatry 06/12/15 Hermann Olivia [place] [address] Gastroenterology 02/02/16 Naida Odonnell [place] [address] Family Medicine 02/02/16
== END 2024-11-14 10:59 | disposition home or self-care (01) ==
LOC: ANHBWCIMG 10:59
PROVIDERS: PCP Nurse Practitioner Adult Health; Visit Provider Nurse Practitioner Adult Health
DX: J44.1 Chronic obstructive pulmonary disease with (acute) exacerbation (principal); Z87.891 Personal history of nicotine dependence
CPT/HCPCS: 71046

== ENCOUNTER 2024-12-17 10:35 | Outpatient (CLI) | payer MEDICARE, SELFPAY ==
--- OUTSIDE RECORDS SUMMARY | 2024-12-17 11:07 | XMS_ITS | Clinical Summary ---
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 90 tablet 1 08/28/19 25 Active glycopyrrolate-fo rmoteroL (BEVESPI AEROSPHERE) 9-4.8 mcg inhaler Inhale 2 puffs 2 (two) times a day 1 each 11/08/19 25 Active nicotine (NICODERM CQ) [address] 1 patch on the skin daily for 24 hours 30 patch 2 11/08/19 25 Active varenicline tartrate (CHANTIX JUAN C) 0.5 mg (11)- 1 mg (42) tablet Take 0.5 mg by mouth 2 (two) times a day 53 tablet 11/08/19 25 025 Active predniSONE (DELTASONE) 10 mg tabletIndications :COPD Exacerbation Take 4 tablets (40 mg) by mouth daily for 1 day, THEN 3 tablets (30 mg) daily for 3 days, THEN 2 tablets (20 mg) daily for 3 days, THEN 1 tablet (10 mg) daily for 3 days, THEN 0.5 tablets (5 mg) daily for 3 days. 24 tablet 11/09/19 25 025 Active Problems Problem Noted Date Diagnosed Date COPD exacerbation ([facility]) 10/10/2020 Acute on chronic respiratory failure with hypoxe brian 10/10/2020 Pancreatic cyst 03/23/2020 Type 2 diabetes mellitus wit h hyperglycemia, with long-term current use of insulin 03/16/2020 Assessment & Plan (03/16/2020 2:22 PM EMPLOYEE REPRESENTATIVE): Diagnosed in 2013- Had recurrent pancreatitis. Started [...] 03/16/2020 Assessment & Plan (03/16/2020 2:23 PM EMPLOYEE REPRESENTATIVE): Complicated with CAD Controlled with medication - [...] (11/02/2018): Added automatically from request for surgery [id number] Assessment & Plan (12/11/2018 5:10 PM CDT): [...] - 11/07/2024 11:10 AM CDT Hospital Encounter [facility] Acute Medicine 1 [place] [address] Ruba Pratt MD COPD exacerbation (HCC) (Primary Dx) Discharge Disposition: Discharge to home or self care 11/03/2024 11:39 AM CDT - 11/03/2024 1:05 PM CDT Emergency [facility] Emergency Department 1 [place] [address] Imer Chang MD COPD exacerbation (HCC) (Primary Dx) Discharge Disposition: Discharge to home or self care 10/02/2024 11:30 AM CDT Office Visit [facility] Medical [facility] Cardiology [address] [place] [phone] Karan Ngo MD Palpitations (Primary Dx); 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; History of non-ST elevation myocardial infarction (NSTEMI); Status post angioplasty with stent; Hypertension associated with diabetes (HCC); Lipid screening; Tobacco abuse 10/02/2024 10:30 AM CDT Ancillary Procedure [facility] Medical [facility] Cardiology [address] [place] [phone] Palpitations from Last 3 Months Surgical History Surgery Date Site/Laterality Comments CARDIAC STENT PLACEMENT CHOLECYSTECTOMY TONSILLECTOMY JOINT REPLACEMENT bilateral knees HERNIA REPAIR X 3 GANGLION CYST EXCISION X 3 Medical History Medical History Date Comments Hyperlipidemia GERD (gastroesophageal reflux disease) Diverticulitis Sleep apnea Valvular disease Diabetes mellitus (HCC) AAA (abdominal aortic aneurysm) Neuropathy RA (rheumatoid arthritis) Rheumatoid arthritis (HCC) Psoriatic arthritis (HCC) Cancer (HCC) childhood leukem ia Cataract Myocardial infarction (HCC) Coronary artery disease stents x feb 2018 last 2 placed / 2016 COPD (chronic obstructive pu lmonary disease) MCMAHON / CANDICE/ does not wear CPA P Emphysema lung Emphysema of lung Type 2 diabetes mellitus Rheumatoid arthritis (HCC) and o steoarthritis / [...] drink = 0.6 oz pur e alcohol) [facility] Utilities Answer Date Recorded In the past 12 months has e [employer], gas, oil, or water [employer] threatened to shut off services in your home? No 11/06/2024 Social Connection and Isolation Panel Answer Date Recorded In a typical week, how many times do you talk on the phone with family, friends, or neighbors? More than three times a week 11/06/2024 How often do you get togethe r with friends or relatives? More than three times a week 11/06/2024 How often do you attend chur ch or yarsanism services? More than 4 times per year 11/06/2024 Do you belong to any clubs o r organizations such as baptist groups, unions, fraternal or athletic groups, or [...] any time in the past [address] [facility], were you homeless or living in a penitentiary (including now)? No 11/06/2024 Personal Safety Answer Date Recorded Have you ever been in or are you currently in a harmful physical or emotional relationship or is someone making you feel afraid or unsafe? Denies 11/05/2024 Comments No Sex and Gender Information Value Date Recorded Sex Assigned at Not on file Legal Sex Female 1:49 PM EMPLOYEE REPRESENTATIVE Gender Identity Not on file Sexual [...] 06/28/19 19 Medical Devices Implanted Type Area Regulatory Submissions Specialist Device Identifier Shelf Expiration Date Model / Serial / Lot System Coronary Stent Synergy Pebax Everolimus Eluting [place] Chromium Plga L12 Mm L144 Cm Od2.25 Mm Radiopaque 1 Access Port Inflation Lumen Accepts .014 In Guidewire - [id number] Implanted:Qty: 1 on 04/06/2017 by Karan Ngo MD at [facility] [employer] [facility] 12/19/2017 [id number] / / [id number] Procedures Procedure Name Priority Date/Time Associated Diagnosis [...] REPORT Routine 10/02/2024 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 POCT HEMOGLOBIN A1C Routine 03/16/2020 2 :10 PM EMPLOYEE REPRESENTATIVE Type 2 diabetes mellitus with hyperglycemia, with long-term current use of insulin ([facility]) DIABETES EYE EXAM Routine 02/06/2019 from Last 3 Months or Most Recently Relevant to Health Maintenance Results * (ABNORMAL) POCT glucose (11/07/2024 7:34 AM CDT) Glucose, POC 235(H) 70 - 199 mg/dL Blood 11/07/2024 7:34 AM CDT 11/07/2024 7:34 AM CDT us Ruba Pratt MD LAB POCT ORDERABLES - DEVICE Final Result [facility]) 1 [facility] [place] [address] * (ABNORMAL) POCT glucose (11/07/2024 1:57 AM CDT) Glucose, POC 201(H) 70 - 199 mg/dL Blood 11/07/2024 1:57 AM CDT 11/07/2024 1:57 AM CDT us Ruba Pratt MD LAB POCT ORDERABLES - DEVICE Final Result Performing Organization Address [facility] Co de Phone Number [facility] GómezAXIS) 1 [facility] [address] [place] [address] * (ABNORMAL) POCT glucose (11/06/2024 7:34 PM CDT) Glucose, POC 282(H) 70 - 199 mg/dL Blood 11/06/2024 7:34 PM CDT 11/06/2024 7:34 PM CDT us Ruba Pratt MD LAB POCT ORDERABLES - DEVICE Final Result Performing Organization Address [facility] de Phone Number [facility] CUELLAR (AXIS) 1 [facility] [address] [place] [address] * (ABNORMAL) POCT glucose (11/06/2024 4:31 PM CDT) Glucose, POC 253(H) 70 - 199 mg/dL Blood 11/06/2024 4:31 PM CDT 11/06/2024 4:31 PM CDT us Ruba Pratt MD LAB POCT ORDERABLES - DEVICE Final Result Performing Organization Address [facility] Co de Phone Number [facility] (AXIS) 1 [facility] [address] [place] [address] * (ABNORMAL) POCT glucose (11/06/2024 11:12 AM CDT) Glucose, POC 214(H) 70 - 199 mg/dL Blood 11/06/2024 11:1 2 AM CDT 11/06/2024 11:12 AM CDT Ruba Pratt MD LAB POCT ORDERABLES - DEVICE Final Result Performing Organization Address City[facility] Co de Phone Number [facility] CUELLAR (ANISH) 1 [facility] [address] [place] [address] * (ABNORMAL) POCT glucose (11/06/2024 7:36 AM CDT) Glucose, POC 229(H) 70 - 199 mg/dL Blood 11/06/2024 7:36 AM CDT 11/06/2024 7:36 AM CDT us Ruba Pratt MD LAB POCT ORDERABLES - DEVICE Final Result Performing Organization Address [facility]/ZIP Co de Phone Number [facility] CUELLAR (AXIS) 1 [facility] [address] [place] [address] * (ABNORMAL) POCT glucose (11/06/2024 2:13 AM CDT) Glucose, POC 317(H) 70 - 199 mg/dL Blood 11/06/2024 2:13 AM CDT 11/06/2024 2:13 AM CDT Ruba Pratt MD LAB POCT ORDERABLES - DEVICE Final Result Performing Organization Address [facility]/ZIP Co de Phone Number [facility] (AXIS) 1 [facility] [address] [place] [address] * (ABNORMAL) POCT glucose (11/05/2024 11:17 PM CDT) Glucose, POC 362(H) 70 - 199 mg/dL Blood 11/05/2024 11:1 7 PM CDT 11/05/2024 11:17 PM CDT us Ruba Pratt MD LAB POCT ORDERABLES - DEVICE Final Result [facility] (ANISH) 1 [facility] [address] [place] [address] * (ABNORMAL) POCT glucose (11/05/2024 8:08 PM CDT) Glucose, POC 338(H) 70 - 199 mg/dL Blood 11/05/2024 8:08 PM CDT 11/05/2024 8:08 PM CDT Ruba Pratt MD LAB POCT ORDERABLES - DEVICE Final Result Performing Organization Address [facility]/ZIP Co de Phone Number [facility] CUELLAR (ANISH) 1 [facility] [place] [address] * (ABNORMAL) POCT glucose (11/05/2024 7:25 PM CDT) Glucose, POC 389(H) 70 - 199 mg/dL Blood 11/05/2024 7:25 PM CDT 11/05/2024 7:25 PM CDT Ruba Pratt MD LAB POCT ORDERABLES - DEVICE Final Result Performing Organization Address [facility] Co de Phone Number [facility]UE[facility] (AXIS) 1 [facility] Department of [address] [place] [address] * Troponin T high-sensitivity 6-hour (11/05/2024 6:25 PM CDT) Trop T hs 8 <=14 ng/L [facility] (ANISH) Comment: Interpretive Data For further hscTnT resources including the diagnostic algorithm and an aid in interpretation, copy and paste this link: https://nrl.testcatalog.org/show/hsTrop Current Interpretive Data last revised 2020. Trop T hs delta -2 ng/L [facility] (ANISH) Trop T hs interp Insignificant [facility] (ANISH) Blood 11/05/2024 6:25 PM CDT 11/05/2024 6:30 PM CDT Kaley ARIZMENDI LAB BLOOD ORDERABLES Tanika l Result [facility]UELLAR (ANISH) 1 [facility] Department [place] [address] * (ABNORMAL) POCT glucose (11/05/2024 5:22 PM CDT) [facility] Glucose, POC 247(H) 70 - 199 mg/dL Blood 11/05/2024 5:22 PM CDT 11/05/2024 5:22 PM CDT Ruba Pratt MD LAB POCT ORDERABLES - DEVICE Final Result Performing Organization Address [facility] Co de Phone Number [facility] (AXIS) 1 [place] [address] * Troponin T high-sensitivity 4-hour (11/05/2024 4:52 PM CDT) [facility] Trop T hs 7 <=14 ng/L [facility]UE[facility] (AXIS) Comment: Interpretive Data For further hscTnT resources [...] BLOOD ORDERABLES Tanika l Result [facility] (AXIS) 1 [facility] [address] [place] [address] * eGFR (11/05/2024 4:52 PM CDT) [facility] eGFR 81 >=60 mL/min/1. 73 m2 Comment: [...] LAB BLOOD ORDERABLES Tanika ewing Result [facility] (ANISH) 1 [facility] Department [place] [address] * (ABNORMAL) CBC without differential (11/05/2024 4:52 PM CDT) WBC 7.70 3.80 - 9.90 K/cumm Hgb 12.3 11.9 - 15.5 g/dL [facility] (ANISH) Hct 38.5 35.6 - 45.5 % [facility] (ANISH) Plt 166 150 - 400 K/cumm [facility] (ANISH) MPV 10.4 9.1 - 12.3 fL [facility] (ANISH) RBC 4.19 3.90 - 5.20 M/cumm [facility] (ANISH) MCV 91.9 81.3 - 96.4 fL [facility] (ANISH) MCH 29.4 27.1 - 33.3 pg [facility] (ANISH) MCHC 31.9(L) 32.3 - 35.7 g/dL [facility] (ANISH) RDW CV 14.9 11.1 - 14.9 % [facility] (ANISH) RDW SD 51.0(H) 35.7 - 48.1 fL [facility] (ANISH) NRBC abs 0.00 0.00 - 0.01 K/cumm [facility] (ANISH) Blood 11/05/2024 4:52 PM CDT 11/05/2024 5:09 PM CDT us Kaley ARIZMENDI LAB BLOOD ORDERABLES Tanika l Result [facility] (ANISH) 1 [facility] Department [place] [address] * (ABNORMAL) Comprehensive metabolic panel (11/05/2024 4:52 PM CDT) Sodium 138 135 - 145 mmol/L [facility] (ANISH) Potassium, pl 4.0 3.3 - [...] ORDERABLES Tanika l Result Performing Organization Address [facility]/ZIP Co de Phone Number [facility] (ANISH) 1 [facility] [place] [address] * Troponin T high-sensitivity 2-hour (11/05/2024 3:08 [...] ARIZMENDI LAB BLOOD ORDERABLES Tanika l Result [facility] 1 [facility] [place] [address] * Blood gas, venous (11/05/2024 2:24 PM CDT) pH, Venous 7.32 7.32 - 7.43 PCO2, Venous 49 40 - 50 mmHg [facility] (ANISH) PO2, Venous 86 mmHg [facility] (AXIS) HCO3 Venous, Calculated 25 20 - 30 mmol/L [facility] ([facility]) BE, venous -1 mmol/L [facility] (AX[facility]) Comment: Interpretive Data No Reference Range Established Current Interpretive Data was last revised on 2017. Blood 11/05/2024 2:24 PM CDT 11/05/2024 2:30 PM CDT Kaley ARIZMENDI LAB BLOOD ORDERABLES Tanika l Result [facility] (AXIS) 1 [facility] [place] [address] * Influenza A/B, RSV, and COVID-19 PCR Nasopharyngeal (11/05/2024 1:12 PM CDT) COVID-19 RNA Negative Negative Influenza A RNA Negative Negative [facility] (AXIS) Influenza B RNA Negative Negative [facility] (AXIS) RSV RNA Negative Negative [facility] (AXIS) Comment: Interpretive data: Testing performed by [facility]. This test is performed using the [employer] Xpert Xpress CoV-2/Flu/RSV plus assay. This is a multiplex, real- time reverse transcriptase PCR assay intended for the qualitative detection of nucleic acid from SARS-CoV-2, influenza A, influenza B, and respiratory syncytial virus. This assay has been cleared by the [place] Food and Drug administration. The performance characteristics have been verified by the [facility]. Results must be considered in the clinical context, and a negative result does not rule out infection. Interpretive Data last revised 2023 Nasopharyngeal 11/05/2024 1: 12 PM CDT 11/05/2024 1:14 PM CDT Narrative [facility] (AXIS) - 11/05/2024 1:52 PM CDT Is the Patient experiencing symptoms consistent with COVID?->Yes Kaley ARIZMENDI LAB MICROBIOLOGY - GENERA L ORDERABLES Final Result Performing Organization Address [facility]/ZIP Co de Phone Number [facility] (AXIS) 1 [facility] Department [place] [address] * XR Chest 1 Vw Portable (11/05/2024 [...] Carlos Grossman D.O. PS: PS Report ID: [id number] Reading Location: [id number] Procedure Note Carlos Grossman, DO - 11/05/2024 [...] Carlos Grossman D.O. PS: PS Report ID: [id number] Reading Location: [id number] Kaley ARIZMENDI IMG XR PROCEDURES Final R esult * Troponin T high-sensitivity series (baseline, 2hr, 4hr, 6hr) (11/05/2024 12:59 PM CDT) Trop T hs 10 <=14 ng/L [facility] (AXIS) Comment: Interpretive Data For further hscTnT resources including the diagnostic algorithm and an aid in interpretation, copy and paste this link: https://nrl.testcatalog.org/show/hsTrop Current Interpretive Data last revised 2020. Blood 11/05/2024 12:5 9 PM CDT 11/05/2024 1:09 PM CDT Kaley ARIZMENDI LAB BLOOD ORDERABLES Tanika l Result [facility] (AXIS) 1 [facility] Department [place] [address] * eGFR (11/05/2024 12:59 PM CDT) eGFR [...] us Kaley ARIZMENDI LAB BLOOD ORDERABLES Tanika gildardo Result [facility] (AX[facility]) 1 [facility] Department [place] [address] * (ABNORMAL) Differential, auto (11/05/2024 12:59 PM CDT) Neutrophil abs 7.70(H) 1.50 - 6.50 K/cumm Imm gran abs 0.04 0.00 - 0.10 K/cumm [facility] (ANISH) Lymphocyte abs 1.80 0.80 - 3.30 K/cumm [facility] (ANISH) Monocyte abs 0.27 0.20 - 0.80 K/cumm [facility] (ANISH) Eosinophil abs 0.01 0.00 - 0.50 K/cumm [facility] (ANISH) Basophil abs 0.01 0.00 - 0.10 K/cumm [facility] (ANSIH) Neutrophil pct 78.4 % [facility] [...] revised on 2017. Eosinophil pct 0.1 % [facility] (AXIS) Comment: Interpretive Data Percent cell count reference ranges are not reported, since discordance with absolute values may lead to misinterpretation of CBC data. Current Interpretive Data was last revised on 2017. Basophil pct 0.1 % [facility] (AXIS) Comment: Interpretive Data Percent cell count reference ranges are not reported, since discordance with absolute values may lead to misinterpretation of CBC data. Current Interpretive Data was last revised on 2017. Blood 11/05/2024 12:5 9 PM CDT 11/05/2024 1:09 PM CDT us Kaley ARIZMENDI LAB BLOOD ORDERABLES Tanika ewing Result [facility] (AXIS) 1 [facility] Department [place] [address] * (ABNORMAL) Pro B-type natriuretic peptide (11/05/2024 12:59 PM CDT) NT-proBNP 308(H) <=300 pg/mL [facility] (AXIS) Comment: Interpretive Comments: A. Dyspnea in Acute [...] 2. David RW, Gabriella LOPEZ. J. AM Gianan Cardiol: Cardiovasc Imag. 2009;2: 216- 225. Interpretive Data Last Revised Date: 2017. Blood 11/05/2024 12:5 9 PM CDT 11/05/2024 1:09 PM CDT us Kaley ARIZMENDI LAB BLOOD ORDERABLES Tanika l Result [facility] (ANISH) 1 [facility] Department [place] [address] * (ABNORMAL) CBC with auto differential (11/05/2024 12:59 PM CDT) WBC 9.83 3.80 - 9.90 K/cumm Hgb 12.9 11.9 - 15.5 g/dL [facility] (ANISH) Hct 40.5 35.6 - 45.5 [...] 0.01 K/cumm [facility] (ANISH) Blood 11/05/2024 12:5 9 PM CDT 11/05/2024 1:09 PM CDT us Kaley ARIZMENDI LAB BLOOD ORDERABLES Tanika l Result [facility] (ANISH) 1 [facility] Department [place] [address] * Comprehensive metabolic panel (11/05/2024 12:59 PM CDT) Sodium 141 135 - 145 mmol/L [facility] (ANISH) Potassium, pl 4.2 3.3 - 4.9 mmol/L [facility] (ANISH) Chloride 105 97 - 110 mmol/L [facility] (ANISH) CO2 24 22 - 32 mmol/L [facility] (ANISH) Anion gap 12 2 - 15 mmol/L [facility] (ANISH) BUN 19 6 - 25 mg/dL [facility] (ANISH) Creatinine 0.86 0.60 - 1.10 mg/dL [facility] (ANISH) Glucose 121 70 - 199 mg/dL [facility] (ANISH) [...] Tanika l Result [facility] (ANISH) 1 [facility] [place] [address] * ECG 12 lead (11/05/2024 12:54 PM CDT) 11/05/2024 12:5 4 PM CDT Narrative [facility] - 11/05/2024 1:57 PM CDT Vent Rate: 65 bpm RR Interval: 921 msec TX Interval: 152 msec QRS Duration: 93 msec QT Interval: 394 msec QTC Interval: 405 msec P-R-T [place]: 60 - 50 - 52 degrees IMPRESSION: SINUS RHYTHM NORMAL ECG NO CHANGE FROM PREVIOUS TRACING NOTED Electronically Signed By: Mainor Lopez MD Brenda Mast MD ECG ORDERABLES Final Res ult Performing Organization Address [facility] Co de Phone Number [facility] [employer] [facility] * ECG 12 lead (11/03/2024 11:55 AM CDT) 11/03/2024 11:5 5 AM CDT Narrative [facility] - 11/04/2024 6:49 AM CDT Vent Rate: 75 bpm RR Interval: 796 msec TX Interval: 161 msec QRS Duration: 84 msec QT Interval: 380 msec QTC Interval: 409 msec P-R-T [place]: 56 - 53 - 55 degrees IMPRESSION: SINUS RHYTHM LOW QRS VOLTAGE IN PRECORDIAL LEADS [QRS DEFLECTION < 1.0 mV IN CHEST LEADS] BORDERLINE ECG NO CHANGE FROM PREVIOUS TRACING NOTED Electronically Signed By: Mainor Lopez MD us Imer Chang MD ECG ORDERABLES Final Result [facility] * XR CHEST 1 VIEW PORTABLE (11/03/2024 [...] Electronically signed by Rubio Gallego M.D. CH: Report ID: [id number] Reading Location: [place] [address] Procedure Note Rubio Gallego Jr., MD - [...] 11:56 AM - Electronically signed by Rubio Sena.D. CH: ZULLY Report ID: [id number] Reading Location: [id number] Imer Chang MD IMG XR PROCEDURES Final Resu lt * Influenza A/B, RSV, and COVID-19 PCR Nasopharyngeal (11/03/2024 11:47 AM CDT) COVID-19 RNA Negative Negative Influenza A RNA Negative Negative [facility] (AXIS) Influenza B RNA Negative Negative [facility] ER [facility] (AXIS) RSV RNA Negative Negative [facility] (AXIS) Comment: Interpretive data: Testing performed by [facility]. This test is performed using the [employer] Xpert Xpress CoV-2/Flu/RSV plus assay. This is a multiplex, real- time reverse transcriptase PCR assay intended for the qualitative detection of nucleic acid from SARS-CoV-2, influenza A, influenza B, and respiratory syncytial virus. This assay has been cleared by the [place] Food and Drug administration. The performance characteristics have been verified by the [facility]. Results must be considered in the clinical context, and a negative result does not rule out infection. Interpretive Data last revised 2023 Nasopharyngeal 11/03/2024 11 :47 AM CDT 11/03/2024 11:52 AM CDT Narrative [facility] (AXIS) - 11/03/2024 12:40 PM CDT Is the Patient experiencing symptoms consistent with COVID?->Yes Imer Chang MD LAB MICROBIOLOGY - GENERAL O RDERABLES Final Result [facility] (AXIS) 1 [facility] Department of Laboratories [place], [place] [id number] * Troponin T high-sensitivity series (baseline, 2hr, [...] BLOOD ORDERABLES Final R esult [facility] (AXIS) 1 [facility] [place] [address] * Sepsis Lactate w/ Reflex (11/03/2024 11:45 AM CDT) Sepsis Lactate 1.7 0.7 - 2.0 mmol/L Blood 11/03/2024 11:4 5 AM CDT 11/03/2024 11:48 AM CDT Imer Chang MD LAB BLOOD ORDERABLES Final R esult Performing Organization Address City[facility]/ZIP Co de Phone Number [facility] (AX[place]) 1 [facility] [place] [address] * eGFR (11/03/2024 11:45 AM CDT) eGFR 72 >=60 mL/min/1. 73 m2 Comment: [...] LAB BLOOD ORDERABLES Final R esult [facility] (AXIS) 1 [facility] [place] [address] * Differential, auto (11/03/2024 11:45 AM CDT) Neutrophil abs 3.34 1.50 - 6.50 K/cumm Imm gran abs 0.01 0.00 - 0.10 K/cumm [facility] ([facility]) Lymphocyte abs 1.36 0.80 - 3.30 K/cumm [facility] ([place]) Monocyte abs 0.60 0.20 - 0.80 K/cumm [facility] ([facility]) Eosinophil abs 0.06 0.00 - 0.50 K/cumm [facility] ([place]) Basophil abs 0.01 0.00 - 0.10 K/cumm [facility] ([facility]) Neutrophil pct 62.0 % [facility] ([facility]) Comment: Interpretive Data Percent cell count reference ranges are not reported, since discordance with absolute values may lead to misinterpretation of CBC data. Current Interpretive Data was last revised on 2017. Imm gran pct 0.2 % [facility] ([place]) Comment: Interpretive Data Percent cell count reference ranges are not reported, since discordance with absolute values may lead to misinterpretation of CBC data. Current Interpretive Data was last revised on 2017. Lymphocyte pct 25.3 % [facility] ([facility]) Comment: Interpretive Data Percent cell count reference ranges are not reported, since discordance with absolute values may lead to misinterpretation of CBC data. Current Interpretive Data was last revised on 2017. Monocyte pct 11.2 % [facility] ([facility]) Comment: Interpretive Data Percent cell count reference ranges are not reported, since discordance with absolute values may lead to misinterpretation of CBC data. Current Interpretive Data was last revised on 2017. Eosinophil pct 1.1 % FELIX CUELLAR (AXIS) Comment: Interpretive Data Percent cell count reference ranges are not reported, since discordance with absolute values may lead to misinterpretation of CBC data. Current Interpretive Data was last revised on 2017. Basophil pct 0.2 % AUSTIN CUELLAR (AXIS) Comment: Interpretive Data Percent cell count reference ranges are not reported, since discordance with absolute values may lead to misinterpretation of CBC data. Current Interpretive Data was last revised on 2017. Blood 11/03/2024 11:4 5 AM CDT 11/03/2024 11:48 AM CDT us Imer Chang MD LAB BLOOD ORDERABLES Final R esult AUSTIN CUELLAR (AXIS) 1 [facility] [place] [address] * Pro B-type natriuretic peptide (11/03/2024 11:45 [...] LAB BLOOD ORDERABLES Final R esult [facility] (ANISH) 1 [facility] [place] [address] * (ABNORMAL) CBC with auto differential (11/03/2024 11:45 AM CDT) WBC 5.38 3.80 - 9.90 K/cumm Hgb 13.6 11.9 - 15.5 g/dL [facility] (ANISH) Hct 41.9 35.6 - 45.5 % [facility] (ANISH) Plt 158 150 - 400 K/cumm [facility] (ANISH) MPV 10.3 9.1 - 12.3 fL [facility] (ANISH) RBC 4.59 3.90 - 5.20 [...] ORDERABLES Final R esult Performing Organization Address [facility] Co de Phone Number AUSTIN CUELLAR (ANISH) 1 [facility] [place] [address] * (ABNORMAL) Blood gas, venous (11/03/2024 11:45 [...] ORDERABLES Final R esult Performing Organization Address [facility] Co de Phone Number AUSTIN CUELLAR (AXIS) 1 [facility] [place] [address] * Comprehensive metabolic panel (11/03/2024 11:45 AM CDT) Sodium 136 135 - 145 mmol/L Potassium, pl 4.1 3.3 - 4.9 mmol/L [facility] (ANISH) Chloride 98 97 - 110 mmol/L [facility] (ANISH) CO2 25 22 - 32 mmol/L [facility] (ANISH) Anion gap 13 2 - 15 mmol/L [facility] (ANISH) BUN 10 6 - 25 mg/dL [facility] (ANISH) Creatinine 0.88 0.60 - 1.10 mg/dL [facility] (ANISH) Glucose 196 70 - 199 mg/dL [facility] (ANISH) Comment: Interpretive Data [...] LAB BLOOD ORDERABLES Final R esult [facility] (ANISH) 1 [facility] [place] [address] * MCT Mobile Cardiac Telemetry Event Monitor (10/02/2024 12:05 PM CDT) Anatomical Region Laterality Modality Electrocardiogra phy Narrative 10/22/2024 1:20 PM CDT AMBULATORY FURNITURE REPRODUCER REPORT Patient Name: Alberto Stein Date of [...] was used to complete this document, therefore, mask designer variances may occur. Karan Ngo MD, [facility] 10/22/24 Procedure Note Karan Ngo MD - 10/22/2024 AMBULATORY FURNITURE REPRODUCER REPORT Patient Name: Alberto Stein Date of [...] software was used to complete this document, therefore,mask designer variances may occur. Karan Ngo MD, [facility] 10/22/24 us Karan Ngo MD [facility] CARDIAC SERVICES PROCEDURES [...] Capillary blood 10/02/2024 1 0:59 AM CDT Karan Ngo MD POINT OF CARE TEST ORDERABLES Fi nal Result * Electrocardiogram Report (10/02/2024) 10/02/2024 Karan Ngo MD ECG ORDERABLES Edited Result - Final * POCT hemoglobin A1c (03/16/2020 2:10 PM EMPLOYEE REPRESENTATIVE) Pathologist [facility] Hemoglobin A1C, POC 7.1 Blood specimen (specimen) 03/16/2020 2:10 PM EMPLOYEE REPRESENTATIVE Abena Ronquillo MD POINT OF CARE TEST ORDERABLES Final Result * DIABETES EYE EXAM (02/06/2019) Pathologist [facility] Diabetic Eye Exam Unknown Wendy Wolff MD HEALTH MAINTENANCE Final Result from Last 3 Months or Most Recently Relevant to Health Maintenance Insurance [facility] MEDICARE ADVANTAGE [facility] MEDIC[facility] Address: [address] [address] [facility] Address: [address] [place] [id number] Advance Directives For more information, please contact: [phone] * Full Code (Latest Code Status on File) Date Activated Date Inactivated Comments 11/05/2024 4:12 PM 11/07/2024 3:15 PM * Full Code Date Activated Date Inactivated Comments 10/10/2020 6:56 PM 10/12/2020 5:57 PM * Full Code Date Activated Date Inactivated Comments 11/30/2018 7:41 AM 11/30/2018 1:32 PM * Full Code Date Activated Date Inactivated Comments 04/06/2017 3:48 PM 04/07/2017 2:06 PM Care Teams Brickmason Apprentice Relationship Specialty Start Date End Date Beatriz Cuevas NP [address] [place] [address] PCP - General Nurse Practitioner 10/02/24 Karan Ngo MD [address] [place] [address] [facility], [place] [address] [place] [address] Consulting Physician Cardiology 11/02/18
--- OUTSIDE RECORDS SUMMARY | 2024-12-17 11:07 | XMS_ITS | Encounter Summary ---
Author Organization 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
--- OUTSIDE RECORDS SUMMARY | 2024-12-17 11:07 | XMS_ITS | Encounter Summary ---
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 03/05/2021 06/08/2021 07/03/2021 3:[address] COVID: Suspected 11/03/2024 11/03/2024 11/03/2024 12:41 PM CDT COVID: Suspected 11/05/2024 11/05/2024 11/05/2024 1:53 PM CDT documented as of this encounter Care Teams Cleaner Operator Relationship Specialty Start Date End Date Gin Wilson MD [address] [place] [address] [place] [address] [place] [address] PCP - General Family Practice 06/19/19 01/31/21 Gin Wilson MD [address] [place] [address] [place] [address] [place] [address] PCP - General Family Practice 02/01/21 12/04/23 Rohith Sen MD [address] [place] [address] [place] [address] [place] [address] PCP - General Family Practice 12/05/23 10/01/24 Beatriz Cuevas NP [address] [place] [address] PCP - General Nurse Practitioner 10/02/24 Karan Ngo MD [address] [place] [address], [place] [address] [place], [place] [id number] Consulting Physician Cardiology 11/02/18 documented as of this encounter
--- OUTSIDE RECORDS SUMMARY | 2024-12-17 11:07 | XMS_ITS | Clinical Summary ---
Author Organization [facility] Address [address] [facility] [place] [address] Phone Care Team Providers Care Breakfast Manager Name Role Phone Joseph Sweet MD Primary Care Provider [phone] Kenneth Ward DPM Unavailable [phone] Hermann Olivia DO Unavailable [phone] Naida Odonnell MD Unavailable Allergies Active [...] patient's age to complete this topic Insurance [facility] MEDICARE Care Teams Breakfast Manager Relationship Specialty Start Date End Date Joseph Sweet MD [address] [place] [address] PCP - General Family Medicine 06/12/15 Kenneth Ward DPM [address] [place] [address] Podiatry 06/12/15 Hermann Olivia [place] [address] Gastroenterology 02/02/16 Naida Odonnell MD [address] [place] [address] Family Medicine 02/02/16
[2024-12-17 19:20] LABS: Alanine Aminotransferase 34 U/L (6-35); Albumin Level 4.0 g/dL (3.5-5.1); Alkaline Phosphatase 87 U/L (38-126); Anion Gap 4 mmol/L (4-12); Aspartate Amino Transferase 52 U/L (14-36); Bilirubin,Total 0.3 mg/dL (0.2-1.3); Blood Urea Nitrogen 19 mg/dL (7-17); Calcium 9.2 mg/dL (8.4-10.2); Carbon Dioxide 32 mmol/L (22-30); Chloride 104 mmol/L (98-107); Cholesterol 147 mg/dL (0-200); Estimated Glomerular Filt Rate > 60; Glucose 74 mg/dL (65-110); HDL Direct 49 mg/dL; Potassium 3.9 mmol/L (3.4-5.0); Sodium 140 mmol/L (137-145); Total Protein 6.9 g/dL (6.3-8.2); Triglycerides 176 mg/dL (<150)
[2024-12-17 19:40] LABS: MALB Creatinine Ratio 8.2 mg/g (0-30)
[2024-12-17 20:54] LABS: Hemoglobin A1C 8.5 % (<5.7)
== END 2024-12-17 10:36 | disposition home or self-care (01) ==
PROVIDERS: PCP Nurse Practitioner Adult Health; Visit Provider Nurse Practitioner Adult Health
DX: K85.90 Acute pancreatitis without necrosis or infection, unspecified (principal); E11.69 Type 2 diabetes mellitus with other specified complication; E55.9 Vitamin D deficiency, unspecified; Z79.4 Long term (current) use of insulin
CPT/HCPCS: 36415; 80053; 80061; 82043; 82306; 82565; 83036

== ENCOUNTER 2025-01-06 11:58 | Emergency (ER) | payer MEDICARE, SELFPAY ==
[2025-01-06] VITALS (38 sets, daily range): BP systolic 103–142; BP diastolic 63–89; PULSE 58–98; RESP 12–30; TEMP 36.6; O2SAT 93–100
--- NOTE | ~2025-01-06 | XR_ITS ---
Examination: XR chest 2V Clinical History: chest pain Comparison: 11/14/2024 Technique: PA and Lateral Findings: Cardiomediastinal silhouette normal size and configuration. Lungs clear. No acute bony abnormality. IMPRESSION: 1. No acute cardiopulmonary findings. Reviewed, dictated and finalized at location R.
--- NOTE | 2025-01-06 12:04 | ECG_ITS ---
Test Date: 2025-01-06 12:11:17 Measurements Intervals Eighty Four Rate: 73 P: 59 UT: 164 QRS: 52 QRSD: 84 T: 48 QT: 386 QTc: 428 Interpretive Statements SINUS RHYTHM LOW QRS VOLTAGE IN PRECORDIAL LEADS [QRS DEFLECTION < 1.0 mV IN CHEST LEADS] ABNORMAL ECG Compared to ECG 07/28/2024 10:39:35 No significant changes Electronically Signed On 01-06-2025 12:55:29 CDT by Salinas Murray M.D.
[2025-01-06] MEDS: ASPIRIN 81 MG CHEWABLE TABLET 324 MG PO (12:13)
[2025-01-06 12:24] LABS: Hematocrit 38.1 % (37.0-47.0); Hemoglobin 12.5 g/dL (12.0-15.0); Immature Granulocyte Percent A 0.4 % (0-0.5); Lymphocytes Absolute Auto 1.33 K/mm3 (0.9-3.2); Mean Corpuscular HGB Conc 32.8 g/dl (32-36); Mean Corpuscular Hemoglobin 29.6 pg (26-34); Mean Corpuscular Volume 90.1 fl (80-100); Nucleated Red Blood Cells Absolute Auto 0.000 K/mm3 (0.0-0.012); Nucleated Red Blood Cells Perc 0.0 % (0.0-0.2); Platelet Count Result 261 k/mm3 (150-375); Red Blood Count 4.23 M/mm3 (4.2-5.4); White Blood Count 4.5 K/mm3 (4.5-10.0)
[2025-01-06 12:36] LABS: Alanine Aminotransferase 16 U/L (6-35); Albumin Level 3.8 g/dL (3.5-5.1); Alkaline Phosphatase 89 U/L (38-126); Anion Gap 8 mmol/L (4-12); Aspartate Amino Transferase 25 U/L (14-36); Bilirubin,Total 0.2 mg/dL (0.2-1.3); Blood Urea Nitrogen 14 mg/dL (7-17); Calcium 9.1 mg/dL (8.4-10.2); Carbon Dioxide 27 mmol/L (22-30); Chloride 106 mmol/L (98-107); Estimated CRCL calculation 49 ml/min; Estimated Glomerular Filt Rate 56; Glucose 222 mg/dL (65-110); Lipase 138 U/L (23-300); Potassium 3.9 mmol/L (3.4-5.0); Sodium 141 mmol/L (137-145); Total Protein 7.1 g/dL (6.3-8.2)
[2025-01-06 12:38] LABS: INR 1.1; Partial Thromboplastin Time 27.6 Seconds (22.3-36.8); Prothrombin Time 14.0 Seconds (11.1-14.7)
[2025-01-06 12:47] LABS: Troponin I < 0.012 ng/mL (0.000-0.034)
[2025-01-06] MEDS: KETOROLAC 15 MG/ML VIAL (*BKC) IV PUSH (12:48)
[2025-01-06] MEDS: IPRATROPIUM BR 0.02% INH SOLN 0.5 MG/2.5 ML VIAL 1 MG INHALATION (12:59)
[2025-01-06] MEDS: ALBUTEROL SULFATE NEB 2.5 MG/3 ML INH 10 MG INHALATION (12:59)
--- OUTSIDE RECORDS SUMMARY | 2025-01-06 14:04 | XMS_ITS | Clinical Summary ---
Author Organization [facility] Address [address] [place] [address] Care Team Providers Care Thread Clipper Name Role Phone Karan Ngo MD Unavailable Abdulkadir Craft MD Unavailable Carole Neal MD Unavailable [phone] Rohith Sen MD Primary Care Provider [phone] Allergies Active Allergy Reactions Criticality Noted Date [...] Scan (General) 2021 COVID-19 Vaccine (3 - 2024-2 6 season) 2024 07/31/2020, 07/10/2020 RSV Immunization or 60+ Years [...] patient's age to complete this topic Insurance [facility] Care Teams Thread Clipper Relationship Specialty Start Date End Date Rohith Sen MD [address] [place] [address] PCP - General FAMILY PRACTICE 02/03/23 Karan Ngo MD [address] [facility] [address] [place] [address] CARDIOVASCULAR DISEASE 01/29/21 [place] [address] [place] [address] Referring Physician RHEUMATOLOGY 01/29/21 Carole Neal MD [address] [place] [address] PULMONARY DISEASE 01/29/21
--- OUTSIDE RECORDS SUMMARY | 2025-01-06 14:04 | XMS_ITS | Encounter Summary ---
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 03/05/2021 06/08/2021 07/03/2021 3:[address] COVID: Suspected 11/03/2024 11/03/2024 11/03/2024 12:41 PM CDT COVID: Suspected 11/05/2024 11/05/2024 11/05/2024 1:53 PM CDT documented as of this encounter Care Teams Resp Therapist Relationship Specialty Start Date End Date Gin Wilson MD [address] [place] [address] [place] [address] [place] [address] PCP - General Family Practice 06/19/19 01/31/21 Gin Wilson MD [address] [place] [address] [place] [address] [place] [address] PCP - General Family Practice 02/01/21 12/04/23 Rohith Sen MD [address] [place] [address] [place] [address] [place] [address] PCP - General Family Practice 12/05/23 10/01/24 Beatriz Cuevas NP [address] [place] [address] PCP - General Nurse Practitioner 10/02/24 Karan Ngo MD [address] [place] [address], [place] [address] [place], [place] [address] Consulting Physician Cardiology 11/02/18 documented as of this encounter
--- OUTSIDE RECORDS SUMMARY | 2025-01-06 14:04 | XMS_ITS | Encounter Summary ---
Author Organization [facility] Address [address] [place] [address] Care Team Providers Care Balance Bridge Assembler Name Role Phone aKran Ngo MD Unavailable Abdulkadir Craft MD Unavailable Carole Neal MD Unavailable [phone] Rohith Sen MD Primary Care Provider [phone] Encounter Details Date Type Department Care Team (Late st Contact Info) Description 11/17/2015 Abstract [facility] CONVERSION [address] [place], [place] [id number] , Olinda Polo MD Social History Tobacco [...] on filedocumented in this encounter Care Teams Balance Bridge Assembler Relationship Specialty Start Date End Date Rohith Sen MD [address] [place] [address] PCP - General FAMILY PRACTICE 02/03/23 Karan Ngo MD [address] [address] CARDIOVASCULAR DISEASE 01/29/21 [place] [address] [place] [address] Referring Physician RHEUMATOLOGY 01/29/21 Carole Neal MD [address] [place] [address] PULMONARY DISEASE 01/29/21 documented as of this encounter
--- OUTSIDE RECORDS SUMMARY | 2025-01-06 14:04 | XMS_ITS | Encounter Summary ---
Author Organization 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
--- OUTSIDE RECORDS SUMMARY | 2025-01-06 14:04 | XMS_ITS | Encounter Summary ---
Author Organization [facility] Address [address] [place] [address] Care Team Providers Care Coat Hanger Shaper Machine Operator Name Role Phone Karan Ngo MD Unavailable Abdulkadir Craft MD Unavailable Carole Neal MD Unavailable [phone] Rohith Sen MD Primary Care Provider [phone] Encounter Details Date Type Department Care Team (Late st Contact Info) Description 01/30/[address] [facility] [phone] Maximo Jones MD [address] [facility] [place], [place] [id number] Social History Tobacco Use Types Packs/Day Years [...] Arthritis RA, osteoarthritis, psoriatric arthritis ??? Cancer ([facility]) leukemia as a child ??? Colitis ??? COPD (chronic obstructive pulmonary disease) ([facility]) ??? Coronary artery disease ??? 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 Diabetes mellitus ([facility]) ??? Diverticulitis ??? Emphysema lung ([facility]) ??? MVP (mitral valve prolapse) ??? Neuropathy feet ??? On supplemental oxygen by nasal cannula 4L O2 PRN ??? Seizure ([facility]) patient unsure about this ??? Stroke ([facility]) possible TIA? Allergies: Allergies Allergen [...] on filedocumented in this encounter Care Teams Coat Hanger Shaper Machine Operator Relationship Specialty Start Date End Date Rohith Sen MD [address] [place] [id number] PCP - General FAMILY PRACTICE 02/03/23 Karan Ngo MD [address] [facility] [address] [place] [address] CARDIOVASCULAR DISEASE 01/29/21 [place] [address] [place] [address] Referring Physician RHEUMATOLOGY 01/29/21 Carole Neal MD [address] [place] [address] PULMONARY DISEASE 01/29/21 documented as of this encounter
--- OUTSIDE RECORDS SUMMARY | 2025-01-06 14:04 | XMS_ITS | Clinical Summary ---
Author Organization [facility] [address] [facility] [address] [place] [address] Care Team Providers Care Information Assurance Engineer Name Role Phone Karan Ngo MD Unavailable Beatriz Cuevas NP Primary Care Provider [phone] Allergies Active Allergy Reactions Criticality Noted Date [...] 24 hr tabletIndications :Coronary artery disease of [place] artery of [place] heart with stable angina pectoris TAKE 1 [...] day 53 tablet 11/08/19 25 025 Active Active Problems Problem Noted Date Diagnosed Date COPD exacerbation (CMS/HCC) 10/10/2020 Acute on chronic respiratory failure with hypoxe brian 10/10/2020 Pancreatic cyst 03/23/2020 Type 2 diabetes mellitus wit h hyperglycemia, with long-term current use of insulin 03/16/2020 Assessment & Plan (03/16/2020 2:22 PM ROTOPRINTER): Diagnosed in 2013- Had recurrent pancreatitis. Started [...] 03/16/2020 Assessment & Plan (03/16/2020 2:23 PM ROTOPRINTER): Complicated with CAD Controlled with medication - [...] (11/02/2018): Added automatically from request for surgery [id number] Assessment & Plan (12/11/2018 5:10 PM CDT): [...] - 11/07/2024 11:10 AM CDT Hospital Encounter [facility] Acute Medicine 1 [place] [address] Ruba Pratt MD COPD exacerbation (HCC) (Primary Dx) Discharge Disposition: Discharge to home or self care 11/03/2024 11:39 AM CDT - 11/03/2024 1:05 PM CDT Emergency [facility] Emergency Department 1 [place] [address] Imer Chang MD COPD exacerbation (HCC) (Primary Dx) Discharge Disposition: Discharge to home or self care from Last 3 Months Surgical History Surgery [...] 2017 COPD (chronic obstructive pu lmonary disease) MCMAHON [...] drink = 0.6 oz pur e alcohol) [facility] Utilities Answer Date Recorded In the past 12 months has [employer], gas, oil, or water [employer] threatened to shut off services in your [...] often do you attend chur ch or christian services? More than 4 times per year 11/06/2024 Do you belong to any clubs o r organizations such as congregation groups, unions, fraternal or athletic groups, or [...] any time in the past 12 m [facility], were you homeless or living in a chcf (including now)? No 11/06/2024 Personal Safety Answer Date Recorded Have you ever been in or are you currently in a harmful physical or emotional relationship or is someone making you feel afraid or unsafe? Denies 11/05/2024 Comments No Sex and Gender Information Value Date Recorded Sex Assigned at Not on file Legal Sex Female 1:49 PM ROTOPRINTER Gender Identity Not on file Sexual Orientation [...] Exam 02/07/2020 02/06/2019 Hemoglobin A1C 09/13/2020 03/16/2020, 0512/2019, 04/26/2019, Additional history exists Foot Exam 09/19/2020 09/20/2019, 07/10/2018 Well Visit 65+ 2021 Influenza Vaccine (#1) 2024 Lipid Panel 10/02/2025 10/02/2024, 11/22, 12/16/2021, Additional history exists eGFR 11/05/2025 11/05/2024, 10/22, 11/03/2024, Additional history exists Fall Risk Assessment 11/07/2025 11/07/2024, 06/28/19 19 Medical Devices Implanted Type Area Edge Grinder Machine Device Identifier Shelf Expiration Date Model / Serial / Lot System Coronary Stent Synergy Pebax Everolimus Eluting Sierraville Chromium Plga L12 Mm L144 Cm Od2.25 Mm Radiopaque 1 Access Port Inflation Lumen Accepts .014 In Guidewire - [id number] Implanted:Qty: 1 on 04/06/2017 by Karan Ngo MD at [facility] [employer] 12/19/2017 [id number] / / [id number] Procedures Procedure Name Priority Date/Time Associated Diagnosis [...] 4:52 PM CDT CBC WITHOUT DIFFERENTIAL Routine 11/05/2024 4:52 PM CDT COMPREHENSIVE METABOLIC PANEL Routine [...] AUTO DIFFERENTIAL STAT 11/03/2024 11:45 AM CDT POCT LIPID PANEL Routine 10/02/2024 10:5 9 AM CDT Lipid screening POCT HEMOGLOBIN A1C Routine 03/16/2020 2 :10 PM ROTOPRINTER Type 2 diabetes mellitus with hyperglycemia, with [...] - DEVICE Final Result Performing Organization Address City/[facility]/ZIP Co de Phone Number AUSTIN CUELLAR (STELLA) [address] [facility] [place] [address] * (ABNORMAL) POCT glucose (11/07/2024 1:57 AM CDT) Glucose, POC 201(H) 70 - 199 mg/dL Blood 11/07/2024 1:57 AM CDT 11/07/2024 1:57 AM CDT us Ruba Pratt MD LAB POCT ORDERABLES - DEVICE Final Result Performing Organization Address City/[facility] Co de Phone Number AUSTIN CUELLAR (STELLA) [address] [facility] [place] [address] * (ABNORMAL) POCT glucose (11/06/2024 7:34 PM CDT) Glucose, POC 282(H) 70 - 199 mg/dL Blood 11/06/2024 7:34 PM CDT 11/06/2024 7:34 PM CDT us Ruba Pratt MD LAB POCT ORDERABLES - DEVICE Final Result Performing Organization Address City/[facility]/ZIP Co de Phone Number AUSTIN CUELLAR (STELLA) [address] [facility] [place] [address] * (ABNORMAL) POCT glucose (11/06/2024 4:31 PM CDT) Glucose, POC 253(H) 70 - 199 mg/dL Blood 11/06/2024 4:31 PM CDT 11/06/2024 4:31 PM CDT us Ruba Pratt MD LAB POCT ORDERABLES - DEVICE Final Result Performing Organization Address [facility] Co de Phone Number AUSTIN CUELLAR (STELLA) [address] [facility] [place] [address] * (ABNORMAL) POCT glucose (11/06/2024 11:12 AM CDT) Glucose, POC 214(H) 70 - 199 mg/dL Blood 11/06/2024 11:1 2 AM CDT 11/06/2024 11:12 AM CDT us Ruba Pratt MD LAB POCT ORDERABLES - DEVICE Final Result Performing Organization Address [facility] de Phone Number AUSTIN CUELLAR (STELLA) [address] [facility] [place] [address] * (ABNORMAL) POCT glucose (11/06/2024 7:36 AM CDT) Glucose, POC 229(H) 70 - 199 mg/dL Blood 11/06/2024 7:36 AM CDT 11/06/2024 7:36 AM CDT us Ruba Pratt MD LAB POCT ORDERABLES - DEVICE Final Result Performing Organization Address [facility] Co de Phone Number AUSTIN CUELLAR (STELLA) [address] [facility] [place] [address] * (ABNORMAL) POCT glucose (11/06/2024 2:13 AM CDT) Glucose, POC 317(H) 70 - 199 mg/dL Blood 11/06/2024 2:13 AM CDT 11/06/2024 2:13 AM CDT Ruba Pratt MD LAB POCT ORDERABLES - DEVICE Final Result Performing Organization Address [facility] Co de Phone Number AUTSIN CUELLAR (ANISH) [address] [facility] [place] [address] * (ABNORMAL) POCT glucose (11/05/2024 11:17 PM CDT) Glucose, POC 362(H) 70 - 199 mg/dL Blood 11/05/2024 11:1 7 PM CDT 11/05/2024 11:17 PM CDT us Ruba Pratt MD LAB POCT ORDERABLES - DEVICE Final Result AUSTIN CUELLAR ([place]) [address] [facility] [place] [address] * (ABNORMAL) POCT glucose (11/05/2024 8:08 PM CDT) Glucose, POC 338(H) 70 - 199 mg/dL Blood 11/05/2024 8:08 PM CDT 11/05/2024 8:08 PM CDT us Ruba Pratt MD LAB POCT ORDERABLES - DEVICE Final Result Performing Organization Address City/[facility]/ZIP Co de Phone Number AUSTIN CUELLAR ([place]) [address] [facility] [place] [address] * (ABNORMAL) POCT glucose (11/05/2024 7:25 PM CDT) Glucose, POC 389(H) 70 - 199 mg/dL Blood 11/05/2024 7:25 PM CDT 11/05/2024 7:25 PM CDT us Ruba Pratt MD LAB POCT ORDERABLES - DEVICE Final Result AUSTIN CUELLAR ([place]LLA) [address] [facility] [place] [address] * Troponin T high-sensitivity 6-hour (11/05/2024 6:25 PM CDT) Trop T hs 8 <=14 ng/L [facility] (ANISH) Comment: Interpretive Data For further hscTnT resources including the diagnostic algorithm and an aid in interpretation, copy and paste this link: https://nrl.[employer].org/show/hsTrop Current Interpretive Data last revised 2020. Trop T hs delta -2 ng/L [facility] (ANISH) Trop T hs interp Insignificant [facility] (ANISH) Blood 11/05/2024 6:25 PM CDT 11/05/2024 6:30 PM CDT Kaley ARIZMENDI LAB BLOOD ORDERABLES Tanika l Result [facility] (ANISH) [address] [facility] [employer] [place] [address] * (ABNORMAL) POCT glucose (11/05/2024 5:22 PM CDT) Pathologist [facility] Glucose, POC 247(H) 70 - 199 mg/dL Blood 11/05/2024 5:22 PM CDT 11/05/2024 5:22 PM CDT Ruba Pratt MD LAB POCT ORDERABLES - DEVICE Final Result [facility] ([place]) [address] [facility] [employer] [place] [address] * Troponin T high-sensitivity 4-hour (11/05/2024 4:52 PM CDT) Trop T hs 7 <=14 ng/L [facility] (ANISH) Comment: Interpretive Data For further hscTnT resources including the diagnostic algorithm and an aid in interpretation, copy and paste this link: https://nrl.[employer].org/show/hsTrop Current Interpretive Data last revised 2020. Trop T hs delta -3 ng/L [facility] (ANISH) Trop T hs interp Insignificant AUSTIN CUELLAR ([place]) Blood 11/05/2024 4:52 PM CDT 11/05/2024 5:09 PM CDT Kaley ARIZMENDI LAB BLOOD ORDERABLES Tanika l Result Performing Organization Address City/[facility]/ZIP Co de Phone Number AUSTIN CUELLAR ([place]LL[place]) [address] [facility] [place] [address] * eGFR (11/05/2024 4:52 PM CDT) eGFR [...] ORDERABLES Tanika l Result Performing Organization Address City/[facility]/ZIP Co de Phone Number AUSTIN CUELLAR (STELLA) [address] [facility] [place] [address] * (ABNORMAL) CBC without differential (11/05/2024 4:52 [...] Tanika ewing Result [facility] (ANISH) [address] [facility] [place] [address] * (ABNORMAL) Comprehensive metabolic panel (11/05/2024 4:52 [...] Bilirubin, total 0.3 0.1 - 1.2 mg/dL [facility] Protein, pl 7.6 6.5 - [...] ARIZMENDI LAB BLOOD ORDERABLES Tanika l Result [facility] (ANISH) [address] [facility] [place] [address] * Troponin T high-sensitivity 2-hour (11/05/2024 3:08 PM CDT) Trop T hs 9 <=14 ng/L [facility] (ANISH) Comment: Interpretive Data For further hscTnT resources including the diagnostic algorithm and an aid in interpretation, copy and paste this link: https://nrl.[employer].org/show/hsTrop Current Interpretive Data last revised 2020. Trop T hs delta -1 ng/L [facility] ([place]) Trop T hs interp Insignificant [facility] (STE[place]) Blood 11/05/2024 3:08 PM CDT 11/05/2024 3:12 PM CDT Kaley ARIZMENDI LAB BLOOD ORDERABLES Tanika l Result Performing Organization Address [facility] Co de Phone Number [facility] (STELLA) 1 [place] [address] * Blood gas, venous (11/05/2024 2:24 PM CDT) pH, Venous 7.32 7.32 - 7.43 PCO2, Venous 49 40 - 50 mmHg [facility] ([place] PO2, Venous 86 mmHg [facility] ([place]) HCO3 Venous, Calculated 25 20 - 30 mmol/L [facility] ([place] BE, venous -1 mmol/L [facility] ([place]) Comment: Interpretive Data No Reference Range Established Current Interpretive Data was last revised on 2017. Blood 11/05/2024 2:24 PM CDT 11/05/2024 2:30 PM CDT Kaley ARIZMENDI LAB BLOOD ORDERABLES Tanika l Result Performing Organization Address [facility] Co de Phone Number [facility] (STELLA) [address] [place] [address] * Influenza A/B, RSV, and COVID-19 PCR Nasopharyngeal (11/05/2024 1:12 PM CDT) COVID-19 RNA Negative Negative Influenza A RNA Negative Negative [facility] (STE[place]A) Influenza B RNA Negative Negative [facility] ([place]) RSV RNA Negative Negative [facility] ([place]) Comment: Interpretive data: Testing performed by [facility]. This test is performed using the [employer] Xpert Xpress CoV-2/Flu/RSV plus assay. This is a multiplex, real- time reverse transcriptase PCR assay intended for the qualitative detection of nucleic acid from SARS-CoV-2, influenza A, influenza B, and respiratory syncytial virus. This assay has been cleared by the [place] Food and Drug administration. The performance characteristics have been verified by the [facility]. Results must be considered in the clinical context, and a negative result does not rule out infection. Interpretive Data last revised 2023 Nasopharyngeal 11/05/2024 1: 12 PM CDT 11/05/2024 1:14 PM CDT Narrative AUSTIN CUELLAR (STE[place]) - 11/05/2024 1:52 PM CDT Is the Patient experiencing symptoms consistent with COVID?->Yes us Kaley ARIZMENDI LAB MICROBIOLOGY - GENERA L ORDERABLES Final Result AUSTIN CUELLAR ([place]LL[place]) [address] [facility] [place] [address] * XR Chest 1 Vw Portable (11/05/2024 [...] Carlos Grossman D.O. PS: PS Report ID: [id number] Reading Location: [id number] Procedure Note Chauncey Carlos Cardenas, DO - 11/05/2024 EXAM DESCRIPTION: XR CHEST [...] Carlos Grossman D.O. PS: PS Report ID: [id number] Reading Location: [id number] Kaley ARIZMENDI IMG XR PROCEDURES Final R esult * Troponin T high-sensitivity series (baseline, 2hr, 4hr, 6hr) (11/05/2024 12:59 PM CDT) Trop T hs 10 <=14 ng/L AUSTIN CUELLAR ([place]) Comment: Interpretive Data For further hscTnT resources including the diagnostic algorithm and an aid in interpretation, copy and paste this link: https://nrl.testcatalog.org/show/hsTrop Current Interpretive Data last revised 2020. Blood 11/05/2024 12:5 9 PM CDT 11/05/2024 1:09 PM CDT Kaley ARIZMENDI LAB BLOOD ORDERABLES Tanika gildardo Result AUSTIN CUELLAR ([place]) 1 [facility] [place] [address] * eGFR (11/05/2024 12:59 PM CDT) eGFR [...] ARIZMENDI LAB BLOOD ORDERABLES Tanika ewing Result [facility] ([place]) [address] [facility] [place] [address] * (ABNORMAL) Differential, auto (11/05/2024 12:59 PM CDT) Neutrophil abs 7.70(H) 1.50 - 6.50 K/cumm Imm gran abs 0.04 0.00 - 0.10 K/cumm [facility] ([place]) Lymphocyte abs 1.80 0.80 - 3.30 K/cumm [...] BLOOD ORDERABLES Tanika ewing Result AUSTIN CUELLAR (ANISH) 1 [facility] [place] [address] * (ABNORMAL) Pro B-type natriuretic peptide (11/05/2024 12:59 PM CDT) NT-proBNP 308(H) <=300 pg/mL AUSTIN ALISA (STE[place]) Comment: Interpretive Comments: A. Dyspnea in Acute [...] as advanced age. - References: 1. Patel JL et.al. Eur Heart J. 2006:27:330-337. 2. David RW, Gabriella LOPEZ. J. AM Gianna Cardiol: Cardiovasc Imag. 2009;2: 216- 225. Interpretive Data Last Revised Date: 2017. Blood 11/05/2024 12:5 9 PM CDT 11/05/2024 1:09 PM CDT us Kaley ARIZMENDI LAB BLOOD ORDERABLES Tanika l Result AUSTIN CUELLAR ([place]) 1 [facility] [place], [place] [address] * (ABNORMAL) CBC with auto differential (11/05/2024 12:59 PM CDT) Pathologist [facility] WBC 9.83 3.80 - 9.90 K/cumm Hgb [...] Tanika ewing Result [facility] (ANISH) [address] [facility] [place] [address] * Comprehensive metabolic panel (11/05/2024 12:59 PM [...] LAB BLOOD ORDERABLES Tanika l Result [facility] (ANISH) [address] [facility] [place] [address] * ECG 12 lead (11/05/2024 12:54 PM CDT) 11/05/2024 12:5 4 PM CDT Narrative [facility] - 11/05/2024 1:57 PM CDT Vent Rate: 65 bpm RR Interval: 921 msec CO Interval: 152 msec QRS Duration: 93 msec QT Interval: 394 msec QTC Interval: 405 msec P-R-T [place]: 60 - 50 - 52 degrees IMPRESSION: SINUS RHYTHM NORMAL ECG NO CHANGE FROM PREVIOUS TRACING NOTED Electronically Signed By: Mainor Lopez MD us Brenda Mast MD ECG ORDERABLES Final Res ult Performing Organization Address [facility] de Phone Number [facility] [employer] [facility] * ECG 12 lead (11/03/2024 11:55 AM CDT) 11/03/2024 11:5 5 AM CDT Narrative [facility] - 11/04/2024 6:49 AM CDT Vent Rate: 75 bpm RR Interval: 796 msec CO Interval: 161 msec QRS Duration: 84 msec QT Interval: 380 msec QTC Interval: 409 msec P-R-T [place]: 56 - 53 - 55 degrees IMPRESSION: SINUS RHYTHM LOW QRS VOLTAGE IN PRECORDIAL LEADS [QRS DEFLECTION < 1.0 mV IN CHEST LEADS] BORDERLINE ECG NO CHANGE FROM PREVIOUS TRACING NOTED Electronically Signed By: Mainor Lopez MD Imer Chang MD ECG ORDERABLES Final Result Performing Organization Address [facility] de Phone Number [facility] [employer] [facility] * XR CHEST 1 VIEW PORTABLE [...] by Rubio Gallego M.D. CH: Report ID: [id number] Reading Location: [id number] Procedure Note Rubio Gallego Jr., MD - [...] by Rubio Gallego M.D. CH: Report ID: [id number] Reading Location: [id number] Imer Chang MD IMG XR PROCEDURES Final Resu lt * Influenza A/B, RSV, and COVID-19 PCR Nasopharyngeal (11/03/2024 11:47 AM CDT) COVID-19 RNA Negative Negative Influenza A RNA Negative Negative [facility] ([place]ISH) Influenza B RNA Negative Negative [facility] ([place]ISH) RSV RNA Negative Negative [facility] (ANISH) Comment: Interpretive data: Testing performed by [facility]. This test is performed using the [employer] Xpert Xpress CoV-2/Flu/RSV plus assay. This is a multiplex, real- time reverse transcriptase PCR assay intended for the qualitative detection of nucleic acid from SARS-CoV-2, influenza A, influenza B, and respiratory syncytial virus. This assay has been cleared by the [place] Food and Drug administration. The performance characteristics have been verified by the [facility]. Results must be considered in the clinical context, and a negative result does not rule out infection. Interpretive Data last revised 2023 Nasopharyngeal 11/03/2024 11 :47 AM CDT 11/03/2024 11:52 AM CDT Narrative ASUTIN CUELLAR (STELLA) - 11/03/2024 12:40 PM CDT Is the Patient experiencing symptoms consistent with COVID?->Yes Imer Chang MD LAB MICROBIOLOGY - GENERAL O RDERABLES Final Result Performing Organization Address [facility] Co de Phone Number AUSTIN CUELLAR (STELLA) [address] [facility] [place] [address] * Troponin T high-sensitivity series (baseline, 2hr, [...] ORDERABLES Final R esult Performing Organization Address [facility] Co de Phone Number AUSTIN CUELLAR (STELLA) [address] [facility] [place] [address] * Sepsis Lactate w/ Reflex (11/03/2024 11:45 AM CDT) Sepsis Lactate 1.7 0.7 - 2.0 mmol/L Blood 11/03/2024 11:4 5 AM CDT 11/03/2024 11:48 AM CDT Imer Chang MD LAB BLOOD ORDERABLES Final R esult Performing Organization Address [facility] Co de Phone Number AUSTIN CUELLAR (STELLA) [address] [facility] [place] [address] * eGFR (11/03/2024 11:45 AM CDT) eGFR [...] LAB BLOOD ORDERABLES Final R esult [facility] ([place]) [address] [facility] [place] [address] * Differential, auto (11/03/2024 11:45 AM CDT) Neutrophil abs 3.34 1.50 - 6.50 K/cumm Imm gran abs 0.01 0.00 - 0.10 K/cumm [facility] ([place]) Lymphocyte abs 1.36 0.80 - 3.30 K/cumm [facility] ([place]) Monocyte abs 0.60 0.20 - 0.80 K/cumm [...] BLOOD ORDERABLES Final R esult AUSTIN CUELLAR (ANISH) 1 [facility] [place] [address] * Pro B-type natriuretic peptide (11/03/2024 11:45 [...] BLOOD ORDERABLES Final R esult AUSTIN CUELLAR ([place]) 1 [facility] [place] [address] * (ABNORMAL) CBC with auto differential (11/03/2024 11:45 AM CDT) WBC 5.38 3.80 - 9.90 K/cumm Hgb 13.6 11.9 - 15.5 g/dL AUSTIN CUELLAR (ANISH) Hct 41.9 35.6 - 45.5 % AUSTIN CUELLAR (ANISH) Plt 158 150 - 400 K/cumm [facility] (ANISH) MPV 10.3 9.1 - 12.3 fL [facility] RBC 4.59 3.90 - 5.20 M/cumm [facility] (ANISH) MCV 91.3 81.3 - 96.4 fL [facility] (ANISH) MCH 29.6 27.1 - 33.3 pg [facility] (ANISH) MCHC 32.5 32.3 - 35.7 g/dL [facility] RDW CV 15.0(H) 11.1 - 14.9 % [facility] RDW SD 50.4(H) 35.7 - 48.1 fL [facility] (ANISH) NRBC abs 0.00 0.00 - 0.01 K/cumm [facility] (ANISH) Blood 11/03/2024 11:4 5 AM CDT 11/03/2024 11:48 AM CDT Imer Chang MD LAB BLOOD ORDERABLES Final R esult Performing Organization Address [facility] Co de Phone Number AUSTIN CUELLAR ([place]LLA) 1 [facility] [place] [address] * (ABNORMAL) Blood gas, venous (11/03/2024 11:45 AM CDT) pH, Venous 7.34 7.32 - 7.43 PCO2, Venous 53(H) 40 - 50 mmHg [facility] (ANISH) PO2, Venous 24 mmHg [facility] (ANISH) HCO3 Venous, Calculated 28 20 - 30 mmol/L [facility] ([facility] BE, venous 1 mmol/L [facility] (ANISH) Comment: Interpretive Data No Reference Range Established Current Interpretive Data was last revised on 2017. Blood 11/03/2024 11:4 5 AM CDT 11/03/2024 11:50 AM CDT Imer Chang MD LAB BLOOD ORDERABLES Final R esult Performing Organization Address [facility] Co de Phone Number [facility] (ANISH) [facility] [place] [address] * Comprehensive metabolic panel (11/03/2024 11:45 AM [...] BLOOD ORDERABLES Final R esult [facility] ([place]) 1 [facility] [place] [address] * (ABNORMAL) POCT lipid panel (10/02/2024 10:59 [...] CARE TEST ORDERABLES Fi nal Result * POCT hemoglobin A1c (03/16/2020 2:10 PM ROTOPRINTER) Hemoglobin A1C, POC 7.1 Blood specimen (specimen) 03/16/2020 2:10 PM ROTOPRINTER Result [facility] Abena Ronquillo MD POINT OF CARE TEST ORDERABLES Final Result * DIABETES EYE EXAM (02/06/2019) Pathologist [facility] Diabetic Eye Exam Unknown Wendy Wolff MD HEALTH MAINTENANCE Final Result from Last 3 Months or Most Recently Relevant to Health Maintenance Insurance [facility] MEDICARE ADVANTAGE Advance Directives For more information, please contact: [phone] * Full Code (Latest Code Status on File) Date Activated Date Inactivated Comments 11/05/2024 4:12 PM 11/07/2024 3:15 PM * Full Code Date Activated Date Inactivated Comments 10/10/2020 6:56 PM 10/12/2020 5:57 PM * Full Code Date Activated Date Inactivated Comments 11/30/2018 7:41 AM 11/30/2018 1:32 PM * Full Code Date Activated Date Inactivated Comments 04/06/2017 3:48 PM 04/07/2017 2:06 PM Care Teams Information Assurance Engineer Relationship Specialty Start Date End Date Beatriz Cuevas NP [address] [place] [address] PCP - General Nurse Practitioner 10/02/24 Karan Ngo MD [address] [place] [address] [facility] [place] [place] [address] Consulting Physician Cardiology 11/02/18
--- OUTSIDE RECORDS SUMMARY | 2025-01-06 14:04 | XMS_ITS | Clinical Summary ---
Author Organization [facility] Address [address] [facility], [place] [address] Phone Care Team Providers Care Tailings Worker Name Role Phone Joseph Sweet MD Primary Care Provider [phone] Kenneth Ward DPM Unavailable [phone] Hermann Oilvia DO Unavailable [phone] Naida Odonnell MD Unavailable Allergies Active [...] patient's age to complete this topic Insurance [facility] MEDICARE Care Teams Tailings Worker Relationship Specialty Start Date End Date Joseph Sweet MD [address] [place] [address] PCP - General Family Medicine 06/12/15 Kenneth Ward DPM [address] [place] [address] Podiatry 06/12/15 Hermann Olivia [place] [place] [address] Gastroenterology 02/02/16 Naida Odonnell MD [address] [place] [address] Family Medicine 02/02/16
--- NOTE | 2025-01-06 14:56 | ECG_ITS ---
Test Date: 2025-01-06 15:03:11 Measurements Intervals [place] Rate: 66 P: 50 WY: 162 QRS: 44 QRSD: 84 T: 39 QT: 409 QTc: 431 Interpretive Statements SINUS RHYTHM LOW QRS VOLTAGE IN PRECORDIAL LEADS [QRS DEFLECTION < 1.0 mV IN CHEST LEADS] ABNORMAL ECG Compared to ECG 01/06/2025 12:11:17 No significant changes Electronically Signed On 01-07-2025 08:03:52 CDT by Salinas Murray M.D.
--- NOTE | 2025-01-06 15:04 | ED_ITS ---
HPI - General Adult General Chief complaint: Chest Pain Stated complaint: Chest Pain Time Seen by Provider: 01/06/25 12:36 History of Present Illness HPI narrative: Patient is a 61-year-old female with history of coronary disease who presents ER with right-sided chest pain. Lateral chest beneath the breast. Worse with direct pressure. Unable to describe any other aggravating factors. Began around 2:00 a.m.. Has had chronic cough related to her COPD and a possible recent pneumonia that she took antibiotics for. When she takes a deep breath she has prolonged persistent coughing. It is nonproductive. Denies fevers or chills or sweats. Related Data Home Medications ?Medication ?Instructions ?Recorded ?Confirmed ?Last Taken ?Type aspirin 81 mg tablet,delayed 81 mg PO DAILY 10/29/19 0 12/04/24 02/17/20 History release (Adult Low Dose Aspirin) acetaminophen 650 mg 650 mg PO Q12H 08/09/2311/22 Unknown History tablet,extended release isosorbide mononitrate 60 mg 60 mg PO DAILY 08/09/23 0 12/04/24 Unknown History tablet,extended release 24 hr lisinopril 5 mg tablet 5 mg PO DAILY 08/09/2312/04 Unknown History rosuvastatin 40 mg tablet 40 mg PO HS 08/09/23 5 Unknown History clopidogrel 75 mg tablet 75 mg PO DAILY 01/17/2411/22 Unknown History insulin glargine 100 unit/mL (3 40 unit subcut .COMPLE X 11/14/24 12/04/24 Unknown History mL) subcutaneous pen (Lantus Solostar U-100 Insulin) Allergies Allergy/AdvReac Type Severity Reaction Status Date / Time canagliflozin Allergy Severe PANCREATITI Verified 01/06/25 12:08 S meperidine Allergy Severe TONGUE Verified 01/06/25 12:08 SWELLING/HIVES methotrexate Allergy Severe PANCREATITI Verified 01/06/25 12:08 S metformin AdvReac Diarrhea Verified 01/06/25 12:08 Review of Systems 2 Review of Systems: All systems reviewed & are unremarkable except as noted in HPI and below Constitutional: Constitutional: Reports no additional constitutional complaints ENT: Reports system reviewed and no additional complaints, except as documented Cardiovascular: Cardiovascular: Reports no additional cardiovascular complaints Respiratory: Respiratory: Reports no additional respiratory complaints [facility] Past Medical History Medical History Choking due to food in larynx Oropharyngeal dysphagia Systemic lupus Skin cancer Angina at rest Abdominal aortic aneurysm (AAA) without rupture CAD in [place] artery Dyslipidemia Rheumatoid arthritis Obstructive sleep apnea Cholecystitis, acute Fatty liver disease, nonalcoholic History of chemotherapy Osteoporosis Arthritis Fibromyalgia Kidney stones GERD (gastroesophageal reflux disease) Hemorrhoids Irritable bowel syndrome Rectal polyp Pancreatitis Ulcer Diverticulitis Sleep apnea COPD (chronic obstructive pulmonary disease) Coronary artery disease Mitral valve prolapse Peripheral neuropathy Edmonds's palsy Surgical History Surgical History History of incisional hernia repair History of coronary artery stent placement 01/2018 and 04/2016 History of cholecystectomy H/O cardiac catheterization with 4 cardiac stents Cataracts, bilateral Family History Family History Father Family history of emphysema Other Cerebrovascular accident Diabetes mellitus Family history of cardiovascular disease Family history of coronary artery disease Family history of heart disease in male family member before age 55 Family history of lupus erythematosus Family history of osteoarthritis Family history of rheumatoid arthritis Family history of tuberculosis Hypertension Social History Social History Social History: started age 16, up at most 3 ppd; quit totally 2 years ago in Apr; restarted after of a niece and 2 brothers, now smokes less about half pack/day. Smoking packs per day: 1 Smoking cigarettes per day: 20.0 Years smoked: 51 Smoking pack-years: 51.00 Smoking status: Former smoker Tobacco type: cigarettes Second hand tobacco smoke exposure: No Smoking end date: 12/13/23 Additional smoking assessment comments: started age 16, Alcohol intake: never Substance use: never Substance use type: marijuana Lack of Transportation: No Lack of Food: Sometimes True Current Housing: I Do Not Have Housing Concerned About Future Housing: No Difficulty Paying Gas/Electric Bills: No Difficulty Paying for Meds: No Currently Unemployed: No Education: High School Diploma/GED Difficulty w/ Childcare or Family Care: No Living arrangements: with family Additional living arrangements comments: with , cat Elisa and a dog; cat plays hard, scratches Occupation/Education: retired Additional occupation/education comments: 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 HEAD: Normocephalic, atraumatic. ENT: Mucous membranes moist. NECK: Supple. CHEST: Expiratory wheezing with frequent coughing. No respiratory distress. Right chest wall tender palpation reproducing patient's discomfort near the lateral mid right breast. HEART: Regular rate and rhythm. Normal peripheral pulses. ABDOMEN: Soft, nontender, nondistended. EXTREMITIES: Normal range of motion. No edema. SKIN: Warm, dry, no rash. NEURO: Alert and oriented x3. PSYCH: Normal mood and affect. Course Course Emergency Course: Patient resting comfortably. Informed of results. No longer wheezing after nebulizer treatment. Discharge home with supportive care. Troponin negative x2. Vital Signs Vital signs: Vital Signs Pulse Rate 98 01/06/25 12:03 Respiratory Rate 12 01/06/25 12:03 Pulse Oximetry 97 01/06/25 12:03 Temperature 97.8 F 01/06/25 12:05 Pulse Rate 77 01/06/25 16:30 Respiratory Rate 14 01/06/25 16:30 Blood Pressure 130/74 01/06/25 16:30 Pulse Oximetry 98 01/06/25 16:15 Oxygen Delivery Room Air 01/06/25 14:05 Medical Decision Making Vital Signs Vital Signs: Vital Signs Pulse Rate 98 01/06/25 12:03 Respiratory Rate 12 01/06/25 12:03 Pulse Oximetry 97 01/06/25 12:03 Temperature 97.8 F 01/06/25 12:05 Pulse Rate 77 01/06/25 16:30 Respiratory Rate 14 01/06/25 16:30 Blood Pressure 130/74 01/06/25 16:30 Pulse Oximetry 98 01/06/25 16:15 Oxygen Delivery Room Air 01/06/25 14:05 Lab Data 01/06/25 12:17 01/06/25 12:17 Labs: Lab Results 01/06/25 01/06/25 Range/Units 12:17 15:13 WBC 4.5 (4.5-10.0) K/mm3 RBC 4.23 (4.2-5.4) M/mm3 Hgb 12.5 (12.0-15.0) g/dL Hct 38.1 (37.0-47.0) % MCV 90.1 (80-100) fl MCH 29.6 (26-34) pg MCHC 32.8 (32-36) g/dl RDW 13.9 (11.5-14.5) % Plt Count 261 (150-375) k/mm3 MPV 9.5 (7.4-10.4) fl Immature Gran % (Auto) 0.4 (0-0.5) % Neut % (Auto) 62.0 (45.5-73.1) % Lymph % (Auto) 29.8 (18.3-44.2) % [place] % (Auto) 5.2 (2.6-8.5) % Eos % (Auto) 2.2 (0-4.4) % Baso % (Auto) 0.4 (0.2-1.2) % Lymph # (Auto) 1.33 (0.9-3.2) K/mm3 [place] # (Auto) 0.2 (0.1-0.6) K/mm3 Eos # (Auto) 0.1 (0-0.3) K/mm3 Baso # (Auto) 0.0 (0.0-0.1) K/mm3 Abs Immat Gran (auto) 0.02 (0.00-0.031) K/mm3 Absolute Neuts (auto) 2.8 (1.3-6.7) K/mm3 Absolute Nucleated RBC 0.000 (0.0-0.012) K/mm3 Nucleated RBC % 0.0 (0.0-0.2) % PT 14.0 (11.1-14.7) Seconds INR 1.1 APTT 27.6 (22.3-36.8) Seconds Sodium 141 (137-145) mmol/L Potassium 3.9 (3.4-5.0) mmol/L Chloride 106 (98-107) mmol/L Carbon Dioxide 27 (22-30) mmol/L Anion Gap 8 (4-12) mmol/L BUN 14 D (7-17) mg/dL Creatinine 0.99 (0.7-1.0) mg/dL Estim Creat Clear Calc 49 ml/min Estimated GFR 56 L (59 - ) Glucose 222 H (65-110) mg/dL Calcium 9.1 (8.4-10.2) mg/dL Total Bilirubin 0.2 (0.2-1.3) mg/dL AST 25 (14-36) U/L ALT 16 (6-35) U/L Alkaline Phosphatase 89 (38-126) U/L Troponin I < 0.012 < 0.012 (0.000-0.034) ng/mL Total Protein 7.1 (6.3-8.2) g/dL Albumin 3.8 (3.5-5.1) g/dL Lipase 138 (23-300) U/L Imaging Data Radiologist's impression: ITS Impressions Chest X-Ray 01/06/25 14:53 IMPRESSION: 1. No acute cardiopulmonary findings. ECG Data EKG #1: ECG completion date: 01/06/25 ECG completion time: 12:11 EKG Interpretation: normal rate (73), sinus rhythm, no ST changes, normal QT and NL axis Discharge Plan Discharge Clinical Impression: Bronchitis Patient Disposition: Home Condition: Stable Instructions: Acute Bronchitis (ED) Additional Instructions: Please return to the emergency department if you develop severe and persistent chest pain, difficulty breathing, dizziness, leg swelling or if you are coughing up blood as these can be signs of a medical emergency. Please call your doctor for a follow up appointment to determine the need for further testing. Patient Language: Algerian Prescriptions: New prednisone 50 mg tablet 50 mg PO DAILY Qty: 7 0RF albuterol sulfate 90 mcg/actuation HFA aerosol inhaler 4 puff inhalation QID PRN (Reason: shortness of breath or wheezing) Qty: 8.5 0RF No Action (DME) FreeStyle Uday 2 [place] Misc See Rx Instructions .Route Qty: 1 0RF Rx Instructions: As directed carvedilol 3.125 mg tablet 3.125 mg PO BID Qty: 180 3RF clopidogrel 75 mg tablet 75 mg PO DAILY albuterol sulfate 90 mcg/actuation HFA aerosol inhaler 1 - 2 puff inhalation Q4-6H PRN (Reason: shortness of breath or wheezing) Qty: 8.5 2RF (DME) FreeStyle Uday 2 Sensor Kit See Rx Instructions .Route Qty: 6 5RF Rx Instructions: As directed insulin glargine [Lantus Solostar U-100 Insulin] 100 unit/mL (3 mL) insulin pen 40 unit subcut .COMPLEX Rx Instructions: 40 units subcutaneously in the morning and 40 units at night; nicotine 21 mg/24 hr patch 24 hour 1 patch transdermal DAILY Qty: 28 1RF aspirin [Adult Low Dose Aspirin] 81 mg tablet,delayed release (DR/EC) 81 mg PO DAILY (DME) blood-glucose meter [Eagle AlphaTouch Ultra2 Meter] Kit See Rx Instructions .Route Qty: 1 0RF Rx Instructions: use daily (DME) pen needle, diabetic [Comfort EZ Pen [place]] 32 gauge x 1/4 needle See Rx Instructions .Route Qty: 50 5RF Rx Instructions: use daily albuterol sulfate 2.5 mg /3 mL (0.083 %) solution for nebulization 2.5 mg inhalation Q4-6H PRN (Reason: shortness of breath or wheezing) Qty: 180 3RF nitroglycerin 0.4 mg tablet, sublingual 0.4 mg SUBLINGUAL Q5M PRN (Reason: Chest Pain) Qty: 30 1RF Rx Instructions: may repeat every 5 minutes up to 3 doses. acetaminophen [Tylenol Arthritis] 650 mg Tablet Extended Release 650 mg PO Q12H isosorbide mononitrate 60 mg tablet extended release 24 hr 60 mg PO DAILY lisinopril 5 mg Tablet 5 mg PO DAILY rosuvastatin 40 mg tablet 40 mg PO HS (DME) OneTouch Ultra Test Strip See Rx Instructions .Route Qty: 100 1RF Rx Instructions: Check blood sugar daily (DME) insulin syringe-needle U-100 [BD Insulin Syringe] 0.3 mL 29 gauge x 1/2 syringe See Rx Instructions .Route Qty: 10 1RF Rx Instructions: As directed with humalog insulin lispro [Humalog KwikPen Insulin] 100 unit/mL insulin pen See Rx Instructions subcut USEASDIRECTD Qty: 3 6RF Rx Instructions: Inject 5 units prior to meals if blood sugar > 150 subcutaneously use as directed; cholecalciferol (vitamin D3) 1,250 mcg (50,000 unit) capsule See Rx Instructions .ROUTE .COMPLEX Qty: 12 7RF Dose Instruction: TAKE 1 CAPSULE BY MOUTH ONCE WEEKLY Rx Instructions: TAKE 1 CAPSULE BY MOUTH ONCE WEEKLY budesonide 0.5 mg/2 mL suspension for nebulization 0.5 mg inhalation BID Qty: 120 5RF Rx Instructions: Inhale 2mL by nebulizer every 12 hours ipratropium bromide 0.02 % solution 2.5 ml inhalation QID PRN (Reason: shortness of breath or wheezing) Qty: 300 5RF Rx Instructions: Inhale 2.5 mL by nebulizer up to 4 times per day as needed for shortness of breath or wheezing azithromycin 250 mg tablet See Rx Instructions PO .COMPLEX Qty: 6 0RF Rx Instructions: For 250 mg dose pack: take 500 mg today (day 1), then 250 mg for 4 days (days 2-5) PO methylprednisolone [Medrol (Manuel)] 4 mg tablets,dose pack See Rx Instructions PO PER PKG DIR Qty: 21 0RF Rx Instructions: PO PER PKG DIR Jardiance 25 mg tablet 25 mg PO DAILY Qty: 30 3RF Follow-up/Referrals: Beatriz Cuevas APRN [Primary Care Provider, Family Practice] - 1 Week
--- OUTSIDE RECORDS SUMMARY | 2025-01-06 15:25 | XMS_ITS | Encounter Summary ---
Author Organization 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 03/05/2021 06/08/2021 07/03/2021 3:[address] COVID: Suspected 11/03/2024 11/03/2024 11/03/2024 12:41 PM CDT COVID: Suspected 11/05/2024 11/05/2024 11/05/2024 1:53 PM CDT documented as of this encounter Care Teams National Accounts Sales Relationship Specialty Start Date End Date Gin Wilson MD [address] [place] [address] PCP - General Family Practice 06/19/19 01/31/21 Gin Wilson MD [address] [place] [address] PCP - General Family Practice 02/01/21 12/04/23 Rohith Sen MD [address] [place] [address] PCP - General Family Practice 12/05/23 10/01/24 Beatriz Cuevas NP [address] [place] [id number] PCP - General Nurse Practitioner 10/02/24 Karan Ngo MD [address] [place], [place] [id number] Consulting Physician Cardiology 11/02/18 documented as of this encounter
--- OUTSIDE RECORDS SUMMARY | 2025-01-06 15:25 | XMS_ITS | Clinical Summary ---
Author Organization [facility] Address [address] [place] [address] Care Team Providers Care Superintendent Plant Name Role Phone Karan Ngo MD Unavailable Abdulkadir Craft MD Unavailable Carole Neal MD Unavailable [phone] Rohith Sen MD Primary Care Provider [phone] Allergies Active Allergy Reactions Criticality Noted Date [...] patient's age to complete this topic Insurance [facility] Care Teams Superintendent Plant Relationship Specialty Start Date End Date Rohith Sen MD [address] [place] [address] PCP - General FAMILY PRACTICE 02/03/23 Karan Ngo MD [address] [facility] [address] [place] [address] CARDIOVASCULAR DISEASE 01/29/21 [place] [address] [place] [address] Referring Physician RHEUMATOLOGY 01/29/21 Carole Neal MD [address] [place] [address] PULMONARY DISEASE 01/29/21
--- OUTSIDE RECORDS SUMMARY | 2025-01-06 15:25 | XMS_ITS | Encounter Summary ---
Author Organization [facility] Address [address] [place] [address] Care Team Providers Care Applications Support Specialist Name Role Phone Karan Ngo MD Unavailable Abdulkadir Craft MD Unavailable Carole eNal MD Unavailable [phone] Rohith Sen MD Primary Care Provider [phone] Encounter Details Date Type Department Care Team (Late st Contact Info) Description 01/30/[address] [facility] [id number] Maximo Jones MD [address] [facility] [place], [place] [id number] Social History Tobacco Use Types Packs/Day Years [...] Arthritis RA, osteoarthritis, psoriatric arthritis ??? Cancer ([facility]) leukemia as a child ??? Colitis ??? COPD (chronic obstructive pulmonary disease) ([facility]) ??? Coronary artery disease ??? 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 Diabetes mellitus ([facility]) ??? Diverticulitis ??? Emphysema lung ([facility]) ??? MVP (mitral valve prolapse) ??? Neuropathy feet ??? On supplemental oxygen by nasal cannula 4L O2 PRN ??? Seizure ([facility]) patient unsure about this ??? Stroke ([facility]) possible TIA? Allergies: Allergies Allergen Reactions ??? [...] on filedocumented in this encounter Care Teams Applications Support Specialist Relationship Specialty Start Date End Date Rohith Sen MD [address] [place] [id number] PCP - General FAMILY PRACTICE 02/03/23 Karan Ngo MD [address] [facility] [address] [place] [address] CARDIOVASCULAR DISEASE 01/29/21 [place] [address] [place] [address] Referring Physician RHEUMATOLOGY 01/29/21 Carole Neal MD [address] [place] [address] PULMONARY DISEASE 01/29/21 documented as of this encounter
--- OUTSIDE RECORDS SUMMARY | 2025-01-06 15:25 | XMS_ITS | Clinical Summary ---
Author Organization [facility] [address] [facility] [address] Address [address] [place] [address] Care Team Providers Care Slag Production Worker Name Role Phone Karan Ngo MD Unavailable Beatriz Cuevas NP Primary Care Provider [phone] Allergies Active Allergy Reactions Criticality Noted Date [...] 24 hr tabletIndications :Coronary artery disease of [place] artery of [place] heart with stable angina pectoris TAKE [...] 03/16/2020 Assessment & Plan (03/16/2020 2:22 PM HAND BOX FOLDER): Diagnosed in 2013- Had recurrent pancreatitis. Started [...] 03/16/2020 Assessment & Plan (03/16/2020 2:23 PM HAND BOX FOLDER): Complicated with CAD Controlled with medication - [...] (11/02/2018): Added automatically from request for surgery [id number] Assessment & Plan (12/11/2018 5:10 PM CDT): [...] - 11/07/2024 11:10 AM CDT [facility] [address] [place] [address] Ruba Pratt MD COPD exacerbation (HCC) (Primary Dx) Discharge Disposition: Discharge to home or self care 11/03/2024 11:39 AM CDT - 11/03/2024 1:05 PM CDT Emergency [facility] Emergency [facility] [address] [place] [address] Imer Chang MD COPD exacerbation (HCC) (Primary [...] drink = 0.6 oz pur e alcohol) [facility] Utilities Answer Date Recorded In the past 12 months has [place], gas, oil, or water [employer] threatened to shut off services in your [...] often do you attend chur ch or latter day services? More than 4 times per year 11/06/2024 Do you belong to any clubs o r organizations such as restorationism groups, unions, fraternal or athletic groups, or [...] any time in the past 12 m [facility], were you homeless or living in a longterm (including now)? No 11/06/2024 Personal Safety Answer Date Recorded Have you ever been in or are you currently in a harmful physical or emotional relationship or is someone making you feel afraid or unsafe? Denies 11/05/2024 Comments No Sex and Gender Information Value Date Recorded Sex Assigned at Not on file Legal Sex Female 1:49 PM HAND BOX FOLDER Gender Identity Not on file Sexual Orientation [...] 06/28/19 19 Medical Devices Implanted Type Area Senior Buyer Planner Device Identifier Shelf Expiration Date Model / Serial / Lot System Coronary Stent Synergy Pebax Everolimus Eluting [place] Chromium Plga L12 Mm L144 Cm Od2.25 Mm Radiopaque 1 Access Port Inflation Lumen Accepts .014 In Guidewire - [id number] Implanted:Qty: 1 on 04/06/2017 by Karan Ngo MD at [facility] [employer] 12/19/2017 [id number] / / [id number] Procedures Procedure Name Priority Date/Time Associated Diagnosis [...] HEMOGLOBIN A1C Routine 03/16/2020 2 :10 PM HAND BOX FOLDER Type 2 diabetes mellitus with hyperglycemia, with [...] - DEVICE Final Result Performing Organization Address City/[facility]/ZIP Co de Phone Number AUSTIN CUELLAR ([place]) 1 [facility] [place] [address] * (ABNORMAL) POCT glucose (11/07/2024 1:57 AM CDT) Glucose, POC 201(H) 70 - 199 mg/dL Blood 11/07/2024 1:57 AM CDT 11/07/2024 1:57 AM CDT us Ruba Pratt MD LAB POCT ORDERABLES - DEVICE Final Result Performing Organization Address City/[facility] Co de Phone Number AUSTIN CUELLAR ([place]) 1 [facility] [place] [address] * (ABNORMAL) POCT glucose (11/06/2024 7:34 PM CDT) Glucose, POC 282(H) 70 - 199 mg/dL Blood 11/06/2024 7:34 PM CDT 11/06/2024 7:34 PM CDT us uRba Pratt MD LAB POCT ORDERABLES - DEVICE Final Result Performing Organization Address City/[facility]/ZIP Co de Phone Number AUSTIN CUELLAR ([place]) 1 [facility] [place] [place] [address] * (ABNORMAL) POCT glucose (11/06/2024 4:31 PM CDT) Glucose, POC 253(H) 70 - 199 mg/dL Blood 11/06/2024 4:31 PM CDT 11/06/2024 4:31 PM CDT us Ruba Pratt MD LAB POCT ORDERABLES - DEVICE Final Result Performing Organization Address [facility] Co de Phone Number AUSTIN CUELLAR ([place]) 1 [facility] [place] [place] [address] * (ABNORMAL) POCT glucose (11/06/2024 11:12 AM CDT) Glucose, POC 214(H) 70 - 199 mg/dL Blood 11/06/2024 11:1 2 AM CDT 11/06/2024 11:12 AM CDT us Ruba Pratt MD LAB POCT ORDERABLES - DEVICE Final Result Performing Organization Address [facility] de Phone Number ASUTIN CUELLAR ([place]) 1 [facility] [place] [place] [address] * (ABNORMAL) POCT glucose (11/06/2024 7:36 AM CDT) Glucose, POC 229(H) 70 - 199 mg/dL Blood 11/06/2024 7:36 AM CDT 11/06/2024 7:36 AM CDT us Ruba Pratt MD LAB POCT ORDERABLES - DEVICE Final Result Performing Organization Address [facility] Co de Phone Number AUSTIN CUELLAR ([place]) 1 [facility] [place] [place] [address] * (ABNORMAL) POCT glucose (11/06/2024 2:13 AM CDT) Glucose, POC 317(H) 70 - 199 mg/dL Blood 11/06/2024 2:13 AM CDT 11/06/2024 2:13 AM CDT Ruba Pratt MD LAB POCT ORDERABLES - DEVICE Final Result Performing Organization Address [facility] Co de Phone Number AUSTIN CUELLAR ([place]ISH) 1 [facility] [place] [address] * (ABNORMAL) POCT glucose (11/05/2024 11:17 PM CDT) Glucose, POC 362(H) 70 - 199 mg/dL Blood 11/05/2024 11:1 7 PM CDT 11/05/2024 11:17 PM CDT us Ruba Pratt MD LAB POCT ORDERABLES - DEVICE Final Result AUSTIN CUELLAR ([place]) 1 [facility] [place] [place] [address] * (ABNORMAL) POCT glucose (11/05/2024 8:08 PM CDT) Glucose, POC 338(H) 70 - 199 mg/dL Blood 11/05/2024 8:08 PM CDT 11/05/2024 8:08 PM CDT us Ruba Pratt MD LAB POCT ORDERABLES - DEVICE Final Result Performing Organization Address City/[facility]/ZIP Co de Phone Number AUSTIN CUELLAR ([place]) 1 [facility] [place] [place] [address] * (ABNORMAL) POCT glucose (11/05/2024 7:25 PM CDT) Glucose, POC 389(H) 70 - 199 mg/dL Blood 11/05/2024 7:25 PM CDT 11/05/2024 7:25 PM CDT us Ruba Pratt MD LAB POCT ORDERABLES - DEVICE Final Result AUSTIN CUELLAR ([place]) 1 [facility] [place] [place] [address] * Troponin T high-sensitivity 6-hour (11/05/2024 6:25 PM CDT) Trop T hs 8 <=14 ng/L [facility] (ANISH) Comment: Interpretive Data For further hscTnT resources including the diagnostic algorithm and an aid in interpretation, copy and paste this link: https://nrl.Snabboteket.org/show/hsTrop Current Interpretive Data last revised 2020. Trop T hs delta -2 ng/L [facility] (ANISH) Trop T hs interp Insignificant [facility] ([place]) Blood 11/05/2024 6:25 PM CDT 11/05/2024 6:30 PM CDT Kaley ARIZMENDI LAB BLOOD ORDERABLES Tanika l Result [facility] ([place]ISH) 1 [facility] [employer] [place] [address] * (ABNORMAL) POCT glucose (11/05/2024 5:22 PM CDT) Pathologist [facility] Glucose, POC 247(H) 70 - 199 mg/dL Blood 11/05/2024 5:22 PM CDT 11/05/2024 5:22 PM CDT Ruba Pratt MD LAB POCT ORDERABLES - DEVICE Final Result [facility] ([place]) 1 [facility] [employer] [place] [place] [address] * Troponin T high-sensitivity 4-hour (11/05/2024 4:52 PM CDT) Trop T hs 7 <=14 ng/L [facility] ([place]ISH) Comment: Interpretive Data For further hscTnT resources including the diagnostic algorithm and an aid in interpretation, copy and paste this link: https://nrl.Snabboteket.org/show/hsTrop Current Interpretive Data last revised 2020. Trop T hs delta -3 ng/L [facility] ([place]ISH) Trop T hs interp Insignificant AUSTIN CUELLAR ([place]) Blood 11/05/2024 4:52 PM CDT 11/05/2024 5:09 PM CDT Kaley ARIZMENDI LAB BLOOD ORDERABLES Tanika l Result Performing Organization Address City/[facility]/ZIP Co de Phone Number AUSTIN CUELLAR ([place]) 1 [facility] [employer] [address] * eGFR (11/05/2024 4:52 PM CDT) eGFR [...] ORDERABLES Tanika l Result Performing Organization Address City/[facility]/ZIP Co de Phone Number AUSTIN CUELLAR ([place]) 1 [facility] [place] [employer] [place] [address] * (ABNORMAL) CBC without differential (11/05/2024 4:52 [...] Tanika ewing Result [facility] ([place]) 1 [facility] [place] [address] * (ABNORMAL) Comprehensive metabolic panel (11/05/2024 4:52 [...] Bilirubin, total 0.3 0.1 - 1.2 mg/dL [facility] ([place]) Protein, pl 7.6 6.5 - [...] ARIZMENDI LAB BLOOD ORDERABLES Tanika l Result [facility] ([place]ISH) 1 [facility] [place] [address] * Troponin T high-sensitivity 2-hour (11/05/2024 3:08 PM CDT) Trop T hs 9 <=14 ng/L [facility] ([place]) Comment: Interpretive Data For further hscTnT resources including the diagnostic algorithm and an aid in interpretation, copy and paste this link: https://nrl.testcatalog.org/show/hsTrop Current Interpretive Data last revised 2020. Trop T hs delta -1 ng/L [facility] ([place]) Trop T hs interp Insignificant [facility] ([place]) Blood 11/05/2024 3:08 PM CDT 11/05/2024 3:12 PM CDT Kaley ARIZMENDI LAB BLOOD ORDERABLES Tanika l Result Performing Organization Address [facility] Co de Phone Number [facility] ([place]) 1 [place] [address] * Blood gas, venous (11/05/2024 2:24 PM CDT) pH, Venous 7.32 7.32 - 7.43 PCO2, Venous 49 40 - 50 mmHg [facility] ([place]) PO2, Venous 86 mmHg [facility] ([place]) HCO3 Venous, Calculated 25 20 - 30 mmol/L [facility] ([place]) BE, venous -1 mmol/L [facility] ([place]) Comment: Interpretive Data No Reference Range Established Current Interpretive Data was last revised on 2017. Blood 11/05/2024 2:24 PM CDT 11/05/2024 2:30 PM CDT Kaley ARIZMENDI LAB BLOOD ORDERABLES Tanika l Result Performing Organization Address [facility] Co de Phone Number [facility] ([place]) [address] [place] [address] * Influenza A/B, RSV, and COVID-19 PCR Nasopharyngeal (11/05/2024 1:12 PM CDT) COVID-19 RNA Negative Negative Influenza A RNA Negative Negative [facility] ([place]) Influenza B RNA Negative Negative [facility] ([place]) RSV RNA Negative Negative [facility] ([place]) Comment: Interpretive data: Testing performed by [facility]. This test is performed using the [employer] Xpert Xpress CoV-2/Flu/RSV plus assay. This is a multiplex, real- time reverse transcriptase PCR assay intended for the qualitative detection of nucleic acid from SARS-CoV-2, influenza A, influenza B, and respiratory syncytial virus. This assay has been cleared by the [place] Food and Drug administration. The performance characteristics have been verified by the [facility]. Results must be considered in the clinical context, and a negative result does not rule out infection. Interpretive Data last revised 2023 Nasopharyngeal 11/05/2024 1: 12 PM CDT 11/05/2024 1:14 PM CDT Narrative AUSTIN CUELLAR ([place]) - 11/05/2024 1:52 PM CDT Is the Patient experiencing symptoms consistent with COVID?->Yes us Kaley ARIZMENDI LAB MICROBIOLOGY - GENERA L ORDERABLES Final Result AUSTIN CUELLAR ([place]) 1 [facility] [place] [address] * XR Chest 1 Vw Portable (11/05/2024 [...] Carlos Grossman D.O. PS: PS Report ID: [id number] Reading Location: [id number] Procedure Note Chauncey Carlos Cardenas, DO - [...] Carlos Grossman D.O. PS: PS Report ID: [id number] Reading Location: [id number] Kaley ARIZMENDI IMG XR PROCEDURES Final R esult * Troponin T high-sensitivity series (baseline, 2hr, 4hr, 6hr) (11/05/2024 12:59 PM CDT) Trop T hs 10 <=14 ng/L AUSTIN CUELLAR ([place]) Comment: Interpretive Data For further hscTnT resources including the diagnostic algorithm and an aid in interpretation, copy and paste this link: https://nrl.testcatalog.org/show/hsTrop Current Interpretive Data last revised 2020. Blood 11/05/2024 12:5 9 PM CDT 11/05/2024 1:09 PM CDT Kaley ARIZMENDI LAB BLOOD ORDERABLES Tanika gildardo Result AUSTIN CUELLAR ([place]) 1 [facility] [place] [address] * eGFR (11/05/2024 12:59 PM CDT) eGFR [...] ARIZMENDI LAB BLOOD ORDERABLES Tanika ewing Result [facility] ([place]) 1 [facility] [place] [address] * (ABNORMAL) Differential, auto (11/05/2024 12:59 PM CDT) Neutrophil abs 7.70(H) 1.50 - 6.50 K/cumm Imm gran abs 0.04 0.00 - 0.10 K/cumm [facility] ([place]) Lymphocyte abs 1.80 0.80 - 3.30 K/cumm [...] Tanika ewing Result AUSTIN CUELLAR (ANISH) 1 [facility] [place] [address] * (ABNORMAL) Pro B-type natriuretic peptide (11/05/2024 12:59 PM CDT) NT-proBNP 308(H) <=300 pg/mL A[facility]IN AL[facility] ([place]) Comment: Interpretive Comments: A. Dyspnea in Acute [...] BLOOD ORDERABLES Tanika l Result AUSTIN CUELLAR ([place]) 1 [facility] Department of Laboratories [place], [place] [id number] * (ABNORMAL) CBC with auto differential (11/05/2024 12:59 PM CDT) Pathologist [facility] WBC 9.83 3.80 - 9.90 K/cumm Hgb [...] Tanika ewing Result [facility] ([place]) 1 [facility] [place] [address] * Comprehensive metabolic panel (11/05/2024 12:59 PM [...] LAB BLOOD ORDERABLES Tanika l Result [facility]IN [facility] (ANISH) 1 [facility] [place] [address] * ECG 12 lead (11/05/2024 12:54 PM CDT) 11/05/2024 12:5 4 PM CDT Narrative [facility] - 11/05/2024 1:57 PM CDT Vent Rate: 65 bpm RR Interval: 921 msec CO Interval: 152 msec QRS Duration: 93 msec QT Interval: 394 msec QTC Interval: 405 msec P-R-T [place]: 60 - 50 - 52 degrees IMPRESSION: SINUS RHYTHM NORMAL ECG NO CHANGE FROM PREVIOUS TRACING NOTED Electronically Signed By: Mainor Lopez MD us Brenda Mast MD ECG ORDERABLES Final Res ult Performing Organization Address [facility] de Phone Number [facility] [employer] [facility] * ECG 12 lead (11/03/2024 11:55 AM CDT) 11/03/2024 11:5 5 AM CDT Narrative [facility] - 11/04/2024 6:49 AM CDT Vent Rate: 75 bpm RR Interval: 796 msec CO Interval: 161 msec QRS Duration: 84 msec QT Interval: 380 msec QTC Interval: 409 msec P-R-T [place]: 56 - 53 - 55 degrees IMPRESSION: SINUS RHYTHM LOW QRS VOLTAGE IN PRECORDIAL LEADS [QRS DEFLECTION < 1.0 mV IN CHEST LEADS] BORDERLINE ECG NO CHANGE FROM PREVIOUS TRACING NOTED Electronically Signed By: Mainor Lopez MD Imer Chang MD ECG ORDERABLES Final Result Performing Organization Address [facility] de Phone Number [facility] [employer] [facility] * XR CHEST 1 VIEW [...] by Rubio Gallego M.D. CH: Report ID: [id number] Reading Location: [id number] Procedure Note Rubio Gallego Jr., MD - [...] by Rubio Gallego M.D. CH: Report ID: [id number] Reading Location: [id number] Imer Chang MD IMG XR PROCEDURES Final Resu lt * Influenza A/B, RSV, and COVID-19 PCR Nasopharyngeal (11/03/2024 11:47 AM CDT) COVID-19 RNA Negative Negative Influenza A RNA Negative Negative [facility] ([place]) Influenza B RNA Negative Negative [facility] ([place]) RSV RNA Negative Negative [facility] (ANISH) Comment: Interpretive data: Testing performed by [facility]. This test is performed using the [employer] Xpert Xpress CoV-2/Flu/RSV plus assay. This is a multiplex, real- time reverse transcriptase PCR assay intended for the qualitative detection of nucleic acid from SARS-CoV-2, influenza A, influenza B, and respiratory syncytial virus. This assay has been cleared by the [place] Food and Drug administration. The performance characteristics have been verified by the [facility]. Results must be considered in the clinical context, and a negative result does not rule out infection. Interpretive Data last revised 2023 Nasopharyngeal 11/03/2024 11 :47 AM CDT 11/03/2024 11:52 AM CDT Narrative AUSTIN CUELLAR ([place]) - 11/03/2024 12:40 PM CDT Is the Patient experiencing symptoms consistent with COVID?->Yes Imer Chang MD LAB MICROBIOLOGY - GENERAL O RDERABLES Final Result Performing Organization Address [facility] Co de Phone Number AUSTIN CUELLAR ([place]) 1 [facility] [employer] [place] [address] * Troponin T high-sensitivity series (baseline, 2hr, [...] ORDERABLES Final R esult Performing Organization Address [facility] Co de Phone Number AUSTIN CUELLAR ([place]) 1 [facility] [place] [place] [address] * Sepsis Lactate w/ Reflex (11/03/2024 11:45 AM CDT) Sepsis Lactate 1.7 0.7 - 2.0 mmol/L Blood 11/03/2024 11:4 5 AM CDT 11/03/2024 11:48 AM CDT Imer Chang MD LAB BLOOD ORDERABLES Final R esult Performing Organization Address [facility] Co de Phone Number AUSTIN CUELLAR ([place]) 1 [facility] [place] [place] [address] * eGFR (11/03/2024 11:45 AM CDT) eGFR [...] LAB BLOOD ORDERABLES Final R esult [facility] ([place]) 1 [facility] [place] [address] * Differential, auto (11/03/2024 11:45 AM CDT) Neutrophil abs 3.34 1.50 - 6.50 K/cumm Imm gran abs 0.01 0.00 - 0.10 K/cumm [facility] ([place]) Lymphocyte abs 1.36 0.80 - 3.30 K/cumm [facility] ([place]) Monocyte abs 0.60 0.20 - 0.80 K/cumm [...] Final R esult AUSTIN CUELLAR ([place]ISH) 1 [facility] [place] [address] * Pro B-type natriuretic peptide [...] BLOOD ORDERABLES Final R esult AUSTIN CUELLAR ([place]) 1 [facility] [place] [address] * (ABNORMAL) CBC with auto differential (11/03/2024 11:45 AM CDT) WBC 5.38 3.80 - 9.90 K/cumm Hgb 13.6 11.9 - 15.5 g/dL AUSTIN CUELLAR ([place]) Hct 41.9 35.6 - 45.5 % AUSTIN CUELLAR ([place]) Plt 158 150 - 400 K/cumm [facility] ([place]) MPV 10.3 9.1 - 12.3 fL [facility] ([place] RBC 4.59 3.90 - 5.20 M/cumm [facility] ([place]) MCV 91.3 81.3 - 96.4 fL [facility] ([place]) MCH 29.6 27.1 - 33.3 pg [facility] ([place]) MCHC 32.5 32.3 - 35.7 g/dL [facility] ([place]) RDW CV 15.0(H) 11.1 - 14.9 % [facility] ([place]) RDW SD 50.4(H) 35.7 - 48.1 fL [facility] ([place]) NRBC abs 0.00 0.00 - 0.01 K/cumm [facility] ([place]) Blood 11/03/2024 11:4 5 AM CDT 11/03/2024 11:48 AM CDT Imer Chang MD LAB BLOOD ORDERABLES Final R esult Performing Organization Address [facility] Co de Phone Number AUSTIN CUELLAR ([place]) 1 [facility] Department [place] [address] * (ABNORMAL) Blood gas, venous (11/03/2024 11:45 AM CDT) pH, Venous 7.34 7.32 - 7.43 PCO2, Venous 53(H) 40 - 50 mmHg [facility] ([place]ISH) PO2, Venous 24 mmHg [facility] ([place]ISH) HCO3 Venous, Calculated 28 20 - 30 mmol/L [facility] ([place]) BE, venous 1 mmol/L [facility] ([place]ISH) Comment: Interpretive Data No Reference Range Established Current Interpretive Data was last revised on 2017. Blood 11/03/2024 11:4 5 AM CDT 11/03/2024 11:50 AM CDT Imer Chang MD LAB BLOOD ORDERABLES Final R esult Performing Organization Address [facility] Co de Phone Number [facility] ([place]ISH) 1 [facility] [place] [address] * Comprehensive metabolic panel (11/03/2024 11:45 AM [...] BLOOD ORDERABLES Final R esult [facility] ([place]) 1 [facility] Department [place] [address] * (ABNORMAL) POCT lipid panel (10/02/2024 10:59 [...] * POCT hemoglobin A1c (03/16/2020 2:10 PM HAND BOX FOLDER) Hemoglobin A1C, POC 7.1 Blood specimen (specimen) 03/16/2020 2:10 PM HAND BOX FOLDER Result [facility] Abena Ronquillo MD POINT OF CARE TEST ORDERABLES Final Result * DIABETES EYE EXAM (02/06/2019) Pathologist [facility] Diabetic Eye Exam Unknown Wendy Wolff MD HEALTH MAINTENANCE Final Result from Last 3 Months or Most Recently Relevant to Health Maintenance Insurance [facility] MEDICARE ADVANTAGE Advance Directives For more information, please contact: [phone] * Full Code (Latest Code Status on File) Date Activated Date Inactivated Comments 11/05/2024 4:12 PM 11/07/2024 3:15 PM * Full Code Date Activated Date Inactivated Comments 10/10/2020 6:56 PM 10/12/2020 5:57 PM * Full Code Date Activated Date Inactivated Comments 11/30/2018 7:41 AM 11/30/2018 1:32 PM * Full Code Date Activated Date Inactivated Comments 04/06/2017 3:48 PM 04/07/2017 2:06 PM Care Teams Slag Production Worker Relationship Specialty Start Date End Date Beatriz Cuevas NP [address] [place] [address] PCP - General Nurse Practitioner 10/02/24 Karan Ngo MD [address] [place] [address] [facility] [address], [place] [address] [place] [address] Consulting Physician Cardiology 11/02/18
--- OUTSIDE RECORDS SUMMARY | 2025-01-06 15:25 | XMS_ITS | Encounter Summary ---
Author Organization [facility] Healthcare Address [address] [place] [address] Care Team Providers Care Carton And Can Supply Supervisor Name Role Phone Karan Ngo MD Unavailable Rohith Sen MD Primary Care Provider [phone] Beatriz Cuevas NP Primary Care Provider [phone] Encounter Details Date Type Department Care Team (Late st Contact Info) Description 03/07/2024 Orders Only [facility] Health Information Management [address] [place] [id number] Scanning, Provider Social History Tobacco Use [...] on file Legal Sex Female 1:49 PM PRIVATE SECURITY GUARD Gender Identity Not on file Sexual Orientation [...] documented as of this encounter Care Teams [employer] Can [employer] Supervisor Relationship Specialty Start Date End Date Rohith Sen MD [address] [place] [address] [place] [address] [place] [address] PCP - General Family Practice 12/05/23 10/01/24 Beatriz Cuevas NP [address] [place] [address] PCP - General Nurse Practitioner 10/02/24 Karan Ngo MD [address] [place] [address], [place] [address] [place] [address] Consulting Physician Cardiology 11/02/18 documented as of this encounter
--- OUTSIDE RECORDS SUMMARY | 2025-01-06 15:25 | XMS_ITS | Encounter Summary ---
Author Organization [facility] Address [address] [place] [address] Care Team Providers Care Boring And Filling Machine Operator Name Role Phone Karan Ngo MD Unavailable Abdulkadir Craft MD Unavailable Carole Neal MD Unavailable [phone] Rohith Sen MD Primary Care Provider [phone] Encounter Details Date Type Department Care Team (Late st Contact Info) Description 11/17/2015 Abstract [facility] CONVERSION [address] [place], [place] [id number] , Olinda Polo MD Social History Tobacco [...] on filedocumented in this encounter Care Teams Boring And Filling Machine Operator Relationship Specialty Start Date End Date Rohith Sen MD [address] [place] [address] PCP - General FAMILY PRACTICE 02/03/23 Karan Ngo MD [address] [address] CARDIOVASCULAR DISEASE 01/29/21 [place] [address] [place] [address] Referring Physician RHEUMATOLOGY 01/29/21 Carole Neal MD [address] [place] [address] PULMONARY DISEASE 01/29/21 documented as of this encounter
--- OUTSIDE RECORDS SUMMARY | 2025-01-06 15:25 | XMS_ITS | Clinical Summary ---
Author Organization [facility] Address [address] [facility], [place] [address] Phone Care Team Providers Care Booth Manager Name Role Phone Joseph Sweet MD Primary Care Provider [phone] Kenneth Ward DPM Unavailable [phone] Hermann Olivia DO Unavailable [phone] Naida Odonnell MD Unavailable Allergies Active [...] patient's age to complete this topic Insurance [facility] MEDICARE Care Teams Booth Manager Relationship Specialty Start Date End Date Joseph Sweet MD [address] [place] [address] PCP - General Family Medicine 06/12/15 Kenneth Ward DPM [address] [place] [address] Podiatry 06/12/15 Hermann Olivia [place] [address] Gastroenterology 02/02/16 Naida Odonnell MD [address] [place] [address] Family Medicine 02/02/16
[2025-01-06 15:39] LABS: Troponin I < 0.012 ng/mL (0.000-0.034)
== END 2025-01-06 16:41 | disposition home or self-care (01) ==
PROVIDERS: Student in an Organized Health Care Education/Training Program; Emergency Provider Emergency Medicine; PCP Nurse Practitioner Adult Health
DX: J40 Bronchitis, not specified as acute or chronic (principal); E78.5 Hyperlipidemia, unspecified; I25.10 Atherosclerotic heart disease of native coronary artery without angina pectoris; Z85.828 Personal history of other malignant neoplasm of skin; Z87.891 Personal history of nicotine dependence
CPT/HCPCS: 36415; 71046; 80053; 83690; 84484; 85025; 85610; 85730; 93005; 94640; 96374; 99284; A9270; J1885

== ENCOUNTER 2025-01-24 13:58 | Outpatient (CLI) | payer MEDICARE, SELFPAY ==
--- NOTE | ~2025-01-24 | MM_ITS ---
EXAMINATION: MM screening [facility] BI w rodney HISTORY: Screening TECHNIQUE: Craniocaudal and mediolateral oblique 3-D tomosynthesis images were obtained and synthetic 2-D images were generated. CAD analysis was submitted and interpreted. COMPARISON: Comparison to multiple prior studies sequentially, with oldest reviewed study dated 11/22/2016. BREAST PARENCHYMAL COMPOSITION: Not dense: There are scattered areas of fibroglandular density. FINDINGS: There is no evidence of suspicious mass, calcification, or architectural distortion to suggest malignancy in either breast. There has been no suspicious interval change. IMPRESSION: 1. No mammographic evidence of malignancy. 2. Recommend routine screening mammography in one year. BI-RADS Category 1: Negative Reviewed, dictated and finalized at location B.
--- OUTSIDE RECORDS SUMMARY | 2025-01-24 14:02 | XMS_ITS | Encounter Summary ---
Author Organization [facility] Address [address] [place] [address] Care Team Providers Care Asbestos Siding Mechanic Name Role Phone Karan Ngo MD Unavailable Abdulkadir Craft MD Unavailable Carole Neal MD Unavailable [phone] Rohith Sen MD Primary Care Provider [phone] Encounter Details Date Type Department Care Team (Late st Contact Info) Description 11/17/2015 Abstract [facility] CONVERSION [address] [place], [place] [id number] , Olinda Polo MD Social History Tobacco [...] on filedocumented in this encounter Care Teams Asbestos Siding Mechanic Relationship Specialty Start Date End Date Rohith Sen MD [address] [place] [address] PCP - General FAMILY PRACTICE 02/03/23 Karan Ngo MD [address] [address] CARDIOVASCULAR DISEASE 01/29/21 [place] [address] [place] [address] Referring Physician RHEUMATOLOGY 01/29/21 Carole Neal MD [address] [place] [address] PULMONARY DISEASE 01/29/21 documented as of this encounter
--- OUTSIDE RECORDS SUMMARY | 2025-01-24 14:02 | XMS_ITS | Encounter Summary ---
Author Organization [facility] Address [address] [place] [address] Care Team Providers Care Zanjero Name Role Phone Karan Ngo MD Unavailable Beatriz Cuevas NP Primary Care Provider [phone] Reason for Referral * Diagnostic Imaging (Routine) - Pending Review Specialty Diagnoses / Procedures Referred By Alanis trinidad Referred To Contact Diagnoses Infrarenal abdominal aortic aneurysm (AAA) without rupture Procedures US Abdominal Aorta Karan Ngo MD [address] [facility] [address] [place] [address] Phone: tel: fax: [facility] Referral ID Status Reason Start Date Expiration Date V isits Requested Visits Authorized [id number] Pending Review 01/23/2025 02/22/2026 1 1 Encounter Details Date Type Department Care Team (Late st Contact Info) Description 01/23/2025 Telephone [facility] Cardiology [address] [facility] [address] [place] [address] Karan Ngo MD [address] [place] [address] Social History Tobacco Use Types Packs/Day Years Used Date Smoking Tobacco: Some Days Cigarettes 0.8 50 Smokeless Tobacco: Never Comments:2 Cigs a Day Alcohol Use Standard Drinks/Week Comments No 0 (1 standard drink = 0.6 oz pur e alcohol) [facility] Utilities Answer Date Recorded In the past 12 months has th e electric, gas, oil, or water company threatened to shut off services in your [...] often do you attend chur ch or holiness services? More than 4 times per year 11/06/2024 Do you belong to any clubs o r organizations such as rastafarian groups, unions, fraternal or athletic groups, or [...] any time in the past 12 m [facility], were you homeless or living in a [place] facility (including now)? No 11/06/2024 Personal Safety Answer Date Recorded Have you ever been in or are you currently in a harmful physical or emotional relationship or is someone making you feel afraid or unsafe? 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 * Telephone Encounter - Lucy Ricardo - 01/23/2025 10:11 AM CDT I rec'd a phone call from Valorie @ [facility] regarding pt's test that is scheduled for tomorrow at [facility]. Valorie is unsure if we ordered the correct test because of the dx we listed (monitor triple a). Please return Valorie's call. P: [phone] Sent to nurse [place]. documented in this encounter Plan of Treatment Scheduled Orders Name Type Priority Associated Diagnoses Orde r Schedule US Abdominal Aorta Imaging Schedule Rout ine, Read Routine (OP Routine) Infrarenal abdominal aortic aneurysm (AAA) without rupture Expected: 01/23/2025, Expires: 01/23/2026 documented as of this encounter Visit Diagnoses Diagnosis Infrarenal abdominal aortic aneurysm (AAA) without rupture- Primary documented in this encounter Care Teams Zanjero Relationship Specialty Start Date End Date Beatriz Cuevas NP [address] [place] [address] PCP - General Nurse Practitioner 10/02/24 Karan Ngo MD [address] [facility] [address] [facility] [address] [place] [address] Consulting Physician Cardiology 11/02/18 documented as of this encounter
--- OUTSIDE RECORDS SUMMARY | 2025-01-24 14:02 | XMS_ITS | Encounter Summary ---
Author Organization [facility] Address [address] [place] [address] Care Team Providers Care Property Underwriter Name Role Phone Karan Ngo MD Unavailable Abdulkadir Craft MD Unavailable Carole Neal MD Unavailable Rohith Sen MD Primary Care Provider Encounter Details Date Type Department Care Team (Late st Contact Info) Description 01/30/[address] [facility] [place] [id number] Maximo Jones MD [address] [facility]. [place], [place] [id number] Social History Tobacco Use Types Packs/Day Years [...] Arthritis RA, osteoarthritis, psoriatric arthritis ??? Cancer ([facility]) leukemia as a child ??? Colitis ??? COPD (chronic obstructive pulmonary disease) ([facility]) ??? Coronary artery disease ??? 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 Diabetes mellitus ([facility]) ??? Diverticulitis ??? Emphysema lung ([facility]) ??? MVP (mitral valve prolapse) ??? Neuropathy feet ??? On supplemental oxygen by nasal cannula 4L O2 PRN ??? Seizure ([facility]) patient unsure about this ??? Stroke ([facility]) possible TIA? Allergies: [...] on filedocumented in this encounter Care Teams Property Underwriter Relationship Specialty Start Date End Date Rohith Sen MD [address] [place] [id number] PCP - General FAMILY PRACTICE 02/03/23 Karan Ngo MD [address] [facility] [address] [place] [address] CARDIOVASCULAR DISEASE 01/29/21 [place] [address] [place] [address] Referring Physician RHEUMATOLOGY 01/29/21 Carole Neal MD [address] [place] [address] PULMONARY DISEASE 01/29/21 documented as of this encounter
--- OUTSIDE RECORDS SUMMARY | 2025-01-24 14:02 | XMS_ITS | Encounter Summary ---
Author Organization [facility] Address [address] [place] [address] Care Team Providers Care Director Translational Name Role Phone Karan Ngo MD Unavailable Rohith Sen MD Primary Care Provider [phone] Beatriz Cuevas NP Primary Care Provider [phone] Encounter Details Date Type Department Care Team (Late st Contact Info) Description 03/07/2024 Orders Only [facility] Information Management [address] [place] [address] Scanning, Provider Social History Tobacco Use [...] on file 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
--- OUTSIDE RECORDS SUMMARY | 2025-01-24 14:02 | XMS_ITS | Encounter Summary ---
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 03/05/2021 06/08/2021 07/03/2021 3:[address] COVID: Suspected 11/03/2024 11/03/2024 11/03/2024 12:41 PM CDT COVID: Suspected 11/05/2024 11/05/2024 11/05/2024 1:53 PM CDT documented as of this encounter Care Teams Fuse Maker Relationship Specialty Start Date End Date Gin Wilson MD [address] [place] [address] PCP - General Family Practice 06/19/19 01/31/21 Gin Wilson MD [address] [place] [address] PCP - General Family Practice 02/01/21 12/04/23 Rohith Sen MD [address] [place] [address] PCP - General Family Practice 12/05/23 10/01/24 Beatriz Cuevas NP [address] [place] [address] PCP - General Nurse Practitioner 10/02/24 Karan Ngo MD [address] [place], [place] [id number] Consulting Physician Cardiology 11/02/18 documented as of this encounter
--- OUTSIDE RECORDS SUMMARY | 2025-01-24 14:02 | XMS_ITS | Clinical Summary ---
Author Organization [facility] Address [address] [facility] [place] [address] Phone Care Team Providers Care Prescriptionist Name Role Phone Joseph Sweet MD Primary Care Provider [phone] Kenneth Ward DPM Unavailable [phone] Hermann Olivia DO Unavailable [phone] Naida Odonnell MD Unavailable Allergies Active [...] years 1-dose series) 2016 Influenza Immunization (#1) 2024 SARS-COV-2 Immunization ( season) 2024 Hepatitis B Immunization Aged Out No [...] patient's age to complete this topic Insurance [facility] MEDICARE Care Teams Prescriptionist Relationship Specialty Start Date End Date Joseph Sweet MD [address] [place] [address] PCP - General Family Medicine 06/12/15 Kenneth Ward DPM [address] [place] [address] Podiatry 06/12/15 Hermann Olivia [place] [address] Gastroenterology 02/02/16 Naida Odonnell MD [address] [place] [address] Family Medicine 02/02/16
--- OUTSIDE RECORDS SUMMARY | 2025-01-24 14:03 | XMS_ITS | Clinical Summary ---
Author Organization [facility] Address [address] [place] [address] Care Team Providers Care Architectural Wood Model Maker Name Role Phone Karan Ngo MD Unavailable Abdulkadir Craft MD Unavailable Carole Neal MD Unavailable [phone] Rohith Sen MD Primary Care Provider [phone] Allergies Active Allergy Reactions Criticality Noted Date [...] age to complete this topic Insurance [employer] [facility] MEDICARE Care Teams Architectural Wood Model Maker Relationship Specialty Start Date End Date Rohith Sen MD [address] [place] [address] PCP - General FAMILY PRACTICE 02/03/23 Karan Ngo MD [address] [facility] [address] [place] [address] CARDIOVASCULAR DISEASE 01/29/21 [place] [address] [place] [address] Referring Physician RHEUMATOLOGY 01/29/21 Carole Neal MD [address] [place] [address] PULMONARY DISEASE 01/29/21
--- OUTSIDE RECORDS SUMMARY | 2025-01-24 14:03 | XMS_ITS | Clinical Summary ---
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 25 tablet 3 Active ezetimibe (ZETIA) 10 mg tablet Take 1 tablet (10 mg total) by mouth daily 30 tablet 11 Active rosuvastatin (CRESTOR) 40 mg tablet TAKE 1 TABLET BY MOUTH EVERY DAY AT NIGHT 90 tablet 3 024 Active clopidogreL (PLAVIX) 75 mg tablet TAKE 1 TABLET BY MOUTH EVERY DAY 90 tablet 1 Active lisinopriL (PRINIVIL,ZESTRI L) 5 mg tablet TAKE 1 TABLET (5 MG TOTAL) BY MOUTH DAILY. 90 tablet 1 Active glycopyrrolate-f ormoteroL (BEVESPI AEROSPHERE) 9-4.8 mcg inhaler Inhale 2 puffs 2 (two) times a day 1 each 11 Active nicotine (NICODERM CQ) [address] 1 patch on the skin daily for 24 hours 30 patch 2 Active varenicline tartrate (CHANTIX JUAN C) 0.5 mg (11)- 1 mg (42) tablet Take 0.5 mg by mouth 2 (two) times a day 53 tablet 025 2024 Active empagliflozin (JARDIANCE) 25 mg tablet Take 1 tablet (25 mg total) by mouth daily Active sulfamethoxazole -trimethoprim (BACTRIM) 800-160 mg per tablet Take 1 tablet (160 mg of trimethoprim total) by mouth 2 (two) times a day for 10 days smx-tmp DS (BACTRIM) 800-160 mg tabs 20 tablet 025 2024 Active isosorbide mononitrate ER (IMDUR) 60 mg 24 hr tabletIndication s:Coronary artery disease of [place] artery of [place] heart with stable angina pectoris TAKE 1 TABLET BY MOUTH EVERY DAY 90 tablet 3 025 Active carvediloL (COREG) 3.125 mg tablet TAKE 1 TABLET BY MOUTH TWICE A DAY WITH MEALS 180 tablet 3 Active insulin lispro (HumaLOG, ADMELOG) 100 unit/mL vial for injection 5 UNITS SUBCUTANEOUSLY 3 TIMES DAILY PRIOR TO MEALS IF BLOOD SUGAR > 150 024 2024 Discontinued(N o longer taking - Do not display on AVS) isosorbide mononitrate ER (IMDUR) 60 mg 24 hr tabletIndication s:Coronary artery disease of [place] artery of [place] heart with stable angina pectoris TAKE 1 TABLET BY MOUTH EVERY DAY 90 tablet 3 024 2024 Discontinued carvediloL (COREG) 3.125 mg tablet Take 1 tablet (3.125 mg total) by mouth 2 (two) times a day with meals 180 tablet 1 025 2024 Discontinued Active Problems Problem Noted Date Diagnosed Date COPD exacerbation ([facility]) 10/10/2020 Acute on chronic respiratory failure with hypoxe brian 10/10/2020 Pancreatic cyst 03/23/2020 Type 2 diabetes mellitus wit h hyperglycemia, with long-term current use of insulin 03/16/2020 Assessment & Plan (03/16/2020 2:22 PM MASTER BAKER): Diagnosed in 2013- Had recurrent pancreatitis. Started [...] 03/16/2020 Assessment & Plan (03/16/2020 2:23 PM MASTER BAKER): Complicated with CAD Controlled with medication - [...] (11/02/2018): Added automatically from request for surgery [id number] Assessment & Plan (12/11/2018 5:10 PM CDT): [...] Encounters Date Type Department Care Team Description 01/23/2025 Telephone [facility] Cardiology [address] [place] [id number] Karan Ngo MD 01/17/2025 2:15 PM CDT - 01/17/2025 4:55 PM CDT Emergency [facility] Emergency Department [address] [place] [address] Left genital labial abscess (Primary Dx) Discharge Disposition: Discharge to home or self care 01/16/2025 10:30 AM CDT Office Visit [facility] Cardiology [address] [place] [address] Marta Concepcion NP Coronary artery disease of [place] artery of [place] heart with stable angina pectoris; Infrarenal abdominal aortic aneurysm (AAA) without rupture; Tobacco abuse; Palpitations 11/05/2024 12:50 PM CDT - 11/07/2024 11:10 AM CDT Hospital Encounter [facility] Acute Medicine [address] [place] [address] Ruba Pratt MD COPD exacerbation (HCC) (Primary Dx) Discharge Disposition: Discharge to home or self care 11/03/2024 11:39 AM CDT - 11/03/2024 1:05 PM CDT Emergency [facility] Emergency Department [address] [place] [address] Imer Chang MD COPD exacerbation (HCC) (Primary Dx) Discharge Disposition: Discharge to home or self care from Last 3 Months Surgical History Surgery Date Site/Laterality Comments CARDIAC STENT PLACEMENT CHOLECYSTECTOMY TONSILLECTOMY JOINT REPLACEMENT bilateral knees HERNIA REPAIR X 3 GANGLION CYST EXCISION X 3 Medical History Medical History Date Comments Hyperlipidemia GERD (gastroesophageal reflux disease) Diverticulitis Sleep apnea Valvular disease Diabetes mellitus AAA (abdominal aortic aneurysm) Neuropathy RA (rheumatoid [...] drink = 0.6 oz pur e alcohol) [facility] Utilities Answer Date Recorded In the past 12 months has [facility], oil, or water [employer] threatened to shut off services in your [...] week 11/06/2024 How often do you attend [facility] or adventism services? More than 4 times per year 11/06/2024 Do you belong to any clubs o r organizations such as methodist groups, unions, fraternal or athletic groups, or [...] any time in the past 12 [place], were you homeless or living in a [...] on file Legal Sex Female 1:49 PM MASTER BAKER Gender Identity Not on file Sexual Orientation Not on file Obstetrics History Last Filed Vital Signs Vital Sign Reading Time Taken Comments Blood Pressure 129/75 01/17/2025 12:55 PM CDT Pulse 78 01/17/2025 12:55 PM CDT Temperature 36.3 C (97.3 F) 01/17/2025 12:55 PM CDT Respiratory Rate 18 01/17/2025 12:55 PM CDT Oxygen Saturation 96% 01/17/2025 12:55 PM CDT Inhaled Oxygen Concentration - - Weight 82.1 kg (181 lb) 01/17/2025 12:55 PM CDT Height 160 cm (5' 3) 01/17/2025 12:55 PM CDT Body Mass Index 32.06 01/17/2025 12:55 PM CDT Plan of Treatment Health Maintenance [...] 09/19/2020 09/20/2019, 07/10/2018 Well Visit 65+ 2021 Covid-19 Vaccine (3 - 2024-2 6 season) 2024 07/31/2020, 07/10/2020 Influenza Vaccine (#1) 2024 02/14/2024 Lipid Panel 10/02/2025 10/02/2024, 08/06/2023, 12/16/2021, Additional history exists Fall Risk Assessment 11/07/2025 11/07/2024, 06/28/19 19 eGFR 01/17/2026 01/17/2025, 0708/2024, 11/05/2024, Additional history exists Medical Devices Implanted Type Area Pinball Machine Repairer Device Identifier Shelf Expiration Date Model / Serial / Lot System Coronary Stent Synergy Pebax Everolimus Eluting [place] Chromium Plga L12 Mm L144 Cm Od2.25 Mm Radiopaque 1 Access Port Inflation Lumen Accepts .014 In Guidewire - [id number] Implanted:Qty: 1 on 04/06/2017 by Karan Ngo MD at [facility] [employer] 12/19/2017 [id number] / / [id number] Procedures Procedure Name Priority Date/Time Associated Diagnosis Comments ED INCISION AND DRAINAGE Routine 01/17/2025 4:30 PM CDT EGFR STAT 01/17/2025 2:59 PM CDT DIFFERENTIAL AUTO STAT 01/17/2025 2:5 9 PM CDT COMPREHENSIVE METABOLIC PANEL STAT 01/17/2025 2:59 PM CDT CBC WITH AUTO DIFFERENTIAL STAT 01/17/2025 2:59 PM CDT URINALYSIS AND REFLEX TO MICROSCOPIC AND CULTURE STAT 01/17/2025 2:59 PM CDT POCT GLUCOSE DEVICE Routine 11/07/2024 7 :34 [...] HEMOGLOBIN A1C Routine 03/16/2020 2 :10 PM MASTER BAKER Type 2 diabetes mellitus with hyperglycemia, with long-term current use of insulin (HCC) DIABETES EYE EXAM Routine 02/06/2019 from Last 3 Months or Most Recently Relevant to Health Maintenance Results * Incision and Drainage (01/17/2025 4:30 PM CDT) Narrative Lauryn Frye PA - 01/17/2025 4:30 PM CDT Lauryn Frye PA 01/17/2025 7:04 PM Incision and Drainage Date/Time: 01/17/2025 4:30 PM Performed by: Lauryn Frye PA Authorized by: Satish Estrada MD RN Notified of Procedure: yes Informed consent: Risks, benefits, alternatives discussed Patient's stated name/ matches armband: Yes Allergies confirmed: yes Consent form signed, dated, timed; matches correct patient, intended procedure and site: No consent form due to emergent status Imaging: N/a Lab/Diag test results: N/a Supplies, devices and special equipment are available: yes Site/side marked: yes Immediately prior to the procedure a time out was called: a verbal verification by the procedure participants confirmed correct patient identity, correct site/side marked and visible (if applicable); agreement on procedure to be done; and correct patient positioning Type: Abscess Location: Anogenital Anogenital location: Vulva Skin preparation: Betadine Anesthesia method: Local infiltration Local anesthetic: Lidocaine 1% Needle aspiration: no Incision types: Single straight Incision depth: Dermal Scalpel blade: 11 Wound management: Probed and deloculated Drainage: Bloody and purulent Drainage amount: Moderate Wound treatment: Wound left open Packing materials: None Patient tolerance of procedure: Tolerated well, no immediate complications us Satish Estrada MD IN CLINIC/BEDSIDE ORDERABL ES Final Result * eGFR (01/17/2025 2:59 PM CDT) eGFR 61 >=60 mL/min/1. 73 m2 Comment: Interpretive Data [...] interpretive data was last reviewed 2021. Blood 01/17/2025 2:59 PM CDT 01/17/2025 3:11 PM CDT us Lauryn ARIZMENDI LAB BLOOD ORDERABLES Final Resu lt [facility] 1 [facility] [place] [address] * (ABNORMAL) Differential, auto (01/17/2025 2:59 PM CDT) Neutrophil abs 7.74(H) 1.50 - 6.50 K/cumm Imm gran abs 0.04 0.00 - 0.10 K/cumm [facility] ([place]) Lymphocyte abs 2.14 0.80 - 3.30 K/cumm [facility]) Monocyte abs 0.68 0.20 - 0.80 K/cumm [facility]) Eosinophil abs 0.09 0.00 - 0.50 K/cumm [facility] ([place]) Basophil abs 0.02 0.00 - 0.10 K/cumm [facility]) Neutrophil pct 72.3 % [facility] ([place] Comment: Interpretive [...] was last revised on 2017. Lymphocyte pct 20.0 % [facility] Comment: Interpretive Data Percent cell count reference ranges are not reported, since discordance with absolute values may lead to misinterpretation of CBC data. Current Interpretive Data was last revised on 2017. Monocyte pct 6.3 % [facility] ([place] Comment: Interpretive Data Percent cell count reference ranges are not reported, since discordance with absolute values may lead to misinterpretation of CBC data. Current Interpretive Data was last revised on 2017. Eosinophil pct 0.8 % [facility] ([place] Comment: Interpretive Data Percent cell count reference ranges are not reported, since discordance with absolute values may lead to misinterpretation of CBC data. Current Interpretive Data was last revised on 2017. Basophil pct 0.2 % [facility] ([place] Comment: Interpretive Data Percent cell count reference ranges are not reported, since discordance with absolute values may lead to misinterpretation of CBC data. Current Interpretive Data was last revised on 2017. Blood 01/17/2025 2:59 PM CDT 01/17/2025 3:11 PM CDT us Lauryn ARIZMENDI LAB BLOOD ORDERABLES Final Resu lt [facility] 1 [facility] [place] [address] * (ABNORMAL) Urinalysis reflex to microscopic and culture Urine (01/17/2025 2:59 PM CDT) Color, ur Yellow Yellow Clarity, ur Clear Clear [facility] ([place]) Specific gravity, ur 1.016 1.003 - 1.030 [facility] pH, urine 5.0 [facility] Comment: Interpretive Data U rine pH is affected by diet, medications, systemic acid-base disturbances, and renal tubular function. pH may affect urinary stone formation. For example, urine pH below 6.0 may help reduce the tendency for calcium phosphate stones and pH greater than 6.0 may reduce the tendency for uric acid stone formation. Source: [facility] Current Interpretive Data was last revised on 2017 Protein, ur ql Negative Negative [facility] Glucose, ur ql 4+(A) Negative [facility] Ketones, ur Negative Negative [facility] Bilirubin, ur Negative Negative [facility] Blood, ur Negative Negative [facility] Urobilinogen, ur <2.0 <2.0 mg/dL [facility] Nitrite, ur Negative Negative [facility] Leukocyte esterase, ur Negative Negative [facility] UA reflex comment Reflex conditions for microscopic UA and culture not met. [facility] Urine 01/17/2025 2:59 PM CDT 01/17/2025 3:11 PM CDT us Lauryn ARIZMENDI LAB MICROBIOLOGY - GENERAL REMY ESTRELLA Final Result [facility] ([place] [address] [facility] [place] [address] * (ABNORMAL) CBC with auto differential (01/17/2025 2:59 PM CDT) WBC 10.71(H) 3.80 - 9.90 K/cumm Hgb 13.9 11.9 - 15.5 g/dL [facility] Hct 43.4 35.6 - 45.5 % [facility] Plt 218 150 - 400 K/cumm [facility] MPV 10.1 9.1 - 12.3 fL [facility] RBC 4.75 3.90 - 5.20 M/cumm [facility] MCV 91.4 81.3 - 96.4 fL [facility] MCH 29.3 27.1 - 33.3 pg [facility] MCHC 32.0(L) 32.3 - 35.7 g/dL [facility] RDW CV 15.5(H) 11.1 - 14.9 % [facility] RDW SD 51.3(H) 35.7 - 48.1 fL [facility] NRBC abs 0.00 0.00 - 0.01 K/cumm [facility] ([place] Blood 01/17/2025 2:59 PM CDT 01/17/2025 3:11 PM CDT us Lauryn ARIZMENDI LAB BLOOD ORDERABLES Final Resu lt [facility] ([place] [address] [facility] [place] [address] * Comprehensive metabolic panel (01/17/2025 2:59 PM CDT) Sodium 138 135 - 145 mmol/L [facility] Potassium, pl 4.3 3.3 - 4.9 mmol/L [facility] Chloride 101 97 - 110 mmol/L [facility] CO2 24 22 - 32 mmol/L [facility] Anion gap 13 2 - 15 mmol/L [facility] BUN 11 6 - 25 mg/dL [facility]) Creatinine 1.00 0.60 - 1.10 mg/dL [facility] Glucose 102 70 - 199 mg/dL [facility] [...] interpretive data was last revised 2022. Calcium 10.1 8.5 - 10.3 mg/dL [facility] Bilirubin, total 0.4 0.1 - 1.2 mg/dL [facility] ([place]) Protein, pl 7.3 6.5 - 8.5 g/dL [facility] ([place]) Albumin 4.1 3.5 - 5.0 g/dL [facility] ([place]) Alk phos 96 40 - 130 Units/L [facility] [place]) ALT 25 7 - 45 Units/L [facility] [place] AST 23 10 - 45 Units/L [facility] ([place]) Comment:Hemolysis present. R esults may be affected. Blood 01/17/2025 2:59 PM CDT 01/17/2025 3:11 PM CDT us Lauryn ARIZMENDI LAB BLOOD ORDERABLES Final Resu lt Performing Organization Address [facility] Co de Phone Number [facility] 1 [facility] [place] [address] * (ABNORMAL) POCT glucose (11/07/2024 7:34 AM CDT) Glucose, POC 235(H) 70 - 199 mg/dL Blood 11/07/2024 7:34 AM CDT 11/07/2024 7:34 AM CDT Ruba Pratt MD LAB POCT ORDERABLES - DEVICE Final Result Performing Organization Address City/[facility]/ZIP Co de Phone Number [facility] ([place] 1 [facility] [place] [address] * (ABNORMAL) POCT glucose (11/07/2024 1:57 AM CDT) Glucose, POC 201(H) 70 - 199 mg/dL Blood 11/07/2024 1:57 AM CDT 11/07/2024 1:57 AM CDT Ruba Pratt MD LAB POCT ORDERABLES - DEVICE Final Result [facility] ([place] 1 [facility] [place] [address] * (ABNORMAL) POCT glucose (11/06/2024 7:34 PM CDT) Glucose, POC 282(H) 70 - 199 mg/dL Blood 11/06/2024 7:34 PM CDT 11/06/2024 7:34 PM CDT us Ruba Pratt MD LAB POCT ORDERABLES - DEVICE Final Result Performing Organization Address City/[facility]/ZIP Co de Phone Number [facility] ([place] 1 [facility] [place] [address] * (ABNORMAL) POCT glucose (11/06/2024 4:31 PM CDT) Glucose, POC 253(H) 70 - 199 mg/dL Blood 11/06/2024 4:31 PM CDT 11/06/2024 4:31 PM CDT uRba Pratt MD LAB POCT ORDERABLES - DEVICE Final Result Performing Organization Address City/[facility]/ZIP Co de Phone Number [facility] ([place] 1 [facility] [place] [address] * (ABNORMAL) POCT glucose (11/06/2024 11:12 AM CDT) Glucose, POC 214(H) 70 - 199 mg/dL Blood 11/06/2024 11:1 2 AM CDT 11/06/2024 11:12 AM CDT us Ruba Pratt MD LAB POCT ORDERABLES - DEVICE Final Result [facility] ([place] [address] [facility] [place] [address] * (ABNORMAL) POCT glucose (11/06/2024 7:36 AM CDT) Glucose, POC 229(H) 70 - 199 mg/dL Blood 11/06/2024 7:36 AM CDT 11/06/2024 7:36 AM CDT Ruba Pratt MD LAB POCT ORDERABLES - DEVICE Final Result [facility] ([place] [address] [facility] [place] [address] * (ABNORMAL) POCT glucose (11/06/2024 2:13 AM CDT) Glucose, POC 317(H) 70 - 199 mg/dL Blood 11/06/2024 2:13 AM CDT 11/06/2024 2:13 AM CDT Ruba Pratt MD LAB POCT ORDERABLES - DEVICE Final Result Performing Organization Address City/[facility]/ZIP Co de Phone Number [facility] ([place] 1 [facility] [place] [address] * (ABNORMAL) POCT glucose (11/05/2024 11:17 PM CDT) Glucose, POC 362(H) 70 - 199 mg/dL Blood 11/05/2024 11:1 7 PM CDT 11/05/2024 11:17 PM CDT Ruba Pratt MD LAB POCT ORDERABLES - DEVICE Final Result [facility] ([place] [address] [facility] [place] [address] * (ABNORMAL) POCT glucose (11/05/2024 8:08 PM CDT) Glucose, POC 338(H) 70 - 199 mg/dL Blood 11/05/2024 8:08 PM CDT 11/05/2024 8:08 PM CDT Ruba Pratt MD LAB POCT ORDERABLES - DEVICE Final Result [facility] ([place] 1 [facility] [place] [address] * (ABNORMAL) POCT glucose (11/05/2024 7:25 PM CDT) Glucose, POC 389(H) 70 - 199 mg/dL Blood 11/05/2024 7:25 PM CDT 11/05/2024 7:25 PM CDT Ruba Pratt MD LAB POCT ORDERABLES - DEVICE Final Result Performing Organization Address [facility] de Phone Number [facility] ([place]) 1 [place] [address] * Troponin T high-sensitivity 6-hour (11/05/2024 6:25 PM CDT) Trop T hs 8 <=14 ng/L [facility] ([place]) Comment: Interpretive Data For further hscTnT resources [...] ORDERABLES Tanika l Result Performing Organization Address City/[facility]/ZIP Co de Phone Number [facility] ([place] 1 [facility] [place] [address] * (ABNORMAL) POCT glucose (11/05/2024 5:22 PM CDT) [facility] Glucose, POC 247(H) 70 - 199 mg/dL Blood 11/05/2024 5:22 PM CDT 11/05/2024 5:22 PM CDT Ruba Pratt MD LAB POCT ORDERABLES - DEVICE Final Result Performing Organization Address City/[facility]/ZIP Co de Phone Number [facility] ([place] 1 [facility] [place] [address] * Troponin T high-sensitivity 4-hour (11/05/2024 4:52 PM CDT) [facility] Trop T hs 7 <=14 ng/L [facility] ([place]) Comment: Interpretive [...] BLOOD ORDERABLES Tanika l Result [facility] ([place] 1 [facility] [place] [address] * eGFR (11/05/2024 4:52 PM CDT) [facility] eGFR 81 >=60 mL/min/1. 73 m2 Comment: [...] Tanika ewing Result [facility] ([place] 1 [facility] Department [place] [address] * (ABNORMAL) CBC without differential (11/05/2024 4:52 [...] Tanika ewing Result [facility] ([place] 1 [facility] [place] [address] * (ABNORMAL) Comprehensive metabolic panel (11/05/2024 4:52 [...] ORDERABLES Tanika l Result Performing Organization Address City/[facility]/ZIP Co de Phone Number [facility] ([place] 1 [facility] [place] [address] * Troponin T high-sensitivity 2-hour (11/05/2024 3:08 [...] ORDERABLES Tanika l Result Performing Organization Address City/[facility]/ZIP Co de Phone Number [facility] ([place] 1 [facility] Department [place] [address] * Blood gas, venous (11/05/2024 2:24 PM CDT) pH, Venous 7.32 7.32 - 7.43 PCO2, Venous 49 40 - 50 mmHg [facility] ([place] PO2, Venous 86 mmHg [facility] ([place]) HCO3 Venous, Calculated 25 20 - 30 mmol/L [facility] BE, venous -1 mmol/L [facility] Comment: Interpretive Data No Reference Range Established Current Interpretive Data was last revised on 2017. Blood 11/05/2024 2:24 PM CDT 11/05/2024 2:30 PM CDT Kaley ARIZMENDI LAB BLOOD ORDERABLES Tanika l Result Performing Organization Address City/[facility]/ZIP Co de Phone Number [facility] ([place]) [address] [place] [address] [place] [address] * Influenza A/B, RSV, and COVID-19 PCR Nasopharyngeal (11/05/2024 1:12 PM CDT) COVID-19 RNA Negative Negative Influenza A RNA Negative Negative [facility] ([place]) Influenza B RNA Negative Negative [facility] ([place]) RSV RNA Negative Negative [facility] ([place]) Comment: Interpretive data: Testing performed by [facility]. This test is performed using the [employer] Xpert Xpress CoV-2/Flu/RSV plus assay. This is a multiplex, real- time reverse transcriptase PCR assay intended for the qualitative detection of nucleic acid from SARS-CoV-2, influenza A, influenza B, and respiratory syncytial virus. This assay has been cleared by the [place] Food and Drug administration. The performance characteristics have been verified by the [facility]. Results must be considered in the clinical context, and a negative result does not rule out infection. Interpretive Data last revised 2023 Nasopharyngeal 11/05/2024 1: 12 PM CDT 11/05/2024 1:14 PM CDT Narrative [facility] ([place] - 11/05/2024 1:52 PM CDT Is the Patient experiencing symptoms consistent with COVID?->Yes Kaley ARIZMENDI LAB MICROBIOLOGY - GENERA L ORDERABLES Final Result Performing Organization Address City/[facility]/ZIP Co de Phone Number [facility] ([place] 1 [facility] [place] [address] * XR Chest 1 Vw Portable (11/05/2024 [...] Carlos Grossman D.O. PS: PS Report ID: [id number] Reading Location: [id number] Procedure Note Carlos Grossman, DO - 11/05/2024 [...] Carlos Grossman D.O. PS: PS Report ID: [id number] Reading Location: [id number] Kaley ARIZMENDI IMG XR PROCEDURES Final R esult * Troponin T high-sensitivity series (baseline, 2hr, 4hr, 6hr) (11/05/2024 12:59 PM CDT) Trop T hs 10 <=14 ng/L [facility] ([place]) Comment: Interpretive Data For further hscTnT resources including the diagnostic algorithm and an aid in interpretation, copy and paste this link: https://nrl.testcatalog.org/show/hsTrop Current Interpretive Data last revised 2020. Blood 11/05/2024 12:5 9 PM CDT 11/05/2024 1:09 PM CDT Kaley ARIZMENDI LAB BLOOD ORDERABLES Tanika l Result [facility] ([place] 1 [facility] [place] [address] * eGFR (11/05/2024 12:59 PM CDT) eGFR [...] LAB BLOOD ORDERABLES Tanika l Result [facility] ([place] 1 [facility] [place] [address] * (ABNORMAL) Differential, auto (11/05/2024 12:59 PM CDT) Neutrophil abs 7.70(H) 1.50 - 6.50 K/cumm Imm gran abs 0.04 0.00 - 0.10 K/cumm [facility] ([place]) Lymphocyte abs 1.80 0.80 - 3.30 K/cumm [facility] ([place]) Monocyte abs 0.27 0.20 - 0.80 K/cumm [facility] ([place]) Eosinophil abs 0.01 0.00 - 0.50 K/cumm [facility] ([place]) Basophil abs 0.01 0.00 - 0.10 K/cumm [facility] ([place]) Neutrophil pct 78.4 % [facility] ([place] Comment: Interpretive Data Percent cell count reference ranges are not reported, since discordance with absolute values may lead to misinterpretation of CBC data. Current Interpretive Data was last revised on 2017. Imm gran pct 0.4 % [facility] ([place] Comment: Interpretive Data Percent cell count reference [...] 2017. Eosinophil pct 0.1 % [facility] ([place] Comment: Interpretive Data Percent cell count reference ranges are not reported, since discordance with absolute values may lead to misinterpretation of CBC data. Current Interpretive Data was last revised on 2017. Basophil pct 0.1 % [facility] (ANISH) Comment: Interpretive Data Percent cell count reference ranges are not reported, since discordance with absolute values may lead to misinterpretation of CBC data. Current Interpretive Data was last revised on 2017. Blood 11/05/2024 12:5 9 PM CDT 11/05/2024 1:09 PM CDT us Kaley ARIZMENDI LAB BLOOD ORDERABLES Tanika ewing Result [facility] C[facility]LL[facility] ([place]) 1 [facility] [place] [address] * (ABNORMAL) Pro B-type natriuretic peptide (11/05/2024 [...] Tanika ewing Result [facility] ([place]) 1 [facility] [place] [address] * (ABNORMAL) CBC with auto differential (11/05/2024 [...] Tanika ewing Result [facility] ([place]) 1 [facility] [place] [address] * Comprehensive metabolic panel (11/05/2024 12:59 PM [...] (ANISH) AST 31 10 - 45 Units/L [facility] (ANISH) Blood 11/05/2024 12:5 9 PM CDT 11/05/2024 1:09 PM CDT Kaley ARIZMENDI LAB BLOOD ORDERABLES Tanika l Result Performing Organization Address City/[facility]/ZIP Co de Phone Number [facility] CUELLAR ([place]) 1 [facility] Department [place] [address] * ECG 12 lead (11/05/2024 12:54 PM CDT) 11/05/2024 12:5 4 PM CDT Narrative [facility] - 11/05/2024 1:57 PM CDT Vent Rate: 65 bpm RR Interval: 921 msec CO Interval: 152 msec QRS Duration: 93 msec QT Interval: 394 msec QTC Interval: 405 msec P-R-T Yawkey: 60 - 50 - 52 degrees IMPRESSION: SINUS RHYTHM NORMAL ECG NO CHANGE FROM PREVIOUS TRACING NOTED Electronically Signed By: Mainor Lopez MD Brenda Mast MD ECG ORDERABLES Final Res ult Performing Organization Address [facility] de Phone Number [facility] [employer] [facility] * ECG 12 lead (11/03/2024 11:55 AM CDT) 11/03/2024 11:5 5 AM CDT Narrative [facility] - 11/04/2024 6:49 AM CDT Vent Rate: 75 bpm RR Interval: 796 msec CO Interval: 161 msec QRS Duration: 84 msec QT Interval: 380 msec QTC Interval: 409 msec P-R-T Yawkey: 56 - 53 - 55 degrees IMPRESSION: SINUS RHYTHM LOW QRS VOLTAGE IN PRECORDIAL LEADS [QRS DEFLECTION < 1.0 mV IN CHEST LEADS] BORDERLINE ECG NO CHANGE FROM PREVIOUS TRACING NOTED Electronically Signed By: Mainor Lopez MD us Imer Chang MD ECG ORDERABLES Final Result Performing Organization Address [facility] Co de Phone Number [facility] * XR CHEST 1 VIEW PORTABLE (11/03/2024 [...] by Rubio Gallego M.D. CH: Report ID: [id number] Reading Location: [id number] Procedure Note Rubio Gallego Jr., MD - [...] by Rubio Gallego M.D. CH: Report ID: [id number] Reading Location: [id number] Imer Chang MD IMG XR PROCEDURES Final Resu lt * Influenza A/B, RSV, and COVID-19 PCR Nasopharyngeal (11/03/2024 11:47 AM CDT) Pathologist [facility] [place] COVID-19 RNA Negative Negative Influenza A RNA Negative Negative [facility] ([place]ISH) Influenza B RNA Negative Negative [facility] ([place]ISH) RSV RNA Negative Negative [facility] ([place]) Comment: Interpretive data: Testing performed by [facility]. This test is performed using the [employer] Xpert Xpress CoV-2/Flu/RSV plus assay. This is a multiplex, real- time reverse transcriptase PCR assay intended for the qualitative detection of nucleic acid from SARS-CoV-2, influenza A, influenza B, and respiratory syncytial virus. This assay has been cleared by the [place] Food and Drug administration. The performance characteristics have been verified by the [facility]. Results must be considered in the clinical context, and a negative result does not rule out infection. Interpretive Data last revised 2023 Nasopharyngeal 11/03/2024 11 :47 AM CDT 11/03/2024 11:52 AM CDT Narrative [facility] ([place]) - 11/03/2024 12:40 PM CDT Is the Patient experiencing symptoms consistent with COVID?->Yes Imer Chang MD LAB MICROBIOLOGY - GENERAL O RDERABLES Final Result [facility] ([place]) 1 [facility] [place] [address] * Troponin T high-sensitivity series (baseline, 2hr, 4hr, 6hr) (11/03/2024 11:45 AM CDT) Pathologist [facility] Trop T hs 9 <=14 ng/L Comment: Interpretive Data For further hscTnT resources including the diagnostic algorithm and an aid in interpretation, copy and paste this link: https://nrl.testcatalog.org/show/hsTrop Current Interpretive Data last revised 2020. Blood 11/03/2024 11:4 5 AM CDT 11/03/2024 11:51 AM CDT us Imer Chang MD LAB BLOOD ORDERABLES Final R esult [facility] CUELL[facility] [place]) 1 [facility] [place] [address] * Sepsis Lactate w/ Reflex (11/03/2024 11:45 AM CDT) Sepsis Lactate 1.7 0.7 - 2.0 mmol/L Blood 11/03/2024 11:4 5 AM CDT 11/03/2024 11:48 AM CDT Imer Chang MD LAB BLOOD ORDERABLES Final R esult Performing Organization Address City/[facility] Co de Phone Number [facility] C[facility] ([place]) 1 [facility] [place] [address] * eGFR (11/03/2024 11:45 AM CDT) eGFR [...] BLOOD ORDERABLES Final R esult [facility] ([place]) 1 [facility] [place] [address] * Differential, auto (11/03/2024 11:45 AM CDT) Neutrophil abs 3.34 1.50 - 6.50 K/cumm Imm gran abs 0.01 0.00 - 0.10 K/cumm [facility] ([place]) Lymphocyte abs 1.36 0.80 - 3.30 K/cumm [facility] ([place]) Monocyte abs 0.60 0.20 - 0.80 K/cumm [facility] ([place]) Eosinophil abs 0.06 0.00 - 0.50 K/cumm [facility] ([place]) Basophil abs 0.01 0.00 - 0.10 K/cumm [facility] ([place]) Neutrophil pct 62.0 % [facility] ([place]) Comment: Interpretive Data Percent cell count reference ranges are not reported, since discordance with absolute values may lead to misinterpretation of CBC data. Current Interpretive Data was last revised on 2017. Imm gran pct 0.2 % [facility] ([place]) Comment: Interpretive Data Percent cell count reference ranges are not reported, since discordance with absolute values may lead to misinterpretation of CBC data. Current Interpretive Data was last revised on 2017. Lymphocyte pct 25.3 % [facility] ([place]) Comment: Interpretive Data Percent cell count reference ranges are not reported, since discordance with absolute values may lead to misinterpretation of CBC data. Current Interpretive Data was last revised on 2017. Monocyte pct 11.2 % [facility] ([place]) Comment: Interpretive Data Percent cell count reference ranges are not reported, since discordance with absolute values may lead to misinterpretation of CBC data. Current Interpretive Data was last revised on 2017. Eosinophil pct 1.1 % [facility] ([place]) Comment: Interpretive Data Percent cell count reference ranges are not reported, since discordance with absolute values may lead to misinterpretation of CBC data. Current Interpretive Data was last revised on 2017. Basophil pct 0.2 % [facility] ([place]ISH) Comment: Interpretive Data Percent cell count reference ranges are not reported, since discordance with absolute values may lead to misinterpretation of CBC data. Current Interpretive Data was last revised on 2017. Blood 11/03/2024 11:4 5 AM CDT 11/03/2024 11:48 AM CDT us Imer Chang MD LAB BLOOD ORDERABLES Final R esult [facility] ([place]) 1 [facility] [place] [address] * Pro B-type natriuretic peptide (11/03/2024 11:45 [...] Final R esult [facility] ([place]) 1 [facility] [place] [address] * (ABNORMAL) CBC with auto differential (11/03/2024 [...] Final R esult Performing Organization Address [facility] de Phone Number [facility] CUELLAR ([place]) 1 [facility] [place] [address] * (ABNORMAL) Blood gas, venous (11/03/2024 11:45 [...] Final R esult Performing Organization Address [facility] de Phone Number [facility]IN CUELLAR ([place]) 1 [facility] [place] [address] * Comprehensive metabolic panel (11/03/2024 11:45 AM [...] Final R esult [facility] CUELL[facility] ([place]) 1 [facility] Department of Laboratories [place], [place] [id number] * (ABNORMAL) POCT lipid panel (10/02/2024 10:59 AM CDT) [facility] Signature Cholesterol, POC 121 <200 MG/DL HDL, POC [...] * POCT hemoglobin A1c (03/16/2020 2:10 PM MASTER BAKER) Hemoglobin A1C, POC 7.1 Blood specimen (specimen) 03/16/2020 2:10 PM MASTER BAKER Abena Ronquillo MD POINT OF CARE TEST ORDERABLES Final Result * DIABETES EYE EXAM (02/06/2019) Diabetic Eye Exam Unknown Historical Provider MD HEALTH MAINTENANCE Final Result from Last 3 Months or Most Recently Relevant to Health Maintenance Insurance [facility] Address: [facility] [address] [place] [address] [facility] Address: [address] [address] [place] [address] [facility] ADVANTAGE [facility] Address: [address] [address] Advance Directives For more information, please contact: [phone] * Full Code (Latest Code Status on File) Date Activated Date Inactivated Comments 11/05/2024 4:12 PM 11/07/2024 3:15 PM * Full Code Date Activated Date Inactivated Comments 10/10/2020 6:56 PM 10/12/2020 5:57 PM * Full Code Date Activated Date Inactivated Comments 11/30/2018 7:41 AM 11/30/2018 1:32 PM * Full Code Date Activated Date Inactivated Comments 04/06/2017 3:48 PM 04/07/2017 2:06 PM Care Teams Strip Mill Operator Relationship Specialty Start Date End Date Beatriz Cuevas NP [address] [place] [id number] PCP - General Nurse Practitioner 10/02/24 Karan Ngo MD [facility] [place] [address] Consulting Physician Cardiology 11/02/18
== END 2025-01-24 13:59 | disposition home or self-care (01) ==
LOC: ANHFOHIMG 14:00
PROVIDERS: PCP Nurse Practitioner Adult Health; Visit Provider Nurse Practitioner Adult Health
DX: Z12.31 Encounter for screening mammogram for malignant neoplasm of breast (principal)
CPT/HCPCS: 77063; 77067

== ENCOUNTER 2025-02-14 07:59 | Outpatient (CLI) | payer MEDICARE, SELFPAY ==
[2025-02-14 08:00] VITALS: PULSE 72; O2SAT 96
[2025-02-14 08:20] VITALS: PULSE 81; O2SAT 95
[2025-02-14 08:30] VITALS: PULSE 72; O2SAT 97
--- NOTE | 2025-02-19 14:10 | HOMEO2EVAL ---
Evaluation was performed at [facility]
--- NOTE | 2025-02-19 14:13 | HOMEO2EVAL ---
Evaluation was performed at [facility]
--- NOTE | 2025-02-19 14:56 | HOMEO2EVAL ---
Evaluation was performed at [facility]
--- NOTE | 2025-02-19 15:07 | HOMEO2EVAL ---
Evaluation was performed at [facility]
== END 2025-02-14 08:00 | disposition home or self-care (01) ==
LOC: ANHPFT 08:04
PROVIDERS: PCP Nurse Practitioner Adult Health; Visit Provider Physician Assistant
DX: J44.0 Chronic obstructive pulmonary disease with (acute) lower respiratory infection (principal)
CPT/HCPCS: 94618

== ENCOUNTER 2025-03-02 09:47 | Outpatient (CLI) | payer MEDICARE, SELFPAY ==
--- NOTE | ~2025-03-02 | MR_ITS ---
EXAMINATION: MR abdomen wo/w con DATE: 03/02/2025 11:09 INDICATION: Cyst of pancreas. TECHNIQUE: Magnetic resonance imaging (MRI) of the abdomen was performed without and with 17 mL MultiHance intravenous contrast. COMPARISON: Abdomen MRI 07/17/2024 FINDINGS: There is diffuse hepatic steatosis. The gallbladder is absent. The spleen and adrenal glands are normal. There is cortical thinning of the kidneys. There are multiple dilated side chains of the pancreatic duct. There is a cystic lesion of the pancreas communicating with the pancreatic duct measuring 9 mm. The pancreatic duct measures up to 4 mm in the body of the pancreas. The pancreatic duct is normal in caliber. There are no dilated loops of bowel. There are no pathologically enlarged lymph nodes. There is no free intraperitoneal fluid. There is a 4.5 cm fusiform aneurysm of infrarenal aorta. IMPRESSION: 1. Stable low-risk 9 mm cystic lesion of the pancreas. Consider abdomen MRI without and with contrast in 2 years. 2. Stable 4.5 cm fusiform aneurysm of infrarenal aorta. Reviewed, dictated and finalized at location E. RAMS DIRECTOR IMPRESSION: 1. Stable low-risk 9 mm cystic lesion of the pancreas. Consider abdomen MRI wit hout and with contrast in 2 years. 2. Stable 4.5 cm fusiform aneurysm of infrarenal aorta.
--- OUTSIDE RECORDS SUMMARY | 2025-03-02 09:53 | XMS_ITS | Clinical Summary ---
Author Organization [facility] Address [address] [facility] [place] [address] Phone Care Team Providers Care Risk Prevention Engineer Name Role Phone Joseph Sweet MD Primary Care Provider [phone] Kenneth Ward DPM Unavailable [phone] Hermann Olivia DO Unavailable [phone] Naida Odonnell MD Unavailable Allergies Active [...] patient's age to complete this topic Insurance [facility] MEDICARE Care Teams Risk Prevention Engineer Relationship Specialty Start Date End Date Joseph Sweet MD [address] [place] [id number] PCP - General Family Medicine 06/12/15 Kenneth Ward DPM [address] [place] [address] Podiatry 06/12/15 Hermann Olivia [place] [address] Gastroenterology 02/02/16 Naida Odonnell MD [address] [place] [address] Family Medicine 02/02/16
--- OUTSIDE RECORDS SUMMARY | 2025-03-02 09:53 | XMS_ITS | Data Portability ---
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 Plan of Treatment Reminders Order Date Submit Date Provider Last Modified By Organization Details Last Modified Time Details Appointments None recorded. Lab cortisol, am, serum 2022 023 [facility], [address], [place], [address], 3 15:23:09 dexamethaso ne, serum 2022 023 [facility], [address], [place], [address], 3 15:23:07 microalbumi n/creatinin e, mass ratio, urine 2022 023 [facility], [address], [place], [address], 3 15:23:07 CMP, serum or plasma 2022 023 [facility], [address], [place], [address], 3 15:23:06 HbA1c (hemoglobin A1c), blood 2022 023 [facility], [address], [place], [address], 3 15:23:10 lipid panel, serum 2022 023 [facility], [address], [place], [address], 3 15:23:05 TSH, serum or plasma 2022 023 [facility], [address], [place], [address], 3 15:23:08 T4, free, serum 2022 023 [facility], [address], [place], [address], 3 15:23:08 Referral None recorded. Procedures None recorded. Surgeries None recorded. Imaging bone density 2022 023 [facility] ([facility]), [address] [place] [address], [address], 3 18:06:42 Medication Orders dexamethaso ne 1 mg tablet 2022 023 [id number], [address] [place], [address], 3 15:14:07 Patient TargetsNo targets recorded. Patient InstructionsNo instructions recorded. Reason for Referral None Reported. Results Created Date Observation Date Name Description Value Unit Range Abnormal Flag Note LastModifiedBy Organization Detail LastModifiedTime 06/09/19 22 06/10/2021 HEMOG LOBIN A1C hemoglobin A1C 7.6 %_of_ [...] Curre ntly, no conse nsus exist s regar juice use of hemog lobin A1c for diagn osis of diabe abby for child adebayo. Not Available [address], [address], 06/10/2021 12:18:35 06/09/19 22 06/10/2021 TSH+F REE T4 TSH 2.16 mIU/L 0.40-4 .50 normal Not Available [address], [address], 06/10/2021 12:18:34 06/09/19 22 06/10/2021 TSH+F REE T4 T4, free 1.2 NG/dL 0.8-1. 8 normal Not Available [address] [address] [place], [address], 06/10/2021 12:18:34 06/09/19 22 06/10/2021 ALBUM IN, RANDO M URINE W/CRE ATINI NE creatinine, random urine 74 mg/dL 20-275 normal Not Available [address], [address], 06/10/2021 12:18:33 06/09/19 22 06/10/2021 ALBUM IN, RANDO M URINE W/CRE ATINI NE albumin, urine 0.2 mg/dL see note: normal Refer ence Range : Refer ence Range Not estab lishe d Not Available [address] [place], [address], 06/10/2021 12:18:33 06/09/19 22 06/10/2021 ALBUM IN, [...] a diagn ostic categ ory. Not Available [facility] [address] [address] [place], [address], 06/10/2021 12:18:33 06/09/19 22 06/10/2021 COMPR EHENS ABBY METAB OLIC PANEL glucose 166 mg/dL 65-99 high Fasti ng refer ence inter aiden For someo ne witho ut known diabe abby, a gluco se value >125 mg/dL indic ates that they may have diabe abby and this shoul d be confi rmed with a follo w-up test. Not Available [facility] [address] [address] [place], [address], 06/10/2021 12:18:32 06/09/19 22 06/10/2021 COMPR EHENS ABBY METAB OLIC PANEL urea nitrogen (BUN) 17 mg/dL 7-25 normal Not Available [facility] [address] [address] [place], [address], 06/10/2021 12:18:32 06/09/19 22 06/10/2021 COMPR EHENS ABBY METAB OLIC PANEL creatinine 1.14 mg/dL 0.50-0 .99 high For patie nts >49 years of age, the refer ence limit for Creat inine is appro ximat jose 13% highe r for peopl e ident ified as Afric an-Am jailyn n. Not Available [facility] [address] [address] [place], [address], 06/10/2021 12:18:32 06/09/19 22 06/10/2021 COMPR EHENS ABBY METAB OLIC PANEL eGFR non-afr. citizen of [place] 51 mL/mi n/1.7 3m2 > or = 60 low Not Available [address], [address], 06/10/2021 12:18:32 06/09/19 22 06/10/2021 COMPR EHENS ABBY METAB OLIC PANEL eGFR 59 mL/mi n/1.7 3m2 > or = 60 low Not Available [address], [address], 06/10/2021 12:18:32 06/09/19 22 06/10/2021 COMPR EHENS ABBY METAB OLIC PANEL BUN/creatini ne ratio 15 (calc ) 6-22 normal Not Available [address], [address], 06/10/2021 12:18:32 06/09/19 22 06/10/2021 COMPR EHENS ABBY METAB OLIC PANEL sodium 139 mmol/ L 135-14 6 normal Not Available [address], [address], 06/10/2021 12:18:32 06/09/19 22 06/10/2021 COMPR EHENS ABBY METAB OLIC PANEL potassium 4.4 mmol/ L 3.5-5. 3 normal Not Available [address], [address], 06/10/2021 12:18:32 06/09/19 22 06/10/2021 COMPR EHENS ABBY METAB OLIC PANEL chloride 103 mmol/ L 98-110 normal Not Available [facility] [address], [address], 06/10/2021 12:18:32 06/09/19 22 06/10/2021 COMPR EHENS ABBY METAB OLIC PANEL carbon dioxide 25 mmol/ L 20-32 normal Not Available [address], [address], 06/10/2021 12:18:32 06/09/19 22 06/10/2021 COMPR EHENS ABBY METAB OLIC PANEL calcium 9.7 mg/dL 8.6-10 .4 normal Not Available [address], [address], 06/10/2021 12:18:32 06/09/19 22 06/10/2021 COMPR EHENS ABBY METAB OLIC PANEL protein, total 7.3 g/dL 6.1-8. 1 normal Not Available [address], [address], 06/10/2021 12:18:32 06/09/19 22 06/10/2021 COMPR EHENS ABBY METAB OLIC PANEL albumin 4.7 g/dL 3.6-5. 1 normal Not Available [address], [address], 06/10/2021 12:18:32 06/09/19 22 06/10/2021 COMPR EHENS ABBY METAB OLIC PANEL globulin 2.6 g/dL_ (calc ) 1.9-3. 7 normal Not Available [address], [address], 06/10/2021 12:18:32 06/09/19 22 06/10/2021 COMPR EHENS ABBY METAB OLIC PANEL albumin/glob ulin ratio 1.8 (calc ) 1.0-2. 5 normal Not Available [address], [address], 06/10/2021 12:18:32 06/09/19 22 06/10/2021 COMPR EHENS ABBY METAB OLIC PANEL bilirubin, total 0.4 mg/dL 0.2-1. 2 normal Not Available [facility] [address] [address], [place], [address], 06/10/2021 12:18:32 06/09/19 22 06/10/2021 COMPR EHENS ABBY METAB OLIC PANEL alkaline phosphatase 95 U/L 37-153 normal Not Available [address], [address], 06/10/2021 12:18:32 06/09/19 22 06/10/2021 COMPR EHENS ABBY METAB OLIC PANEL AST 19 U/L 10-35 normal Not Available [address], [address], 06/10/2021 12:18:32 06/09/19 22 06/10/2021 COMPR EHENS ABBY METAB OLIC PANEL ALT 22 U/L 6-29 normal Not Available [address], [address], 06/10/2021 12:18:32 06/09/19 22 06/10/2021 LIPID PANEL , STAND JOSE ENRIQUE cholesterol, total 215 mg/dL <200 high Not Available [address], [address], 06/10/2021 12:18:32 06/09/19 22 06/10/2021 LIPID PANEL , STAND JOSE ENRIQUE HDL cholesterol 51 mg/dL > or = 50 normal Not Available [address], [address], 06/10/2021 12:18:32 06/09/19 22 06/10/2021 LIPID PANEL , STAND JOSE ENRIQUE triglyceride s 223 mg/dL <150 high If a non-f astin g speci men was colle cted, consi dheeraj repea t trigl yceri de testi ng on a fasti ng speci men if clini sam indic ated. Abhishek amezquita et al. J. of Clin. Lipid ol. 2015; 9:129 -169. Not Available [facility] [address] [place], [address], 06/10/2021 12:18:32 06/09/19 22 06/10/2021 LIPID PANEL [...] lated using the Dee n-Hop kins calcu latludwig n, which is a valid ated novel marcelao d ronaldi juice murillo r accur acy than the Fried reina equat ion in the estim ation of LDL-C . Dee cruz SS et al. FREDDY. 2013; 310(1 9): 2061- 2068 (http ://ed ucati on.YapStone tejasTemnos. com/f aq/FA Q164) Not Available [facility] [address] [address], [place], [address], 06/10/2021 12:18:32 06/09/19 22 06/10/2021 LIPID PANEL , STAND JOSE ENRIQUE chol/HDLC ratio 4.2 (calc ) <5.0 normal Not Available [facility] [address] [place], [address], 06/10/2021 12:18:32 06/09/19 22 06/10/2021 LIPID PANEL , STAND JOSE ENRIQUE non HDL cholesterol 164 mg/dL _(roxie c) <130 high For patie nts with diabe abby plus 1 major ASCVD risk facto r, treat ing to a non-H DL-C goal of <100 mg/dL (LDL- C of <70 mg/dL ) is puneet winston c optio n. Not Available [facility] [address] [place], [address], 06/10/2021 12:18:32 10/29/19 22 10/29/2021 HEMOG LOBIN [...] Curre ntly, no conse nsus exist s regar ding use of hemog lobin A1c for diagn osis of diabe abby for child adebayo. Not Available [address], [address], 10/29/2021 12:12:32 10/29/19 22 10/29/2021 TSH+F REE T4 TSH 1.43 mIU/L 0.40-4 .50 normal Not Available [address], [address], 10/29/2021 12:12:32 10/29/19 22 10/29/2021 TSH+F REE T4 T4, free 0.9 NG/dL 0.8-1. 8 normal Not Available [address], [address], 10/29/2021 12:12:32 10/29/19 22 10/29/2021 ALBUM IN, RANDO M URINE W/CRE ATINI NE creatinine, random urine 79 mg/dL 20-275 normal Not Available [address], [address], 10/29/2021 12:12:31 10/29/19 22 10/29/2021 ALBUM IN, RANDO M URINE W/CRE ATINI NE albumin, urine 1.1 mg/dL see note: normal Refer ence Range : Refer ence Range Not estab lishe d Not Available [address], [address], 10/29/2021 12:12:31 10/29/19 22 10/29/2021 ALBUM IN, [...] a diagn ostic categ ory. Not Available [address], [address], 10/29/2021 12:12:31 10/29/19 22 10/29/2021 COMPR EHENS ABBY METAB OLIC PANEL glucose 87 mg/dL 65-99 normal Fasti ng refer ence inter aiden Not Available [address], [address], 10/29/2021 12:12:31 10/29/19 22 10/29/2021 COMPR EHENS ABBY METAB OLIC PANEL urea nitrogen (BUN) 9 mg/dL 7-25 normal Not Available [facility] [address], [address], 10/29/2021 12:12:31 10/29/19 22 10/29/2021 COMPR EHENS ABBY METAB OLIC PANEL creatinine 0.91 mg/dL 0.50-0 .99 normal For patie nts >49 years of age, the refer ence limit for Creat inine is appro ramos garcia 13% highe r for peopl e ident ified as Afric an-Am jailyn n. Not Available [address], [address], 10/29/2021 12:12:31 10/29/19 22 10/29/2021 COMPR EHENS ABBY METAB OLIC PANEL eGFR non-afr. citizen of [place] 67 mL/mi n/1.7 3m2 > or = 60 normal Not Available [address], [address], 10/29/2021 12:12:31 10/29/19 22 10/29/2021 COMPR EHENS ABBY METAB OLIC PANEL eGFR 77 mL/mi n/1.7 3m2 > or = 60 normal Not Available [address], [address], 10/29/2021 12:12:31 10/29/19 22 10/29/2021 COMPR EHENS ABBY METAB OLIC PANEL BUN/creatini ne ratio not applic able (calc ) 6-22 Not Available [address], [address], 10/29/2021 12:12:31 10/29/19 22 10/29/2021 COMPR EHENS ABYB METAB OLIC PANEL sodium 143 mmol/ L 135-14 6 normal Not Available [address], [address], 10/29/2021 12:12:31 10/29/19 22 10/29/2021 COMPR EHENS ABBY METAB OLIC PANEL potassium 4.3 mmol/ L 3.5-5. 3 normal Not Available [address], [address], 10/29/2021 12:12:31 10/29/19 22 10/29/2021 COMPR EHENS ABBY METAB OLIC PANEL chloride 105 mmol/ L 98-110 normal Not Available [facility] [address] [address], [place], [address], 10/29/2021 12:12:31 10/29/19 22 10/29/2021 COMPR EHENS ABBY METAB OLIC PANEL carbon dioxide 31 mmol/ L 20-32 normal Not Available [address], [address], 10/29/2021 12:12:31 10/29/19 22 10/29/2021 COMPR EHENS ABBY METAB OLIC PANEL calcium 9.6 mg/dL 8.6-10 .4 normal Not Available [address], [address], 10/29/2021 12:12:31 10/29/19 22 10/29/2021 COMPR EHENS ABBY METAB OLIC PANEL protein, total 6.8 g/dL 6.1-8. 1 normal Not Available [address], [address], 10/29/2021 12:12:31 10/29/19 22 10/29/2021 COMPR EHENS ABBY METAB OLIC PANEL albumin 4.2 g/dL 3.6-5. 1 normal Not Available [address], [address], 10/29/2021 12:12:31 10/29/19 22 10/29/2021 COMPR EHENS ABBY METAB OLIC PANEL globulin 2.6 g/dL_ (calc ) 1.9-3. 7 normal Not Available [address], [address], 10/29/2021 12:12:31 10/29/19 22 10/29/2021 COMPR EHENS ABBY METAB OLIC PANEL albumin/glob ulin ratio 1.6 (calc ) 1.0-2. 5 normal Not Available [address], [address], 10/29/2021 12:12:31 10/29/19 22 10/29/2021 COMPR EHENS ABBY METAB OLIC PANEL bilirubin, total 0.5 mg/dL 0.2-1. 2 normal Not Available [address], [address], 10/29/2021 12:12:31 10/29/19 22 10/29/2021 COMPR EHENS ABBY METAB OLIC PANEL alkaline phosphatase 99 U/L 37-153 normal Not Available [address], [address], 10/29/2021 12:12:31 10/29/19 22 10/29/2021 COMPR EHENS ABBY METAB OLIC PANEL AST 18 U/L 10-35 normal Not Available [address], [address], 10/29/2021 12:12:31 10/29/19 22 10/29/2021 COMPR EHENS ABBY METAB OLIC PANEL ALT 15 U/L 6-29 normal Not Available [address], [address], 10/29/2021 12:12:31 10/29/19 22 10/29/2021 LIPID PANEL , STAND JOSE ENRIQUE cholesterol, total 160 mg/dL <200 normal Not Available [address], [address], 10/29/2021 12:12:30 10/29/19 22 10/29/2021 LIPID PANEL , STAND JOSE ENRIQUE HDL cholesterol 49 mg/dL > or = 50 low Not Available [address], [address], 10/29/2021 12:12:30 10/29/19 22 10/29/2021 LIPID PANEL , STAND JOSE ENRIQUE triglyceride s 266 mg/dL <150 high If a non-f astin g speci men was colle cted, consi dheeraj repea t trigl yceri de testi ng on a fasti ng speci men if clini sam indic ated. Abhishek amezquita et al. J. of Clin. Lipid ol. 2015; 9:129 -169. Not Available [facility] [address] [place], [address], 10/29/2021 12:12:30 10/29/19 22 10/29/2021 LIPID PANEL [...] is a valid ated novel marcelao georgina provi juice lidia r accur acy than the Fried reina equat ion in the estim ation of LDL-C . Dee cruz SS et al. FREDDY. 2013; 310(1 9): 2061- 2068 (http ://ed ucati on.Qu estTemnos. com/f aq/FA Q164) Not Available [facility] [address] [address] , [place], [address], 10/29/2021 12:12:30 10/29/19 22 10/29/2021 LIPID PANEL , STAND JOSE ENRIQUE chol/HDLC ratio 3.3 (calc ) <5.0 normal Not Available [facility] [address] [place], [address], 10/29/2021 12:12:30 10/29/19 22 10/29/2021 LIPID PANEL , STAND JOSE ENRIQUE non HDL cholesterol 111 mg/dL _(roxie c) <130 normal For patie nts with diabe abby plus 1 major ASCVD risk facto r, treat ing to a non-H DL-C goal of <100 mg/dL (LDL- C of <70 mg/dL ) is consi dered a thera peuti c optio n. Not Available [facility] [address] [address], [place], [address], 10/29/2021 12:12:30 02/26/2002/26/2022 HEMOG LOBIN A1C hemoglobin [...] diabe abby for child adebayo. Not Available [address], [address], 02/26/2022 15:45:07 02/26/20 22 02/26/2022 TSH TSH 3.04 mIU/L 0.40-4 .50 normal Not Available [facility] [address], [address], 02/26/2022 15:45:07 02/26/20 22 02/26/2022 T4, FREE T4, free 1.1 NG/dL 0.8-1. 8 normal Not Available [facility] [address], [address], 02/26/2022 15:45:06 02/26/20 22 02/26/2022 ALBUM IN, RANDO M URINE W/CRE ATINI NE creatinine, random urine 67 mg/dL 20-275 normal Not Available [address], [address], 02/26/2022 15:45:06 02/26/20 22 02/26/2022 ALBUM IN, RANDO M URINE W/CRE ATINI NE albumin, urine 0.2 mg/dL see note: normal Refer ence Range : Refer ence Range Not estab lishe d Not Available [facility] [address] [address] [address] , [place], [address], 02/26/2022 15:45:06 02/26/20 22 02/26/2022 ALBUM IN, [...] a diagn ostic categ ory. Not Available [facility] [address] [address] [address] , [place], [address], 02/26/2022 15:45:06 02/26/20 22 02/26/2022 COMPR EHENS ABBY METAB OLIC PANEL glucose 121 mg/dL 65-99 high Fasti ng refer ence inter aiden For someo ne witho ut known diabe abby, a gluco se value betwe en 100 and 125 mg/dL is consi stent with predi abete s and shoul d be confi rmed with a follo w-up test. Not Available [facility] [address] [place], [address], 02/26/2022 15:45:05 02/26/20 22 02/26/2022 COMPR EHENS ABBY METAB OLIC PANEL urea nitrogen (BUN) 12 mg/dL 7-25 normal Not Available [address], [address], 02/26/2022 15:45:05 02/26/20 22 02/26/2022 COMPR EHENS ABBY METAB OLIC PANEL creatinine 0.83 mg/dL 0.50-1 .05 normal Not Available [address], [address], 02/26/2022 15:45:05 02/26/20 22 02/26/2022 COMPR EHENS [...] kdoqi /gfr% 5Fcal culat or Not Available [address], [address], 02/26/2022 15:45:05 02/26/20 22 02/26/2022 COMPR EHENS ABBY METAB OLIC PANEL BUN/creatini ne ratio not applic able (calc ) 6-22 Not Available [address], [address], 02/26/2022 15:45:05 02/26/20 22 02/26/2022 COMPR EHENS ABBY METAB OLIC PANEL sodium 139 mmol/ L 135-14 6 normal Not Available [facility] [address], [address], 02/26/2022 15:45:05 02/26/20 22 02/26/2022 COMPR EHENS ABBY METAB OLIC PANEL potassium 4.5 mmol/ L 3.5-5. 3 normal Not Available [address], [address], 02/26/2022 15:45:05 02/26/20 22 02/26/2022 COMPR EHENS ABBY METAB OLIC PANEL chloride 103 mmol/ L 98-110 normal Not Available [address], [address], 02/26/2022 15:45:05 02/26/20 22 02/26/2022 COMPR EHENS ABBY METAB OLIC PANEL carbon dioxide 28 mmol/ L 20-32 normal Not Available [address], [address], 02/26/2022 15:45:05 02/26/20 22 02/26/2022 COMPR EHENS ABBY METAB OLIC PANEL calcium 9.4 mg/dL 8.6-10 .4 normal Not Available [address], [address], 02/26/2022 15:45:05 02/26/20 22 02/26/2022 COMPR EHENS ABBY METAB OLIC PANEL protein, total 6.7 g/dL 6.1-8. 1 normal Not Available [address], [address], 02/26/2022 15:45:05 02/26/20 22 02/26/2022 COMPR EHENS ABBY METAB OLIC PANEL albumin 4.0 g/dL 3.6-5. 1 normal Not Available [address], [address], 02/26/2022 15:45:05 02/26/20 22 02/26/2022 COMPR EHENS ABBY METAB OLIC PANEL globulin 2.7 g/dL_ (calc ) 1.9-3. 7 normal Not Available [address], [address], 02/26/2022 15:45:05 02/26/20 22 02/26/2022 COMPR EHENS ABBY METAB OLIC PANEL albumin/glob ulin ratio 1.5 (calc ) 1.0-2. 5 normal Not Available [address], [address], 02/26/2022 15:45:05 02/26/20 22 02/26/2022 COMPR EHENS ABBY METAB OLIC PANEL bilirubin, total 0.3 mg/dL 0.2-1. 2 normal Not Available [address], [address], 02/26/2022 15:45:05 02/26/20 22 02/26/2022 COMPR EHENS ABBY METAB OLIC PANEL alkaline phosphatase 90 U/L 37-153 normal Not Available [address], [address], 02/26/2022 15:45:05 02/26/20 22 02/26/2022 COMPR EHENS ABBY METAB OLIC PANEL AST 14 U/L 10-35 normal Not Available [address], [address], 02/26/2022 15:45:05 02/26/20 22 02/26/2022 COMPR EHENS ABBY METAB OLIC PANEL ALT 13 U/L 6-29 normal Not Available [address], [address], 02/26/2022 15:45:05 02/26/20 22 02/26/2022 LIPID PANEL , STAND JOSE ENRIQUE cholesterol, total 109 mg/dL <200 normal Not Available [address], [address], 02/26/2022 15:45:05 02/26/20 22 02/26/2022 LIPID PANEL , STAND JOSE ENRIQUE HDL cholesterol 34 mg/dL > or = 50 low Not Available [address], [address], 02/26/2022 15:45:05 02/26/20 22 02/26/2022 LIPID PANEL , STAND JOSE ENRIQUE triglyceride s 192 mg/dL <150 high Not Available [facility] [id number] [place] [address], [address], 02/26/2022 15:45:05 02/26/20 22 02/26/2022 LIPID PANEL [...] 9): 2061- 2068 (http ://ed ucati on.Qu tejasTemnos. com/f aq/FA Q164) Not Available [facility] [address] [place], [address], 02/26/2022 15:45:05 02/26/20 22 02/26/2022 LIPID PANEL , STAND JOSE ENRIQUE chol/HDLC ratio 3.2 (calc ) <5.0 normal Not Available [facility] [address] [address], [place], [address], 02/26/2022 15:45:05 02/26/20 22 02/26/2022 LIPID PANEL , STAND JOSE ENRIQUE non HDL cholesterol 75 mg/dL _(roxie c) <130 normal For patie nts with diabe abby plus 1 major ASCVD risk facto r, treat ing to a non-H DL-C goal of <100 mg/dL (LDL- C of <70 mg/dL ) is consi dered a thera peuti c optio n. Not Available [facility] [address] [place], [address], 02/26/2022 15:45:05 09/03/19 23 09/14/2022 LIPID PANEL , STAND JOSE ENRIQUE cholesterol, total 130 mg/dL <200 normal Not Available [address] [address] [place], [address], 09/14/2022 15:23:05 09/03/19 23 09/14/2022 LIPID PANEL , STAND JOSE ENRIQUE HDL cholesterol 42 mg/dL > or = 50 low Not Available [address] [address] [place], [address], 09/14/2022 15:23:05 09/03/19 23 09/14/2022 LIPID PANEL , STAND JOSE ENRIQUE triglyceride s 150 mg/dL <150 high Not Available [address], [address], 09/14/2022 15:23:05 09/03/19 23 09/14/2022 LIPID PANEL [...] which is a valid ated novel marcelao d ronaldi juice murillo r accur acy than the Fried reina equat ion in the estim ation of LDL-C . Dee cruz SS et al. FREDDY. 2013; 310(1 9): 2061- 2068 (http ://ed ucati on.Qu Majo Peekap[employer]. com/f aq/FA Q164) Not Available [address] [address] [place], [address], 09/14/2022 15:23:05 09/03/19 23 09/14/2022 LIPID PANEL , STAND JOSE ENRIQUE chol/HDLC ratio 3.1 (calc ) <5.0 normal Not Available [facility] [address] [address] [place], [address], 09/14/2022 15:23:05 09/03/1909/14/2022 LIPID PANEL , STAND JOSE ENRIQUE non HDL cholesterol 88 mg/dL _(roxie c) <130 normal For patie nts with diabe abby plus 1 major ASCVD risk facto r, treat ing to a non-H DL-C goal of <100 mg/dL (LDL- C of <70 mg/dL ) is consi dered a thera peuti c optio n. Not Available [facility] [address] [address] [place], [address], 09/14/2022 15:23:05 09/03/1909/14/2022 COMPR EHENS ABBY METAB OLIC PANEL glucose 258 mg/dL 65-99 high Fasti ng refer ence inter aiden For someo ne witho ut known diabe abby, a gluco se value >125 mg/dL indic ates that they may have diabe abby and this shoul d be confi rmed with a follo w-up test. Not Available [facility] [address] [address] [place], [address], 09/14/2022 15:23:06 09/03/1909/14/2022 COMPR EHENS ABBY METAB OLIC PANEL urea nitrogen (BUN) 11 mg/dL 7-25 normal Not Available [facility] [address] [address] [place], [address], 09/14/2022 15:23:06 09/03/19 23 09/14/2022 COMPR EHENS ABBY METAB OLIC PANEL creatinine 0.87 mg/dL 0.50-1 .05 normal Not Available [facility] [address] [address] [place], [address], 09/14/2022 15:23:06 09/03/19 23 09/14/2022 COMPR EHENS [...] kdoqi /gfr% 5Fcal culat or Not Available [address] [address] [place], [address], 09/14/2022 15:23:06 09/03/19 23 09/14/2022 COMPR EHENS ABBY METAB OLIC PANEL BUN/creatini ne ratio NOT APPLIC ABLE (calc ) 6-22 Not Available [address], [address], 09/14/2022 15:23:06 09/03/19 23 09/14/2022 COMPR EHENS ABBY METAB OLIC PANEL sodium 138 mmol/ L 135-14 6 normal Not Available [address] [address] [place], [address], 09/14/2022 15:23:06 09/03/19 23 09/14/2022 COMPR EHENS ABBY METAB OLIC PANEL potassium 4.7 mmol/ L 3.5-5. 3 normal Not Available [address], [address], 09/14/2022 15:23:06 09/03/19 23 09/14/2022 COMPR EHENS ABBY METAB OLIC PANEL chloride 103 mmol/ L 98-110 normal Not Available [facility] [address] [address] [place], [address], 09/14/2022 15:23:06 09/03/19 23 09/14/2022 COMPR EHENS ABBY METAB OLIC PANEL carbon dioxide 28 mmol/ L 20-32 normal Not Available [facility] [address] [place] [address] [place], [address], 09/14/2022 15:23:06 09/03/19 23 09/14/2022 COMPR EHENS ABBY METAB OLIC PANEL calcium 9.6 mg/dL 8.6-10 .4 normal Not Available [address], [address], 09/14/2022 15:23:06 09/03/19 23 09/14/2022 COMPR EHENS ABBY METAB OLIC PANEL protein, total 7.2 g/dL 6.1-8. 1 normal Not Available [address], [address], 09/14/2022 15:23:06 09/03/19 23 09/14/2022 COMPR EHENS ABBY METAB OLIC PANEL albumin 4.3 g/dL 3.6-5. 1 normal Not Available [address], [address], 09/14/2022 15:23:06 09/03/19 23 09/14/2022 COMPR EHENS ABBY METAB OLIC PANEL globulin 2.9 g/dL_ (calc ) 1.9-3. 7 normal Not Available [address], [address], 09/14/2022 15:23:06 09/03/19 23 09/14/2022 COMPR EHENS ABBY METAB OLIC PANEL albumin/glob ulin ratio 1.5 (calc ) 1.0-2. 5 normal Not Available [address], [address], 09/14/2022 15:23:06 09/03/19 23 09/14/2022 COMPR EHENS ABBY METAB OLIC PANEL bilirubin, total 0.4 mg/dL 0.2-1. 2 normal Not Available [address], [address], 09/14/2022 15:23:06 09/03/19 23 09/14/2022 COMPR EHENS ABBY METAB OLIC PANEL alkaline phosphatase 97 U/L 37-153 normal Not Available [address] [address] [place], [address], 09/14/2022 15:23:06 09/03/19 23 09/14/2022 COMPR EHENS ABBY METAB OLIC PANEL AST 11 U/L 10-35 normal Not Available [address] [address] [place], [address], 09/14/2022 15:23:06 09/03/19 23 09/14/2022 COMPR EHENS ABBY METAB OLIC PANEL ALT 12 U/L 6-29 normal Not Available [address], [address], 09/14/2022 15:23:06 09/03/19 23 09/14/2022 ALBUM IN, RANDO M URINE W/CRE ATINI NE creatinine, random urine 21 mg/dL 20-275 normal Not Available [address] [address] [place], [address], 09/14/2022 15:23:06 09/03/19 23 09/14/2022 ALBUM IN, RANDO M URINE W/CRE ATINI NE albumin, urine <0.2 mg/dL see note: normal Refer ence Range : Refer ence Range Not estab lishe d Not Available [address], [address], 09/14/2022 15:23:06 09/03/19 23 09/14/2022 ALBUM IN, [...] a diagn ostic categ ory. Not Available [facility] [address] [place], [address], 09/14/2022 15:23:06 09/03/1909/14/2022 DEXAM ETHAS ONE dexamethason e 986 NG/dL Refer ence Range s for Dexam ethas one: Basel ine: Less than 20 ng/dL 1 mg dexam ethas one overn ight: 180-5 50 ng/dL (8:00 -10:0 0 AM) This test was devel oped and its diaz tical perfo rmanc e evgeny cteri stics have been deter mined by [facility] Cruz Mccoyi kurt Hyde . It has not been clear ed or appro millicent by FDA. This assay has been valid ated pursu ant to the CLIA regul ation s and is used for clini roxie purpo ses. Not Available [facility] [address] [place], [address], 09/14/2022 15:23:07 09/03/1909/14/2022 T4, FREE T4, free 0.9 NG/dL 0.8-1. 8 normal Not Available [facility] [address] [address] [place], [address], 09/14/2022 15:23:08 09/03/1909/14/2022 TSH TSH 0.81 mIU/L 0.40-4 .50 normal Not Available [facility] [address] [address] [place], [address], 09/14/2022 15:23:08 09/03/1909/14/2022 CORTI NERI, A.M. cortisol, A.M. 1.4 mcg/d L low Refer ence Range 8 a.m. (7-9 a.m.) Speci men: 4.0-2 2.0 Not Available [address] [address] [place], [address], 09/14/2022 15:23:09 09/03/19 23 09/14/2022 HEMOG LOBIN [...] diabe abby for child adebayo. Not Available [address] [address] [place], [address], 09/14/2022 15:23:09 10/04/19 23 10/11/2022 ACTH, PLASM A acth, plasma 29 pg/mL 6-50 Refer ence range appli es only to speci mens colle cted betwe en 7am-1 0am. Not Available [facility] [address] [address] [place], [address], 10/12/2022 00:03:05 10/04/19 23 10/11/2022 CORTI NERI, FREE, 24 HOUR URINE total volume 1000 mL Not Available [facility] [address] [address] [place], [address], 10/12/2022 00:03:06 10/04/19 23 10/11/2022 CORTI NERI, FREE, 24 HOUR URINE cortisol, free, urine 12.1 mcg/2 4_h 4.0-50 .0 Not Available [facility] [address] [address] [place], [address], 10/12/2022 00:03:06 10/04/1910/11/2022 CORTI NERI, FREE, 24 HOUR URINE cortisol, free, urine 12.5 mcg/g _crea t Refer ence Range : ADULT S: 3.1-4 2.3 Not Available [facility] [address] [address] [place], [address], 10/12/2022 00:03:06 10/04/1910/11/2022 CORTI NERI, FREE, 24 HOUR URINE creatinine, urine 0.97 g/24_ h 0.50-2 .15 This test was gerry ilnk and its diaz tical perfo rmanc e evgeny cteri stics have been deter mined by [facility] Cruz Mccoyi ermiase Daniel katz . It has not been clear ed or appro millicent by FDA. This assay has been valid ated pursu ant to the CLIA regul ation s and is used for clini roxie purpo ses. Not Available [facility] [address] [address] [place], [address], 10/12/2022 00:03:06 10/04/1910/11/2022 CORTI NERI, LC/MS , SALIV A, 2 SAMPL ES draw date 1 023 Not Available [facility] [address] [address] [place], [address], 10/12/2022 00:03:06 10/04/19 23 10/11/2022 CORTI NERI, LC/MS , SALIV A, 2 SAMPL ES draw time 1 2330 Not Available [facility] [address] [address] [place], [address], 10/12/2022 00:03:06 10/04/19 23 10/11/2022 CORTI NERI, [...] Saliv ette( R). This test was devel nikolay and its diaz tical perfo rmanc e evgeny cteri stics have been deter mined by [facility] Cruz abram Mccoyi ermiase Daniel katz . It has not been clear ed or appro millicent by FDA. This assay has been valid ated pursu ant to the CLIA regul ation s and is used for clini roxie purpo ses. Not Available [facility] [address] [place], [address], 10/12/2022 00:03:06 10/04/19 23 10/11/2022 CORTI NERI, LC/MS , SALIV A, 2 SAMPL ES draw date 2 023 Not Available [facility] [address] [place], [address], 10/12/2022 00:03:06 10/04/19 23 10/11/2022 CORTI NERI, LC/MS , SALIV A, 2 SAMPL ES draw time 2 2330 Not Available [facility] [address] [place], [address], 10/12/2022 00:03:06 10/04/19 23 10/11/2022 CORTI NERI, [...] Saliv ette( R). This test was devel nikolay and its diaz tical perfo rmanc e evgeny cteri stics have been deter mined by [facility] kurt Hyde . It has not been clear ed or appro millicent by FDA. This assay has been valid ated pursu ant to the CLIA regul ation s and is used for clini roxie purpo ses. Not Available [facility] [address] [place], [address], 10/12/2022 00:03:06 10/04/19 23 10/11/2022 CORTI NERI, A.M. cortisol, A.M. 20.0 mcg/d L normal Refer ence Range 8 a.m. (7-9 a.m.) Speci men: 4.0-2 2.0 Not Available [facility] [address] [place], [address], 10/12/2022 00:03:07 11/04/19 23 11/03/2022 CT, adren al, w/ wo contr ast No observ ation record ed. [email or web address] [facility] [address], [place], [address], 11/14/2022 15:31:03 11/30/19 23 11/29/2022 MAMMO , scree aly, digit al, bilat eral No observ ation record ed. [email or web address] [facility] [address], [place], [address], 12/09/2022 14:24:07 12/01/19 23 11/29/2022 bone densi ty No observ ation record ed. [email or web address] [facility] [address], [place], [address], 11/30/2022 20:16:19 Result Notes None recorded. Problems Name Problem SNOMED Code Status Onset Date Resolution Date Notes Provider Name and Address Organization Details Recorded Time Uncontrolled type 2 diabetes mellitus 466004836 Active 2021 Not Available [facility] 3 01:55:21 Well controlled type 2 diabetes mellitus 353053708 Active 2022 Not Available [facility] 3 01:55:21 Dyslipidemia 068156048 Active 2022 Not Available [facility] 3 01:55:21 Menopausal and postmenopausa l disorders 937682772 Active 2022 Not Available [facility] 3 01:55:21 Weight gain 9642316 Active 2022 Not Available [facility] 3 01:55:21 Abnormal cortisol 506029426 Active 2022 Not Available [facility] 3 01:55:21 Adrenal adenoma 805024734 Active 2022 Not Available [facility] 3 01:55:21 Adrenal [place]'s syndrome 790843178 Active 2022 Not Available [facility] 3 01:55:21 Problem Notes None recorded. Procedures Surgical History Date Name Laterality Status Provider Name and Address Organization Details Recorded Time Colonoscopy completed Not Available [facility] 06/22/2022 13:12:18 Imaging Results None recorded. Procedure Notes None recorded. Medical Equipment None [...] completed Not Available Not Available Not Available Rosaura Davidson U-100 Insulin 2021 active Not Available Not Available Not Avai lable ergocalcife rol (vit D2) (bulk) 08/09 completed Not Available Not Available Not Available Vitals Date Recorded Body mass index (BMI) Body height Oxygen saturation Oxygen saturation in Arterial blood by Pulse oximetry Heart rate Body temperature Body weight Systolic And Diastolic Provider Name and Address Organization Details Last Updated DateTime 2 33.1 kg/m2 160.02 cm 96 % 96 % 72 /min 97.7 [degF] 42117.7 7 g 120/82 mm[Hg] Not Available [facility] 3 13:12:33 Date Recorded Body mass index (BMI) Body height Oxygen saturation Oxygen saturation in Arterial blood by Pulse oximetry Heart rate Body temperature Body weight Systolic And Diastolic Provider Name and Address Organization Details Last Updated DateTime 2 32.4 kg/m2 160.02 cm 99 % 99 % 79 /min 97.8 [degF] 74419.4 g 110/80 mm[Hg] Not Available [facility] 3 13:12:33 Date Recorded Body height Body mass index (BMI) Body weight Body temperature Respiratory rate Heart rate Systolic And Diastolic Provider Name and Address Organization Details Last Updated DateTime 3 160.02 cm 32.9 kg/m2 52358.4 6 g 97.3 [degF] 20 /min 95 /min 144/91 mm[Hg] ZA Grimes - Jeannie [place] [employer] [facility] 3 14:52:28 Date Recorded Body mass index (BMI) Body height Oxygen saturation Oxygen saturation in Arterial blood by Pulse oximetry Heart rate Body temperature Body weight Systolic And Diastolic Provider Name and Address Organization Details Last Updated DateTime 2 32.9 kg/m2 160.02 cm 97 % 97 % 69 /min 97.8 [degF] 70351.1 8 g 110/75 mm[Hg] Not Available [facility] 13:12:33 Social History Question Answer Notes LastModified by [employer] Details LastModified Time Tobacco Smoking Status Current Every Day Smoker Not Available [facility] 06/22/2022 13:12:14 What Is Your Level Of Caffeine Consumption? Moderate [id number] Information not available 06/22/2022 In The 14 Days Before Symptom Onset, Have You Had Close Contact With A Laboratory-confirm ed COVID-19 While That Case Was Ill? No [id number] Information not available 06/22/2022 In The 14 Days Before Symptom Onset, Have You Had Close Contact With A Person Who Is Under Investigation For COVID-19 While That Person Was Ill? No [id number] Information not available 06/22/2022 What Type Of Diet Are You Following? REGULAR [id number] Information not available 06/22/2022 What Is Your Relationship Status? [id number] Information not available 06/22/2022 Do You Use Your Seat Belt Or Car Seat Routinely? Yes [id number] Information not available 06/22/2022 How Much Tobacco Do You Smoke? 1 PPW [id number].[id number] 0848 Information not available 06/22/2022 Have You Recently Traveled Abroad? No [id number] Information not available 06/22/2022 Do You Have Any Dietary Restrictions? No [id number].[id number] 3560 Information not available 06/22/2022 Sex: Female Functional Status Question Answer Note LastModified by [employer] Details LastModified Time Do you use any illicit or recreational drugs? No [id number] 26 Information not available 06/22/2022 What is your level of alcohol consumption? None [id number] 26 Information not available 06/22/2022 Mental Status None recorded. Family History Nothing Reported. Medical History Condition Response LUNG DISEASE/DISORDER COPD Y HIGH CHOLESTEROL / HYPERLIPIDEMIA Y EYE PROBLEMS Y HAVE YOU BEEN HOSPITALIZED OR SEEN IN [facility] IN THE PAST YEAR ? Y STROKE/TIA [...] Diagnosis SNOMED-CT Code Diagnosis ICD10 Code Diagnosis IMO Codes Diagnosis Note [id number] MD CHECO Roberts_GMG [facility] [place] [address] [place] [address] 05/31/2021 00:00:00 05/31/2021 14:06:32 [id number] MD ARMANDO RobertsGMRosemarie [facility] [place] [address] [place] [address] 07/23/2021 00:00:00 07/23/2021 16:29:56 [id number] MD CHECO Roberts_GMRosemarie [facility] [place] [address] [place] [address] 12/28/2021 00:00:00 12/28/2021 13:59:46 [id number] MD CHECO Roberts_GMRosemarie [facility] [place] [address] [place] [address] 08/09/2022 14:28:35 08/09/2022 15:17:25 Well controlled type 2 diabetes mellitus 007751113 E11.9 A1C of 6.8% down from 7.2%-carmen [...] DST to screen for hypercorti solism. Dyslipidemia 583732606 E 78.5 Continue statin therapy. Menopausal and postmenopausal disorders 793397473 N95.9 Send for bone density to screen for osteoporos is. Weight gain 3711542 R63. 5 Will send for low dose [...] she chooses to go outside of the [facility] system to obtain labwork she was [...] Recorded Advance Directives Directive None Recorded Payers Insurance Date Sequence Insurance Name Policy Number Policy Borrero Covered Member ID Borrero Member ID Guarantor Name 08/09/2022 1 [employer] (MEDICARE REPLACEMENT HMO) [id number] Keyla Cotog [id number] Keyla Cotog 08/09/2022 1 [facility] (MEDICARE REPLACEMENT/AD VANTAGE - HMO) [id number] Keyla Cotog [id number] Keyla Arreaga Notes Date Note Type Note Provider Name and Address Organization Details Recorded Time 08/09/2022 text/html ROS as noted in the HPI 66 yo female comes in for follow up in management of [...] her right ring finger removed- went to [place] we referred to Dr. De Souza. usually [...] 1.1 ng/mLmicroalbumin 3 ug/mgglucose 121 mg/dLCr normalLFT habrzy755/192/34/49 Yumiko Acosta MD [address] [facility], [facility] [address], [place], [address], [facility] 08/09/2022 15:19:30 OBGyn Episode No OBEpisode recorded.
--- OUTSIDE RECORDS SUMMARY | 2025-03-02 09:53 | XMS_ITS | Encounter Summary ---
Author Organization [facility] Address [address] [place] [address] Care Team Providers Care Offset Label Rewinder Name Role Phone Karan Ngo MD Unavailable Abdulkadir Craft MD Unavailable Carole Neal MD Unavailable [phone] Rohith Sen MD Primary Care Provider [phone] Encounter Details Date Type Department Care Team (Late st Contact Info) Description 11/17/2015 Abstract [facility] CONVERSION [address] [place], [place] [id number] , Olinda Polo MD Social History Tobacco [...] on filedocumented in this encounter Care Teams Offset Label Rewinder Relationship Specialty Start Date End Date Rohith Sen MD [address] [place] [address] PCP - General FAMILY PRACTICE 02/03/23 Karan Ngo MD [address] [address] CARDIOVASCULAR DISEASE 01/29/21 [place] [address] [place] [address] Referring Physician RHEUMATOLOGY 01/29/21 Carole Neal MD [address] [place] [address] PULMONARY DISEASE 01/29/21 documented as of this encounter
--- OUTSIDE RECORDS SUMMARY | 2025-03-02 09:53 | XMS_ITS | Encounter Summary ---
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
--- OUTSIDE RECORDS SUMMARY | 2025-03-02 09:53 | XMS_ITS | Encounter Summary ---
Author Organization [facility] Address [address] [place] [address] Care Team Providers Care Natural Resources Instructor Name Role Phone Karan Ngo MD Unavailable Abdulkadir Craft MD Unavailable Carole Neal MD Unavailable [phone] Rohith Sen MD Primary Care Provider [phone] Encounter Details Date Type Department Care Team (Late st Contact Info) Description 01/30/[address] [facility] [place] [id number] Maximo Jones MD [address] [facility] [place], [place] [id number] Social History Tobacco Use Types Packs/Day Years [...] Arthritis RA, osteoarthritis, psoriatric arthritis ??? Cancer ([facility]) leukemia as a child ??? Colitis ??? COPD (chronic obstructive pulmonary disease) ([facility]) ??? Coronary artery disease ??? 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 Diabetes mellitus ([facility]) ??? Diverticulitis ??? Emphysema lung ([facility]) ??? MVP (mitral valve prolapse) ??? Neuropathy feet ??? On supplemental oxygen by nasal cannula 4L O2 PRN ??? Seizure ([facility]) patient unsure about this ??? Stroke ([facility]) possible TIA? Allergies: Allergies Allergen Reactions [...] on filedocumented in this encounter Care Teams Natural Resources Instructor Relationship Specialty Start Date End Date Rohith Sen MD [address] [id number] PCP - General FAMILY PRACTICE 02/03/23 Karan Ngo MD [address] [facility] [address] [place] [address] CARDIOVASCULAR DISEASE 01/29/21 [place] [address] [place] [address] Referring Physician RHEUMATOLOGY 01/29/21 Carole Neal MD [address] [place] [address] PULMONARY DISEASE 01/29/21 documented as of this encounter
--- OUTSIDE RECORDS SUMMARY | 2025-03-02 09:53 | XMS_ITS | Encounter Summary ---
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 03/05/2021 06/08/2021 07/03/2021 3:[address] COVID: Suspected 11/03/2024 11/03/2024 11/03/2024 12:41 PM CDT COVID: Suspected 11/05/2024 11/05/2024 11/05/2024 1:53 PM CDT documented as of this encounter Care Teams Dip Guider Stoves Relationship Specialty Start Date End Date Gin Wilson MD [address] [place] [address] PCP - General Family Practice 06/19/19 01/31/21 Gin Wilson MD [address] [place] [address] PCP - General Family Practice 02/01/21 12/04/23 Rohiht Sen MD [address] [place] [address] PCP - General Family Practice 12/05/23 10/01/24 Beatriz Cuevas NP [address] [place] [address] PCP - General Nurse Practitioner 10/02/24 Karan Ngo MD [address] [address] [place], [place] [id number] Consulting Physician Cardiology 11/02/18 documented as of this encounter
--- OUTSIDE RECORDS SUMMARY | 2025-03-02 09:54 | XMS_ITS | Clinical Summary ---
Author Organization [facility] Address [address] [place] [address] Care Team Providers Care Filling And Stapling Machine Operator Name Role Phone Karan Ngo MD Unavailable Abdulkadir Craft MD Unavailable Carole Neal MD Unavailable [phone] Rohith Sen MD Primary Care Provider [phone] Allergies Active Allergy Reactions Criticality Noted Date [...] 2024-2 6 season) 2024 07/31/2020, 07/10/2020 Influenza Adult (#1) 2025 RSV Immunization or 60+ Years (1 - 1-dose 75+ series) 11/16/2031 Hepatitis A Vaccines Aged Out No long er eligible based on patient's age to complete this topic Meningococcal B Vaccine Aged Out No l onger eligible based on patient's age to complete this topic Meningococcal Vaccine Aged Out No rui vanessa eligible based on patient's age to complete this topic RSV Immunizations Under 20 Months Aged Out No longer eligible b ased on patient's age to complete this topic Insurance [employer] U[employer] MEDICARE Care Teams Filling And Stapling Machine Operator Relationship Specialty Start Date End Date Rohith Sen MD [address] [place] [address] PCP - General FAMILY PRACTICE 02/03/23 Karan Ngo MD [address] [address] CARDIOVASCULAR DISEASE 01/29/21 [place] [address] [place] [address] Referring Physician RHEUMATOLOGY 01/29/21 Carole Neal MD [address] [place] [address] PULMONARY DISEASE 01/29/21
--- OUTSIDE RECORDS SUMMARY | 2025-03-02 09:54 | XMS_ITS | Clinical Summary ---
Author Organization [facility] [place] [address] Address [address] [place] [address] Care Team Providers Care Airport Maintenance Chief Name Role Phone Karan Ngo MD Unavailable Beatriz Cuevas NP Primary Care Provider [phone] Allergies Active Allergy Reactions Criticality Noted Date [...] TYLEONOL THREE TIMES DAILY NEEDED FOR PAIN 022 Active nitroglycerin (NITROSTAT) 0.4 mg SL tabletIndication s:acute episode of anginal pain Place 1 tablet (0.4 mg total) under the tongue every 5 (five) minutes as needed for chest pain May repeat every 5 min, up to 3 doses. 25 tablet 3 022 Active ezetimibe (ZETIA) 10 mg tablet Take 1 tablet (10 mg total) by mouth daily 30 tablet 11 024 Active clopidogreL (PLAVIX) 75 mg tablet TAKE 1 TABLET BY MOUTH EVERY DAY 90 tablet 1 025 Active lisinopriL (PRINIVIL,ZESTRI L) 5 mg tablet TAKE 1 TABLET (5 MG TOTAL) BY MOUTH DAILY. 90 tablet 1 025 Active glycopyrrolate-f ormoteroL (BEVESPI AEROSPHERE) 9-4.8 mcg inhaler Inhale 2 puffs 2 (two) times a day 1 each 11 Active nicotine (NICODERM CQ) [address] 1 patch on the skin daily for 24 hours 30 patch 2 025 Active empagliflozin (JARDIANCE) 25 mg tablet Take 1 tablet (25 mg total) by mouth daily 025 Active isosorbide mononitrate ER (IMDUR) 60 mg 24 hr tabletIndication s:Coronary artery disease of [place] artery of [place] heart with stable angina pectoris TAKE 1 TABLET BY MOUTH EVERY DAY 90 tablet 3 025 Active carvediloL (COREG) 3.125 mg tablet TAKE 1 TABLET BY MOUTH TWICE A DAY WITH MEALS 180 tablet 3 025 Active rosuvastatin (CRESTOR) 40 mg tablet TAKE 1 TABLET BY MOUTH EVERY DAY AT NIGHT 90 tablet 3 025 Active HYDROcodone-acet aminophen (NORCO) 5-325 mg per tabletIndication s:Pain Take 1 tablet by mouth every 6 (six) hours as needed for pain 12 tablet 025 Active rosuvastatin (CRESTOR) 40 mg tablet TAKE 1 TABLET BY MOUTH EVERY DAY AT NIGHT 90 tablet 3 024 2024 Discontinued varenicline tartrate (CHANTIX JUAN C) 0.5 mg (11)- 1 mg (42) tablet Take 0.5 mg by mouth 2 (two) times a day 53 tablet 025 2024 Active Problems Problem Noted Date Diagnosed Date COPD exacerbation ([facility]) 10/10/2020 Acute on chronic respiratory failure with hypoxe brian 10/10/2020 Pancreatic cyst 03/23/2020 Type 2 diabetes mellitus wit h hyperglycemia, with long-term current use of insulin 03/16/2020 Assessment & Plan (03/16/2020 2:22 PM SHIRT BANDER): Diagnosed in 2013- Had recurrent pancreatitis. Started [...] 03/16/2020 Assessment & Plan (03/16/2020 2:23 PM SHIRT BANDER): Complicated with CAD Controlled with medication - [...] (11/02/2018): Added automatically from request for surgery [id number] Assessment & Plan (12/11/2018 5:10 PM CDT): [...] Encounters Date Type Department Care Team Description 02/03/2025 2:55 PM CDT - 02/03/2025 3:07 PM CDT Emergency [facility] Emergency Department [address] [place] [address] Abdominal pain, unspecified abdominal location (Primary Dx) Discharge Disposition: Discharge to home or self care 01/23/[address] [facility] Medical [facility] [address] [facility] [address] [place] [phone] Karan Ngo MD 01/17/2025 2:15 PM CDT - 01/17/2025 4:55 PM CDT Emergency [facility] Emergency Department 1 [place] [address] Left genital labial abscess (Primary Dx) Discharge Disposition: Discharge to home or self care 01/16/2025 10:30 AM CDT Office Visit [facility] Medical [facility] [address] [place] [phone] Marta Concepcion NP Coronary artery disease of [place] artery of [place] heart with stable angina pectoris; Infrarenal abdominal aortic aneurysm (AAA) without rupture; Tobacco abuse; Palpitations from Last 3 Months Surgical History [...] x feb 2018 last 2 placed / [place] 2017 COPD (chronic obstructive pu lmonary disease) [...] drink = 0.6 oz pur e alcohol) [facility] Utilities Answer Date Recorded In the past 12 months has th e electric, gas, oil, or water [employer] threatened to shut off services in your [...] 11/06/2024 How often do you attend chur or oriental orthodox services? More than 4 times per year 11/06/2024 Do you belong to any clubs o r organizations such as adventist groups, unions, fraternal or athletic groups, or [...] any time in the past 12 m [facility], were you homeless or living in a group home (including now)? No 11/06/2024 Personal Safety Answer Date Recorded Have you ever been in or are you currently in a harmful physical or emotional relationship or is someone making you feel afraid or unsafe? Denies 02/03/2025 Comments No Sex and Gender Information Value Date Recorded Sex Assigned at Not on file Legal Sex Female 1:49 PM SHIRT BANDER Gender Identity Not on file Sexual Orientation Not on file Last Filed Vital Signs Vital Sign Reading Time Taken Comments Blood Pressure 97/65 02/03/2025 3:05 PM CDT Pulse 78 02/03/2025 3:05 PM CDT Temperature 36.3 C (97.4 F) 02/03/2025 1:31 PM CDT Respiratory Rate 18 02/03/2025 3:05 PM CDT Oxygen Saturation 96% 02/03/2025 3:05 PM CDT Inhaled Oxygen Concentration - - Weight 82.1 kg (181 lb) 02/03/2025 1:31 PM CDT Height 160 cm (5' 3) 02/03/2025 1:31 PM CDT Body Mass Index 32.06 02/03/2025 1:31 PM CDT Plan of Treatment Health Maintenance [...] 10/02/2025 10/02/2024, 11/22, 12/16/2021, Additional history exists Fall Risk Assessment 11/07/2025 11/07/2024, 06/28/19 19 eGFR 02/03/2026 02/03/2025, 12/24, 11/05/2024, Additional history exists Covid-19 Vaccine Discontinued 07/31/2020, 07/10/2020 Medical Devices Implanted Type Area Chief Wellness Officer Device Identifier Shelf Expiration Date Model / Serial / Lot System Coronary Stent Synergy Pebax Everolimus Eluting [place] Chromium Plga L12 Mm L144 Cm Od2.25 Mm Radiopaque 1 Access Port Inflation Lumen Accepts .014 In Guidewire - [id number] Implanted:Qty: 1 on 04/06/2017 by Karan Ngo MD at [facility] [employer] [facility] 12/19/2017 [id number] / / [id number] Procedures Procedure Name Priority Date/Time Associated Diagnosis Comments CT ABDOMEN PELVIS W CONTRAST ED 02/03/2025 2:08 PM CDT EGFR STAT 02/03/2025 1:39 PM CDT DIFFERENTIAL AUTO STAT 02/03/2025 1:3 9 PM CDT AMYLASE Routine 02/03/2025 1:39 PM CDT LIPASE STAT 02/03/2025 1:39 PM CDT COMPREHENSIVE METABOLIC PANEL STAT 02/03/2025 1:39 PM CDT CBC WITH AUTO DIFFERENTIAL STAT 02/03/2025 1:39 PM CDT ED INCISION AND DRAINAGE Routine 01/17/2025 4:30 PM CDT EGFR STAT 01/17/2025 2:59 PM CDT DIFFERENTIAL AUTO STAT 01/17/2025 2:5 9 PM CDT COMPREHENSIVE METABOLIC PANEL STAT 01/17/2025 2:59 PM CDT CBC WITH AUTO DIFFERENTIAL STAT 01/17/2025 2:59 PM CDT URINALYSIS AND REFLEX TO MICROSCOPIC AND CULTURE STAT 01/17/2025 2:59 PM CDT POCT LIPID PANEL Routine 10/02/2024 10:5 9 AM CDT Lipid screening POCT HEMOGLOBIN A1C Routine 03/16/2020 2 :10 PM SHIRT BANDER Type 2 diabetes mellitus with hyperglycemia, with long-term current use of insulin (HCC) DIABETES EYE EXAM Routine 02/06/2019 from Last 3 Months or Most Recently Relevant to Health Maintenance Results * CT Abdomen Pelvis W Contrast (02/03/2025 2:08 PM CDT) Anatomical Region Laterality Modality Body N/A Computed Tomogra phy 02/03/2025 2:31 PM CDT Narrative 02/03/2025 2:45 PM CDT EXAM DESCRIPTION: CT ABDOMEN PELVIS W CONTRAST REASON FOR STUDY: Epigastric pain, Epigastric and right upper quadrant pain; history pancreatitis, prior cholecystectomy Intermittent RUQ abdominal pain. Hx of cholecystectomy and hernia surgery TECHNIQUE: CT scan of the abdomen and pelvis performed with intravenous and without oral contrast using helical scanning technique with dynamic intravenous contrast injection. Reconstructed coronal and sagittal MPR images reviewed. All images stored on PACS. Automated exposure control was used as a dose optimization technique for this examination. CONTRAST TYPE/DOSE: 75mL of IOVERSOL 350 MG IODINE/ML INTRAVENOUS SYRINGE injected via intravenous COMPARISON: CT abdomen pelvis 07/10/2021 FINDINGS: LOWER CHEST: There is bibasilar subsegmental atelectasis. There are mild emphysematous changes to the lungs. LIVER: Normal size. No identified cystic or solid masses. GALLBLADDER: Not visualized BILE DUCTS: No intrahepatic or extrahepatic ductal dilatation. SPLEEN: Normal size. No focal lesions. PANCREAS: Main pancreatic duct is mildly dilated measuring up to 4 mm in the pancreatic head and 6 mm in the pancreatic body/tail. Also within the proximal tail of the pancreas there is a 10 mm hypoattenuating lesion which previously measured 9 mm (series 3, image 37). No obvious peripancreatic inflammatory change. ADRENALS: Normal. KIDNEYS/URINARY TRACT: No identified significant cystic or solid masses. No visualized stones. No hydronephrosis or hydroureter. Symmetric enhancement. Urinary bladder is unremarkable. GI: There is a small hiatal hernia. There are no dilated or thick-walled loops of bowel appreciated. There is no sign of appendicitis. There is colonic diverticulosis without diverticulitis. PERITONEUM: No ascites or free air. RETROPERITONEUM: No mass or adenopathy. REPRODUCTIVE: No significant abnormality. VASCULATURE: Moderate amount of calcified atherosclerotic plaque throughout the aortoiliac system. There is an infrarenal abdominal aortic aneurysm measuring 3.6 x 4.6 cm (AP X transverse), previously measuring 3.3 x 4.3 cm when applying the same measuring technique to both studies. MUSCULOSKELETAL: No significant abnormality. OTHER: No other abnormality. IMPRESSION: 1. No acute findings in the abdomen or pelvis. 2. Mildly dilated main pancreatic duct measuring up to 4 mm in the pancreatic head and 6 mm in the pancreatic body/tail. Also within the proximal tail of the pancreas there is a 10 mm hypoattenuating lesion which previously measured 9 mm. Recommend further evaluation with MRI pancreatic mass protocol. 3. Infrarenal abdominal aortic aneurysm measuring 3.6 x 4.6 cm, previously measuring 3.3 x 4.3 cm when applying the same measuring technique to both studies. 4. Colonic diverticulosis without diverticulitis. 5. Small hiatal hernia. THIS IS AN ELECTRONICALLY VERIFIED FINAL REPORT 02/03/2025 2:45 PM - Electronically signed by Calixto Smith M.D. AM: AM Report ID: [id number] Reading Location: [place] [address] Procedure Note Calixto Smith MD - 02/03/2025 EXAM DESCRIPTION: CT ABDOMEN PELVIS W CONTRAST REASON FOR STUDY: Epigastric pain, Epigastric and right upper quadrantpain; history pancreatitis, prior cholecystectomy Intermittent RUQ abdominal pain. Hx of cholecystectomy and hernia surgery TECHNIQUE: CT scan of the abdomen and pelvis performed with intravenousand without oral contrast using helical scanning technique with dynamic intravenous contrast injection. Reconstructed coronal and sagittal MPRimages reviewed. All images stored on PACS. Automated exposure control was usedas a dose optimization technique for this examination. CONTRAST TYPE/DOSE: 75mL of IOVERSOL 350 MG IODINE/ML INTRAVENOUSSYRINGE injected via intravenous COMPARISON: CT abdomen pelvis 07/10/2021 FINDINGS: LOWER CHEST: There is bibasilar subsegmental atelectasis. There aremild emphysematous changes to the lungs. LIVER: Normal size. No identified cystic or solid masses. GALLBLADDER: Not visualized BILE DUCTS: No intrahepatic or extrahepatic ductal dilatation. SPLEEN: Normal size. No focal lesions. PANCREAS: Main pancreatic duct is mildly dilated measuring up to 4 mm inthe pancreatic head and 6 mm in the pancreatic body/tail. Also within the proximal tail of the pancreas there is a 10 mm hypoattenuating lesionwhich previously measured 9 mm (series 3, image 37). No obvious peripancreatic inflammatory change. ADRENALS: Normal. KIDNEYS/URINARY TRACT: No identified significant cystic or solid masses.No visualized stones. No hydronephrosis or hydroureter. Symmetricenhancement. Urinary bladder is unremarkable. GI: There is a small hiatal hernia. There are no dilated orthick-walled loops of bowel appreciated. There is no sign of appendicitis. There is colonic diverticulosis without diverticulitis. PERITONEUM: No ascites or free air. RETROPERITONEUM: No mass or adenopathy. REPRODUCTIVE: No significant abnormality. VASCULATURE: Moderate amount of calcified atherosclerotic plaquethroughout the aortoiliac system. There is an infrarenal abdominal aortic aneurysm measuring 3.6 x 4.6 cm (AP X transverse), previously measuring 3.3 x 4.3cm when applying the same measuring technique to both studies. MUSCULOSKELETAL: No significant abnormality. OTHER: No other abnormality. IMPRESSION: 1. No acute findings in the abdomen or pelvis. 2. Mildly dilated main pancreatic duct measuring up to 4 mm in thepancreatic head and 6 mm in the pancreatic body/tail. Also within the proximal tailof the pancreas there is a 10 mm hypoattenuating lesion which previouslymeasured 9 mm. Recommend further evaluation with MRI pancreatic mass protocol. 3. Infrarenal abdominal aortic aneurysm measuring 3.6 x 4.6 cm,previously measuring 3.3 x 4.3 cm when applying the same measuring technique to both studies. 4. Colonic diverticulosis without diverticulitis. 5. Small hiatal hernia. THIS IS AN ELECTRONICALLY VERIFIED FINAL REPORT 02/03/2025 2:45 PM - Electronically signed by Calixto Smith M.D. AM: AM Report ID: [id number] Reading Location: [place] [address] [address] PROCEDURES Final Re sult * eGFR (02/03/2025 1:39 PM CDT) eGFR 62 >=60 mL/min/1. 73 m2 Comment: Interpretive Data [...] interpretive data was last reviewed 2021. Blood 02/03/2025 1:39 PM CDT 02/03/2025 1:45 PM CDT [facility] LAB BLOOD ORDERABLES Final Result [facility] ([place]) 1 [facility] Department [place] [address] * Differential, auto (02/03/2025 1:39 PM CDT) Neutrophil abs 2.84 1.50 - 6.50 K/cumm Imm gran abs 0.01 0.00 - 0.10 K/cumm [facility] ([place]) Lymphocyte abs 1.61 0.80 - 3.30 K/cumm [facility] ([place]) Monocyte abs 0.34 0.20 - 0.80 K/cumm [facility] ([place]) Eosinophil abs 0.15 0.00 - 0.50 K/cumm [facility] ([place]) Basophil abs 0.03 0.00 - 0.10 K/cumm [facility] ([place]) Neutrophil pct 57.1 % [facility] ([place] Comment: Interpretive Data Percent cell count reference [...] was last revised on 2017. Lymphocyte pct 32.3 % [facility]) Comment: Interpretive Data Percent cell count reference ranges are not reported, since discordance with absolute values may lead to misinterpretation of CBC data. Current Interpretive Data was last revised on 2017. Monocyte pct 6.8 % [facility] ([place]) Comment: Interpretive Data Percent cell count reference ranges are not reported, since discordance with absolute values may lead to misinterpretation of CBC data. Current Interpretive Data was last revised on 2017. Eosinophil pct 3.0 % [facility] ([place] Comment: Interpretive Data Percent cell count reference ranges are not reported, since discordance with absolute values may lead to misinterpretation of CBC data. Current Interpretive Data was last revised on 2017. Basophil pct 0.6 % [facility] ([place]) Comment: Interpretive Data Percent cell count reference ranges are not reported, since discordance with absolute values may lead to misinterpretation of CBC data. Current Interpretive Data was last revised on 2017. Blood 02/03/2025 1:39 PM CDT 02/03/2025 1:45 PM CDT [facility] LAB BLOOD ORDERABLES Final Result [facility] ([place] Department [place] [address] * (ABNORMAL) CBC with auto differential (02/03/2025 1:39 PM CDT) WBC 4.98 3.80 - 9.90 K/cumm Hgb 13.0 11.9 - 15.5 g/dL [facility] ([place] Hct 40.3 35.6 - 45.5 % [facility] [place] Plt 186 150 - 400 K/cumm [facility] [place] MPV 10.1 9.1 - 12.3 fL [facility] [place] RBC 4.37 3.90 - 5.20 M/cumm [facility] [place] MCV 92.2 81.3 - 96.4 fL [facility] [place] MCH 29.7 27.1 - 33.3 pg [facility] [place] MCHC 32.3 32.3 - 35.7 g/dL [facility] [place] RDW CV 14.8 11.1 - 14.9 % [facility] [place] RDW SD 50.8(H) 35.7 - 48.1 fL [facility] [place] NRBC abs 0.00 0.00 - 0.01 K/cumm [facility] ([place]) Blood 02/03/2025 1:39 PM CDT 02/03/2025 1:45 PM CDT [facility] LAB BLOOD ORDERABLES Final Result Performing Organization Address [facility]/ZIP Co de Phone Number [facility] ([place]) 1 [facility] [place] [address] * Lipase (02/03/2025 1:39 PM CDT) Pathologist [facility] Lipase 85 10 - 99 Units/L Blood 02/03/2025 1:39 PM CDT 02/03/2025 1:45 PM CDT Kvng [facility] LAB BLOOD ORDERABLES Final Result Performing Organization Address [facility] de Phone Number [facility] ([place]) [address] [place] [address] * (ABNORMAL) Amylase (02/03/2025 1:39 PM CDT) [facility] Amylase 119(H) 30 - 99 Units/L Blood 02/03/2025 1:39 PM CDT 02/03/2025 1:45 PM CDT Kvng [facility] LAB BLOOD ORDERABLES Final Result Performing Organization Address [facility] Co de Phone Number [facility] ([place]) [address] [place] [address] * Comprehensive metabolic panel (02/03/2025 1:39 PM CDT) Pathologist [facility] Sodium 140 135 - 145 mmol/L Potassium, pl 4.4 3.3 - 4.9 mmol/L [facility] ([place]) Chloride 105 97 - 110 mmol/L [facility] ([place]) CO2 27 22 - 32 mmol/L [facility] ([place] Anion gap 8 2 - 15 mmol/L [facility] ([place] BUN 12 6 - 25 mg/dL [facility] [place] Creatinine 0.99 0.60 - 1.10 mg/dL [facility] ([place] Glucose 181 70 - 199 mg/dL [facility] ([place] [...] interpretive data was last revised 2022. Calcium 10.0 8.5 - 10.3 mg/dL [facility] ([place]) Bilirubin, total 0.3 0.1 - 1.2 mg/dL [facility] ([place]) Protein, pl 6.7 6.5 - 8.5 g/dL [facility] ([place]) Albumin 4.1 3.5 - 5.0 g/dL [facility] ([place] Alk phos 89 40 - 130 Units/L [facility] [place] ALT 14 7 - 45 Units/L [facility] [place] AST 20 10 - 45 Units/L [facility] [place] Blood 02/03/2025 1:39 PM CDT 02/03/2025 1:45 PM CDT [facility] LAB BLOOD ORDERABLES Final Result [facility] ([place] [address] [facility] Department of Laboratories [place], [place] [id number] * Incision and Drainage (01/17/2025 4:30 PM [...] BLOOD ORDERABLES Final Resu lt [facility] ([place]) [address] [facility] Department [place] [address] * (ABNORMAL) Differential, auto (01/17/2025 2:59 PM [...] Final Resu lt [facility] ([place] [address] [facility] Department [place] [address] * (ABNORMAL) Urinalysis reflex to microscopic and culture Urine (01/17/2025 2:59 PM CDT) Color, ur Yellow Yellow Clarity, ur Clear Clear [facility] ([place]) Specific gravity, ur 1.016 1.003 - 1.030 [facility] ([place]) pH, urine 5.0 [facility] ([place] Comment: Interpretive Data U rine pH is affected by diet, medications, systemic acid-base disturbances, and renal tubular function. pH may affect urinary stone formation. For example, urine pH below 6.0 may help reduce the tendency for calcium phosphate stones and pH greater than 6.0 may reduce the tendency for uric acid stone formation. Source: [facility] [employer] Current Interpretive Data was last revised on [...] us Lauryn [facility] LAB MICROBIOLOGY - GENERAL ORDE RABLES Final Result Performing Organization Address City/[facility]/ZIP Co de Phone Number [facility] ([place]) 1 [facility] Department [place] [address] * (ABNORMAL) CBC with auto differential (01/17/2025 [...] Final Resu lt [facility] ([place] [address] [facility] Department [place] [address] * Comprehensive metabolic panel (01/17/2025 2:59 PM CDT) Sodium 138 135 - 145 mmol/L [facility] ([place]) Potassium, pl 4.3 3.3 - 4.9 mmol/L [facility] ([place]) Chloride 101 97 - 110 mmol/L [facility] ([place] CO2 24 22 - 32 mmol/L [facility] ([place] Anion gap 13 2 - 15 mmol/L [facility] ([place] BUN 11 6 - 25 mg/dL [facility] ([place]) Creatinine 1.00 0.60 - 1.10 mg/dL [facility] ([place]) Glucose 102 70 - 199 mg/dL [facility] ([place]) Comment: Interpretive Data Fasting glucose >/= 126 [...] Bilirubin, total 0.4 0.1 - 1.2 mg/dL [facility] ([place]) Protein, pl 7.3 6.5 - 8.5 g/dL [facility] ([place]) Albumin 4.1 3.5 - 5.0 g/dL [facility] ([place]) Alk phos 96 40 - 130 Units/L [facility] ([place] ALT 25 7 - 45 Units/L [facility] [place] AST 23 10 - 45 Units/L [facility] ([place] Comment:Hemolysis present. R esults may be affected. Blood 01/17/2025 2:59 PM CDT 01/17/2025 3:11 PM CDT Lauryn [facility] LAB BLOOD ORDERABLES Final Resu lt [facility] ([place] Department [place] [address] * (ABNORMAL) POCT lipid panel (10/02/2024 10:59 [...] * POCT hemoglobin A1c (03/16/2020 2:10 PM SHIRT BANDER) Hemoglobin A1C, POC 7.1 Blood specimen (specimen) 03/16/2020 2:10 PM SHIRT BANDER Abena Ronquillo MD POINT OF CARE TEST ORDERABLES Final Result * DIABETES EYE EXAM (02/06/2019) Diabetic Eye Exam Unknown Wendy Wolff MD HEALTH MAINTENANCE Final Result from Last 3 Months or Most Recently Relevant to Health Maintenance Insurance [facility] [employer] [facility] Address: [address] [address] [facility] Address: [address] [address] [facility] Address: [address] [address] Advance Directives For more information, please contact: [phone] * Full Code (Latest Code Status on File) Date Activated Date Inactivated Comments 11/05/2024 4:12 PM 11/07/2024 3:15 PM * Full Code Date Activated Date Inactivated Comments 10/10/2020 6:56 PM 10/12/2020 5:57 PM * Full Code Date Activated Date Inactivated Comments 11/30/2018 7:41 AM 11/30/2018 1:32 PM * Full Code Date Activated Date Inactivated Comments 04/06/2017 3:48 PM 04/07/2017 2:06 PM Care Teams Airport Maintenance Chief Relationship Specialty Start Date End Date Beatriz Cuevas NP [address] [place] [address] PCP - General Nurse Practitioner 10/02/24 Karan Ngo MD [address] [place] [address] [facility] [address], [place] [address] [place] [address] Consulting Physician Cardiology 11/02/18
== END 2025-03-02 09:48 | disposition home or self-care (01) ==
PROVIDERS: PCP Nurse Practitioner Adult Health; Visit Provider Nurse Practitioner
DX: K86.2 Cyst of pancreas (principal); I71.43 Infrarenal abdominal aortic aneurysm, without rupture
CPT/HCPCS: 74183; A9577

== ENCOUNTER 2025-04-08 10:34 | Outpatient (CLI) | payer MEDICARE, SELFPAY ==
--- OUTSIDE RECORDS SUMMARY | 2025-04-08 12:27 | XMS_ITS | Encounter Summary ---
Author Organization [facility] Address [address] [place] [address] Care Team Providers Care Fisher Mussel Name Role Phone Karan Ngo MD Unavailable Abdulkadir Craft MD Unavailable Carole Neal MD Unavailable [phone] Rohith Sen MD Primary Care Provider [phone] Encounter Details Date Type Department Care Team (Late st Contact Info) Description 01/30/[address] [facility] [id number] Maximo Jones MD [address] [facility] [place], [place] [id number] Social History Tobacco Use Types Packs/Day Years [...] Arthritis RA, osteoarthritis, psoriatric arthritis ??? Cancer ([facility]) leukemia as a child ??? Colitis ??? COPD (chronic obstructive pulmonary disease) ([facility]) ??? Coronary artery disease ??? 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 Diabetes mellitus ([facility]) ??? Diverticulitis ??? Emphysema lung ([facility]) ??? MVP (mitral valve prolapse) ??? Neuropathy feet ??? On supplemental oxygen by nasal cannula 4L O2 PRN ??? Seizure ([facility]) patient unsure about this ??? Stroke ([facility]) possible TIA? Allergies: Allergies Allergen [...] on filedocumented in this encounter Care Teams Fisher Mussel Relationship Specialty Start Date End Date Rohith Sen MD [address] [id number] PCP - General FAMILY PRACTICE 02/03/23 Karan Ngo MD [address] [facility] [address] [place] [address] CARDIOVASCULAR DISEASE 01/29/21 [place] [address] [place] [address] Referring Physician RHEUMATOLOGY 01/29/21 Carole Neal MD [address] [place] [address] PULMONARY DISEASE 01/29/21 documented as of this encounter
--- OUTSIDE RECORDS SUMMARY | 2025-04-08 12:27 | XMS_ITS | Clinical Summary ---
Author Organization [facility] Address [address] [facility] [place] [address] Phone Care Team Providers Care Tank Charger Name Role Phone Joseph Sweet MD Primary Care Provider [phone] Kenneth Ward DPM Unavailable [phone] Hermann Olivia DO Unavailable [phone] Naida Odonnell MD Unavailable Allergies Active [...] patient's age to complete this topic Insurance [facility] MEDICARE Care Teams Tank Charger Relationship Specialty Start Date End Date Joseph Sweet MD [address] [place] [id number] PCP - General Family Medicine 06/12/15 Kenneth Ward DPM [address] [place] [address] Podiatry 06/12/15 Hermann Olivia [place] [address] Gastroenterology 02/02/16 Naida Odonnell MD [address] [place] [address] Family Medicine 02/02/16
--- OUTSIDE RECORDS SUMMARY | 2025-04-08 12:27 | XMS_ITS | Encounter Summary ---
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 03/05/2021 06/08/2021 07/03/2021 3:[address] COVID: Suspected 11/03/2024 11/03/2024 11/03/2024 12:41 PM CDT COVID: Suspected 11/05/2024 11/05/2024 11/05/2024 1:53 PM CDT documented as of this encounter Care Teams Mine Technician Relationship Specialty Start Date End Date Gin Wilson MD [address] [place] [address] [place] [address] [place] [address] PCP - General Family Practice 06/19/19 01/31/21 Gin Wilson MD [address] [place] [address] [place] [address] [place] [address] PCP - General Family Practice 02/01/21 12/04/23 Rohith Sen MD [address] [place] [address] [place] [address] [place] [address] PCP - General Family Practice 12/05/23 10/01/24 Beatriz Cuevas NP [address] [place] [address] PCP - General Nurse Practitioner 10/02/24 Karan Ngo MD [address] [place] [address] [place] [address] [place], [place] [id number] Consulting Physician Cardiology 11/02/18 documented as of this encounter
--- OUTSIDE RECORDS SUMMARY | 2025-04-08 12:27 | XMS_ITS | Encounter Summary ---
Author Organization [facility] Address [address] [place] [address] Care Team Providers Care Retort Unloader Name Role Phone Karan Ngo MD Unavailable Abdulkadir Craft MD Unavailable Carole Neal MD Unavailable [phone] Rohith Sen MD Primary Care Provider [phone] Encounter Details Date Type Department Care Team (Late st Contact Info) Description 11/17/2015 Abstract [facility] CONVERSION [address] [place], [place] [id number] , Olinda Polo MD Social History Tobacco [...] on filedocumented in this encounter Care Teams Retort Unloader Relationship Specialty Start Date End Date Rohith Sen MD [address] [place] [address] PCP - General FAMILY PRACTICE 02/03/23 Karan Ngo MD [address] [address] CARDIOVASCULAR DISEASE 01/29/21 [place] [address] [place] [address] Referring Physician RHEUMATOLOGY 01/29/21 Carole Neal MD [address] [place] [address] PULMONARY DISEASE 01/29/21 documented as of this encounter
--- OUTSIDE RECORDS SUMMARY | 2025-04-08 12:28 | XMS_ITS | Clinical Summary ---
Author Organization [facility] Address [address] [place] [address] Care Team Providers Care Orange Picker Name Role Phone Karan Ngo MD Unavailable Abdulkadir Craft MD Unavailable Carole Neal MD Unavailable [phone] Rohith Sen MD Primary Care Provider [phone] Allergies Active Allergy Reactions Criticality Noted Date [...] topic Insurance [employer] MEDICARE Care Teams Orange Picker Relationship Specialty Start Date End Date Rohith Sen MD [address] [place] [address] PCP - General FAMILY PRACTICE 02/03/23 Karan Ngo MD [address] [address] CARDIOVASCULAR DISEASE 01/29/21 [place] [address] [place] [address] Referring Physician RHEUMATOLOGY 01/29/21 Carole Neal MD [address] [place] [address] PULMONARY DISEASE 01/29/21
--- OUTSIDE RECORDS SUMMARY | 2025-04-08 12:28 | XMS_ITS | Clinical Summary ---
Author Organization [facility] [address] [facility] [address] Address [address] [place] [address] Care Team Providers Care Quick Technician Name Role Phone Karan Ngo MD Unavailable Beatriz Cuevas NP Primary Care Provider [phone] Allergies Active Allergy Reactions Criticality Noted Date [...] type 2 diabetes mellitus, Reported on 01/16/2025 ipratropium-albut Caleb (DUO-NEB) 0.5-2.5 mg/3 mL nebulizer [...] doses. 25 tablet 3 12/17/19 22 Active ezetimibe (ZETIA) 10 mg tablet Take 1 tablet (10 mg total) by mouth daily 30 tablet 11 01/17/20 24 Active glycopyrrolate-fo rmoteroL (BEVESPI AEROSPHERE) 9-4.8 mcg inhaler Inhale 2 puffs 2 (two) times a day 1 each 11 11/08/19 25 Active nicotine (NICODERM CQ) [address] 1 patch on the skin daily for 24 hours 30 patch 2 11/08/19 25 Active empagliflozin (JARDIANCE) 25 mg tablet Take 1 tablet (25 mg total) by mouth daily 01/02/20 25 Active isosorbide mononitrate ER (IMDUR) 60 mg 24 hr tabletIndications :Coronary artery disease of [place] artery of [place] heart with stable angina pectoris TAKE 1 TABLET BY MOUTH EVERY DAY 90 tablet 3 01/24/20 25 Active carvediloL (COREG) 3.125 mg tablet TAKE 1 TABLET BY MOUTH TWICE A DAY WITH MEALS 180 tablet 3 01/24/20 25 Active rosuvastatin (CRESTOR) 40 mg tablet TAKE 1 TABLET BY MOUTH EVERY DAY AT NIGHT 90 tablet 3 02/04/20 25 Active HYDROcodone-aceta minophen (NORCO) 5-325 mg per tabletIndications :Pain Take 1 tablet by mouth every 6 (six) hours as needed for pain 12 tablet 02/04/20 25 Active lisinopriL (PRINIVIL,ZESTRIL ) 5 mg tablet TAKE 1 TABLET BY MOUTH EVERY DAY 90 tablet 1 03/06/20 25 Active clopidogreL (PLAVIX) 75 mg tablet TAKE 1 TABLET BY MOUTH EVERY DAY 90 tablet 3 03/07/20 25 Active Active Problems Problem Noted Date Diagnosed Date COPD exacerbation (CMS/HCC) 10/10/2020 Acute on chronic respiratory failure with hypoxe brian 10/10/2020 Pancreatic cyst 03/23/2020 Type 2 diabetes mellitus wit h hyperglycemia, with long-term current use of insulin 03/16/2020 Assessment & Plan (03/16/2020 2:22 PM FIELD HUMAN RESOURCES MANAGER): Diagnosed in 2013- Had recurrent pancreatitis. [...] 03/16/2020 Assessment & Plan (03/16/2020 2:23 PM FIELD HUMAN RESOURCES MANAGER): Complicated with CAD Controlled with medication [...] (11/02/2018): Added automatically from request for surgery [id number] Assessment & Plan (12/11/2018 5:10 PM CDT): [...] CAD. Eye exam - 01/2019 Results for SARITAALBERTO DAMARI ( ) as of 09/20/2019 14:37 Ref. [...] CDT - 02/03/2025 3:07 PM CDT Emergency [facility] Emergency Department [address] [place] [address] Abdominal pain, unspecified abdominal location (Primary Dx) Discharge Disposition: Discharge to home or self care 01/23/2025 Telephone [facility] Medical [facility] Cardiology [address] [place] [address] Karan Ngo MD 01/17/2025 2:15 PM CDT - 01/17/2025 4:55 PM CDT Emergency [facility] Emergency Department [address] [place] [address] Left genital labial abscess (Primary Dx) Discharge Disposition: Discharge to home or self care 01/16/2025 10:30 AM CDT Office Visit [facility] Medical [facility] Cardiology [address] [place] [address] Marta Concepcion NP Coronary artery disease of [place] artery of [place] heart with stable angina pectoris; Infrarenal abdominal [...] x feb 2018 last 2 placed / AR 2017 COPD (chronic obstructive pu lmonary disease) [...] drink = 0.6 oz pur e alcohol) [facility] Utilities Answer Date Recorded In [...] often do you attend chur ch or restorationist services? More than 4 times per year 11/06/2024 Do you belong to any clubs o r organizations such as confucianist groups, unions, fraternal or athletic groups, or [...] any time in the past 12 m [facility], were you homeless or living in a fdc (including now)? No 11/06/2024 Personal Safety Answer Date Recorded Have you ever been in or are you currently in a harmful physical or emotional relationship or is someone making you feel afraid or unsafe? Denies 02/03/2025 Comments No Sex and Gender Information Value Date Recorded Sex Assigned at Not on file Legal Sex Female 1:49 PM FIELD HUMAN RESOURCES MANAGER Gender Identity Not on file Sexual [...] Vaccine (#1) 2024 Lipid Panel 10/02/2025 10/02/2024, 0806/2023, 12/16/2021, Additional history exists Fall Risk Assessment 11/07/2025 11/07/2024, 06/28/19 19 eGFR 02/03/2026 02/03/2025, 12/24, 11/05/2024, Additional history exists Covid-19 Vaccine Discontinued 07/31/2020, 07/10/2020 Medical Devices Implanted Type Area Mender Hand Device Identifier Shelf Expiration Date Model / Serial / Lot System Coronary Stent Synergy Pebax Everolimus Eluting [place] Chromium Plga L12 Mm L144 Cm Od2.25 Mm Radiopaque 1 Access Port Inflation Lumen Accepts .014 In Guidewire - [id number] Implanted:Qty: 1 on 04/06/2017 by Karan Ngo MD at [facility] uberall 12/19/2017 [id number] / / [id number] Procedures Procedure Name Priority Date/Time Associated Diagnosis [...] HEMOGLOBIN A1C Routine 03/16/2020 2 :10 PM FIELD HUMAN RESOURCES MANAGER Type 2 diabetes mellitus with hyperglycemia, with long-term current use of insulin ([facility]) DIABETES EYE EXAM Routine 02/06/2019 from [...] Calixto Smith M.D. AM: AM Report ID: [id number] Reading Location: [place] [address] Procedure Note Luis, Calixto, MD - 02/03/2025 EXAM DESCRIPTION: CT ABDOMEN [...] Calixto Smith M.D. AM: AM Report ID: [id number] Reading Location: [id number] Kvng [facility] IMG CT PROCEDURES Final Re [...] of Race in Diagnosing Kidney Disease, JASN 202). The CKD-EPI equation should not be used for patients with unstable renal function and has not been validated in children and those over 70. Current interpretive data was last reviewed 2021. Blood 02/03/2025 1:39 PM CDT 02/03/2025 1:45 PM CDT Kvng ARIZM[facility] LAB BLOOD ORDERABLES Final Result AUSTIN CUELLAR ([place]ARGILL) 1 [facility] Department [place] [address] * Differential, auto (02/03/2025 1:39 PM CDT) Neutrophil abs 2.84 1.50 - 6.50 K/cumm Imm gran abs 0.01 0.00 - 0.10 K/cumm [facility] ([place]) Lymphocyte abs 1.61 0.80 - 3.30 K/cumm [facility] ([place]) Monocyte abs 0.34 0.20 - 0.80 K/cumm [facility] ([place]) Eosinophil abs 0.15 0.00 - 0.50 K/cumm [facility] ([place]) Basophil abs 0.03 0.00 - 0.10 K/cumm [facility] ([place]) Neutrophil pct 57.1 % [facility] ([place]) Comment: Interpretive [...] Lymphocyte pct 32.3 % [facility] ([place]) Comment: Interpretive [...] ORDERABLES Final Result [facility] ([place]) 1 [facility] Department [place] [address] * (ABNORMAL) CBC with auto differential (02/03/2025 [...] RDW SD 50.8(H) 35.7 - 48.1 fL [facility] ([place]) NRBC abs 0.00 0.00 - 0.01 K/cumm [facility] ([place]) Blood 02/03/2025 1:39 PM CDT 02/03/2025 1:45 PM CDT Kvng [facility] LAB BLOOD ORDERABLES Final Result [facility] ([place]) 1 [place] [address] * Lipase (02/03/2025 1:39 PM CDT) Lipase 85 10 - 99 Units/L Blood 02/03/2025 1:39 PM CDT 02/03/2025 1:45 PM CDT Kvng [facility] LAB BLOOD ORDERABLES Final Result AUSTIN CUELLAR (ANISH) [address] [place] [address] * (ABNORMAL) Amylase (02/03/2025 1:39 PM CDT) Pathologist [facility] Amylase 119(H) 30 - 99 Units/L Blood 02/03/2025 1:39 PM CDT 02/03/2025 1:45 PM CDT Kvng [facility]ZM[facility] LAB BLOOD ORDERABLES Final Result AUSTIN CUELLAR (ANISH) 1 [place] [address] * Comprehensive metabolic panel (02/03/2025 1:39 PM CDT) Sodium 140 135 - 145 mmol/L Potassium, pl 4.4 3.3 - 4.9 mmol/L [facility] (ANISH) Chloride 105 97 - 110 mmol/L [facility] ([facility]ISH) CO2 27 22 - 32 mmol/L [facility] ([facility]) Anion gap 8 2 - 15 mmol/L [facility] ([facility]) BUN 12 6 - 25 mg/dL [facility] ([facility]ISH) Creatinine 0.99 0.60 - 1.10 mg/dL [facility] ([facility]) Glucose 181 70 - 199 mg/dL [facility] (ANISH) Comment: Interpretive Data Fasting glucose >/= [...] ARIZMENDI LAB BLOOD ORDERABLES Final Result AUSTIN CUELLAR (ANISH) 1 [facility] Department [place] [address] * Incision and Drainage (01/17/2025 4:30 PM CDT) Narrative Lauryn Frye PA - 01/17/2025 4:30 PM CDT Lauryn Frye PA 01/17/2025 7:04 PM Incision and Drainage Date/Time: 01/17/2025 4:30 PM Performed by: Lauryn Frye PA Authorized by: Saitsh Estrada MD RN Notified of Procedure: yes [...] BLOOD ORDERABLES Final Resu lt [facility] ([place]) 1 [facility] Department [place] [address] * (ABNORMAL) Differential, auto (01/17/2025 2:59 PM [...] ORDERABLES Final Resu lt Performing Organization Address [facility] Co de Phone Number ABRILMARYELLEN CUELLAR (ANISH) 1 [facility] Department [place] [address] * (ABNORMAL) Urinalysis reflex to microscopic and [...] tendency for uric acid stone formation. Source: [facility] Laboratories Current Interpretive Data was last revised [...] 01/17/2025 3:11 PM CDT Lauryn ARIZMENDI LAB MICROBIOLOGY - GENERAL ORDE RABLES Final Result Performing Organization Address [facility]/ZIP Co de Phone Number [facility] ([place]) 1 [facility] [place] [address] * (ABNORMAL) CBC with auto differential (01/17/2025 2:59 PM CDT) Pathologist [facility] WBC 10.71(H) 3.80 - 9.90 K/cumm Hgb [...] - 0.01 K/cumm [facility] ([place]) Blood 01/17/2025 2:59 PM CDT 01/17/2025 3:11 PM CDT us Lauryn ARIZMENDI LAB BLOOD ORDERABLES Final Resu lt [facility] ([place]) 1 [facility] [place] [address] * Comprehensive metabolic panel (01/17/2025 2:59 PM CDT) Pathologist [facility] Sodium 138 135 - 145 mmol/L CERNER [...] Final Resu lt [facility] ([place]) 1 [facility] Department [place] [address] * (ABNORMAL) POCT lipid panel (10/02/2024 10:59 [...] * POCT hemoglobin A1c (03/16/2020 2:10 PM FIELD HUMAN RESOURCES MANAGER) Hemoglobin A1C, POC 7.1 Blood specimen (specimen) 03/16/2020 2:10 PM FIELD HUMAN RESOURCES MANAGER Abena Ronquillo MD POINT OF CARE TEST ORDERABLES Final Result * DIABETES EYE EXAM (02/06/2019) Pathologist [facility] Diabetic Eye Exam Unknown Wendy Wolff MD HEALTH MAINTENANCE Final Result from Last 3 Months or Most Recently Relevant to Health Maintenance Insurance [facility] MEDICARE ADVANTAGE [facility] Address: [address] [address] [place] [address] [facility] MEDIC[facility] Address: [address] [address] [place] [address] [facility] MED[facility] Address: [address] [address] [place] [address] Advance Directives For more information, please contact: [phone] * Full Code (Latest Code Status on File) Date Activated Date Inactivated Comments 11/05/2024 4:12 PM 11/07/2024 3:15 PM * Full Code Date Activated Date Inactivated Comments 10/10/2020 6:56 PM 10/12/2020 5:57 PM * Full Code Date Activated Date Inactivated Comments 11/30/2018 7:41 AM 11/30/2018 1:32 PM * Full Code Date Activated Date Inactivated Comments 04/06/2017 3:48 PM 04/07/2017 2:06 PM Care Teams Quick Technician Relationship Specialty Start Date End Date Beatriz Cuevas NP [address] [place] [address] PCP - General Nurse Practitioner 10/02/24 Karan Ngo MD [address] [address] [place] [address] Consulting Physician Cardiology 11/02/18
[2025-04-08 19:28] LABS: Alanine Aminotransferase 17 U/L (6-35); Albumin Level 4.4 g/dL (3.5-5.1); Alkaline Phosphatase 90 U/L (38-126); Anion Gap 7 mmol/L (4-12); Aspartate Amino Transferase 51 U/L (14-36); Bilirubin,Total 0.4 mg/dL (0.2-1.3); Blood Urea Nitrogen 16 mg/dL (7-17); Calcium 10.0 mg/dL (8.4-10.2); Carbon Dioxide 28 mmol/L (22-30); Chloride 106 mmol/L (98-107); Cholesterol 129 mg/dL (0-200); Estimated Glomerular Filt Rate 58; Glucose 132 mg/dL (65-110); HDL Direct 37 mg/dL; Potassium 4.4 mmol/L (3.4-5.0); Sodium 141 mmol/L (137-145); Total Protein 8.0 g/dL (6.3-8.2); Triglycerides 219 mg/dL (<150)
[2025-04-08 19:53] LABS: Hemoglobin A1C 7.0 % (<5.7)
== END 2025-04-08 10:35 | disposition home or self-care (01) ==
LOC: ANHBWCLAB 10:34
PROVIDERS: PCP Nurse Practitioner Adult Health; Visit Provider Nurse Practitioner Adult Health
DX: E11.59 Type 2 diabetes mellitus with other circulatory complications (principal); Z79.4 Long term (current) use of insulin; E11.69 Type 2 diabetes mellitus with other specified complication
CPT/HCPCS: 36415; 80053; 80061; 83036